=== PATIENT | male | born 1940 | race Caucasian/White ===

== ENCOUNTER 2020-05-19 13:01 | Emergency (ER) | payer MEDICARE, BC, SELFPAY ==
[2020-05-19 13:26] VITALS: BP 97/62; PULSE 65; RESP 18; TEMP 36.3; O2SAT 90
--- NOTE | 2020-05-19 13:45 | ED.GENADUL_ITS ---
Discharge Plan Disposition Patient Disposition: HOME Condition: Good Discharge Details Clinical Impression: Shingles Primary Care Provider: Ricki Traylor ED Provider: Crista Adler Home Meds and New Rx's Prescriptions: New valacyclovir 1 gram tablet 1,000 mg PO TID 7 Days Qty: 21 RF: 0 Continued furosemide 20 MG tablet 20 mg PO DAILY RF: 0 lisinopril [Zestril] 5 MG tablet 5 mg PO DAILY RF: 0 clopidogrel 75 MG tablet 75 mg PO DAILY RF: 0 atorvastatin [Lipitor] 40 MG tablet 40 mg PO HS RF: 0 metoprolol tartrate [Lopressor] 50 MG tablet 50 mg PO BID RF: 0 acetaminophen 325 MG tablet 650 mg PO Q6H PRNRF: 0 Discharge Instructions Instructions: Shingles (ED) Additional Instructions: Encourage water intake. Please take the valacyclovir as prescribed. Your rash is consistent with shingles. I will touch base again with your primary care to discuss your upcoming nuclear stress test and postponing this. Please return if you develop fever/chills, increased pain or other new/worsening symptoms. Otherwise, please follow-up with primary care next week for reevaluation. Referrals: Ricki Traylor [Primary Care Provider] - Discharge Data Discharge Date/Time-TO BE ENTERED AT DEPARTURE: 05/19/20 14:23 Medical Decision Making Patient is a very pleasant 79-year-old male presenting today with chief complaint of rash. He reports that rash began approximately 1 week ago. Initially he noted 1 lesion on the right side of his upper back. States that this then went to. States that he is held steady for a little while but recently the rash has really been increasing. He states that it is burning and occasionally he will get a snap of pain. He denies any fevers or chills. Has not received his zoster vaccine. Has lengthy list of comorbidities including history of cancer. He does report being immunocompromised, I believe he is basing this on his multiple comorbidities. He is not on any medications that owuld immunocompromise him, no hx of HIV. On exam, patient does have a well demarcated dermatomal rash. Is primarily clustered in the back of the mid thoracic spine. There are 3 darkened areas th at appear to be the original and healing areas of rash. However, inter- dispersed with this are small vesicular wound surrounded by erythema. He also have a similar vesicular pattern under the right breast. This does correlate with shingles. Will the patient is outside of the 72-hour kriss for treatment, he is continuing to develop new lesions and is potentially immunocompromised may be feel that antiviral therapy would be appropriate for this patient. He and I discussed expected course. We discussed return precautions. Discussed that he is contagious and to take care during this time. He will f/u with PCP in the next week for reevaluation. All of his quesitons and concerns were addressed, he si in agreement with this plan. HPI General Mode of arrival: ambulatory . Date/Time Provider Initiated Documentation: 05/19/20 13:45 . Limitations to Documentation: no limitations . Information obtained by: patient and RN notes reviewed . History of Present Illness 79 year old M presents to the emergency department with the chief complaint of rash to right side of torso, described as moderate, with intensity rated at 5. Quality is described as burning (zap occassionally ), and is localized to the back. Patient reports radiation to (radiates anteriorly along dermatome). Patient started experiencing this day(s) and it has been constant. No relieving factors improve symptom(s), No exacerbating factors reported . Patient notes rash; denies cough, fever/chills, malaise and shortness of breath. Patient did receive the following treatments prior to arrival, none Related Data Home Medications Medication Instructions Recorded Confirmed acetaminophen 650 mg PO Q6H PRN 10/03/17 05/19/20 atorvastatin [Lipitor] 40 mg PO HS 10/03/17 05/19/20 clopidogrel 75 mg PO DAILY 10/03/17 05/19/20 furosemide 20 mg PO DAILY 10/03/17 05/19/20 lisinopril [Zestril] 5 mg PO DAILY 10/03/17 05/19/20 metoprolol tartrate [Lopressor] 50 mg PO BID 10/03/17 05/19/20 valacyclovir 1,000 mg PO TID 7 Days #21 tab 05/19/20 Previous Rx's Medication Instructions Recorded valacyclovir 1,000 mg PO TID 7 Days #21 tab 05/19/20 Allergies Allergy/AdvReac Type Severity Reaction Status Date / Time No Known Allergies Allergy Unverified 10/17/17 13:58 General Stated Complaint: RashLesion ОЛЬГА: 3 Review of Systems Constitutional Constitutional: Reports as per HPI, Denies chills, Denies fever(s) and Denies headache(s) ENT Ears, Nose, Mouth, and Throat: Denies headache(s) Cardiovascular Cardiovascular: Reports as per HPI, Denies chest pain and Denies dyspnea Respiratory Respiratory: Reports as per HPI, Denies cough and Denies dyspnea Integumentary/Breasts Skin/Breast: Reports as per HPI and Reports rash Neurologic Neurologic: Denies headache(s) PFSH Surgical History Arthroplasty of knee Bilateral Coronary Artery Bypass Gaft (CABG) (~1994) x4 Lumbar Laminectomy (10/25/15) Neck (~2004) Prostatectomy (~1999) +Carcinoma Family History Mother Essential hypertension Congestive heart failure Father Diabetes Stroke Social History Smoking/Tobacco Use Status: Former Tobacco Use Alcohol Intake: current Alcohol Intake frequency: a few times a week Drug use: Never Substance use type: does not use Do you feel safe at home: Yes Do you feel safe in your relationship?: Yes Exam Const General: cooperative, healthy appearing, comfortable and no acute distress Nutritional Appearance: well nourished and overweight Orientation: alert and awake Chest Chest: rash Chest/axillae images: 1. area of erythematous based rash with raised vesicles. Tender to palpation Resp Effort & Inspection: normal respiratory effort, able to speak in complete sentences and no respiratory distress Cardio Rate: regular rate Rhythm: regular rhythm Back/Spine/Pelvis Back/spine/pelvis image: 1. area of rash. There are three larger areas that appear in a more advanced stage of healing. Scattered between this are erythematous based vesicular lesions consistent with zoster.No fluctuant. No opening of the skin. Tender to palpation. Skin Rashes: rashes noted Neuro General: patient alert and patient awake Cognition: normal cognition Speech: speech normal Gait: normal gait Psych Appearance: grossly normal and well kempt Mental Status: mental status grossly normal Speech and Movement: speech and movement normal Course Vital Signs Vital signs: Vital Signs Temperature 36.3 C L 05/19/20 13:26 Pulse 65 05/19/20 13:26 Respiratory Rate 18 05/19/20 13:26 Blood Pressure 97/62 L 05/19/20 13:26 Pulse Oximetry 90 L 05/19/20 13:26 Temperature 36.3 C L 05/19/20 13:26 Temperature Source Temporal Artery Scan 05/19/20 13:26 Pulse 65 05/19/20 13:26 Respiratory Rate 18 05/19/20 13:26 Respiratory Effort Non-Labored 05/19/20 13:33 Blood Pressure 97/62 L 05/19/20 13:26 Blood Pressure Position Sitting 05/19/20 13:26 Pulse Oximetry 90 L 05/19/20 13:26 Oxygen Delivery Method Room Air 05/19/20 13:26 Oxygen Flow Rate 0 05/19/20 13:26 Pain Level 5 05/19/20 13:26
== END 2020-05-19 14:23 | disposition home or self-care (01) ==
PROVIDERS: Emergency Provider Physician Assistant; PCP Internal Medicine
DX: B02.9 Zoster without complications (principal)
CPT/HCPCS: 99283

== ENCOUNTER 2020-10-23 15:58 | Emergency (ER) | payer MEDICARE, BC, SELFPAY ==
[2020-10-23 16:15] VITALS: BP 85/51; PULSE 81; RESP 16; TEMP 36.3; O2SAT 93
--- NOTE | 2020-10-23 16:21 | W.ED.GENAD ---
Discharge Plan Disposition Patient Disposition: HOME Condition: Good Discharge Details Clinical Impression: Acute UTI Primary Care Provider: Jaylan Quintero ED Provider: Joaquín Godoy Home Meds and New Rx's Prescriptions: New levofloxacin 750 mg tablet 750 mg PO DAILY 5 Days Qty: 5 RF: 0 Continued furosemide 20 MG tablet 20 mg PO DAILY RF: 0 lisinopril [Zestril] 5 MG tablet 5 mg PO DAILY RF: 0 clopidogrel 75 MG tablet 75 mg PO DAILY RF: 0 atorvastatin [Lipitor] 40 MG tablet 40 mg PO HS RF: 0 metoprolol tartrate [Lopressor] 50 MG tablet 50 mg PO BID RF: 0 acetaminophen 325 MG tablet 650 mg PO Q6H PRNRF: 0 Discharge Instructions Instructions: Urinary Tract Infection in Men (ED) Additional Instructions: At this time you show evidence of urinary tract infection. Please take the new medication Levaquin as directed. We have given you today's pill, you can take 1 pill daily after that for the next 5 days. The prescription has been sent to your [facility] pharmacy on file. If you notice any worsening of your symptoms, or any new symptoms such as vomiting, diarrhea, fever, chills, shortness of breath, chest pain, numbness, weakness, or fainting , please return immediately to the emergency department for reevaluation. Please follow up with your primary care provider as soon as possible for reassessment and reevaluation. As always, it was a pleasure participating in your medical care today. Referrals: Jaylan Quintero [Primary Care Provider] - Medical Decision Making This is an 79-year-old male with a past medical history prostatectomy, CABG, hypertension, cardiac valve replacement Plavix, who presents today for evaluation of urinary odor. Patient states he has had a history of urinary tract infections over the past 1 to 2 years. Most recent time was about 8 or 9 months ago. Patient states that for the last 1 to 2 months he has noticed an increase in order for Sb, change in the cloudiness, but denies any pain, fever, chills, flank pain, dysuria, lightheadedness, and shortness of breath, chest pain or syncope. He does have a history of prostate surgery in the distant past, and feels that this has not changed anything for him. He has no other complaints at this time. No recent antibiotic use. No other modifying factors. Physical exam is unremarkable, patient's blood pressure is on the low side, however he has no tachycardia, but he does state that his blood pressure always runs on the low side. Review of his previous blood pressures from the past few years do demonstrate evidence of this. Clinically the patient has no fever or chills and does not clinically demonstrate evidence of sepsis. He does have walked around she has no lightheadedness and is notably well. We will get a UA for evaluation of infection. Will monitor closely and reassess. 5 PM Urinalysis has returned and demonstrates evidence of urinary tract infection being nitrite positive, with small leuk esterase and elevated WBCs. Patient remained stable, and was notably well. He shows no signs of toxemia, clinical instability, or fulminant systemic infection. Patient feels well and would like to go home. Patient be started on Levaquin HPI General Date/Time Provider Initiated Documentation: 10/23/20 16:03. HPI Narrative: This is an 79-year-old male with a past medical history prostatectomy, CABG, hypertension, cardiac valve replacement Plavix, who presents today for evaluation of urinary odor. Patient states he has had a history of urinary tract infections over the past 1 to 2 years. Most recent time was about 8 or 9 months ago. Patient states that for the last 1 to 2 months he has noticed an increase in order for Sb, change in the cloudiness, but denies any pain, fever, chills, flank pain, dysuria, lightheadedness, and shortness of breath, chest pain or syncope. He does have a history of prostate surgery in the distant past, and feels that this has not changed anything for him. He has no other complaints at this time. No recent antibiotic use. No other modifying factors. Related Data Home Medications Medication Instructions Recorded Confirmed acetaminophen 650 mg PO Q6H PRN 10/03/17 05/19/20 atorvastatin [Lipitor] 40 mg PO HS 10/03/17 05/19/20 clopidogrel 75 mg PO DAILY 10/03/17 05/19/20 furosemide 20 mg PO DAILY 10/03/17 05/19/20 lisinopril [Zestril] 5 mg PO DAILY 10/03/17 05/19/20 metoprolol tartrate [Lopressor] 50 mg PO BID 02/23/18 10/09/20 levofloxacin 750 mg PO DAILY 5 Days #5 tab 10/23/20 Previous Rx's Medication Instructions Recorded levofloxacin 750 mg PO DAILY 5 Days #5 tab 10/23/20 Allergies Allergy/AdvReac Type Severity Reaction Status Date / Time No Known Allergies Allergy Unverified 10/17/17 13:58 General ОЛЬГА: 3 Review of Systems All systems reviewed & are unremarkable except as noted in HPI and below PFSH Surgical History Arthroplasty of knee Bilateral Coronary Artery Bypass Gaft (CABG) (~1994) x4 Lumbar Laminectomy (10/25/15) Neck (~2004) Prostatectomy (~1999) +Carcinoma Family History Mother Essential hypertension Congestive heart failure Father Diabetes Stroke Social History Smoking/Tobacco Use Status: Former Tobacco Use Smoking risk assessment performed?: Yes Alcohol Intake: current Alcohol Intake frequency: a few times a week Drug use: Never Substance use type: does not use Do you feel safe at home: Yes Do you feel safe in your relationship?: Yes Exam Narrative Exam Narrative: 1.Const: Well-nourished, Well-developed, appearing stated age 2.Eyes: PERRL, no conjunctival injection, and symmetrical lids. 3.ENT: Atraumatic external nose and ears. Moist MM. Neck: Symmetric, trachea midline, No thyromegaly. 4.CVS: +S1/S2, No murmurs or gallops. Peripheral pulses 2+ and equal in all extremities. Brisk capillary refill in all extremities. 5.RESP: Unlabored respiratory effort. Clear to auscultation bilaterally. No wheezes rales or rhonchi 6.GI: Soft, Nontender/Nondistended, No hepatosplenomegaly. No guarding or rebound. 7.MSK: Normocephalic/Atraumatic, Extremities w/o deformity or ttp No cyanosis or clubbing, Normal movement of all extremities 8.Skin: Warm, Dry. No rashes or lesions. 9.Neuro: rehabilitation assistant II-XII grossly intact. Sensation grossly intact, no focal neurologic deficits. 10.Psych: (AAO) x3. Appropriate mood and affect
[2020-10-23 16:31] LABS: Bilirubin Negative (Negative); Blood Small (Negative); Clarity Cloudy (Clear); Glucose Negative (Negative); Ketones Trace mg/dL (Negative); Leukocyte Esterase Small (Negative); Nitrite Positive (Negative); Urobilinogen 0.2 EU/dL (Up TO 0.2)
[2020-10-23 16:41] LABS: Bacteria Many HPF (Negative); C & S Indicated? Yes; Casts Negative LPF (Negative); Crystals Negative HPF (Negative); Epithelial Cells Rare HPF (Negative); Mucus Negative (Negative); WBC >50 HPF (0-5)
[2020-10-23] MEDS: levoFLOXacin 500 MG, levoFLOXacin 250 MG 750 MG PO (17:02)
== END 2020-10-23 17:10 | disposition home or self-care (01) ==
PROVIDERS: Emergency Provider Student in an Organized Health Care Education/Training Program; PCP Family Medicine
DX: N39.0 Urinary tract infection, site not specified (principal); B96.20 Unspecified Escherichia coli [E. coli] as the cause of diseases classified elsewhere; Z87.440 Personal history of urinary (tract) infections
CPT/HCPCS: 87077; 99283; 81003; 81015; 87086; 87186

== ENCOUNTER 2020-11-29 15:49 | Outpatient (RCR) | payer MEDICARE, BC, SELFPAY | END 2020-12-08 23:59 | disposition home or self-care (01) | LOC: CR 15:49 | PROVIDERS: PCP Family Medicine; Visit Provider Family Medicine | DX: Z51.89 Encounter for other specified aftercare (principal); I25.10 Atherosclerotic heart disease of native coronary artery without angina pectoris; Z95.5 Presence of coronary angioplasty implant and graft; Z95.1 Presence of aortocoronary bypass graft ==

== ENCOUNTER 2020-12-29 13:25 | Emergency (ER) | payer MEDICARE, BC, SELFPAY ==
[2020-12-29] VITALS (9 sets, daily range): BP systolic 92–133; BP diastolic 42–79; PULSE 66–82; RESP 18–35; TEMP 36.7–37; O2SAT 94–95
--- NOTE | 2020-12-29 13:15 | RT.EKG_ITS ---
APPROVED REPORT Exam: Resting ECG Reason for Exam: short of breath Patient Location: E HR:74 bpm ECG Measurements Heart Rate 74 AXIS WA 193 P -20 QRSd 101 QRS -2 QT 358 T 81 QTc 396 Conclusion Sinus rhythm...normal P axis, V-rate 60- 99 Low voltage, precordial leads...precordial leads <1.0mV Consider anteroseptal infarct...Q >30mS, dimin R, V1-V2
--- NOTE | 2020-12-29 13:31 | ED.GENADUL_ITS ---
Discharge Plan Disposition Patient Disposition: HOME Condition: Stable Discharge Details Clinical Impression: Acute UTI, Acute hypotension, Hyperkalemia Primary Care Provider: Jaylan Quintero ED Provider: Harshil Schwartz Home Meds and New Rx's Prescriptions: New levofloxacin 750 mg tablet 750 mg PO DAILY Qty: 6 RF: 0 Continued furosemide 20 MG tablet 20 mg PO DAILY RF: 0 lisinopril [Zestril] 5 MG tablet 5 mg PO DAILY RF: 0 clopidogrel 75 MG tablet 75 mg PO DAILY RF: 0 atorvastatin [Lipitor] 40 MG tablet 40 mg PO HS RF: 0 metoprolol tartrate [Lopressor] 50 MG tablet 50 mg PO BID RF: 0 acetaminophen 325 MG tablet 650 mg PO Q6H PRNRF: 0 Discharge Instructions Instructions: Urinary Tract Infection in Men (ED), Hyperkalemia (ED) Additional Instructions: Your labs showed evidence of a urinary tract infection and your potassium was mildly elevated Your blood pressure was normal after a small amount of IV fluids which usually indicates mild dehydration follow up with your primary care provider this week for a potassium recheck and also make them aware of the lesion in the left kidney seen on cat scan that will need follow up imaging if you feel more ill, have worsening difficulty breathing or chest pain/pressure return to the emergency department Medical Decision Making 80 yo male with hx of cad s/p cabg and stents last placed in November per patient, prior aortic valve replacement, htn, who comes in with cardiac rehab staff after he showed up for a session today and his BP was noted to be in the 80's systolic. HE states he has baseline fatigue and dyspnea but is not sure if these symptoms would have brought him in as he states he normally has these symptoms. He denies any chest pain or pressure, no fevers or cough. He is caox4 on arrival without deficits, no signs of distress on exam, clear lung exam, no murmurs, and on bedside u/s has no pericardial effusion and no significant b lines, is noted to have a BP of 95/50 on exam. Unclear etiology of his symptoms based on history and exam, will obtain labs including cbc to evaluate for anem ia, evaluate for electrolyte abnormalities and also evaluate for possible nstemi with troponin though has no chest pain so doubt this.. Will obtain cxr to evaluate for infiltrate vs pulmonary edema. Will give gently hydration with 500cc normal saline and reassess labs show mild anemia, creatinine of 1.4, and potassium of 5.8, no changes on ecg, UA concerning for possible uti. He has endorses some intermittent right flank pain, will obtain cta of the chest to evaluate for PE and pneumonia given his symptoms of dyspnea and ct abdomen/pelvis as well. pt's ct shows no acute findings, has mass on left kidney which will need follow up and per patient he is already aware of this. He is sleeping on reassessment and awakens easily to voice. HAs no complaints now and BP has been normal other than when he first arrived, is now 115/70 and no hypoxia. He feels well enough for d/c and feel he is stable at this time for this. He understands he needs to see his pcp this week and have potassium rechecked. Will start levofloxacin for possible ut as well. Return precautions given Differential Diagnosis Differential Diagnosis: anemia, pneumonia, chf, copd Medical Records Medical records reviewed: Yes I reviewed the patient's medical records. Imaging Data Radiologic Study: Attestation: I personally reviewed and interpreted this imaging study as follows: Imaging: CT Scan Radiologist's impression: Exam(s) a CT:CT chest PE abd & pelvis w Exam(s) CT CHEST PE ABD ? PELVIS W EXAM:? CT CHEST PE ABD ? PELVIS W TECHNIQUE:? CT angiography of the chest, abdomen and pelvis was performed with bolus infusion of 100 cc of Omnipaque 350. Axial CT angiography was performed with multi-slice acquisition and multi-planar and/or 3D reconstructions. COMPARISON:? No exams were available for comparison FINDINGS: ?The lungs are predominantly clear.? There are multiple calcified pleural plaques bilaterally consistent with remote asbestos exposure.? No pleural effusion. No evidence of pulmonary embolic disease. No thoracic aortic dissection or aneurysm. Major branches of the thoracic aorta appear normal.? No mediastinal or hilar adenopathy. Tracheobronchial tree appears intact. There is an aortic valve prosthesis and there are multiple apparent coronary artery stents.? No cardiomegaly.? No pericardial effusion. No focal hepatic abnormality seen.? Gallbladder is contracted.? No biliary dilatation.? Pancreas is atrophic but otherwise unremarkable.? Spleen contains a few calcifications but is otherwise unremarkable. There are numerous bilateral renal cysts, the largest measuring about 5.6 cm in diameter on the left.? There is a rim calcified intermediate attenuation left lower pole renal mass, this is about 2.2 cm in greatest diameter and shows mean attenuation around 50-60 Hounsfield units.? These findings are indeterminate for malignancy.? Follow-up renal protocol CT or renal protocol MRI recommended. Note is made of a large calcification of the upper pole of the right kidney. No hydronephrosis or ureterolithiasis.. There is an abdominal aortic aneurysm which is infrarenal and which measures up to about 3.6 cm in diameter.? Major visceral branches of the aorta appear intact except for mild wall calcification.? No abdominal or pelvic adenopathy. Normal appendix. No significant abdominal wall hernia. No focal bowel pathology. There are multiple vascular clips in the pelvis.? Urinary bladder is nearly empty but appears thick walled, this is a nonspecific finding which could r epresent chronic bladder outlet obstruction, cystitis, or prior radiation treatment. IMPRESSION: No evidence of acute process of the chest abdomen or pelvis.? Multiple incidental findings as described above. Indeterminate left renal lesion, recommend renal protocol CT or MRI. RADIATION DOSE DELIVERED:? 1,699.66mGy.cm Total DLP 1,699.66mGy.cm Total DLP DATA REPOSITORY:? All CT scans at this facility are submitted to the National Radiology Data Registry (NRDR) Dose Index Registry (DIR) with the [employer] ([employer]). RADIATION OPTIMIZATION:? All CT scans at this facility use at least one of these dose optimization techniques: automated exposure control; mA and/or kV adjustment per patient size (includes targeted exams where dose is matched to clinical indication); or iterative reconstruction. Lab Data Lab results reviewed: Yes I reviewed the patient's lab results. ECG Data Attestation: I personally reviewed and interpreted this ECG (s) as follows: Prior ECG tracings: not available for review Interpretation: sinus rhythm, rate of 74, pr 193, no acute st t wave ischemic findings HPI General Mode of arrival: ambulatory . Date/Time Provider Initiated Documentation: 12/29/20 13:25 . Limitations to Documentation: no limitations . Information obtained by: patient . History of Present Illness 80 year old M presents to the emergency department with the chief complaint of low bp at cardiac rehab, described as moderate, and it has been constant. No relieving factors improve symptom(s), No exacerbating factors reported . Patient notes shortness of breath and other (fatigue ). Related Data Home Medications Medication Instructions Recorded Confirmed acetaminophen 650 mg PO Q6H PRN 10/03/17 12/29/20 atorvastatin [Lipitor] 40 mg PO HS 10/03/17 12/29/20 clopidogrel 75 mg PO DAILY 10/03/17 12/29/20 furosemide 20 mg PO DAILY 10/03/17 12/29/20 lisinopril [Zestril] 5 mg PO DAILY 10/03/17 12/29/20 metoprolol tartrate [Lopressor] 50 mg PO BID 10/03/17 12/29/20 levofloxacin 750 mg PO DAILY #6 tab 12/29/20 Previous Rx's Medication Instructions Recorded levofloxacin 750 mg PO DAILY #6 tab 12/29/20 Allergies Allergy/AdvReac Type Severity Reaction Status Date / Time No Known Allergies Allergy Unverified 12/29/20 13:34 General ОЛЬГА: 3 Review of Systems All systems reviewed & are unremarkable except as noted in HPI and below Constitutional Constitutional: Denies chills and Denies fever(s) Cardiovascular Cardiovascular: Denies chest pain Respiratory Respiratory: Denies cough Gastrointestinal Gastrointestinal: Denies abdominal pain, Denies nausea and Denies vomiting Musculoskeletal Musculoskeletal: Denies joint swelling PFSH Surgical History Arthroplasty of knee Bilateral Coronary Artery Bypass Gaft (CABG) (~1994) x4 Lumbar Laminectomy (10/25/15) Neck (~2004) Prostatectomy (~1999) +Carcinoma Family History Mother Essential hypertension Congestive heart failure Father Diabetes Stroke Social History Smoking/Tobacco Use Status: Former Tobacco Use Smoking risk assessment performed?: Yes Alcohol Intake: current Alcohol Intake frequency: a few times a week Drug use: Never Substance use type: does not use Do you feel safe at home: Yes Do you feel safe in your relationship?: Yes Exam Const General: no acute distress Orientation: alert HENMT Head: normal to inspection Ears: external ears normal General nose exam: external nose normal Mouth: moist mucous membranes Eyes General: appearance normal, both eyes and all related structures Neck Neck: normal visual inspection Resp Effort & Inspection: normal respiratory effort and able to speak in complete sentences Cardio Rate: regular rate GI Palpation: soft and nontender Skin General skin exam: no rashes or lesions noted Neuro General: patient alert and patient oriented x3 Extrem General: normal to inspection Psych Mental Status: mental status grossly normal
[2020-12-29 13:39] LABS: Abs Immature Grans 0.01 10^3/uL (0.0-0.06); Absolute Basophil Count 0.03 10^3/uL (0.0-0.2); Absolute Eosinophil Count 0.06 10^3/uL (0.0-0.7); Absolute Monocyte Count 0.51 10^3/uL (0.1-0.8); Absolute Neutrophil Count 4.02 10^3/uL (1.2-6.7); Basophils % 0.5; Eosinophils % 1.1; HCT 36.5 % (40.0-50.0); HGB 12.1 g/dL (13.5-17.5); Immature Grans % 0.2; Lymphocytes % 17.8; MCH 32.1 pg (27.0-33.0); MCHC 33.2 % (32.0-36.0); MCV 96.8 fL (80-95); MPV 8.7 fL (8.0-11.0); Monocytes % 9.1; Neutrophils % 71.3; Nucleated RBC 0 %; Platelet Count 125 10^3/uL (130-400); RBC 3.77 10^6/uL (4.36-5.78); RDW 13.2 % (11.8-14.1); RDW-SD 47.1 fL; WBC 5.63 10^3/uL (4.4-10.8)
[2020-12-29 13:40] LABS: BE (Venous) 5 mmol/L (-2-3); HCO3 (Venous) 31 mmol/L (23-28); O2 Sat (Venous) 65 %; TCO2 (Venous) 28 mmol/L (24-29); pCO2 (Venous) 55 mmHg (41-51); pH (Venous) 7.35 (7.31-7.41); pO2 (Venous) 34 mmHg
[2020-12-29] MEDS: Normal Saline 250 ML 500 ML IV (13:51)
[2020-12-29 13:54] LABS: PTT Activated 23.9 sec (21.0-27.5); Prothrombin Time 10.2 sec (9.3-11.0)
[2020-12-29 13:59] LABS: Bilirubin Negative (Negative); Blood Negative (Negative); Clarity Clear (Clear); Glucose Negative (Negative); Ketones Trace mg/dL (Negative); Leukocyte Esterase Trace (Negative); Nitrite Negative (Negative); Specific Gravity 1.025 (1.005-1.025); pH 5.5 (5-8)
[2020-12-29 14:00] LABS: ALT 43 U/L (16-63); AST 25 U/L (15-37); Albumin 3.7 g/dL (3.4-5.0); Alkaline Phosphatase 84 U/L (46-116); Anion Gap 4.3 mmol/L (3-11); BUN 39 mg/dL (7-18); Bilirubin, Total 0.4 mg/dL (0.2-1.0); CO2 30.7 mmol/L (21.0-32.0); CREATININE 1.4 mg/dL (0.70-1.30); Calcium 8.6 mg/dL (8.5-10.1); Chloride 105 mmol/L (98-107); Estimated GFR 48.64 (mL/min/1.73m2); Glucose 137 mg/dL (74-106); Lipase 91 U/L (73-393); Magnesium 2.1 mg/dL (1.8-2.4); Potassium 5.8 mmol/L (3.5-5.1); Sodium 140 mmol/L (136-145)
--- NOTE | 2020-12-29 14:00 | DI.CT_ITS ---
Exam(s) CT CHEST PE ABD PELVIS W EXAM: CT CHEST PE ABD PELVIS W TECHNIQUE: CT angiography of the chest, abdomen and pelvis was performed with bolus infusion of 100 cc of Omnipaque 350. Axial CT angiography was performed with multi-slice acquisition and multi-planar and/or 3D reconstruc tions. COMPARISON: No exams were available for comparison FINDINGS: The lungs are predominantly clear. There are multiple calcified pleural plaques bilaterally consist ent with remote asbestos exposure. No pleural effusion. No evidence of pulmonary embolic disease. No thoracic aortic dissection or aneurysm. Major branches of the thoracic aorta appear normal. No medi astinal or hilar adenopathy. Tracheobronchial tree appears intact. There is an aortic valve prosthesis and there are multiple apparent coronary artery stents. No cardi omegaly. No pericardial effusion. No focal hepatic abnormality seen. Gallbladder is contracted. No biliary dilatation. Pancreas is a trophic but otherwise unremarkable. Spleen contains a few calcifications but is otherwise unremarkab le. There are numerous bilateral renal cysts, the largest measuring about 5.6 cm in diameter on the left. There is a rim calcified intermediate attenuation left lower pole renal mass, this is about 2.2 cm in greatest diameter and shows mean attenuation around 50-60 Hounsfield units. These findings are in determinate for malignancy. Follow-up renal protocol CT or renal protocol MRI recommended. Note is made of a large calcification of the upper pole of the right kidney. No hydronephrosis or ureterolithiasis.. There is an abdominal aortic aneurysm which is infrarenal and which measures up to about 3.6 cm in di ameter. Major visceral branches of the aorta appear intact except for mild wall calcification. No a bdominal or pelvic adenopathy. Normal appendix. No significant abdominal wall hernia. No focal bowel pathology. There are multiple vascular clips in the pelvis. Urinary bladder is nearly empty but appears thick w alled, this is a nonspecific finding which could represent chronic bladder outlet obstruction, cystit is, or prior radiation treatment. IMPRESSION: No evidence of acute process of the chest abdomen or pelvis. Multiple incidental findings as describ ed above. Indeterminate left renal lesion, recommend renal protocol CT or MRI. RADIATION DOSE DELIVERED: 1,699.66mGy.cm Total DLP 1,699.66mGy.cm Total DLP DATA REPOSITORY: All CT scans at this facility are submitted to the National Radiology Data Registry (NRDR) Dose Index Registry (DIR) with the [employer] ([employer]). RADIATION OPTIMIZATION: All CT scans at this facility use at least one of these dose optimization te chniques: automated exposure control; mA and/or kV adjustment per patient size (includes targeted exa ms where dose is matched to clinical indication); or iterative reconstruction.
[2020-12-29 14:01] LABS: Troponin I < 0.05 ng/mL (<0.06)
[2020-12-29 14:07] LABS: Bacteria Few HPF (Negative); C & S Indicated? Yes; Casts 3-5 Hyaline LPF (Negative); Crystals Negative HPF (Negative); Epithelial Cells Few HPF (Negative); Mucus Moderate (Negative)
--- NOTE | 2020-12-29 14:27 | NUR.NOTE ---
1345: spoke with pt's Nursing Note:
[2020-12-29] MEDS: Omnipaque 350 MG/ML 100 ML BTL IJ (14:31)
[2020-12-29] MEDS: Normal Saline - Diluent 50 ML VIAL IV (14:32)
[2020-12-29] MEDS: levoFLOXacin 500 MG, levoFLOXacin 250 MG 750 MG PO (15:27)
== END 2020-12-29 15:34 | disposition home or self-care (01) ==
PROVIDERS: Emergency Provider Emergency Medicine; PCP Family Medicine
DX: N39.0 Urinary tract infection, site not specified (principal); I95.9 Hypotension, unspecified; E87.5 Hyperkalemia
CPT/HCPCS: 36415; 71275; 74177; 80053; 82805; 83690; 93005; 96360; 99285; 81003; 81015; 83735; 84484; 85025; 85610; 85730; 87086; 93010; 99284; J3490

== ENCOUNTER 2021-01-01 16:21 | Outpatient (RCR) | payer MEDICARE, BC, SELFPAY | END 2021-01-08 23:59 | disposition home or self-care (01) | LOC: CR 16:21 | PROVIDERS: PCP Family Medicine; Visit Provider Family Medicine | DX: Z51.89 Encounter for other specified aftercare (principal); I25.10 Atherosclerotic heart disease of native coronary artery without angina pectoris; Z95.5 Presence of coronary angioplasty implant and graft | CPT/HCPCS: S9472 ==

== ENCOUNTER 2021-01-03 13:36 | Emergency (ER) | payer MEDICARE, BC, SELFPAY ==
[2021-01-03] VITALS (24 sets, daily range): BP systolic 83–116; BP diastolic 43–70; PULSE 64–84; RESP 19–32; TEMP 36.9; O2SAT 91–95
--- NOTE | 2021-01-03 13:45 | RT.EKG_ITS ---
APPROVED REPORT Exam: Resting ECG Reason for Exam: dizzy Patient Location: E HR:71 bpm ECG Measurements Heart Rate 71 AXIS UT 199 P -15 QRSd 90 QRS -9 QT 383 T 40 QTc 417 Conclusion Sinus rhythm...normal P axis, V-rate 60- 99 Inferior infarct, old...Q >35mS, II III aVF Anterior infarct, old...Q >40mS, abnormal ST-T, V2-V5
[2021-01-03] MEDS: Normal Saline 500 ML IV (14:00)
[2021-01-03 14:02] LABS: Abs Immature Grans 0.02 10^3/uL (0.0-0.06); Absolute Basophil Count 0.02 10^3/uL (0.0-0.2); Absolute Eosinophil Count 0.05 10^3/uL (0.0-0.7); Absolute Monocyte Count 0.46 10^3/uL (0.1-0.8); Absolute Neutrophil Count 4.27 10^3/uL (1.2-6.7); Basophils % 0.3; Eosinophils % 0.9; HCT 35.4 % (40.0-50.0); HGB 11.8 g/dL (13.5-17.5); Immature Grans % 0.3; Lymphocytes % 15.7; MCHC 33.3 % (32.0-36.0); MCV 95.9 fL (80-95); MPV 8.8 fL (8.0-11.0); Neutrophils % 74.8; Nucleated RBC 0 %; Platelet Count 140 10^3/uL (130-400); RBC 3.69 10^6/uL (4.36-5.78); RDW 13.2 % (11.8-14.1); RDW-SD 46.7 fL; WBC 5.72 10^3/uL (4.4-10.8)
[2021-01-03 14:22] LABS: ALT 47 U/L (16-63); AST 27 U/L (15-37); Albumin 3.6 g/dL (3.4-5.0); Alkaline Phosphatase 91 U/L (46-116); Anion Gap 6.1 mmol/L (3-11); BUN 36 mg/dL (7-18); Bilirubin, Total 0.4 mg/dL (0.2-1.0); CO2 28.9 mmol/L (21.0-32.0); CREATININE 1.7 mg/dL (0.70-1.30); Calcium 8.7 mg/dL (8.5-10.1); Chloride 105 mmol/L (98-107); Estimated GFR 38.88 (mL/min/1.73m2); Glucose 128 mg/dL (74-106); Magnesium 1.9 mg/dL (1.8-2.4); Potassium 5.3 mmol/L (3.5-5.1); Sodium 140 mmol/L (136-145); Total Protein 6.9 g/dL (6.4-8.2)
[2021-01-03 14:31] LABS: Troponin I < 0.05 ng/mL (<0.06)
--- NOTE | 2021-01-03 15:32 | ED.GENADUL_ITS ---
Discharge Plan Disposition Patient Disposition: HOME Condition: Stable Discharge Details Clinical Impression: Low blood pressure reading Primary Care Provider: Jaylan Quintero ED Provider: Leroy Ochoa Home Meds and New Rx's Prescriptions: Continued levofloxacin 750 mg tablet 750 mg PO DAILY Qty: 6 RF: 0 furosemide 20 MG tablet 20 mg PO DAILY RF: 0 clopidogrel 75 MG tablet 75 mg PO DAILY RF: 0 atorvastatin [Lipitor] 40 MG tablet 40 mg PO HS RF: 0 metoprolol tartrate [Lopressor] 50 MG tablet 50 mg PO BID RF: 0 acetaminophen 325 MG tablet 650 mg PO Q6H PRNRF: 0 Discontinued lisinopril [Zestril] 5 MG tablet 5 mg PO DAILY RF: 0 Discharge Instructions Instructions: Hypotension (ED) Additional Instructions: Please stop taking lisinopril and monitor your blood pressure at least twice a day. Call your primary care physician tomorrow to discuss ongoing medication management. No exertional activities and no operating heavy machinery or motor vehicle until cleared to do so. Return to the ER for any worsening or new concerning symptoms. Referrals: Jaylan Quintero [Primary Care Provider] - Medical Decision Making 80-year-old male with history of coronary artery disease status post CABG and stent in November, aortic valve replacement, here at cardiac rehab and noted to have asymptomatic hypotension. Patient had similar presentation 5 days ago and had an extensive work-up including CT of the chest and was unremarkable. He was found to have a urinary tract infection and was started on Levaquin which he has been taking. Patient has no complaints at this time. His systolic blood pressures in the 90s which he notes is his chronic baseline. EKG to assess for arrhythmia was reviewed and interpreted by me: Sinus rhythm 71 bpm, no STEMI, nondiagnostic. I reviewed and compared to prior EKG 12/29/2020 and there is no significant change in EKG. Labs reviewed to assess for electrolyte abnormality and unremarkable. Troponin negative. I suspect his hypotension is related to antihypertensive medication as he is on both lisinopril and metoprolol. Plan will be to discontinue lisinopril and have him monitor his blood pressure at least twice a day and have him follow-up with his primary care physician. Lab Data Lab results reviewed: Yes I reviewed the patient's lab results. Labs: Laboratory Tests Range/Units 01/03/21 01/03/21 13:46 13:46 WBC (4.4-10.8) 10^3/uL 5.72 RBC (4.36-5.78) 10^6/uL 3.69 L Hgb (13.5-17.5) g/dL 11.8 L Hct (40.0-50.0) % 35.4 L MCV (80-95) fL 95.9 H MCH (27.0-33.0) pg 32.0 MCHC (32.0-36.0) % 33.3 RDW (11.8-14.1) % 13.2 Plt Count (130-400) 10^3/uL 140 MPV (8.0-11.0) fL 8.8 Immature Gran % 0.3 Neutrophils % 74.8 Lymphocytes % 15.7 Monocytes % 8.0 Eosinophils % 0.9 Basophils % 0.3 Nucleated RBC % % 0 Absolute Neutrophils (1.2-6.7) 10^3/uL 4.27 Absolute Lymphocytes (1.2-3.4) 10^3/uL 0.90 L Absolute Monocytes (0.1-0.8) 10^3/uL 0.46 Absolute Eosinophils (0.0-0.7) 10^3/uL 0.05 Absolute Basophils (0.0-0.2) 10^3/uL 0.02 Sodium (136-145) mmol/L 140 Potassium (3.5-5.1) mmol/L 5.3 H Chloride (98-107) mmol/L 105 Carbon Dioxide (21.0-32.0) mmol/L 28.9 Anion Gap (3-11) mmol/L 6.1 BUN (7-18) mg/dL 36 H Creatinine (0.70-1.30) mg/dL 1.7 H Estimated GFR/1.73 m2 (mL/min/1.73m2) 38.88 Glucose (74-106) mg/dL 128 H Calcium (8.5-10.1) mg/dL 8.7 Magnesium (1.8-2.4) mg/dL 1.9 Total Bilirubin (0.2-1.0) mg/dL 0.4 AST (15-37) U/L 27 ALT (16-63) U/L 47 Alkaline Phosphatase (46-116) U/L 91 Troponin I (<0.06) ng/mL < 0.05 Total Protein (6.4-8.2) g/dL 6.9 Albumin (3.4-5.0) g/dL 3.6 HPI General Mode of arrival: ambulatory . Date/Time Provider Initiated Documentation: 01/03/21 13:51 . Limitations to Documentation: no limitations . Information obtained by: patient . HPI Narrative: 80-year-old male presents from cardiac rehab with episode of low blood pressure. Patient denies complaint. He feels well. He notes his blood pressures typically in the 90s. He does take his antihypertensives both metoprolol twice daily and lisinopril once a day as prescribed and he did take them this morning. Cardiac rehab nursing noted his blood pressure was in the 60s. He denies having any symptoms at that time. He specifically denies chest pain abdominal pain shortness of breath or fever. Related Data Home Medications Medication Instructions Recorded Confirmed acetaminophen 650 mg PO Q6H PRN 10/03/17 01/03/21 atorvastatin [Lipitor] 40 mg PO HS 10/03/17 01/03/21 clopidogrel 75 mg PO DAILY 10/03/17 01/03/21 furosemide 20 mg PO DAILY 10/03/17 01/03/21 metoprolol tartrate [Lopressor] 50 mg PO BID 10/03/17 01/03/21 levofloxacin 750 mg PO DAILY #6 tab 12/29/20 01/03/21 Previous Rx's Medication Instructions Recorded levofloxacin 750 mg PO DAILY #6 tab 12/29/20 Allergies Allergy/AdvReac Type Severity Reaction Status Date / Time No Known Allergies Allergy Unverified 12/29/20 13:34 General Stated Complaint: Dizzy/Sync ОЛЬГА: 3 Review of Systems All systems reviewed & are unremarkable except as noted in HPI and below Constitutional Constitutional: Denies fever(s) Cardiovascular Cardiovascular: Denies chest pain and Reports dyspnea on exertion (chronic unchanged) Respiratory Respiratory: Reports dyspnea on exertion (chronic unchanged) [facility] Surgical History Arthroplasty of knee Bilateral Coronary Artery Bypass Gaft (CABG) (~1994) x4 Lumbar Laminectomy (10/25/15) Neck (~2004) Prostatectomy (~1999) +Carcinoma Family History Mother Essential hypertension Congestive heart failure Father Diabetes Stroke Social History Smoking/Tobacco Use Status: Former Tobacco Use Smoking risk assessment performed?: Yes Alcohol Intake: current Alcohol Intake frequency: a few times a week Drug use: Never Substance use type: does not use Do you feel safe at home: Yes Do you feel safe in your relationship?: Yes Exam Const General: cooperative and no acute distress HENMT Head: normocephalic and atraumatic Mouth: moist mucous membranes Eyes Conjunctivae: normal conjunctivae Sclera: normal sclerae Neck Neck: trachea midline and supple Resp Auscultation: clear to auscultation bilaterally, no rales, no rhonchi and no wheezes Cardio Rate: regular rate and not tachycardic Rhythm: regular rhythm GI Palpation: soft, not firm, no guarding, no masses, not rigid and nontender Skin General skin exam: no rashes or lesions noted Neuro General: patient alert, patient awake, patient oriented x3 and tone normal Extrem General: no edema Psych Appearance: grossly normal Mental Status: mental status grossly normal Speech and Movement: speech and movement normal Course Vital Signs Vital signs: Vital Signs Temperature 36.9 C 01/03/21 13:38 Pulse 84 01/03/21 13:38 Blood Pressure 110/54 L 01/03/21 13:38 Pulse Oximetry 92 01/03/21 13:38 Temperature 36.9 C 01/03/21 13:38 Temperature Source Temporal Artery Scan 01/03/21 13:38 Pulse 67 01/03/21 14:36 Pulse 66 01/03/21 14:50 Respiratory Rate 21 01/03/21 14:40 Respiratory Effort Non-Labored 01/03/21 14:41 Respiratory Depth Normal 01/03/21 14:41 Respiratory Pattern Normal 01/03/21 14:41 Blood Pressure 92/47 L 01/03/21 14:36 Blood Pressure Mean 58 01/03/21 14:36 Blood Pressure Position Sitting 01/03/21 13:38 Pulse Oximetry 93 01/03/21 14:50 Oxygen Delivery Method Room Air 01/03/21 13:38 Oxygen Flow Rate 0 01/03/21 13:38 Pain Level 0 01/03/21 13:38 Lab/Test Results Lab/Test Results: Laboratory Tests Range/Units 01/03/21 01/03/21 13:46 13:46 WBC (4.4-10.8) 10^3/uL 5.72 RBC (4.36-5.78) 10^6/uL 3.69 L Hgb (13.5-17.5) g/dL 11.8 L Hct (40.0-50.0) % 35.4 L MCV (80-95) fL 95.9 H MCH (27.0-33.0) pg 32.0 MCHC (32.0-36.0) % 33.3 RDW (11.8-14.1) % 13.2 Plt Count (130-400) 10^3/uL 140 MPV (8.0-11.0) fL 8.8 Immature Gran % 0.3 Neutrophils % 74.8 Lymphocytes % 15.7 Monocytes % 8.0 Eosinophils % 0.9 Basophils % 0.3 Nucleated RBC % % 0 Absolute Neutrophils (1.2-6.7) 10^3/uL 4.27 Absolute Lymphocytes (1.2-3.4) 10^3/uL 0.90 L Absolute Monocytes (0.1-0.8) 10^3/uL 0.46 Absolute Eosinophils (0.0-0.7) 10^3/uL 0.05 Absolute Basophils (0.0-0.2) 10^3/uL 0.02 Sodium (136-145) mmol/L 140 Potassium (3.5-5.1) mmol/L 5.3 H Chloride (98-107) mmol/L 105 Carbon Dioxide (21.0-32.0) mmol/L 28.9 Anion Gap (3-11) mmol/L 6.1 BUN (7-18) mg/dL 36 H Creatinine (0.70-1.30) mg/dL 1.7 H Estimated GFR/1.73 m2 (mL/min/1.73m2) 38.88 Glucose (74-106) mg/dL 128 H Calcium (8.5-10.1) mg/dL 8.7 Magnesium (1.8-2.4) mg/dL 1.9 Total Bilirubin (0.2-1.0) mg/dL 0.4 AST (15-37) U/L 27 ALT (16-63) U/L 47 Alkaline Phosphatase (46-116) U/L 91 Troponin I (<0.06) ng/mL < 0.05 Total Protein (6.4-8.2) g/dL 6.9 Albumin (3.4-5.0) g/dL 3.6
== END 2021-01-03 16:12 | disposition home or self-care (01) ==
PROVIDERS: Emergency Provider Student in an Organized Health Care Education/Training Program; PCP Family Medicine
DX: R03.1 Nonspecific low blood-pressure reading (principal); T46.5X5A Adverse effect of other antihypertensive drugs, initial encounter
CPT/HCPCS: 36415; 80053; 93005; 96360; 99284; 83735; 84484; 85025; 93010

== ENCOUNTER 2021-01-24 09:33 | Emergency (ER) | payer MEDICARE, BC, SELFPAY ==
[2021-01-24] VITALS (24 sets, daily range): BP systolic 131–160; BP diastolic 70–86; PULSE 59–60; RESP 16–29; TEMP 36.3; O2SAT 81–100
--- NOTE | 2021-01-24 09:45 | RT.EKG_ITS ---
APPROVED REPORT Exam: Resting ECG Reason for Exam: Fall, Head Injury, hx CAD Patient Location: E HR:60 bpm ECG Measurements Heart Rate 60 AXIS PA 151 P [id number] QRSd 99 QRS -17 QT 430 T 88 QTc 430 Conclusion NSR, rate 60 Inferior infarct, old...Q >35mS, II III aVF Anterior infarct, old...Q >40mS, abnormal ST-T, V2-V5
--- NOTE | 2021-01-24 09:46 | ED.GENADUL_ITS ---
Discharge Plan Disposition Patient Disposition: HOME Condition: Stable Discharge Details Clinical Impression: Closed head injury Primary Care Provider: Jaylan Quintero ED Provider: Audrey Whitney Home Meds and New Rx's Prescriptions: Continued furosemide 20 MG tablet 10 mg PO DAILY RF: 0 clopidogrel 75 MG tablet 75 mg PO DAILY RF: 0 atorvastatin [Lipitor] 40 MG tablet 40 mg PO HS RF: 0 metoprolol tartrate [Lopressor] 50 MG tablet 50 mg PO BID RF: 0 acetaminophen 325 MG tablet 650 mg PO Q6H PRNRF: 0 aspirin 81 mg Tablet,Delayed Release (Dr/Ec) 81 mg PO DAILY RF: 0 triamcinolone acetonide 0.1 % Ointment 1 applic TOPICAL BID PRNRF: 0 nitroglycerin 0.4 mg tablet, sublingual 4 mg sublingual Q5-6M PRNRF: 0 diphenhydramine-acetaminophen [Tylenol PM Extra Strength] 25-500 mg Tablet 1 tab PO QHS PRNRF: 0 Discharge Instructions Instructions: Head Injury (ED) Additional Instructions: At this time the head and neck CT shows no acute fracture or bleeding. Please closely observe over the next 1 to 2 days for any worsening headache, blurry v ision, confusion, vomiting or any concerns please return to the emergency room. Do not drink alcohol or take any altering medications that may mask worsening head injury. Follow up with primary care provider in 3-5 days. Return to ED sooner if any worsening or concerns. Increase oral fluids. Please take Tylenol 1 to 2 tablets every 4-6 hours as needed for pain and swelling. Apply ice to the bump on head. Referrals: Jaylan Quintero [Primary Care Provider] - Discharge Data Discharge Date/Time-TO BE ENTERED AT DEPARTURE: 01/24/21 12:12 Medical Decision Making 80-year-old male presents to the ER chief complaint of mechanical fall just prior to arrival. Patient tripped on some steps and fell face forward onto some concrete. He does have a hematoma noted on the left frontal scalp, superficial abrasion noted to the bridge of his nose. Possible loss of consciousness for approximately 2 to 3 seconds per patient and family. This was an unwitnessed fall per his . Per the report he was down for approximately 30 minutes and awake physically unable to get up. He denies any chest pain no abdominal pain he does report some paraspinous lateral neck tenderness. He is currently on clopidogrel daily. He has a past medical history of coronary artery disease with stents placed, COPD, prostate cancer, hypertension and blindness in his right eye. FINDINGS: BRAIN: There are no skull fractures nor fluid in the visualized paranasal sinuses. There is no evidence of intracranial hemorrhage, mass effect, or shift of midline structures. There are no extra-axial fluid collections. The ventricles are not enlarged or shifted and there is no blood within the ventricular system nor within the basal cisterns. There is mild periventricular hypodensity consistent with chronic small vessel disease. No obvious acute territorial infarction. Some calcification is noted in the left vertebral artery at the skull base as well as within the intracavernous internal carotid arteries. CERVICAL SPINE: There is evidence of previous multilevel right-sided laminectomies at C3, C4, C5 and C6 levels with stabilization plates at these levels. No obvious hardware fracture. There is no evidence of acute fracture nor listhesis. No obvious epidural hemorrhage. There is no significant facet joint malalignment. No significant osseous lesions evident. Calcification is noted at multiple levels in the lower supraspinous ligament. These calcifications do not have acute appearance. IMPRESSION: No acute intracranial findings on this noninfused CT scan of the brain. No evidence of cervical spine fracture, malalignment, nor acute compromise of the cervical spinal canal. Multilevel hardware in the cervical spine appears intact, this related to multilevel right laminectomies. Report called to ER provider. 1157: Spoke with patient and family regarding CT result, verbalized understanding. Patient is remained alert and oriented hemodynamically stable throughout stay. At this time I do prefer to be discharged home. I did discuss strict return instructions including worsening headache, confusion, blurry vision, vomiting or any signs of worsening head injury. and patient verbalized understanding. Patient has remained hemodynamically stable alert and oriented throughout stay, no evidence for acute cardiac etiology second troponin canceled. This text was generated using zervedation system, please disregard any oddities of phrase or misspellings. HPI General Mode of arrival: wheelchair . Date/Time Provider Initiated Documentation: 01/24/21 09:34 . Limitations to Documentation: no limitations . Information obtained by: patient and family () . HPI Narrative: 80-year-old male presents to the ER chief complaint of mechanical fall just prior to arrival. Patient tripped on some steps and fell face forward onto some concrete. He does have a hematoma noted on the left frontal scalp, superficial abrasion noted to the bridge of his nose. Possible loss of consciousness for approximately 2 to 3 seconds per patient and family. This was an unwitnessed fall per his . Per the report he was down for approximately 30 minutes and awake physically unable to get up. He denies any chest pain no abdominal pain he does report some paraspinous lateral neck tenderness. He is currently on clopidogrel daily. He has a past medical history of coronary artery disease with stents placed, COPD, prostate cancer, hypertension and blindness in his right eye. Related Data Home Medications Medication Instructions Recorded Confirmed acetaminophen 650 mg PO Q6H PRN 10/03/17 01/24/21 atorvastatin [Lipitor] 40 mg PO HS 10/03/17 01/24/21 clopidogrel 75 mg PO DAILY 10/03/17 01/24/21 furosemide 10 mg PO DAILY 10/03/17 01/24/21 metoprolol tartrate [Lopressor] 50 mg PO BID 10/03/17 01/24/21 aspirin 81 mg PO DAILY 01/24/21 01/24/21 diphenhydramine-acetaminophen 1 tab PO QHS PRN 01/24/21 01/24/21 [Tylenol PM Extra Strength] nitroglycerin 4 mg SUBLINGUAL Q5-6M PRN 01/24/21 01/24/21 triamcinolone acetonide 1 applic TOPICAL BID PRN 01/24/21 01/24/21 Allergies Allergy/AdvReac Type Severity Reaction Status Date / Time No Known Allergies Allergy Unverified 01/24/21 09:38 General Stated Complaint: HeadInjury ОЛЬГА: 2 Review of Systems Narrative: Constitutional: Negative for weight loss, alert and oriented, well groomed, normal body habitus, appears comfortable. HEENT: Denies headaches, blurry vision, nasal discharge, sore throat, trouble swallowing. Closed head injury with possible LOC. Chest: Denies chest pain, palpitations, irregular rhythm, hypertension. Respiratory: Denies Shortness of breath, cough, hemoptysis. GI: Denies abdominal pain, nausea, vomiting, diarrhea, constipation. : Denies dysuria, hematuria, flank pain, rectal bleeding. Neuro: Denies dizziness, blurry vision, weakness, or facial numbness. Hematologic: Denies easy bruising, intolerance to heat or cold, hair loss. [facility] Surgical History Arthroplasty of knee Bilateral Coronary Artery Bypass Gaft (CABG) (~1994) x4 Lumbar Laminectomy (10/25/15) Neck (~2004) Prostatectomy (~1999) +Carcinoma Family History Mother Essential hypertension Congestive heart failure Father Diabetes Stroke Social History Smoking/Tobacco Use Status: Former Tobacco Use Smoking risk assessment performed?: Yes Alcohol Intake: current Alcohol Intake frequency: a few times a week Drug use: Never Substance use type: does not use Do you feel safe at home: Yes Do you feel safe in your relationship?: Yes Exam Narrative Exam Narrative: General: Well Developed, Awake and Alert, conversant. Skin: Warm and Dry HEENT: Head: Left frontal scalp hematoma, no palpable deformities, Normocephalic Eyes: Pupils PERRLA, EOM's intact. No periorbital eccymosis or step off Ears: Canal patent. Tympanic membranes are clear . No burgess's sign, no hemptympanum. Nose/Face: Superficial abrasion noted to the bridge of the nose, no epistaxis, facial bones nontender to palpation and stable with manipulation. Mouth/Throat: No intraoral trauma. Teeth and mandible are intact. Neck: No midline tenderness, no step off, no deformity to palpation of C-spine. Trachea midline. Chest: No surface trauma. Nontender without crepitus or deformity. Lungs clear to ausculatation bilaterally. Heart: RRR, no rubs, murmurs or gallop. Abdomen: No abrasions, ecchymosis, or surface trauma. Nondistended. Nontender to palpation no guarding, rebound, or rigidity. Pelvis: Nontender to palpation and stable to compression. Femoral pulses strong and equal Extremities no surface trauma. Sensation intact. Peripheral pulses intact and equal.h Neuro: ANO x4, GCS 15, cranial nerves II through XII intact. Motor and sensory exam nonfocal. Reflexes are symmetric. Course Vital Signs Vital signs: Vital Signs Temperature 36.3 C L 01/24/21 09:38 Pulse 60 01/24/21 09:38 Respiratory Rate 17 01/24/21 09:38 Blood Pressure 148/73 H 01/24/21 09:38 Pulse Oximetry 87 L 01/24/21 09:38 Temperature 36.3 C L 01/24/21 09:38 Temperature Source Temporal Artery Scan 01/24/21 09:38 Pulse 60 01/24/21 09:38 Respiratory Rate 17 01/24/21 09:38 Blood Pressure 148/73 H 01/24/21 09:38 Blood Pressure Position Supine 01/24/21 09:38 Pulse Oximetry 87 L 01/24/21 09:38 Oxygen Delivery Method Room Air 01/24/21 09:38 Oxygen Flow Rate 0 01/24/21 09:38 Pain Level 0 01/24/21 09:38
[2021-01-24 10:01] LABS: Abs Immature Grans 0.01 10^3/uL (0.0-0.06); Absolute Basophil Count 0.02 10^3/uL (0.0-0.2); Absolute Eosinophil Count 0.08 10^3/uL (0.0-0.7); Absolute Lymphocyte Count 0.94 10^3/uL (1.2-3.4); Absolute Monocyte Count 0.44 10^3/uL (0.1-0.8); Absolute Neutrophil Count 3.26 10^3/uL (1.2-6.7); Basophils % 0.4; Eosinophils % 1.7; HCT 36.8 % (40.0-50.0); Immature Grans % 0.2; Lymphocytes % 19.8; MCH 32.3 pg (27.0-33.0); MCHC 32.6 % (32.0-36.0); MCV 98.9 fL (80-95); MPV 8.6 fL (8.0-11.0); Monocytes % 9.3; Neutrophils % 68.6; Nucleated RBC 0 %; Platelet Count 159 10^3/uL (130-400); RBC 3.72 10^6/uL (4.36-5.78); RDW 13.2 % (11.8-14.1); RDW-SD 47.9 fL; WBC 4.75 10^3/uL (4.4-10.8)
[2021-01-24 10:12] LABS: Prothrombin Time 10.4 sec (9.3-11.0)
[2021-01-24 10:13] LABS: ALT 40 U/L (16-63); AST 26 U/L (15-37); Albumin 3.6 g/dL (3.4-5.0); Alkaline Phosphatase 104 U/L (46-116); Anion Gap 3.9 mmol/L (3-11); BUN 25 mg/dL (7-18); Bilirubin, Total 0.6 mg/dL (0.2-1.0); CO2 33.1 mmol/L (21.0-32.0); CREATININE 1.3 mg/dL (0.70-1.30); Calcium 8.7 mg/dL (8.5-10.1); Chloride 107 mmol/L (98-107); Estimated GFR 52.98 (mL/min/1.73m2); Glucose 90 mg/dL (74-106); Lipase 145 U/L (73-393); Potassium 4.6 mmol/L (3.5-5.1); Sodium 144 mmol/L (136-145); Total Protein 6.9 g/dL (6.4-8.2)
[2021-01-24 10:17] LABS: Bilirubin Negative (Negative); Blood Negative (Negative); Clarity Clear (Clear); Glucose Negative (Negative); Ketones Negative (Negative); Leukocyte Esterase Negative (Negative); Nitrite Negative (Negative); Specific Gravity 1.025 (1.005-1.025); Urobilinogen 0.2 EU/dL (Up TO 0.2)
[2021-01-24 10:30] LABS: Troponin I < 0.05 ng/mL (<0.06)
== END 2021-01-24 12:12 | disposition home or self-care (01) ==
PROVIDERS: Emergency Provider Registered Nurse Emergency; PCP Family Medicine
DX: S09.8XXA Other specified injuries of head, initial encounter (principal); W10.8XXA Fall (on) (from) other stairs and steps, initial encounter
CPT/HCPCS: 36415; 80053; 83690; 93005; 99284; 81003; 84484; 85025; 85610; 93010; 99283

== ENCOUNTER 2021-01-29 13:00 | Outpatient (RCR) | payer MEDICARE, BC, SELFPAY | END 2021-02-07 23:59 | disposition home or self-care (01) | LOC: CR 13:00 | PROVIDERS: PCP Family Medicine; Visit Provider Family Medicine | DX: Z51.89 Encounter for other specified aftercare (principal); I25.10 Atherosclerotic heart disease of native coronary artery without angina pectoris; Z95.5 Presence of coronary angioplasty implant and graft; Z95.2 Presence of prosthetic heart valve | CPT/HCPCS: S9472 ==

== ENCOUNTER 2021-05-28 14:23 | Outpatient (REF) | payer MEDICARE, BC, SELFPAY ==
[2021-05-28 15:34] LABS: HCT 36.8 % (40.0-50.0); MCH 32.2 pg (27.0-33.0); MCHC 32.6 % (32.0-36.0); MCV 98.7 fL (80-95); MPV 9.1 fL (8.0-11.0); Platelet Count 128 10^3/uL (130-400); RBC 3.73 10^6/uL (4.36-5.78); RDW 13.2 % (11.8-14.1); RDW-SD 47.5 fL; WBC 4.96 10^3/uL (4.4-10.8)
[2021-05-28 16:08] LABS: Anion Gap 5.5 mmol/L (3-11); BUN 21 mg/dL (7-18); CO2 32.5 mmol/L (21.0-32.0); CREATININE 1.2 mg/dL (0.70-1.30); Calcium 8.4 mg/dL (8.5-10.1); Chloride 105 mmol/L (98-107); Estimated GFR 58.11 (mL/min/1.73m2); Glucose 123 mg/dL (74-106); Magnesium 2.1 mg/dL (1.8-2.4); NT-proBNP 653 pg/mL (<300); Potassium 4.8 mmol/L (3.5-5.1); Sodium 143 mmol/L (136-145)
== END 2021-05-28 14:24 | disposition home or self-care (01) ==
LOC: NCHCN 14:23
PROVIDERS: PCP Family Medicine; Visit Provider Family Medicine
DX: N18.31 Chronic kidney disease, stage 3a (principal); I25.810 Atherosclerosis of coronary artery bypass graft(s) without angina pectoris; R06.02 Shortness of breath
CPT/HCPCS: 80048; 85027; 83735; 83880

== ENCOUNTER 2021-09-17 15:46 | Outpatient (REF) | payer MEDICARE, BC, SELFPAY ==
[2021-09-17 17:29] LABS: HCT 40.5 % (40.0-50.0); HGB 12.8 g/dL (13.5-17.5); MCH 31.6 pg (27.0-33.0); MCHC 31.6 % (32.0-36.0); MPV 9.2 fL (8.0-11.0); Platelet Count 142 10^3/uL (130-400); RBC 4.05 10^6/uL (4.36-5.78); RDW 13.2 % (11.8-14.1); RDW-SD 48.9 fL; WBC 5.81 10^3/uL (4.4-10.8)
[2021-09-17 17:50] LABS: Iron 92 ug/dL (65-175); Total Iron Binding Capacity 283 ug/dL (250-450); Transferrin Sat 33 % (20-55)
[2021-09-17 18:18] LABS: ALT 33 U/L (16-63); AST 21 U/L (15-37); Albumin 3.8 g/dL (3.4-5.0); Alkaline Phosphatase 102 U/L (46-116); Anion Gap 5.6 mmol/L (3-11); BUN 30 mg/dL (7-18); Bilirubin, Total 0.5 mg/dL (0.2-1.0); CO2 33.4 mmol/L (21.0-32.0); CREATININE 1.4 mg/dL (0.70-1.30); Calcium 8.8 mg/dL (8.5-10.1); Chloride 102 mmol/L (98-107); Estimated GFR 48.64 (mL/min/1.73m2); Glucose 95 mg/dL (74-106); Sodium 141 mmol/L (136-145); Total Protein 6.5 g/dL (6.4-8.2); Vitamin B12 579 pg/mL (193-986)
[2021-09-18 18:53] LABS: PSA, Diagnostic 1.3 ng/mL (0.0-6.5)
== END 2021-09-17 15:47 | disposition home or self-care (01) ==
LOC: NCHCN 15:46
PROVIDERS: PCP Family Medicine; Visit Provider Family Medicine
DX: D64.9 Anemia, unspecified (principal); R41.3 Other amnesia; D69.6 Thrombocytopenia, unspecified; C79.82 Secondary malignant neoplasm of genital organs; N18.31 Chronic kidney disease, stage 3a; I25.10 Atherosclerotic heart disease of native coronary artery without angina pectoris
CPT/HCPCS: 80053; 85027; 82607; 83540; 83550; 84153; 84443

== ENCOUNTER 2021-10-17 00:52 | Outpatient (CLI) | payer MEDICARE, BC, SELFPAY ==
--- NOTE | 2021-10-17 13:00 | DI.US_ITS ---
Exam(s) US RENAL EXAM: US RENAL CLINICAL HISTORY: RENAL MASS, N28.89, SEEN ON 12/2020 CT, FOLLOWED WITH US IN [place] TECHNIQUE: Ultrasound performed using standard protocol. COMPARISON: No exams were available for comparison FINDINGS: Renal ultrasound was performed to follow a left lower pole renal mass which was 1st identified on [address] of December 29, 2020. This was measured about 2.2 cm in diameter on that CT examination. On today's exam ination, the mass is again visible as a rim calcified posterior acoustic shadowing mass. Measurement s are 23 x 17 x 20 millimeters, no new mass identified. Large left upper pole renal cyst again noted as well as a couple of smaller simple cysts of the right kidney. No hydronephrosis. Urinary bladder grossly unremarkable with volume 61 cc, patient was unable to voi d. Ureteral jets were nonvisualized. IMPRESSION: Grossly stable left lower pole renal mass. I would suggest that a follow-up CT be obtained approxima tely 12 months following the initial [address] examination for the most accurate assessment of potential matt wth. DATA REPOSITORY:
--- NOTE | 2021-10-17 13:09 | DI.US_ITS ---
APPROVED REPORT EXAM: Comprehensive 2D, Doppler, and color-flow Echocardiogram Patient Location: Out-Patient Development Engineer: Shirlene Oscar RDCS (AE) Indications: MINOR, CAD, s/p CABG, h/o AVR, h/o Catheterization Other Information Study Quality: Adequate Conclusion Normal left ventricular chamber size. Borderline concentric left ventricular hypertrophy. Estimated ejection fraction is 60%. Wall motion is normal Normal right ventricular size and systolic function Device lead noted in the right heart Both atria are normal in size There is a bioprosthetic aortic valve with a mean gradient of 10 mmHg. There is no aortic regurgitat ion Moderate mitral annular calcification. Mild mitral regurgitation Normal tricuspid valve with mild regurgitation. Estimated right ventricular systolic pressure is 34 mmHg Wall motion Left Ventricle The left ventricle is normal size. The left ventricular systolic function is normal. The left ventric ular ejection fraction is within the normal range. Borderline concentric left ventricular hypertrophy . There is normal LV segmental wall motion. There is no ventricular septal defect visualized. LVEF is 60%. Right Ventricle The right ventricle is normal size. The right ventricular systolic function is normal. The RVSP is 33 .9 mmHg. Pacemaker lead is present in the right ventricle. Atria The left atrium size is normal. The right atrium size is normal. The interatrial septum is intact wit h no evidence for an atrial septal defect. Aortic Valve No hemodynamically significant valvular aortic stenosis. No aortic regurgitation is present. Bioprost hetic aortic valve is present. Mitral Valve Moderate mitral annular calcification. No evidence of mitral valve stenosis. Mild mitral regurgitatio n. Tricuspid Valve The tricuspid valve is normal in structure. There is no tricuspid valve stenosis. Mild tricuspid regu rgitation. Pulmonic Valve The pulmonary valve is normal in structure. There is no pulmonic valvular stenosis. Mild pulmonic reg urgitation. Great Vessels The aortic root is normal in size. The ascending aorta is normal in size. The IVC collapses <50% with inspiration. Pericardium There is no pericardial effusion. 2D Dimensions IVSD d PLAX 1.25 cm M: 0.6-1.2 LV Vol A2C d MOD 94.8 mL LVPW d PLAX 1.24 cm M: 0.6 - 1.2 LV Vol A4C d MOD 89.5 mL LVID d PLAX 4.82 cm M: 4.2 - 5.8 LA vol/ BSA A2C s A-L 20.2 mL/m2 LVDs 3.25 cm M: 2.5 - 4.0 LA vol/ BSA A4C s A-L 33.0 mL/m2 Ao Root d 2.41 cm M: 3.1 - 3.7 LA Vol/ BSA Biplane s A-L 27.3 mL/m2 RA Area A4C 13.20 cm2 LA Area A4C s MOD 21.63 cm2 RA Vol/ BSA A4C s A-L 16.7 mL/m2 LA Area A2C s MOD 16.03 cm2 Ao Asc Diam d 3.47 cm M: 2.6 - 3.4 LV EF A4C MOD 60.0 % LV EF Teichholz 59.6 % LV EF A2C MOD 60.9 % LVEF (Holder's) 60.73 % M: 52 - 72 LV EF Biplane MOD 60.7 % LV Volume 69.83 mL M: 62 - 150 SV 56.95 mL LV Volume Index 34.23 mL/m2 M: 34 - 74 SV Index 27.86 mL/m2 LV Vol Biplane MOD 93.8 mL FS 31.65 % M-Mode TAPSE 1.72 cm (M/F) >1.7 LV Diastology MV E' medial 0.036 (>0.07 m/s) E/A Ratio 0.9 LV E/e MED 25.90 (<14) MV E Vmax 0.93 (0.4-1.3 m/s) MV E' lateral 0.065 (>0.1 m/s) MV A Vmax 1.05 (0.4-1.3 m/s) LV E/e LAT 14.25 (<14) MV E/A Ratio 0.88 MV E/E' medial 25.91 MV E/E' lateral 14.25 Aortic Valve LVOT Area 2.98 cm2 AoV Area Vmax 1.53 cm2 LVOT Vmax 1.02 m/s AoV Area/ BSA (Vmax) 0.75 cm2/m2 LVOT Mean Nj. 0.70 m/s MO Mean Nj. 1.37 cm2 LVOT Peak Grad 4.2 mmHg MO Mean Nj. Index 0.67 cm2/m2 LVOT Mean Grad 2.3 mmHg LVOT VTI 0.210 m LVOT Diam s 1.90 cm AoV Vmax 1.99 m/s Velocity Ratio 0.51 AoV Mean Nj. 1.53 m/s AoV Peak Grad 15.9 mmHg LVOT SV 62.64 mL AoV Mean Grad 10.2 mmHg AoV VTI 0.459 m AoV Area VTI 1.37 cm2 AoV Area/ BSA (VTI) 0.67 cm/m2 Mitral Valve MV DT 157 (160-240 msec) MV PHT 45 msec MV Area PHT 4.84 cm2 MV VTI 0.321 m MV Area VTI 1.95 (4.0-6.0 cm2) Pulmonary Valve PV Vmax 0.90 (0.5-1.5 m/s) RVOT Peak Gr. 1.76 mmHg PV Peak Grad 3.2 mmHg RVOT Mean Gr. 0.85 mmHg PV Mean Grad 1.6 mmHg RVOT VTI 0.148 m PV VTI 0.220 m RVOT Vmax 0.66 m/s Tricuspid Valve TR Peak Grad 25.8 mmHg TR Vmax 2.54 m/s RA Pressure 8.00 mmHg RVSP (TR) 33.9 mmHg
== END 2021-10-17 01:12 ==
PROVIDERS: PCP Family Medicine; Visit Provider Family Medicine
DX: I25.810 Atherosclerosis of coronary artery bypass graft(s) without angina pectoris (principal); R06.09 Other forms of dyspnea
CPT/HCPCS: 76770; 93306

== ENCOUNTER 2022-05-21 03:06 | Outpatient (CLI) | payer MEDICARE, BC, SELFPAY ==
[2022-05-21] MEDS: Albuterol HFA 18 GM 200 PUFF INH IH (14:16)
[2022-05-21] MEDS: Inhaler, Assist Device 1 EACH MC (14:17)
--- NOTE | 2022-05-22 16:25 | W.PFT ---
Date of service: 05/21/22 Time of Service: 10:43 Pulmonary Function Test Result Requesting Provider Ga Indications: MINOR Interpretation Spirometry: There is severe airflow limitation. The FVC is low. There is no significant bronchodilator response. Lung Volumes: There is moderate restrictive lung disease Diffusion Capacity: There is a reduced diffusion Impression Severe airflow limitation and moderate restrictive lung disease. Note: When compared to 09/23/19, the FEV1 and FVC are stable. Clinical Correlation therefore is recommended.
--- NOTE | 2022-05-22 16:29 | W.PFT ---
Date of service: 05/21/22 Time of Service: 13:01 Pulmonary Function Test Result Requesting Provider Ga Indications: Respiratory failure Note: 6 Minute Walk Test Distance walked: 400 feet Desaturations: 95 to 86%, 2LPM required to maintained O2>88% Heart rate changes:86bpm to 110 during exercise Recommendation:2LPM supplemental oxygen with exertion Oumou Koroma MD Pulmonary & Critical Care Medicine Clinical Correlation therefore is recommended.
--- NOTE | 2022-06-03 08:31 | W.PFT ---
Date of service: 05/21/22 Time of Service: 19:39 Pulmonary Function Test Result Indications: Nocturnal hypoxia Note: Overnight Oximetry Amount of time analyzed: 9 hours, 16 minutes, performed on 2LPM Number of minutes under 88%: 0.7 min LORNA: 1.1 Appearance of oxygen saturation pattern: Normal appearing pattern with some mild sharp decreases that may be indicative of obstructions. Recommendation: Continue 2LPM while sleeping Oumou Koroma MD Pulmonary & Critical Care Medicine Clinical Correlation therefore is recommended.
== END 2022-05-21 03:07 | disposition home or self-care (01) ==
LOC: RT 03:06
PROVIDERS: PCP Family Medicine; Visit Provider Student in an Organized Health Care Education/Training Program
DX: R94.2 Abnormal results of pulmonary function studies (principal); R06.09 Other forms of dyspnea; J44.9 Chronic obstructive pulmonary disease, unspecified; R06.2 Wheezing
CPT/HCPCS: 94060; 94618; 94726; 94729; 94762

== ENCOUNTER → 2022-07-12 01:20 | Outpatient (CLI) | payer MEDICARE, BC, SELFPAY ==
--- NOTE | 2022-07-12 07:15 | DI.CT_ITS ---
Exam(s) CT CHEST HIGH RESOLUTION EXAM: CT CHEST HIGH RESOLUTION CLINICAL HISTORY: restriction, pleural thickening on prior CT,restrictive lung disease,j98.4. TECHNIQUE: Imaging protocol: Cysts routine axial computed tomography images were obtained and parrish l and sagittal reformatted images were created and reviewed. Additional 1 millimeter high-resolution axial images were obtained at 10 millimeter intervals in insp iration and expiration. COMPARISON: CT CT CHEST PE ABD PELVIS W from 12/29/2020 FINDINGS: Tracheobronchial tree: Patent where visualized. Mediastinum and Katya: No dominant adenopathy or fluid collection. Pulmonary parenchyma: No consolidation or dominant measurable mass. Stable appearance of scarring in the left lower lobe. Lung volumes appear low. Some air trapping is seen on expiratory images. No visible emphysematous changes. Pleura: No effusion or pneumothorax. Prominent calcified pleural plaques. Greatest bilateral lung b ases. Pleural thickening left lung base. Heart: The heart is not dilated. coronary artery calcifications and stents are seen. Aortic valve pr osthesis. Aorta: Thoracic aorta non-dilated. Upper abdomen: Unremarkable. Bones:Sternal wires. Degenerative changes with flowing osteophytes in the thoracic spine. Tubes, Catheters, and Lines: Pacemaker. IMPRESSION: Stable appearance of bilateral pleural plaques and pleural thickening at the left lung base. Stable appearance of bilateral scarring and low lung volumes. RADIATION DOSE DELIVERED: 782.75mGy.cm Total DLP DATA REPOSITORY: All CT scans at this facility are submitted to the National Radiology Data Registry (NRDR) Dose Index Registry (DIR) with the [employer] (ACR). RADIATION OPTIMIZATION: All CT scans at this facility use at least one of these dose optimization te chniques: automated exposure control; mA and/or kV adjustment per patient size (includes targeted exa ms where dose is matched to clinical indication); or iterative reconstruction.
== END ==
PROVIDERS: PCP Family Medicine; Visit Provider Student in an Organized Health Care Education/Training Program
DX: J98.4 Other disorders of lung (principal)
CPT/HCPCS: 71250

== ENCOUNTER 2022-08-26 11:57 | Outpatient (REF) | payer MEDICARE, BC, SELFPAY ==
[2022-08-26 19:05] LABS: Abs Immature Grans 0.02 10^3/uL (0.0-0.06); Absolute Basophil Count 0.03 10^3/uL (0.0-0.2); Absolute Monocyte Count 0.73 10^3/uL (0.1-0.8); Absolute Neutrophil Count 6.46 10^3/uL (1.2-6.7); Basophils % 0.3; Eosinophils % 1.2; HCT 43.6 % (40.0-50.0); HGB 13.9 g/dL (13.5-17.5); Immature Grans % 0.2; MCH 31.6 pg (27.0-33.0); MCHC 31.9 % (32.0-36.0); MCV 99 fL (80-95); MPV 9.6 fL (8.0-11.0); Monocytes % 8.4; Neutrophils % 74.9; Platelet Count 162 10^3/uL (130-400); RDW 13.2 % (11.8-14.1); RDW-SD 48.3 fL; WBC 8.64 10^3/uL (4.4-10.8)
[2022-08-26 19:07] LABS: ESR 17 mm/hr (0-20)
[2022-08-26 19:25] LABS: ALT 43 U/L (16-63); AST 32 U/L (15-37); Albumin 4.1 g/dL (3.4-5.0); Alkaline Phosphatase 128 U/L (46-116); Anion Gap 7.4 mmol/L (3-11); BUN 31 mg/dL (7-18); Bilirubin, Total 0.4 mg/dL (0.2-1.0); CO2 30.6 mmol/L (21.0-32.0); CREATININE 1.2 mg/dL (0.70-1.30); Chloride 103 mmol/L (98-107); Estimated GFR 60.38 (mL/min/1.73m2); Glucose 91 mg/dL (74-106); Potassium 5.1 mmol/L (3.5-5.1); Sodium 141 mmol/L (136-145); Total Protein 7.1 g/dL (6.4-8.2)
[2022-08-27 19:14] LABS: Estimated Average Glucose 114 mg/dL; Hemoglobin A1C 5.6 % (<5.7)
[2022-08-28 13:36] LABS: Albumin 57.3 % (55.8-66.1); Total Protein 6.9 g/dL (6.3-8.2)
== END 2022-08-26 11:58 | disposition home or self-care (01) ==
LOC: NCHCN 11:57
PROVIDERS: PCP Family Medicine; Visit Provider Family Medicine
DX: D64.9 Anemia, unspecified (principal); R73.03 Prediabetes; G62.9 Polyneuropathy, unspecified; N18.31 Chronic kidney disease, stage 3a
CPT/HCPCS: 80053; 85652; 83036; 84165; 85025

== ENCOUNTER → 2022-09-03 13:40 | Outpatient (BNVA) | payer MEDICARE, BC, SELFPAY | PROVIDERS: PCP Family Medicine; Referring Provider Family Medicine; Visit Provider Psychiatry & Neurology Neurology | DX: J44.9 Chronic obstructive pulmonary disease, unspecified (principal); Z99.81 Dependence on supplemental oxygen; G62.9 Polyneuropathy, unspecified; M48.061 Spinal stenosis, lumbar region without neurogenic claudication | CPT/HCPCS: 99214 ==

== ENCOUNTER → 2022-11-05 13:01 | Outpatient (BNVA) | payer MEDICARE, BC, SELFPAY | PROVIDERS: PCP Family Medicine; Referring Provider Family Medicine; Visit Provider Psychiatry & Neurology Neurology | DX: G62.9 Polyneuropathy, unspecified (principal); M48.061 Spinal stenosis, lumbar region without neurogenic claudication | CPT/HCPCS: 99214 ==

== ENCOUNTER 2023-05-20 18:44 | Outpatient (REF) | payer MEDICARE, BC, SELFPAY ==
[2023-05-20 18:55] LABS: HGB 13.5 g/dL (13.5-17.5); MCH 32.9 pg (27.0-33.0); MCHC 32.9 % (32.0-36.0); MCV 100 fL (80-95); MPV 9.3 fL (8.0-11.0); Platelet Count 140 10^3/uL (130-400); RDW 13.4 % (11.8-14.1); RDW-SD 50.2 fL; WBC 6.32 10^3/uL (4.4-10.8)
[2023-05-20 19:07] LABS: Anion Gap 8.4 mmol/L (3-11); BUN 29 mg/dL (7-18); CO2 29.6 mmol/L (21.0-32.0); CREATININE 1.2 mg/dL (0.70-1.30); Calculated LDL 74 mg/dL (<100); Chloride 103 mmol/L (98-107); Cholesterol 155 mg/dL (<200); Glucose 146 mg/dL (74-106); HDL Cholesterol 54 mg/dL (40-60); Potassium 4.6 mmol/L (3.5-5.1); Sodium 141 mmol/L (136-145); Triglyceride 136 mg/dL (<150)
[2023-05-20 19:24] LABS: Hemoglobin A1C 5.9 % (<5.7)
[2023-05-21 19:23] LABS: PSA, Screening 1.8 ng/mL (<=6.5)
== END 2023-05-20 18:45 | disposition home or self-care (01) ==
LOC: NCHCN 18:44
PROVIDERS: PCP Family Medicine; Visit Provider Family Medicine
DX: I25.810 Atherosclerosis of coronary artery bypass graft(s) without angina pectoris (principal); R73.03 Prediabetes; N28.89 Other specified disorders of kidney and ureter; N18.31 Chronic kidney disease, stage 3a; D64.9 Anemia, unspecified; C61 Malignant neoplasm of prostate
CPT/HCPCS: 80048; 80061; 84153; 85027; 83036

== ENCOUNTER → 2023-06-23 00:16 | Outpatient (CLI) | payer MEDICARE, BC, SELFPAY ==
--- NOTE | 2023-06-23 | DI.CT_ITS ---
Exam(s) CT ABDOMEN WO/W EXAM: CT ABDOMEN WO/W CLINICAL HISTORY: RENAL MASS, N28.89. TECHNIQUE: Imaging Protocol: Axial computed tomography images with coronal and sagittal reformatted images were created and reviewed CONTRAST MATERIAL: Intravenous: Omnipaque 350 Contrast volume:100 ml Oral: None COMPARISON: CT CT CHEST PE ABD PELVIS W from 12/29/2020 FINDINGS: ABDOMEN: VISUALIZED LUNG BASES: Sessile calcified pleural plaques again noted bilaterally over both lower lobe s. Tiny loculated left pleural effusion again noted. Some scarring in the posterior basal segment o f the left lower lobe is unchanged from 12/29/2020. Aortic valve TAVR again noted. Pacemaker wires. Mild cardiomegaly. No pericardial effusion. There is no ascites. Interposition of colon between the liver and right hemidiaphragm again noted. LIVER: There are no new focal hepatic lesions nor dilatation of intrahepatic ducts. GALLBLADDER/BILIARY: No obvious gallbladder pathology. CBD is not dilated. PANCREAS: No evidence of pancreatic mass nor dilatation of the pancreatic duct. There are few pancre atic calcifications again noted. SPLEEN: Spleen is not enlarged. There are no intrasplenic lesions. Splenic and portal veins are killian nt. ADRENALS: Adrenal gland unremarkable. There is a small nodule at the junction of the genu and medial limb of the right adrenal gland which measures 1.2 x 1.0 cm. Probable adenoma KIDNEYS: There is a 6 x 5.5 cm benign cyst in the superior pole of the left kidney. Another smaller 1 cm cyst is seen in the medial cortex just below this. With respect to the previously described per ipherally calcified nodule in the inferior pole the left kidney, this appears unchanged from CT scan of December 2020. There is again noted be peripherally calcified and presently measures 2.1 x 1.5 by 2.8 cm, exhibiting very little if any significant growth when compared to 12/29/2020. The opposite-right kidney exhibits benign cysts as well as a unchanged prominent upper pole region ca lcification. No new solid lesions in the right kidney. Both renal veins are patent with no evidence of intraluminal tumor thrombus ABDOMINAL AORTA: Infrarenal abdominal aortic aneurysm noted. Maximum diameter 4 cm., exhibiting mini mal increase in size from 12/29 20. LYMPH NODES: There is no retroperitoneal nor paraaortic adenopathy. ABDOMINAL WALL: No evidence of significant anterior abdominal wall nor inguinal hernia. GI: There is no evidence of bowel obstruction. OSSEOUS: Fusion hardware in the lumbar spine noted. No significant osseous lesions. No fractures ev ident. Please note that the pelvis was not scanned IMPRESSION: 1. The previously described peripherally calcified lesion in the inferior pole the left kidney exhibi ts minimal if any significant change when compared to the prior CT scan of December 2020. Measurements in all 3 planes are similar to previous. Most probably benign. It is again noted to be peripherally c alcified. 2. Other benign unchanged cysts and calcifications in the kidneys as described above. 3. There are no new solid renal masses. 4. Small right adrenal nodule again noted which is probably an incidental adenoma. 5. abdominal aortic aneurysm again noted. Measurements as above. RADIATION DOSE DELIVERED: Total DLP DATA REPOSITORY: All CT scans at this facility are submitted to the National Radiology Data Registry (NRDR) Dose Index Registry (DIR) with the [employer] (ACR). RADIATION OPTIMIZATION: All CT scans at this facility use at least one of these dose optimization te chniques: automated exposure control; mA and/or kV adjustment per patient size (includes targeted exa ms where dose is matched to clinical indication); or iterative reconstruction.
[2023-06-23] MEDS: Normal Saline - Diluent 50 ML VIAL IJ (13:36)
[2023-06-23] MEDS: Omnipaque 350 MG/ML 100 ML BTL IJ (13:37)
[2023-06-23] MEDS: Normal Saline Flush 10 ML SYR IVP (13:38)
== END ==
PROVIDERS: PCP Family Medicine; Visit Provider Family Medicine
DX: N28.89 Other specified disorders of kidney and ureter (principal)
CPT/HCPCS: 74170; J3490

== ENCOUNTER → 2023-08-20 11:10 | Outpatient (BNVA) | payer MEDICARE, BC, SELFPAY | PROVIDERS: PCP Family Medicine; Referring Provider Family Medicine; Visit Provider Physician Assistant Surgical | DX: J44.9 Chronic obstructive pulmonary disease, unspecified (principal); J98.4 Other disorders of lung; G47.34 Idiopathic sleep related nonobstructive alveolar hypoventilation; J92.0 Pleural plaque with presence of asbestos; Z87.891 Personal history of nicotine dependence | CPT/HCPCS: 99214 ==

== ENCOUNTER → 2023-12-11 13:56 | Outpatient (BNVA) | payer MEDICARE, BC, SELFPAY | PROVIDERS: PCP Family Medicine; Referring Provider Family Medicine; Visit Provider Student in an Organized Health Care Education/Training Program | DX: J44.9 Chronic obstructive pulmonary disease, unspecified (principal); G47.34 Idiopathic sleep related nonobstructive alveolar hypoventilation; J92.0 Pleural plaque with presence of asbestos; Z87.891 Personal history of nicotine dependence | CPT/HCPCS: 94618; 99214 ==

== ENCOUNTER 2024-06-16 15:28 | Outpatient (REF) | payer MEDICARE, BC, SELFPAY ==
--- OUTSIDE RECORDS SUMMARY | 2024-06-16 15:30 | XMS_ITS | Encounter Summary ---
[place] [address] Care Team Providers Care Environmental Aide Name Role Phone Jaylan Quintero MD Primary Care Provider [phone] Encounter Details Date Type Department Care Team (Latest Contact Info) Description 12/05/2023 10:00 AM EDT - 12/05/2023 11:59 PM EDT Hospital Encounter [place] [phone] Discharge Disposition: Home Social History Tobacco Use Types Packs/Day Years Used Date Smoking Tobacco: Former Cigarettes 1 1 955 - 8544 Smokeless Tobacco: Never Alcohol Use Standard Drinks/Week Comments Yes 1 (1 standard drink = 0.6 oz pur e alcohol) 1-2 drinks per week Sex and Gender Information Value Date Recorded Sex Assigned at Not on file Gender Identity Not on file Sexual Orientation Not on file documented as of this encounter Medications at Time of Discharge Medication Sig Dispensed Refills Start Date End Date gabapentin (Neurontin) 100 mg Capsule TAKE ONE CAPSULE BY MOUTH THREE TIMES A DAY NEEDED FOR NERVE PAIN 08/27/2022 amoxicillin (Amoxil) 500 mg Capsule TAKE FOUR CAPSULES BY MOUTH 1 HOUR PRIOR TO DENTAL PROCEDURE 05/30/2022 albuteroL 90 mcg/actuation HFA Aerosol Inhaler INHALE TWO PUFFS BY MOUTH EVERY 6 HOURS NEEDED FOR FOR SHORTNESS OF BREATH OR WHEEZING 08/31/2022 triamcinolone (KENALOG) 0.1 % Ointment Use 2 times daily to lower extremities for 1 week, take a week off, repeat cycle if needed. 454 g 01/10/2021 furosemide (Lasix) 20 mg Tablet Take 0.5 tablets by mouth daily. 80 tablet 3 01/10/2021 atorvastatin (Lipitor) 40 mg Tablet Take 1 tablet by mouth every evening. 90 tablet 3 11/17/2020 clopidogreL (Plavix) 75 mg Tablet Take 1 tablet by mouth daily. 90 tablet 3 11/17/2020 aspirin 81 mg Tablet, Chewable Take 81 mg by mouth daily. 90 tablet 3 11/17/2020 diphenhydrAMINE-acetam inophen (TYLENOL PM) 25-500 mg Tablet Take by mouth daily as needed (Bedtime). nitroGLYcerin (Nitrostat) 0.4 mg Tablet, Sublingual Place 1 tablet under the tongue every 5 minutes as needed for Chest pain. 25 tablet 12 05/12/2020 documented as of this encounter Plan of Treatment Upcoming Encounters Date Type Department Care Team (Late st Contact Info) Description 08/31/2024 10:00 AM EST Hospital Encounter [place] [address] Arrived documented as of this encounter Procedures Procedure Name Priority Date/Time Associated Diagnosis Comments PRO PM INTERROGATION REMOTE UP TO 90 DAYS Routine 10/09/2023 6:21 AM EST documented in this encounter Results * Cardiac Device Check - Remote (10/09/2023 6:21 AM EST) Anatomical Region Laterality Modality Other 10/09/2023 6:21 AM EST Gabriel Sinha MD IMPLANTABLE CARDIAC DEVICE documented in this encounter Visit Diagnoses Not on filedocumented in this encounter Care Teams Environmental Aide Relationship Specialty Start Date End Date Jaylan Quintero MD PCP - General Family Medicine 12/11/21 documented as of this encounter
--- OUTSIDE RECORDS SUMMARY | 2024-06-16 15:30 | XMS_ITS | Clinical Summary ---
Author Organization [facility] Address [address] [facility] [place] [address] Care Team Providers Care Director Adult Name Role Phone Jaylan Quintero MD Primary Care Provider Allergies No known active allergies Medications Medication Sig Dispensed Refills Start Date End Date Status nitroGLYcerin (Nitrostat) 0.4 mg Tablet, Sublingual Place 1 tablet under the tongue every 5 minutes as needed for Chest pain. 25 tablet 12 05/12/2020 Active diphenhydrAMINE-marine taminophen (TYLENOL PM) 25-500 mg Tablet Take by mouth daily as needed (Bedtime). Active atorvastatin (Lipitor) 40 mg Tablet Take 1 tablet by mouth every evening. 90 tablet 3 11/17/2020 Active clopidogreL (Plavix) 75 mg Tablet Take 1 tablet by mouth daily. 90 tablet 3 11/17/2020 Active aspirin 81 mg Tablet, Chewable Take 81 mg by mouth daily. 90 tablet 3 11/17/2020 Active triamcinolone (KENALOG) 0.1 % Ointment Use 2 times daily to lower extremities for 1 week, take a week off, repeat cycle if needed. 454 g 01/10/2021 Active furosemide (Lasix) 20 mg Tablet Take 0.5 tablets by mouth daily. 80 tablet 3 01/10/2021 Active gabapentin (Neurontin) 100 mg Capsule TAKE ONE CAPSULE BY MOUTH THREE TIMES A DAY NEEDED FOR NERVE PAIN 08/27/2022 Active amoxicillin (Amoxil) 500 mg Capsule TAKE FOUR CAPSULES BY MOUTH 1 HOUR PRIOR TO DENTAL PROCEDURE 05/30/2022 Active albuteroL 90 mcg/actuation HFA Aerosol Inhaler INHALE TWO PUFFS BY MOUTH EVERY 6 HOURS NEEDED FOR FOR SHORTNESS OF BREATH OR WHEEZING 08/31/2022 Active Active Problems Problem Noted Date Diagnosed Date CAD (coronary artery disease) of bypass graft Substernal chest pain 11/09/2020 Overview (11/09/2020): Added automatically from request for surgery [id number] 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 06/03/2017 Overview (09/06/2018): ?? 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. Received [employer] Accolade MRI pacemaker. ?? Aug 2018: RhythmIQ turned off and PAV and FELICITY extended to reduce ventricular pacing in context of dyspnea. Vitamin D deficiency 06/03/2017 Hyperlipidemia 05/19/2017 Assessment & Plan (01/15/2018 5:11 PM EDT): Continues on current statin dose, no changes. Should have lipids checked at next visit. Assessment & Plan (06/26/2017 4:45 PM EST): Continues on current statin dose, no changes Aortic valve disease--- TAVR December 2016 05/18/2017 Overview (06/26/2017): December 2016: Evolut 29 at [facility] 05/19/17 echo: no prosthetic aortic valve regurg Coronary arteriosclerosis 05/18/2017 Overview (06/26/2017): 1995: 4v CABG 2014: PCI of SVG 05/19/17: [facility] with PCI to mid SVG--RPDA Assessment & Plan (01/15/2018 5:09 PM EDT): He has had no chest pain or jaw pain. No use of nitro since his discharge. He continues on aspirin, plavix, metoprolol, lisinopril, and atorvstatin. He should remain on DAPT therapy for 12 months (till 05/2018). He continues to struggle with exertional shortness of breath, though this has improved and his activity tolerance is slightly better. He continues to follow pulmonary for his advanced lung disease. Will plan to have him return for follow up in 4 months. Assessment & Plan (06/26/2017 4:45 PM EST): He has had no chest pain or jaw pain. No use of nitro since his discharge. He continues on aspirin, plavix, metoprolol, lisinopril, and atorvstatin. He was not deemed a candidate for cardiac rehab, but has tried to do some activity such as short distance walking on his own. He continues to struggle with exertional shortness of breath, though this seems most consistent with his advancing COPD. Primary care and pulmonology to further manage. He was last seen by his scrubber operator in [place], [place] prior to TAVR. Should consider establishing him with someone in the [facility] system. F/u in 3 months. Chronic obstructive pulmonary disease 05/18/2017 Prostate cancer--- treated with radical prostate ctomy 05/18/2017 Resolved Problems Problem Noted Date Diagnosed Date Resolved Date Epidermoid cyst of skin 06/03/201708/12 Encounters Date Type Department Care Team Description 06/02/2024 10:00 AM EDT - 06/02/2024 11:59 PM EDT Hospital Encounter [place] [address] Discharge Disposition: Home from Last 3 Months Immunizations Name Administration Dates Next Due Influenza (Fluzone HD) Triva lent High Dose 07/01/2019,05/20/2017,06/10/2016,05/17 Influenza Adjuvanted (FluAd) Trivalent, PF 65yrs+ 07/01/2019 Influenza Quadrivalent (FluA d) Adjuvanted 06/19/2020 Influenza Unspecified Formulation 05/11/2014,08/2012 Pneumococcal 13-Valent Conju gate (Prevnar 13) 09/13/2015 Pneumococcal 23-Valent Polys accharide (Pneumovax 23) 12/19/2008 Tdap (Adacel, Boostrix) 06/26/2017 Family History Medical History Relation Comments Cataracts Father Cerebrovascular Accident Father Diabetes Father Heart Disease Father Hypertension Father Macular Degeneration Father Heart Failure Mother Hypertension Mother Cancer Neg Hx Glaucoma Neg Hx Retinal Detachment Neg Hx Skin Cancer Neg Hx Strabismus Neg Hx Thyroid Disease Neg Hx Relation Status Comments Father Mother Social History Tobacco Use Types Packs/Day Years Used Date Smoking Tobacco: Former Cigarettes 1 25 1 955 - 1979 Smokeless Tobacco: Never Alcohol Use Standard Drinks/Week Comments Yes 1 (1 standard drink = 0.6 oz pur e alcohol) 1-2 drinks per week Sex and Gender Information Value Date Recorded Sex Assigned at Not on file Gender Identity Not on file Sexual Orientation Not on file Last Filed Vital Signs Vital Sign Reading Time Taken Comments Blood Pressure 109/63 10/08/2022 1:58 PM EST Pulse 86 10/08/2022 1:58 PM EST Temperature 36.6 ??C (97.8 ??F) 01/10/2021 3 :07 PM EDT Respiratory Rate 20 01/10/2021 3:07 PM EDT Oxygen Saturation 97% 10/08/2022 1:5 8 PM EST Inhaled Oxygen Concentration - - Weight 87.4 kg (192 lb 11.2 oz) 10/08/2022 1:58 PM EST Height 170.2 cm (5' 7) 10/08/2022 1:58 PM EST patient reported Body Mass Index 30.18 10/08/2022 1:58 PM EST Plan of Treatment Upcoming Encounters Date Type Department Care Team (Late st Contact Info) Description 08/31/2024 10:00 AM EST Hospital Encounter [place] [phone] Arrived Health Maintenance Due Date Last Done Comments Zoster vaccine (1 of 2) 10/26/1989 Advance Directive 10/26/1994 Covid-19 Vaccine (2023-2 5 season) 2024 Influenza (Flu) vaccine (1 o f 1 - Influenza standard series) 04/11/2024 06/19/2020, 07/01/2019, 07/01/2019, Additional history exists Tetanus/Diphtheria/Pertussis Vaccines (2 - Td or Tdap) 06/26/2027 06/26/2017 Pneumoccocal Vaccine: 65+ Completed 09/13/2015, 06/2009 Medical Devices Implanted Type [place] Comptroller Device Identifier Shelf Expiration Date Model / Serial / Lot Bsx [id number] Lead SnapYeti [id number] / [id number] / Bsx [id number] Lead SnapYeti [id number] / [id number] / Bsx : [id number] : [id number] Implanted:12/11 (Quantity not on file) Pacemaker SnapYeti [id number] / [id number] / Advance Directives * Attempt Cardiopulmonary Resuscitation - Inpatient (Latest Code Status on File) Date Activated Date Inactivated Comments 11/16/2020 3:58 PM 11/17/2020 2:01 PM Question Answer Comments Code Status decision made by: Patient * Attempt Cardiopulmonary Resuscitation - Inpatient Date Activated Date Inactivated Comments 11/16/2020 12:35 PM 11/16/2020 3:57 PM Question Answer Comments Code Status decision made by: Patient * Full Code Date Activated Date Inactivated Comments 05/20/2017 5:09 PM 11/16/2020 9:45 AM Question Answer Comments Does patient have capacity to make decision: Yes * Full Code Date Activated Date Inactivated Comments 05/18/2017 1:32 PM 05/20/2017 5:09 PM Question Answer Comments Does patient have capacity to make decision: Yes Care Teams Director Adult Relationship Specialty Start Date End Date Jaylan Quintero MD PCP - General Family Medicine 12/11/21
--- OUTSIDE RECORDS SUMMARY | 2024-06-16 15:30 | XMS_ITS | Encounter Summary ---
[place] [address] Care Team Providers Care Industrial Engineer Name Role Phone Jaylan Quintero MD Primary Care Provider [phone] Encounter Details Date Type Department Care Team (Latest Contact Info) Description 06/02/2024 10:00 AM EDT - 06/02/2024 11:59 PM EDT Hospital Encounter Non-Invasive [place] [phone] Discharge Disposition: Home Social History Tobacco Use Types Packs/Day Years Used Date Smoking Tobacco: Former Cigarettes 1 1 955 - 8900 Smokeless Tobacco: Never Alcohol Use Standard Drinks/Week [...] st Contact Info) Description 08/31/2024 10:00 AM [facility] Hospital Encounter Non-Invasive [place] [address] Arrived documented as of this encounter Visit Diagnoses Not on filedocumented in this encounter Care Teams Industrial Engineer Relationship Specialty Start Date End Date Jaylan Quintero MD PCP - General Family Medicine 12/11/21 documented as of this encounter
--- OUTSIDE RECORDS SUMMARY | 2024-06-16 15:30 | XMS_ITS | Encounter Summary ---
Author Organization [facility] Address [address] [place] [address] Care Team Providers Care Sunglass Clip Attacher Name Role Phone Unavailable Primary Care Provider Unavailabl e Encounter Details Date Type Department Care Team (Late st Contact Info) Description 09/18/2021 Lab Requisition [facility] Pathology & Laboratory Medicine - [facility] [address] [place] [address] Outr Resulting Lab, Provider Social History Tobacco Use Types Packs/Day Years Used Date Smoking Tobacco: Never Assessed Sex and Gender Information Value Date Recorded Sex Assigned at Not on file Gender Identity Not on file Sexual Orientation Not on file documented as of this encounter Plan of Treatment Not on file documented as of this encounter Procedures Procedure Name Priority Date/Time Associated Diagnosis Comments PSA TOTAL, DIAGNOSTIC Routine 09/17/2021 11:30 EST documented in this encounter Results * PSA TOTAL, DIAGNOSTIC (09/17/2021 11:30 EST) PSA 1.3 0.0 - 6.5 ng/mL 09/18/2021 18:48 EST [facility] Blood VENOUS BLOOD / Unknown 09/17/2021 11:30 EST 09/18/2021 17:39 EST Narrative [facility] - 09/18/2021 18:48 EST NOTE: Serum PSA concentration should not be interpreted as absolute evidence for the presence or absence of malignant disease. Assayed on Siemens ADVIA Centaur XPT using chemiluminescent technology.??Values obtained by using different assay methods cannot be used interchangeably. Provider Outr Resulting Lab CHEMISTRY & BLOOD GAS ORDERABLES [facility] [address] [place] [address] documented in this encounter Visit Diagnoses Not on filedocumented in this encounter
--- OUTSIDE RECORDS SUMMARY | 2024-06-16 15:30 | XMS_ITS | Encounter Summary ---
Author Organization [facility] Address [address] [place] [address] Care Team Providers Care Test Director Name Role Phone Unavailable Primary Care Provider Unavailabl e Encounter Details Date Type Department Care Team (Late st Contact Info) Description 05/21/2023 Lab Requisition [facility] Pathology & Laboratory Medicine - [facility] [address] [place] [address] Outr Resulting Lab, Provider Social History Tobacco [...] Associated Diagnosis Comments PSA TOTAL, DIAGNOSTIC Routine 05/20/2023 15:05 EDT documented in this encounter Results * PSA TOTAL, DIAGNOSTIC (05/20/2023 15:05 EDT) PSA 1.8 <=6.5 ng/mL 05/21/2023 19:18 EDT [facility] Blood VENOUS BLOOD / Unknown 05/20/2023 15:05 EDT 05/21/2023 17:06 EDT Narrative [facility] - 05/21/2023 19:18 EDT NOTE: Serum PSA concentration should not be interpreted as absolute evidence for the presence or absence of malignant disease. Assayed on Siemens ADVIA Centaur XPT using chemiluminescent technology.??Values obtained by using different assay methods cannot be used interchangeably. Provider Outr Resulting Lab CHEMISTRY & BLOOD GAS ORDERABLES [facility] [address] [place] [address] documented in this encounter Visit Diagnoses Not on filedocumented in this encounter
--- OUTSIDE RECORDS SUMMARY | 2024-06-16 15:30 | XMS_ITS | Encounter Summary ---
Author Organization [facility] Address [address] [place] [address] Care Team Providers Care Sql Database Programmer Name Role Phone Unavailable Primary Care Provider Unavailabl e Encounter Details Date Type Department Care Team (Late st Contact Info) Description 08/26/2022 Lab Requisition [facility] Pathology & Laboratory Medicine - [facility] [address] [place] [address] Outr Resulting Lab, Provider Social History Tobacco [...] Procedure Name Priority Date/Time Associated Diagnosis Comments SPEP, INCLUDES QUANTITATION OF MONOCLONAL SPIKE PERFORMABLE Today 08/26/2022 10:50 EST SPEP, INCLUDES QUANTITATION OF MONOCLONAL SPIKE Routine 08/26/2022 10:50 EST PROTEIN, TOTAL Today 08/26/2022 10:50 EST HEMOGLOBIN A1C Routine 08/26/2022 10:50 EST documented in this encounter Results * (ABNORMAL) SPEP, INCLUDES QUANTITATION OF MONOCLONAL SPIKE PERFORMABLE (08/26/2022 10:50 EST) Albumin % 57.3 55.8 - 66.1 % 08/28/2022 13:32 EST [facility] Albumin g/dL 4.0 3.6 - 5.2 g/dL 08/28/2022 13:32 EST [facility] Alpha-1 % 5.1(H) 2.9 - 4.9 % 08/28/2022 13:32 EST [facility] Alpha-1 g/dL 0.40 0.15 - 0.40 g/dL 08/28/2022 13:32 [facility] Alpha-2 % 11.3 7.1 - 11.8 % 08/28/2022 13:32 [facility] Alpha-2 g/dL 0.80 0.50 - 1.00 g/dL 08/28/2022 13:32 [facility] Beta % 11.9 8.4 - 13.1 % 08/28/2022 13:32 [facility] Beta g/dL 0.80 0.60 - 1.20 g/dL 08/28/2022 13:32 [facility] Gamma % 14.4 11.1 - 18.8 % 08/28/2022 13:32 [facility] Gamma g/dL 1.00 0.60 - 1.60 g/dL 08/28/2022 13:32 [facility] SPEP Comment No apparent monoclonal protein seen on serum electrophoresis 08/28/2022 13:32 [facility] Comment:See scanned/suppleme ntary report. Total Protein 6.9 6.3 - 8.2 g/dL 08/28/2022 13:32 [facility] Blood VENOUS BLOOD / Unknown 08/26/2022 10:50 EST 08/27/2022 17:10 EST Provider Outr Resulting Lab CHEMISTRY & BLOOD GAS ORDERABLES Performing Organization Address City/[facility]/ZIP Co de Phone Number [facility] [address] [place] [address] * PROTEIN, TOTAL (08/26/2022 10:50 EST) Blood VENOUS BLOOD / Unknown 08/26/2022 10:50 EST 08/27/2022 17:10 EST Provider Outr Resulting Lab CHEMISTRY & BLOOD GAS ORDERABLES Performing Organization Address City/[facility]/ZIP Co de Phone Number [facility] [address] [place] [address] * HEMOGLOBIN A1C (08/26/2022 10:50 EST) Hemoglobin A1c 5.6 <5.7 % 08/27/2022 19:08 EST [facility] Comment: Glycemic Status References: Normal: ??<5.7% Pre-Diabetes: ??5.7% - 6.4% Diagnostic of Diabetes: ??> or = 6.5% (if confirmed) Est Avg Glucose 114 mg/dL 19:08 EST [facility] Comment:The eAG represents t he A1c result expressed as average glucose in mg/dL. Blood VENOUS BLOOD / Unknown 08/26/2022 10:50 EST 08/27/2022 17:10 EST Provider Outr Resulting Lab CHEMISTRY & BLOOD GAS ORDERABLES [facility] [address] [place] [address] documented in this encounter Visit Diagnoses Not on filedocumented in this encounter
--- OUTSIDE RECORDS SUMMARY | 2024-06-16 15:30 | XMS_ITS | Clinical Summary ---
Author Organization [facility] Address [address] [place] [address] Care Team Providers Care Phonograph Needle Tip Maker Name Role Phone Unavailable Primary Care Provider Unavailabl e Social History Tobacco Use Types Packs/Day Years Used Date Smoking Tobacco: Never Assessed Sex and Gender Information Value Date Recorded Sex Assigned at Not on file Gender Identity Not on file Sexual Orientation Not on file Plan of Treatment Health Maintenance Due Date Last Done Comments RSV Immunization ( o r 60+ Years) (1 - 1-dose 60+ series) 1999 Fall Risk Screening 10/26/2004 COVID-19 Vaccine (24 season) 2023
--- OUTSIDE RECORDS SUMMARY | 2024-06-16 15:30 | XMS_ITS | Referral Summary ---
Author Organization [facility] Address [address] [place] [address] Care Team Providers Care Supervisor Inspecting Name Role Phone Unavailable Primary Care Provider Unavailabl e Social History Tobacco Use Types Packs/Day Years Used Date Smoking Tobacco: Never Assessed Sex and Gender Information Value Date Recorded Sex Assigned at Not on file Gender Identity Not on file Sexual Orientation Not on file Plan of Treatment Not on file
--- OUTSIDE RECORDS SUMMARY | 2024-06-16 15:30 | XMS_ITS | Encounter Summary ---
[place] [address] Care Team Providers Care Claims Associate Name Role Phone Jaylan Quintero MD Primary Care Provider [phone] Encounter Details Date Type Department Care Team (Latest Contact Info) Description 03/04/2024 10:00 AM EDT - 03/04/2024 11:59 PM EDT Hospital Encounter [place] [phone] Discharge Disposition: Home Social History Tobacco Use Types Packs/Day Years Used Date Smoking Tobacco: Former Cigarettes 955 - 6481 Smokeless Tobacco: Never Alcohol Use Standard Drinks/Week [...] st Contact Info) Description 08/31/2024 10:00 AM [facility] Hospital Encounter [place] [address] Arrived documented as of this encounter Procedures Procedure Name Priority Date/Time Associated Diagnosis Comments PRO PM INTERROGATION REMOTE UP TO 90 DAYS Routine 01/05/2024 6:22 AM EDT documented in this encounter Results * Cardiac Device Check - Remote (01/05/2024 6:22 AM EDT) Anatomical Region Laterality Modality Other 01/05/2024 6:22 AM EDT Trenton Rutledge MD IMPLANTABLE CARDIAC DEVICE documented in this encounter Visit Diagnoses Not on filedocumented in this encounter Care Teams Claims Associate Relationship Specialty Start Date End Date Jaylan Quintero MD PCP - General Family Medicine 12/11/21 documented as of this encounter
--- OUTSIDE RECORDS SUMMARY | 2024-06-16 15:31 | XMS_ITS | Encounter Summary ---
Author Organization [facility] Address [facility] [place] [address] Care Team Providers Care Hazardous Materials Handler Name Role Phone Ricki Traylor MD Primary Care Provider [phone] Encounter Details Date Type Department Care Team (Late st Contact Info) Description 01/31/2021 [place] [phone] Ernestine Queen RN Social History Tobacco Use Types Packs/Day Years Used Date Smoking Tobacco: Former Cigarettes 1 04 09 955 - 6562 Smokeless Tobacco: Never Alcohol Use Standard Drinks/Week [...] AM EST Hospital Encounter Non-Invasive [place] [phone] Arrived documented as of this encounter Visit Diagnoses Not on filedocumented in this encounter Care Teams Hazardous Materials Handler Relationship Specialty Start Date End Date Ricki Traylor MD [facility] [place] [address] PCP - General General Internal Medicine 05/30/1710/09 documented as of this encounter
--- OUTSIDE RECORDS SUMMARY | 2024-06-16 15:31 | XMS_ITS | Encounter Summary ---
[place] [address] Care Team Providers Care Research Program Assistant Name Role Phone Jaylan Quintero MD Primary Care Provider [phone] Encounter Details Date Type Department Care Team (Latest Contact Info) Description 12/10/2022 10:00 AM EDT - 12/10/2022 11:59 PM EDT Hospital Encounter Non[place] [phone] Discharge Disposition: Home Social History Tobacco Use Types Packs/Day Years Used Date Smoking Tobacco: Former Cigarettes 1 1 955 - 1448 Smokeless Tobacco: Never Alcohol Use Standard Drinks/Week [...] st Contact Info) Description 08/31/2024 10:00 AM [facility] Hospital Encounter Non[place] [address] Arrived documented as of this encounter Procedures Procedure Name Priority Date/Time Associated Diagnosis Comments PRO PM INTERROGATION REMOTE UP TO 90 DAYS Routine 10/22/2022 6:21 AM EDT documented in this encounter Results * Cardiac Device Check - Remote (10/22/2022 6:21 AM EDT) Anatomical Region Laterality Modality Other 10/22/2022 6:21 AM EDT Gabriel Sinha MD IMPLANTABLE CARDIAC DEVICE documented in this encounter Visit Diagnoses Not on filedocumented in this encounter Care Teams Research Program Assistant Relationship Specialty Start Date End Date Jaylan Quintero MD PCP - General Family Medicine 12/11/21 documented as of this encounter
--- OUTSIDE RECORDS SUMMARY | 2024-06-16 15:31 | XMS_ITS | Encounter Summary ---
Author Organization [facility] [place] [address] Care Team Providers Care Battery Plate Remover Name Role Phone Ricki Traylor MD Primary Care Provider [phone] Reason for Visit * Reason Onset Date Comments Other 01/03/2021 Encounter Details Date Type Department Care Team (Late st Contact Info) Description 01/03/2021 Telephone [place] [address] Vanessa Segovia Other Social History Tobacco Use Types Packs/Day Years Used Date Smoking Tobacco: Former Cigarettes 1 25 1 775 - 2080 Smokeless Tobacco: Never Alcohol Use Standard Drinks/Week Comments Yes 1 (1 standard drink = 0.6 oz pur e alcohol) 1-2 drinks per week Sex and Gender Information Value Date Recorded Sex Assigned at Not on file Gender Identity Not on file Sexual Orientation Not on file documented as of this encounter Miscellaneous Notes * Telephone Encounter - Staci Wasserman RN - 01/04/2021 8:45 AM EDT Call from Jessie Roman is rehabbing the patient and she reports he having a few concerning episodes, and was sentto the ED (twice) to have a 500 cc bolus of IVF. The first time was 12/29 and patient has systolic BP in the 70's. Was found out the patient was dehydrated and had a UTI. 01/01/2021 was fine. 01/03/2021 the patient there, 109 systolic and dropped to 66 after 10 minutes oftherapy. Became lightheaded and quite pale.This time the patient did not recover, and they sent himagain to the ED. Again, received IVF and the Provider there discontinued the Lisinopril as patient had not recoveredthe second episode. Message sent to the PCP to inform. * Telephone Encounter - Staci Wasserman RN - 01/03/2021 7:42 PM EDT Called Jessie at [facility] Cardiac Rehab. Nurse left message regarding patient, and number to call back. * Telephone Encounter - Vanessa Mcgrath - 01/03/2021 3:47 PM EDT Message: Jessie is calling to update the team. [facility] patient had his stint placed in November, [facility] patient is currently in Phase 2 of Cardiac Rehab. Jessie olivas on 12/29/2020 patient had stistolic Blood pressue in the 70's and the rehab sent patient to the ER. [facility] patient was dehydrated and was diagnosed with a UTI. Jessie patient came back on 01/01/2021 and was fine, states he did his normal workup. Jessie olivas patient came in today, 01/03/2021 for a regular follow up, 109 was blood pressure and then states it went to 66 after about 10 minutes of exercise, [facility] patient was also pale and lightheaded. Jessie wanted to update the team of what patient has been going through. Ask caller their first and last name and relationship to the patient: Jessie cardiac rehab at [facility] Best time to call back: any Ok to leave a message: yes Ok to send my- message: no Offered Appointment: no MA/Nurse/Assembler Piano contacted via: Message: yes Call: no Pager: [phone] documented in this encounter Plan of Treatment Upcoming Encounters Date Type Department Care Team (Late st Contact Info) Description 08/31/2024 10:00 AM EST Hospital Encounter Non-Invasive [place] [address] Arrived documented as of this encounter Visit Diagnoses Not on filedocumented in this encounter Care Teams Battery Plate Remover Relationship Specialty Start Date End Date Ricki Traylor MD [facility] [place] [address] PCP - General General Internal Medicine 05/30/1710/09 documented as of this encounter
--- OUTSIDE RECORDS SUMMARY | 2024-06-16 15:31 | XMS_ITS | Encounter Summary ---
[place] [address] Care Team Providers Care Maintenance Plumber Name Role Phone aJylan Quintero MD Primary Care Provider [phone] Encounter Details Date Type Department Care Team (Latest Contact Info) Description 03/10/2023 10:00 AM EDT - 03/10/2023 11:59 PM EDT Hospital Encounter Non-Invasive [place] [phone] Discharge Disposition: Home Social History Tobacco Use Types Packs/Day Years Used Date Smoking Tobacco: Former Cigarettes 1 1 955 - 6070 Smokeless Tobacco: Never Alcohol Use Standard Drinks/Week [...] st Contact Info) Description 08/31/2024 10:00 AM [facility] Hospital Encounter Non-Invasive [place] [address] Arrived documented as of this encounter Procedures Procedure Name Priority Date/Time Associated Diagnosis Comments PRO PM INTERROGATION REMOTE UP TO 90 DAYS Routine 01/21/2023 6:21 AM EDT documented in this encounter Results * Cardiac Device Check - Remote (01/21/2023 6:21 AM EDT) Anatomical Region Laterality Modality Other 01/21/2023 6:21 AM EDT Gabriel Sinha MD IMPLANTABLE CARDIAC DEVICE documented in this encounter Visit Diagnoses Not on filedocumented in this encounter Care Teams Maintenance Plumber Relationship Specialty Start Date End Date Jaylan Quintero MD PCP - General Family Medicine 12/11/21 documented as of this encounter
--- OUTSIDE RECORDS SUMMARY | 2024-06-16 15:31 | XMS_ITS | Encounter Summary ---
[place] [address] Care Team Providers Care Environmental Program Manager Name Role Phone Unavailable Primary Care Provider Unavailabl e Encounter Details Date Type Department Care Team (Late st Contact Info) Description 12/03/2021 Telephone Cardiology at [address] [phone] Radha Mcnamara LNA Social History Tobacco Use Types Packs/Day Years Used Date Smoking Tobacco: Former Cigarettes 955 - 1979 Smokeless Tobacco: Never Alcohol Use Standard Drinks/Week Comments Yes 1 (1 standard drink = 0.6 oz pur e alcohol) 1-2 drinks per week Sex and Gender Information Value Date Recorded Sex Assigned at Not on file Gender Identity Not on file Sexual Orientation Not on file documented as of this encounter Miscellaneous Notes * Telephone Encounter - Radha Mcnamara LNA - 12/03/2021 10:37 AM EDT *Left message asking patient to bring an updated medication list for their upcoming Clinic Visit on12/10/[address] Mills. *Also, if any recent lab work has been completed to please give me a call. documented in this encounter Plan of Treatment Upcoming Encounters Date Type Department Care Team (Late st Contact Info) Description 08/31/2024 10:00 AM EST Hospital Encounter Non[place] [address] Arrived documented as of this encounter Visit Diagnoses Not on filedocumented in this encounter
--- OUTSIDE RECORDS SUMMARY | 2024-06-16 15:31 | XMS_ITS | Encounter Summary ---
Author Organization [facility] Address [facility] [place] [address] Care Team Providers Care Director Digital Catalogue Name Role Phone Ricki Traylor MD Primary Care Provider [phone] Reason for Visit * Reason Comments Skin Check Encounter Details Date Type Department Care Team (Late st Contact Info) Description 01/10/2021 10:40 AM EDT Office Visit Dermatology at [facility] [address] [place] [address] Cesar Quach MD [facility] [address] [place] [address] Stasis dermatitis of both legs; Martinez angiomas; Seborrheic keratoses; Sebaceous hyperplasias of face; Lentigines; Actinic keratoses; History of squamous cell carcinoma in situ (SCCIS); Xerosis of skin; Rash Social History Tobacco Use Types Packs/Day Years Used Date Smoking Tobacco: Former Cigarettes 1 25 1 997 - 8444 Smokeless Tobacco: Never Alcohol Use Standard Drinks/Week Comments Yes 1 (1 standard drink = 0.6 oz pur e alcohol) 1-2 drinks per week Sex and Gender Information Value Date Recorded Sex Assigned at Not on file Gender Identity Not on file Sexual Orientation Not on file documented as of this encounter Progress Notes * Cesar Quach MD - 01/10/2021 10:40 AM EDT Images from the original note were not included. DEPARTMENT OF DERMATOLOGY [facility] Provider: Cesar Quach MD Patient's preferred name Ramón Preferred contact method for results [] myDH [] Letter [x] Phone: Detailed phone message OK? yes Are there any other people with whom we may discuss your care? 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 Here today for a full skin exam with the following concerns: He reports a scaly spot on left base of neck. Relatively asymptomatic: non- pruritic, non-painful, never bled, no discharge. He reports much improvement in his stasis dermatitis. Only needs triamcinolone ~weekly. Medications: Reviewed in eD-H Allergies: Reviewed in eD-H Skin Examination: Full skin examination: Patient asked to undress to their comfort level. Verbalized that the provider's preference is that patient removal all clothing and that the provider will not examine areas patient elects to keep covered. Examination of the scalp, hair, head, face, ears, neck, chest, axillae,abdomen, back, arms, and lower legs. Genitalia and buttocks was not examined. Assessment/Plan #. Actinic Keratoses - 0.2-0.3cm scaly irregular pink papule(s) located on left base on neck, rightshoulder and face - Discussed treatment options with patient, including cryotherapy and efudex - Joint decision to pursue LN2 x 2 to lesion. Advised to return if lesion does not resolve. Discussed etiology and patient agreed for cryotherapy Procedure Note: Procedure: Destruction of lesions with cryotherapy. Number: 5 Location: as above Discussed procedure and expectations including risks (including risk of hypopigmentation) and benefits. Verbal consent obtained. Frozen with LN2, 15-30 second thaw time, TWICE. There were no complications; the patient tolerated the procedure well. Post-procedure expectations and wound care were reviewed. #. Xerosis. Scaling of distal legs, feet, scalp, forehead - AV was negative for fungal elements - Recommend Amlactin Rapid Relief lotion daily to feet and legs - CeraVe cream daily to face and scalp # Stasis dermatitis - clear on exam today - Continue wearing compression stockings whenever possible. - Recommended moisturizing with Amlactin throughout the day as needed. - refilled triamcinolone 0.1% ointment. Apply to the legs twice weekly for maintenance. For flares,apply twice daily for up to 14 days, then take 1 week off. Repeat as needed. ?? # Solar lentigines - 0.2-0.6cm light-brown evenly pigmented, well-demarcated macules on the scalp. - Patient reassured of benign nature, reinforced importance of sun protection. ?? # Martinez angiomas - Multiple 0.2-0.4cm bright red, well-demarcated papules on the abdomen and back. - Reassured of benign nature. ?? # Seborrheic keratoses - Scattered brown and flesh colored waxy nummular stuck on plaques located on the trunk and extremities. - Reassured of benign nature, return to clinic if these lesions become inflamed or irritating. ?? # Sebaceous hyperplasias - 0.2-0.3cm yellowish papule with central umbilication on the cheeks and forehead. - Patient reassured of benign nature. - No treatment necessary. #. History of SCCis - Well healed scar(s) on the central superior chest - NER; will continue to clinically monitor Other items to document in the assessment/plan if relevant ??? N/A RTC: June for field therapy discussion Scribe attestation: Santa Patel [facility] has performed the documentation for this encounter in the presence of and acting as a scribe for Cesar Quach MD I performed the above scribed service and agree with the accuracy of the documentation in this encounter. Reviewed and signed by: Cesar Quach MD Dermatology [facility] Patient seen and evaluated with staff hypo dipper: Zach Arechiga MD Department of Dermatology [facility] * Zach Arechiga MD - 01/10/2021 10:40 AM EDT I directly supervised Dr. Quach during this office visit. Dr. Quach presented the history and physical exam to me. I then saw and examined this patient with Dr. Quach. We reviewed the history and pertinent details and I confirmed the physical findings. I agree with the details of the history andphysical exam as documented in Dr. Quach's note. 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 [place] [address] PCP - General General Internal Medicine 05/30/1710/09 documented as of this encounter
--- OUTSIDE RECORDS SUMMARY | 2024-06-16 15:31 | XMS_ITS | Encounter Summary ---
[place] [address] Care Team Providers Care Child Care Attendant School Name Role Phone Jaylan Quintero MD Primary Care Provider [phone] Encounter Details Date Type Department Care Team (Late st Contact Info) Description 12/28/2021 Telephone [place] [address] Rochelle Parks Social History Tobacco Use Types Packs/Day Years Used Date Smoking Tobacco: Former Cigarettes 5 1979 Smokeless Tobacco: Never Alcohol Use Standard Drinks/Week Comments Yes 1 (1 standard drink = 0.6 oz pur e alcohol) 1-2 drinks per week Sex and Gender Information Value Date Recorded Sex Assigned at Not on file Gender Identity Not on file Sexual Orientation Not on file documented as of this encounter Miscellaneous Notes * Telephone Encounter - Rochelle Parks - 12/28/2021 8:25 AM EDT called to [address] RICH called 1 x documented in this encounter Plan of Treatment Upcoming Encounters Date Type Department Care Team (Late st Contact Info) Description 08/31/2024 10:00 AM EST Hospital Encounter [place] [address] Arrived documented as of this encounter Visit Diagnoses Not on filedocumented in this encounter Care Teams Child Care Attendant School Relationship Specialty Start Date End Date Jaylan Quintero MD PCP - General Family Medicine 12/11/21 documented as of this encounter
--- OUTSIDE RECORDS SUMMARY | 2024-06-16 15:31 | XMS_ITS | Encounter Summary ---
Author Organization [facility] Address [facility] [place] [address] Care Team Providers Care Product Mgr Name Role Phone Ricki Traylor MD Primary Care Provider [phone] Reason for Visit * Reason Comments Annual Wellness Visit Last two times he has gone to TP his BP has been low enough that he is sent to the ED, weakness, pt has a growth on kidney that has enlarged. Encounter Details Date Type Department Care Team (Late st Contact Info) Description 01/10/2021 2:40 PM EDT Office [place] [address] Ricki Traylor MD [facility] GENER[place] [address] Hypotension, unspecified hypotension type; COPD, moderate Social History Tobacco Use Types Packs/Day Years Used Date Smoking Tobacco: Former Cigarettes 1 04 09 955 - 1979 Smokeless Tobacco: Never Alcohol Use Standard Drinks/Week Comments Yes 1 (1 standard drink = 0.6 oz pur e alcohol) 1-2 drinks per week Sex and Gender Information Value Date Recorded Sex Assigned at Not on file Gender Identity Not on file Sexual Orientation Not on file documented as of this encounter Last Filed Vital Signs Vital Sign Reading Time Taken Comments Blood Pressure 102/49 01/10/2021 3:07 PM EDT Pulse 74 01/10/2021 3:07 PM EDT Temperature 36.6 ??C (97.8 ??F) 01/10/2021 3:07 PM ED T Respiratory Rate 20 01/10/2021 3:07 PM EDT Oxygen Saturation 94% 01/10/2021 3:07 PM EDT Inhaled Oxygen Concentration - - Weight 87.5 kg (192 lb 12.8 oz) 01/10/2021 3:07 PM EDT Height 169.8 cm (5' 6.85) 01/10/2021 3:07 PM ED T Body Mass Index 30.33 01/10/2021 3:07 PM EDT documented in this encounter Progress Notes * Nurys Peña CCMA - 01/10/2021 2:40 PM EDT Evaluation today was performed: [] By video conference [x] In-person PPE used during in-person evaluation: [] Gloves [] Gown [x] Goggles [] Face-shield [x] Level 2 mask [] N-95 [] PAPR * Nurys Peña CCMA - 01/10/2021 2:40 PM EDT Subjective: Patient ID: Vikash Álvarez is a 80 y.o. male presents today for an AWV. Self assessment of Health Status: (including patient concerns) Other providers: Dr. Quach- [facility] Dr. Gamboa- Cardiology Dr. Munoz- Pulmonology Suppliers: [employer] Memory issues (mini-cog score 5): no Advanced directives: At home Health Risk Assessment (HRA): (all responses reviewed including blank responses) Annual Wellness Visit Responses: myD-H Annual Wellness Visit Responses 09/23/2019 Health in general Good Quality of life Good Physical health Good Mental health Good Satisfaction with social activities Good Ability to carry out social activities Fair Ability to carry out physical activities Moderately Bothered by emotional problems Rarely Rate of fatigue Moderate Rate of pain 0 -No Pain PROMIS-10 Physical Health Score 44.9 PROMIS-10 Mental Health Score 45.8 Hearing Loss Yes Activity - low level (Bathing, Dressing, Eating, Mobility, Using toilet, Grooming) Walking ADLS - Help I get all the help I need Activity - high level (Laundry, Housekeeping, Banking, Shopping, Use phone, Food Prep, Transportation, Taking meds) No, I do not have difficulty with these activities Fallen in last year Yes Difficulties with balance or walking Yes Injured as a result of a fall Yes Walkways free of cords/clutter Yes Smoke detectors in house Yes Difficulty walking 1/4 mile A lot of difficulties or unable Difficulty climbing a flight of stairs A lot of difficulties or unable Involuntarily lost > 10 pounds No Feel everything is an effort/could not get going Rarely or sometimes (2 times or less/week) Physical activity level Regular physical activity (at least 2-4 hours per week) Disability Score (FiND) 1 (Disabled) Little interest or pleasure Not at all Down, depressed, hopeless Not at all Feel lonely or isolated Never Confident in managing health problems Somewhat confident Medication finances No Smoking Status Quit over one year ago Drinks per day 0 drinks Audit-C Score Incomplete 10 mins of vigorous physical activity 3 days Time spent on vigorous physical activity 20 minutes Time spent on moderate physical activity 20 minutes Eat Fruit 3 - 5 times per week Wear Seatbelt Always Urinary Incontinence Yes Live Alone No School Graduated from college Hours per week Does not apply # People Supported 2 Past/Family/Social History/Medications and Allergies reviewed and/or documented below. (If using opioids or at risk for OUD, the benefits of using other, non-opioid pain therapies was discussed.) Objective: There were no vitals taken for this visit. 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 His current concerns are: ? Hypotension - pt has had several episodes of hypotension requiring going to ED after exercise. His work ups have been negative for repeat cardiac injury. Local MD d/c lisinopril. Pt feels marginally better. ?? COPD -stable Physical Exam HENT: N EOM, OSCAR, N TM, N sinus, N Pharynx, N LN, N Thyroid?? Cardiovascular: N s1s2 w/o s3s4 2-3/sys murmur best at aortic root?? Pulmonary/Chest: Effort normal??and breath sounds normal. He has no wheezes. Abdominal: Soft. Bowel sounds are normal. There is no tenderness. Without HSM?? Musculoskeletal: N BPT, Full ROM?? Assessment and Plan: Assessment/Plan: Mr. Álvarez was seen today for exam. In conclusion, we discussed the followin. SCREENING SCHEDULE & IMMUNIZATIONS - Health Maintenance Topic Date Due ??? Zoster vaccine (1 of 2) Never done ??? Advance Directive Never done ??? Tetanus vaccine 06/26/2027 ??? Pneumo vaccine (65+) Completed ??? Influenza (Flu) vaccine Completed ??? Tdap adult Completed 2. RISK FACTORS (including any positives from HRA) and 3. PERSONALIZED HEALTH ADVICE - [x] A copy of the Risk Factors and Personalized Health Advice and Health Maintenance List was copied to the patient's After Visit Summary. 3. Hypotension, unspecified hypotension type Reduce furoseimide in half 4. COPD Stable on current regimen F/u prn F/u next scheduled documented in this encounter Plan of Treatment Upcoming Encounters Date Type Department Care Team (Late st Contact Info) Description 08/31/2024 10:00 AM [facility] Hospital Encounter [place] [address] Arrived documented as of this encounter Visit Diagnoses Diagnosis Hypotension, unspecified hypotension type COPD, moderate Chronic airway obstruction, not elsewhere classified documented in this encounter Care Teams Product Mgr Relationship Specialty Start Date End Date Ricki Traylor MD [facility] [place] [address] PCP - General General Internal Medicine 05/30/1710/09 documented as of this encounter
--- OUTSIDE RECORDS SUMMARY | 2024-06-16 15:31 | XMS_ITS | Encounter Summary ---
Author Organization [facility] Address [facility] [place] [address] Care Team Providers Care Smalltalk Developer Name Role Phone Ricki Traylor MD Primary Care Provider [phone] Encounter Details Date Type Department Care Team (Late st Contact Info) Description 12/07/2020 10:40 AM EDT Office Visit Cardiology at [address] [phone] Zamzam Gamboa APRN [facility] [place] [address] ASCVD (arteriosclerotic cardiovascular disease); Aortic valve disease--- TAVR December 2016; SOB (shortness of breath); Conduction system disease---- has [employer] pacer. Social History Tobacco Use Types Packs/Day Years Used Date Smoking Tobacco: Former Cigarettes 1 1 955 - 1979 Smokeless Tobacco: Never [...] Sign Reading Time Taken Comments Blood Pressure 96/52 12/07/2020 10:25 AM EDT Pulse 63 12/07/2020 10:25 AM EDT Temperature - - Respiratory Rate - - Oxygen Saturation 92% 12/07/2020 10:25 AM EDT Inhaled Oxygen Concentration - - Weight 89.4 kg (197 lb) 12/07/2020 10:25 AM EDT Height 172.7 cm (5' 8) 12/07/2020 10:25 AM EDT Body Mass Index 29.95 12/07/2020 10:25 AM EDT documented in this encounter Progress Notes * Zamzam Gamboa, [employer] - 12/07/2020 10:40 AM EDT Images from the original note were not included. CARDIOVASCULAR MEDICINE [place] [address] Subjective: Identification Vikash Álvarez is a 80 y.o. patient of Ricki Traylor MD with the following cardiovascular issues: 1. Coronary disease ?? 4v CABG in 1994 ?? PCI of SVG in 2013 ?? redo PCI due to ISR in May 2017 ?? Cath 11/16/2020 with stent insertion to SVG between origin and OM1 2. Aortic valve disease--- TAVR in December 2016 done at [facility] 3. 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 COPD on nocturnal O2 (FEV1 < 40%), ?? prostate cancer treated with prostectomy Social and family history reviewed. Lives with his in [facility]. 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 Enjoys [employer]. No flowsheet data found. Present Illness: Was seen in May 2020 and had complaints that were concerning for angina. Nuclear medicine stress test was done and was without ischemia or scar. A left heart cath was done which showed obstructive disease in SVG between origin and OM1 and a REBECCA was placed. Has had his interview for cardiac rehab and will start soon Has had back pain and has not been walking Denies chest pain A little lightheaded when getting up fast. Happens very seldom Denies pre-syncope or syncope Weight stable. Denies PND or orthopnea Denies LE edema or abdominal distention SOB with walking up a hill Parked at main entrance and used a walker to walk to the elevator and the clinic and was SOB Notes rapid rates at night. Takes deep breaths and they resolve Medications Current Outpatient Medications: ??? atorvastatin (Lipitor) 40 mg Tablet, Take 1 tablet by mouth every evening., Disp: 90 tablet, Rfl: 3 ??? clopidogreL (Plavix) 75 mg Tablet, Take 1 tablet by mouth daily., Disp: 90 tablet, Rfl: 3 ??? furosemide (Lasix) 20 mg Tablet, Take 1 tablet by mouth daily., Disp: 80 tablet, Rfl: 3 ??? lisinopriL (Prinivil;Zestril) 2.5 mg Tablet, Take 1 tablet by mouth daily., Disp: 90 tablet, Rfl: 3 ??? metoprolol tartrate (Lopressor) 50 mg Tablet, Take 1 tablet by mouth 2 times daily., Disp: 180 tablet, Rfl: 3 ??? aspirin 81 mg Tablet, Chewable, Take 81 mg by mouth daily., Disp: 90 tablet, Rfl: 3 ??? diphenhydrAMINE-acetaminophen (TYLENOL PM) 25-500 mg Tablet, Take by mouth daily as needed (Bedtime)., Disp: , Rfl: ??? nitroGLYcerin (Nitrostat) 0.4 mg Tablet, Sublingual, Place 1 tablet under the tongue every 5 minutes as needed for Chest pain., Disp: 25 tablet, Rfl: 12 ??? triamcinolone (KENALOG) 0.1 % Ointment, Use 2 times daily to lower extremities for 1 week, takea week off, repeat cycle if needed., Disp: 454 g, Rfl: 0 Objective: Physical Exam BP 96/52 Pulse 63 Ht 172.7 cm (5' 8) Wt 89.4 kg (197 lb) SpO2 92% BMI 29.95 kg/m?? , There is no height or weight on file to calculate BMI. General: NAD, wearing a face mask today Neck: JVP not visualized. No HJR Cardiac: Regular without significant murmurs rubs or gallops Lungs: Fine crackles at bilateral bases Abdomen: Soft NT/ND Extremities: WWP w/ no appreciable edema R groin: Small hematoma noted at cath site. Ecchymosis over pubic area Labs Lab Results Component Value Date NA 140 11/16/2020 K 4.8 11/16/2020 CL 102 11/16/2020 CO2 30 11/16/2020 BUN 26 (H) 11/16/2020 CREATININE 1.07 11/16/2020 CHLPL 139 06/26/2017 HDL 46 06/26/2017 CHOLHDL 3.0 06/26/2017 ProBNP Date Value Ref Range Status 05/12/2020 310 <=450 pg/mL Final 05/18/2017 384 <=450 pg/mL Final Assessment and Plan 1. 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 Device interrogation 11/02/2020: Diagnostics since 05/12/20 Pacing Mode: DDDR 60-130-130 Presenting EGMs: /VS Underlying Rhythm: sinus rhythm rate 74 bpm ?? Atrial Episodes: <1% AT/AF 1 episode of <1 min duration Ventricular Episodes: 0 ?? Atrial Pacin% Ventricular Pacin% HR Histogram: atrial and ventricular graphs well distributed with predominate rates 60s bpm 2. Coronary arteriosclerosis Denies chest pain On aspirin and clopidogrel. REBECCA placed 10/2020 Continue Lisinopril 2.5 mg once daily and BB 3. Aortic valve disease--- TAVR December 2016 Functioning well.?? 4. Cath site hematoma Seen by BERNADINE Jauregui who examined the site No need for US at this time Pt to monitor and call if any change in pain or size of hematoma 5. SOB/Severe airflow obstruction 09/30/2019 Spirometry reveals severe airflow obstruction with concomitant reduction in forced vital capacity. Reports has seen Pulm Medicine and has tried different treatments without effect cc: ?? Ricki Traylor MD [facility] ?? Juan Jose Mills MD [facility] Zamzam Gamboa APRN 12/07/2020 documented in this encounter Plan of Treatment Upcoming Encounters Date Type Department Care Team (Late st Contact Info) Description 08/31/2024 10:00 AM EST Hospital Encounter Non[place] [address] Arrived documented as of this encounter Visit Diagnoses Diagnosis ASCVD (arteriosclerotic cardiovascular disease) Unspecified cardiovascular disease Aortic valve disease--- TAVR December 2016 Aortic valve disorders SOB (shortness of breath) Shortness of breath Conduction system disease---- has [employer] pacer. Cardiac pacemaker in situ documented in this encounter Care Teams Smalltalk Developer Relationship Specialty Start Date End Date Ricki Traylor MD [facility] GENER[facility] [place] [address] PCP - General General Internal Medicine 05/30/1710/09 documented as of this encounter
--- OUTSIDE RECORDS SUMMARY | 2024-06-16 15:31 | XMS_ITS | Encounter Summary ---
Author Organization [facility] [place] [address] Care Team Providers Care Risk Control Director Name Role Phone Ricki Traylor MD Primary Care Provider [phone] Reason for Visit * Reason Onset Date Comments Other 01/31/2021 O2 Rx faxed to Encounter Details Date Type Department Care Team (Late Contact Info) Description 01/31/2021 [place] [phone] Desilets, Ernestine Mariano RN Other (O2 Rx faxed to [phone]) Social History Tobacco Use Types Packs/Day Years Used Date Smoking Tobacco: Former Cigarettes 1 1 955 - 1980 Smokeless Tobacco: Never Alcohol Use Standard Drinks/Week [...] AM EST Hospital Encounter Non-Invasive [place] [address] Arrived documented as of this encounter Visit Diagnoses Not on filedocumented in this encounter Care Teams Risk Control Director Relationship Specialty Start Date End Date Ricki Traylor MD [facility] [place] [address] PCP - General General Internal Medicine 05/30/1710/09 documented as of this encounter
--- OUTSIDE RECORDS SUMMARY | 2024-06-16 15:31 | XMS_ITS | Encounter Summary ---
[place] [address] Care Team Providers Care Linen Manager Name Role Phone Jaylan Quintero MD Primary Care Provider [phone] Encounter Details Date Type Department Care Team (Late st Contact Info) Description 12/25/2021 Telephone [place] [phone] Rochelle Parks Social History Tobacco Use Types [...] * Telephone Encounter - Rochelle Parks - 12/25/2021 4:[address] HILARIO ruffin 1st avail FU called 1x documented in this encounter Plan of Treatment Upcoming Encounters Date Type Department Care Team (Late st Contact Info) Description 08/31/2024 10:00 AM EST Hospital Encounter [place] [address] Arrived documented as of this encounter Visit Diagnoses Not on filedocumented in this encounter Care Teams Linen Manager Relationship Specialty Start Date End Date Jaylan Quintero MD PCP - General Family Medicine 12/11/21 documented as of this encounter
--- OUTSIDE RECORDS SUMMARY | 2024-06-16 15:31 | XMS_ITS | Encounter Summary ---
[place] [address] Care Team Providers Care Rigger Name Role Phone Unavailable Primary Care Provider Unavailabl e Encounter Details Date Type Department Care Team (Late st Contact Info) Description 11/21/2021 Orders Only Cardiology at [address] [phone] Social History Tobacco Use Types Packs/Day Years [...] AM EST Hospital Encounter Non-[place] [address] Arrived documented as of this encounter Procedures Procedure Name Priority Date/Time Associated Diagnosis Comments CARDIAC DEVICE CHECK - REMOTE SCHEDULED Routine 11/21/2021 3:21 AM EDT documented in this encounter Results * (ABNORMAL) Cardiac device check - Remote Scheduled (11/21/2021 3:21 AM EDT) Date Time Interrogation Session IDCO Type Interrogation Session Remote Scheduled IDCO Clinic Name [facility] IDCO Battery Date Time of Measurements IDCO Battery Status Beginning of Service IDCO Battery Remaining Longevity 42 mo IDCO Battery Remaining Percentage 70 % IDCO Episode Identifier APM-30 IDCO Episode Date Time IDCO Episode Type Category Periodic EGM IDCO Episode Vendor Type Category APMRT IDCO Episode Detection And Therapy Details Presenting EGM IDCO Episode Identifier RAAT IDCO Episode Date Time IDCO Episode Type Category Other IDCO Episode Vendor Type Category IDCO Episode Duration IDCO Episode Detection And Therapy Details RA Auto IDCO Episode Identifier RVAT IDCO Episode Date Time IDCO Episode Type Category Other IDCO Episode Vendor Type Category IDCO Episode Duration IDCO Episode Detection And Therapy Details RV Auto IDCO Episode Identifier ATR-14 IDCO Episode Date Time IDCO Episode Type Category AT/AF IDCO Episode Vendor Type Category ATR IDCO Episode Detection Interval Atrial 741 ms IDCO Episode Duration 3 s IDCO Episode Detection And Therapy Details ATR Avg V Rate in ATR: 79 bpm IDCO Episode Identifier PMT-1 IDCO Episode Date Time IDCO Episode Type Category Other IDCO Episode Vendor Type Category PMT IDCO Episode Detection Interval Ventricular 462 ms IDCO Episode Duration IDCO Episode Detection And Therapy Details PMT IDCO Episode Identifier ATR-13 IDCO Episode Date Time IDCO Episode Type Category AT/AF IDCO Episode Vendor Type Category ATR IDCO Episode Detection Interval Atrial 674 ms IDCO Episode Duration 1 s IDCO Episode Detection And Therapy Details ATR Avg V Rate in ATR: 90 bpm IDCO Episode Statistic Type Category VT IDCO Episode Statistic Vendor Type Category IDCO Episode Statistic Recent Count 0 IDCO Episode Statistic Recent Date Time Start 20201102 IDCO Episode Statistic Recent Date Time End 20211121 IDCO Episode Statistic Type Category SVT IDCO Episode Statistic Vendor Type Category SVT IDCO Episode Statistic Recent Count 0 IDCO Episode Statistic Recent Date Time Start 20201102 IDCO Episode Statistic Recent Date Time End 20211121 IDCO Episode Statistic Type Category VT IDCO Episode Statistic Vendor Type Category NSVT IDCO Episode Statistic Recent Count 1 IDCO Episode Statistic Recent Date Time Start 20201102 IDCO Episode Statistic Recent Date Time End 20211121 IDCO Episode Statistic Type Category AT/AF IDCO Episode Statistic Vendor Type Category ATR IDCO Episode Statistic Recent Count 4 IDCO Episode Statistic Recent Date Time Start 20201102 IDCO Episode Statistic Recent Date Time End 20211121 IDCO Episode Statistic Type Category Other IDCO Episode Statistic Vendor Type Category IDCO Episode Statistic Recent Count 0 IDCO Episode Statistic Recent Time Start 20201102 IDCO Episode Statistic Recent Time End 20211121 IDCO Zeferino Setting AT Mode Switch Mode DDI IDCO Zeferino Setting AT Mode Switch Rate 170 {beats}/ min IDCO Zeferino Setting Mode (NBG Code) DDDR IDCO Zeferino Setting Lower Rate Limit 60 {beats}/ min IDCO Zeferino Setting Maximum Tracking Rate 130 {beats}/ min IDCO Zeferino Setting Maximum Sensor Rate 130 {beats}/ min IDCO Zeferino Setting FELICITY Delay High 210 ms IDCO Zeferino Setting FELICITY Delay Low 240 ms IDCO Zeferino Setting PAV Delay High 260 ms IDCO Zeferino Setting PAV Delay Low 300 ms IDCO Zone Setting Type Category VT IDCO Zone Setting Vendor Type Category IDCO Zone Setting Status Monitor IDCO Zone Setting Detection Interval 375 ms IDCO Lead Channel Setting Sensing Sensitivity 0.25 mV IDCO Lead Channel Setting Sensing Adaptation Mode Adaptive IDCO Lead Channel Setting Sensing Polarity Bipolar IDCO Lead Channel Setting Sensing Sensitivity 0.6 mV IDCO Lead Channel Setting Sensing Adaptation Mode Adaptive IDCO Lead Channel Setting Sensing Polarity Bipolar IDCO Lead Channel Setting Pacing Amplitude 2.0 V IDCO Lead Channel Setting Pacing Pulse Width 0.4 ms IDCO Lead Channel Setting Pacing Capture Mode Adaptive IDCO Lead Channel Setting Pacing Polarity Bipolar IDCO Lead Channel Setting Pacing Amplitude 1.7 V IDCO Lead Channel Setting Pacing Pulse Width 0.4 ms IDCO Lead Channel Setting Pacing Capture Mode Adaptive IDCO Lead Channel Setting Pacing Polarity Bipolar IDCO Zeferino Setting Sensor Type Accelerometer + MV IDCO Implantable Pulse Generator Type Pacemaker IDCO Implantable Pulse Generator Model L311 IDCO Implantable Pulse Generator Serial Number [id number] IDCO Implantable Pulse Generator Casino Games Dealer [place] [employer] IDCO Implantable Pulse Generator Implant Date 20170108 IDCO Implantable Lead Model 7741 IDCO Implantable Lead Serial Number [id number] IDCO Implantable Lead [employer] Dealer [place] [employer] IDCO Implantable Lead Implant Date IDCO Implantable Lead Polarity Type Bipolar Lead IDCO Implantable Lead Location Right Atrium IDCO Implantable Lead Model 091274 IDCO Implantable Lead Serial Number [id number] IDCO Implantable Lead [employer] Dealer [place] [employer] IDCO Implantable Lead Implant Date IDCO Implantable Lead Polarity Type Bipolar Lead IDCO Implantable Lead Location Right Ventricle IDCO Lead Channel Measurements Date and Time Start 20211119 IDCO Lead Channel Sensing Intrinsic Amplitude Mean 2.4 mV IDCO Lead Channel Sensing Polarity Bipolar IDCO Lead Channel Pacing Threshold Amplitude 0.6 V IDCO Lead Channel Pacing Threshold Pulse Width 0.4 ms IDCO Lead Channel Pacing Threshold Measurement Method Device Automatic IDCO Lead Channel Pacing Threshold Polarity Bipolar IDCO Lead Channel Impedance Value 626 ohms IDCO Lead Channel Impedance Polarity Bipolar IDCO Lead Channel Measurements Date and Time Start 20211119 IDCO Lead Channel Sensing Intrinsic Amplitude Mean mV IDCO Lead Channel Sensing Polarity Bipolar IDCO Lead Channel Pacing Threshold Amplitude 1.1 V IDCO Lead Channel Pacing Threshold Pulse Width 0.4 ms IDCO Lead Channel Pacing Threshold Measurement Method Device Automatic IDCO Lead Channel Pacing Threshold Polarity Bipolar IDCO Lead Channel Impedance Value 751 ohms IDCO Lead Channel Impedance Polarity Bipolar IDCO Statistic Date Time Start 20201102 IDCO Statistic Date Time End 20211121 IDCO Zeferino Statistic Date Time Start 20201102 IDCO Zeferino Statistic Date Time End 20211121 IDCO Zeferino Statistic RA Percent Paced 21 % IDCO Zeferino Statistic RV Percent Paced 78 % IDCO Atrial Tachy Statistic Date Time Start 20201121 IDCO Atrial Tachy Statistic Date Time End 20211120 IDCO Atrial Tachy Statistic AT/AF [place] Percent 1(<) % IDCO Anatomical Region Laterality Modality Other 11/21/2021 3:21 AM EDT Physician Cardiology IMPLANTABLE CARD IAC DEVICE documented in this encounter Visit Diagnoses Not on filedocumented in this encounter
--- OUTSIDE RECORDS SUMMARY | 2024-06-16 15:31 | XMS_ITS | Encounter Summary ---
Author Organization [facility] Address [facility] [place] [address] Care Team Providers Care Insurance Examiner Name Role Phone Ricki Traylor MD Primary Care Provider [phone] Encounter Details Date Type Department Care Team (Latest Contact Info) Description 05/21/2021 4:00 PM EDT - 05/21/2021 11:59 PM EDT Hospital Encounter Non-Invasive [place] [phone] Prachi Franz MD [facility] [place] [address] Sick sinus syndrome Discharge Disposition: Home Social History Tobacco Use Types Packs/Day Years Used Date Smoking Tobacco: Former Cigarettes 1 25 1 955 - 1980 Smokeless Tobacco: Never [...] Sig Dispensed Refills Start Date End Date triamcinolone (KENALOG) 0.1 % Ointment Use 2 [...] by mouth daily. 90 tablet 3 11/17/2020 diphenhydrAMINE-aceta minophen (TYLENOL PM) 25-500 mg Tablet Take by mouth daily as needed (Bedtime). nitroGLYcerin (Nitrostat) 0.4 mg Tablet, Sublingual Place 1 tablet under the tongue every 5 minutes as needed for Chest pain. 25 tablet 12 05/12/2020 lisinopriL (Prinivil;Zestril) 2.5 mg Tablet Take 1 tablet by mouth daily. 90 tablet 3 11/17/2020 12/10/2021 metoprolol tartrate (Lopressor) 50 mg Tablet Take 1 tablet by mouth 2 times daily. 180 tablet 3 11/17/2020 12/10/2021 documented as of this encounter Plan of Treatment Upcoming Encounters Date Type Department Care Team (Late st Contact Info) Description 08/31/2024 10:00 AM EST Hospital Encounter Non-Invasive [place] [address] Arrived documented as of this encounter Procedures Procedure Name Priority Date/Time Associated Diagnosis Comments PCM INTERROGATION 3 MONTH Routine 05/21/2021 4:01 PM EDT Sick sinus syndrome documented in this encounter Results * PCM INTERROGATION 3 MONTH (05/21/2021 4:01 PM EDT) Anatomical Region Laterality Modality Other Narrative 05/22/2021 8:26 AM EDT Outpatient remote interrogation report: See full report as a linked pdf document Date of transmission: 05/21/2021 Device warehouse stock clerk: [facility] Device type: DC PM Presenting rhythm: ASVP AP 31% JUICE WEIGHER 56% - 100% since late January 2021 Battery: 4 years Episodes: no tachy no AF Atrial pace impedance steadily climbing; still in acceptable range; otherwise, stable lead trends. Activity < 1hr/day Prachi Franz MD 05/22/2021 8:24 AM Prachi Franz MD IMPLANTABLE CARDIAC DEVICE documented in this encounter Visit Diagnoses Diagnosis Sick sinus syndrome Sinoatrial node dysfunction documented in this encounter Care Teams Insurance Examiner Relationship Specialty Start Date End Date Ricki Traylor MD [facility] [place] [address] PCP - General General Internal Medicine 05/30/1710/09 documented as of this encounter
--- OUTSIDE RECORDS SUMMARY | 2024-06-16 15:31 | XMS_ITS | Encounter Summary ---
Author Organization [facility] [place] [address] Care Team Providers Care Mid Level Java Developer Name Role Phone Ricki Traylor MD Primary Care Provider [phone] Reason for Visit * Reason Onset Date Comments Other 01/11/2021 O2 orders faxed to [phone] Encounter Details Date Type Department Care Team (Late Contact Info) Description 01/11/2021 [place] [address] Desilets, Ernestine Mariano RN Other (O2 orders faxed to [phone]) Social History Tobacco Use Types Packs/Day Years [...] AM EST Hospital Encounter Non-Invasive [place] [address] Arrived documented as of this encounter Visit Diagnoses Not on filedocumented in this encounter Care Teams Mid Level Java Developer Relationship Specialty Start Date End Date Ricki Traylor MD [facility] GENERAL [place] [address] PCP - General General Internal Medicine 05/30/1710/09 documented as of this encounter
--- OUTSIDE RECORDS SUMMARY | 2024-06-16 15:31 | XMS_ITS | Encounter Summary ---
[place] [address] Care Team Providers Care Manager Lvn Name Role Phone Ricki Traylor MD Primary Care Provider [phone] Encounter Details Date Type Department Care Team (Late st Contact Info) Description 05/09/2021 Orders Only Cardiology at [address] [phone] Social History Tobacco Use Types Packs/Day Years Used Date Smoking Tobacco: Former Cigarettes 1 04 09 845 - 2880 Smokeless Tobacco: Never Alcohol Use Standard Drinks/Week [...] AM EST Hospital Encounter Non-[place] [phone] Arrived documented as of this encounter Procedures Procedure Name Priority Date/Time Associated Diagnosis Comments CARDIAC DEVICE CHECK - REMOTE SCHEDULED Routine 05/09/2021 3:21 AM EDT documented in this encounter Results * (ABNORMAL) Cardiac device check - Remote Scheduled (05/09/2021 3:21 AM EDT) Date Time Interrogation Session [id number] IDCO Type Interrogation Session Remote Scheduled IDCO Clinic Name [facility] IDCO Battery Date Time of Measurements [id number] IDCO Battery Status Beginning of Service IDCO Battery Remaining Longevity 54 mo IDCO Battery Remaining Percentage 82 % IDCO Episode Identifier APM-27 IDCO Episode Date Time IDCO Episode Type Category Periodic EGM IDCO Episode Vendor Type Category APMRT IDCO Episode Detection And Therapy Details Presenting EGM IDCO Episode Identifier RAAT-180 IDCO Episode Date Time IDCO Episode Type Category Other IDCO Episode Vendor Type Category IDCO Episode Duration IDCO Episode Detection And Therapy Details RA Auto IDCO Episode Identifier RVAT IDCO Episode Date Time IDCO Episode Type Category Other IDCO Episode Vendor Type Category IDCO Episode Duration IDCO Episode Detection And Therapy Details RV Auto IDCO Episode Identifier ATR-11 IDCO Episode Date Time IDCO Episode Type Category AT/AF IDCO Episode Vendor Type Category ATR IDCO Episode Detection Interval Atrial 857 ms IDCO Episode Duration 2 s IDCO Episode Detection And Therapy Details ATR Avg V Rate in ATR: 73 bpm IDCO Episode Statistic Type Category VT IDCO Episode Statistic Vendor Type Category IDCO Episode Statistic Recent Count 0 IDCO Episode Statistic Recent Date Time Start 20201102 IDCO Episode Statistic Recent Date Time End 20210509 IDCO Episode Statistic Type Category SVT IDCO Episode Statistic Vendor Type Category SVT IDCO Episode Statistic Recent Count 0 IDCO Episode Statistic Recent Date Time Start 20201102 IDCO Episode Statistic Recent Date Time End 20210509 IDCO Episode Statistic Type Category VT IDCO Episode Statistic Vendor Type Category NSVT IDCO Episode Statistic Recent Count 0 IDCO Episode Statistic Recent Date Time Start 20201102 IDCO Episode Statistic Recent Date Time End 20210509 IDCO Episode Statistic Type Category AT/AF IDCO Episode Statistic Vendor Type Category ATR IDCO Episode Statistic Recent Count 1 IDCO Episode Statistic Recent Date Time Start 20201102 IDCO Episode Statistic Recent Date Time End 20210509 IDCO Episode Statistic Type Category Other IDCO Episode Statistic Vendor Type Category IDCO Episode Statistic Recent Count 0 IDCO Episode Statistic Recent Date Time Start 20201102 IDCO Episode Statistic Recent Date Time End 20210509 IDCO Zeferino Setting AT Mode Switch Mode [...] Bipolar IDCO Lead Channel Setting Pacing Amplitude 1.8 V IDCO Lead Channel Setting Pacing Pulse Width 0.4 ms IDCO Lead Channel Setting Pacing Capture Mode Adaptive IDCO Lead Channel Setting Pacing Polarity Bipolar IDCO Zeferino Setting Sensor Type Accelerometer + MV IDCO Implantable Pulse Generator Type Pacemaker IDCO Implantable Pulse Generator Model L311 IDCO Implantable Pulse Generator Serial Number [id number] IDCO Implantable Pulse Generator Surgical Scrub Technician [place] [employer] IDCO Implantable Pulse Generator Implant Date 20170108 IDCO Implantable Lead Model 7741 IDCO Implantable Lead Serial Number [id number] IDCO Implantable Lead Surgical Scrub Technician [place] [employer] IDCO Implantable Lead Implant Date IDCO Implantable Lead Polarity Type Bipolar Lead IDCO Implantable Lead Location Right Atrium IDCO Implantable Lead Model 637121 IDCO Implantable Lead Serial Number [id number] IDCO Implantable Lead Surgical Scrub Technician [place] [employer] IDCO Implantable Lead Implant Date IDCO Implantable Lead Polarity Type Bipolar Lead IDCO Implantable Lead Location Right Ventricle IDCO Lead Channel Measurements Date and Time Start 20210507 IDCO Lead Channel Sensing Intrinsic Amplitude Mean 1.8 mV IDCO Lead Channel Sensing Polarity Bipolar IDCO Lead Channel Pacing Threshold Amplitude 0.7 V IDCO Lead Channel Pacing Threshold Pulse Width 0.4 ms IDCO Lead Channel Pacing Threshold Measurement Method Device Automatic IDCO Lead Channel Pacing Threshold Polarity Bipolar IDCO Lead Channel Impedance Value 637 ohms IDCO Lead Channel Impedance Polarity Bipolar IDCO Lead Channel Measurements Date and Time Start 20210507 IDCO Lead Channel Sensing Intrinsic Amplitude Mean mV IDCO Lead Channel Sensing Polarity Bipolar IDCO Lead Channel Pacing Threshold Amplitude 1.4 V IDCO Lead Channel Pacing Threshold Pulse Width 0.4 ms IDCO Lead Channel Pacing Threshold Measurement Method Device Automatic IDCO Lead Channel Pacing Threshold Polarity Bipolar IDCO Lead Channel Impedance Value 747 ohms IDCO Lead Channel Impedance Polarity Bipolar IDCO Statistic Date Time Start 20201102 IDCO Statistic Date Time End 20210509 IDCO Zeferino Statistic Date Time Start 20201102 IDCO Zeferino Statistic Date Time End 20210509 IDCO Zeferino Statistic RA Percent Paced 31 % IDCO Zeferino Statistic RV Percent Paced 53 % IDCO Atrial Tachy Statistic Date Time Start 20201104 IDCO Atrial Tachy Statistic Date Time End 20210508 IDCO Atrial Tachy Statistic AT/AF [place] Percent 1(<) % IDCO Anatomical Region Laterality Modality Other 05/09/2021 3:21 AM EDT Physician Cardiology IMPLANTABLE CARD IAC DEVICE documented in this encounter Visit Diagnoses Not on filedocumented in this encounter Care Teams Manager Lvn Relationship Specialty Start Date End Date Ricki Traylor MD [facility] [place] [address] PCP - General General Internal Medicine 05/30/1710/09 documented as of this encounter
--- OUTSIDE RECORDS SUMMARY | 2024-06-16 15:31 | XMS_ITS | Encounter Summary ---
Author Organization Formerly [facility] [place] [address] Care Team Providers Care Metalizer Field Operation Name Role Phone Jaylan Quintero MD Primary Care Provider [phone] Encounter Details Date Type Department Care Team (Late st Contact Info) Description 06/12/2022 Orders Only Cardiology at [address] [phone] Social History Tobacco Use Types Packs/Day Years Used Date Smoking Tobacco: Former Cigarettes [phone] Smokeless Tobacco: Never Alcohol Use Standard Drinks/Week [...] AM EST Hospital Encounter Non-[place] [phone] Arrived documented as of this encounter Procedures Procedure Name Priority Date/Time Associated Diagnosis Comments PRO PM INTERROGATION REMOTE UP TO 90 DAYS Routine 07/23/2022 3:49 PM EST CARDIAC DEVICE CHECK - REMOTE Routine 07/12/2022 6:21 AM EST CARDIAC DEVICE CHECK - REMOTE Routine 06/12/2022 6:25 AM EDT CARDIAC DEVICE CHECK - REMOTE SCHEDULED Routine 06/12/2022 3:25 AM EDT documented in this encounter Results * Cardiac Device Check - Remote (07/23/2022 3:49 PM EST) Anatomical Region Laterality Modality Other 07/23/2022 3:49 PM EST Trenton Rutledge MD IMPLANTABLE CARDIAC DEVICE * Cardiac Device Check - Remote (07/12/2022 6:21 AM EST) Anatomical Region Laterality Modality Other 07/12/2022 6:21 AM EST Gabriel Sinha MD IMPLANTABLE CARDIAC DEVICE * Cardiac Device Check - Remote (06/12/2022 6:25 AM EDT) Anatomical Region Laterality Modality Other 06/12/2022 6:25 AM EDT Gabriel Sinha MD IMPLANTABLE CARDIAC DEVICE * (ABNORMAL) Cardiac device check - Remote Scheduled (06/12/2022 3:25 AM EDT) Date Time Interrogation Session IDCO Type Interrogation Session Remote Scheduled IDCO Clinic Name [facility] IDCO Battery Date Time of Measurements IDCO Battery Status Beginning of Service IDCO Battery Remaining Longevity 36 mo IDCO Battery Remaining Percentage 55 % IDCO Episode Identifier APM-33 IDCO Episode Date Time IDCO Episode Type Category Periodic EGM IDCO Episode Vendor Type Category APMRT IDCO Episode Detection And Therapy Details Presenting EGM IDCO Episode Identifier [id number] IDCO Episode Date Time IDCO Episode Type Category Other IDCO Episode Vendor Type Category IDCO Episode Duration IDCO Episode Detection And Therapy Details RV Auto IDCO Episode Identifier [id number] IDCO Episode Date Time IDCO Episode Type Category Other IDCO Episode Vendor Type Category IDCO Episode Duration IDCO Episode Detection And Therapy Details RA Auto IDCO Episode Identifier ATR-20 IDCO Episode Date Time IDCO Episode Type Category AT/AF IDCO Episode Vendor Type Category ATR IDCO Episode Detection Interval Atrial 283 ms IDCO Episode Duration 5 s IDCO Episode Detection And Therapy Details ATR Avg V Rate in ATR: 69 bpm IDCO Episode Identifier ATR-19 IDCO Episode Date Time IDCO Episode Type Category AT/AF IDCO Episode Vendor Type Category ATR IDCO Episode Detection Interval Atrial 682 ms IDCO Episode Duration 1 s IDCO Episode Detection And Therapy Details ATR Avg V Rate in ATR: 89 bpm IDCO Episode Identifier ATR-18 IDCO Episode Date Time [id number] IDCO Episode Type Category AT/AF IDCO Episode Vendor Type Category ATR IDCO Episode Detection Interval Atrial 698 ms IDCO Episode Duration 2 s IDCO Episode Detection And Therapy Details ATR Avg V Rate in ATR: 83 bpm IDCO Episode Statistic Type Category VT IDCO Episode Statistic Vendor Type Category IDCO Episode Statistic Recent Count 0 IDCO Episode Statistic Recent Date Time Start 20211210 IDCO Episode Statistic Recent Date Time End 20220612 IDCO Episode Statistic Type Category SVT IDCO Episode Statistic Vendor Type Category SVT IDCO Episode Statistic Recent Count 0 IDCO Episode Statistic Recent Date Time Start 20211210 IDCO Episode Statistic Recent Date Time End 20220612 IDCO Episode Statistic Type Category VT IDCO Episode Statistic Vendor Type Category NSVT IDCO Episode Statistic Recent Count 0 IDCO Episode Statistic Recent Date Time Start 20211210 IDCO Episode Statistic Recent Date Time End 20220612 IDCO Episode Statistic Type Category AT/AF IDCO Episode Statistic Vendor Type Category ATR IDCO Episode Statistic Recent Count 6 IDCO Episode Statistic Recent Date Time Start 20211210 IDCO Episode Statistic Recent Date Time End 20220612 IDCO Episode Statistic Type Category Other IDCO Episode Statistic Vendor Type Category IDCO Episode Statistic Recent Count 0 IDCO Episode Statistic Recent Date Time Start 20211210 IDCO Episode Statistic Recent Date Time End 20220612 IDCO Zeferino Setting AT Mode Switch Mode DDI IDCO Zeferino Setting AT Mode Switch Rate 170 {beats}/ min IDCO Zeferino Setting Mode (NBG Code) DDDR IDCO Zeferino Setting Lower Rate Limit 60 {beats}/ min IDCO Zeferino Setting Maximum Tracking Rate 130 {beats}/ min IDCO Zeferino Setting Maximum Sensor Rate 130 {beats}/ min IDCO Zeferino Setting FELICITY Delay High 180 ms IDCO Zeferino Setting FELICITY Delay Low 240 ms IDCO Zeferino Setting PAV Delay High 180 ms IDCO Zeferino Setting PAV Delay Low 240 ms IDCO Zone Setting Type Category VT [...] L311 IDCO Implantable Pulse Generator Serial Number [id number] IDCO Implantable Pulse Generator Shop Lead [employer] IDCO Implantable Pulse Generator Implant Date 20170108 IDCO Implantable Lead Model 7741 IDCO Implantable Lead Serial Number [id number] IDCO Implantable Lead Shop Lead [employer] IDCO Implantable Lead Implant Date IDCO Implantable Lead Polarity Type Bipolar Lead IDCO Implantable Lead Location Right Atrium IDCO Implantable Lead Model 600036 IDCO Implantable Lead Serial Number [id number] IDCO Implantable Lead Shop Lead [employer] IDCO Implantable Lead Implant Date IDCO Implantable Lead Polarity Type Bipolar Lead IDCO Implantable Lead Location Right Ventricle IDCO Lead Channel Measurements Date and Time Start 20220610 IDCO Lead Channel Sensing Intrinsic Amplitude Mean 3.5 mV IDCO Lead Channel Sensing Polarity Bipolar IDCO Lead Channel Pacing Threshold Amplitude 0.6 V IDCO Lead Channel Pacing Threshold Pulse Width 0.4 ms IDCO Lead Channel Pacing Threshold Measurement Method Device Automatic IDCO Lead Channel Pacing Threshold Polarity Bipolar IDCO Lead Channel Impedance Value 570 ohms IDCO Lead Channel Impedance Polarity Bipolar IDCO Lead Channel Measurements Date and Time Start 20220610 IDCO Lead Channel Sensing Intrinsic Amplitude Mean mV IDCO Lead Channel Sensing Polarity Bipolar IDCO Lead Channel Pacing Threshold Amplitude 1.2 V IDCO Lead Channel Pacing Threshold Pulse Width 0.4 ms IDCO Lead Channel Pacing Threshold Measurement Method Device Automatic IDCO Lead Channel Pacing Threshold Polarity Bipolar IDCO Lead Channel Impedance Value 733 ohms IDCO Lead Channel Impedance Polarity Bipolar IDCO Statistic Date Time Start 20211210 IDCO Statistic Date Time End 20220612 IDCO Zeferino Statistic Date Time Start 20211210 IDCO Zeferino Statistic Date Time End 20220612 IDCO Zeferino Statistic RA Percent Paced 3 % IDCO Zeferino Statistic RV Percent Paced 97 % IDCO Atrial Tachy Statistic Date Time Start 20211212 IDCO Atrial Tachy Statistic Date Time End 20220611 IDCO Atrial Tachy Statistic AT/AF [place] Percent 1(<) % IDCO Anatomical Region Laterality Modality Other 06/12/2022 3:25 AM EDT Physician Cardiology IMPLANTABLE CARD IAC DEVICE documented in this encounter Visit Diagnoses Not on filedocumented in this encounter Care Teams Metalizer Field Operation Relationship Specialty Start Date End Date Jaylan Quintero MD PCP - General Family Medicine 12/11/21 documented as of this encounter
--- OUTSIDE RECORDS SUMMARY | 2024-06-16 15:31 | XMS_ITS | Encounter Summary ---
[place] [address] Care Team Providers Care Compounding Pharmacy Technician Name Role Phone Ricki Traylor MD Primary Care Provider [phone] Encounter Details Date Type Department Care Team (Late st Contact Info) Description 05/21/2021 Orders Only Cardiology at [address] [phone] Social History Tobacco Use Types Packs/Day Years Used Date Smoking Tobacco: Former Cigarettes 1 04 09 [phone] - [phone] Smokeless Tobacco: Never Alcohol Use Standard Drinks/Week [...] AM EST Hospital Encounter Non-[place] [phone] Arrived documented as of this encounter Procedures Procedure Name Priority Date/Time Associated Diagnosis Comments CARDIAC DEVICE CHECK - REMOTE SCHEDULED Routine 05/21/2021 2:04 PM EDT documented in this encounter Results * (ABNORMAL) Cardiac device check - Remote Scheduled (05/21/2021 2:04 PM EDT) Date Time Interrogation Session [id number] IDCO Type Interrogation Session Remote Scheduled IDCO Clinic Name [facility] IDCO Battery Date Time of Measurements IDCO Battery Status Beginning of Service IDCO Battery Remaining Longevity 48 mo IDCO Battery Remaining Percentage 81 % IDCO Episode Identifier APM-28 IDCO Episode Date Time IDCO Episode Type Category Periodic EGM IDCO Episode Vendor Type Category APMRT IDCO Episode Detection And Therapy Details Presenting EGM IDCO Episode Identifier [id number] IDCO Episode Date Time IDCO Episode Type Category Other IDCO Episode Vendor Type Category IDCO Episode Duration IDCO Episode Detection And Therapy Details RV Auto IDCO Episode Identifier RAAT-182 IDCO Episode Date Time IDCO Episode Type Category Other IDCO Episode Vendor Type Category IDCO Episode Duration IDCO Episode Detection And Therapy Details RA Auto IDCO Episode Statistic Type Category VT IDCO Episode Statistic Vendor Type Category IDCO Episode Statistic Recent Count 0 IDCO Episode Statistic Recent Date Time Start 20201102 IDCO Episode Statistic Recent Date Time End 20210521 IDCO Episode Statistic Type Category SVT IDCO Episode Statistic Vendor Type Category SVT IDCO Episode Statistic Recent Count 0 IDCO Episode Statistic Recent Date Time Start 20201102 IDCO Episode Statistic Recent Date Time End 20210521 IDCO Episode Statistic Type Category VT IDCO Episode Statistic Vendor Type Category NSVT IDCO Episode Statistic Recent Count 0 IDCO Episode Statistic Recent Date Time Start 20201102 IDCO Episode Statistic Recent Date Time End 20210521 IDCO Episode Statistic Type Category AT/AF IDCO Episode Statistic Vendor Type Category ATR IDCO Episode Statistic Recent Count 1 IDCO Episode Statistic Recent Date Time Start 20201102 IDCO Episode Statistic Recent Date Time End 20210521 IDCO Episode Statistic Type Category Other IDCO Episode Statistic Vendor Type Category IDCO Episode Statistic Recent Count 0 IDCO Episode Statistic Recent Date Time Start 20201102 IDCO Episode Statistic Recent Date Time End 20210521 IDCO Zeferino Setting AT Mode Switch Mode [...] L311 IDCO Implantable Pulse Generator Serial Number [id number] IDCO Implantable Pulse Generator Radiology Practitioner Assistant [employer] IDCO Implantable Pulse Generator Implant Date 20170108 IDCO Implantable Lead Model 7741 IDCO Implantable Lead Serial Number [id number] IDCO Implantable Lead Radiology Practitioner Assistant [employer] IDCO Implantable Lead Implant Date IDCO Implantable Lead Polarity Type Bipolar Lead IDCO Implantable Lead Location Right Atrium IDCO Implantable Lead Model 865325 IDCO Implantable Lead Serial Number [id number] IDCO Implantable Lead Radiology Practitioner Assistant [employer] IDCO Implantable Lead Implant Date IDCO Implantable Lead Polarity Type Bipolar Lead IDCO Implantable Lead Location Right Ventricle IDCO Lead Channel Measurements Date and Time Start 20210520 IDCO Lead Channel Sensing Intrinsic Amplitude Mean 2.7 mV IDCO Lead Channel Sensing Polarity Bipolar IDCO Lead Channel Pacing Threshold Amplitude 0.7 V IDCO Lead Channel Pacing Threshold Pulse Width 0.4 ms IDCO Lead Channel Pacing Threshold Measurement Method Device Automatic IDCO Lead Channel Pacing Threshold Polarity Bipolar IDCO Lead Channel Impedance Value 587 ohms IDCO Lead Channel Impedance Polarity Bipolar IDCO Lead Channel Measurements Date and Time Start 20210520 IDCO Lead Channel Sensing Intrinsic Amplitude Mean mV IDCO Lead Channel Sensing Polarity Bipolar IDCO Lead Channel Pacing Threshold Amplitude 1.3 V IDCO Lead Channel Pacing Threshold Pulse Width 0.4 ms IDCO Lead Channel Pacing Threshold Measurement Method Device Automatic IDCO Lead Channel Pacing Threshold Polarity Bipolar IDCO Lead Channel Impedance Value 767 ohms IDCO Lead Channel Impedance Polarity Bipolar IDCO Statistic Date Time Start 20201102 IDCO Statistic Date Time End 20210521 IDCO Zeferino Statistic Date Time Start 20201102 IDCO Zeferino Statistic Date Time End 20210521 IDCO Zeferino Statistic RA Percent Paced 31 % IDCO Zeferino Statistic RV Percent Paced 56 % IDCO Atrial Tachy Statistic Date Time Start 20201104 IDCO Atrial Tachy Statistic Date Time End 20210521 IDCO Atrial Tachy Statistic AT/AF [place] Percent 1(<) % IDCO Anatomical Region Laterality Modality Other 05/21/2021 2:04 PM EDT Physician Cardiology IMPLANTABLE CARD IAC DEVICE documented in this encounter Visit Diagnoses Not on filedocumented in this encounter Care Teams Compounding Pharmacy Technician Relationship Specialty Start Date End Date Ricki Traylor MD [facility] GENER[facility] [place] [address] PCP - General General Internal Medicine 05/30/1710/09 documented as of this encounter
--- OUTSIDE RECORDS SUMMARY | 2024-06-16 15:31 | XMS_ITS | Encounter Summary ---
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 Social History Tobacco Use Types Packs/Day [...] Sign Reading Time Taken Comments Blood Pressure 113/98 12/10/2021 9:46 AM EDT notified Pulse 117 12/10/2021 9:46 AM EDT no tified Temperature - - Respiratory Rate - - Oxygen Saturation 97% 12/10/2021 9:46 AM EDT Inhaled Oxygen Concentration - - Weight - - Height - - Body Mass Index - - documented in this encounter Progress Notes * Rae Graham, RN - 12/10/2021 10:30 AM EDT Images from the original note were not included. Clinical Electrophysiology Device Service Note Vikash Álvarez is a 81 y.o. male who presents today to evaluate shortness of breath, lightheaded feeling and palpitations. He had a pacemaker implanted January 08, 2017 for SSS. He is status post TAVR in January 2017, both performed at [facility].He takes Plavix. He also has history of COPD, CVA, HTN,STEMI, Coronary Stent and visual disturbance. Today he saw Dr Mills and he complains of increased shortness of breath. He is noted to be in highgrade AV block today with no V escape >30 bpm.He stopped his metoprolol ans will have him returnto see Jesi Obregon APRN to see if his symptoms improve. We decreased hs AV delays today with search AV on if he conducts. PCP: Ricki Traylor MD Verse Writer: Dr Mills Final Parameters at implant:( Please obtain lead info at next visit.) Ventricular electrode: Atrial electrode: Pulse generator: Accolade MRI L311 Serial # [id number] January 08, 2017 Settings: DDDR with Rythmiq OFF 60/130 Search AV is on Underlying rhythm: SR 80's with high grade AV block and no V escape >30 bpm Presenting: /MATERIAL PLANNING ANALYST Atrial Lead: P wave: 2.2 mV Impedance: 621 ohms Threshold: 0.9 V @ 0.4 ms Ventricular Lead: R wave:none Impedance: 736 ohms Threshold: 1.1 V @ 0.4 ms Since October Heart rate histograms: Good distribution with some left shifting heart rarely gets above 90 bpm Pacing percentages: AP 20%; MATERIAL PLANNING ANALYST 79 % (2%)He has been 100% V-pacing since Sep 2021 as indicated by Purple line graft- and via remote V-paced 100% since January 2021 Mode switch episodes: <1% for 0.1 minutes VHR: 1 NSVT Jul at 175 bpm over 6 sec duration PACs 10.7 K PVCs 6.3 K Battery voltage: Est 3.5 years remaining Wound assessment: Well healed with good coverage Reprogramming: Iterative changes to assess device function. Plan: Remote in 3 mos. 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 Cardiac pacemaker in situ documented in this encounter Care Teams Dive Master Relationship Specialty Start Date End Date Jaylan Quintero MD PCP - General Family Medicine 12/11/21 documented as of this encounter
--- OUTSIDE RECORDS SUMMARY | 2024-06-16 15:31 | XMS_ITS | Encounter Summary ---
Author Organization [facility] [address] Care Team Providers Care Bond Underwriter Name Role Phone Jaylan Quintero MD Primary Care Provider [phone] Reason for Visit * Reason Comments Medication Refill Encounter Details Date Type Department Care Team (Late st Contact Info) Description 11/30/2020 Refill Dermatology at [facility] [address] [place] [phone] CallJaylan MD [facility] [address] [place] [address] Social History Tobacco Use Types Packs/Day Years [...] AM EST Hospital Encounter Non-Invasive [place] [address] Arrived documented as of this encounter Visit Diagnoses Not on filedocumented in this encounter Care Teams Bond Underwriter Relationship Specialty Start Date End Date Jaylan Quintero MD PCP - General Family Medicine 12/11/21 documented as of this encounter
--- OUTSIDE RECORDS SUMMARY | 2024-06-16 15:31 | XMS_ITS | Encounter Summary ---
Author Organization [facility] Address [facility] [place] [address] Care Team Providers Care Line Mechanic Name Role Phone Ricki Traylor MD Primary Care Provider [phone] Encounter Details Date Type Department Care Team (Late st Contact Info) Description 12/22/2020 Telephone Dermatology at [facility] [address] [place] [address] Laurie Orr MD [facility] [address] [place] [address] Social History Tobacco Use Types Packs/Day Years Used Date Smoking Tobacco: Former Cigarettes 1 25 1 795 - [phone] Smokeless Tobacco: Never Alcohol Use Standard Drinks/Week Comments Yes 1 (1 standard drink = 0.6 oz pur e alcohol) 1-2 drinks per week Sex and Gender Information Value Date Recorded Sex Assigned at Not on file Gender Identity Not on file Sexual Orientation Not on file documented as of this encounter Miscellaneous Notes * Telephone Encounter - Jesi Jones - 12/22/2020 8:29 AM EDT Vikash Álvarez called to request a refill for the triamcinolone (KENALOG) 0.1 % Ointment. Please send to the [facility] in [place], [place]. Best number to reach the patient back is [phone]. * Telephone Encounter - aMrge Gatica - 12/22/2020 8:29 AM EDT Scheduled on 01/10/21 for follow up. documented in this encounter Plan of Treatment Upcoming Encounters Date Type Department Care Team (Late st Contact Info) Description 08/31/2024 10:00 AM [facility] Hospital Encounter Non-[place] [address] Arrived documented as of this encounter Visit Diagnoses Not on filedocumented in this encounter Care Teams Line Mechanic Relationship Specialty Start Date End Date Ricki Traylor MD [facility] GENERAL [place] [address] PCP - General General Internal Medicine 05/30/1710/09 documented as of this encounter
--- OUTSIDE RECORDS SUMMARY | 2024-06-16 15:31 | XMS_ITS | Encounter Summary ---
[place] [address] Care Team Providers Care Desizing Pad Operator Name Role Phone Ricki Traylor MD Primary Care Provider [phone] Encounter Details Date Type Department Care Team (Late st Contact Info) Description 08/22/2021 Orders Only Cardiology at [address] [phone] Social History Tobacco Use Types Packs/Day Years Used Date Smoking Tobacco: Former Cigarettes 1 04 [phone] Smokeless Tobacco: Never Alcohol Use Standard Drinks/Week [...] AM EST Hospital Encounter Non-[place]vasive [place] [phone] Arrived documented as of this encounter Procedures Procedure Name Priority Date/Time Associated Diagnosis Comments CARDIAC DEVICE CHECK - REMOTE SCHEDULED Routine 08/22/2021 3:22 AM EST documented in this encounter Results * (ABNORMAL) Cardiac device check - Remote Scheduled (08/22/2021 3:22 AM EST) Date Time Interrogation Session IDCO Type Interrogation Session Remote Scheduled IDCO Clinic Name [facility] IDCO Battery Date Time of Measurements [id number] IDCO Battery Status Beginning of Service IDCO Battery Remaining Longevity 48 mo IDCO Battery Remaining Percentage 76 % IDCO Episode Identifier APM-29 IDCO Episode Date Time IDCO Episode Type Category Periodic EGM IDCO Episode Vendor Type Category APMRT IDCO Episode Detection And Therapy Details Presenting EGM IDCO Episode Identifier RAAT-[id number] IDCO Episode Date Time IDCO Episode Type Category Other IDCO Episode Vendor Type Category IDCO Episode Duration IDCO Episode Detection And Therapy Details RA Auto IDCO Episode Identifier [id number] IDCO Episode Date Time IDCO Episode Type Category Other IDCO Episode Vendor Type Category IDCO Episode Duration IDCO Episode Detection And Therapy Details RV Auto IDCO Episode Identifier V-5 IDCO Episode Date Time IDCO Episode Type Category VT IDCO Episode Vendor Type Category NSVT IDCO Episode Type Induced Flag NO IDCO Episode Detection Interval Ventricular 343 ms IDCO Episode Duration 17 s IDCO Episode Detection And Therapy Details NonSustV IDCO Episode Identifier ATR-12 IDCO Episode Date Time IDCO Episode Type Category AT/AF IDCO Episode Vendor Type Category ATR IDCO Episode Detection Interval Atrial 984 ms IDCO Episode Duration 1 s IDCO Episode Detection And Therapy Details ATR Avg V Rate in ATR: 63 bpm IDCO Episode Statistic Type Category VT IDCO Episode Statistic Vendor Type Category IDCO Episode Statistic Recent Count 0 IDCO Episode Statistic Recent Date Time Start 20201102 IDCO Episode Statistic Recent Date Time End 20210822 IDCO Episode Statistic Type Category SVT IDCO Episode Statistic Vendor Type Category SVT IDCO Episode Statistic Recent Count 0 IDCO Episode Statistic Recent Date Time Start 20201102 IDCO Episode Statistic Recent Date Time End 20210822 IDCO Episode Statistic Type Category VT IDCO Episode Statistic Vendor Type Category NSVT IDCO Episode Statistic Recent Count 1 IDCO Episode Statistic Recent Date Time Start 20201102 IDCO Episode Statistic Recent Date Time End 20210822 IDCO Episode Statistic Type Category AT/AF IDCO Episode Statistic Vendor Type Category ATR IDCO Episode Statistic Recent Count 2 IDCO Episode Statistic Recent Date Time Start 20201102 IDCO Episode Statistic Recent Date Time End 20210822 IDCO Episode Statistic Type Category Other IDCO Episode Statistic Vendor Type Category IDCO Episode Statistic Recent Count 0 IDCO Episode Statistic Recent Date Time Start 20201102 IDCO Episode Statistic Recent Date Time End 20210822 IDCO Zeferino Setting AT Mode Switch Mode [...] L311 IDCO Implantable Pulse Generator Serial Number [id number] IDCO Implantable Pulse Generator 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 [employer] IDCO Implantable Pulse Generator Implant Date 20170108 IDCO Implantable Lead Model 7741 IDCO Implantable Lead Serial Number [id number] IDCO Implantable Lead 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 [employer] IDCO Implantable Lead Implant Date IDCO Implantable Lead Polarity Type Bipolar Lead IDCO Implantable Lead Location Right Atrium IDCO Implantable Lead Model [id number] IDCO Implantable Lead Serial Number [id number] IDCO Implantable Lead 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 [employer] IDCO Implantable Lead Implant Date IDCO Implantable Lead Polarity Type Bipolar Lead IDCO Implantable Lead Location Right Ventricle IDCO Lead Channel Measurements Date and Time Start 20210820 IDCO Lead Channel Sensing Intrinsic Amplitude Mean 2.8 mV IDCO Lead Channel Sensing Polarity Bipolar IDCO Lead Channel Pacing Threshold Amplitude 0.7 V IDCO Lead Channel Pacing Threshold Pulse Width 0.4 ms IDCO Lead Channel Pacing Threshold Measurement Method Device Automatic IDCO Lead Channel Pacing Threshold Polarity Bipolar IDCO Lead Channel Impedance Value 613 ohms IDCO Lead Channel Impedance Polarity Bipolar IDCO Lead Channel Measurements Date and Time Start 20210820 IDCO Lead Channel Sensing Intrinsic Amplitude Mean mV IDCO Lead Channel Sensing Polarity Bipolar IDCO Lead Channel Pacing Threshold Amplitude 1.3 V IDCO Lead Channel Pacing Threshold Pulse Width 0.4 ms IDCO Lead Channel Pacing Threshold Measurement Method Device Automatic IDCO Lead Channel Pacing Threshold Polarity Bipolar IDCO Lead Channel Impedance Value 725 ohms IDCO Lead Channel Impedance Polarity Bipolar IDCO Statistic Date Time Start 20201102 IDCO Statistic Date Time End 20210822 IDCO Zeferino Statistic Date Time Start 20201102 IDCO Zeferino Statistic Date Time End 20210822 IDCO Zeferino Statistic RA Percent Paced 24 % IDCO Zeferino Statistic RV Percent Paced 71 % IDCO Atrial Tachy Statistic Date Time Start 20201104 IDCO Atrial Tachy Statistic Date Time End 20210821 IDCO Atrial Tachy Statistic AT/AF [place] Percent 1(<) % IDCO Anatomical Region Laterality Modality Other 08/22/2021 3:22 AM EST Physician Cardiology IMPLANTABLE CARD IAC DEVICE documented in this encounter Visit Diagnoses Not on filedocumented in this encounter Care Teams Desizing Pad Operator Relationship Specialty Start Date End Date Ricki Traylor MD [facility] [place] [address] PCP - General General Internal Medicine 05/30/1710/09 documented as of this encounter
--- OUTSIDE RECORDS SUMMARY | 2024-06-16 15:31 | XMS_ITS | Encounter Summary ---
Author Organization [facility] [place] [address] Care Team Providers Care Feature Writer Name Role Phone Unavailable Primary Care Provider Unavailabl e Encounter Details Date Type Department Care Team (Late st Contact Info) Description 12/10/2021 9:20 AM EDT Office Visit Cardiology at [address] [phone] Juan Jose Mills MD [facility] [place] [address] SOB (shortness of breath) Social History Tobacco Use Types Packs/Day Years [...] Time Taken Comments Blood Pressure 113/98 12/10/2021 9:29 AM EDT notified Pulse 117 12/10/2021 9:29 AM EDT notified Temperature - - Respiratory Rate - - Oxygen Saturation 97% 12/10/2021 9:2 9 AM EDT Inhaled Oxygen Concentration - - Weight 87.4 kg (192 lb 9.6 oz) 12/10/2021 9:29 AM EDT Height 172.7 cm (5' 8) 12/10/2021 9:29 AM EDT patient reported Body Mass Index 29.28 12/10/2021 9:29 AM EDT documented in this encounter Progress Notes * Juan Jose Mills MD - 12/10/2021 9:20 AM EDT Images from the original note were not included. [facility] Cardiovascular [facility] [address] , #2 Subjective: Identification Vikash Álvarez is a 81 [address] of [address] Quintero in [facility] with the following cardiovascular issues: 1. Coronary disease----4v CABG in 1994; PCI of SVG in 2013; redo PCI due to ISR in May 2017; PCI ofSVG to OM1 in November [address] Devine 2. Aortic valve disease--- TAVR in December 2016 done at [facility] 3. 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 In January 2021, patient began ventricular pacing nearly all the time. Echocardiogram in October 2021 at [facility] showed normal LV function and a mean gradient of 10. 4. Severe sob--- attributed to lung disease. Normal PCWP and EDP and CI in November 2020. Nl echo in October 2021. Comorbidities ?? COPD on nocturnal O2 (FEV1 < 40%), Dr. Weaver. ?? prostate cancer treated with prostectomy Lives with his in [facility]. 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 Enjoys [place] hunting. Present Illness I last saw him in September 2019. At that point, he had limited exercise tolerance due to dyspnea but was doing some hunting. He did feel better than he had 2 years earlier. Device check showed 45% ventricular pacing. His next visit to cardiology was May 2020 with Zamzam Gamboa at which time he reported severeweakness and shortness of breath for the past 3 months along with teeth and jaw pain and feelings which were reminiscent of symptoms he had before his stent in 2016. This led to a recommendation to proceed with a nuclear stress test. The nuclear stress test was not done until October 2020. This showed normal ejection fraction and no clear ischemia or scar but because of persistent symptoms, plans were made to proceed with right andleft heart catheterization and coronary angiography which was done in November 2020. This showed no evidence of heart failure. Cardiac index was normal and pulmonary capillary wedge pressure was only 6.RA pressure was 5. PA systolic pressure was only 21. 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 This was stented by Dr. Devine. Follow-up visit in late November with Zamzam was notable for continued symptoms of shortness of breath with unfortunately no change after stenting. Pacer check showed only 2% ventricular pacing with good distribution of heart rates. Today, he reports severe dyspnea with almost any activity. He feels he has been doing poorly for 2 years and is going rapidly downhill for the last 2 months. He continues to use oxygen's at night butnot during the daytime. He does take naps and occasionally uses oxygen during the daytime. Recent lab work showed hemoglobin of 12.8 with iron saturation of 33% BUN 30 creatinine 1.4, blood sugar 95 and TSH 1.3. Regarding his advanced lung disease, he has not found inhalers helpful and is found that they have caused nausea. He has been through pulmonary rehab and did not find this helpful. He hasseen Dr. Munoz in the past but has been lost to follow-up. Pacemaker interrogation today shows nearly 100% pacing since January 2021. Medications Current Outpatient Medications: ??? triamcinolone (KENALOG) 0.1 % Ointment, Use 2 times daily to lower extremities for 1 week, takea week off, repeat cycle if needed., Disp: 454 g, Rfl: 0 ??? furosemide (Lasix) 20 mg Tablet, Take 0.5 tablets by mouth daily., Disp: 80 tablet, Rfl: 3 ??? atorvastatin (Lipitor) 40 mg Tablet, Take 1 tablet by mouth every evening., Disp: 90 tablet, Rfl: 3 ??? clopidogreL (Plavix) 75 mg Tablet, Take 1 tablet by mouth daily., Disp: 90 tablet, Rfl: 3 ??? lisinopriL (Prinivil;Zestril) 2.5 mg Tablet, Take 1 tablet by mouth daily. (Patient not taking:Reported on 01/10/2021), Disp: 90 tablet, Rfl: 3 ??? metoprolol [...] Chest pain., Disp: 25 tablet, Rfl: 12 Objective: Physical Exam BP (!) 113/98 (BP Location (NBP): Left arm, Patient Position: Sitting, BP Cuff Sizes: Adult (25-34 cm)) Comment: notified Pulse (!) 117 Comment: MD notified Ht 172.7 cm (5' 8) Comment: patient reported Wt 87.4 kg (192 lb 9.6 oz) SpO2 97% BMI 29.28 kg/m?? , Body mass index is 29.28 kg/m??. On exam is a pleasant but pretty debilitated man who is out of breath moving from chair to table. He also has urinary urgency which makes his breathing more difficult. His skin is warm and dry. Heartrate is regular by pulse. Lungs show diminished air movement but no wheezes or crackles. Venous pressure does not appear elevated. Heart sounds are regular with a split second heart sound. Abdomen soft nontender. No peripheral edema. Labs Date CV Study Major Findings 10/2020 MPS No ischemia or scar. Nl EF. 11/2020 cath RA 5, PA 34/11 (21), PCWP 6. CI 2.8, LVEDP 11. 70% stenosis of SVG to OM1 with no change in symptosm Lab Results Component Value Date NA 140 11/16/2020 K 4.8 11/16/2020 CL 102 11/16/2020 CO2 30 11/16/2020 BUN 26 (H) 11/16/2020 CREATININE 1.07 11/16/2020 CHLPL 139 06/26/2017 HDL 46 06/26/2017 CHOLHDL 3.0 06/26/2017 Assessment I think his dyspnea is related to lung disease. Although he is at risk for pacer induced cardiomyopathy with 100% ventricular pacing, an echocardiogram done in October after 9 months of ventricular pacing shows no evidence of cardiomyopathy. His right heart cath done last November for similar symptoms showed no evidence of heart failure. It is possible anemia is playing some role. It is possible metopr olol is interfering with AV conduction although it is a low-dose of only 20 mg. His valve is functioning well but is done the echo just done in October. I see no evidence of volume overload. Plan ??? Stop metoprolol to allow more intrinsic conduction though may not be enough ??? CBC and proBNP ??? Referral back to Dr. Munoz ??? Where share note with Dr. Quintero. Follow up in 2-3 weeks with Janine for follow up off metoprolol. Juan Jose Mills MD [facility] Cardiovascular Medicine Total time spent on review of records prior to appointment, face to face time with patient during visit, documentation, border guard, and coordination of care with other clinicians: 35 minutes. cc: documented in this encounter Plan of Treatment Upcoming Encounters Date Type Department Care Team (Late st Contact Info) Description 08/31/2024 10:00 AM EST Hospital Encounter Non-[place] [address] Arrived documented as of this encounter Procedures Procedure Name Priority Date/Time Associated Diagnosis Comments HEMOGRAM Routine 12/10/2021 11:32 AM EDT SOB (shortness of breath) DIFFERENTIAL, AUTOMATED Routine 12/10/2021 11:32 AM EDT SOB (shortness of breath) HC CBC,PLT & AUTO DIFF Routine 12/10/2021 11:32 AM EDT SOB (shortness of breath) HC PROBNP Routine 12/10/2021 11:32 AM EDT SOB (shortness of breath) EKG 12-LEAD Routine 12/10/2021 10:04 AM EDT SOB (shortness of breath) documented in this encounter Results * Differential, Automated (12/10/2021 11:32 AM EDT) Neutrophil % 73.6 % [facility] Neutrophil Absolute 5.31 1.70 - 6.10 x10(3)/[facility] Lymph % 14.0 % [facility] Lymphocytes Abs 1.0 0.9 - 3.2 x10(3)/[facility] Monocyte % 10.7 % [facility] Monocyte Abs 0.8 0.3 - 0.9 x10(3)/[facility] Eos % 1.1 % [facility] Eosinophils Abs 0.1 0.0 - 0.4 x10(3)/[facility] Basophil % 0.3 % [facility] Baso Absolute 0.0 0.0 - 0.1 x10(3)/[facility] Immature Gran % 0.30 % [facility] Comment: Immature granulocytes(IG's)percentage and absolute count will include metamyelocytes, myelocytes, and promyelocytes. Blood smears from CBCs yielding IG's will be scanned manually for concordance. If this scan disagrees with the automated IG or if promyelocytes are noted, a manual differential will be performed. Immature Gran Absolute 0.02 0.00 - 0.04 x10(3)/[facility] Blood 12/10/2021 11:3 2 AM EDT 12/10/2021 11:41 AM EDT Narrative Resulting Agency Comment Spec In Lab Juan Jose Mills MD HEMATOLOGY ORDERABLE S [facility] [place] [address] * (ABNORMAL) Hemogram (12/10/2021 11:32 AM EDT) White Blood Cell 7.2 4.0 - 9.5 x10(3)/ L [facility] Red Blood Cell 3.71(L) 4.58 - 5.54 x10(6)/ L [facility] Hemoglobin 11.8(L) 13.7 - 16.5 g/dL [facility] Hematocrit 36.5(L) 40.5 - 48.5 % [facility] Mean Cell Volume 98.4(H) 82.9 - 93.1 fL [facility] Mean Cell Hemoglobin 31.8 27.5 - 32.1 pg [facility] Mean Cell Hemoglobin Concentration 32.3 32.0 - 35.7 g/dL [facility] Platelet 190 145 - 357 x10(3)/mc L [facility] RDW Standard Deviation 47.9(H) 36.0 - 45.0 fL [facility] RDW coefficient of variation 13.2 11.4 - 13.8 % [facility] Mean Platelet Volume 8.7 7.6 - 12.9 [facility] NRBC% auto 0.0 % [facility] NRBC Absolute 0.000 0.000 - 0.000 x10(3)/mc L [facility] Blood 12/10/2021 11:3 2 AM EDT 12/10/2021 11:41 AM EDT Narrative Resulting Agency Comment Spec In Lab Juan Jose Mills MD HEMATOLOGY ORDERABLE S Performing Organization Address City/[facility]/ZIP Co de Phone Number [facility] [place] [address] * (ABNORMAL) pro-Brain Natriuretic Peptide (12/10/2021 11:32 AM EDT) NT-proBNP 615(H) <=449 pg/mL [facility] Blood 12/10/2021 11:3 2 AM EDT 12/10/2021 11:41 AM EDT Narrative Resulting Agency Comment Spec In Lab Juan Jose Mills MD CHEMISTRY ORDERABLES Performing Organization Address [facility]/ZIP Co de Phone Number [facility] [place] [address] * EKG 12 Lead (12/10/2021 10:04 AM EDT) Ventricular rate 70 BPM MUSE SYSTEM Atrial Rate 70 BPM MUSE SYSTEM P-R Interval 270 ms MUSE SYSTEM QRS Duration 150 ms MUSE SYSTEM Q-T Interval 428 ms MUSE SYSTEM QTC Calculated (Bezet) 462 ms MUSE SYSTEM Calculated P [place] -8 degrees MUSE SYSTEM Calculated R [place] -39 degrees MUSE SYSTEM Calculated T [place] 118 degrees MUSE SYSTEM INTERPRETATION Atrial-sensed ventricular-pa pema rhythm with prolonged AV conduction Abnormal ECG When compared with ECG of 16-NOV-2020 15:50, Electronic ventricular pacemaker has replaced Sinus rhythm Confirmed by MD Amadou, Miko Ybarra (1951) on 12/10/2021 12:04:32 PM MUSE SYSTEM 12/10/2021 10:0 4 AM EDT 12/10/2021 12:04 PM EDT Juan Jose Mills MD ECG ORDERABLES MUSE SYSTEM documented in this encounter Visit Diagnoses Diagnosis SOB (shortness of breath) Shortness of breath documented in this encounter
--- OUTSIDE RECORDS SUMMARY | 2024-06-16 15:31 | XMS_ITS | Encounter Summary ---
[place] [address] Care Team Providers Care Community Life Director Name Role Phone Jaylan Quintero MD Primary Care Provider [phone] Encounter Details Date Type Department Care Team (Late st Contact Info) Description 03/13/2022 Orders Only Cardiology at [address] [phone] Social History Tobacco Use Types Packs/Day Years Used Date Smoking Tobacco: Former Cigarettes 1 04 09 [phone] Smokeless Tobacco: Never Alcohol Use Standard Drinks/Week [...] AM EST Hospital Encounter [place] [phone] Arrived documented as of this encounter Procedures Procedure Name Priority Date/Time Associated Diagnosis Comments CARDIAC DEVICE CHECK - REMOTE SCHEDULED Routine 03/13/2022 3:22 AM EDT documented in this encounter Results * (ABNORMAL) Cardiac device check - Remote Scheduled (03/13/2022 3:22 AM EDT) Date Time Interrogation Session IDCO Type Interrogation Session Remote Scheduled IDCO Clinic Name [facility] IDCO Battery Date Time of Measurements IDCO Battery Status Beginning of Service IDCO Battery Remaining Longevity 36 mo IDCO Battery Remaining Percentage 62 % IDCO Episode Identifier APM-32 IDCO Episode Date Time IDCO Episode Type Category Periodic EGM IDCO Episode Vendor Type Category APMRT IDCO Episode Detection And Therapy Details Presenting EGM IDCO Episode Identifier [id number] IDCO Episode Date Time IDCO Episode Type Category Other IDCO Episode Vendor Type Category IDCO Episode Duration IDCO Episode Detection And Therapy Details RA Auto IDCO Episode Identifier [id number] IDCO Episode Date Time IDCO Episode Type Category Other IDCO Episode Vendor Type Category IDCO Episode Duration IDCO Episode Detection And Therapy Details RV Auto IDCO Episode Identifier ATR-17 IDCO Episode Date Time IDCO Episode Type Category AT/AF IDCO Episode Vendor Type Category ATR IDCO Episode Detection Interval Atrial 674 ms IDCO Episode Duration IDCO Episode Detection And Therapy Details ATR Avg V Rate in ATR: 90 bpm IDCO Episode Identifier ATR-16 IDCO Episode Date Time IDCO Episode Type Category AT/AF IDCO Episode Vendor Type Category ATR IDCO Episode Detection Interval Atrial 741 ms IDCO Episode Duration IDCO Episode Detection And Therapy Details ATR Avg V Rate in ATR: 82 bpm IDCO Episode Identifier ATR-15 IDCO Episode Date Time IDCO Episode Type Category AT/AF IDCO Episode Vendor Type Category ATR IDCO Episode Detection Interval Atrial 566 ms IDCO Episode Duration 2 s IDCO Episode Detection And Therapy Details ATR Avg V Rate in ATR: 100 bpm IDCO Episode Statistic Type Category VT IDCO Episode Statistic Vendor Type Category IDCO Episode Statistic Recent Count 0 IDCO Episode Statistic Recent Date Time Start 20211210 IDCO Episode Statistic Recent Date Time End 20220313 IDCO Episode Statistic Type Category SVT IDCO Episode Statistic Vendor Type Category SVT IDCO Episode Statistic Recent Count 0 IDCO Episode Statistic Recent Date Time Start 20211210 IDCO Episode Statistic Recent Date Time End 20220313 IDCO Episode Statistic Type Category VT IDCO Episode Statistic Vendor Type Category NSVT IDCO Episode Statistic Recent Count 0 IDCO Episode Statistic Recent Date Time Start 20211210 IDCO Episode Statistic Recent Date Time End 20220313 IDCO Episode Statistic Type Category AT/AF IDCO Episode Statistic Vendor Type Category ATR IDCO Episode Statistic Recent Count 3 IDCO Episode Statistic Recent Date Time Start 20211210 IDCO Episode Statistic Recent Date Time End 20220313 IDCO Episode Statistic Type Category Other IDCO Episode Statistic Vendor Type Category IDCO Episode Statistic Recent Count 0 IDCO Episode Statistic Recent Date Time Start 20211210 IDCO Episode Statistic Recent Date Time End 20220313 IDCO Zeferino Setting AT Mode Switch Mode [...] L311 IDCO Implantable Pulse Generator Serial Number [id number] IDCO Implantable Pulse Generator Lpn Private Duty [employer] IDCO Implantable Pulse Generator Implant Date 20170108 IDCO Implantable Lead Model 7741 IDCO Implantable Lead Serial Number [id number] IDCO Implantable Lead Lpn Private Duty [employer] IDCO Implantable Lead Implant Date IDCO Implantable Lead Polarity Type Bipolar Lead IDCO Implantable Lead Location Right Atrium IDCO Implantable Lead Model 124036 IDCO Implantable Lead Serial Number [id number] IDCO Implantable Lead Lpn Private Duty [employer] IDCO Implantable Lead Implant Date IDCO Implantable Lead Polarity Type Bipolar Lead IDCO Implantable Lead Location Right Ventricle IDCO Lead Channel Measurements Date and Time Start 20220311 IDCO Lead Channel Sensing Intrinsic Amplitude Mean 2.2 mV IDCO Lead Channel Sensing Polarity Bipolar IDCO Lead Channel Pacing Threshold Amplitude 0.5 V IDCO Lead Channel Pacing Threshold Pulse Width 0.4 ms IDCO Lead Channel Pacing Threshold Measurement Method Device Automatic IDCO Lead Channel Pacing Threshold Polarity Bipolar IDCO Lead Channel Impedance Value 599 ohms IDCO Lead Channel Impedance Polarity Bipolar IDCO Lead Channel Measurements Date and Time Start 20220311 IDCO Lead Channel Sensing Intrinsic Amplitude Mean mV IDCO Lead Channel Sensing Polarity Bipolar IDCO Lead Channel Pacing Threshold Amplitude 1.2 V IDCO Lead Channel Pacing Threshold Pulse Width 0.4 ms IDCO Lead Channel Pacing Threshold Measurement Method Device Automatic IDCO Lead Channel Pacing Threshold Polarity Bipolar IDCO Lead Channel Impedance Value 699 ohms IDCO Lead Channel Impedance Polarity Bipolar IDCO Statistic Date Time Start 20211210 IDCO Statistic Date Time End 20220313 IDCO Zeferino Statistic Date Time Start 20211210 IDCO Zeferino Statistic Date Time End 20220313 IDCO Zeferino Statistic RA Percent Paced 4 % IDCO Zeferino Statistic RV Percent Paced 100 % IDCO Atrial Tachy Statistic Date Time Start 20211212 IDCO Atrial Tachy Statistic Date Time End 20220312 IDCO Atrial Tachy Statistic AT/AF [place] Percent 1(<) % IDCO Anatomical Region Laterality Modality Other 03/13/2022 3:22 AM EDT Physician Cardiology IMPLANTABLE CARD IAC DEVICE documented in this encounter Visit Diagnoses Not on filedocumented in this encounter Care Teams Community Life Director Relationship Specialty Start Date End Date Jaylan Quintero MD PCP - General Family Medicine 12/11/21 documented as of this encounter
--- OUTSIDE RECORDS SUMMARY | 2024-06-16 15:31 | XMS_ITS | Encounter Summary ---
Author Organization [facility] [place] [address] Care Team Providers Care Nuclear Fuels Reclamation Engineer Name Role Phone Jaylan Quintero MD Primary Care Provider [phone] Encounter Details Date Type Department Care Team (Latest Contact Info) Description 09/10/2022 10:00 AM EST - 09/10/2022 11:59 PM EST Hospital Encounter [place] [phone] Discharge Disposition: Home Social History Tobacco Use [...] [facility] Hospital Encounter [place] [address] Arrived documented as of this encounter Visit Diagnoses Not on filedocumented in this encounter Care Teams Nuclear Fuels Reclamation Engineer Relationship Specialty Start Date End Date Jaylan Quintero MD PCP - General Family Medicine 12/11/21 documented as of this encounter
--- OUTSIDE RECORDS SUMMARY | 2024-06-16 15:31 | XMS_ITS | Encounter Summary ---
Author Organization [facility] [place] [address] Care Team Providers Care Passenger Vessel Chef Name Role Phone Jalyan Quintero MD Primary Care Provider [phone] Encounter Details Date Type Department Care Team (Latest Contact Info) Description 09/11/2022 10:00 AM EST - 09/11/2022 11:59 PM [facility] Encounter Non[place] [phone] Discharge Disposition: Home Social History Tobacco Use [...] st Contact Info) Description 08/31/2024 10:00 AM [facility] Hospital Encounter Non[place] [address] Arrived documented as of this encounter Visit Diagnoses Not on filedocumented in this encounter Care Teams Passenger Vessel Chef Relationship Specialty Start Date End Date Jaylan Quintero MD PCP - General Family Medicine 12/11/21 documented as of this encounter
--- OUTSIDE RECORDS SUMMARY | 2024-06-16 15:31 | XMS_ITS | Encounter Summary ---
Author Organization [facility] Address [facility] [place] [address] Care Team Providers Care Client Director Name Role Phone Jaylan Quintero MD Primary Care Provider [phone] Encounter Details Date Type Department Care Team (Late st Contact Info) Description 01/04/2022 1:30 PM EDT Office Visit Cardiology at [address] [phone] Jesi Obregon, [facility] [place] [address] Pacemaker; Bradycardia; MINOR (dyspnea on exertion) Social History Tobacco Use Types Packs/Day Years [...] Sign Reading Time Taken Comments Blood Pressure 104/65 01/04/2022 1:41 PM EDT Pulse 92 01/04/2022 1:41 PM EDT Temperature - - Respiratory Rate - - Oxygen Saturation 97% 01/04/2022 1:41 PM EDT Inhaled Oxygen Concentration - - Weight 82.8 kg (182 lb 9.6 oz) 01/04/2022 1:41 P M EDT Height 172.7 cm (5' 8) 01/04/2022 1:41 PM EDT R eported Body Mass Index 27.76 01/04/2022 1:41 PM EDT documented in this encounter Progress Notes * Jesi Obregon, DITCH DIGGER - 01/04/2022 1:30 PM EDT Images from the original note were not included. [facility] [address] [address] , #2 Subjective: Identification Vikash Álvarez is a [address] Quintero in [facility] with the following cardiovascular issues: 1. Coronary disease----4v CABG in 1994; PCI of SVG in 2013; redo PCI due to ISR in May 2017; PCI ofSVG to OM1 in November [address] Devine 2. Aortic valve disease--- TAVR in December 2016 done at [facility] 3. 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 In January 2021, patient began ventricular pacing nearly all the time. Echocardiogram in October 2021 at [facility] showed normal LV function and a mean gradient of 10. 4. Severe sob--- attributed to lung disease. Normal PCWP and EDP and CI in November 2020. Nl echo in October 2021. Comorbidities ?? COPD on nocturnal O2 (FEV1 < 40%), Dr. Weaver. ?? prostate cancer treated with prostectomy Lives with his in [facility]. 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 Enjoys [employer] hunting. Present Illness Here for prompt f/u after recent visit with Dr Mills. Prior records reviewed. Concerns for FC III MINOR. Metoprolol DCd in order to allow less PAPER COATER and more intrinsic conduction. Pt Does not think that this has made much difference, but he is not worse. No CP, syncope, presyncope. Using O2 at night and occ when he lays down during the day. Weight stable, no edema Medications Current Outpatient Medications: ??? triamcinolone (KENALOG) [...] daily., Disp: 90 tablet, Rfl: 3 ??? aspirin 81 mg [...] tablet, Rfl: 12 Objective: Physical Exam BP 104/65 (Patient Position: Sitting) Pulse 92 Ht 172.7 cm (5' 8) Comment: Reported Wt 82.8 kg (182 lb 9.6 oz) SpO2 97% BMI 27.76 kg/m?? , Body mass index is 27.76 kg/m??. pleasant and here with . Out of breath just moving from chair. O2 sat 96% RA at rest. Walked down clinic josé and back with significant MINOR and O2 sat down to 83%. Took 5 minutes to achieve > 90% with rest. JVP not elevated. Lungs Clear. Sl irreg rate and rhythm. No LE edema Labs Date CV Study Major Findings 10/2020 [...] 06/26/2017 ProBNP Date Value Ref Range Status 12/10/2021 615 (H) <=449 pg/mL Final 05/12/2020 310 <=450 pg/mL Final 05/18/2017 384 <=450 pg/mL Final Assessment I agree with Dr Mills. His CV issues (AoV function, rhythm, filling pressures, recent stress test,proBNP only mildly elevated)) are stable. His HR has increased by EKG with the absence of BB. Awaiting f/u with pulmonary Plan Continue current medical regimen F/U with pulmonary F/U with cardiology 6 months Use O2 with exertion to keep sats > 90% JESI OBREGON APRN cc: documented in this encounter Plan of Treatment Upcoming Encounters Date Type Department Care Team (Late st Contact Info) Description 08/31/2024 10:00 AM [facility] Hospital Encounter Non-[place]vasive [place] [address] Arrived documented as of this encounter Procedures Procedure Name Priority Date/Time Associated Diagnosis Comments EKG 12-LEAD Routine 01/04/2022 1:47 PM EDT Pacemaker Bradycardia documented in this encounter Results * EKG 12 Lead (01/04/2022 1:47 PM EDT) Ventricular rate 88 BPM MUSE SYSTEM Atrial Rate 88 BPM MUSE SYSTEM P-R Interval 384 ms MUSE SYSTEM QRS Duration 144 ms MUSE SYSTEM Q-T Interval 406 ms MUSE SYSTEM QTC Calculated (Bezet) 491 ms MUSE SYSTEM Calculated P [place] 6 degrees MUSE SYSTEM Calculated R [place] -31 degrees MUSE SYSTEM Calculated T [place] 76 degrees MUSE SYSTEM INTERPRETATION Atrial-sensed ventricular-p aced rhythm with prolonged AV conduction Abnormal ECG When compared with ECG of 10-DEC-2021 10:04, Vent. rate has increased BY ??18 BPM Confirmed by MD VANIA, BERENICE ([id number]) on 01/04/2022 2:34:46 PM MUSE SYSTEM 01/04/2022 1:47 PM EDT 01/04/2022 2:34 PM EDT Jesi Obregon APRN ECG ORDERABLES MUSE SYSTEM documented in this encounter Visit Diagnoses Diagnosis Pacemaker Cardiac pacemaker in situ Bradycardia Other specified cardiac dysrhythmias MINOR (dyspnea on exertion) Other dyspnea and respiratory abnormality documented in this encounter Care Teams Client Director Relationship Specialty Start Date End Date Jaylan Quintero MD PCP - General Family Medicine 12/11/21 documented as of this encounter
--- OUTSIDE RECORDS SUMMARY | 2024-06-16 15:31 | XMS_ITS | Encounter Summary ---
Author Organization [facility] Address [facility] [place] [address] Care Team Providers Care Tax Form Preparer Name Role Phone Ricki Traylor MD Primary Care Provider [phone] Encounter Details Date Type Department Care Team (Latest Contact Info) Description 02/07/2021 7:36 AM EDT - 02/07/2021 11:59 PM EDT Hospital Encounter Non-[place] [phone] Trenton Rutledge MD [facility] [place] [address] Sick sinus syndrome Discharge Disposition: Home Social [...] AM EST Hospital Encounter Non-[place] [address] Arrived documented as of this encounter Procedures Procedure Name Priority Date/Time Associated Diagnosis Comments PCM INTERROGATION 3 MONTH Routine 02/07/2021 7:38 AM EDT Sick sinus syndrome documented in this encounter Results * PCM INTERROGATION 3 MONTH (02/07/2021 7:38 AM EDT) Anatomical Region Laterality Modality Other Narrative 02/13/2021 12:43 PM EDT [facility] DDD PPM remote reviewed. Normal device function. Trenton Rutledge MD [facility] Cardiac Electrophysiology 02/13/2021 12:43 PM Trenton Rutledge MD IMPLANTABLE CARDIAC DEVICE documented in this encounter Visit Diagnoses Diagnosis Sick sinus syndrome Sinoatrial node dysfunction documented in this encounter Care Teams Tax Form Preparer Relationship Specialty Start Date End Date Ricki Traylor MD [facility] [place] [address] PCP - General General Internal Medicine 05/30/1710/09 documented as of this encounter
--- OUTSIDE RECORDS SUMMARY | 2024-06-16 15:31 | XMS_ITS | Encounter Summary ---
[place] [address] Care Team Providers Care Manager Apple Name Role Phone Jaylan Quintero MD Primary Care Provider [phone] Encounter Details Date Type Department Care Team (Latest Contact Info) Description 06/08/2023 10:00 AM EDT - 06/08/2023 11:59 PM EDT Hospital Encounter Non-[place] [phone] Discharge Disposition: Home Social History Tobacco Use [...] st Contact Info) Description 08/31/2024 10:00 AM [facility] Hospital Encounter Non-[place] [address] Arrived documented as of this encounter Procedures Procedure Name Priority Date/Time Associated Diagnosis Comments PRO PM INTERROGATION REMOTE UP TO 90 DAYS Routine 04/22/2023 6:21 AM EDT documented in this encounter Results * Cardiac Device Check - Remote (04/22/2023 6:21 AM EDT) Anatomical Region Laterality Modality Other 04/22/2023 6:21 AM EDT Trenton Rutledge MD IMPLANTABLE CARDIAC DEVICE documented in this encounter Visit Diagnoses Not on filedocumented in this encounter Care Teams Manager Apple Relationship Specialty Start Date End Date Jaylan Quintero MD PCP - General Family Medicine 12/11/21 documented as of this encounter
--- OUTSIDE RECORDS SUMMARY | 2024-06-16 15:31 | XMS_ITS | Encounter Summary ---
Author Organization [facility] [place] [address] Care Team Providers Care Principal Scientist Name Role Phone Jaylan Quintero MD Primary Care Provider [phone] Encounter Details Date Type Department Care Team (Latest Contact Info) Description 09/06/2023 10:00 AM EST - 09/06/2023 11:59 PM EST Hospital Encounter Non-[place] [phone] Discharge Disposition: Home Social History Tobacco Use Types Packs/Day Years Used Date Smoking Tobacco: Former Cigarettes 09 04 1 955 - 1979 Smokeless Tobacco: Never [...] AM EST Hospital Encounter Non-Invasive [place] [address] Arrived documented as of this encounter Procedures Procedure Name Priority Date/Time Associated Diagnosis Comments PRO PM INTERROGATION REMOTE UP TO 90 DAYS Routine 07/10/2023 6:25 AM EST documented in this encounter Results * Cardiac Device Check - Remote (07/10/2023 6:25 AM EST) Anatomical Region Laterality Modality Other 07/10/2023 6:25 AM EST Josh Flores MD IMPLANTABLE CARDIAC DEVICE documented in this encounter Visit Diagnoses Not on filedocumented in this encounter Care Teams Principal Scientist Relationship Specialty Start Date End Date Jaylan Quintero MD PCP - General Family Medicine 12/11/21 documented as of this encounter
--- OUTSIDE RECORDS SUMMARY | 2024-06-16 15:31 | XMS_ITS | Encounter Summary ---
Author Organization [place] [address] Care Team Providers Care Turf Keeper Name Role Phone Jaylan Quintero MD Primary Care Provider [phone] Reason for Visit * Reason Comments Medication Refill Encounter Details Date Type Department Care Team (Late st Contact Info) Description 12/25/2020 Refill Dermatology at [facility] [address] [place] [address] CallJaylan MD [facility] [address] [address] Social History Tobacco Use Types Packs/Day Years [...] AM EST Hospital Encounter Non-[place] [address] Arrived documented as of this encounter Visit Diagnoses Not on filedocumented in this encounter Care Teams Turf Keeper Relationship Specialty Start Date End Date Jaylan Quintero MD PCP - General Family Medicine 12/11/21 documented as of this encounter
--- OUTSIDE RECORDS SUMMARY | 2024-06-16 15:31 | XMS_ITS | Encounter Summary ---
[place] [address] Care Team Providers Care Director Market Intelligence Name Role Phone Ricki Traylor MD Primary Care Provider [phone] Encounter Details Date Type Department Care Team (Late st Contact Info) Description 02/07/2021 Orders Only Cardiology at [address] [phone] Social History Tobacco Use Types Packs/Day Years Used Date Smoking Tobacco: Former Cigarettes 1 04 09 145 - 5021 Smokeless Tobacco: Never Alcohol Use Standard Drinks/Week [...] AM EST Hospital Encounter [place] [phone] Arrived documented as of this encounter Procedures Procedure Name Priority Date/Time Associated Diagnosis Comments CARDIAC DEVICE CHECK - REMOTE SCHEDULED Routine 02/07/2021 3:21 AM EDT documented in this encounter Results * Cardiac device check - Remote Scheduled (02/07/2021 3:21 AM EDT) Date Time Interrogation Session IDCO Type Interrogation Session Remote Scheduled IDCO Clinic Name [facility] IDCO Battery Date Time of Measurements [id number] IDCO Battery Status Beginning of Service IDCO Battery Remaining Longevity 54 mo IDCO Battery Remaining Percentage 88 % IDCO Episode Identifier [id number] IDCO Episode Date Time IDCO Episode Type Category Periodic EGM IDCO Episode Vendor Type Category APMRT IDCO Episode Detection And Therapy Details Presenting EGM IDCO Episode Identifier [id number] IDCO Episode Date Time IDCO Episode Type Category Other IDCO Episode Vendor Type Category IDCO Episode Duration IDCO Episode Detection And Therapy Details RA Auto IDCO Episode Identifier [id number] IDCO Episode Date Time IDCO Episode Type Category Other IDCO Episode Vendor Type Category IDCO Episode Duration IDCO Episode Detection And Therapy Details RV Auto IDCO Episode Statistic Type Category VT IDCO Episode Statistic Vendor Type Category IDCO Episode Statistic Recent Count 0 IDCO Episode Statistic Recent Date Time Start 20201102 IDCO Episode Statistic Recent Date Time End 20210207 IDCO Episode Statistic Type Category SVT IDCO Episode Statistic Vendor Type Category SVT IDCO Episode Statistic Recent Count 0 IDCO Episode Statistic Recent Date Time Start 20201102 IDCO Episode Statistic Recent Date Time End 20210207 IDCO Episode Statistic Type Category VT IDCO Episode Statistic Vendor Type Category NSVT IDCO Episode Statistic Recent Count 0 IDCO Episode Statistic Recent Date Time Start 20201102 IDCO Episode Statistic Recent Date Time End 20210207 IDCO Episode Statistic Type Category AT/AF IDCO Episode Statistic Vendor Type Category ATR IDCO Episode Statistic Recent Count 0 IDCO Episode Statistic Recent Date Time Start 20201102 IDCO Episode Statistic Recent Date Time End 20210207 IDCO Episode Statistic Type Category Other IDCO Episode Statistic Vendor Type Category IDCO Episode Statistic Recent Count 0 IDCO Episode Statistic Recent Date Time Start 20201102 IDCO Episode Statistic Recent Date Time End 20210207 IDCO Zeferino Setting AT Mode Switch Mode [...] Bipolar IDCO Lead Channel Setting Pacing Amplitude 1.9 V IDCO Lead Channel Setting Pacing Pulse Width 0.4 ms IDCO Lead Channel Setting Pacing Capture Mode Adaptive IDCO Lead Channel Setting Pacing Polarity Bipolar IDCO Zeferino Setting Sensor Type Accelerometer + MV IDCO Implantable Pulse Generator Type Pacemaker IDCO Implantable Pulse Generator Model L311 IDCO Implantable Pulse Generator Serial Number [id number] IDCO Implantable Pulse Generator Software Support Specialist [employer] IDCO Implantable Pulse Generator Implant Date 20170108 IDCO Implantable Lead Model 7741 IDCO Implantable Lead Serial Number [id number] IDCO Implantable Lead Software Support Specialist [employer] IDCO Implantable Lead Implant Date IDCO Implantable Lead Polarity Type Bipolar Lead IDCO Implantable Lead Location Right Atrium IDCO Implantable Lead Model [id number] IDCO Implantable Lead Serial Number [id number] IDCO Implantable Lead Software Support Specialist [employer] IDCO Implantable Lead Implant Date IDCO Implantable Lead Polarity Type Bipolar Lead IDCO Implantable Lead Location Right Ventricle IDCO Lead Channel Measurements Date and Time Start 20210205 IDCO Lead Channel Sensing Intrinsic Amplitude Mean 2.1 mV IDCO Lead Channel Sensing Polarity Bipolar IDCO Lead Channel Pacing Threshold Amplitude 0.7 V IDCO Lead Channel Pacing Threshold Pulse Width 0.4 ms IDCO Lead Channel Pacing Threshold Measurement Method Device Automatic IDCO Lead Channel Pacing Threshold Polarity Bipolar IDCO Lead Channel Impedance Value 593 ohms IDCO Lead Channel Impedance Polarity Bipolar IDCO Lead Channel Measurements Date and Time Start 20210205 IDCO Lead Channel Sensing Intrinsic Amplitude Mean mV IDCO Lead Channel Sensing Polarity Bipolar IDCO Lead Channel Pacing Threshold Amplitude 1.5 V IDCO Lead Channel Pacing Threshold Pulse Width 0.4 ms IDCO Lead Channel Pacing Threshold Measurement Method Device Automatic IDCO Lead Channel Pacing Threshold Polarity Bipolar IDCO Lead Channel Impedance Value 742 ohms IDCO Lead Channel Impedance Polarity Bipolar IDCO Statistic Date Time Start 20201102 IDCO Statistic Date Time End 20210207 IDCO Zeferino Statistic Date Time Start 20201102 IDCO Zeferino Statistic Date Time End 20210207 IDCO Zeferino Statistic RA Percent Paced 29 % IDCO Zeferino Statistic RV Percent Paced 10 % IDCO Atrial Tachy Statistic Date Time Start 20201104 IDCO Atrial Tachy Statistic Date Time End 20210206 IDCO Atrial Tachy Statistic AT/AF [place] Percent 0 % IDCO Anatomical Region Laterality Modality Other 02/07/2021 3:21 AM EDT Physician Cardiology IMPLANTABLE CARD IAC DEVICE documented in this encounter Visit Diagnoses Not on filedocumented in this encounter Care Teams Director Market Intelligence Relationship Specialty Start Date End Date Ricki Traylor MD [facility] [place] [address] PCP - General General Internal Medicine 05/30/1710/09 documented as of this encounter
--- OUTSIDE RECORDS SUMMARY | 2024-06-16 15:31 | XMS_ITS | Encounter Summary ---
Author Organization [facility] Address [place] [address] Care Team Providers Care Completion Engineer Name Role Phone Jaylan Quintero MD Primary Care Provider [phone] Encounter Details Date Type Department Care Team (Latest Contact Info) Description 10/08/2022 2:00 PM EST Office Visit Cardiology at [address] [phone] Jesi Obregon APRN [facility] [place] [address] ASCVD (arteriosclerotic cardiovascular disease); Aortic valve disease; MINOR (dyspnea on exertion) Social History Tobacco [...] Pulse 86 10/08/2022 1:58 PM EST Temperature - - Respiratory Rate - - Oxygen Saturation 97% 10/08/2022 1:5 8 PM EST Inhaled Oxygen Concentration - - Weight 87.4 kg (192 lb 11.2 oz) 10/08/2022 1:58 PM EST Height 170.2 cm (5' 7) 10/08/2022 1:58 PM EST patient reported Body Mass Index 30.18 10/08/2022 1:58 PM EST documented in this encounter Progress Notes * Jesi Obregon, PLANT ANATOMIST - 10/08/2022 2:00 PM EST Images from the original note were not included. [facility] Cardiovascular Medicine [facility] [address] [facility] [address] [place] [id number] , #2 Subjective: Identification Vikash Álvarez is a [address] Quintero in [facility] with the following cardiovascular issues: 1. Coronary disease----4v CABG in 1994; PCI of SVG in 2013; redo PCI due to ISR in May 2017; PCI ofSVG to OM1 in November [address] Devine 2. Aortic valve disease--- TAVR in December 2016 done at [facility] 3. Conduction disease--- [place] [employer] pacemaker for CHB in December 2016. In January 2021, patient began ventricular pacing nearly all the time. Echocardiogram in October 2021 at [facility] showed normal LV function and a mean gradient of 10. 4. Severe sob--- attributed to lung disease. Normal PCWP and EDP and CI in November 2020. Nl echo in October 2021. Comorbidities ?? COPD on nocturnal O2 (FEV1 < 40%), Matthew Koroma MD ([facility] pulmmonology) ?? prostate cancer treated with prostectomy Lives with his in [facility]. 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 Enjoys [employer] hunting. Present Illness Last visit 12/2021. No interim illnesses or hospitalizations. Saw local pulmonology. Breathing a bit better with albuterol. Still out of breath with minimal activity. Using nocturnal O2 consistently. Not using O2 with activity. O2 sat 82% on arrival today after walking into the clinic. No CP, + MINOR. No orthopnea, PND. No syncope, presyncope. LH, or dizziness. Sleeping OK. Appetite is good. Weight stable. No edema. Medications Current Outpatient Medications: ??? gabapentin (Neurontin) 100 mg Capsule, TAKE ONE CAPSULE BY MOUTH THREE TIMES A DAY NEEDED FOR NERVE PAIN, Disp: , Rfl: ??? amoxicillin (Amoxil) 500 mg Capsule, TAKE FOUR CAPSULES BY MOUTH 1 HOUR PRIOR TO DENTAL PROCEDURE, Disp: , Rfl: ??? albuteroL 90 mcg/actuation HFA Aerosol Inhaler, INHALE TWO PUFFS BY MOUTH EVERY 6 HOURS NEEDED FOR FOR SHORTNESS OF BREATH OR WHEEZING, Disp: , Rfl: ??? triamcinolone (KENALOG) 0.1 % Ointment, Use [...] tablet, Rfl: 12 Objective: Physical Exam BP 109/63 (BP Location (NBP): Left arm, Patient Position: Sitting, BP Cuff Sizes: Adult (25-34 cm)) Pulse 86 Ht 170.2 cm (5' 7) Comment: patient reported Wt 87.4 kg (192 lb 11.2 oz) SpO2 97% BMI 30.18 kg/m?? , Body mass index is 30.18 kg/m??. Pleasant and here with . JVP not elevated. Lungs Clear. RRR No LE edema Alert and oriented Labs Drawn in [facility] and in media - rev'd Date CV Study Major Findings 10/2020 MPS No ischemia or scar. Nl EF. 11/2020 cath RA 5, PA 34/11 (21), PCWP 6. CI 2.8, LVEDP 11. 70% stenosis of SVG to OM1 with no change in symptosm Assessment ?? FC III MINOR, multifactorial, but primarily related to underlying lung disease ?? ASCVD, no CP. On ASA and statin ?? DDD PCM in place. ?? S/P TAVR ?? Well preserved LVEF - euvolemic on exam Plan Continue current medical regimen Use O2 with activity to keep sats > 88-90% F/U with pulmonary locally Cardiology F/U in 6 months with labs, TTE and ekg JESI OBREGON APRN cc: documented in this encounter Plan of Treatment Upcoming Encounters Date Type Department Care Team (Late st Contact Info) Description 08/31/2024 10:00 AM EST Hospital Encounter [place] [address] Arrived documented as of this encounter Visit Diagnoses Diagnosis ASCVD (arteriosclerotic cardiovascular disease) Unspecified cardiovascular disease Aortic valve disease Aortic valve disorders MINOR (dyspnea on exertion) Other dyspnea and respiratory abnormality documented in this encounter Care Teams Completion Engineer Relationship Specialty Start Date End Date Jaylan Quintero MD PCP - General Family Medicine 12/11/21 documented as of this encounter
--- OUTSIDE RECORDS SUMMARY | 2024-06-16 15:31 | XMS_ITS | Encounter Summary ---
Author Organization [facility] Address [facility] [place] [address] Care Team Providers Care Animal Cytologist Name Role Phone Ricki Traylor MD Primary Care Provider [phone] Encounter Details Date Type Department Care Team (Latest Contact Info) Description 08/22/2021 5:17 PM EST - 08/22/2021 11:59 PM EST Hospital Encounter Non-[place] [phone] Trenton Rutledge MD [facility] [place] [address] Sick sinus syndrome Discharge Disposition: Home Social History Tobacco Use Types Packs/Day Years Used Date Smoking Tobacco: Former Cigarettes 1 25 1 705 - 1979 Smokeless Tobacco: Never Alcohol Use [...] AM EST Hospital Encounter Non-[place]vasive [place] [address] Arrived documented as of this encounter Procedures Procedure Name Priority Date/Time Associated Diagnosis Comments PCM INTERROGATION 3 MONTH Routine 08/22/2021 5:17 PM EST Sick sinus syndrome documented in this encounter Results * PCM INTERROGATION 3 MONTH (08/22/2021 5:17 PM EST) Anatomical Region Laterality Modality Other Narrative 09/04/2021 3:55 PM EST BSC DDD PPM remote reviewed. Normal device function. NSVT. AF episodes less than one minute in duration. Trenton Rutledge MD S Cardiac Electrophysiology 09/04/2021 3:54 PM Trenotn Rutledge MD IMPLANTABLE CARDIAC DEVICE documented in this encounter Visit Diagnoses Diagnosis Sick sinus syndrome Sinoatrial node dysfunction documented in this encounter Care Teams Animal Cytologist Relationship Specialty Start Date End Date Ricki Traylor MD [facility] [place] [address] PCP - General General Internal Medicine 05/30/1710/09 documented as of this encounter
--- OUTSIDE RECORDS SUMMARY | 2024-06-16 15:31 | XMS_ITS | Encounter Summary ---
Author Organization [facility] [place] [address] Care Team Providers Care Board Turner Name Role Phone Jaylan Quintero MD Primary Care Provider [phone] Encounter Details Date Type Department Care Team (Latest Contact Info) Description 10/08/2022 Travel Social History Tobacco Use Types Packs/Day Years [...] st Contact Info) Description 08/31/2024 10:00 AM [facility] Hospital Encounter Non-Invasive [place] [address] Arrived documented as of this encounter Visit Diagnoses Not on filedocumented in this encounter Care Teams Board Turner Relationship Specialty Start Date End Date Jaylan Quintero MD PCP - General Family Medicine 12/11/21 documented as of this encounter
--- OUTSIDE RECORDS SUMMARY | 2024-06-16 15:31 | XMS_ITS | Encounter Summary ---
Author Organization [facility] Address [facility] [place] [address] Care Team Providers Care Assistant Men'S Soccer Coach Name Role Phone Jaylan Quintero MD Primary Care Provider [phone] Encounter Details Date Type Department Care Team (Latest Contact Info) Description 03/13/2022 - 03/13/2022 11:59 PM EDT Hospital Encounter Non-[place] [phone] Gabriel Mullins MD [facility] [place] [address] Sick sinus syndrome Discharge Disposition: Home Social [...] AM EST Hospital Encounter Non-[place] [address] Arrived documented as of this encounter Procedures Procedure Name Priority Date/Time Associated Diagnosis Comments PCM INTERROGATION 3 MONTH Routine 03/14/2022 2:48 PM EDT Sick sinus syndrome documented in this encounter Results * PCM INTERROGATION 3 MONTH (03/14/2022 2:48 PM EDT) Anatomical Region Laterality Modality Other Narrative 03/15/2022 8:52 AM EDT Cardiac Device Remote Monitoring Report Summary [employer] Latitude Device: Pacemaker Model: ACCOLADE Battery: 'beginning of service' 3 years Pacing percentage: 100% RV paced Events: Presenting rhythm: atrial sensed/ventricular paced Impression Normal device function Follow Up As per schedule - in-clinic and remote GABRIEL MULLINS MD 03/15/22 Gabriel Mullins MD IMPLANTABLE CARDIAC DEVICE documented in this encounter Visit Diagnoses Diagnosis Sick sinus syndrome Sinoatrial node dysfunction documented in this encounter Care Teams Assistant Men'S Soccer Coach Relationship Specialty Start Date End Date Jaylan Quintero MD PCP - General Family Medicine 12/11/21 documented as of this encounter
--- OUTSIDE RECORDS SUMMARY | 2024-06-16 15:32 | XMS_ITS | Encounter Summary ---
Author Organization [facility] Address [facility] [place] [address] Care Team Providers Care Band Ripsaw Operator Name Role Phone Ricki Traylor MD Primary Care Provider [phone] Encounter Details Date Type Department Care Team (Late st Contact Info) Description 05/15/2020 Orders Only Cardiology at [address] [phone] Zamzam Gamboa APRN [facility] [place] [address] Substernal chest pain Social History Tobacco Use Types Packs/Day Years Used Date Smoking Tobacco: Former Cigarettes 1 04 09 955 - 1979 Smokeless Tobacco: Never Alcohol Use Standard Drinks/Week Comments No 0 (1 standard drink = 0.6 oz pur e alcohol) Sex and Gender Information Value Date Recorded Sex Assigned at Not on file Gender Identity Not on file Sexual Orientation Not on file documented as of this encounter Plan of Treatment Upcoming Encounters Date Type Department Care Team (Late st Contact Info) Description 08/31/2024 10:00 AM EST Hospital Encounter Non-[place]vasive [place] [phone] Arrived documented as of this encounter Visit Diagnoses Diagnosis Substernal chest pain Precordial pain documented in this encounter Care Teams Band Ripsaw Operator Relationship Specialty Start Date End Date Ricki Traylor MD [facility] [address] [place] [address] PCP - General General Internal Medicine 05/30/1710/09 documented as of this encounter
--- OUTSIDE RECORDS SUMMARY | 2024-06-16 15:32 | XMS_ITS | Encounter Summary ---
Author Organization [facility] Address [place] [address] Care Team Providers Care Mental Health Counselor Name Role Phone Ricki Traylor MD Primary Care Provider [phone] Reason for Visit * Reason Onset Date Comments Triage 03/21/2020 Encounter Details Date Type Department Care Team (Late st Contact Info) Description 03/21/2020 Telephone [place] [phone] Chani Ventura Triage Social History Tobacco Use Types Packs/Day Years Used Date Smoking Tobacco: Former Cigarettes 1 25 1 405 - 7813 Smokeless Tobacco: Never Alcohol Use Standard Drinks/Week Comments No 0 (1 standard drink = 0.6 oz pur e alcohol) Sex and Gender Information Value Date Recorded Sex Assigned at Not on file Gender Identity Not on file Sexual Orientation Not on file documented as of this encounter Miscellaneous Notes * Telephone Encounter - Dread Ashby - 03/21/2020 11:47 AM EDT Patient is calling back in hopes to speak with a nurse about blood in his urine. Please call patient back rosendo. * Telephone Encounter - Chani Ventura - 03/21/2020 8:49 AM EDT Message: patient is calling the office to speak with a nurse about some slight red/blood in his urine. This agent told patient about the walk in clinic but patient would like to speak with a nurse regarding this before traveling to the hospital. Please call patient back to discuss further. Ask caller their first and last name and relationship to the patient: Patient Best time to call back: any Ok to leave a message: y Ok to send my- message: n Offered Appointment: offered walk in MA/Nurse/[place] contacted via: Message: y Call: y Pager: [phone] documented in this encounter Plan of Treatment Upcoming Encounters Date Type Department Care Team (Late st Contact Info) Description 08/31/2024 10:00 AM EST Hospital Encounter Non-[place] [phone] Arrived documented as of this encounter Visit Diagnoses Not on filedocumented in this encounter Care Teams Mental Health Counselor Relationship Specialty Start Date End Date Ricki Traylor MD [facility] GENER[facility] [place] [address] PCP - General General Internal Medicine 05/30/1710/09 documented as of this encounter
--- OUTSIDE RECORDS SUMMARY | 2024-06-16 15:32 | XMS_ITS | Encounter Summary ---
Author Organization [facility] Address [facility] [place] [address] Care Team Providers Care Deep Submergence Vehicle Crewmember Name Role Phone Ricki Traylor MD Primary Care Provider [phone] Reason for Visit * Reason Onset Date Comments Triage 05/19/2020 Encounter Details Date Type Department Care Team (Late st Contact Info) Description 05/19/2020 Telephone [place] [phone] Mehnaz Vincent Triage Social History Tobacco Use Types Packs/Day Years Used Date Smoking Tobacco: Former Cigarettes 1 25 1 805 - 6472 Smokeless Tobacco: Never Alcohol Use Standard Drinks/Week Comments No 0 (1 standard drink = 0.6 oz pur e alcohol) Sex and Gender Information Value Date Recorded Sex Assigned at Not on file Gender Identity Not on file Sexual Orientation Not on file documented as of this encounter Miscellaneous Notes * Telephone Encounter - Staci Wasserman RN - 05/19/2020 2:37 PM EDT Called the patient back. The patient was at the pharmacy to obtain a flu shot. He did not receive this as he was found to have a rash like area to the side. He was across from the clinic in [facility]. Went in, saw a provider, and was found to have the virus. He was given a prescription for an antiviral and is now on his way to the pharmacy to pick this up. He will be calling the Cardiology folks to cancel the testing for next week(stress test) as he has these presentations of the virus. Message sent to the PCP to inform. * Telephone Encounter - Mehnaz Vincent - 05/19/2020 12:41 PM EDT Message: The pt feels he has shingles. The pt has some up coming stress test in cardiology he is concerned he may have to reschedule. Please call pt. Ask caller their first and last name and relationship to the patient: self Best time to call back: any Ok to leave a message: y Ok to send my- message: n Offered Appointment: n - pt lives over an hour away and would prefer not to come in if he does not have to MA/Nurse/[place] contacted via: Message: y Call: n Pager: n documented in this encounter Plan of Treatment Upcoming Encounters Date Type Department Care Team (Late st Contact Info) Description 08/31/2024 10:00 AM [facility] Hospital Encounter Non-[place] [address] Arrived documented as of this encounter Visit Diagnoses Not on filedocumented in this encounter Care Teams Deep Submergence Vehicle Crewmember Relationship Specialty Start Date End Date Ricki Traylor MD [facility] [place] [address] PCP - General General Internal Medicine 05/30/1710/09 documented as of this encounter
--- OUTSIDE RECORDS SUMMARY | 2024-06-16 15:32 | XMS_ITS | Encounter Summary ---
Author Organization [facility] Address [facility] [place] [address] Care Team Providers Care Wrecking Crane Engine Operator Name Role Phone Ricki Traylor MD Primary Care Provider [phone] Encounter Details Date Type Department Care Team (Late st Contact Info) Description 11/02/2020 2:15 PM EDT Office Visit Cardiology at [address] [phone] Jesi De León, PHYSICAL PLANT MANAGER [facility] [place] [address] Pacemaker Social History Tobacco Use Types Packs/Day Years [...] Sign Reading Time Taken Comments Blood Pressure 91/52 11/02/2020 1:58 PM EDT Pulse 74 11/02/2020 1:58 PM EDT Temperature - - Respiratory Rate 20 11/02/2020 1:58 PM EDT Oxygen Saturation 94% 11/02/2020 1:58 PM EDT Inhaled Oxygen Concentration - - Weight 90 kg (198 lb 8 oz) 11/02/2020 1:58 PM ED T Height 172.7 cm (5' 8) 11/02/2020 1:58 PM EDT Body Mass Index 30.18 11/02/2020 1:58 PM EDT documented in this encounter Progress Notes * Jesi De León APRN - 11/02/2020 2:15 PM EDT Cardiac Device Interrogation Vikash Álvarez [id number] History: 80 yo male with history of CAD (CABG, PCI), TAVR, complete heart block s/p [employer] dual chamber pacemaker implant by Herbert Dave at [facility] in [place]. External records reviewed under scanned docs dated 05/18/2017. He presents in clinic today for routine device interrogation. He is also scheduled for a nuclear stress test today. LVEF 65% in 2017. QRS 94ms 05/2020. He is followed by Zamzam Gamboa APRN and Dr. Mills. He did not know this visit was to check his device and was expecting that we were going to review all his tests that he had done today. He is feeling well. Device Interrogation: Data Generator: [employer] MRI L311, Serial: # [id number] - Left-sided implant 01/08/17 RA Lead: Glow [id number], SN: [id number], implanted 01/08/2017 RV Lead: Glow [id number], implanted 01/08/2017 Alerts none Diagnostics since 05/12/20 Pacing Mode: DDDR 60-130-130 Presenting EGMs: /VS Underlying Rhythm: sinus rhythm rate 74 bpm Atrial Episodes: <1% AT/AF 1 episode of <1 min duration Ventricular Episodes: 0 Atrial Pacin% Ventricular Pacin% HR Histogram: atrial and ventricular graphs well distributed with predominate rates 60s bpm Battery and Leads Voltage: OK Status: ~5 years Magnet Rate: 100bpm Charge Time: ---sec Impedances (ohms) Sensing (mV) Thresholds HV RA RV LV RA RV LV RA RV LV --- 537 718 --- 3.0 >25 --- 0.8V @ 0.4ms 1.2V @ 0.4ms --- Comments: - Pocket incision is well healed without signs or symptoms of infection - Device is functioning appropriately - Programming changes ?? Iterative changes made for testing purposes only - Follow up: in device clinic in 1 year, remotely every 3 months. - Will discuss with Zamzam Gamboa APRN regarding follow up on nuclear stress test today. Jesi De León APRN Pager: [phone] documented in this encounter Plan of Treatment Upcoming Encounters Date Type Department Care Team (Late st Contact Info) Description 08/31/2024 10:00 AM EST Hospital Encounter [place] [address] Arrived documented as of this encounter Visit Diagnoses Diagnosis Pacemaker Cardiac pacemaker in situ documented in this encounter Care Teams Wrecking Crane Engine Operator Relationship Specialty Start Date End Date Ricki Traylor MD [facility] GENER[facility] [place] [address] PCP - General General Internal Medicine 05/30/1710/09 documented as of this encounter
--- OUTSIDE RECORDS SUMMARY | 2024-06-16 15:32 | XMS_ITS | Encounter Summary ---
Author Organization [facility] Address [facility] [place] [address] Care Team Providers Care Track Supervisor Name Role Phone Ricki Traylor MD Primary Care Provider [phone] Encounter Details Date Type Department Care Team (Late st Contact Info) Description 11/09/2020 Telephone Cardiology at [address] [address] Zamzam Gamboa APRN [facility] [place] [address] Social History Tobacco Use Types Packs/Day Years [...] encounter Miscellaneous Notes * Telephone Encounter - Zamzam Gamboa APRN - 11/09/2020 3:12 PM EDT Placed a call toMr. Álvarez to discuss the results of his recent nuclear stress test. While the stress test did not show any reversible ischemia, it is not the gold standard of testing.Given Mr Álvarez's ongoing issues with chest discomfort, we will proceed with a LHC. Mr. Álvarez is in agreement with the plan. documented in this encounter Plan of Treatment Upcoming Encounters Date Type Department Care Team (Late st Contact Info) Description 08/31/2024 10:00 AM EST Hospital Encounter Non-Invasive [place] [address] Arrived documented as of this encounter Visit Diagnoses Not on filedocumented in this encounter Care Teams Track Supervisor Relationship Specialty Start Date End Date Ricki Traylor MD [facility] DR GENER[place] [address] PCP - General General Internal Medicine 05/30/1710/09 documented as of this encounter
--- OUTSIDE RECORDS SUMMARY | 2024-06-16 15:32 | XMS_ITS | Encounter Summary ---
Author Organization [facility] Address [facility] [place] [address] Care Team Providers Care Pediatric Dentist Name Role Phone Ricki Traylor MD Primary Care Provider [phone] Encounter Details Date Type Department Care Team (Late st Contact Info) Description 09/13/2020 Telephone [place] [address] Harshil Marte MD [facility] [place] [address] Social History Tobacco Use Types Packs/Day Years Used Date Smoking Tobacco: Former Cigarettes 1 1 055 - 1979 Smokeless Tobacco: Never Alcohol Use Standard Drinks/Week Comments No 0 (1 standard drink = 0.6 oz pur e alcohol) Sex and Gender Information Value Date Recorded Sex Assigned at Not on file Gender Identity Not on file Sexual Orientation Not on file documented as of this encounter Miscellaneous Notes * Telephone Encounter - Lisa Miller - 10/13/2020 10:34 AM EST Patient scheduled * Telephone Encounter - Vanessa Curtis - 09/13/2020 10:14 AM EST Patient called in to cancel laser appt as he would like to wait until he is fully vaccinate. Patient requested October/November, but I let him know it may be out to January. After speaking with Lisa, [facility] [place] needs to review and approve so Lisa will call patient back to reschedule. Patient can be reached at [phone] documented in this encounter Plan of Treatment Upcoming Encounters Date Type Department Care Team (Late st Contact Info) Description 08/31/2024 10:00 AM EST Hospital Encounter [place] [address] Arrived documented as of this encounter Visit Diagnoses Not on filedocumented in this encounter Care Teams Pediatric Dentist Relationship Specialty Start Date End Date Ricki Traylor MD [facility] [place] [address] PCP - General General Internal Medicine 05/30/1710/09 documented as of this encounter
--- OUTSIDE RECORDS SUMMARY | 2024-06-16 15:32 | XMS_ITS | Encounter Summary ---
Author Organization [facility] [place] [address] Care Team Providers Care Motion Pictures Cartoonist Name Role Phone Rciki Traylor MD Primary Care Provider [phone] Reason for Visit * Reason Onset Date Comments Triage 04/04/2020 UTI Encounter Details Date Type Department Care Team (Late st Contact Info) Description 04/04/2020 Telephone [place] [phone] Melodie Morris Triage (UTI) Social History Tobacco Use Types Packs/Day Years Used Date Smoking Tobacco: Former Cigarettes 09 04 1 095 - 6107 Smokeless Tobacco: Never Alcohol Use Standard Drinks/Week Comments No 0 (1 standard drink = 0.6 oz pur e alcohol) Sex and Gender Information Value Date Recorded Sex Assigned at Not on file Gender Identity Not on file Sexual Orientation Not on file documented as of this encounter Miscellaneous Notes * Telephone Encounter - Cecilia Nassar RN - 04/04/2020 9:53 AM EDT Reason for call: UTI back Pt says he finished Macrobid 03/28 after taking it BID for 7 days, and said it worked great--clearing up UTI problem within 12 hours. Pt said s/sx of UTI began again a few days later. Pt said he has no pain or fever, but he is experiencing burning sensation and urgency. Pt said urgency is especiallybad when he's in bed: between 5-8 this morning, he said he had to urinate 4-5 times, with only a little bit resulted each void. Pt did not take the prescribed pyridium, as he said that he was not experiencing pain. I told patient that normally male patients with UTIs would need appointments, but since he'd just been here for same problem, I would ask providers to advise, and call him back. * Telephone Encounter - Melodie Morris - 04/04/2020 9:20 AM EDT Message: Vikash is experiencing a UTI again. There is no blood in the Urine but it is back with a vengence He is wondering if he can get another prescription for the Macrobid. Please call to discuss Ask caller their first and last name and relationship to the patient: Vikash Álvarez Best time to call back: today Ok to leave a message: y Ok to send my- message: n Offered Appointment: n MA/Nurse/[place] contacted via: Message: y Call: n Pager: n documented in this encounter Plan of Treatment Upcoming Encounters Date Type Department Care Team (Late st Contact Info) Description 08/31/2024 10:00 AM EST Hospital Encounter Non-[place]vasive [place] [address] Arrived documented as of this encounter Visit Diagnoses Not on filedocumented in this encounter Care Teams Motion Pictures Cartoonist Relationship Specialty Start Date End Date Ricki Traylor MD [facility] GENERAL [place] [address] PCP - General General Internal Medicine 05/30/1710/09 documented as of this encounter
--- OUTSIDE RECORDS SUMMARY | 2024-06-16 15:32 | XMS_ITS | Encounter Summary ---
Author Organization [facility] [place] [address] Care Team Providers Care Remote Broadcast Engineer Name Role Phone Ricki Traylor MD Primary Care Provider [phone] Reason for Visit * Reason Onset Date Comments Questions 05/19/2020 Encounter Details Date Type Department Care Team (Late st Contact Info) Description 05/19/2020 Telephone Cardiology at [address] [phone] Brittany Youngblood, RN Questions Social History Tobacco Use Types Packs/Day Years Used Date Smoking Tobacco: Former Cigarettes 1 25 1 677 - 7649 Smokeless Tobacco: Never Alcohol Use Standard Drinks/Week Comments No 0 (1 standard drink = 0.6 oz pur e alcohol) Sex and Gender Information Value Date Recorded Sex Assigned at Not on file Gender Identity Not on file Sexual Orientation Not on file documented as of this encounter Miscellaneous Notes * Telephone Encounter - Brittany Youngblood RN - 05/22/2020 4:27 PM EDT Follow up call to Mr Álvarez regarding the rash he reported to have, and confirm with him whether he does have shingles, as he was seen by a primary engineering team supervisor. Left a message for him to return our call, to the Cardiology Clinic Nurse line. * Telephone Encounter - Brittany Youngblood RN - 05/19/2020 12:34 PM EDT Mr Álvarez called and states he has a rash on his side, back, and chest, and thinks this might be shingles, should he cancel his stress test scheduled, for Friday. Asked Mr Henri to call his primaryphysician for a diagnosis and treatment of this rash, or shingles, and then we can follow up, and determine if we need to cancel or not. Patient verbalizes understanding, and agrees with this plan. documented in this encounter Plan of Treatment Upcoming Encounters Date Type Department Care Team (Late st Contact Info) Description 08/31/2024 10:00 AM [facility] Hospital Encounter [place] [address] Arrived documented as of this encounter Visit Diagnoses Not on filedocumented in this encounter Care Teams Remote Broadcast Engineer Relationship Specialty Start Date End Date Ricki Traylor MD [facility] GENERAL [place] [address] PCP - General General Internal Medicine 05/30/1710/09 documented as of this encounter
--- OUTSIDE RECORDS SUMMARY | 2024-06-16 15:32 | XMS_ITS | Encounter Summary ---
[place] [address] Care Team Providers Care Automobile Taillight Assembler Name Role Phone Ricki Traylor MD Primary Care Provider [phone] Reason for Referral * Diagnostic Test (Routine) - Closed Specialty Diagnoses / Procedures Referred By Contac t Referred To Contact Radiology Diagnoses Substernal chest pain Procedures NM Pharmacologic Stress CT Component Zamzam Gamboa APRN [facility] [address] [place] [address] Referral ID Status Reason Start Date Expiration Date V isits Requested Visits Authorized [id number] Closed Specialty Service Requested 05/15/2020 11/13/2021 1 1 Reason for Visit * Diagnostic Test (Routine) - Closed Specialty Diagnoses / Procedures Referred By Contac t Referred To Contact Radiology Diagnoses Substernal chest pain Procedures NM Pharmacologic Stress CT Component Zamzam Gamboa DOUBLE BACKER [facility] [place] [address] [place] [address] Referral ID Status Reason Start Date Expiration Date V isits Requested Visits Authorized [id number] Closed Specialty Service Requested 05/15/2020 11/13/2021 1 1 Encounter Details Date Type Department Care Team (Latest Contact Info) Description 11/02/2020 10:32 AM EDT - 11/02/2020 11:59 PM EDT Hospital Encounter [place] [address] Zamzam Gamboa [facility] [place] [address] Substernal chest pain Discharge Disposition: Home Social History Tobacco Use Types Packs/Day Years Used Date Smoking Tobacco: Former Cigarettes 592 7995 Smokeless Tobacco: Never Alcohol Use Standard Drinks/Week Comments No 0 (1 standard drink = 0.6 oz pur e alcohol) Sex and Gender Information Value Date Recorded Sex Assigned at Not on file Gender Identity Not on file Sexual Orientation Not on file documented as of this encounter Medications at Time of Discharge Medication Sig Dispensed Refills Start Date End Date nitroGLYcerin (Nitrostat) 0.4 mg Tablet, Sublingual Place 1 tablet under the tongue every 5 minutes as needed for Chest pain. 25 tablet 12 05/12/2020 clopidogreL (Plavix) 75 mg Tablet Take 1 tablet by mouth once daily 90 tablet 10/31/2020 11/17/2020 metoprolol tartrate (Lopressor) 50 mg Tablet Take 1 tablet by mouth twice daily 180 tablet 10/31/2020 11/17/2020 lisinopriL (Prinivil;Zestril) 2.5 mg TabletIndications:Garcia ry arteriosclerosis Take 1 tablet by mouth once daily 90 tablet 3 10/31/2020 11/17/2020 atorvastatin (Lipitor) 40 mg Tablet TAKE 1 TABLET BY MOUTH ONCE DAILY IN THE EVENING 90 tablet 10/31/2020 11/17/2020 furosemide (Lasix) 20 mg TabletIndications:Garcia ry artery disease without angina pectoris, unspecified vessel or lesion type, unspecified whether coquille or transplanted heart,Aortic valve disease Take 1 tablet by mouth once daily 90 tablet 09/20/2020 11/17/2020 triamcinolone (KENALOG) 0.1 % Ointment Use 2 times daily to lower extremities for 1 week, take a week off, repeat cycle if needed. 454 g 12/20/2019 01/10/2021 documented as of this encounter Plan of Treatment Upcoming Encounters Date Type Department Care Team (Late st Contact Info) Description 08/31/2024 10:00 AM EST Hospital Encounter Non-Invasive [place] [address] Arrived documented as of this encounter Procedures Procedure Name Priority Date/Time Associated Diagnosis Comments NM PHARMACOLOGIC STRESS CT COMPONENT Routine 11/02/2020 12:44 PM EDT Substernal chest pain documented in this encounter Results * NM Pharmacologic Stress CT Component (11/02/2020 12:44 PM EDT) Anatomical Region Laterality Modality Nuclear Medicine Impressions 11/02/2020 1:57 PM EDT 1. ??No definite ischemia or scar. Bowel activity adjacent to the inferior wall somewhat limits evaluation of this region. 2. ??Normal regional and global LV function. I have personally reviewed the image(s) and the resident's interpretation and agree with the findings, Justyn Castro MD at 11/02/2020 1:57 PM Thank you for letting us participate in the care of this patient. For questions regarding this report, please contact the number below. ? Narrative 11/02/2020 1:57 PM EDT EXAMINATION: NM PHARMACOLOGIC STRESS AND REST MYOCARDIAL PERFUSION, NM PHARMACOLOGIC STRESS CT COMPONENT CLINICAL HISTORY: chest pain, suspicious for angina 4v CABG in 1994, PCI of SVG in 2013, redo PCI in May 2017 TECHNIQUE: During rest, 7.8 mCi of technetium-99m sestamibi was administered intravenously. Approximately 20 minutes later, SPECT images of the heart were obtained with reconstruction in the short, vertical long and horizontal long axis. The patient then received regadenoson intravenously at a dose of 0.4 mg. 20 seconds later, 25.9 mCi of technetium-99m sestamibi was administered intravenously. Images of the heart were then again obtained with SPECT reconstruction. A low-dose CT scan was acquired for the purpose of attenuation correction COMPARISON: None FINDINGS: No definite fixed or reversible perfusion defects. Bowel activity adjacent to the inferior wall somewhat limits evaluation of this region. Functional analysis: Myocardial function: Normal wall motion in all regions. wLeft ventricular ejection fraction: 61 % (normal greater than than 50%). INCIDENTAL CT FINDINGS: Partially visualized calcified pleural plaque in both lungs, which may be related to prior asbestos exposure. Status post CABG and aortic valve stent placement. Partially visualized pacemaker wires. Median sternotomy wires are present. Procedure Note Justyn Castro MD - 11/02/2020 EXAMINATION: NM PHARMACOLOGIC STRESS AND REST MYOCARDIAL PERFUSION, NM PHARMACOLOGIC STRESS CT COMPONENT CLINICAL HISTORY: chest pain, suspicious for angina 4v CABG in 1994, PCI of SVG in 2013, redo PCI in May 2017 TECHNIQUE: During rest, 7.8 mCi of technetium-99m sestamibi wasadministered intravenously. Approximately 20 minutes later, SPECT images of the heartwere obtained with reconstruction in the short, vertical long and horizontallong axis. The patient then received regadenoson intravenously at a dose of 0.4 mg.20 seconds later, 25.9 mCi of technetium-99m sestamibi was administered intravenously. Images of the heart were then again obtained with SPECT reconstruction. A low-dose CT scan was acquired for the purpose of attenuationcorrection COMPARISON: None FINDINGS: No definite fixed or reversible perfusion defects. Bowel activity adjacentto the inferior wall somewhat limits evaluation of this region. Functional analysis: Myocardial function: Normal wall motion in all regions. wLeft ventricular ejection fraction: 61 % (normal greater than than50%). INCIDENTAL CT FINDINGS: Partially visualized calcified pleural plaque in both lungs, which maybe related to prior asbestos exposure. Status post CABG and aortic valvestent placement. Partially visualized pacemaker wires. Median sternotomy wiresare present. IMPRESSION 1. No definite ischemia or scar. Bowel activity adjacent to the inferiorwall somewhat limits evaluation of this region. 2. Normal regional and global LV function. I have personally reviewed the image(s) and the resident's interpretationand agree with the findings, Justyn Castro MD at 11/02/2020 1:57 PM Thank you for letting us participate in the care of this patient. Forquestions regarding this report, please contact the number below. Zamzam Gamboa DOUBLE BACKER IMG NM ORDERABLES documented in this encounter Visit Diagnoses Diagnosis Substernal chest pain Precordial pain documented in this encounter Care Teams Automobile Taillight Assembler Relationship Specialty Start Date End Date Ricki Traylor MD [facility] [place] [address] PCP - General General Internal Medicine 05/30/1710/09 documented as of this encounter
--- OUTSIDE RECORDS SUMMARY | 2024-06-16 15:32 | XMS_ITS | Encounter Summary ---
Author Organization [facility] Address [facility] [place] [address] Care Team Providers Care Associate Director Career Services Name Role Phone Ricki Traylor MD Primary Care Provider [phone] Encounter Details Date Type Department Care Team (Latest Contact Info) Description 08/16/2020 3:26 PM EST - 08/16/2020 11:59 PM EST Hospital Encounter Non-Invasive [place] [phone] Gabriel Sinha MD [facility] [place] [address] Sick sinus syndrome Discharge Disposition: Home Social History Tobacco Use Types Packs/Day Years Used Date Smoking Tobacco: Former Cigarettes 1 04 09 445 - 1979 Smokeless Tobacco: Never Alcohol Use [...] for Chest pain. 25 tablet 12 05/12/2020 triamcinolone (KENALOG) 0.1 % Ointment Use 2 times daily to lower extremities for 1 week, take a week off, repeat cycle if needed. 454 g 12/20/2019 01/10/2021 atorvastatin (Lipitor) 40 mg Tablet Take 1 tablet by mouth every evening. 90 tablet 3 09/23/2019 10/31/2020 clopidogreL (Plavix) 75 mg Tablet Take 1 tablet by mouth daily. 90 tablet 3 09/23/2019 10/31/2020 metoprolol tartrate (Lopressor) 50 mg Tablet Take 1 tablet by mouth 2 times daily. 180 tablet 3 09/23/2019 10/31/2020 furosemide (Lasix) 20 mg TabletIndications:Garcia ry artery disease without angina pectoris, unspecified vessel or lesion type, unspecified whether kake or transplanted heart,Aortic valve disease Take 1 tablet by mouth daily. 90 tablet 3 09/22/2019 09/20/2020 lisinopriL (Prinivil;Zestril) 2.5 mg TabletIndications:Garcia ry arteriosclerosis Take 1 tablet by mouth daily. 90 tablet 3 09/15/2019 10/31/2020 documented as of this encounter Plan of Treatment Upcoming Encounters Date Type Department Care Team (Late st Contact Info) Description 08/31/2024 10:00 AM EST Hospital Encounter Non-Invasive [place] [address] Arrived documented as of this encounter Procedures Procedure Name Priority Date/Time Associated Diagnosis Comments PCM INTERROGATION 3 MONTH Routine 08/16/2020 3:28 PM EST Sick sinus syndrome documented in this encounter Results * PCM INTERROGATION 3 MONTH (08/16/2020 3:28 PM EST) Anatomical Region Laterality Modality Other Narrative 08/17/2020 1:16 PM EST Cardiac Device Remote Monitoring Report Summary 08/17/20 Device: ??DC PPM Model: [employer] Accolade MRI Battery: estimated longevity 5.5 years Pacing percentage: 30% atrial pacing decreased from 100% at LRL on prior evaluation Leads: stable lead parameters Events: Improved heart rate variability (via both Ap and As events) Impression Normal device function Follow Up As per schedule - in-clinic and remote GABRIEL SINHA MD Gabriel Sinha MD IMPLANTABLE CARDIAC DEVICE documented in this encounter Visit Diagnoses Diagnosis Sick sinus syndrome Sinoatrial node dysfunction documented in this encounter Care Teams Associate Director Career Services Relationship Specialty Start Date End Date Ricki Traylor MD [facility] [place] [address] PCP - General General Internal Medicine 05/30/1710/09 documented as of this encounter
--- OUTSIDE RECORDS SUMMARY | 2024-06-16 15:32 | XMS_ITS | Encounter Summary ---
Author Organization [facility] Address [facility] [place] [address] Care Team Providers Care Quickbooks Bookkeeper Name Role Phone Ricki Traylor MD Primary Care Provider [phone] Reason for Visit * Reason Comments Medication Refill Encounter Details Date Type Department Care Team (Late st Contact Info) Description 09/19/2020 Refill Cardiology at [address] [phone] Juan Jose Mills MD [facility] [place] [address] Medication Refill Social History Tobacco Use Types Packs/Day Years Used Date Smoking Tobacco: Former Cigarettes 1 25 1 895 - 4983 Smokeless Tobacco: Never Alcohol Use Standard Drinks/Week Comments No 0 (1 standard drink = 0.6 oz pur e alcohol) Sex and Gender Information Value Date Recorded Sex Assigned at Not on file Gender Identity Not on file Sexual Orientation Not on file documented as of this encounter Miscellaneous Notes * Telephone Encounter - Louisa Herman RN - 09/20/2020 11:27 AM EST Requested Prescriptions Pending Prescriptions Disp Refills ??? furosemide (Lasix) 20 mg Tablet [Pharmacy Med Name: Furosemide 20 MG Oral Tablet] 90 tablet 0 Sig: Take 1 tablet by mouth once daily Last visit with Angie Gamboa 05-12-20 FUV to be determined post ischemic work up. NM stress test and cardiac cath ordered- not seen where done. Call to patient to discuss- message left with call back number. 2. Coronary arteriosclerosis Stopped aspirin and continue clopidogrel monotherapy---see reference below Continue Lisinopril 2.5 mg once daily and BB ?? 3. Aortic valve disease--- TAVR December 2016 Functioning well.? 4. SOB/? Angina Per patient the symptoms are similar to prior episodes when he needed a stent EKG unchanged from prior Last BMP 05-12-20 Louisa Herman RN 4A Cardiology documented in this encounter Plan of Treatment Upcoming Encounters Date Type Department Care Team (Late st Contact Info) Description 08/31/2024 10:00 AM EST Hospital Encounter Non-Invasive [place] [phone] Arrived documented as of this encounter Visit Diagnoses Diagnosis Coronary artery disease without angina pectoris, unspecified vessel or lesion type, unspecified whether [place] or transplanted heart Aortic valve disease--- TAVR December 2016 Aortic valve disorders documented in this encounter Care Teams Quickbooks Bookkeeper Relationship Specialty Start Date End Date Ricki Traylor MD [facility] [address] PCP - General General Internal Medicine 05/30/1710/09 documented as of this encounter
--- OUTSIDE RECORDS SUMMARY | 2024-06-16 15:32 | XMS_ITS | Encounter Summary ---
Author Organization [facility] Address [facility] [place] [address] Care Team Providers Care Primary Care Nurse Practitioner Name Role Phone Ricki Traylor MD Primary Care Provider [phone] Reason for Visit * Reason Onset Date Comments Triage 06/08/2020 Encounter Details Date Type Department Care Team (Late st Contact Info) Description 06/08/2020 Telephone [place] [phone] Sakina Waggoner Triage Social History Tobacco Use Types Packs/Day Years Used Date Smoking Tobacco: Former Cigarettes 1 25 1 955 - 8467 Smokeless Tobacco: Never Alcohol Use Standard Drinks/Week Comments No 0 (1 standard drink = 0.6 oz pur e alcohol) Sex and Gender Information Value Date Recorded Sex Assigned at Not on file Gender Identity Not on file Sexual Orientation Not on file documented as of this encounter Miscellaneous Notes * Telephone Encounter - Sophia Gillis - 06/09/2020 10:13 AM EDT Pt called and I relayed the message * Telephone Encounter - Bulmaro Grimm RN - 06/08/2020 11:40 AM EDT Spoke with pt- he states that he was diagnosed with shingles on 05/19 at a clinic in [facility]. He has finished his prescriptions and the shingles have now dried up. He states that he has no pain. He reports that the rash is still visible on his right side of back and under right arm. He would like to know if he can get the flu shot. He would also like to know if he can proceed with his nuclearstress test scheduled for 06/12. Informed him I would send Dr Traylor a message and call him back. * Telephone Encounter - Sakina Waggoner - 06/08/2020 10:55 AM EDT Message: Pt is calling to speak with a nurse regarding the shingles. Pt would also like to discuss getting a flu shot. Please call to discuss. Ask caller their first and last name and relationship to the patient: self Best time to call back: any Ok to leave a message: n Ok to send my- message: n Offered Appointment: n MA/Nurse/Pack Worker Supervisor contacted via: Message: y Call: y Pager: [phone] documented in this encounter Plan of Treatment Upcoming Encounters Date Type Department Care Team (Late st Contact Info) Description 08/31/2024 10:[address] [facility] Hospital Encounter [place] [phone] Arrived documented as of this encounter Visit Diagnoses Not on filedocumented in this encounter Care Teams Primary Care Nurse Practitioner Relationship Specialty Start Date End Date Ricki Traylor MD [facility] [place] [address] PCP - General General Internal Medicine 05/30/1710/09 documented as of this encounter
--- OUTSIDE RECORDS SUMMARY | 2024-06-16 15:32 | XMS_ITS | Encounter Summary ---
Author Organization [facility] [place] [address] Care Team Providers Care Automated Equipment Engineer Technician Name Role Phone Ricki Traylor MD Primary Care Provider [phone] Reason for Visit * Diagnostic Test (Routine) - Closed Specialty Diagnoses / Procedures Referred By Contac t Referred To Contact Radiology Diagnoses Substernal chest pain Procedures NM Pharmacologic Stress and Rest Myocardial Perfusion Zamzam Gamboa [employer] [facility] [place] [address] [place] [address] Referral ID Status Reason Start Date Expiration Date V isits Requested Visits Authorized [id number] Closed Specialty Service Requested 05/15/2020 11/13/2021 1 1 Encounter Details Date Type Department Care Team (Latest Contact Info) Description 11/02/2020 10:31 AM EDT Hospital Encounter [place] [phone] Zamzam Gamboa [facility] [place] [address] Discharge Disposition: Home Social History Tobacco Use [...] unspecified vessel or lesion type, unspecified whether [place] or transplanted heart,Aortic valve disease Take 1 [...] AM EST Hospital Encounter Non-[place] [phone] Arrived documented as of this encounter Procedures Procedure Name Priority Date/Time Associated Diagnosis Comments NM PHARMACOLOGIC STRESS AND REST MYOCARDIAL PERFUSION Routine 11/02/2020 11:51 AM EDT Substernal chest pain documented in this encounter Visit Diagnoses Not on filedocumented in this encounter Administered Medications Inactive Administered Medications - up to 3 most recent administrations Medication Order MAR Action Action Date Dose Rate Site regadenoson (Lexiscan) injection 0.4 mg 0.4 mg, Intravenous, ONCE, 1 dose, On Martha 11/02/20 at 1215, Radiology Contrast, Routine Given 11/02/2020 11:45 AM EDT 0.4 mg technetium (Tc-99m) sestamibi injection 25.9 mCi 25.9 mCi, Intravenous, ONCE PRN, 1 dose, Starting on Martha 11/02/20 at 1145, Until Martha 11/02/20 at 1145, Per Protocol, Routine Given 11/02/2020 11:45 AM EDT 25.9 mCi documented in this encounter Care Teams Automated Equipment Engineer Technician Relationship Specialty Start Date End Date Ricki Traylor MD [facility] [place] [address] PCP - General General Internal Medicine 05/30/1710/09 documented as of this encounter
--- OUTSIDE RECORDS SUMMARY | 2024-06-16 15:32 | XMS_ITS | Encounter Summary ---
Author Organization [facility] [place] [address] Care Team Providers Care Apns Name Role Phone Ricki Traylor MD Primary Care Provider [phone] Reason for Visit * Auth/Cert Specialty Diagnoses / Procedures Referred By Contac t Referred To Contact Diagnoses CAD (coronary artery disease) of bypass graft Post-Op monitoring Procedures PRG CATH PLMT LEFT HEART CATH & ARTS W/INJ & ANGIO IMG S&I CARDIAC CATHETERIZATION CORONARY ANGIOGRAPHY; W LHC,POSSIBLE PCI Referral ID Status Reason Start Date Expiration Date Visits Re quested Visits Authorized [id number] 1 1 Encounter Details Date Type Department Care Team (Latest Contact Info) Description 11/16/2020 9:43 AM EDT - 11/17/2020 11:56 AM EDT Hospital Encounter [place] [id number] Harshil Zuniga MD [facility] [place] [address] Substernal chest pain; Substernal chest pain; Coronary arteriosclerosis; Coronary artery disease involving coronary bypass graft of [place] heart, angina presence unspecified; S/P coronary artery stent placement Discharge Disposition: Home Social History Tobacco Use [...] Sign Reading Time Taken Comments Blood Pressure 97/58 11/17/2020 9:25 AM EDT Pulse 78 11/17/2020 9:25 AM EDT Temperature 36.5 ??C (97.7 ??F) 11/17/2020 9:25 AM ED T Respiratory Rate 21 11/17/2020 9:25 AM EDT Oxygen Saturation 98% 11/17/2020 9:25 AM EDT Inhaled Oxygen Concentration - - Weight 90.7 kg (200 lb) 11/16/2020 11:42 AM EDT Height 172.7 cm (5' 8) 11/16/2020 11:42 AM EDT Body Mass Index 30.41 11/16/2020 11:42 AM EDT documented in this encounter Discharge Summaries * Tom Malone PA - 11/17/2020 11:56 AM EDTSummary: Post PCI / Vein Graft Intervention Discharge Summary Discharge Summary Patient Name: Vikash Álvarez Patient Age: 80 y.o. Language: Italian Race: White Ethnicity: Not nor Admit date: 11/16/2020 Discharge date and time: 11/16/2020 1600 Attending Physician: No att. providers found Discharge Physician: Tom Malone PA-C, Aaron MD Follow-up Recommendations for Providers: - dual antiplatelet regimen as follows: - aspirin 81 mg daily lifelong - clopidogrel 75 mg daily - recommend follow up with cardiology in 3-4 weeks with Juan Jose Mills and Zamzam Gamboa at [facility] Inpatient Provider Contact Information: Fabien Malone PA-c [facility] pager [phone] Discharge Diagnoses (Hospital Problems) and Secondary Diagnoses (Chronic Problems): Active Hospital Problems Diagnosis ??? Substernal chest pain Added automatically from request for surgery [id number] ??? CAD (coronary artery disease) of bypass graft Resolved Hospital Problems No resolved problems to display. Active Non-Hospital Problems Diagnosis ??? Conduction system disease---- has [employer] pacer. ?? 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 Received [employer] Accolade MRI pacemaker. ?? Aug 2018: RhythmIQ turned off and PAV and FELICITY extended to reduce ventricular pacing in context of dyspnea. ??? Vitamin D deficiency ??? Hyperlipidemia ??? Aortic valve disease--- TAVR December: Evolut 29 at [facility] 05/19/17 echo: no prosthetic aortic valve regurg ??? Coronary arteriosclerosis 1994: 4v CABG 2014: PCI of SVG 05/19/17: [facility] with PCI to mid SVG--RPDA ??? Chronic obstructive pulmonary disease ??? Prostate cancer--- treated with radical prostatectomy Operations/Major Procedures: Operations: Procedure(s): CARDIAC CATHETERIZATION CORONARY ANGIOGRAPHY; W LHC,POSSIBLE PCI Vein graft lumenography Coronary angiography Left heart catheterization Vein graft revascularization History of Presentation: This 80 y.o. male is admitted with a chief complaint of CAD s/p PCI. ?? 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 ?? In the setting of progressive dyspnea with minimal exertion, he was referred for coronary angiography and cardiac catheterization. ?? He had a nuclear stress test in 10/2020 which was limited in its evaluation of the inferior wall butshowed preserved LVEF and no evidence of ischemia. ?? He has been on chronic single anti-platelet agent with Plavix 75mg once daily, including today. ?? I have reviewed the available records, interviewed and examined the patient. ?? This patient is admitted post PCI for IV hydration, pain management, access site management in the setting of anticoagulation, serial cardiac biomarker monitoring, telemetry monitoring, evaluation oftheir medical condition, and cardiac rehabilitation. ?? ROS/PMHx/Fam Hx/Soc Hx: Reviewed, see outpatient note. Hospital Course: The patient was admitted following cardiac catheterization for overnight monitoring and observation. The patient did well overnight without significant chest pain or arrhythmias on telemetry. The right femoral access site was evaluated and the femoral pulse was palpable with no evidence of vascular compromise to the right groin/hand. Cardiac biomarkers and a repeat ECG were reviewed with no evidence of active ischemia. VS and renal function remained stable. The patient ambulated with nursing without chest discomfort or exertional dyspnea. The patient met criteria for discharge, and was released home in stable condition. PROCEDURE: Right heart catheterization Left heart catheterization Coronary angiography Bypass graft lumenography PCI to vein graft ?? Access:?Right Femoral Vein: ??7 Fr, Right Femoral Artery: ??6 Fr Ultrasound guided access, manual pressure for hemostasis ?? Preliminary findings: Fluoroscopic exam of the chest shows sternal wires, RA & RV pacer leads and a CoreValve-TAVR valve ?? Right Heart Hemodynamics RA:? RV:?38/-/6 PA:?34 PCW:? Coronary Angiography: Anatomically normal right dominant circulation ?? LMCA:?Without angiographic apparent disease LAD:?Minimal luminal irregularities noted, Mid - Vessel occlusion LCx:?High grade proximal lesion with competitive flow in the largeOM (See SVG below) RCA:?Not injected ?? L Subclavian is anatomically normal without apparent disease ?? DUVAL ?Lzng-pt-bcsw anastomosis to the diag is widely patent End-to-side anastomosis to the LAD is widely patent SVG-OM1?High grade proximal lesion SVG-RCA ?Good prox and distal anastomosis. Previously placed stent is widely patent ?? SVG-OM PCI PCI to ostial OM graft was treated with a single REBECCA with distal protection with good angiographic result. ?? Contrast?137 ml Functional and Cognitive Status: Independent in ALDs and IADLs, A&O x 3, at baseline Important Studies and Lab Data: Labs: Lab Results Component Value Date WBC 5.9 05/12/2020 HGB 12.2 (L) 05/12/2020 HCT 37.4 (L) 05/12/2020 PLATELET 149 05/12/2020 No results for input(s): INR in the last 168 hours. Lab Results Component Value Date NA 140 11/16/2020 K 4.8 11/16/2020 CL 102 11/16/2020 CO2 30 11/16/2020 BUN 26 (H) 11/16/2020 CREATININE 1.07 11/16/2020 No results for input(s): CK, TROPONINT in the last 168 hours. Lab Results Component Value Date CHLPL 139 06/26/2017 HDL 46 06/26/2017 CHOLHDL 3.0 06/26/2017 Pending Studies and Lab Data: None Discharge Conditions/Prognosis: Good Discharge to: Home Updated Allergies/ADRs: No Known Allergies Immunizations Given this Hospitalization: Immunization History Administered Date(s) Administered ??? Influenza PF, Split (High Dose) 05/17/2015, 06/10/2016, 05/20/2017, 07/01/2019 ??? Influenza Vaccine, Quadrivalent, Adjuvanted 06/19/2020 ??? Influenza Vaccine, Unspecified Formulation 05/11/2013, 05/11/2014 ??? Influenza, Trivalent, Adjuvanted 07/01/2019 ??? Pneumococcal Conjugate (13 Valent) 09/13/2015 ??? Pneumococcal Polyvalent 23 12/19/2008 ??? Tdap Vaccine 06/26/2017 Discharge Medications: Your Medications New Medications Dose Details aspirin 81 mg Chew Take 81 mg by mouth daily. 81 mg Quantity: 90 tablet Refills: 3 Continued medications with new dosing Dose Details atorvastatin 40 mg Tab Commonly known as: Lipitor Take 1 tablet by mouth every evening. What changed: See the new instructions. 40 mg Quantity: 90 tablet Refills: 3 clopidogreL 75 mg Tab Commonly known as: Plavix Take 1 tablet by mouth daily. What changed: See the new instructions. 75 mg Quantity: 90 tablet Refills: 3 furosemide 20 mg Tab Commonly known as: Lasix Take 1 tablet by mouth daily. What changed: See the new instructions. 20 mg Quantity: 80 tablet Refills: 3 lisinopriL 2.5 mg Tab Commonly known as: Prinivil;Zestril Take 1 tablet by mouth daily. What changed: See the new instructions. 2.5 mg Quantity: 90 tablet Refills: 3 metoprolol tartrate 50 mg Tab Commonly known as: Lopressor Take 1 tablet by mouth 2 times daily. What changed: See the new instructions. 50 mg Quantity: 180 tablet Refills: 3 Continued medications, unchanged Dose Details diphenhydrAMINE-acetaminophen 25-500 mg Tab Commonly known as: TYLENOL PM Take by mouth daily as needed (Bedtime). Refills: 0 nitroGLYcerin 0.4 mg Subl Commonly known as: Nitrostat Place 1 tablet under the tongue every 5 minutes as needed for Chest pain. 0.4 mg Quantity: 25 tablet Refills: 12 triamcinolone 0.1 % Oint Commonly known as: KENALOG Use 2 times daily to lower extremities for 1 week, take a week off, repeat cycle if needed. Quantity: 454 g Refills: 0 Smoking Status at Discharge: Social History Tobacco Use Smoking Status Former Smoker ??? Packs/day: 1.00 ??? Years: 25.00 ??? Pack years: 25.00 ??? Types: Cigarettes ??? Quit date: 1979 ??? Years since quittin.3 Smokeless Tobacco Never Used Instructions Given to Patient at Discharge: Patient Instructions Cardiac Cath Provider Discharge Instructions Procedure: Left heart catheterization, right heart catheterization, coronary angiography, bypass graft lumenography, PCI / Revascularization of vein graft Call your doctor if: Chest pain, dyspnea, pain or swelling in legs occurs. If you have non-emergentquestions between now and the time of your follow up appointments: During 8am-5pm Friday through Friday call [phone] and ask to speak to the cardiology clinic triage nurse. All other times call [phone] and ask to speak to the aircraft maintenance director clinical program consultant. Return to work: One week Driving: No driving for 24 hours after catherization Diet: low fat / low cholesterol Follow up Appointments: results technician Dr Juan Jose Mills within the next 3 weeks to review management and care strategies. Home oxygen therapy: not applicable Arrangements for VNA / home care: not applicable New Medications: start aspirin 81mg once daily. Continue plavix (aka clopidogrel) as prescribed, as well as other previously prescribed medications. Please do not hesitate to contact us with any questions or concerns. Tom Malone PA-C Interventional Cardiology [facility] Pager [phone] General Instructions None Future Appointments and Orders Future Appointments and Orders Future Appointments Provider Department Dept Phone 12/07/2020 10:40 AM Zamzam Gamboa APRN Cardiology at [facility] Arrive at: [employer] [phone] 01/10/2021 2:40 PM Ricki Traylor MD Internal Medicine at [facility] Arrive at: [employer] [phone] 03/06/2021 10:00 AM Harshil Marte MD; DILATION AND TEST, BOY; TECH, MARY ANNGANS Ophthalmology at [facility] Arrive at: [employer] [phone] Check-in: [place] [employer] [facility] . 03/06/2021 1:00 PM Harshil Marte MD Ophthalmology at [facility] Arrive at: [employer] [phone] Discharge References/Attachments PCI (Percutaneous Coronary Intervention): Post-op (Italian) Discharge Instructions following percutaneous coronary intervention (coronary stent placement): Ideally, patients with coronary artery disease should be on the following medications: 1. Aspirin 81 mg once daily 2. Beta luz 3. Cholesterol lowering therapy: statin 4. Nitroglycerin sl 5. JESSIE inhibitors 6. Plavix Your medications are listed above. If you have any questions regarding your medications, please contact your health care provider. Smoking cessation: If you are currently a smoker, you are strongly urged to stop smoking! Smoking increases the severity and incidence of heart disease, and is a risk factor for cancer and emphysema.Your healthcare provider can provide specific measures to assist you, including nicotine supplements, anti-anxiety meds, and support groups in your community. Call your doctor if: Chest pain, dyspnea, pain or swelling in legs occurs. Activity level: No heavy lifting (more than ten pounds) for 48 hours; no more than 25 pounds for two weeks. If you are working, you may return to work in one week, or as directed. Diet: Healthy heart (Low fat, low cholesterol, low sodium). Driving: No restrictions Shower/Bath: May shower; no tub bath for five days after catheterization. Wound Care: Wash with soap and water daily. Contact MD if redness, swelling, increased pain or drainage. Follow up Appointments: F/U with your PCP in 1-2 weeks, and your Supervisor [employer] P[employer] in 4-6 weeks. Please contact each office to make or confirm your appointments! BERNADINE Shelley Interventional Cardiology 11/21/20 10:34 AM [facility] Pager: [phone] documented in this encounter Discharge Instructions * Patient Instructions* Tom Malone PA - 11/17/2020 7:26 AM EDT Cardiac Cath Provider Discharge Instructions Procedure: Left heart catheterization, right heart catheterization, coronary angiography, bypass graft lumenography, PCI / Revascularization of vein graft Call your doctor if: Chest pain, dyspnea, pain or swelling in legs occurs. If you have non-emergentquestions between now and the time of your follow up appointments: During 8am-5pm Friday through Friday call [phone] and ask to speak to the cardiology clinic triage nurse. All other times call [phone] and ask to speak to the aircraft maintenance director clinical program consultant. Return to work: One week Driving: No driving for 24 hours after catherization Diet: low fat / low cholesterol Follow up Appointments: results technician Dr Juan Jose Mills within the next 3 weeks to review management and care strategies. Home oxygen therapy: not applicable Arrangements for VNA / home care: not applicable New Medications: start aspirin 81mg once daily. Continue plavix (aka clopidogrel) as prescribed, as well as other previously prescribed medications. Please do not hesitate to contact us with any questions or concerns. Tom Malone PA-C Interventional Cardiology [facility] Pager [phone] * Attachments The following attachments cannot be sent through Care Everywhere. * PCI (Percutaneous Coronary Intervention): Post-op (Italian) documented in this encounter Medications at Time of Discharge Medication Sig Dispensed Refills Start Date End Date atorvastatin (Lipitor) 40 mg Tablet Take 1 [...] for Chest pain. 25 tablet 12 05/12/2020 furosemide (Lasix) 20 mg Tablet Take 1 tablet by mouth daily. 80 tablet 3 11/17/2020 01/10/2021 lisinopriL (Prinivil;Zestril) 2.5 mg Tablet Take 1 tablet by mouth daily. 90 tablet 3 11/17/2020 12/10/2021 metoprolol tartrate (Lopressor) 50 mg Tablet Take 1 tablet by mouth 2 times daily. 180 tablet 3 11/17/2020 12/10/2021 triamcinolone (KENALOG) 0.1 % Ointment Use 2 times daily to lower extremities for 1 week, take a week off, repeat cycle if needed. 454 g 12/20/2019 01/10/2021 documented as of this encounter H&P Notes * Tom Malone PA - 11/16/2020 5:03 PM EDTSummary: Post PCI Admit H&P Post-PCI Admission History and Physical PCP: Ricki Traylor MD Referring: Zamzamnick Gamboa APRN [facility] Date of Admission: 11/16/2020 Admission Diagnosis: Coronary Artery Disease: S/p PCI PCI to svg-OM1 graft with drug eluting stent Problem List: Patient Active Problem List Diagnosis ??? ','Substernal chest pain Overview Note: Added automatically from request for surgery [id number] ??? CAD (coronary artery disease) of bypass graft ??? Conduction system disease---- has [employer] pacer. Overview Note: ?? 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 Received [employer] Accolade MRI pacemaker. ?? Aug 2018: RhythmIQ turned off and PAV and FELICITY extended to reduce ventricular pacing in context of dyspnea. ??? Vitamin D deficiency ??? Hyperlipidemia ??? Aortic valve disease--- TAVR December 2016 Overview Note: December 2016: Evolut 29 at [facility] 05/19/17 echo: no prosthetic aortic valve regurg ??? Coronary arteriosclerosis Overview Note: 1994: 4v CABG 2013: PCI of SVG 05/19/17: [facility] with PCI to mid SVG--RPDA ??? Chronic obstructive pulmonary disease ??? Prostate cancer--- treated with radical prostatectomy HPI: This 80 y.o. male is admitted with a chief complaint of CAD s/p PCI. 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 In the setting of progressive dyspnea with minimal exertion, he was referred for coronary angiography and cardiac catheterization. He had a nuclear stress test in 10/2020 which was limited in its evaluation of the inferior wall butshowed preserved LVEF and no evidence of ischemia. He has been on chronic single anti-platelet agent with Plavix 75mg once daily, including today. I have reviewed the available records, interviewed and examined the patient. This patient is admitted post PCI for IV hydration, pain management, access site management in the setting of anticoagulation, serial cardiac biomarker monitoring, telemetry monitoring, evaluation oftheir medical condition, and cardiac rehabilitation. ROS/PMHx/Fam Hx/Soc Hx: Reviewed, see outpatient note. PROCEDURE: Right heart catheterization Left heart catheterization Coronary angiography Bypass graft lumenography PCI to vein graft Access: Right Femoral Vein: 7 Fr, Right Femoral Artery: 6 Fr Ultrasound guided access, manual pressure for hemostasis ?? Preliminary findings: Fluoroscopic exam of the chest shows sternal wires, RA & RV pacer leads and a CoreValve-TAVR valve ?? Right Heart Hemodynamics RA: RV: 38/-/6 PA: 34/11/21 PCW: ? Coronary Angiography: Anatomically normal right dominant circulation ?? LMCA: Without angiographic apparent disease LAD: Minimal luminal irregularities noted, Mid - Vessel occlusion LCx: High grade proximal lesion with competitive flow in the large OM (See SVG below) RCA: Not injected ?? L Subclavian is anatomically normal without apparent disease ?? DUVAL Wzcl-ua-mwhp anastomosis to the diag is widely patent End-to-side anastomosis to the LAD is widely patent SVG-OM1 High grade proximal lesion SVG-RCA Good prox and distal anastomosis. Previously placed stent is widely patent ?? SVG-OM PCI PCI to ostial OM graft was treated with a single REBECCA with distal protection with good angiographic result. ?? Contrast 137 ml Physical Exam: BP 144/81 Pulse 66 Temp 36.2 ??C (97.2 ??F) Resp 18 Ht 172.7 cm (5' 8) Wt 90.7 kg (200 lb) SpO2 92% BMI 30.41 kg/m?? Gen: Well-appearing, NAD HEENT: No pallor, no jaundice CV: RRR, no m/g/r, JVP not elevated. Lungs: CTAB, no increased WOB Abd: Soft, NTND, +NABS Ext: Wwp, no c/c/e Vasc: 2+ radial and femoral pulses, access site c/d/i Labs: Lab Results Component Value Date WBC 5.9 05/12/2020 HGB 12.2 (L) 05/12/2020 HCT 37.4 (L) 05/12/2020 MCV 97.9 (H) 05/12/2020 PLATELET 149 05/12/2020 Lab Results Component Value Date CREATININE 1.07 11/16/2020 BUN 26 (H) 11/16/2020 NA 140 11/16/2020 K 4.8 11/16/2020 CL 102 11/16/2020 CO2 30 11/16/2020 Lab Results Component Value Date CK 273 (H) 05/19/2017 TROPONINT 0.86 (H) 05/19/2017 Assessment/ Plan: #CAD, s/p PCI to svg-OM1 Load with 325mg aspirin once now. Continue chronic 75mg daily plavix Monitor BP, lipids, access site Repeat ECG Cardiac rehab consult - Admit for overnight monitoring - Telemetry, serial ECGs, cycle cardiac biomarkers - Dual antiplatelet therapy - IVF - Monitor access site - Cardiac rehab consult - Anticipate discharge in am BERNADINE Shelley Interventional Cardiology 11/16/20 5:03 PM [facility] Pager: [phone] * Fabien Devine MD - 11/16/2020 12:02 PM EDT Vascular Surgery History and Physical HPI: Vikash Álvarez is a 80 y.o. male with CAD s/p 4v CABG (95) s/p PCI of SVG- RPDA in 2013 and againin 2017 for ISR, s/p TAVR (2016), CHB s/p PPM (2016), COPD (on nightly O2), prostate cancer s/p prostatectomy, and chronic stable angina who presents with persistent, worsening dyspnea on exertion. He reports that he has not experienced chest pain, even when he initially had his STEMI in 1994. His symptoms seem similar to him as they were prior to his redo PCI. For these symptoms, Mr. Álvarez underwent nuclear stress testing 11/02/20 which was limited in evaluating inferior wall ischemia. Mr. Álvarez was subsequently referred for left heart catheterization. Today, he feels well and denies changes to his medical history or medications. He denies F/C, N/V, SOB, CP, PND. He does get mild orthopnea which he feels relief from by laying on his side. He last took Plavix today. He has a history of mild nosebleeds when he was previously on DAPT, but no other bleeding episodes. Pertinent Cardiac history: 1. Coronary disease ?? 4v CABG in 1994 ?? PCI of SVG in 2013 ?? redo PCI due to ISR in May 2017 2. Aortic valve disease--- TAVR in December 2016 done at [facility] 3. Conduction disease--- [employer] pacemaker for CHB in December 2016 ?? Pertinent Cardiovascular Medications: Antiplatelet Plavix 75mg qD (stopped Aspirin 05/2020) Beta Blockade Metoprolol 50mg qD Lipid agent Atorvastatin 40mg qHS Anticoagulation none Other Furosemide 20mg qD, lisinopril 2.5mg qD Review of Systems: A full review encompassing at least 10 organ systems including general, neuro, pulm, cardiac, GI, , MSK, Endo, and Psych was negative other than listed in the HPI. Past Medical History: Past Medical History: Diagnosis Date ??? Aortic stenosis ??? Asbestosis ??? Cataract ??? Chronic kidney disease Kidney stones ??? COPD (chronic obstructive pulmonary disease) ??? Epidermoid cyst of skin 06/03/2017 ??? Headache ??? Hyperlipidemia ??? Ocular toxoplasmosis ??? Pacemaker 12/2016 ??? Prostate cancer ??? Retinal detachment ??? S/P CABG x 4 1994 ??? S/P TAVR (transcatheter aortic valve replacement) 12/2016 Past Surgical History: Past Surgical History: Procedure Laterality Date ??? CATARACT REMOVAL ??? CERVICAL SPINE SURGERY 2004 ??? CORONARY ARTERY BYPASS GRAFT ??? LUMBAR SPINE SURGERY ??? PROSTATECTOMY ??? RETINAL DETACHMENT SURGERY 2014 OD Social Hx: Social History Socioeconomic History ??? Marital status: Spouse name: Not on file ??? Number of children: Not on file ??? Years of education: Not on file ??? Highest education level: Not on file Occupational History ??? Not on file Tobacco Use ??? Smoking status: Former Smoker Packs/day: 1.00 Years: 25.00 Pack years: 25.00 Types: Cigarettes Quit date: 1979 Years since quittin.2 ??? Smokeless tobacco: Never Used Substance and Sexual Activity ??? Alcohol use: Yes Alcohol/week: 1.0 - 2.0 standard drinks Types: 1 - 2 Glasses of wine per week Comment: 1-2 drinks per week ??? Drug use: Never ??? Sexual activity: Not Currently Other Topics Concern ??? Do You live alone? Not Asked ??? Tobacco in Home Not Asked Social History Chrissy Lives with Mikal, 53 years. Moved to [place] in April 2017 to be near their daughter (Lisa) at her request. She is very helpful to them. Lisa is with an 11 year old daughter (Isha). They have another daughter, Maddy, recently divorces and [facility]. He and Mikal grew up and have lived in the [place] area their whole lives. 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 He likes to posey, fish, spend time with Isha, go to the beach, make art with [employer]. Wekeep very busy. No reid practice. They have travelled the world extensively. Enjoys [place]. Social Determinants of Health Financial Resource Strain: ??? Difficulty of Paying Living Expenses: Food Insecurity: ??? Worried About Running Out of Food in the Last Year: ??? Ran Out of Food in the Last Year: Transportation Needs: ??? Lack of Transportation (Medical): ??? Lack of Transportation (Non-Medical): Physical Activity: ??? Days of Exercise per Week: ??? Minutes of Exercise per Session: Stress: ??? Feeling of Stress : Social Connections: ??? Frequency of Communication with Friends and Family: ??? Frequency of Social Gatherings with Friends and Family: ??? Attends Alevism Services: ??? Active Member of Clubs or Organizations: ??? Attends Club or Organization Meetings: ??? Marital Status: Intimate Partner Violence: ??? Fear of Current or Ex-Partner: ??? Emotionally Abused: ??? Physically Abused: ??? Sexually Abused: Family Hx: Negative for Thrombosis, Bleeding Disorders Family History Problem Relation Age of Onset ??? Hypertension Father ??? Heart Disease Father ??? Diabetes Father ??? Cerebrovascular Accident Father ??? Cataracts Father ??? Macular Degeneration Father ??? Heart Failure Mother ??? Hypertension Mother ??? Skin Cancer Neg Hx ??? Cancer Neg Hx ??? Glaucoma Neg Hx ??? Retinal Detachment Neg Hx ??? Strabismus Neg Hx ??? Thyroid Disease Neg Hx Medications: No current facility-administered medications on file prior to encounter. Current Outpatient Medications on File Prior to Encounter Medication Sig Dispense Refill ??? diphenhydrAMINE-acetaminophen (TYLENOL PM) 25-500 mg Tablet Take by mouth daily as needed (Bedtime). ??? clopidogreL (Plavix) 75 mg Tablet Take 1 tablet by mouth once daily 90 tablet 0 ??? metoprolol tartrate (Lopressor) 50 mg Tablet Take 1 tablet by mouth twice daily 180 tablet 0 ??? lisinopriL (Prinivil;Zestril) 2.5 mg Tablet Take 1 tablet by mouth once daily 90 tablet 3 ??? atorvastatin (Lipitor) 40 mg Tablet TAKE 1 TABLET BY MOUTH ONCE DAILY IN THE EVENING 90 tablet 0 ??? furosemide (Lasix) 20 mg Tablet Take 1 tablet by mouth once daily 90 tablet 0 ??? nitroGLYcerin (Nitrostat) 0.4 mg Tablet, Sublingual Place 1 tablet under the tongue every 5 minutes as needed for Chest pain. 25 tablet 12 ??? triamcinolone (KENALOG) 0.1 % Ointment Use 2 times daily to lower extremities for 1 week, take a week off, repeat cycle if needed. 454 g 0 Allergies: No Known Allergies Physical Exam: Vital Signs: Temp: [36.2 ??C (97.2 ??F)] Heart Rate: [59] Resp: [20] BP: (118)/(66) SpO2: [98 %] Heart Rate from SpO2: -- BMI: Weight: 90.7 kg (200 lb) BMI (Calculated): 30.41 BMI Classification: Obese General: alert, cooperative, NAD, resting comfortably HEENT: normocephalic, atraumatic, EOMI CVS: Regular rate and rhythm, no murmurs rubs or gallops Pulm: Clear bilaterally to auscultation Abd: soft, non tender, non distended Ext: Bilateral groin creases clean and dry, BLE wwp. Neuro: Grossly nonfocal, moving all extremities. Vascular Exam: R L Radial 2/2 2/2 Femoral 2/2 2/2 DP 0/2 2/2 PT 1/2 1/2 Labs: Recent Labs 11/16/20 1000 NA 140 K 4.8 CL 102 CO2 30 BUN 26* CREATININE 1.07 EKG: pending 08/16/20 Cardiac Device Check: Normal device function 11/02/20 Nuclear Pharmacologic Stress Test : FINDINGS: ?? No definite fixed or reversible perfusion defects. Bowel activity adjacent to the inferior wall somewhat limits evaluation of this region. ?? Functional analysis:?? Myocardial function: Normal wall motion in all regions. wLeft ventricular ejection fraction: 61 % (normal greater than than 50%). ?? INCIDENTAL CT FINDINGS: Partially visualized calcified pleural plaque in both lungs, which may be related to prior asbestos exposure. Status post CABG and aortic valve stent placement. Partially visualized pacemaker wires. Median sternotomy wires are present. ?? IMPRESSION 1. No definite ischemia or scar. Bowel activity adjacent to the inferior wall somewhat limits evaluation of this region. 2. Normal regional and global LV function. ?? Assessment and Plan: Vikash Álvarez is a 80 y.o. male s/p 4vCABG and s/p PCI x2 who presents for C and coronary angiography. Plan to proceed as scheduled. ASA 3 Mal 3 Took Plavix 75mg today. No contraindication for DAPT Consent signed FULL Code Mary Palomo MD 11/16/2020 12:33 PM Patient seen and examined by me and discussed with Dr. Palomo who's note reflects our findings andplan Fabien Devine MD retail store clerk Pager 2020 documented in this encounter Miscellaneous Notes * Consult Note - Nurys Guerrero RN - 11/17/2020 9:31 AM EDT [facility] Vikash Álvarez was seen today regarding participation in the outpatient Phase 2 Cardiac Rehabilitation at [facility] in [place], [place]. The patient agrees to a referral to this program. The referral will be sent at discharge and the patient should be contacted by the Program within 1- 2 weeks from discharge. * Brief Op Note - Fabien Devine MD - 11/16/2020 3:48 PM EDT Preliminary Cardiac Catheterization Procedure Note: Patient Name: Vikash Álvarez : [id number] MR#: [id number] Case Date: 11/16/2020 Jukebox Checker: * Fabien Devine MD - Primary * Tom Malone PA - Physician Hospitality Associate Preoperative diagnosis: Substernal chest pain with dyspnea Postoperative diagnosis: Substernal chest pain with dyspnea Preliminary Cardiac Catheterization Procedure Note: Procedure(s) performed: Coronary. SVG, subclavian and GORDON Angiography, Right & Left Heart Cath, PCI-Stent Baseline Frailty Assessment: Definitions from [place] [employer] of Health and Aging Clinical Frailty Scale: / 3: MANAGING WELL: well-controlled medical problems, no exercise more than routine walking A time-out was conducted prior to the start of the procedure to verify the correct patient and procedure, procedure location, and all relevant critical information. Access: Right Femoral Vein: 7 Fr, Right Femoral Artery: 6 Fr Preliminary findings: Fluoroscopic exam of the chest shows sternal wires, RA & RV pacer leads and a CoreValve-TAVR valve Right Heart Hemodynamics RA: RV: 38/-/6 PA: 34// PCW: Coronary Angiography: Anatomically normal right dominant circulation LMCA: Without angiographic apparent disease LAD: Minimal luminal irregularities noted, Mid - Vessel occlusion LCx: High grade proximal lesion with competitive flow in the large OM (See SVG below) RCA: Not injected L Subclavian is anatomically normal without apparent disease DUVAL Xszp-af-ahpy anastomosis to the diag is widely patent End-to-side anastomosis to the LAD is widely patent SVG-OM1 High grade proximal lesion SVG-RCA Good prox and distal anastomosis. Previously placed stent is widely patent SVG-OM PCI PCI to ostial OM graft was treated with a single REBECCA with distal protection with good angiographic result. Contrast 137 ml The patient tolerated the procedure well and was transferred from the cardiac catheterization lab to the CRU in stable condition without apparent complications with sheaths in placed. Full report to follow. FABIEN DEVINE MD retail store clerk Pager 2020 documented in this encounter Plan of Treatment Upcoming Encounters Date Type Department Care Team (Late st Contact Info) Description 08/31/2024 10:00 AM EST Hospital Encounter [place] [address] Arrived documented as of this encounter Procedures Procedure Name Priority Date/Time Associated Diagnosis Comments EKG 12-LEAD Routine 11/16/2020 3:50 PM EDT Substernal chest pain Coronary arteriosclerosis Coronary artery disease involving coronary bypass graft of [place] heart, angina presence unspecified CARDIAC CATHETERIZATION Routine 11/16/2020 3:42 PM EDT Substernal chest pain EKG 12-LEAD STAT 11/16/2020 12:45 PM EDT Coronary arteriosclerosis HC VENIPUNCTURE STAT 11/16/2020 10:00 AM EDT documented in this encounter Results * EKG 12 Lead (11/16/2020 3:50 PM EDT) Ventricular rate 63 BPM MUSE SYSTEM Atrial Rate 63 BPM MUSE SYSTEM P-R Interval 206 ms MUSE SYSTEM QRS Duration 96 ms MUSE SYSTEM Q-T Interval 448 ms MUSE SYSTEM QTC Calculated (Bezet) 458 ms MUSE SYSTEM Calculated P [place] 54 degrees MUSE SYSTEM Calculated R [place] -11 degrees MUSE SYSTEM Calculated T [place] 74 degrees MUSE SYSTEM INTERPRETATION Normal sinus rhythm Low voltage QRS Cannot rule out Anterior infarct (cited on or before 18-MAY-2017) Abnormal ECG When compared with ECG of 16-NOV-2020 12:45, Sinus rhythm has replaced Electronic atrial pacemaker Questionable change in initial forces of Anteroseptal leads Confirmed by MD Haas Daniel ([id number]) on 11/16/2020 5:07:14 PM MUSE SYSTEM 11/16/2020 3:50 PM EDT 11/16/2020 5:07 PM EDT Harshil Zuniga MD ECG ORDERABLES MUSE SYSTEM * CARDIAC CATHETERIZATION (11/16/2020 3:42 PM EDT) Anatomical Region Laterality Modality Other Narrative 11/16/2020 6:59 PM EDT ?[facility] ? Cardiac Catheterization/Intervention Report ? Patient Name: Henri, Vikash J. ? Procedure Date: 11/16/2020 ? A #: [id number] ? Primary Physician: Fabien Devine V ? Case #: [id number] ? File Name: [id number] ? Catheterization Order Number: [id number] ? [facility] ? Final Report [place], [place] ? Patient Name: ? Vikash Álvarez ?ID#: ?[id number] ? : ?1940 ? Procedure Date: ? November 16, 2020 ?Case #: ? [id number] ? Room: ? 6 ? Case Physician: ? Fabien Devine M.D. ? Start: ?14:11 ? Admission: ??11/16/2020 ? Referring ? Zamzam Gamboa APRN ?Discharge: ??11/17/2020 ? Physicians: ?Ricki Traylor M.D. ? Procedures: ?* Coronary Angiography ?* Left Heart Catheterization ?* Bypass Graft Study ?* Right Heart Catheterization ?* Oximetry ?* Bypass Graft Stent Insertion ?* Bypass Graft Embolic Protection/Thrombectomy ?* Access Site Angiography ? History ?Vikash Álvarez is an 80 year old man. He has hypertension and a family ?history of coronary artery disease. The patient's smoking status is ?Former. He has hypercholesterolemia managed by diet and lipid therapy. ?The patient has a prior history of coronary artery disease. He is status ?post a remote myocardial infarction. The patient had a remote coronary ?intervention procedure. He had remote coronary artery bypass surgery. The ?patient has a history of a prior aortic valve replacement with a ?biological prosthesis. He also has a history of cancer. Prior to the ?initiation of this procedure, the patient was designated as ASA Class ?III. The CSHA clinical frailty scale is 4: Vulnerable. ? Diagnostic Tests: ?Prior Coronary Angiography: ? LV ejection fraction within 6 months is 59%. ?Electrocardiography: ? EKG was assessed by ECG. EKG was Abnormal. EKG showed other ? abnormality. ?Stress or Imaging Studies: ? A stress test with SPECT imaging was performed on 10/25/2020 and was ? Negative. ?Medications Prior to Procedure: ? Angiotensin Converting Enzyme Inhibitor, Aspirin, Beta Luz and ? Statin. ? Indications for Diagnostic Cath: ?The priority of the diagnostic procedure was Elective. The indication for ?the clinical laboratory science professor visit is worsening angina and other indication. Chest pain ?symptom assessment was: Atypical Angina. ? Technique: ?A 6Fr sheath was inserted in the right femoral artery utilizing the ?Seldinger technique. A 7Fr sheath was inserted in the right femoral vein ?utilizing the Seldinger technique. The left coronary artery was injected ?utilizing a 5Fr JL 4 catheter. A 5Fr JR 4 catheter was used to inject the ?right coronary artery. The bypass graft was injected utilizing a 5Fr ?MULTIPURPOSE A-2 catheter. A 5Fr GORDON catheter was used to inject the ?mammary artery. Right heart catheterization was performed utilizing a 7Fr ?BALLOON WEDGE catheter. Left ventricular pressure was performed with a ?5Fr JL 4 catheter. The saphenous vein graft was injected utilizing a 5Fr ?JR 4 catheter. Bypass graft stent insertion and bypass graft embolic ?protection/thrombectomy were performed and the equipment utilized will be ?described in the intervention summary section. 4,500 units of heparin ?were administered. A total of 200cc of Omnipaque were opened, 137cc of ?Omnipaque were administered and 63cc of Omnipaque were wasted. Radiation: ?Fluoro time was 10.6 minutes, dose area product was 89,700 mGYcm2 and air ?kerma was 1,157 mGY. See the case log for additional details. ?The patient received the following medications prior to and during the ?procedure: ? Unfractionated Heparin. ? Hemodynamics: ?Right Heart Pressures ? Resting: ? Syst Diast ? EDP ?a ?v ? m ?RA ? 6 ?9 ? 5 ?RV 38 ?6 ?PA 34 ?11 ?21 ?PCW ?8 ?8 ? 6 ? Hemodynamic Profile: ?Profile 1 ?CO ? 5.65 ?CI ? 2.77 ?TSR ? 1,458 ?SVR ? 1,388 ?TPR ?297 ?PVR ?212 ?Technique ?Estimated [place] ?Left Heart Pressures ? Resting: ? Syst Diast ? EDP ?a ?v ? m ?Ao 148 ?? 69 ?103 ?LV 146 ? 11 ? Oximetry: ?Location ? %Sat ?Location ?%Sat ?Superior Vena Cava ? 64.0 ?Right Pulmonary ? 61.0 ? Artery ?Peripheral Arterial ?90.0 ?No evidence of a significant shunt was noted. ? Coronary Angiography: ?Dominance: Right ?Left Main ? There was mild diffuse (<=25% stenosis) disease of the entire vessel ? segment of the left main artery. ?Left Anterior Descending ? There was moderate diffuse (<=50% stenosis) disease of the proximal ? segment of the left anterior descending artery (LAD). ??The LAD was ? large. ??Distal flow was via a bypass graft. ??The mid segment of the ? LAD had a single discrete total occlusion. ??Distal flow was via a ? bypass graft. ?Left Circumflex ? There was an 80% long segmental stenosis of the proximal segment of ? the left circumflex artery (LCX) proximal to the insertion of a ? bypass graft. ??Distal flow was normal and was via a bypass graft. ? The distal vessel was large. ?Right Coronary Artery ? This vessel was not injected. ? There was a single discrete total occlusion of the mid segment of ? the right coronary artery (RCA). ??Distal flow was normal and was via ? a bypass graft. ??The distal vessel was large. ? Bypass Grafts: ?There was a total of three bypass grafts evaluated during this procedure. ?1. ?? Left internal mammary artery graft to the LAD ? There was a left internal mammary artery graft with a single ? anastomosis to the left anterior descending artery (LAD). ? There was no evidence of obstruction in this graft. Distal flow was ? normal. ?2. ?? Saphenous vein graft to the RPDA ? There was a saphenous vein graft with a single anastomosis to the ? right posterior descending branch (RPDA) of the RCA. ? There was no evidence of obstruction in this graft. Distal flow was ? normal. ? Patent stent from previous PCI in SVG-rpda. ?3. ?? Saphenous vein graft to the OM1 ? There was a saphenous vein graft with a single anastomosis to the ? first obtuse marginal branch (OM1) of the LCX. ? There was a 70% single discrete stenosis of the proximal portion of ? the segment of this graft between the origin of this graft and the ? OM1. Distal flow was normal. ? Indication for Intervention: ?Coronary intervention was indicated for treatment of stable angina. The ?priority for the procedure was Elective. The NCDR indication for the ?procedure was Stable angina. Syntax Score was High. Right Heart ?catheterization was initiated for Chronic systolic (congestive) heart ?failure (I50.22). ? Intervention Summary: ?Saphenous vein graft to the OM1 ? Between the origin of this graft and the OM1 - Proximal 70% ? Embolic protection and stent insertion were performed on the ? 70% stenosis in the proximal portion of the segment of this ? graft between the origin of this graft and the OM1. This was a ? de deshaun lesion. According to the ACC/AHA classification ? system, this lesion was a type B2 moderate risk lesion. ? Primary prevention of restenosis was the indication for stent ? insertion. A guidewire was placed across this lesion. Vessel ? flow pre intervention was JULIO 3. Lesion length was 14mm. ? Embolic protection was accomplished through a 6 Fr AL 0.75 ? guide utilizing a filter wire. ? Stent insertion was accomplished through a 6 Fr. AL 0.75 ? guide. ??The lesion was predilated with a 2.50mm EMERGE 15 MM ? balloon with a maximum inflation pressure of 14 atmospheres. ? A premounted 2.75 x 16 mm Synergy XD (REBECCA) was deployed with a ? maximum inflation pressure of 18 atmospheres. ??Following stent ? deployment, the lesion was dilated using a 3.25mm NC EMERGE 08 ? MM ??balloon with a maximum inflation pressure of 20 ? atmospheres. ? The final outcome was defined as successful. A coronary ? arteriolar vasodilator was administered as part of the ? intervention on this lesion. There was no residual stenosis ? following this intervention. The final JULIO flow was 3. ? Vascular Access: ?Vascular Access Management: ? Manual Compression of the right femoral artery access site was ? performed. ? Manual Compression of the right femoral vein access site was ? performed. ? Dual Antiplatelet (DAPT) Recommendations: ?Drug eluting stent (REBECCA) inserted for stable ischemic heart disease ?(SIHD). ?Patient was on chronic DAPT on arrival to the clinical laboratory science professor. ?Recommended anti-platelet/anti-thrombotic regimen: ?Start aspirin 81 mg daily now and continue for indefinitely. ?Continue clopidogrel 75 mg daily for indefinitely. ?These recommendations are made at the time of the intervention. Patient ?and provider preferences or a changing clinical situation may require ?modification of this regimen. Consult [facility] for ?questions. ?The 1 year bleeding risk as calculated by the PRECISE DAPT score is High ?risk. ?This patient may be at high bleeding risk. In patients treated with DAPT ?after coronary stent implantation who develop a high risk of bleeding, or ?are at high risk of severe bleeding complication, or develop significant ?overt bleeding, discontinuation of P2Y12 inhibitor therapy after 3 months ?for stable ischemic heart disease (SIHD) or after 6 months for acute ?coronary syndrome (ACS) may be reasonable. ? Conclusions: ?* Obstructive disease of the LAD, LCX and RCA ?* Nonobstructive disease of the LM ?* Patent left internal mammary artery graft to the LAD ?* Patent saphenous vein graft to the RPDA ?* Obstructive disease of the saphenous vein graft to the OM1 ?* No evidence of a significant shunt ?* Successful stent insertion of the proximal portion of the segment of ?the SVG between origin and OM1 utilizing embolic protection ?* See Dual Antiplatelet (DAPT) Recommendations above ? Complications/Events: ?The patient had no complications during these procedures. ? Comments: ?Access: ??Right Femoral Vein: ??7 Fr, Right Femoral Artery: ??6 Fr ?Preliminary findings: ?Fluoroscopic exam of the chest shows sternal wires, RA & RV pacer leads ?and a CoreValve-TAVR valve ?Right Heart Hemodynamics ?RA: ?6/9/6 ?RV: ?38/-/6 ?PA: ?34/11/21 ?PCW: ? 8/8/6 ?Coronary Angiography: ?Anatomically normal right dominant circulation ?LMCA: ? Without angiographic apparent disease ?LAD: ?Minimal luminal irregularities noted, Mid - Vessel ?occlusion ?LCx: ? High grade proximal lesion with competitive flow in ?the large OM (See SVG below) ?RCA: ?Not injected ?L Subclavian is anatomically normal without apparent disease ?DUVAL ?Uxsq-vr-fmtm anastomosis to the diag is widely patent ?End-to-side anastomosis to the LAD is widely patent ?SVG-OM1 ? High grade proximal lesion ?SVG-RCA ?Good prox and distal anastomosis. ?Previously placed stent is widely patent ?SVG-OM PCI ?PCI to ostial OM graft was treated with a single REBECCA with distal ?protection with good angiographic result. ?Contrast ?137 ml. ?The attending physician was present for the entire procedure. ?Dr. Fabien Devine M.D. was present during the moderate sedation ?intraservice time as documented by the sedation nurse. ??Case time = 01:28. ?Dr. Fabien Devine M.D. performed the coronary angiography, left heart ?catheterization, right heart catheterization, oximetry, bypass graft study, ?stent insertion-bypass graft, access site angiography and embolic ?protection/thrombectomy-bypass graft. ? Fabien V Devine, M.D. ? Electronically Signed by: Fabien V Devine, M.D. ? Report Finalized: 11/16/2020 ??18:55 ? Report Last Ammended: 12/14/2020 ??14:15 ? Procedure Note Fabien Devine MD - 12/14/2020 [facility] Cardiac Catheterization/Intervention Report Patient Name: Vikash Álvarez Procedure Date: 11/16/2020 A #: [id number] Primary Physician: Fabien Devine V Case #: [id number] File Name: [id number] Catheterization Order Number: [id number] [facility] FinalReport [place], [place] Patient Name: Vikash Agustin Henri ID#:[id number] :1940 Procedure Date: November 16, 2020 Case #: [id number] Room: 6 Case Physician: Fabien Devine M.D. Start: 14:11 Admission:11/16/2020 Referring Zamzam Gamboa APRN Discharge:11/17/2020 Physicians: Ricki Traylor M.D. Procedures: * Coronary Angiography * Left Heart Catheterization * Bypass Graft Study * Right Heart Catheterization * Oximetry * Bypass Graft Stent Insertion * Bypass Graft Embolic Protection/Thrombectomy * Access Site Angiography History Vikash Álvarez is an 80 year old man. He has hypertension and afamily history of coronary artery disease. The patient's smoking status is Former. He has hypercholesterolemia managed by diet and lipidtherapy. The patient has a prior history of coronary artery disease. He isstatus post a remote myocardial infarction. The patient had a remotecoronary intervention procedure. He had remote coronary artery bypasssurgery. The patient has a history of a prior aortic valve replacement with a biological prosthesis. He also has a history of cancer. Prior to the initiation of this procedure, the patient was designated as ASAClass III. The [facility] clinical frailty scale is 4: Vulnerable. Diagnostic Tests: Prior Coronary Angiography: LV ejection fraction within 6 months is 59%. Electrocardiography: EKG was assessed by ECG. EKG was Abnormal. EKG showed other abnormality. Stress or Imaging Studies: A stress test with SPECT imaging was performed on 10/25/2020nd was Negative. Medications Prior to Procedure: Angiotensin Converting Enzyme Inhibitor, Aspirin, Beta Blockerand Statin. Indications for Diagnostic Cath: The priority of the diagnostic procedure was Elective. Theindication for the clinical laboratory science professor visit is worsening angina and other indication. Chestpain symptom assessment was: Atypical Angina. Technique: A 6Fr sheath was inserted in the right femoral artery utilizing the Seldinger technique. A 7Fr sheath was inserted in the right femoralvein utilizing the Seldinger technique. The left coronary artery wasinjected utilizing a 5Fr JL 4 catheter. A 5Fr JR 4 catheter was used toinject the right coronary artery. The bypass graft was injected utilizing a 5Fr MULTIPURPOSE A-2 catheter. A 5Fr GORDON catheter was used to inject the mammary artery. Right heart catheterization was performed utilizinga 7Fr BALLOON WEDGE catheter. Left ventricular pressure was performed witha 5Fr JL 4 catheter. The saphenous vein graft was injected utilizing a5Fr JR 4 catheter. Bypass graft stent insertion and bypass graft embolic protection/thrombectomy were performed and the equipment utilizedwill be described in the intervention summary section. 4,500 units ofheparin were administered. A total of 200cc of Omnipaque were opened, 137ccof Omnipaque were administered and 63cc of Omnipaque were wasted.Radiation: Fluoro time was 10.6 minutes, dose area product was 89,700 [id number] air kerma was 1,157 mGY. See the case log for additional details. The patient received the following medications prior to and duringthe procedure: Unfractionated Heparin. Hemodynamics: Right Heart Pressures Resting: Syst Diast EDP a v m RA 6 9 5 RV 38 6 PA 34 11 21 PCW 8 8 6 Hemodynamic Profile: Profile 1 CO 5.65 CI 2.77 TSR 1,458 SVR 1,388 TPR 297 PVR 212 Technique Estimated [place] Left Heart Pressures Resting: Syst Diast EDP a v m Ao 148 69 103 LV 146 11 Oximetry: Location %Sat Location %Sat Superior Vena Cava 64.0 Right Pulmonary 61.0 Artery Peripheral Arterial 90.0 No evidence of a significant shunt was noted. Coronary Angiography: Dominance: Right Left Main There was mild diffuse (<=25% stenosis) disease of the entirevessel segment of the left main artery. Left Anterior Descending There was moderate diffuse (<=50% stenosis) disease of theproximal segment of the left anterior descending artery (LAD). The LADwas large. Distal flow was via a bypass graft. The mid segment ofthe LAD had a single discrete total occlusion. Distal flow was viaa bypass graft. Left Circumflex There was an 80% long segmental stenosis of the proximalsegment of the left circumflex artery (LCX) proximal to the insertion of a bypass graft. Distal flow was normal and was via a bypassgraft. The distal vessel was large. Right Coronary Artery This vessel was not injected. There was a single discrete total occlusion of the mid segmentof the right coronary artery (RCA). Distal flow was normal andwas via a bypass graft. The distal vessel was large. Bypass Grafts: There was a total of three bypass grafts evaluated during thisprocedure. 1. Left internal mammary artery graft to the LAD There was a left internal mammary artery graft with a single anastomosis to the left anterior descending artery (LAD). There was no evidence of obstruction in this graft. Distal flowwas normal. 2. Saphenous vein graft to the RPDA There was a saphenous vein graft with a single anastomosis tothe right posterior descending branch (RPDA) of the RCA. There was no evidence of obstruction in this graft. Distal flowwas normal. Patent stent from previous PCI in SVG-rpda. 3. Saphenous vein graft to the OM1 There was a saphenous vein graft with a single anastomosis tothe first obtuse marginal branch (OM1) of the LCX. There was a 70% single discrete stenosis of the proximalportion of the segment of this graft between the origin of this graft andthe OM1. Distal flow was normal. Indication for Intervention: Coronary intervention was indicated for treatment of stable angina.The priority for the procedure was Elective. The NCDR indication for the procedure was Stable angina. Syntax Score was High. Right Heart catheterization was initiated for Chronic systolic (congestive)heart failure (I50.22). Intervention Summary: Saphenous vein graft to the OM1 Between the origin of this graft and the OM1 - Proximal 70% Embolic protection and stent insertion were performed onthe 70% stenosis in the proximal portion of the segment ofthis graft between the origin of this graft and the OM1. Thiswas a de deshaun lesion. According to the ACC/AHA classification system, this lesion was a type B2 moderate risk lesion. Primary prevention of restenosis was the indication forstent insertion. A guidewire was placed across this lesion.Vessel flow pre intervention was JULIO 3. Lesion length was 14mm. Embolic protection was accomplished through a 6 Fr AL0.75 guide utilizing a filter wire. Stent insertion was accomplished through a 6 Fr. AL 0.75 guide. The lesion was predilated with a 2.50mm EMERGE 15MM balloon with a maximum inflation pressure of 14atmospheres. A premounted 2.75 x 16 mm Synergy XD (REBECCA) was deployedwith a maximum inflation pressure of 18 atmospheres. Followingstent deployment, the lesion was dilated using a 3.25mm NCEMERGE 08 MM balloon with a maximum inflation pressure of 20 atmospheres. The final outcome was defined as successful. A coronary arteriolar vasodilator was administered as part of the intervention on this lesion. There was no residualstenosis following this intervention. The final JULIO flow was 3. Vascular Access: Vascular Access Management: Manual Compression of the right femoral artery access site was performed. Manual Compression of the right femoral vein access site was performed. Dual Antiplatelet (DAPT) Recommendations: Drug eluting stent (REBECCA) inserted for stable ischemic heart disease (SIHD). 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 Recommended anti-platelet/anti-thrombotic regimen: Start aspirin 81 mg daily now and continue for indefinitely. Continue clopidogrel 75 mg daily for indefinitely. These recommendations are made at the time of the intervention.Patient and provider preferences or a changing clinical situation mayrequire modification of this regimen. Consult [facility]. The 1 year bleeding risk as calculated by the PRECISE DAPT score isHigh risk. This patient may be at high bleeding risk. In patients treated withDAPT after coronary stent implantation who develop a high risk ofbleeding, or are at high risk of severe bleeding complication, or developsignificant overt bleeding, discontinuation of P2Y12 inhibitor therapy after 3months for stable ischemic heart disease (SIHD) or after 6 months for acute coronary syndrome (ACS) may be reasonable. Conclusions: * Obstructive disease of the LAD, LCX and RCA * Nonobstructive disease of the LM * Patent left internal mammary artery graft to the LAD * Patent saphenous vein graft to the RPDA * Obstructive disease of the saphenous vein graft to the OM1 * No evidence of a significant shunt * Successful stent insertion of the proximal portion of the segmentof the SVG between origin and OM1 utilizing embolic protection * See Dual Antiplatelet (DAPT) Recommendations above Complications/Events: The patient had no complications during these procedures. Comments: Access: Right Femoral Vein: 7 Fr, Right Femoral Artery: 6 Fr Preliminary findings: Fluoroscopic exam of the chest shows sternal wires, RA & RV pacerleads and a CoreValve-TAVR valve Right Heart Hemodynamics RA: 6 RV: 38/-/6 PA: 34/11/21 PCW: 8/ Coronary Angiography: Anatomically normal right dominant circulation LMCA: Without angiographic apparent disease LAD: Minimal luminal irregularities noted, Mid -Vessel occlusion LCx: High grade proximal lesion with competitiveflow in the large OM (See SVG below) RCA: Not injected L Subclavian is anatomically normal without apparent disease DUVAL [id number] anastomosis to the diag is widelypatent End-to-side anastomosis to the LAD is widely patent SVG-OM1 High grade proximal lesion SVG-RCA Good prox and distal anastomosis. Previously placed stent is widely patent SVG-OM PCI PCI to ostial OM graft was treated with a single REBECCA with distal protection with good angiographic result. Contrast 137 ml. The attending physician was present for the entire procedure. Dr. Fabien Devine M.D. was present during the moderate sedation intraservice time as documented by the sedation nurse. Case time =01:28. Dr. Fabien Devine M.D. performed the coronary angiography, leftheart catheterization, right heart catheterization, oximetry, bypass graftstudy, stent insertion-bypass graft, access site angiography and embolic protection/thrombectomy-bypass graft. Fabien Devine M.D. Electronically Signed by: Fabien Devine M.D. Report Finalized: 11/16/2020 18:55 Report Last Ammended: 12/14/2020 14:15 Fabien Hogue MD CARDIAC CATH ORDERAB LES * EKG 12 Lead (11/16/2020 12:45 PM EDT) Ventricular rate 60 BPM MUSE SYSTEM Atrial Rate 60 BPM MUSE SYSTEM P-R Interval 236 ms MUSE SYSTEM QRS Duration 90 ms MUSE SYSTEM Q-T Interval 440 ms MUSE SYSTEM QTC Calculated (Bezet) 440 ms MUSE SYSTEM Calculated P [place] 46 degrees MUSE SYSTEM Calculated R [place] -7 degrees MUSE SYSTEM Calculated T [place] 97 degrees MUSE SYSTEM INTERPRETATION Atrial-paced rhythm with prolonged AV conduction Low voltage QRS Septal infarct (cited on or before 18-MAY-2017) Abnormal ECG When compared with ECG of 12-MAY-2020 10:05, No significant change was found Confirmed by MD Haas Daniel ([id number]) on 11/16/2020 4:53:57 PM MUSE SYSTEM 11/16/2020 12:4 5 PM EDT 11/16/2020 4:53 PM EDT Harshil Zuniga MD ECG ORDERABLES MUSE SYSTEM * (ABNORMAL) BMP w/fasting Glucose (11/16/2020 10:00 AM EDT) Glucose Fasting 92 65 - 99 mg/dL [facility] Comment: ?Fasting* Glucose Interpretive Criteria Normal ?65-99 mg/dL Impaired Fasting glucose ?100-125 mg/dL Consistent with Diabetes Mellitus ? >or= 126 mg/dL *Fasting is defined as no caloric intake for at least 8 hours In the absence of unequivocal hyperglycemia a plasma glucose value of >or= 126 mg/dL should be repeated on a subsequent day. Diagnosis and Classification of Diabetes Mellitus, Position Statement from the [place] [employer]. ??Diabetes Care, Volume 33, Supplement 1, Aug 2009 Blood Urea Nitrogen 26(H) 10 - 20 mg/dL [facility] Creatinine 1.07 0.80 - 1.50 mg/dL [facility] Sodium 140 135 - 145 mmol/L [facility] Potassium 4.8 3.5 - 5.0 mmol/L [facility] Comment: Please note: ??Patients with WBC >100,000 may have falsely elevated Potassium levels. ??For accurate Potassium quantification in these patients send serum separator tube (gold top) for subsequent determinations. ??Contact the Clinical Chemistry Laboratory if there are any questions. Chloride 102 98 - 107 mmol/L [facility] Carbon Dioxide 30 22 - 31 mmol/L [facility] Anion Gap 8 5 - 15 mmol/L [facility] Calcium 9.4 8.5 - 10.5 mg/dL [facility] Est Glomerular Filtration Rate 65 >=60 mL/min/1. 73 m?? [facility] Comment: This patient? s estimated glomerular filtration rate (eGFR) is between 65 mL/min/1.73 m2 (patients with less muscle mass per kg body weight) and 75 mL/min/1.73 m2 (patients with more muscle mass per kg body weight) as determined by the CKD-EPI equation. Assessment of eGFR is not appropriate when creatinine concentrations are rapidly changing. For clinical decisions where creatinine clearance will affect therapy, a 24-hour urine creatinine clearance may be advised. Assignment of CKD stage 1 - 5 for patients with an eGFR near the transition point between stages may be based on clinical assessment of muscle mass and symptoms in addition to eGFR. Blood specimen (specimen) 11/16/2020 10:00 AM EDT 11/16/2020 10:12 AM EDT Narrative Resulting Agency Comment Spec In Lab [facility] ORDERAB LES [facility] [place] [place] [address] documented in this encounter Visit Diagnoses Diagnosis Substernal chest pain- Primary Precordial pain Substernal chest pain Precordial pain Coronary arteriosclerosis Coronary atherosclerosis of unspecified type of vessel, [place] or graft Coronary artery disease involving coronary bypass graft of [place] heart, angina presence unspecified S/P coronary artery stent placement Postsurgical percutaneous transluminal coronary angioplasty status CAD (coronary artery disease) of bypass graft Coronary atherosclerosis of unspecified type of bypass graft Substernal chest pain Precordial pain documented in this encounter Admitting Diagnoses Diagnosis Substernal chest pain Precordial pain CAD (coronary artery disease) of bypass graft Coronary atherosclerosis of unspecified type of bypass graft documented in this encounter Administered Medications Inactive Administered Medications - up to 3 most recent administrations Medication Order MAR Action Action Date Dose Rate Site aspirin chewable tablet 324 mg 324 mg, Oral, ONCE, 1 dose, On Fri11/16/20 at 1830, Cath (Intra-Procedure), Routine Given 11/16/2020 6:02 PM EDT 324 mg aspirin chewable tablet 81 mg 81 mg, Oral, DAILY, First dose on Fri11/17/20 at 0900, Until Discontinued, Routine Given 11/17/2020 9:31 AM EDT 81 mg atorvastatin (Lipitor) tablet 40 mg 40 mg, Oral, EVERY EVENING, First dose on Fri11/16/20 at 2044, Until Discontinued, Routine Given 11/16/2020 9:47 PM EDT 40 mg clopidogreL (Plavix) tablet 75 mg 75 mg, Oral, DAILY, First dose on Fri11/16/20 at 2044, Until Discontinued, Routine Given 11/17/2020 9:31 AM EDT 75 mg Given 11/16/2020 9:46 PM EDT 75 mg furosemide (Lasix) tablet 20 mg 20 mg, Oral, DAILY, First dose on Fri11/17/20 at 0900, Until Discontinued, Routine Given 11/17/2020 9:31 AM EDT 20 mg lidocaine (Xylocaine) 1% (10 mg/mL) injection 3 mg 3 mg (0.3 mL), Subcutaneous, ONCE PRN, 1 dose, Starting on Martha 11/16/20 at 1948, Until Fri11/17/20 at 1356, with discomfort with PIV insertion, Cath (Day of Procedure), Routine lisinopriL (Prinivil;Zestril) tablet 2.5 mg 2.5 mg, Oral, DAILY, First dose on Martha 11/16/20 at 2045, Until Discontinued, Routine Given 11/17/2020 9:30 AM EDT 2.5 mg Given 11/16/2020 9:47 PM EDT 2.5 mg metoprolol tartrate (Lopressor) tablet 50 mg 50 mg, Oral, EVERY 12 HOURS SCHEDULED (2 times per day), First dose on Martha 11/16/20 at 2100, Until Discontinued, Routine Given 11/16/2020 9:46 PM EDT 50 mg sodium chloride 0.9 % (flush) flush 5 mL 5 mL, Intravenous, EVERY 12 HOURS, First dose on Martha 11/16/20 at 2045, Until Discontinued, Cath (Day of Procedure), Routine Given 11/17/2020 9:32 AM EDT 5 mLs Given 11/16/2020 9:48 PM EDT 5 mLs sodium chloride 0.9 % (flush) flush 5-20 mL 5-20 mL, Intravenous, EVERY 1 MIN PRN, Starting on Martha 11/16/20 at 1948, Until Fri11/17/20 at 1356, flush, Flush pertains to all indwelling lines. Flush per protocol found in the job aid using the link provided on this medication record., Cath (Day of Procedure), Routine documented in this encounter Active and Recently Administered Medications Times are shown in EDT. Scheduled Medication Order 11/15/2020 11/16/2020 11/17/2020 aspirin chewable tablet 324 mg (COMPLETED) 324 mg, Oral, ONCE, 1 dose, On Martha 11/16/20 at 1830, Cath (Intra-Procedure), Routine 1802 (Given - Provider: Harshil Fraser RN) aspirin chewable tablet 81 mg 81 mg, Oral, DAILY, First dose on Fri11/17/20 at 0900, Until Discontinued, Routine 09 (Given - Provid er: Ilene Shaver LPN) atorvastatin (Lipitor) tablet 40 mg 40 mg, Oral, EVERY EVENING, First dose on Fri11/16/20 at 2044, Until Discontinued, Routine 2146 (Given - Provider: Meli Veloz RN) clopidogreL (Plavix) tablet 75 mg 75 mg, Oral, DAILY, First dose on Fri11/16/20 at 2044, Until Discontinued, Routine 214 (Given - Provider: Meli Veloz RN) 09 (Given - Provider: Ilene Shaver LPN) furosemide (Lasix) tablet 20 mg 20 mg, Oral, DAILY, First dose on Fri11/17/20 at 0900, Until Discontinued, Routine 930 (Given - Provid er: Ilene Shaver LPN) lisinopriL (Prinivil;Zestril) tablet 2.5 mg 2.5 mg, Oral, DAILY, First dose on Fri11/16/20 at 2044, Until Discontinued, Routine 214 (Given - Provider: Meli Veloz RN) 0930 (Given - Provider: Ilene Shaver LPN) metoprolol tartrate (Lopressor) tablet 50 mg 50 mg, Oral, EVERY 12 HOURS SCHEDULED (2 times per day), First dose on Fri11/16/20 at 2100, Until Discontinued, Routine 214 (Given - Provider: Meli Veloz RN) 0900 (Hold - Provider: Jani Colindres RN - Reason: See comment - Comment: Bp soft.) sodium chloride 0.9 % (flush) flush 5 mL 5 mL, Intravenous, EVERY 12 HOURS, First dose on Fri11/16/20 at 2044, Until Discontinued, Cath (Day of Procedure), Routine 2147 (Given - Provider: Meli Veloz RN) 0932 (Given - Provider: Ilene Shaver LPN) PRN Medication Order 11/15/2020 11/16/2020 11/17/2020 acetaminophen (Tylenol) tablet 650 mg 650 mg, Oral, EVERY 6 HOURS PRN, Starting on Fri11/16/20 at 1602, Until Fri11/17/20 at 1356, Pain, Mild Pain, Maximum dose of acetaminophen is 4000 mg from all sources in 24 hours. When ordered for pain, acetaminophen should be given even when other ordered pain medications are indicated. , Routine fentaNYL (pf) (50 mcg/mL) multi-dose injection (CANCELED) ONCE PRN, Starting on Martha 11/16/20 at 1359, Until Martha 11/16/20 at 1907, Cath (Intra-Procedure), Routine 1359 (Given - Provider: Vanessa Murcia RN) fentaNYL (pf) (50 mcg/mL) multi-dose injection (CANCELED) ONCE PRN, Starting on Martha 11/16/20 at 1502, Until Martha 11/16/20 at 1907, Intra-Operative (Intra-Procedure), Routine 1502 (Given - Provider: Marika Jackson RN)1524 (Given - Provider: Vanessa Murcia RN) heparin (porcine) (1,000 units/mL) injection (CANCELED) ONCE PRN, Starting on Martha 11/16/20 at 1505, Until Martha 11/16/20 at 1907, Cath (Intra-Procedure), Routine 1505 (Given - Provider: Vanessa Murcia RN) lidocaine (Xylocaine) 1% (10 mg/mL) injection 3 mg 3 mg (0.3 mL), Subcutaneous, ONCE PRN, 1 dose, Starting on Martha 11/16/20 at 1948, Until Fri11/17/20 at 1356, with discomfort with PIV insertion, Cath (Day of Procedure), Routine midazolam (pf) (Versed) (1 mg/mL) multi-dose injection (CANCELED) ONCE PRN, Starting on Martha 11/16/20 at 1400, Until Martha 11/16/20 at 1907, Cath (Intra-Procedure), Routine 1400 (Given - Provider: Vanessa Murcia RN)1502 (Given - Provider: Yaneth Jackson RN)1524 (Given - Provider: Vanessa Murcia RN) nitroGLYcerin 100 mcg/mL intracoronary dilution (CANCELED) ONCE PRN, Starting on Martha 11/16/20 at 1510, Until Martha 11/16/20 at 1907, Cath (Intra-Procedure), Routine 1510 (Given - Provider: Ericka Hogue MD) sodium chloride 0.9 % (flush) flush 5-20 mL 5-20 mL, Intravenous, EVERY 1 MIN PRN, Starting on Martha 11/16/20 at 1948, Until Fri11/17/20 at 1356, flush, Flush pertains to all indwelling lines. Flush per protocol found in the job aid using the link provided on this medication record., Cath (Day of Procedure), Routine sodium chloride 0.9% infusion (COMPLETED) CONTINUOUS PRN, Starting on Martha 11/16/20 at 1543, Until Martha 11/16/20 at 1543, Cath (Intra-Procedure) 1543 (New Bag - Provider: Yaneth Jackson RN) No Frequency Medication Order 11/15/2020 11/16/2020 11/17/2020 aspirin 81 mg chewable tablet 1 dose, Starting on Martha 11/16/20 at 1805, Until Fri11/17/20 at 0614, Harshil Fraser: cabinet override 1815 (Due) documented in this encounter Care Teams Apns Relationship Specialty Start Date End Date Ricki Traylor MD [facility] [place] [address] PCP - General General Internal Medicine 05/30/1710/09 documented as of this encounter
--- OUTSIDE RECORDS SUMMARY | 2024-06-16 15:32 | XMS_ITS | Encounter Summary ---
Author Organization [facility] [place] [address] Care Team Providers Care Gamma Ray Operator Name Role Phone Ricki Traylor MD Primary Care Provider [phone] Reason for Visit * Reason Onset Date Comments Shortness of Breath 05/09/2020 with exercis e Encounter Details Date Type Department Care Team (Late st Contact Info) Description 05/09/2020 Telephone Cardiology at [address] [phone] Brittany Youngblood, RN Shortness of Breath (with exercise) Social History Tobacco Use Types Packs/Day Years Used Date Smoking Tobacco: Former Cigarettes 1 1 865 - 1979 Smokeless Tobacco: Never Alcohol Use Standard Drinks/Week Comments No 0 (1 standard drink = 0.6 oz pur e alcohol) Sex and Gender Information Value Date Recorded Sex Assigned at Not on file Gender Identity Not on file Sexual Orientation Not on file documented as of this encounter Miscellaneous Notes * Telephone Encounter - Brittany Youngblood RN - 05/09/2020 3:10 PM EDT Called Mr Adan, and conveyed Dr Mills' message regarding an appointment this week, with lab work, an ECG, and coordinated Download of his device. ECG, CBC, BMP, Pro BNP ordered per MD orders. He is agreeable with this plan. * Telephone Encounter - Brittany Youngblood RN - 05/09/2020 12:58 PM EDT Mr Álvarez called in and states for the past while, purvi the last 3-4 days he is having shortness of breath, and feels drained when he walks too far, that he sits down to catch his breath, and then he can walk further. He had an episode Friday, and felt weak, and he describes it as kind of crummy. Mr Álvarez states he can sit without any difficulty breathing. Reviewed his medications: Metoprolol tartrate 50mg, PO BID Lisinopril 2.5mg, PO, daily Lasix 20mg, PO, daily Plavix 75mg, daily, and Lipitor 40mg, daily documented in this encounter Plan of Treatment Upcoming Encounters Date Type Department Care Team (Late st Contact Info) Description 08/31/2024 10:00 AM EST Hospital Encounter Non-[place] [address] Arrived documented as of this encounter Results * EKG 12 Lead (05/12/2020 10:05 AM EDT) Ventricular rate 63 BPM MUSE SYSTEM Atrial Rate 63 BPM MUSE SYSTEM P-R Interval 186 ms MUSE SYSTEM QRS Duration 94 ms MUSE SYSTEM Q-T Interval 428 ms MUSE SYSTEM QTC Calculated (Bezet) 437 ms MUSE SYSTEM Calculated P Thompsons 7 degrees MUSE SYSTEM Calculated R Thompsons -5 degrees MUSE SYSTEM Calculated T Thompsons 81 degrees MUSE SYSTEM INTERPRETATION Electronic atrial pacemaker Low voltage QRS Septal infarct (cited on or before 18-MAY-2017) Abnormal ECG When compared with ECG of 26-JUN-2017 15:31, Electronic atrial pacemaker has replaced Sinus rhythm Confirmed by MD Ever, Gray ([id number]) on 05/12/2020 12:47:26 PM MUSE SYSTEM 05/12/2020 10:0 5 AM EDT 05/12/2020 12:47 PM EDT Juan Jose Mills MD ECG ORDERABLES MUSE SYSTEM * pro-Brain Natriuretic Peptide (05/12/2020 8:42 AM EDT) NT-proBNP 310 <=450 pg/mL [facility] Blood specimen (specimen) 05/12/2020 8:42 AM EDT 05/12/2020 8:48 AM EDT Narrative Resulting Agency Comment Spec In Lab Juan Jose Mills MD CHEMISTRY ORDERABLES [facility] [place] [address] * (ABNORMAL) Basic Metabolic Panel (non-fasting) (05/12/2020 8:42 AM EDT) Glucose 123 65 - 199 mg/dL [facility] Comment:Diabetes: >=200 mg/d L plus symptoms Blood Urea Nitrogen 27(H) 10 - 20 mg/dL [facility] Creatinine 1.26 0.80 - 1.50 mg/dL [facility] Sodium 142 135 - 145 mmol/L [facility] Potassium 5.0 3.5 - 5.0 mmol/L [facility] Comment: Please note: ??Patients with WBC >100,000 may have falsely elevated Potassium levels. ??For accurate Potassium quantification in these patients send serum separator tube (gold top) for subsequent determinations. ??Contact the Clinical Chemistry Laboratory if there are any questions. Chloride 102 98 - 107 mmol/L [facility] Carbon Dioxide 32(H) 22 - 31 mmol/L [facility] Anion Gap 8 5 - 15 mmol/L [facility] Calcium 9.3 8.5 - 10.5 mg/dL [facility] Est Glomerular Filtration Rate 54(L) >=60 mL/min/1. 73 m?? [facility] Comment: The eGFR was calculated using the CKD-EPI equation. As with all creatinine based estimates of kidney function, eGFR values calculated with the CKD-EPI equation are not accurate in patients with acute kidney failure, extremes of body mass or the acutely ill. [email or web address] eGFR 62 >=60 mL/min/1. 73 m?? [facility] Comment: The eGFR was calculated using the CKD-EPI equation. As with all creatinine based estimates of kidney function, eGFR values calculated with the CKD-EPI equation are not accurate in patients with acute kidney failure, extremes of body mass or the acutely ill. 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
--- OUTSIDE RECORDS SUMMARY | 2024-06-16 15:32 | XMS_ITS | Encounter Summary ---
Author Organization [facility] Address [facility] [place] [address] Care Team Providers Care Bore Mill Operator Name Role Phone Ricki Traylor MD Primary Care Provider [phone] Reason for Referral * Consultation (Routine) - Closed Specialty Diagnoses / Procedures Referred By Contact Referred To Contact Cardiac Rehabilitation Diagnoses Coronary arteriosclerosis Zamzam Gamboa APRN [facility] [place] [address] Cardiac Rehab, [address] [facility], [facility] [address] Referral ID Status Reason Start Date Expiration Date V isits Requested Visits Authorized [id number] Closed Consult, Test & Treat 11/20/2020 05/19/2021 36 36 Encounter Details Date Type Department Care Team (Late st Contact Info) Description 11/20/2020 Orders Only Cardiology at [address] [phone] Zamzam Gamboa APRN [facility] [place] [address] Coronary arteriosclerosis Social History Tobacco Use Types Packs/Day Years [...] AM EST Hospital Encounter Non-Invasive [place] [address] Arrived Scheduled Referrals Name Type Priority Associated Diagnoses Orde r Schedule Referral to Cardiac Rehab Outpatient Referral Routine Coronary arteriosclerosis Ordered: 11/20/2020 documented as of this encounter Visit Diagnoses Diagnosis Coronary arteriosclerosis Coronary atherosclerosis of unspecified type of vessel, [place] or graft documented in this encounter Care Teams Bore Mill Operator Relationship Specialty Start Date End Date Ricki Traylor MD [facility] [place] [address] PCP - General General Internal Medicine 05/30/1710/09 documented as of this encounter
--- OUTSIDE RECORDS SUMMARY | 2024-06-16 15:32 | XMS_ITS | Encounter Summary ---
Author Organization [facility] [place] [address] Care Team Providers Care Retail Wireless Sales Consultant Name Role Phone Ricki Traylor MD Primary Care Provider [phone] Reason for Visit * Reason Comments Medication Refill Encounter Details Date Type Department Care Team (Late st Contact Info) Description 10/29/2020 Refill Cardiology at [address] [phone] Juan Jose Mills MD [facility] [place] [address] Medication Refill Social History Tobacco Use Types Packs/Day Years Used Date Smoking Tobacco: Former Cigarettes 1 25 1 955 - 1103 Smokeless Tobacco: Never Alcohol Use Standard Drinks/Week Comments No 0 (1 standard drink = 0.6 oz pur e alcohol) Sex and Gender Information Value Date Recorded Sex Assigned at Not on file Gender Identity Not on file Sexual Orientation Not on file documented as of this encounter Miscellaneous Notes * Telephone Encounter - Tasia Kramer RN - 10/31/2020 11:14 AM EDT LEONID: 05/12/20 with Zamzam Gamboa Per assessment and Plan: ?? 2. Coronary arteriosclerosis Stopped aspirin and continue clopidogrel monotherapy---see reference below Continue Lisinopril 2.5 mg once daily and BB ?? RTC: to be determined by results of ischemic evaluation Next f/u visit scheduled for: 11/21/20 Tasia Kramer RN Cardiology [facility] at [facility] [phone] documented in this encounter Plan of Treatment Upcoming Encounters Date Type Department Care Team (Late st Contact Info) Description 08/31/2024 10:00 AM EST Hospital Encounter Non-[place] [address] Arrived documented as of this encounter Visit Diagnoses Diagnosis Coronary arteriosclerosis Coronary atherosclerosis of unspecified type of vessel, [place] or graft documented in this encounter Care Teams Retail Wireless Sales Consultant Relationship Specialty Start Date End Date Ricki Traylor MD [facility] [place] [address] PCP - General General Internal Medicine 05/30/1710/09 documented as of this encounter
--- OUTSIDE RECORDS SUMMARY | 2024-06-16 15:32 | XMS_ITS | Encounter Summary ---
Author Organization [facility] Address [facility] [place] [address] Care Team Providers Care Shampoo Assistant Name Role Phone Ricki Traylor MD Primary Care Provider [phone] Encounter Details Date Type Department Care Team (Late st Contact Info) Description 05/12/2020 9:20 AM EDT Office Visit Cardiology at [address] [phone] Zamzam Gamboa APRN [facility] [place] [address] Conduction system disease---- has [employer] pacer.; Coronary arteriosclerosis; Aortic valve disease--- TAVR December 2016; SOB (shortness of breath) Social History Tobacco [...] Sign Reading Time Taken Comments Blood Pressure 97/54 05/12/2020 9:06 AM EDT Pulse 58 05/12/2020 9:06 AM EDT Temperature - - Respiratory Rate 20 05/12/2020 9:06 AM EDT Oxygen Saturation 97% 05/12/2020 9:06 AM EDT Inhaled Oxygen Concentration - - Weight 88.5 kg (195 lb 3.2 oz) 05/12/2020 9:06 A M EDT Height 172.7 cm (5' 8) 05/12/2020 9:06 AM EDT Body Mass Index 29.68 05/12/2020 9:06 AM EDT documented in this encounter Progress Notes * Ysabel Gamboaarenick Payton, SUPERVISOR [employer] - 05/12/2020 9:20 AM EDT Images from the original note were not included. CARDIOVASCULAR MEDICINE [place] [address] Subjective: Identification Vikash Álvarez is a 79 y.o. patient of Ricki Traylor MD with the following cardiovascular issues: 1. Coronary disease ?? 4v CABG in 1994 ?? PCI of SVG in 2013 ?? redo PCI due to ISR in May 2017 2. Aortic valve disease--- TAVR in December 2016 done at [facility] 3. 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 COPD on nocturnal O2 (FEV1 < 40%), ?? prostate cancer treated with prostectomy Social and family history reviewed. Lives with his in [facility]. 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 Enjoys [employer]. No flowsheet data found. Present Illness Last seen September 15, 2019. Last 3 months he has been out of air and very weak Weak and SOB for 1 year, worse in last 3 months, Friday had a bad incident Before going to lunch his breathing was heavy. Walked to the bench ok. Had lunch with the kids, atehalf hamburger and needed to leave lunch (walked 100 yards) with draining weakness and SOB. Had jawand teeth pain These episodes are up and down Weight is down. Does not weigh himself Lies flat without PND or orthopnea Wears O2 at night Episodes of palpitations, fast heart beat when in bed No LE edema [place] this way before and it had to do with his stents Occasionally gets dizzy, moving his head fast, change of position. Has happened recently when turning over in bed 2 days ago ghost images in front of him left eye Medications Current Outpatient Medications: ??? triamcinolone (KENALOG) 0.1 % Ointment, Use 2 times daily to lower extremities for 1 week, takea week off, repeat cycle if needed., Disp: 454 g, Rfl: 0 ??? atorvastatin (Lipitor) 40 mg Tablet, Take 1 tablet by mouth every evening., Disp: 90 tablet, Rfl: 3 ??? clopidogreL (Plavix) 75 mg Tablet, Take 1 tablet by mouth daily., Disp: 90 tablet, Rfl: 3 ??? metoprolol tartrate (Lopressor) 50 mg Tablet, Take 1 tablet by mouth 2 times daily., Disp: 180 tablet, Rfl: 3 ??? furosemide (Lasix) 20 mg Tablet, Take 1 tablet by mouth daily., Disp: 90 tablet, Rfl: 3 ??? lisinopriL (Prinivil;Zestril) 2.5 mg Tablet, Take 1 tablet by mouth daily., Disp: 90 tablet, Rfl: 3 ??? nitroGLYcerin (Nitrostat) 0.4 mg Tablet, Sublingual, Place 1 tablet under the tongue every 5 minutes as needed for Chest pain., Disp: 25 tablet, Rfl: 12 Objective: Physical Exam BP 97/54 Pulse 58 Resp 20 Ht 172.7 cm (5' 8) Wt 88.5 kg (195 lb 3.2 oz) SpO2 97% BMI 29.68 kg/m?? , There is no height or weight on file to calculate BMI. General: Pleasant. No distress. Wearing a face mask Skin: Warm and dry. HEENT: No jaundice. Neck: JVP not elevated. No AJR. No carotid bruits. Chest: Diminished breath sounds Heart: No RV heave. Regularly regular rhythm. Normal S1 and S2. No murmurs or gallops. Abdomen:Nondistended. Soft. Nontender. Ext: No edema. TEAM AUTOMOBILE ASSEMBLER: Normal mentation. Psych: Appropriate affect. Labs Lab Results Component Value Date NA 142 05/12/2020 K 5.0 05/12/2020 CL 102 05/12/2020 CO2 32 (H) 05/12/2020 BUN 27 (H) 05/12/2020 CREATININE 1.26 05/12/2020 CHLPL 139 06/26/2017 HDL 46 06/26/2017 CHOLHDL 3.0 06/26/2017 ProBNP Date Value Ref Range Status 05/12/2020 310 <=450 pg/mL Final 05/18/2017 384 <=450 pg/mL Final Assessment and Plan 1. Conduction system disease---- has [employer] pacer. Doing well. Device interrogation today shows Atrial Pacin%, Ventricular Pacing: <1% HR Histogram: Normal HR distribution 2. Coronary arteriosclerosis Stopped aspirin and continue clopidogrel monotherapy---see reference below Continue Lisinopril 2.5 mg once daily and BB 3. Aortic valve disease--- TAVR December 2016 Functioning well.?? 4. SOB/? Angina Per patient the symptoms are similar to prior episodes when he needed a stent EKG unchanged from prior Provided a rx for NTG Will need ischemic evaluation. Will discuss nuc med stress vs LHC with Dr. Mills and call the patient Instructed to go the ED is symptoms worsen or if NTG is ineffective RTC: to be determined by results of ischemic evaluation Reference Juan Miguel EL,SMART-CHOICE Investigators??. Effect of P2Y12 Inhibitor Monotherapy vs Dual Antiplatelet Therapy on Cardiovascular Events in Patients Undergoing Percutaneous Coronary Intervention: The SMART-CHOICE Randomized Clinical Trial. JAY. 2019;321(81):2428. cc: ?? Ricki Traylor MD [facility] INTERNAL MEDICINE / [facility]* ?? Juan Jose Mills MD [facility] Zamzam Gamboa APRN 05/12/2020 documented in this encounter Plan of Treatment Upcoming Encounters Date Type Department Care Team (Late st Contact Info) Description 08/31/2024 10:00 AM EST Hospital Encounter Non-[place] [address] Arrived documented as of this encounter Visit Diagnoses Diagnosis Conduction system disease---- has [employer] pacer. Cardiac pacemaker in situ Coronary arteriosclerosis Coronary atherosclerosis of unspecified type of vessel, [place] or graft Aortic valve disease--- TAVR December 2016 Aortic valve disorders SOB (shortness of breath) Shortness of breath documented in this encounter Care Teams Shampoo Assistant Relationship Specialty Start Date End Date Ricki Traylor MD [facility] GENERAL [place] [address] PCP - General General Internal Medicine 05/30/1710/09 documented as of this encounter
--- OUTSIDE RECORDS SUMMARY | 2024-06-16 15:32 | XMS_ITS | Encounter Summary ---
Author [place] [address] Care Team Providers Care Frit Burner Name Role Phone Ricki Traylor MD Primary Care Provider [phone] Encounter Details Date Type Department Care Team (Latest Contact Info) Description 05/12/2020 8:20 AM EDT Laboratory Appointment Lab [address] [place] [phone] Aortic valve disease--- TAVR December 2016; Coronary artery disease without angina pectoris, unspecified vessel or lesion type, unspecified whether [place] or transplanted heart; Conduction system disease---- has [employer] pacer.; SOB (shortness of breath) Social History Tobacco [...] AM EST Hospital Encounter Non-[place] [phone] Arrived documented as of this encounter Procedures Procedure Name Priority Date/Time Associated Diagnosis Comments HEMOGRAM Routine 05/12/2020 8:42 AM EDT Aortic valve disease Coronary artery disease without angina pectoris, unspecified vessel or lesion type, unspecified whether [place] or transplanted heart Pacemaker DIFFERENTIAL, AUTOMATED Routine 05/12/2020 8:42 AM EDT Aortic valve disease Coronary artery disease without angina pectoris, unspecified vessel or lesion type, unspecified whether [place] or transplanted heart Pacemaker HC CBC,PLT & AUTO DIFF Routine 05/12/2020 8:42 AM EDT Aortic valve disease--- TAVR December 2016 Coronary artery disease without angina pectoris, unspecified vessel or lesion type, unspecified whether [place] or transplanted heart Conduction system disease---- has [employer] pacer. HC VENIPUNCTURE STAT 05/12/2020 8:42 AM EDT Aortic valve disease--- TAVR December 2016 Coronary artery disease without angina pectoris, unspecified vessel or lesion type, unspecified whether [place] or transplanted heart Conduction system disease---- has [employer] pacer. SOB (shortness of breath) BASIC METABOLIC PANEL Routine 05/12/2020 8:42 AM EDT Aortic valve disease--- TAVR December 2016 Coronary artery disease without angina pectoris, unspecified vessel or lesion type, unspecified whether [place] or transplanted heart Conduction system disease---- has [employer] pacer. documented in this encounter Results * Differential, Automated (05/12/2020 8:42 AM EDT) Neutrophil % 70.1 % [facility] Neutrophil Absolute 4.13 1.70 - 6.10 x10(3)/[facility] Lymph % 17.0 % [facility] Lymphocytes Abs 1.0 0.9 - 3.2 x10(3)/[facility] LABOR[facility]ORY Monocyte % 9.8 % [facility] Monocyte Abs 0.6 0.3 - 0.9 x10(3)/[facility] LABOR[facility]ORY Eos % 2.4 % [facility] Eosinophils Abs 0.1 0.0 - 0.4 x10(3)/[facility] Basophil % 0.5 % [facility] Baso Absolute 0.0 0.0 - 0.1 x10(3)/[facility] LABOR[facility] Immature Gran % 0.20 % [facility] Comment: Immature granulocytes(IG's)percentage and absolute count will include metamyelocytes, myelocytes, and promyelocytes. Blood smears from CBCs yielding IG's will be scanned manually for concordance. If this scan disagrees with the automated IG or if promyelocytes are noted, a manual differential will be performed. Immature Gran Absolute 0.01 0.00 - 0.04 x10(3)/mcL [facility] Blood specimen (specimen) 05/12/2020 8:42 AM EDT 05/12/2020 8:48 AM EDT Narrative Resulting Agency Comment Spec In Lab Juan Jose Mills MD HEMATOLOGY ORDERABLE S [facility] [place] [address] * (ABNORMAL) Hemogram (05/12/2020 8:42 AM EDT) White Blood Cell 5.9 4.0 - 9.5 x10(3)/mc L [facility] Red Blood Cell 3.82(L) 4.58 - 5.54 x10(6)/mc L [facility] Hemoglobin 12.2(L) 13.7 - 16.5 gm/dL [facility] Hematocrit 37.4(L) 40.5 - 48.5 % [facility] Mean Cell Volume 97.9(H) 82.9 - 93.1 fL [facility] Mean Cell Hemoglobin 31.9 27.5 - 32.1 pg [facility] Mean Cell Hemoglobin Concentration 32.6 32.0 - 35.7 gm/dL [facility] Platelet 149 145 - 357 x10(3)/mc L [facility] RDW Standard Deviation 47.1(H) 36.0 - 45.0 fL [facility] RDW coefficient of variation 13.3 11.4 - 13.8 % [facility] Mean Platelet Volume 8.7 7.6 - 12.9 fL [facility] NRBC% auto 0.0 % [facility] NRBC Absolute 0.000 0.000 - 0.000 x10(3)/mc L [facility] Blood specimen (specimen) 05/12/2020 8:42 AM EDT 05/12/2020 8:48 AM EDT Narrative Resulting Agency Comment Spec In Lab Juan Jose Mills MD HEMATOLOGY ORDERABLE S [facility] [place] [address] * (ABNORMAL) Basic Metabolic Panel (non-fasting) (05/12/2020 8:42 AM EDT) Glucose 123 65 - 199 mg/dL [facility] Comment:Diabetes: >=200 mg/d L plus symptoms Blood Urea Nitrogen 27(H) 10 - 20 mg/dL [facility] Creatinine 1.26 0.80 - 1.50 mg/dL [facility] Sodium 142 135 - 145 mmol/L [facility] Potassium 5.0 3.5 - 5.0 mmol/L [facility] Comment: Please note: ??Patients with WBC >100,000 may have falsely elevated Potassium levels. ??For accurate Potassium quantification in these patients send serum separator tube (gold top) for subsequent determinations. ??Contact the Clinical Chemistry Laboratory if there are any questions. Chloride 102 98 - 107 mmol/L [facility] Carbon Dioxide 32(H) 22 - 31 mmol/L [facility] Anion Gap 8 5 - 15 mmol/L [facility] Calcium 9.3 8.5 - 10.5 mg/dL [facility] Est Glomerular Filtration Rate 54(L) >=60 mL/min/1. 73 m?? [facility] Comment: The eGFR was calculated using the CKD-EPI equation. As with all creatinine based estimates of kidney function, eGFR values calculated with the CKD-EPI equation are not accurate in patients with acute kidney failure, extremes of body mass or the acutely ill. [email or web address] eGFR 62 >=60 mL/min/1. 73 m?? [facility] Comment: The eGFR was calculated using the CKD-EPI equation. As with all creatinine based estimates of kidney function, eGFR values calculated with the CKD-EPI equation are not accurate in patients with acute kidney failure, extremes of body mass or the acutely ill. [email or web address] Blood specimen (specimen) 05/12/2020 8:42 AM EDT 05/12/2020 8:48 AM EDT Narrative Resulting Agency Comment Spec In Lab Juan Jose Mills MD CHEMISTRY ORDERABLES Performing Organization Address [facility] Co de Phone Number [facility] [place] [address] * pro-Brain Natriuretic Peptide (05/12/2020 8:42 AM EDT) NT-proBNP 310 <=450 pg/mL [facility] Blood specimen (specimen) 05/12/2020 8:42 AM EDT 05/12/2020 8:48 AM EDT Narrative Resulting Agency Comment Spec In Lab Juan Jose Mills MD CHEMISTRY ORDERABLES Performing Organization Address [facility] Co de Phone Number [facility] [place] [address] documented in this encounter Visit Diagnoses Diagnosis Aortic valve disease--- TAVR December 2016 Aortic valve disorders Coronary artery disease without angina pectoris, unspecified vessel or lesion type, unspecified whether [place] or transplanted heart Conduction system disease---- has [employer] pacer. Cardiac pacemaker in situ SOB (shortness of breath) Shortness of breath documented in this encounter Care Teams Frit Burner Relationship Specialty Start Date End Date Ricki Traylor MD [facility] [place] [address] PCP - General General Internal Medicine 05/30/1710/09 documented as of this encounter
--- OUTSIDE RECORDS SUMMARY | 2024-06-16 15:32 | XMS_ITS | Encounter Summary ---
Author Organization [facility] Address [facility] [place] [address] Care Team Providers Care [employer] French Teacher Name Role Phone Ricki Traylor MD Primary Care Provider [phone] Encounter Details Date Type Department Care Team (Latest Contact Info) Description 11/02/2020 10:30 AM EDT Hospital Encounter [place] [phone] Zamzam Gamboa [employer] [place] [facility] [place] [address] Substernal chest pain Discharge Disposition: Home Social History Tobacco Use Types Packs/Day Years Used Date Smoking Tobacco: Former Cigarettes 1 04 09 955 1979 Smokeless Tobacco: Never Alcohol Use Standard [...] unspecified vessel or lesion type, unspecified whether [place] or transplanted heart,Aortic valve disease Take 1 [...] AM EST Hospital Encounter [place] [address] Arrived documented as of this encounter Procedures Procedure Name Priority Date/Time Associated Diagnosis Comments NUCLEAR PHARMACOLOGIC STRESS CARDIOLOGY Routine 11/02/2020 11:55 AM EDT Substernal chest pain documented in this encounter Results * Nuclear Pharmacologic Stress Cardiology (11/02/2020 11:55 AM EDT) Anatomical Region Laterality Modality Other Zamzam Gamboa APRN CARDIAC SERVICES ORDERABLES documented in this encounter Visit Diagnoses Diagnosis Substernal chest pain Precordial pain documented in this encounter Care Teams [employer] French Teacher Relationship Specialty Start Date End Date Ricki Traylor MD [facility] [address] PCP - General General Internal Medicine 05/30/1710/09 documented as of this encounter
--- OUTSIDE RECORDS SUMMARY | 2024-06-16 15:32 | XMS_ITS | Encounter Summary ---
[place] [address] Care Team Providers Care Dope Maintenance Worker Name Role Phone Ricki Traylor MD Primary Care Provider [phone] Reason for Referral * Diagnostic Test (Routine) - Closed Specialty Diagnoses / Procedures Referred By Contac t Referred To Contact Radiology Diagnoses Substernal chest pain Procedures NM Pharmacologic Stress and Rest Myocardial Perfusion Zamzam Gamboa ADVERTISING [facility] [place] [address] [place] [address] Referral ID Status Reason Start Date Expiration Date V isits Requested Visits Authorized [id number] Closed Specialty Service Requested 05/15/2020 11/13/2021 1 1 Reason for Visit * Diagnostic Test (Routine) - Closed Specialty Diagnoses / Procedures Referred By Contac t Referred To Contact Radiology Diagnoses Substernal chest pain Procedures NM Pharmacologic Stress and Rest Myocardial Perfusion Zamzam Gamboa ADVERTISING [facility] [place] [place] [address] [place] [address] Referral ID Status Reason Start Date Expiration Date V isits Requested Visits Authorized [id number] Closed Specialty Service Requested 05/15/2020 11/13/2021 1 1 Encounter Details Date Type Department Care Team (Latest Contact Info) Description 11/02/2020 10:26 AM EDT - 11/02/2020 10:28 AM EDT Hospital En[place] [address] Zamzam Gamboa [facility] [place] [address] Substernal chest pain Discharge Disposition: Home Social History Tobacco Use Types Packs/Day Years Used Date Smoking Tobacco: Former Cigarettes 819 - 4748 Smokeless Tobacco: Never Alcohol Use Standard Drinks/Week [...] unspecified vessel or lesion type, unspecified whether [place] or transplanted heart,Aortic valve disease Take 1 [...] AM EST Hospital Encounter Non-[place] [address] Arrived documented as of this encounter Procedures Procedure Name Priority Date/Time Associated Diagnosis Comments NM PHARMACOLOGIC STRESS AND REST MYOCARDIAL PERFUSION Routine 11/02/2020 11:51 AM EDT Substernal chest pain documented in this encounter Results * NM Pharmacologic Stress and Rest Myocardial Perfusion (11/02/2020 11:51 AM EDT) Anatomical Region Laterality Modality Nuclear Medicine [...] report, please contact the number below. Zamzam Payton Bee ADVERTISING [facility] [place] ORDERABLES documented in this encounter Visit Diagnoses Diagnosis Substernal chest pain Precordial pain documented in this encounter Administered Medications Inactive Administered Medications - up to 3 most recent administrations Medication Order MAR Action Action Date Dose Rate Site technetium (Tc-99m) sestamibi injection 0-30 mCi 0-30 mCi, Intravenous, ONCE PRN, 1 dose, Starting on Martha 11/02/20 at 1038, Until Martha 11/02/20 at 1035, Per Protocol, Radiology Contrast, Routine Given 11/02/2020 10:35 AM EDT 7.8 mCi Right Arm documented in this encounter Care Teams Dope Maintenance Worker Relationship Specialty Start Date End Date Ricki Traylor MD [facility] [place] [address] PCP - General General Internal Medicine 05/30/1710/09 documented as of this encounter
--- OUTSIDE RECORDS SUMMARY | 2024-06-16 15:32 | XMS_ITS | Encounter Summary ---
Author Organization [facility] Address [facility] [place] [address] Care Team Providers Care Principal Process Engineer Name Role Phone Ricki Traylor MD Primary Care Provider Reason for Visit * Reason Onset Date Comments Bumped Appointment 05/24/2020 Encounter Details Date Type Department Care Team (Late st Contact Info) Description 05/24/2020 Telephone [place] [address] Harshil Marte MD [facility] [place] [address] Bumped Appointment Social History Tobacco Use Types Packs/Day Years Used Date Smoking Tobacco: Former Cigarettes 1 25 1 955 - 8081 Smokeless Tobacco: Never Alcohol Use Standard Drinks/Week Comments No 0 (1 standard drink = 0.6 oz pur e alcohol) Sex and Gender Information Value Date Recorded Sex Assigned at Not on file Gender Identity Not on file Sexual Orientation Not on file documented as of this encounter Miscellaneous Notes * Telephone Encounter - Lisa Miller - 05/24/2020 9:12 AM EDT Called patient to move his laser appointment to 05/31. Patient declined as he has other commitmentsthat day. He would like to schedule to June. I let patient know I do not have anything in June that I can offer him right now and I will call him once I know what the schedule looks like. Patient was agreeable documented in this encounter Plan of Treatment Upcoming Encounters Date Type Department Care Team (Late st Contact Info) Description 08/31/2024 10:00 AM EST Hospital Encounter Non-Invasive [place] [phone] Arrived documented as of this encounter Visit Diagnoses Not on filedocumented in this encounter Care Teams Principal Process Engineer Relationship Specialty Start Date End Date Ricki Traylor MD [facility] GENER[facility] [place] [address] PCP - General General Internal Medicine 05/30/1710/09 documented as of this encounter
--- OUTSIDE RECORDS SUMMARY | 2024-06-16 15:32 | XMS_ITS | Encounter Summary ---
Author Organization [facility] [place] [address] Care Team Providers Care Potato Loader Name Role Phone Ricki Traylor MD Primary Care Provider [phone] Encounter Details Date Type Department Care Team (Late st Contact Info) Description 04/04/2020 Orders [place] [phone] Ricki Traylor MD [facility] GENER[facility] [place] [address] Urinary tract infection without hematuria, site unspecified Social History Tobacco Use Types Packs/Day Years [...] AM EST Hospital Encounter Non-[place] [phone] Arrived documented as of this encounter Visit Diagnoses Diagnosis Urinary tract infection without hematuria, site unspecified documented in this encounter Care Teams Potato Loader Relationship Specialty Start Date End Date Ricki Traylor MD [facility] [address] [facility] [place] [address] PCP - General General Internal Medicine 05/30/1710/09 documented as of this encounter
--- OUTSIDE RECORDS SUMMARY | 2024-06-16 15:32 | XMS_ITS | Encounter Summary ---
Author [place] [address] Care Team Providers Care Assembler Chassis Name Role Phone Ricki Traylor MD Primary Care Provider [phone] Reason for Referral * Diagnostic Test (Routine) - Closed Specialty Diagnoses / Procedures Referred By Contac t Referred To Contact Radiology Diagnoses Substernal chest pain Procedures NM Pharmacologic Stress and Rest Myocardial Perfusion Zamzam Gamboa APRN [facility] [place] [address] [place] [address] Referral ID Status Reason Start Date Expiration Date V isits Requested Visits Authorized [id number] Closed Specialty Service Requested 05/15/2020 11/13/2021 1 1 * Diagnostic Test (Routine) - Closed Specialty Diagnoses / Procedures Referred By Contac t Referred To Contact Radiology Diagnoses Substernal chest pain Procedures NM Pharmacologic Stress CT Component Zamzam Gamboa MANAGER MECHANICAL MAINTENANCE [facility] [place] [address] [place] [address] Referral ID Status Reason Start Date Expiration Date V isits Requested Visits Authorized [id number] Closed Specialty Service Requested 05/15/2020 11/13/2021 1 1 Encounter Details Date Type Department Care Team (Late st Contact Info) Description 05/15/2020 Orders Only Cardiology at [address] [phone] Zamzam Gamboa APRN [facility] [place] [address] Atherosclerosis of [place] coronary artery of [place] heart with unstable angina pectoris; Substernal chest pain Social History Tobacco Use Types Packs/Day Years Used Date Smoking Tobacco: Former Cigarettes 905 - 1979 Smokeless Tobacco: Never Alcohol Use [...] AM EST Hospital Encounter [place] [phone] Arrived documented as of this encounter Results * NM Pharmacologic Stress [...] report, please contact the number below. ? Electronically signed by: Justyn Castro MD, [facility] ([phone]), at 11/02/2020 1:57 PM Narrative 11/02/2020 1:57 PM EDT EXAMINATION: NM [...] this report, please contact the number below. Electronically signed by: Justyn Castro MD, [facility]([phone]), at 11/02/2020 1:57 PM Zamzam Gamboa APRN [facility] [place] ORDERABLES * Nuclear Pharmacologic Stress Cardiology (11/02/2020 11:55 AM EDT) Anatomical Region Laterality Modality Other Zamzam Gamboa APRN CARDIAC SERVICES ORDERABLES * NM Pharmacologic Stress and Rest Myocardial [...] report, please contact the number below. ? Electronically signed by: Justyn Castro MD, [facility] ([phone]), at 11/02/2020 1:57 PM Narrative 11/02/2020 1:57 PM EDT EXAMINATION: NM [...] this report, please contact the number below. Electronically signed by: Justyn Castro MD, [facility]([phone]), at 11/02/2020 1:57 PM Zamzam Gamboa APRN IMG [place] ORDERABLES documented in this encounter Visit Diagnoses Diagnosis Atherosclerosis of [place] coronary artery of [place] heart with unstable angina pectoris Substernal chest pain Precordial pain Substernal chest pain Precordial pain Substernal chest pain Precordial pain documented in this encounter Care Teams Assembler Chassis Relationship Specialty Start Date End Date Ricki Traylor MD [facility] [place] [address] PCP - General General Internal Medicine 05/30/1710/09 documented as of this encounter
--- OUTSIDE RECORDS SUMMARY | 2024-06-16 15:32 | XMS_ITS | Encounter Summary ---
Author Organization [facility] [place] [address] Care Team Providers Care Music Journalist Name Role Phone Ricki Traylor MD Primary Care Provider [phone] Reason for Visit * Diagnostic Test (Routine) - Closed Specialty Diagnoses / Procedures Referred By Contac t Referred To Contact Radiology Diagnoses Substernal chest pain Procedures NM Pharmacologic Stress and Rest Myocardial Perfusion Zamzam Gamboa CUSTOMER ACCOUNT MANAGER [facility] [place] [address] [place] [address] Referral ID Status Reason Start Date Expiration Date V isits Requested Visits Authorized [id number] Closed Specialty Service Requested 05/15/2020 11/13/2021 1 1 Encounter Details Date Type Department Care Team (Latest Contact Info) Description 11/02/2020 10:29 AM EDT Hospital Encounter [place] [phone] Zamzam Gamboa [facility] [place] [address] Discharge Disposition: Home Social History Tobacco Use [...] unspecified vessel or lesion type, unspecified whether [place] or transplanted heart,Aortic valve disease Take 1 [...] AM EST Hospital Encounter [place] [address] Arrived documented as of this encounter Procedures [...] ? Electronically signed by: Justyn Castro MD, [facility] ([phone]), at 11/02/2020 1:57 PM Narrative 11/02/2020 1:57 [...] below. Electronically signed by: Justyn Castro MD, [facility]([phone]), at 11/02/2020 1:57 PM Zamzam Gamboa APRN [facility] [place] ORDERABLES * NM Pharmacologic Stress and Rest [...] ? Electronically signed by: Justyn Castro MD, [facility] ([phone]), at 11/02/2020 1:57 PM Narrative 11/02/2020 1:57 [...] below. Electronically signed by: Justyn Castro MD, [facility]([phone]), at 11/02/2020 1:57 PM Zamzam Fito Bee CUSTOMER ACCOUNT MANAGER IMG NM ORDERABLES documented in this encounter Visit Diagnoses Not on filedocumented in this encounter Care Teams Music Journalist Relationship Specialty Start Date End Date Ricki Traylor MD [facility] [place] [address] PCP - General General Internal Medicine 05/30/1710/09 documented as of this encounter
--- OUTSIDE RECORDS SUMMARY | 2024-06-16 15:32 | XMS_ITS | Encounter Summary ---
Author Organization [facility] [place] [address] Care Team Providers Care Assistant Boiler Operator Name Role Phone Ricki Traylor MD Primary Care Provider [phone] Encounter Details Date Type Department Care Team (Late st Contact Info) Description 05/12/2020 10:30 AM EDT Office Visit Cardiology at [address] [phone] Mann Villanueva PA 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 Social History Tobacco Use Types Packs/Day Years Used Date Smoking Tobacco: Former Cigarettes 1 25 1 [phone] Smokeless Tobacco: Never Alcohol Use Standard Drinks/Week Comments No 0 (1 standard drink = 0.6 oz pur e alcohol) Sex and Gender Information Value Date Recorded Sex Assigned at Not on file Gender Identity Not on file Sexual Orientation Not on file documented as of this encounter Last Filed Vital Signs Vital Sign Reading Time Taken Comments Blood Pressure 97/54 05/12/2020 10:16 AM EDT Pulse 58 05/12/2020 10:16 AM EDT Temperature - - Respiratory Rate - - Oxygen Saturation 97% 05/12/2020 10:16 AM EDT Inhaled Oxygen Concentration - - Weight 88.5 kg (195 lb 3.2 oz) 05/12/2020 10:16 AM EDT Height 172.7 cm (5' 7.99) 05/12/2020 10:16 AM E DT Body Mass Index 29.69 05/12/2020 10:16 AM EDT documented in this encounter Progress Notes * Mann Villanueva PA - 05/12/2020 10:30 AM EDT Cardiac Device Interrogation Vikash Álvarez [id number] 05/12/2020 History: 77 y.o. 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 Device Interrogation: Data Generator: [employer] [id number], Implanted 01/08/2017 -Left-sided implant RA Lead: [employer] [id number], SN: [id number] RV Lead: [employer] ---, SN: [id number] Alerts None Diagnostics Pacing Mode: DDDR @ 60 bpm Presenting EGMs: AP VS Underlying Rhythm: Atrial paced with intrinsic conduction to the ventricle Atrial Episodes: ATR at 64 bpm 12/21/19 ATR at 75 bpm 12/14/19 Ventricular Episodes: NonSustV at 202 bpm 03/20/20 NonSustV at 162 bpm 10/28/19 Atrial Pacin% Ventricular Pacing: <1% HR Histogram: Normal HR distribution Battery and Leads Voltage: not given Status: 5.5 years Magnet Rate: 100 bpm Charge Time: N/A Impedances (ohms) Sensing (mV) Thresholds HV RA RV LV RA RV LV RA RV LV N/A [id number] N/A 2.1 >25 N/A 0.7V @ 0.4 ms 1.0V @ 0.4ms N/A Comments: - Pocket incision is well healed without signs or symptoms of infection - Device is functioning appropriately - Programming changes ?? None - Follow up: In-clinic device check as scheduled Mann Villanueva PA-C 05/12/2020 Pager: [phone] documented in this encounter Plan of Treatment Upcoming Encounters Date Type Department Care Team (Late st Contact Info) Description 08/31/2024 10:00 AM EST Hospital Encounter Non-Invasive Cardiology Lab [facility] [place] [address] Arrived documented as of this encounter Procedures Procedure Name Priority Date/Time Associated Diagnosis Comments EKG 12-LEAD Routine 05/12/2020 10:05 AM EDT Aortic valve disease--- TAVR December 2016 Coronary artery disease without angina pectoris, unspecified vessel or lesion type, unspecified whether anvik or transplanted heart 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 Cardiac pacemaker in situ documented in this encounter Care Teams Assistant Boiler Operator Relationship Specialty Start Date End Date Ricki Traylor MD [facility] [place] [address] PCP - General General Internal Medicine 05/30/1710/09 documented as of this encounter
--- OUTSIDE RECORDS SUMMARY | 2024-06-16 15:32 | XMS_ITS | Encounter Summary ---
Author Organization [facility] [place] [address] Care Team Providers Care Customer Accounts Advisor Name Role Phone Ricki Traylor MD Primary Care Provider [phone] Reason for Visit * Auth/Cert Specialty Diagnoses / Procedures Referred By Contac t Referred To Contact Diagnoses CAD (coronary artery disease) of bypass graft Post-Op monitoring Procedures PRG CATH PLMT LEFT HEART CATH & ARTS W/INJ & ANGIO IMG S&I CARDIAC CATHETERIZATION CORONARY ANGIOGRAPHY; W LHC,POSSIBLE PCI Referral ID Status Reason Start Date Expiration Date Visits Re quested Visits Authorized [id number] 1 1 Encounter Details Date Type Department Care Team (Late st Contact Info) Description 11/16/2020 11:00 AM EDT - 11/16/2020 12:00 PM EDT [place] [address] Fabien Devine MD [facility] [place] [address] CARDIAC CATHETERIZATION Social History Tobacco Use Types Packs/Day Years [...] Sign Reading Time Taken Comments Blood Pressure 118/66 11/16/2020 11:42 AM EDT Pulse 59 11/16/2020 11:42 AM EDT Temperature 36.2 ??C (97.2 ??F) 11/16/2020 11:42 AM E DT Respiratory Rate 20 11/16/2020 11:42 AM EDT Oxygen Saturation 98% 11/16/2020 11:42 AM EDT Inhaled Oxygen Concentration - - [...] Vikash Álvarez Patient Age: 80 y.o. Language: Mexican Race: White Ethnicity: Not nor Admit date: [...] Juan Jose Mills and Zamzam Gamboa at [facility] Inpatient Provider Contact Information: Fabien Malone PA-c [facility] pager [phone] Discharge Diagnoses (Hospital Problems) and Secondary Diagnoses (Chronic Problems): Active Hospital Problems Diagnosis ??? Substernal chest pain Added automatically from request for surgery [id number] ??? CAD (coronary artery disease) of bypass graft Resolved Hospital Problems No resolved problems to display. Active Non-Hospital Problems Diagnosis ??? 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 ?? 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. Received [employer] Accolade MRI pacemaker. ?? Aug 2018: RhythmIQ turned off and PAV and FELICITY extended to reduce ventricular pacing in context of dyspnea. ??? Vitamin D deficiency ??? Hyperlipidemia ??? Aortic valve disease--- TAVR December: Evolut 29 at [facility] 05/19/17 echo: no prosthetic aortic valve regurg ??? Coronary arteriosclerosis 1995: 4v CABG 2014: PCI of SVG 05/19/17: [facility] with PCI to mid SVG--RPDA ??? Chronic [...] artery disease with CABG in 1994 at [facility] with ZZPX-LCY-Lgqs, SVG-rPDA, SVG-OM1 and subsequent PCI to svg-rPDA [...] valve ?? Right Heart Hemodynamics RA:? RV:?38/-/6 PA:?34/11 PCW:? Coronary Angiography: Anatomically normal right dominant circulation ?? LMCA:?Without angiographic apparent disease LAD:?Minimal luminal irregularities noted, Mid - Vessel occlusion LCx:?High grade proximal lesion with competitive flow in the largeOM (See SVG below) RCA:?Not injected ?? L Subclavian is anatomically normal without apparent disease ?? DUVAL ?Dgda-wy-cwtx anastomosis to the diag is widely patent [...] appointments: During 8am-5pm Friday through Friday call [phone] and ask to speak to the cardiology clinic triage nurse. All other times call [phone] and ask to speak to the ore grader evaluation advisor. Return to work: One week Driving: No driving for 24 hours after catherization Diet: low fat / low cholesterol Follow up Appointments: patient financial specialist Dr Juan Jose Mills within the next [...] or concerns. Tom Malone PA-C Interventional Cardiology [facility] Pager [phone] General Instructions None Future Appointments and Orders Future Appointments and Orders Future Appointments Provider Department Dept Phone 12/07/2020 10:40 AM Zamzam Gamboa APRN Cardiology at [facility] Arrive at: [place] [facility] [phone] 01/10/2021 2:40 PM Ricki Traylor MD Internal Medicine at [facility] Arrive at: [place] [facility] [phone] 03/06/2021 10:00 AM Harshil Marte MD; DILATION AND TESTBOY; TECHBOY Ophthalmology at [facility] Arrive at: [place] [facility] [phone] Check-in: [place] [facility] . 03/06/2021 1:00 PM Harshil Marte MD Ophthalmology at [facility] Arrive at: [place] [facility] [phone] Discharge References/Attachments PCI (Percutaneous Coronary Intervention): Post-op (Mexican) Discharge Instructions following percutaneous coronary intervention (coronary [...] your PCP in 1-2 weeks, and your Manager Research And Development in 4-6 weeks. Please contact each office to make or confirm your appointments! BERNADINE Shelley Interventional Cardiology 11/21/20 10:34 AM [facility] Pager: [phone] documented in this encounter Discharge Instructions * [...] appointments: During 8am-5pm Friday through Friday call [phone] and ask to speak to the cardiology clinic triage nurse. All other times call [phone] and ask to speak to the ore grader evaluation advisor. Return to work: One week Driving: No driving for 24 hours after catherization Diet: low fat / low cholesterol Follow up Appointments: patient financial specialist Dr Juan Jose Mills within the next [...] or concerns. Tom Malone PA-C Interventional Cardiology [facility] Pager [phone] * Attachments The following attachments cannot be sent through Care Everywhere. * PCI (Percutaneous Coronary Intervention): Post-op (Mexican) documented in this encounter Medications at Time [...] and Physical PCP: Ricki Traylor MD Referring: Zamzam Beestephon HINES [facility] Date of Admission: 11/16/2020 Admission Diagnosis: Coronary Artery Disease: S/p PCI PCI to svg-OM1 graft with drug eluting stent Problem List: Patient Active Problem List Diagnosis ??? ','Substernal chest pain Overview Note: Added automatically from request for surgery [id number] ??? CAD (coronary artery disease) of bypass graft ??? 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 Overview Note: ?? 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. Received [employer] Accolade MRI pacemaker. ?? Aug 2018: RhythmIQ turned off and PAV and FELICITY extended to reduce ventricular pacing in context of dyspnea. ??? Vitamin D deficiency ??? Hyperlipidemia ??? Aortic valve disease--- TAVR December 2016 Overview Note: December 2016: Evolut 29 at [facility] 05/19/17 echo: no prosthetic aortic valve regurg ??? Coronary arteriosclerosis Overview Note: 1994: 4v CABG 2014: PCI of SVG 05/19/17: [facility] with PCI to mid SVG--RPDA ??? Chronic obstructive pulmonary disease ??? Prostate cancer--- treated with radical prostatectomy HPI: This 80 y.o. male is admitted with a chief complaint of CAD s/p PCI. His medical history is notable for coronary artery disease with CABG in 1994 at [facility] with JDCY-JHH-Jgfw, SVG-rPDA, SVG-OM1 and subsequent PCI to svg-rPDA [...] valve ?? Right Heart Hemodynamics RA: RV: 38/-/ PA: PCW: ? Coronary Angiography: Anatomically normal right dominant circulation ?? LMCA: Without angiographic apparent disease LAD: Minimal luminal irregularities noted, Mid - Vessel occlusion LCx: High grade proximal lesion with competitive flow in the large OM (See SVG below) RCA: Not injected ?? L Subclavian is anatomically normal without apparent disease ?? DUVAL Xmfe-ou-ktis anastomosis to the diag is widely patent [...] BERNADINE Shelley Interventional Cardiology 11/16/20 5:03 PM [facility] Pager: [phone] * Fabien Devine MD - 11/16/2020 12:02 PM EDT Vascular Surgery History and Physical HPI: Vikash Álvarez is a 80 y.o. male with CAD s/p 4v CABG ('95) s/p PCI of SVG- RPDA in 2013 [...] disease--- TAVR in December 2016 done at [facility] 3. Conduction disease--- [employer] pacemaker for CHB in December 2016 [...] Tobacco in Home Not Asked Social History Narrative Lives with Mikal, 53 years. Moved to [place] in April 2017 to be near their daughter (Lisa) at her request. She is very helpful to them. Lisa is with an 11 year old daughter (Isha). They have another daughter, Maddy, recently divorces and has moved [facility]. He and Mikal grew up and have lived in the [place] area their whole lives. 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 He likes to posey, fish, spend time with Isha, go to the beach, make art with [employer]. Wekeep very busy. No reid practice. They have travelled the world extensively. Enjoys Pufettoing. Social Determinants of Health Financial Resource Strain: [...] Gatherings with Friends and Family: ??? Attends [employer] Services: ??? Active Member of Clubs or [...] reflects our findings andplan Fabien Devine MD bartacker Pager [phone] documented in this encounter Miscellaneous Notes * Consult Note - Nurys Guerrero RN - 11/17/2020 9:31 AM EDT [facility] CARDIAC REHABILITATION Vikash Álvarez was seen today regarding participation in the outpatient Phase 2 Cardiac Rehabilitation at [facility] in [place], [place]. The patient agrees to a referral to this program. The referral will be sent at discharge and the patient should be contacted by the Program within 1- 2 weeks from discharge. * Brief Op Note - Fabien Devine MD - 11/16/2020 3:48 PM EDT Preliminary Cardiac Catheterization Procedure Note: Patient Name: Vikash Álvarez : [id number] MR#: [id number] Case Date: 11/16/2020 Database Report Writer: * Fabien Devine MD - Primary * Tom Malone PA - Physician Soa Engineer Preoperative diagnosis: Substernal chest pain with dyspnea Postoperative diagnosis: Substernal chest pain with dyspnea Preliminary Cardiac Catheterization Procedure Note: Procedure(s) performed: Coronary. SVG, subclavian and GORDON Angiography, Right & Left Heart Cath, PCI-Stent Baseline Frailty Assessment: Definitions from [place] Study of Health and Aging Clinical Frailty [...] Right Heart Hemodynamics RA: RV: 38/-/6 PA: PCW: Coronary Angiography: Anatomically normal right dominant circulation LMCA: Without angiographic apparent disease LAD: Minimal luminal irregularities noted, Mid - Vessel occlusion LCx: High grade proximal lesion with competitive flow in the large OM (See SVG below) RCA: Not injected L Subclavian is anatomically normal without apparent disease DUVAL Vxuq-ut-tyon anastomosis to the diag is widely patent [...] Full report to follow. FABIEN DEVINE MD bartacker Pager 2020 documented in this encounter Plan of Treatment Upcoming Encounters Date Type Department Care Team (Late st Contact Info) Description 08/31/2024 10:00 AM EST Hospital Encounter Non-Invasive Cardiology Lab [facility] [place] [address] Arrived documented as of this encounter Procedures Procedure Name Priority Date/Time Associated Diagnosis Comments EKG 12-LEAD Routine 11/16/2020 3:50 PM EDT Substernal chest pain Coronary arteriosclerosis Coronary artery disease involving coronary bypass graft of [place] heart, angina presence unspecified CARDIAC CATHETERIZATION Routine [...] (Bezet) 458 ms MUSE SYSTEM Calculated P [place] 54 degrees MUSE SYSTEM Calculated R [place] -11 degrees MUSE SYSTEM Calculated T [place] 74 degrees MUSE SYSTEM INTERPRETATION Normal sinus rhythm Low voltage QRS Cannot rule out Anterior infarct (cited on or before 18-MAY-2017) Abnormal ECG When compared with ECG of 16-NOV-2020 12:45, Sinus rhythm has replaced Electronic atrial pacemaker Questionable change in initial forces of Anteroseptal leads Confirmed by MD Haas Daniel ([id number]) on 11/16/2020 5:07:14 PM MUSE SYSTEM 11/16/2020 3:50 PM EDT 11/16/2020 5:07 PM EDT Harshil Zuniga MD ECG ORDERABLES MUSE SYSTEM * CARDIAC CATHETERIZATION (11/16/2020 3:42 PM EDT) Anatomical Region Laterality Modality Other Narrative 11/16/2020 6:59 PM EDT ?[facility] ? Cardiac Catheterization/Intervention Report ? Patient Name: Vikash Álvarez. ? Procedure Date: 11/16/2020 ? A #: [id number] ? Primary Physician: Devine, Fabien V ? Case #: [id number] ? File Name: [id number] ? Catheterization Order Number: [id number] ? [facility] ? Final Report [place], [place] ? Patient Name: ? Vikash J. [place] ?ID#: ?[id number] ? : ?1940 ? Procedure Date: ? November 16, 2020 ?Case #: ? [id number] ? Room: ? 6 ? Case Physician: ? Fabien Devine, M.D. ? Start: ?14:11 ? Admission: ??11/16/2020 ? Referring ? Zamzam A Bee, REFRACTIVE SURGEON ?Discharge: ??11/17/2020 ? Physicians: ?Ricki Kymberly, M.D. ? Procedures: ?* Coronary Angiography ?* [...] procedure was Elective. The indication for ?the photo lab specialist visit is worsening angina and other indication. [...] on chronic DAPT on arrival to the photo lab specialist. ?Recommended anti-platelet/anti-thrombotic regimen: ?Start aspirin 81 mg daily now and continue for indefinitely. ?Continue clopidogrel 75 mg daily for indefinitely. ?These recommendations are made at the time of the intervention. Patient ?and provider preferences or a changing clinical situation may require ?modification of this regimen. Consult [facility] Interventional Cardiology for ?questions. ?The 1 year [...] is anatomically normal without apparent disease ?DUVAL ?Rcoi-iq-dcvt anastomosis to the diag is widely patent [...] Procedure Note Fabien Devine MD - 12/14/2020 [facility] Cardiac Catheterization/Intervention Report Patient Name: Vikash Álvarez Procedure Date: 11/16/2020 A #: [id number] Primary Physician: Fabien Devine V Case #: [id number] File Name: [id number] Catheterization Order Number: [id number] [facility] FinalReport [place], [place] Patient Name: Vikash Álvarez ID#:[id number] :1940 Procedure Date: November 16, 2020 Case [...] patient was designated as ASAClass III. The [facility] clinical frailty scale is 4: Vulnerable. Diagnostic [...] diagnostic procedure was Elective. Theindication for the photo lab specialist visit is worsening angina and other indication. [...] 10.6 minutes, dose area product was 89,700 oEBcn9rug air kerma was 1,157 mGY. See the [...] priority for the procedure was Elective. The [facility] indication for the procedure was Stable angina. [...] on chronic DAPT on arrival to the photo lab specialist. Recommended anti-platelet/anti-thrombotic regimen: Start aspirin 81 mg daily now and continue for indefinitely. Continue clopidogrel 75 mg daily for indefinitely. These recommendations are made at the time of the intervention.Patient and provider preferences or a changing clinical situation mayrequire modification of this regimen. Consult [facility] Interventional Cardiologyfor questions. The 1 year bleeding [...] Hemodynamics RA: RV: 38/-/6 PA: 34/11/21 PCW: Coronary Angiography: Anatomically normal right dominant circulation LMCA: Without angiographic apparent disease LAD: Minimal luminal irregularities noted, Mid -Vessel occlusion LCx: High grade proximal lesion with competitiveflow in the large OM (See SVG below) RCA: Not injected L Subclavian is anatomically normal without apparent disease DUVAL Rouy-eu-vela anastomosis to the diag is widelypatent End-to-side [...] (Bezet) 440 ms MUSE SYSTEM Calculated P [place] 46 degrees MUSE SYSTEM Calculated R [place] -7 degrees MUSE SYSTEM Calculated T [place] 97 degrees MUSE SYSTEM INTERPRETATION Atrial-paced rhythm with prolonged AV conduction Low voltage QRS Septal infarct (cited on or before 18-MAY-2017) Abnormal ECG When compared with ECG of 12-MAY-2020 10:05, No significant change was found Confirmed by MD Waldo, John ([id number]) on 11/16/2020 4:53:57 PM MUSE SYSTEM 11/16/2020 12:4 5 PM EDT 11/16/2020 4:53 PM EDT Harshil Zuniga MD ECG ORDERABLES MUSE SYSTEM * (ABNORMAL) BMP w/fasting Glucose (11/16/2020 10:00 AM EDT) Glucose Fasting 92 65 - 99 mg/dL [facility] Comment: ?Fasting* Glucose Interpretive Criteria Normal [...] of Diabetes Mellitus, Position Statement from the [place] [employer]. ??Diabetes Care, Volume 33, Supplement 1, Aug 2009 Blood Urea Nitrogen 26(H) 10 - 20 mg/dL [facility] Creatinine 1.07 0.80 - 1.50 mg/dL [facility] Sodium 140 135 - 145 mmol/L [facility] Potassium 4.8 3.5 - 5.0 mmol/L [facility] Comment: Please note: ??Patients with WBC >100,000 may have falsely elevated Potassium levels. ??For accurate Potassium quantification in these patients send serum separator tube (gold top) for subsequent determinations. ??Contact the Clinical Chemistry Laboratory if there are any questions. Chloride 102 98 - 107 mmol/L [facility] Carbon Dioxide 30 22 - 31 mmol/L [facility] Anion Gap 8 5 - 15 mmol/L [facility] Calcium 9.4 8.5 - 10.5 mg/dL [facility] Est Glomerular Filtration Rate 65 >=60 mL/min/1. 73 m?? [facility] Comment: This patient? s estimated glomerular [...] Agency Comment Spec In Lab Zamzam Gamboa REFRACTIVE SURGEON CHEMISTRY ORDERAB LES [facility] [address] [place] [address] documented in this encounter Visit Diagnoses Diagnosis Substernal chest pain- Primary Precordial pain Substernal chest pain Precordial pain Coronary arteriosclerosis Coronary atherosclerosis of unspecified type of vessel, [place] or graft Coronary artery disease involving coronary bypass graft of [place] heart, angina presence unspecified S/P coronary artery stent placement Postsurgical percutaneous transluminal coronary angioplasty status Substernal chest pain Precordial pain documented in [...] EVERY EVENING, First dose on Fri11/16/20 at 2045, Until Discontinued, Routine Given 11/16/2020 9:47 PM EDT 40 mg clopidogreL (Plavix) tablet 75 mg 75 mg, Oral, DAILY, First dose on Fri11/16/20 at 2045, Until Discontinued, Routine Given 11/17/2020 9:31 AM EDT 75 mg Given 11/16/2020 9:46 PM EDT 75 mg fentaNYL (pf) (50 mcg/mL) multi-dose injection ONCE PRN, Starting on Fri11/16/20 at 1359, Until Fri11/16/20 at 1907, Cath (Intra-Procedure), Routine Given 11/16/2020 1:59 PM EDT 25 mcg fentaNYL (pf) (50 mcg/mL) multi-dose injection ONCE PRN, Starting on Fri11/16/20 at 1502, Until Fri11/16/20 at 1907, Intra-Operative (Intra-Procedure), Routine Given 11/16/2020 3:24 PM EDT 12.5 mcg Given 11/16/2020 3:02 PM EDT 12.5 mcg furosemide (Lasix) tablet 20 mg 20 mg, Oral, DAILY, First dose on Fri11/17/20 at 0900, Until Discontinued, Routine Given 11/17/2020 9:31 AM EDT 20 mg heparin (porcine) (1,000 units/mL) injection ONCE PRN, Starting on Fri11/16/20 at 1505, Until Fri11/16/20 at 1907, Cath (Intra-Procedure), Routine Given 11/16/2020 3:05 PM EDT 2,000 Units lidocaine (Xylocaine) 1% (10 mg/mL) injection 3 mg 3 mg (0.3 mL), Subcutaneous, ONCE PRN, 1 dose, Starting on Fri11/16/20 at 1948, Until Fri11/17/20 at 1356, with discomfort with PIV insertion, Cath (Day of Procedure), Routine lisinopriL (Prinivil;Zestril) tablet 2.5 mg 2.5 mg, Oral, DAILY, First dose on Fri11/16/20 at 2045, Until Discontinued, Routine Given 11/17/2020 9:30 AM EDT 2.5 mg Given 11/16/2020 9:47 PM EDT 2.5 mg metoprolol tartrate (Lopressor) tablet 50 mg 50 mg, Oral, EVERY 12 HOURS SCHEDULED (2 times per day), First dose on Fri11/16/20 at 2100, Until Discontinued, Routine Given 11/16/2020 9:46 PM EDT 50 mg midazolam (pf) (Versed) (1 mg/mL) multi-dose injection ONCE PRN, Starting on Fri11/16/20 at 1400, Until Fri11/16/20 at 1907, Cath (Intra-Procedure), Routine Given 11/16/2020 3:24 PM EDT 0.5 mg Given 11/16/2020 3:02 PM EDT 0.5 mg Given 11/16/2020 2:00 PM EDT 1 mg nitroGLYcerin 100 mcg/mL intracoronary dilution ONCE PRN, Starting on Martha 11/16/20 at 1510, Until Martha 11/16/20 at 1907, Cath (Intra-Procedure), Routine Given 11/16/2020 3:10 PM EDT 150 mcg sodium chloride 0.9 % (flush) flush 5 mL 5 mL, Intravenous, EVERY 12 HOURS, First dose on Martha 11/16/20 at 204, Until Discontinued, Cath (Day of Procedure), Routine Given 11/17/2020 9:32 AM EDT 5 mLs Given 11/16/2020 9:48 PM EDT 5 mLs sodium chloride 0.9 % (flush) flush 5-20 mL 5-20 mL, Intravenous, EVERY 1 MIN PRN, Starting on Fri11/16/20 at 1948, Until Fri11/17/20 at 1356, flush, Flush pertains to all indwelling lines. Flush per protocol found in the job aid using the link provided on this medication record., Cath (Day of Procedure), Routine sodium chloride 0.9% infusion CONTINUOUS PRN, Starting on Martha 11/16/20 at 1543, Until Martha 11/16/20 at 1543, Cath (Intra-Procedure) New Bag 11/16/2020 3:43 PM EDT 500 mLs documented in this encounter Active and Recently Administered Medications Times are shown in EDT. Scheduled Medication Order 11/15/2020 11/16/2020 11/17/2020 aspirin chewable tablet 324 mg (COMPLETED) 324 mg, Oral, ONCE, 1 dose, On Fri11/16/20 at 1830, Cath (Intra-Procedure), Routine 180 (Given - Provider: Harshil Fraser RN) aspirin [...] Oral, DAILY, First dose on Fri11/16/20 at 204, Until Discontinued, Routine 214 (Given - Provider: Meli Veloz RN) 0931 (Given - Provider: Ilene Shaver LPN) furosemide (Lasix) tablet 20 mg 20 mg, Oral, DAILY, First dose on Fri11/17/20 at 0900, Until Discontinued, Routine 0931 (Given - Provid er: Ilene Shaver LPN) [...] (Due) documented in this encounter Care Teams Customer Accounts Advisor Relationship Specialty Start Date End Date Ricki Traylor MD [facility] [place] [address] PCP - General General Internal Medicine 05/30/1710/09 documented as of this encounter
--- OUTSIDE RECORDS SUMMARY | 2024-06-16 15:32 | XMS_ITS | Encounter Summary ---
[place] [address] Care Team Providers Care Emt Paramedic Name Role Phone Ricki Traylor MD Primary Care Provider [phone] Encounter Details Date Type Department Care Team (Late st Contact Info) Description 08/16/2020 Orders Only Cardiology at [address] [phone] Social History Tobacco Use Types Packs/Day Years Used Date Smoking Tobacco: Former Cigarettes 1 04 09 335 - [phone] Smokeless Tobacco: Never Alcohol Use Standard Drinks/Week [...] AM EST Hospital Encounter Non-Invasive [place] [phone] Arrived documented as of this encounter Procedures Procedure Name Priority Date/Time Associated Diagnosis Comments CARDIAC DEVICE CHECK - REMOTE SCHEDULED Routine 08/16/2020 3:21 AM EST documented in this encounter Results * Cardiac device check - Remote Scheduled (08/16/2020 3:21 AM EST) Date Time Interrogation Session IDCO Type Interrogation Session Remote Scheduled IDCO Clinic Name [facility] IDCO Battery Date Time of Measurements IDCO Battery Status Beginning of Service IDCO Battery Remaining Longevity 66 mo IDCO Battery Remaining Percentage 100 % IDCO Episode Identifier APM-24 IDCO Episode Date Time IDCO Episode Type Category Periodic EGM IDCO Episode Vendor Type Category APMRT IDCO Episode Detection And Therapy Details Presenting EGM IDCO Episode Identifier [id number] IDCO Episode Date Time IDCO Episode Type Category Other IDCO Episode Vendor Type Category IDCO Episode Duration IDCO Episode Detection And Therapy Details RA Auto IDCO Episode Identifier [id number] IDCO Episode Date Time IDCO Episode Type Category Other IDCO Episode Vendor Type Category IDCO Episode Duration IDCO Episode Detection And Therapy Details RV Auto IDCO Episode Statistic Type Category VT IDCO Episode Statistic Vendor Type Category IDCO Episode Statistic Recent Count 0 IDCO Episode Statistic Recent Date Time Start 20200512 IDCO Episode Statistic Recent Date Time End 20200816 IDCO Episode Statistic Type Category SVT IDCO Episode Statistic Vendor Type Category SVT IDCO Episode Statistic Recent Count 0 IDCO Episode Statistic Recent Date Time Start 20200512 IDCO Episode Statistic Recent Date Time End 20200816 IDCO Episode Statistic Type Category VT IDCO Episode Statistic Vendor Type Category NSVT IDCO Episode Statistic Recent Count 0 IDCO Episode Statistic Recent Date Time Start 20200512 IDCO Episode Statistic Recent Date Time End 20200816 IDCO Episode Statistic Type Category AT/AF IDCO Episode Statistic Vendor Type Category ATR IDCO Episode Statistic Recent Count 0 IDCO Episode Statistic Recent Date Time Start 20200512 IDCO Episode Statistic Recent Date Time End 20200816 IDCO Episode Statistic Type Category Other IDCO Episode Statistic Vendor Type Category IDCO Episode Statistic Recent Count 0 IDCO Episode Statistic Recent Date Time Start 20200512 IDCO Episode Statistic Recent Date Time End 20200816 IDCO Zeferino Setting AT Mode Switch Mode [...] L311 IDCO Implantable Pulse Generator Serial Number [id number] IDCO Implantable Pulse Generator [employer] IDCO Implantable Pulse Generator Implant Date 20170108 IDCO Implantable Lead Model 7741 IDCO Implantable Lead Serial Number [id number] IDCO Implantable Lead [employer] IDCO Implantable Lead Implant Date IDCO Implantable Lead Polarity Type Bipolar Lead IDCO Implantable Lead Location Right Atrium IDCO Implantable Lead Model [id number] IDCO Implantable Lead Serial Number [id number] IDCO Implantable Lead [employer] IDCO Implantable Lead Implant Date IDCO Implantable Lead Polarity Type Bipolar Lead IDCO Implantable Lead Location Right Ventricle IDCO Lead Channel Measurements Date and Time Start 20200814 IDCO Lead Channel Sensing Intrinsic Amplitude Mean 4.4 mV IDCO Lead Channel Sensing Polarity Bipolar IDCO Lead Channel Pacing Threshold Amplitude 0.7 V IDCO Lead Channel Pacing Threshold Pulse Width 0.4 ms IDCO Lead Channel Pacing Threshold Measurement Method Device Automatic IDCO Lead Channel Pacing Threshold Polarity Bipolar IDCO Lead Channel Impedance Value 512 ohms IDCO Lead Channel Impedance Polarity Bipolar IDCO Lead Channel Measurements Date and Time Start 20200814 IDCO Lead Channel Sensing Intrinsic Amplitude Mean 23.9 mV IDCO Lead Channel Sensing Polarity Bipolar IDCO Lead Channel Pacing Threshold Amplitude 1.2 V IDCO Lead Channel Pacing Threshold Pulse Width 0.4 ms IDCO Lead Channel Pacing Threshold Measurement Method Device Automatic IDCO Lead Channel Pacing Threshold Polarity Bipolar IDCO Lead Channel Impedance Value 752 ohms IDCO Lead Channel Impedance Polarity Bipolar IDCO Statistic Date Time Start 20200512 IDCO Statistic Date Time End 20200816 IDCO Zeferino Statistic Date Time Start 20200512 IDCO Zeferino Statistic Date Time End 20200816 IDCO Zeferino Statistic RA Percent Paced 30 % IDCO Zeferino Statistic RV Percent Paced 0 % IDCO Atrial Tachy Statistic Date Time Start 20200514 IDCO Atrial Tachy Statistic Date Time End 20200815 IDCO Atrial Tachy Statistic AT/AF [place] Percent 0 % IDCO Anatomical Region Laterality Modality Other 08/16/2020 3:21 AM EST Physician Cardiology IMPLANTABLE CARD IAC DEVICE documented in this encounter Visit Diagnoses Not on filedocumented in this encounter Care Teams Emt Paramedic Relationship Specialty Start Date End Date Ricki Traylor MD [facility] [place] [address] PCP - General General Internal Medicine 05/30/1710/09 documented as of this encounter
--- OUTSIDE RECORDS SUMMARY | 2024-06-16 15:32 | XMS_ITS | Encounter Summary ---
Author Organization [facility] [place] [address] Care Team Providers Care Speed Reading Teacher Name Role Phone Ricki Traylor MD Primary Care Provider [phone] Encounter Details Date Type Department Care Team (Late st Contact Info) Description 11/20/2020 Telephone Cardiology at [address] [phone] Viktoria Banegas RN Social History Tobacco Use Types Packs/Day Years Used Date Smoking Tobacco: Former Cigarettes 1 04 09 373 - [phone] Smokeless Tobacco: Never Alcohol Use Standard Drinks/Week Comments Yes 1 (1 standard drink = 0.6 oz pur e alcohol) 1-2 drinks per week Sex and Gender Information Value Date Recorded Sex Assigned at Not on file Gender Identity Not on file Sexual Orientation Not on file documented as of this encounter Miscellaneous Notes * Telephone Encounter - Viktoria Banegas RN - 11/20/2020 10:13 AM EDT Per ANTOINETTE Gamboa pt contacted s/p HCK on 11/17/20. States hs is doing well. Is able to get around with mild discomf in cath insertion site, rt groin. Reinforced teaching to watch for infection in the insertion site and given the number to call with any questions/concerns to HF team (Dr Mills). Review of meds has him taking them as listed. Reports good understanding of the medications and the reason for taking then. He is wanting to do cardiac rehab but wants to get it done at [facility] in [place], [place]. ANTOINETTE Gamboa will order this. documented in this encounter Plan of Treatment Upcoming Encounters Date Type Department Care Team (Late st Contact Info) Description 08/31/2024 10:00 AM EST Hospital Encounter Non-[place] [address] Arrived documented as of this encounter Visit Diagnoses Not on filedocumented in this encounter Care Teams Speed Reading Teacher Relationship Specialty Start Date End Date Ricki Traylor MD [facility] GENER[facility] INTERNAL [place] [address] PCP - General General Internal Medicine 05/30/1710/09 documented as of this encounter
--- OUTSIDE RECORDS SUMMARY | 2024-06-16 15:32 | XMS_ITS | Encounter Summary ---
Author Organization [facility] [place] [address] Care Team Providers Care Client Sales And Service Officer Name Role Phone Ricki Traylor MD Primary Care Provider [phone] Reason for Visit * Reason Comments Medication Refill Encounter Details Date Type Department Care Team (Late st Contact Info) Description 10/29/2020 Refill [place] [phone] Ricki Traylor MD [facility] [address] [place] [address] Social History Tobacco Use Types Packs/Day Years [...] AM EST Hospital Encounter Non-[place] [phone] Arrived documented as of this encounter Visit Diagnoses Not on filedocumented in this encounter Care Teams Client Sales And Service Officer Relationship Specialty Start Date End Date Ricki Traylor MD [facility] [address] [place] [address] PCP - General General Internal Medicine 05/30/1710/09 documented as of this encounter
--- OUTSIDE RECORDS SUMMARY | 2024-06-16 15:32 | XMS_ITS | Encounter Summary ---
Author Organization [facility] Address [facility] [place] [address] Care Team Providers Care Crown Attacher Name Role Phone Ricki Traylor MD Primary Care Provider [phone] Reason for Visit * Reason Comments Abdominal Pain blood in urine and l ower abdominal pain Encounter Details Date Type Department Care Team (Late st Contact Info) Description 03/21/2020 2:20 PM EDT Office [place] [phone] Olena Cook MD [facility] [place] [address] Hematuria, unspecified type Social History Tobacco Use Types Packs/Day Years Used Date Smoking Tobacco: Former Cigarettes 1 25 1 718 - 3823 Smokeless Tobacco: Never Alcohol Use Standard Drinks/Week Comments No 0 (1 standard drink = 0.6 oz pur e alcohol) Sex and Gender Information Value Date Recorded Sex Assigned at Not on file Gender Identity Not on file Sexual Orientation Not on file documented as of this encounter Last Filed Vital Signs Vital Sign Reading Time Taken Comments Blood Pressure 103/52 03/21/2020 2:11 PM EDT Pulse 73 03/21/2020 2:11 PM EDT Temperature 36.9 ??C (98.4 ??F) 03/21/2020 2:11 PM ED T Respiratory Rate 18 03/21/2020 2:11 PM EDT Oxygen Saturation 97% 03/21/2020 2:11 PM EDT Inhaled Oxygen Concentration - - Weight 91.2 kg (201 lb) 03/21/2020 2:11 PM EDT Height 173.5 cm (5' 8.31) 03/21/2020 2:11 PM ED T Body Mass Index 30.29 03/21/2020 2:11 PM EDT documented in this encounter Patient Instructions * Patient Instructions* Olena Cook MD - 03/21/2020 2:20 PM EDT 1. Hematuria, unspecified type - POCT urine dipstick - Urinalysis with reflex Culture - Bladder scan - nitrofurantoin (Macrobid) 100 mg Capsule; Take 1 capsule by mouth 2 times daily for 7 days. Dispense: 14 capsule; Refill: 0 - phenazopyridine (Pyridium) 100 mg Tablet; Take 1 tablet by mouth 2 times daily as needed for Pain. Dispense: 10 tablet; Refill: 0 If you continue to have blood weeks later, please let us know Future Appointments Date Time Provider Department Center 05/30/2020 10:00 AM Harshil Marte MD [facility] [address] [place] [address] 05/30/2020 11:30 AM Harshil Marte MD [facility] [address] [place] [address] documented in this encounter Progress Notes * Olena Cook MD - 03/21/2020 2:20 PM EDT Subjective: Patient ID: Vikash Álvarez is a 79 y.o. male. Chief Complaint Patient presents with ??? Abdominal Pain blood in urine and lower abdominal pain HPI Here today with his H/o prostatectomy 1999 in [place] Notes that his urination has worsened over the past few years He has nocturia 5-6x, very little output For the past 3 days he has noted cramping across lower abdomen He notes hematuria with urination - some specks Spent all day yesterday feeling a little better Now every 10-15 minutes he has to urinate with blood and specks of blood. No actual clots. Not cloudy. Notes burning sensation and urgency. No history of UTI Has taken peptobismol for his stomach No kidney pain but does have mild ache Ow/ he feels crappy He is using a wheelchair b/c of his incontinence every time he has to urinate. Taking acam for pain Stable heart, on his meds Review of Systems No recent infections. No fevers or chills. No n/v/ Stable weight. No constipation or diarrhea, nausea or vomitting no chest pain or palpitations No shortness of breath or cough No new rashes or joint pains Social History Social History Narrative Lives with Mikal, 53 years. Moved to [place] in April 2017 to be near their daughter (Lisa) at her request. She is very helpful to them. Lisa is with an 11 year old daughter (Isha). They have another daughter, Maddy, recently divorces and has moved to the [facility]. He and Mikal grew up and have lived in the [place] area their whole lives. 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 He likes to posey, fish, spend time with Isha, go to the beach, make art with [employer]. Wekeep very busy. No reid practice. They have travelled the world extensively. Enjoys birding. Objective: BP 103/52 (BP Location (NBP): Right arm, Patient Position: Sitting, BP Cuff Sizes: Adult (25-34 cm)) Pulse 73 Temp 36.9 ??C (98.4 ??F) (Oral) Resp 18 Ht 173.5 cm (5' 8.31) Wt 91.2 kg (201 lb) SpO2 97% BMI 30.29 kg/m?? PHQ9 Questionnaires Data (Clinic and Pt Entered): Today's value PHQ-9 QUESTIONNAIRE (AMB) 09/23/2019 Little interest or pleasure (Clinic) - Little interest or pleasure (Patient) Not at all Down, depressed, hopeless (Clinic) - Down, depressed, hopeless (Patient) Not at all GAD7 NIKHIL-7 Patient Reported Responses 09/23/2019 Nervous, anxious (Patient) Not at all Unable to stop worrying (Patient) Not at all Wt Readings from Last 3 Encounters: 03/21/20 91.2 kg (201 lb) 09/23/19 91.2 kg (201 lb) 09/15/19 92.5 kg (204 lb) Physical Exam Constitutional: General: He is not in acute distress. Appearance: He is well-developed. HENT: Head: Normocephalic and atraumatic. Eyes: General: No scleral icterus. Abdominal: Palpations: Abdomen is soft. Tenderness: There is abdominal tenderness (suprapubic). There is no right CVA tenderness or left CVA tenderness. Comments: PVR 34 Psychiatric: Behavior: Behavior normal. Thought Content: Thought content normal. Urine dip sg 1.01, pH 5, ++ luek, pos nit, 250 blood Lab Results Component Value Date NA 141 06/26/2017 K 4.9 06/26/2017 CL 99 06/26/2017 CO2 32 (H) 06/26/2017 BUN 26 (H) 06/26/2017 CREATININE 1.10 06/26/2017 GLUCOSE 110 06/26/2017 GLUCFASTING 93 05/20/2017 CALCIUM 9.1 06/26/2017 Assessment and Plan: Vikash Álvarez is a 79 y.o. male 1. Hematuria, unspecified type - c/w UTI, no prostate so no need for FQ rx. First line would be macrobid x 7 d, pyridium for spasms. Normal bladder scan - no evidence for obstruction. - POCT urine dipstick - Urinalysis with reflex Culture - Bladder scan - nitrofurantoin (Macrobid) 100 mg Capsule; Take 1 capsule by mouth 2 times daily for 7 days. Dispense: 14 capsule; Refill: 0 - given his spasms - phenazopyridine (Pyridium) 100 mg Tablet; Take 1 tablet by mouth TID PRN x 2 donly - updated rx sent to pharmacy rtc if ongoing. If you continue to have blood weeks later, please let us know documented in this encounter Plan of Treatment Upcoming Encounters Date Type Department Care Team (Late st Contact Info) Description 08/31/2024 10:00 AM EST Hospital Encounter Non-[place] [address] Arrived documented as of this encounter Procedures Procedure Name Priority Date/Time Associated Diagnosis Comments URINALYSIS MICROSCOPIC EXAM Routine 03/21/2020 2:01 PM EDT URINALYSIS WITH REFLEX CULTURE Routine 03/21/2020 2:01 PM EDT Hematuria, unspecified type POCT URINE DIPSTICK Routine 03/21/2020 2 :01 PM EDT Hematuria, unspecified type URINE CULTURE Routine 03/21/2020 2:01 PM EDT BLADDER SCAN Routine 03/21/2020 Hematuria, unspecified type documented in this encounter Results * (ABNORMAL) Urine culture (03/21/2020 2:01 PM EDT) Urine Culture Greater than 100,000 cfu/ml Escherichia coli(A) [facility] Organism Escherichia coli(A) [facility] First stream urine specimen (specimen) 03/21/2020 2:01 PM EDT 03/21/2020 5:02 PM EDT Narrative Resulting Agency Comment Spec In Lab Organism Antibiotic Method Susceptibility Escherichia coli Amikacin VITEK 2 METHOD Sensitive Escherichia coli Ampicillin + Sulbactam VITEK 2 METHOD Sensitive Escherichia coli Aztreonam VITEK 2 METHOD Sensitive Escherichia coli Cefazolin VITEK 2 METHOD Sensitive Escherichia coli Ceftazidime VITEK 2 METHOD <=1: Sensitive Escherichia coli Ceftriaxone VITEK 2 METHOD Sensitive Escherichia coli Ertapenem VITEK 2 METHOD Sensitive Escherichia coli Gentamicin VITEK 2 METHOD Sensitive Escherichia coli Levofloxacin VITEK 2 METHOD Sensitive Comment: Levofloxacin and Ciprofloxacin may not adequately treat infections in critically ill patients even when isolates test susceptible in the laboratory. Contact Infectious Disease before using in critically ill patients. Escherichia coli Meropenem VITEK 2 METHOD <=0.25: Sensitive Escherichia coli Nitrofurantoin VITEK 2 METHOD Sensitive Escherichia coli Piperacillin/Tazobactam VITEK 2 METHO D <=4: Sensitive Escherichia coli Tetracycline VITEK 2 METHOD Sensitive Escherichia coli Tobramycin VITEK 2 METHOD Sensitive Escherichia coli Trimethoprim/Sulfa VITEK 2 METHOD Sensitive Olena Cook MD MICROBIOLOGY - [facility] AL ORDERABLES [facility] [place] [address] * (ABNORMAL) Urinalysis Microscopic Exam (03/21/2020 2:01 PM EDT) RBC, Urine >100(H) 0 - 3 /HPF [facility] WBC, Urine >100(H) 0 - 3 /HPF [facility] WBC Clumps, Urine Occasional (A) None /HPF [facility] Bacteria, Urine Many(A) None /HPF [facility] Hyaline Casts, Urine 6(H) 0 - 2 /LPF [facility] First stream urine specimen (specimen) 03/21/2020 2:01 PM EDT 03/21/2020 2:38 PM EDT Narrative Resulting Agency Comment Spec In Lab Olena Cook MD URINE ORDERABLES [facility] [place] [address] * (ABNORMAL) Urinalysis with reflex Culture (03/21/2020 2:01 PM EDT) Glucose, Urine Dipstick Negative Negative mg/dL [facility] Protein, Urine Dipstick >=300(A) Negative mg/dL [facility] Bilirubin, Urine Dipstick Small(A) Negative mg/dL [facility] Comment: Clinical correlation required for positive Urine Bilirubin results as false positive may occur with some drugs and drug related products. If a false positive is suspected a serum total bilirubin should be considered if clinically indicated. Urobilinogen, Urine Dipstick Normal Normal mg/dL [facility] pH, Urn (dipstick) 6.0 5.0 - 8.0 [facility] Blood, Urine Dipstick Large(A) Negative mg/dL [facility] Ketone, Urine Dipstick Negative Negative mg/dL [facility] Nitrite, Urine Dipstick Positive(A) Negative [facility] Leukocytes, Urine Dipstick Large(A) Negative [facility] Appearance, Urine Dipstick Turbid(A) Clear [facility] Specific [place] Urine Automated 1.016 1.006 - 1.030 [facility] Color, Urine Dipstick Rich(A) Yellow [facility] Reflex to Culture Yes [facility] First stream urine specimen (specimen) 03/21/2020 2:01 PM EDT 03/21/2020 2:38 PM EDT Narrative Resulting Agency Comment Spec In Lab lOena Cook MD URINE ORDERABLES [facility] [place] [address] * POCT urine dipstick (03/21/2020 2:01 PM EDT) POC Sp [place] 1.01 1.002 - 1.030 POC pH, UA 5 5.0 - 8.5 POC Leuk, UA ++ Negative - Negative POC Nitrite, UA Pos Negative - Negative POC Protein, UA trace Negative - Negative mg/dL POC Glucose, UA norm Normal - Normal mg/dL POC Ketone, UA neg Negative - Negative POC Urobil, UA norm 0.2 - 1.0 mg/dL POC Bili, UA neg Negative - Negative POC Blood, UA 250 Negative - Negative hubert/uL 03/21/2020 2:01 PM EDT Olena Cook MD POINT OF CARE TEST O RDERABLES * Bladder scan (03/21/2020) Olena Cook MD NURSING TREATMENT OR DERABLES - ONCE OR AT INTERVALS documented in this encounter Visit Diagnoses Diagnosis Hematuria, unspecified type documented in this encounter Care Teams Crown Attacher Relationship Specialty Start Date End Date Ricki Traylor MD [facility] [place] [address] PCP - General General Internal Medicine 05/30/1710/09 documented as of this encounter
--- OUTSIDE RECORDS SUMMARY | 2024-06-16 15:33 | XMS_ITS | Encounter Summary ---
Author Organization [facility] Address [facility] [place] [address] Care Team Providers Care Pastor Name Role Phone Ricki Traylor MD Primary Care Provider [phone] Encounter Details Date Type Department Care Team (Late st Contact Info) Description 08/09/2019 Telephone [place] [phone] Mariana Granados Social History Tobacco Use Types Packs/Day Years Used Date Smoking Tobacco: Former Cigarettes 1 04 09 005 - 4494 Smokeless Tobacco: Never Alcohol Use Standard Drinks/Week Comments No 0 (1 standard drink = 0.6 oz pur e alcohol) Sex and Gender Information Value Date Recorded Sex Assigned at Not on file Gender Identity Not on file Sexual Orientation Not on file documented as of this encounter Miscellaneous Notes * Telephone Encounter - Mariana Granados - 08/09/2019 2:28 PM EST Left to assist in scheduling phy per RX request. Unable to leave due to being full documented in this encounter Plan of Treatment Upcoming Encounters Date Type Department Care Team (Late st Contact Info) Description 08/31/2024 10:00 AM EST Hospital Encounter [place] [phone] Arrived documented as of this encounter Visit Diagnoses Not on filedocumented in this encounter Care Teams Pastor Relationship Specialty Start Date End Date Ricki Traylor MD [facility] [place] [address] PCP - General General Internal Medicine 05/30/1710/09 documented as of this encounter
--- OUTSIDE RECORDS SUMMARY | 2024-06-16 15:33 | XMS_ITS | Encounter Summary ---
Author Organization [facility] Address [facility] [place] [address] Care Team Providers Care First Line Supervisor Name Role Phone Ricki Traylor MD Primary Care Provider [phone] Reason for Visit * Reason Comments Procedure ED&C Encounter Details Date Type Department Care Team (Late st Contact Info) Description 06/18/2019 1:00 PM EST Office Visit Dermatology at [facility] [address] [place] [address] Call, Jaylan Sawyre MD [facility] [address] [place] [address] SCC (squamous cell carcinoma) Social History Tobacco Use Types Packs/Day Years Used Date Smoking Tobacco: Former Cigarettes 1 25 1 615 - 4724 Smokeless Tobacco: Never Alcohol Use Standard Drinks/Week Comments No 0 (1 standard drink = 0.6 oz pur e alcohol) Sex and Gender Information Value Date Recorded Sex Assigned at Not on file Gender Identity Not on file Sexual Orientation Not on file documented as of this encounter Patient Instructions * Patient Instructions* Olga Herron, [facility] - 06/18/2019 1:00 PM EST Treatment and Wound Care Instructions Your treatment today: You have had an Electrodessication and Curretage (ED&C) of your skin, which is a method to remove skin cancer. This wound will heal without stitches. Allow 3-6 weeks for the wound to heal. If bleeding occurs, hold firm pressure against the wound for 15 minutes. If bleeding continues, calls the office or go to your local emergency room. Wound Care Instructions: You will need to keep the dressing placed over the wound dry and intact for 24 hours. Afterwards, perform the following wound care daily: ?? Wash your hands before changing the dressing. ?? Remove the bandage and clean the area with mild soap and water, then gently pat the area dry. ?? Apply a small amount of Vaseline to the area, then cover the wound with a band-aid. Change your dressing daily until the wound is fully healed. ?? A small amount of yellow drainage is part of normal healing. The area might appear as a small depression with redness around the edge of the wound. This is normal. ?? Please contact the office you you notice any of the following signs of infection: increased tenderness, pain, drainage, or redness that becomes hot or hard around the wound. If you have further questions or concerns, please call the office at [phone]. If it is after 5PM, or a holiday or weekend, please call [phone] and ask for the Taxation Accountant on-call. documented in this encounter Progress Notes * CallJaylan - 06/18/2019 1:00 PM EST Images from the original note were not included. DERMATOLOGY - ESTABLISHED PATIENT FOLLOW-UP Date of service: 06/18/2019 Vikash Álvarez : 1940, 78 y.o. Chief Complaint: Chief Complaint Patient presents with ??? Procedure ED&C HPI: Vikash Álvarez is a 78 y.o. male last seen by myself on 05/05/2019. Mr. 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 Family History: Melanoma:??None ?? Relevant Social History: -?? - Lives in [place], [place] Medications: Current Outpatient Medications Medication Sig Dispense Refill ??? lisinopril (PRINIVIL;ZESTRIL) 5 mg Tablet TAKE 1 TABLET BY MOUTH ONCE DAILY 90 tablet 0 ??? metoprolol tartrate (LOPRESSOR) 50 mg Tablet TAKE 1 TABLET BY MOUTH TWICE A DAY 180 tablet 0 ??? atorvastatin (LIPITOR) 40 mg Tablet TAKE 1 TABLET BY MOUTH EVERY EVENING 90 tablet 0 ??? triamcinolone (KENALOG) 0.1 % Ointment Use 2 times daily to lower extremities for 1 week, take a week off, repeat cycle if needed. 454 g 0 ??? clopidogrel (PLAVIX) 75 mg Tablet Take 1 tablet by mouth daily. 90 tablet 3 ??? furosemide (LASIX) 20 mg Tablet Take 1 tablet by mouth daily. 90 tablet 3 ??? aspirin (ASPIRIN) 81 mg Tablet, Chewable Take 81 mg by mouth daily. 30 tablet 3 No current facility-administered medications for this visit. Allergies: No Known Allergies Review of Systems: - General: Feels well. - Skin: No other skin concerns. Examination: - Constitutional: Patient was alert, well-appearing and in no noticeable distress. - Skin: Skin examination of the chest was normal with the exception of the findings listed below. - A female nurse was present and on standby during my examination. Diagnosis/Skin findings/Assessment/Plan: # Biopsy Proven Invasive SCC - well healed scar on the central superior chest - discussed treatment options with patient including excision and ED&C, joint decision made to proceed with ED&C today Procedure: Electrodesiccation and curettage Site: central superior chest Post-curettage defect size: 1.4 cm Discussed indications and expectations including risks and benefits. Verbal consent obtained. Skin prep. Local anesthesia: 1% lidocaine with epinephrine. The entire lesion plus a small margin was treated by curettage and electrodesiccation x3. No complications. Wound dressed. Expectations (including discomfort management) and wound care reviewed. RTC: Apr 2020 for FSE or sooner as needed Note initiated by MARIO Gomez. I, MARIO Gomez, have performed the documentation for this encounter in the presence of and acting as a scribe for Jaylan Vazquez MD. I performed the services which were documented by the scribe, and I agree with the accuracy of the documentation in this encounter. Jaylan Vazquez MD Reviewed and signed by: Jaylan Vazquez MD Resident in Dermatology [facility] Patient seen and evaluated with staff indoor landscape architect: Shalom Miller MD Section of Dermatology [facility] * Shalom Miller MD - 06/18/2019 1:00 PM EST I directly supervised the Dermatology resident during this office visit. The resident presented thehistory and physical exam to me. I then saw and examined this patient with the resident. We reviewed the history and pertinent details and I confirmed the physical findings. I agree with the details of the history and physical exam as documented in the resident's note. SHALOM MILLER MD Staff Physician documented in this encounter Plan of Treatment Upcoming Encounters Date Type Department Care Team (Late st Contact Info) Description 08/31/2024 10:00 AM EST Hospital Encounter [place] [address] Arrived documented as of this encounter Visit Diagnoses Diagnosis SCC (squamous cell carcinoma) Squamous cell carcinoma of skin, site unspecified documented in this encounter Care Teams First Line Supervisor Relationship Specialty Start Date End Date Ricki Traylor MD [facility] [place] [address] PCP - General General Internal Medicine 05/30/1710/09 documented as of this encounter
--- OUTSIDE RECORDS SUMMARY | 2024-06-16 15:33 | XMS_ITS | Encounter Summary ---
[place] [address] Care Team Providers Care Belt Weaver Name Role Phone Ricki Traylor MD Primary Care Provider [phone] Encounter Details Date Type Department Care Team (Late st Contact Info) Description 02/24/2019 Orders Only Cardiology at [address] [phone] Social History Tobacco Use Types Packs/Day Years Used Date Smoking Tobacco: Former Cigarettes 1 04 09 095 - 9231 Smokeless Tobacco: Never Alcohol Use Standard Drinks/Week [...] AM EST Hospital Encounter Non-[place] [address] Arrived documented as of this encounter Procedures Procedure Name Priority Date/Time Associated Diagnosis Comments CARDIAC DEVICE CHECK - REMOTE SCHEDULED Routine 02/24/2019 3:21 AM EDT documented in this encounter Results * (ABNORMAL) Cardiac device check - Remote Scheduled (02/24/2019 3:21 AM EDT) Date Time Interrogation Session [id number] IDCO Type Interrogation Session Remote Scheduled IDCO Clinic Name [facility] IDCO Battery Date Time of Measurements [id number] IDCO Battery Status Beginning of Service IDCO Battery Remaining Longevity 78 mo IDCO Battery Remaining Percentage 100 % IDCO Episode Identifier [id number] IDCO Episode Date Time IDCO Episode Type Category Periodic EGM IDCO Episode Vendor Type Category APMRT IDCO Episode Detection And Therapy Details Presenting EGM IDCO Episode Identifier [id number] IDCO Episode Date Time IDCO Episode Type Category Other IDCO Episode Vendor Type Category IDCO Episode Duration IDCO Episode Detection And Therapy Details RA Auto IDCO Episode Identifier [id number] IDCO Episode Date Time IDCO Episode Type Category Other IDCO Episode Vendor Type Category IDCO Episode Duration IDCO Episode Detection And Therapy Details RV Auto IDCO Episode Statistic Type Category VT IDCO Episode Statistic Vendor Type Category IDCO Episode Statistic Recent Count 0 IDCO Episode Statistic Recent Date Time Start 20180824 IDCO Episode Statistic Recent Date Time End 20190224 IDCO Episode Statistic Type Category SVT IDCO Episode Statistic Vendor Type Category SVT IDCO Episode Statistic Recent Count 0 IDCO Episode Statistic Recent Date Time Start 20180824 IDCO Episode Statistic Recent Date Time End 20190224 IDCO Episode Statistic Type Category VT IDCO Episode Statistic Vendor Type Category NSVT IDCO Episode Statistic Recent Count 0 IDCO Episode Statistic Recent Date Time Start 20180824 IDCO Episode Statistic Recent Date Time End 20190224 IDCO Episode Statistic Type Category AT/AF IDCO Episode Statistic Vendor Type Category ATR IDCO Episode Statistic Recent Count 1 IDCO Episode Statistic Recent Date Time Start 20180824 IDCO Episode Statistic Recent Date Time End 20190224 IDCO Episode Statistic Type Category Other IDCO Episode Statistic Vendor Type Category IDCO Episode Statistic Recent Count 0 IDCO Episode Statistic Recent Date Time Start 20180824 IDCO Episode Statistic Recent Date Time End 20190224 IDCO Zeferino Setting AT Mode Switch Mode DDI IDCO Zeferino Setting AT Mode Switch Rate 170 {beats}/ min IDCO Zeferino Setting Mode (NBG Code) DDDR IDCO Zeferino Setting Lower Rate Limit 60 {beats}/ min IDCO Zeferino Setting Maximum Tracking Rate 130 {beats}/ min IDCO Zeferino Setting Maximum Sensor Rate 130 {beats}/ min IDCO Zeferino Setting FELICITY Delay High 240 ms IDCO Zeferino Setting FELICITY Delay Low 210 ms IDCO Zeferino Setting PAV Delay High 300 ms IDCO Zeferino Setting PAV Delay Low 260 ms IDCO Zone Setting Type Category [place] [...] L311 IDCO Implantable Pulse Generator Serial Number [id number] IDCO Implantable Pulse Generator Masonry Instructor [employer] IDCO Implantable Pulse Generator Implant Date 20170108 IDCO Implantable Lead Model 7741 IDCO Implantable Lead Serial Number [id number] IDCO Implantable Lead Masonry Instructor [employer] IDCO Implantable Lead Implant Date IDCO Implantable Lead Polarity Type Bipolar Lead IDCO Implantable Lead Location Right Atrium IDCO Implantable Lead Model [id number] IDCO Implantable Lead Serial Number [id number] IDCO Implantable Lead Masonry Instructor [employer] IDCO Implantable Lead Implant Date IDCO Implantable Lead Polarity Type Bipolar Lead IDCO Implantable Lead Location Right Ventricle IDCO Lead Channel Measurements Date and Time Start 20190222 IDCO Lead Channel Sensing Intrinsic Amplitude Mean 3.2 mV IDCO Lead Channel Sensing Polarity Bipolar IDCO Lead Channel Pacing Threshold Amplitude 0.7 V IDCO Lead Channel Pacing Threshold Pulse Width 0.4 ms IDCO Lead Channel Pacing Threshold Measurement Method Device Automatic IDCO Lead Channel Pacing Threshold Polarity Bipolar IDCO Lead Channel Impedance Value 673 ohms IDCO Lead Channel Impedance Polarity Bipolar IDCO Lead Channel Measurements Date and Time Start 20190222 IDCO Lead Channel Sensing Intrinsic Amplitude Mean 25.0(>) mV IDCO Lead Channel Sensing Polarity Bipolar IDCO Lead Channel Pacing Threshold Amplitude 1.4 V IDCO Lead Channel Pacing Threshold Pulse Width 0.4 ms IDCO Lead Channel Pacing Threshold Measurement Method Device Automatic IDCO Lead Channel Pacing Threshold Polarity Bipolar IDCO Lead Channel Impedance Value 775 ohms IDCO Lead Channel Impedance Polarity Bipolar IDCO Statistic Date Time Start 20180824 IDCO Statistic Date Time End 20190224 IDCO Zeferino Statistic Date Time Start 20180824 IDCO Zeferino Statistic Date Time End 20190224 IDCO Zeferino Statistic RA Percent Paced 36 % IDCO Zeferino Statistic RV Percent Paced 94 % IDCO Atrial Tachy Statistic Date Time Start 20180826 IDCO Atrial Tachy Statistic Date Time End 20190223 IDCO Atrial Tachy Statistic AT/AF Spring Percent 1(<) % IDCO Anatomical Region Laterality Modality Other 02/24/2019 3:21 AM EDT Physician Cardiology IMPLANTABLE CARD IAC DEVICE documented in this encounter Visit Diagnoses Not on filedocumented in this encounter Care Teams Belt Weaver Relationship Specialty Start Date End Date Ricki Traylor MD [facility] [place] [address] PCP - General General Internal Medicine 05/30/1710/09 documented as of this encounter
--- OUTSIDE RECORDS SUMMARY | 2024-06-16 15:33 | XMS_ITS | Encounter Summary ---
Author Organization [facility] [place] [address] Care Team Providers Care Program Evaluator Name Role Phone Jaylan Quintero MD Primary Care Provider [phone] Reason for Visit * Reason Onset Date Comments Medication Refill 11/05/2019 Encounter Details Date Type Department Care Team (Late st Contact Info) Description 11/05/2019 Ref[place] [address] Sakina Waggoner Social History Tobacco Use Types Packs/Day Years [...] AM EST Hospital Encounter Non-Invasive [place] [address] Arrived documented as of this encounter Visit Diagnoses Not on filedocumented in this encounter Care Teams Program Evaluator Relationship Specialty Start Date End Date Jaylan Quintero MD PCP - General Family Medicine 12/11/21 documented as of this encounter
--- OUTSIDE RECORDS SUMMARY | 2024-06-16 15:33 | XMS_ITS | Encounter Summary ---
Author Organization [facility] [place] [address] Care Team Providers Care Digital Advertising Analyst Name Role Phone Ricki Traylor MD Primary Care Provider [phone] Encounter Details Date Type Department Care Team (Latest Contact Info) Description 09/23/2019 10:30 AM EST - 09/23/2019 11:59 PM EST Hospital Encounter [place] [phone] COPD, very severe Discharge Disposition: Home Social History Tobacco Use Types Packs/Day Years Used Date Smoking Tobacco: Former Cigarettes 1 1 135 - 1979 Smokeless Tobacco: Never Alcohol Use [...] times daily. 180 tablet 3 09/23/2019 10/31/2020 tiotropium-olodateroL (Stiolto Respimat) 2.5-2.5 mcg/actuation MistIndications:Dyspnea, unspecified type Inhale 2 puffs into the lungs 2 times daily. 4 g 3 09/23/2019 05/12/2020 albuterol 90 mcg/actuation HFA Aerosol InhalerIndications:Dyspn ea, unspecified type Inhale 2 puffs into the lungs every 4 hours as needed for Wheezing. 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 90 tablet 3 09/22/2019 09/20/2020 lisinopriL (Prinivil;Zestril) 2.5 mg TabletIndications:Garcia ry arteriosclerosis Take 1 tablet by mouth daily. 90 tablet 3 09/15/2019 10/31/2020 triamcinolone (KENALOG) 0.1 % Ointment Use 2 times daily to lower extremities for 1 week, take a week off, repeat cycle if needed. 454 g 02/01/2019 12/17/2019 documented as of this encounter Procedure Notes * Ricki Merino Jr., MD - 09/23/2019 11:59 PM ESTAssociated Order(s): PULMONARY FUNCTION TEST Pulmonary Function Testing Spirometry reveals severe airflow obstruction with concomitant reduction in forced vital capacity. Ricki Merino MD Pulmonary Medicine documented in this encounter Plan of Treatment Upcoming Encounters Date Type Department Care Team (Late st Contact Info) Description 08/31/2024 10:00 AM EST Hospital Encounter Non[place] [address] Arrived documented as of this encounter Procedures Procedure Name Priority Date/Time Associated Diagnosis Comments COMMON PULMONARY FUNCTION TEST Routine 09/23/2019 11:59 PM EST COPD, very severe documented in this encounter Results * Pulmonary Function Testing (09/23/2019 11:59 PM EST) Narrative Ricki Merino Jr., MD - 09/23/2019 11:59 PM EST Ricki Merino Jr., MD ? 09/27/2019 12:05 PM Pulmonary Function Testing Spirometry reveals severe airflow obstruction with concomitant reduction in forced vital capacity. Ricki Merino MD Pulmonary Medicine Owen Munoz MD PFT ORDERABLES documented in this encounter Visit Diagnoses Diagnosis COPD, very severe Chronic airway obstruction, not elsewhere classified documented in this encounter Care Teams Digital Advertising Analyst Relationship Specialty Start Date End Date Ricki Traylor MD [facility] GENER[facility] INTERNAL [place]IC[place] [address] PCP - General General Internal Medicine 05/30/1710/09 documented as of this encounter
--- OUTSIDE RECORDS SUMMARY | 2024-06-16 15:33 | XMS_ITS | Encounter Summary ---
Author Organization [facility] [place] [address] Care Team Providers Care Children'S Librarian Name Role Phone Ricki Traylor MD Primary Care Provider [phone] Encounter Details Date Type Department Care Team (Late st Contact Info) Description 09/27/2019 E-Consult Family Medicine at [address] [address] Jacki Murillo, [facility] Medication management Social History Tobacco Use Types Packs/Day Years Used Date Smoking Tobacco: Former Cigarettes 1 25 1 875 - 0024 Smokeless Tobacco: Never Alcohol Use Standard Drinks/Week Comments No 0 (1 standard drink = 0.6 oz pur e alcohol) Sex and Gender Information Value Date Recorded Sex Assigned at Not on file Gender Identity Not on file Sexual Orientation Not on file documented as of this encounter Miscellaneous Notes * [facility]27/2019 3:50 PM EST Select F2 to choose the appropriate response: Proceed with eConsult 1. Restatement of the question: Pt is a 78 y.o. male with COPD. Initial eConsult question was unclear but I was able to find a notein the patient's chart from 09/24 stating the Stiolto respimat inhaler was going to cost $400 and provider wondering if there is a less expensive alternative. If this is not the intended question please resubmit econsult. 2. Recommendation(s): ?? I contacted pt's insurance and was told that he does have an annual deductible that must be met which is why his copay is $400. They were not able to disclose any further details to me but stated if the patient has any questions then he should call his medicare part D plan and they can review this information with him. ?? Prices for alternatives to Stiolto would be similar until deductible is met. 3. Rationale and/or evidence for recommendation: Alternatives to Stiolto are all brand name only. Until pt meets annual deductible billing and insurance coordinator informed me the prices would be about the same for the alternatives. This eConsult is focused on the specific clinical question(s) asked by the referring clinician, is based on the clinical data available to me, the consulting physician, at the time of the request, and is furnished without benefit of a comprehensive evaluation or physical examination of the patient by me. The guidance set forth in the eConsult note will need to be interpreted in light of any clinical issues not known to me or any changes in patient status that I may not be aware of at the time of filing this eConsult. If further consultation is necessary, an in-person visit with me or another member of our group is an option. documented in this encounter Plan of Treatment Upcoming Encounters Date Type Department Care Team (Late st Contact Info) Description 08/31/2024 10:00 AM EST Hospital Encounter Non-Invasive [place] [address] Arrived documented as of this encounter Visit Diagnoses Diagnosis Medication management Encounter for long-term (current) use of other medications documented in this encounter Care Teams Children'S Librarian Relationship Specialty Start Date End Date Ricki Traylor MD [facility] GENERAL [place] [address] PCP - General General Internal Medicine 05/30/1710/09 documented as of this encounter
--- OUTSIDE RECORDS SUMMARY | 2024-06-16 15:33 | XMS_ITS | Encounter Summary ---
Author Organization [facility] [place] [address] Care Team Providers Care Plumbing Designer Name Role Phone Ricki Traylor MD Primary Care Provider [phone] Encounter Details Date Type Department Care Team (Late st Contact Info) Description 10/21/2019 External Results Cardiology at [address] [phone] Social History Tobacco Use Types Packs/Day Years Used Date Smoking Tobacco: Former Cigarettes 971 - 2667 Smokeless Tobacco: Never Alcohol Use Standard Drinks/Week [...] AM EST Hospital Encounter Non-[place] [phone] Arrived documented as of this encounter Procedures Procedure Name Priority Date/Time Associated Diagnosis Comments EP DEVICE SCAN Routine 11/25/2018 documented in this encounter Results * Scan Doc: EP Device (11/25/2018) Anatomical Region Laterality Modality Other Historical Provider MD MCMAHON MGR SCAN EX T ORDR/RSLT documented in this encounter Visit Diagnoses Not on filedocumented in this encounter Care Teams Plumbing Designer Relationship Specialty Start Date End Date Ricki Traylor MD [facility] [place] [address] PCP - General General Internal Medicine 05/30/1710/09 documented as of this encounter
--- OUTSIDE RECORDS SUMMARY | 2024-06-16 15:33 | XMS_ITS | Encounter Summary ---
Author Organization [facility] [place] [address] Care Team Providers Care Water Treatment Operator Name Role Phone Ricki Traylor MD Primary Care Provider [phone] Reason for Visit * Reason Comments Medication Refill Encounter Details Date Type Department Care Team (Late st Contact Info) Description 05/23/2019 Ref[place] [phone] Ricki Traylor MD [facility] [address] [place] [address] Social History Tobacco Use Types Packs/Day Years [...] AM EST Hospital Encounter Non[place] [phone] Arrived documented as of this encounter Visit Diagnoses Not on filedocumented in this encounter Care Teams Water Treatment Operator Relationship Specialty Start Date End Date Ricki Traylor MD [facility] [address] [place] [address] PCP - General General Internal Medicine 05/30/1710/09 documented as of this encounter
--- OUTSIDE RECORDS SUMMARY | 2024-06-16 15:33 | XMS_ITS | Encounter Summary ---
Author Organization [facility] [place] [address] Care Team Providers Care Inspector Fabric Name Role Phone Ricki Traylor MD Primary Care Provider [phone] Reason for Visit * Reason Onset Date Comments Other 09/30/2019 medications and oxygen questions Encounter Details Date Type Department Care Team (Late st Contact Info) Description 09/30/2019 Telephone [place] [address] Sakina Waggoner Other (medications and oxygen questions) Social History Tobacco Use Types Packs/Day Years Used Date Smoking Tobacco: Former Cigarettes 1 25 1 045 - 3604 Smokeless Tobacco: Never Alcohol Use Standard Drinks/Week Comments No 0 (1 standard drink = 0.6 oz pur e alcohol) Sex and Gender Information Value Date Recorded Sex Assigned at Not on file Gender Identity Not on file Sexual Orientation Not on file documented as of this encounter Miscellaneous Notes * Telephone Encounter - Disha Wright RN - 10/04/2019 10:41 AM EST Returning pt's TC to answer his questions. Pt stated that when he saw his PCP on 09/23/2019, he was not told about the inhalers that were ordered. He would like to know why the doctor sent two different inhalers. Explained to pt that they are different formulations that open up the airways in different ways. Pt also would like to know the status of the oxygen order. Oxygen order printed and faxed to [facility] (fax #[phone]) with demographics and corresponding relevant documentation. * Telephone Encounter - Ernestine Wilder - 10/01/2019 11:36 AM EST Pt returning call and asked to get a call back . * Telephone Encounter - Khadra Banda, RN - 09/30/2019 10:50 AM EST Attempt to call patient. Left message for callback * Telephone Encounter - Sakina Waggoner - 09/30/2019 10:24 AM EST Message: Pt is calling to speak with a nurse. Pt saw Ricki Traylor MD 09/23/19 and medication was called in. Pt has questions regarding this medication, please call to discuss. Ask caller their first and last name and relationship to the patient: self Best time to call back: any Ok to leave a message: y Ok to send my- message: n Offered Appointment: n MA/Nurse/Supervisor [employer] contacted via: Message: y Call: y Pager: n documented in this encounter Plan of Treatment Upcoming Encounters Date Type Department Care Team (Late st Contact Info) Description 08/31/2024 10:00 AM EST Hospital Encounter Non-Invasive [place] [address] Arrived documented as of this encounter Visit Diagnoses Not on filedocumented in this encounter Care Teams Inspector Fabric Relationship Specialty Start Date End Date Ricki Traylor MD [facility] GENER[facility] [place] [address] PCP - General General Internal Medicine 05/30/1710/09 documented as of this encounter
--- OUTSIDE RECORDS SUMMARY | 2024-06-16 15:33 | XMS_ITS | Encounter Summary ---
Author Organization [facility] Address [facility] [place] [address] Care Team Providers Care Internal Controls Manager Name Role Phone Ricki Traylor MD Primary Care Provider [phone] Encounter Details Date Type Department Care Team (Late st Contact Info) Description 12/15/2019 Notes Only Cardiology at [address] [phone] Trenton Rutledge MD [facility] [place] [address] Social History Tobacco Use Types Packs/Day Years Used Date Smoking Tobacco: Former Cigarettes 1 1 955 - 6627 Smokeless Tobacco: Never Alcohol Use Standard Drinks/Week Comments No 0 (1 standard drink = 0.6 oz pur e alcohol) Sex and Gender Information Value Date Recorded Sex Assigned at Not on file Gender Identity Not on file Sexual Orientation Not on file documented as of this encounter Progress Notes * Trenton Rutledge MD - 12/15/2019 11:23 AM EDT [facility] DDD PPM remote reviewed. Normal device function. NSVT. documented in this encounter Plan of Treatment Upcoming Encounters Date Type Department Care Team (Late st Contact Info) Description 08/31/2024 10:00 AM EST Hospital Encounter [place] [phone] Arrived documented as of this encounter Visit Diagnoses Not on filedocumented in this encounter Care Teams Internal Controls Manager Relationship Specialty Start Date End Date Ricki Traylor MD [facility] [place] [address] PCP - General General Internal Medicine 05/30/1710/09 documented as of this encounter
--- OUTSIDE RECORDS SUMMARY | 2024-06-16 15:33 | XMS_ITS | Encounter Summary ---
[place] [address] Care Team Providers Care Canteen Manager Name Role Phone Ricki Traylor MD Primary Care Provider [phone] Reason for Visit * Reason Onset Date Comments Other 12/22/2019 Signed order emeka Munoz was sent to [facility] Encounter Details Date Type Department Care Team (Late st Contact Info) Description 12/22/2019 Telephone [place] [phone] Jessy Bobby RN Other (Signed order from Dr. Munoz was sent to [facility]) Social History Tobacco Use Types Packs/Day Years Used Date Smoking Tobacco: Former Cigarettes 1 25 1 955 - 1519 Smokeless Tobacco: Never Alcohol Use Standard Drinks/Week Comments No 0 (1 standard drink = 0.6 oz pur e alcohol) Sex and Gender Information Value Date Recorded Sex Assigned at Not on file Gender Identity Not on file Sexual Orientation Not on file documented as of this encounter Miscellaneous Notes * Telephone Encounter - Jessy Bobby RN - 12/22/2019 11:47 AM EDT Faxed order for oxygen renewal prescription/letter of medical necessity was signed by Dr. Munoz and was faxed back to [facility] on 12/21/19 at 5814 for the oxygen concentrator and stationary compressed gas ox sys; rental. Scan original to patient's chart. documented in this encounter Plan of Treatment Upcoming Encounters Date Type Department Care Team (Late st Contact Info) Description 08/31/2024 10:00 AM EST Hospital Encounter Non-Invasive [place] [address] Arrived documented as of this encounter Visit Diagnoses Not on filedocumented in this encounter Care Teams Canteen Manager Relationship Specialty Start Date End Date Ricki Traylor MD [facility] [place] [address] PCP - General General Internal Medicine 05/30/1710/09 documented as of this encounter
--- OUTSIDE RECORDS SUMMARY | 2024-06-16 15:33 | XMS_ITS | Encounter Summary ---
Author Organization [facility] [place] [address] Care Team Providers Care Private Household Worker Name Role Phone Ricki Traylor MD Primary Care Provider [phone] Encounter Details Date Type Department Care Team (Late st Contact Info) Description 09/23/2019 Orders [place] [phone] Owen Munoz MD [facility] [place] [address] COPD, very severe Social History Tobacco Use Types Packs/Day Years Used Date Smoking Tobacco: Former Cigarettes 1 25 1 955 - 3494 Smokeless Tobacco: Never Alcohol Use Standard Drinks/Week [...] AM EST Hospital Encounter Non-[place] [phone] Arrived documented as of this encounter Results * Pulmonary Function Testing [...] severe Chronic airway obstruction, not elsewhere classified COPD, very severe Chronic airway obstruction, not elsewhere classified documented in this encounter Care Teams Private Household Worker Relationship Specialty Start Date End Date Ricki Traylor MD [facility] GENERAL [place] [address] PCP - General General Internal Medicine 05/30/1710/09 documented as of this encounter
--- OUTSIDE RECORDS SUMMARY | 2024-06-16 15:33 | XMS_ITS | Encounter Summary ---
[place] [address] Care Team Providers Care Associate Software Developer Name Role Phone Ricki Traylor MD Primary Care Provider [phone] Encounter Details Date Type Department Care Team (Late st Contact Info) Description 03/15/2020 Orders Only Cardiology at [address] [phone] Social History Tobacco Use Types Packs/Day Years Used Date Smoking Tobacco: Former Cigarettes 015 8164 Smokeless Tobacco: Never Alcohol Use Standard Drinks/Week [...] AM EST Hospital Encounter Non-Invasive [place] [phone] Arrived documented as of this encounter Procedures Procedure Name Priority Date/Time Associated Diagnosis Comments CARDIAC DEVICE CHECK - REMOTE SCHEDULED Routine 03/15/2020 3:20 AM EDT documented in this encounter Results * (ABNORMAL) Cardiac device check - Remote Scheduled (03/15/2020 3:20 AM EDT) Date Time Interrogation Session IDCO Type Interrogation Session Remote Scheduled IDCO Clinic Name [facility] IDCO Battery Date Time of Measurements IDCO Battery Status Beginning of Service IDCO Battery Remaining Longevity 72 mo IDCO Battery Remaining Percentage 100 % IDCO Episode Identifier APM-22 IDCO Episode Date Time IDCO Episode Type Category Periodic EGM IDCO Episode Vendor Type Category APMRT IDCO Episode Detection And Therapy Details Presenting EGM IDCO Episode Identifier [id number] IDCO Episode Date Time IDCO Episode Type Category Other IDCO Episode Vendor Type Category IDCO Episode Duration IDCO Episode Detection And Therapy Details RA Auto IDCO Episode Identifier [id number] IDCO Episode Date Time IDCO Episode Type Category Other IDCO Episode Vendor Type Category IDCO Episode Duration IDCO Episode Detection And Therapy Details RV Auto IDCO Episode Identifier ATR-9 IDCO Episode Date Time IDCO Episode Type Category AT/AF IDCO Episode Vendor Type Category ATR IDCO Episode Detection Interval Atrial 938 ms IDCO Episode Duration 1 s IDCO Episode Detection And Therapy Details ATR Avg V Rate in ATR: 68 bpm IDCO Episode Statistic Type Category VT IDCO Episode Statistic Vendor Type Category IDCO Episode Statistic Recent Count 0 IDCO Episode Statistic Recent Date Time Start 20190915 IDCO Episode Statistic Recent Date Time End 20200315 IDCO Episode Statistic Type Category SVT IDCO Episode Statistic Vendor Type Category SVT IDCO Episode Statistic Recent Count 0 IDCO Episode Statistic Recent Date Time Start 20190915 IDCO Episode Statistic Recent Date Time End 20200315 IDCO Episode Statistic Type Category VT IDCO Episode Statistic Vendor Type Category NSVT IDCO Episode Statistic Recent Count 1 IDCO Episode Statistic Recent Date Time Start 20190915 IDCO Episode Statistic Recent Date Time End 20200315 IDCO Episode Statistic Type Category AT/AF IDCO Episode Statistic Vendor Type Category ATR IDCO Episode Statistic Recent Count 2 IDCO Episode Statistic Recent Date Time Start 20190915 IDCO Episode Statistic Recent Date Time End 20200315 IDCO Episode Statistic Type Category Other IDCO Episode Statistic Vendor Type Category IDCO Episode Statistic Recent Count 0 IDCO Episode Statistic Recent Date Time Start 20190915 IDCO Episode Statistic Recent Date Time End 20200315 IDCO Zeferino Setting AT Mode Switch Mode [...] L311 IDCO Implantable Pulse Generator Serial Number [id number] IDCO Implantable Pulse Generator Twine Reeling Machine Operator [employer] IDCO Implantable Pulse Generator Implant Date 20170108 IDCO Implantable Lead Model 7741 IDCO Implantable Lead Serial Number [id number] IDCO Implantable Lead Twine Reeling Machine Operator [employer] IDCO Implantable Lead Implant Date IDCO Implantable Lead Polarity Type Bipolar Lead IDCO Implantable Lead Location Right Atrium IDCO Implantable Lead Model [id number] IDCO Implantable Lead Serial Number [id number] IDCO Implantable Lead Twine Reeling Machine Operator [employer] IDCO Implantable Lead Implant Date IDCO Implantable Lead Polarity Type Bipolar Lead IDCO Implantable Lead Location Right Ventricle IDCO Lead Channel Measurements Date and Time Start 20200313 IDCO Lead Channel Sensing Intrinsic Amplitude Mean 2.4 mV IDCO Lead Channel Sensing Polarity Bipolar IDCO Lead Channel Pacing Threshold Amplitude 0.7 V IDCO Lead Channel Pacing Threshold Pulse Width 0.4 ms IDCO Lead Channel Pacing Threshold Measurement Method Device Automatic IDCO Lead Channel Pacing Threshold Polarity Bipolar IDCO Lead Channel Impedance Value 507 ohms IDCO Lead Channel Impedance Polarity Bipolar IDCO Lead Channel Measurements Date and Time Start 20200313 IDCO Lead Channel Sensing Intrinsic Amplitude Mean 25.0(>) mV IDCO Lead Channel Sensing Polarity Bipolar IDCO Lead Channel Pacing Threshold Amplitude 1.2 V IDCO Lead Channel Pacing Threshold Pulse Width 0.4 ms IDCO Lead Channel Pacing Threshold Measurement Method Device Automatic IDCO Lead Channel Pacing Threshold Polarity Bipolar IDCO Lead Channel Impedance Value 739 ohms IDCO Lead Channel Impedance Polarity Bipolar IDCO Statistic Date Time Start 20190915 IDCO Statistic Date Time End 20200315 IDCO Zeferino Statistic Date Time Start 20190915 IDCO Zeferino Statistic Date Time End 20200315 IDCO Zeferino Statistic RA Percent Paced 41 % IDCO Zeferino Statistic RV Percent Paced 0 % IDCO Atrial Tachy Statistic Date Time Start 20190917 IDCO Atrial Tachy Statistic Date Time End 20200314 IDCO Atrial Tachy Statistic AT/AF [place] Percent 1(<) % IDCO Anatomical Region Laterality Modality Other 03/15/2020 3:20 AM EDT Physician Cardiology IMPLANTABLE CARD IAC DEVICE documented in this encounter Visit Diagnoses Not on filedocumented in this encounter Care Teams Associate Software Developer Relationship Specialty Start Date End Date Ricki Traylor MD [facility] [place] [address] PCP - General General Internal Medicine 05/30/1710/09 documented as of this encounter
--- OUTSIDE RECORDS SUMMARY | 2024-06-16 15:33 | XMS_ITS | Encounter Summary ---
Author Organization Count Includes [facility] Address [facility] [place] [address] Care Team Providers Care Baggage Security Checker Name Role Phone Ricki Traylor MD Primary Care Provider [phone] Encounter Details Date Type Department Care Team (Late st Contact Info) Description 10/15/2019 Telephone [place] [phone] Ernestine Day Social History Tobacco Use Types Packs/Day Years Used Date Smoking Tobacco: Former Cigarettes 5 - 1979 Smokeless Tobacco: Never Alcohol Use [...] AM EST Hospital Encounter Non-[place]vasive [place] [phone] Arrived documented as of this encounter Visit Diagnoses Not on filedocumented in this encounter Care Teams Baggage Security Checker Relationship Specialty Start Date End Date Ricki Traylor MD [facility] [place] [address] PCP - General General Internal Medicine 05/30/1710/09 documented as of this encounter
--- OUTSIDE RECORDS SUMMARY | 2024-06-16 15:33 | XMS_ITS | Encounter Summary ---
[place] [address] Care Team Providers Care Ham Trimmer Name Role Phone Ricki Traylor MD Primary Care Provider [phone] Encounter Details Date Type Department Care Team (Late st Contact Info) Description 12/15/2019 Orders Only Cardiology at [address] [phone] Social History Tobacco Use Types Packs/Day Years Used Date Smoking Tobacco: Former Cigarettes 675 9160 Smokeless Tobacco: Never Alcohol Use Standard Drinks/Week [...] AM EST Hospital Encounter Non-[place] [phone] Arrived documented as of this encounter Procedures Procedure Name Priority Date/Time Associated Diagnosis Comments CARDIAC DEVICE CHECK - REMOTE SCHEDULED Routine 12/15/2019 3:21 AM EDT documented in this encounter Results * (ABNORMAL) Cardiac device check - Remote Scheduled (12/15/2019 3:21 AM EDT) Date Time Interrogation Session IDCO Type Interrogation Session Remote Scheduled IDCO Clinic Name [facility] IDCO Battery Date Time of Measurements IDCO Battery Status Beginning of Service IDCO Battery Remaining Longevity 72 mo IDCO Battery Remaining Percentage 100 % IDCO Episode Identifier APM-21 IDCO Episode Date Time IDCO Episode Type Category Periodic EGM IDCO Episode Vendor Type Category APMRT IDCO Episode Detection And Therapy Details Presenting EGM IDCO Episode Identifier ATR-8 IDCO Episode Date Time IDCO Episode Type Category AT/AF IDCO Episode Vendor Type Category ATR IDCO Episode Detection Interval Atrial 800 ms IDCO Episode Duration 1 s IDCO Episode Detection And Therapy Details ATR Avg V Rate in ATR: 75 bpm IDCO Episode Identifier [id number] IDCO Episode Date Time IDCO Episode Type Category Other IDCO Episode Vendor Type Category IDCO Episode Duration IDCO Episode Detection And Therapy Details RA Auto IDCO Episode Identifier [id number] IDCO Episode Date Time IDCO Episode Type Category Other IDCO Episode Vendor Type Category IDCO Episode Duration IDCO Episode Detection And Therapy Details RV Auto IDCO Episode Identifier V-3 IDCO Episode Date Time IDCO Episode Type Category VT IDCO Episode Vendor Type Category NSVT IDCO Episode Type Induced Flag NO IDCO Episode Detection Interval Ventricular 370 ms IDCO Episode Duration 20 s IDCO Episode Detection And Therapy Details NonSustV IDCO Episode Statistic Type Category VT IDCO Episode Statistic Vendor Type Category IDCO Episode Statistic Recent Count 0 IDCO Episode Statistic Recent Date Time Start 20190915 IDCO Episode Statistic Recent Date Time End 20191215 IDCO Episode Statistic Type Category SVT IDCO Episode Statistic Vendor Type Category SVT IDCO Episode Statistic Recent Count 0 IDCO Episode Statistic Recent Date Time Start 20190915 IDCO Episode Statistic Recent Date Time End 20191215 IDCO Episode Statistic Type Category VT IDCO Episode Statistic Vendor Type Category NSVT IDCO Episode Statistic Recent Count 1 IDCO Episode Statistic Recent Date Time Start 20190915 IDCO Episode Statistic Recent Date Time End 20191215 IDCO Episode Statistic Type Category AT/AF IDCO Episode Statistic Vendor Type Category ATR IDCO Episode Statistic Recent Count 1 IDCO Episode Statistic Recent Date Time Start 20190915 IDCO Episode Statistic Recent Date Time End 20191215 IDCO Episode Statistic Type Category Other IDCO Episode Statistic Vendor Type Category IDCO Episode Statistic Recent Count 0 IDCO Episode Statistic Recent Date Time Start 20190915 IDCO Episode Statistic Recent Date Time End 20191215 IDCO Zeferino Setting AT Mode Switch Mode [...] L311 IDCO Implantable Pulse Generator Serial Number [id number] IDCO Implantable Pulse Generator Drum Sprayer [employer] IDCO Implantable Pulse Generator Implant Date 20170108 IDCO Implantable Lead Model 7741 IDCO Implantable Lead Serial Number [id number] IDCO Implantable Lead Drum Sprayer [employer] IDCO Implantable Lead Implant Date IDCO Implantable Lead Polarity Type Bipolar Lead IDCO Implantable Lead Location Right Atrium IDCO Implantable Lead Model [id number] IDCO Implantable Lead Serial Number [id number] IDCO Implantable Lead Drum Sprayer [employer] IDCO Implantable Lead Implant Date IDCO Implantable Lead Polarity Type Bipolar Lead IDCO Implantable Lead Location Right Ventricle IDCO Lead Channel Measurements Date and Time Start 20191213 IDCO Lead Channel Sensing Intrinsic Amplitude Mean 4.3 mV IDCO Lead Channel Sensing Polarity Bipolar IDCO Lead Channel Pacing Threshold Amplitude 0.6 V IDCO Lead Channel Pacing Threshold Pulse Width 0.4 ms IDCO Lead Channel Pacing Threshold Measurement Method Device Automatic IDCO Lead Channel Pacing Threshold Polarity Bipolar IDCO Lead Channel Impedance Value 678 ohms IDCO Lead Channel Impedance Polarity Bipolar IDCO Lead Channel Measurements Date and Time Start 20191213 IDCO Lead Channel Sensing Intrinsic Amplitude Mean 25.0(>) mV IDCO Lead Channel Sensing Polarity Bipolar IDCO Lead Channel Pacing Threshold Amplitude 1.1 V IDCO Lead Channel Pacing Threshold Pulse Width 0.4 ms IDCO Lead Channel Pacing Threshold Measurement Method Device Automatic IDCO Lead Channel Pacing Threshold Polarity Bipolar IDCO Lead Channel Impedance Value 734 ohms IDCO Lead Channel Impedance Polarity Bipolar IDCO Statistic Date Time Start 20190915 IDCO Statistic Date Time End 20191215 IDCO Zeferino Statistic Date Time Start 20190915 IDCO Zeferino Statistic Date Time End 20191215 IDCO Zeferino Statistic RA Percent Paced 36 % IDCO Zeferino Statistic RV Percent Paced 0 % IDCO Atrial Tachy Statistic Date Time Start 20190917 IDCO Atrial Tachy Statistic Date Time End 20191214 IDCO Atrial Tachy Statistic AT/AF [place] Percent 0 % IDCO Anatomical Region Laterality Modality Other 12/15/2019 3:21 AM EDT Physician Cardiology IMPLANTABLE CARD IAC DEVICE documented in this encounter Visit Diagnoses Not on filedocumented in this encounter Care Teams Ham Trimmer Relationship Specialty Start Date End Date Ricki Traylor MD [facility] GENER[place] [address] PCP - General General Internal Medicine 05/30/1710/09 documented as of this encounter
--- OUTSIDE RECORDS SUMMARY | 2024-06-16 15:33 | XMS_ITS | Encounter Summary ---
Author Organization Formerly [facility] [place] [address] Care Team Providers Care Noodle Maker Name Role Phone Ricki Traylor MD Primary Care Provider [phone] Encounter Details Date Type Department Care Team (Latest Contact Info) Description 09/23/2019 Unscheduled [place] [phone] Owen Munoz MD [facility] [place] [address] COPD, very severe; COPD, severe; Ex-smoker; MINOR (dyspnea on exertion); Chronic restrictive lung disease Social History Tobacco Use Types Packs/Day Years Used Date Smoking Tobacco: Former Cigarettes 1 25 1 495 - 6651 Smokeless Tobacco: Never Alcohol Use Standard Drinks/Week Comments No 0 (1 standard drink = 0.6 oz pur e alcohol) Sex and Gender Information Value Date Recorded Sex Assigned at Not on file Gender Identity Not on file Sexual Orientation Not on file documented as of this encounter Progress Notes * Owen Munoz MD - 09/23/2019 4:42 PM EST Images from the original note were not included. [facility] Section of Pulmonary Medicine Outpatient Consultation Date of Encounter: 09/23/2019 PCP: Ricki Traylor MD [facility] [place] [address] Reason for Consult: I was asked to briefly evaluate this patient during his office visit with Dr. Traylor. HPI: Mr. Álvarez is a 78-year-old man with a significant cardiac history as detailed below. Despite optimization of his cardiac conditions he has significant dyspnea on exertion and a cough productive of sputum on a daily basis. He cannot really quantify exactly how much because he often swallows sputum but I get the sense is probably a couple of tablespoons each day and is largely clear although can bethick at times. He is short of breath walking 100 feet or so on the flat, even more so climbing stairs or walking up an incline. He uses oxygen at night but does not currently use oxygen on exertion. I reviewed his previous PFTs, his PFTs today and his most recent chest imaging. Review of Systems: Weight stable, minimal ankle edema, no exertional chest pain, no hemoptysis Past Medical History: Past Medical History: Diagnosis [...] PROSTATECTOMY ??? RETINAL DETACHMENT SURGERY 2014 OD Medications: Current Outpatient Medications Medication Sig Dispense Refill ??? atorvastatin (Lipitor) 40 mg Tablet Take 1 tablet by mouth every evening. 90 tablet 3 ??? clopidogreL (Plavix) 75 mg Tablet Take 1 tablet by mouth daily. 90 tablet 3 ??? metoprolol tartrate (Lopressor) 50 mg Tablet Take 1 tablet by mouth 2 times daily. 180 tablet 3 ??? tiotropium-olodateroL (Stiolto Respimat) 2.5-2.5 mcg/actuation Mist Inhale 2 puffs into the lungs 2 times daily. 4 g 3 ??? albuterol 90 mcg/actuation HFA Aerosol Inhaler Inhale 2 puffs into the lungs every 4 hours as needed for Wheezing. Use with spacer 1 Inhaler 1 ??? furosemide (Lasix) 20 mg Tablet Take 1 tablet by mouth daily. 90 tablet 3 ??? lisinopriL (Prinivil;Zestril) 2.5 mg Tablet Take 1 tablet by mouth daily. 90 tablet 3 ??? triamcinolone (KENALOG) 0.1 % Ointment Use 2 times daily to lower extremities for 1 week, take a week off, repeat cycle if needed. 454 g 0 No current facility-administered medications for this visit. Allergies: Patient has no known allergies. Social History: Social History Tobacco Use ??? Smoking status: Former Smoker Packs/day: 1.00 Years: 25.00 Pack years: 25.00 Types: Cigarettes Last attempt to quit: 1980 Years since quittin.1 ??? Smokeless tobacco: Never Used Substance Use Topics ??? Alcohol use: No ??? Drug use: No Family History: Family History Problem Relation Age of Onset ??? Hypertension Father ??? Heart Disease Father ??? Diabetes Father ??? Cerebrovascular Accident Father ??? Cataracts Father ??? Macular Degeneration Father ??? Heart Failure Mother ??? Hypertension Mother ??? Skin Cancer Neg Hx ??? Cancer Neg Hx ??? Glaucoma Neg Hx ??? Retinal Detachment Neg Hx ??? Strabismus Neg Hx ??? Thyroid Disease Neg Hx Immunizations: Immunization History Administered Date(s) Administered ??? Influenza PF, Split (High Dose) 05/20/2017, 07/01/2019 ??? Pneumococcal Conjugate (13 Valent) 09/13/2015 ??? Pneumococcal Polyvalent 23 12/19/2008 ??? Tdap Vaccine 06/26/2017 Examination: Vitals 09/23/2019 BP 99/56 Patient Position Sitting Pulse 59 Temp 97.4 Temp src Oral Resp 16 Height to cm. 173.5 cm Height in inches 5' 8.307 Weight (Finnish) 201 lbs Weight (Metric) 91.2 kg BMI (Calculated) 30.28 BSA (Calculated - sq m) 2.1 SpO2 98 General: Comfortable at rest HEENT: No cervical lymphadenopathy, no oral thrush Resp: Chest expansion equal Basal crackles Skin: No rash Extremities: No clubbing, no cyanosis, trace edema while wearing compression stockings, calves softand non tender Neurologic: No obvious cranial nerve palsy or limb weakness, normal gait Psych: Normal mood and affect Labs: Lab Results Component Value Date WBC 6.0 06/26/2017 HGB 14.4 06/26/2017 HCT 45.1 06/26/2017 PLATELET 119 (L) 06/26/2017 Imaging: Available CXR and CT Chest images were viewed personally and reports were reviewed. I agree with the radiology reads. Results for orders placed during the hospital encounter of 05/18/17 XR Chest PA & Lateral (Generic) Narrative EXAMINATION: XR CHEST PA AND LATERAL (GENERIC) CLINICAL HISTORY: jaw pain, chest pain TECHNIQUE: AP and lateral sitting semiupright chest radiograph; 2 views COMPARISON: None FINDINGS: Left anterior chest wall pulse generator leads terminate in the regions of the atrium and right ventricle. No focal kink or discontinuity. Surgical clips are seen throughout the mediastinum. Additional hardware is seen within the right lateral aspects of the C6 and C7 vertebra. Low lung volumes. Linear subsegmental atelectasis. Prominence of the pulmonary vasculature favored to be related to technique and degree of lung inflation. No focal consolidation, pneumothorax or pleural effusion. Cardiac silhouette normal limits. Tortuous thoracic aorta. Impression Low lung volumes with subsegmental atelectasis. Pulmonary Function Tests: 2016 2019 Oxygen saturation 93% on RA at rest and required 2 L/min of supplemental oxygen to keep sats > 88% during a 600 feet walk. Assessment: Romaine seems to have severe combined obstructive and restrictive disease. He is an ex-smoker Viri think there are some element of COPD here. His restrictive disease may in part be due to his previous heart surgery and changes in his rib cage and a little due to his body habitus with some central obesity. However, I am concerned about the possibility of concomitant interstitial lung disease and I think a CT scan will be helpful to try and define exactly which pathologies he has. I think he would benefit from portable oxygen for exertion which may help decrease his dyspnea and improve his ability to do ADLs and walk moderate distances. Long-acting bronchodilators may also improve his symptom of exertional dyspnea and help with cough and sputum production. Plan: ?? Stiolto 2 puffs daily -patient was instructed in the correct use of inhaler today ?? Noncontrast CT of the chest ?? Portable oxygen as detailed above ?? I will coordinate follow-up with Dr. Traylor following the CT scan of the chest Owen Munoz MD Pulmonary and Critical Care Medicine Pager #[phone] * Radha Yaneth A, RT - 09/23/2019 4:42 PM EST Home Oxygen Evaluation for Vikash Álvarez Resting SpO2 on room air: 93% HR: 60 Walked 350 feet on room air, SpO2: 87-88 HR: 75, stopped continued to desaturate to 85% Placed on O2 at 2 lpm: Resting SpO2 on 2 lpm O2: 98% HR: 60 Walked 400 feet on 2 lpm O2, SpO2: 92% HR: 67 Changed to pulse dose: Resting SpO2 on 2 pulse dose O2: 96% HR: 60* Walked 350 feet on 2 pulse dose O2, SpO2: 94% HR: 73, decreased to 89% < 30 seconds during recovery. Vikash Álvarez Currently has a home oxygen concentrator through [facility] , he is utilizing O2 at 2 lpm at night. In the past he has refillable tanks - he sent them back. Currently he doesn't have a portable oxygen system and he is interested in a portable oxygen concentrator to provide 2 pulse dose. HOme exercise: He noted that he has resumed going to the local indoor pool and is able to walk in place for up to 30 minutes with water up to his waist level ( any higher , he notes increased dyspnea). He shared when he walks out of the pool he has severe dyspnea. Discussed options for utilizing oxygen when exercising. MDI/DPI instruction for Vikash Álvarez: Inspiratory Flows Resistance via Incheck dial Peak Inspiratory Flow Rate in LPM Low resistance ( MDI/Respimat): 1) 85 2) 35 3) 55 -Respimat: Instructed in assembly, priming and technique: Vikash Álvarez Able to demonstrate ability to assemble, prime and proper technique of Respimat, Inspiratory flow after instruction: 55 lpm, medium fast deep breath in with 8-10 second breath hold. Reviewed order of inhalers: -Stiolto respimat 2 puffs once a day documented in this encounter Plan of Treatment Upcoming Encounters Date Type Department Care Team (Late st Contact Info) Description 08/31/2024 10:00 AM EST Hospital Encounter [place] [address] Arrived documented as of this encounter Visit Diagnoses Diagnosis COPD, very severe Chronic airway obstruction, not elsewhere classified COPD, severe Chronic airway obstruction, not elsewhere classified Ex-smoker Personal history of tobacco use, presenting hazards to health MINOR (dyspnea on exertion) Other dyspnea and respiratory abnormality Chronic restrictive lung disease Other diseases of lung, not elsewhere classified documented in this encounter Care Teams Noodle Maker Relationship Specialty Start Date End Date Ricki Traylor MD [facility] GENERAL [place] [address] PCP - General General Internal Medicine 05/30/1710/09 documented as of this encounter
--- OUTSIDE RECORDS SUMMARY | 2024-06-16 15:33 | XMS_ITS | Encounter Summary ---
Author Organization [facility] [place] [address] Care Team Providers Care Surface Grinding Machine Hand Name Role Phone Ricki Traylor MD Primary Care Provider [phone] Encounter Details Date Type Department Care Team (Late st Contact Info) Description 05/11/2019 External Results Cardiology at [address] [phone] Unknown None Social History Tobacco Use Types Packs/Day Years Used Date Smoking Tobacco: Former Cigarettes 1 04 09 245 - 8291 Smokeless Tobacco: Never Alcohol Use Standard Drinks/Week [...] AM EST Hospital Encounter Non-Invasive [place] [phone] Arrived documented as of this encounter Procedures Procedure Name Priority Date/Time Associated Diagnosis Comments EP DEVICE SCAN Routine 02/24/2019 documented in this encounter Results * Scan Doc: EP Device (02/24/2019) Anatomical Region Laterality Modality Other Unknown MEDIA MGR SCAN EXT O RDR/RSLT documented in this encounter Visit Diagnoses Not on filedocumented in this encounter Care Teams Surface Grinding Machine Hand Relationship Specialty Start Date End Date Ricki Traylor MD [facility] [place] [address] PCP - General General Internal Medicine 05/30/1710/09 documented as of this encounter
--- OUTSIDE RECORDS SUMMARY | 2024-06-16 15:33 | XMS_ITS | Encounter Summary ---
Author Organization Formerly [facility] Address [facility] [place] [address] Care Team Providers Care Medical Customer Service Representative Name Role Phone Ricki Traylor MD Primary Care Provider [phone] Encounter Details Date Type Department Care Team (Late st Contact Info) Description 09/15/2019 10:40 AM EST Office Visit Cardiology at [address] [phone] Juan Jose Mills MD [facility] [place] [address] Conduction system disease---- has [employer] pacer.; Coronary arteriosclerosis; Aortic valve disease--- TAVR December 2016 Social History Tobacco Use Types Packs/Day Years Used Date Smoking Tobacco: Former Cigarettes 1 25 1 664 - 3797 Smokeless Tobacco: Never Alcohol Use Standard Drinks/Week Comments No 0 (1 standard drink = 0.6 oz pur e alcohol) Sex and Gender Information Value Date Recorded Sex Assigned at Not on file Gender Identity Not on file Sexual Orientation Not on file documented as of this encounter Last Filed Vital Signs Vital Sign Reading Time Taken Comments Blood Pressure 104/55 09/15/2019 10:12 AM EST Pulse 58 09/15/2019 10:12 AM EST Temperature - - Respiratory Rate - - Oxygen Saturation 98% 09/15/2019 10:12 AM EST Inhaled Oxygen Concentration - - Weight 92.5 kg (204 lb) 09/15/2019 10:12 AM EST Height 172.7 cm (5' 8) 09/15/2019 10:12 AM EST Body Mass Index 31.02 09/15/2019 10:12 AM EST documented in this encounter Patient Instructions * Patient Instructions* uJan Jose Mills MD - 09/15/2019 10:40 AM EST ?? Stop aspirin but continue clopidogrel ?? Reduce lisinopril to 2.5 mg daily documented in this encounter Progress Notes * Juan Jose Mills MD - 09/15/2019 10:40 AM EST Images from the original note were not included. CARDIOVASCULAR MEDICINE [place] [address] Subjective: Identification Vikash Álvarez is a 78 y.o. patient of Ricki Traylor MD with the following cardiovascular issues: 1. Coronary disease ?? 4v CABG in 1994 ?? PCI of SVG in 2013 ?? redo PCI due to ISR in May 2017 2. Aortic valve disease--- TAVR in December 2016 done at [facility] 3. 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 COPD on nocturnal O2 (FEV1 < 40%), ?? prostate cancer treated with prostectomy Social and family history reviewed. Lives with his in [facility]. 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 Enjoys [employer]. No flowsheet data found. Present Illness Last seen May 2018. Last device check today showed 45% VPs. Trivial AHR episodes. Has done well. Feels 100% better than 2 years ago. No angina. Has limited exercise tolerance due to dyspnea. Has seenDr. Merino. Did not find pulmonary rehab that rewarding as he did more at home. Enjoying hunting. Bleeds very easily from his nose. Has remained on DAPT. Going to the pool 3 times per week. Medications Current Outpatient Medications: ??? lisinopriL (Prinivil;Zestril) 2.5 mg Tablet, Take 1 tablet by mouth daily., Disp: 90 tablet, Rfl: 3 ??? atorvastatin (LIPITOR) 40 mg Tablet, Take 1 tablet by mouth every evening., Disp: 90 tablet, Rfl: 0 ??? clopidogrel (PLAVIX) 75 mg Tablet, Take 1 tablet by mouth daily., Disp: 90 tablet, Rfl: 0 ??? metoprolol tartrate (LOPRESSOR) 50 mg Tablet, Take 1 tablet by mouth 2 times daily., Disp: 180 tablet, Rfl: 0 ??? furosemide (LASIX) 20 mg Tablet, TAKE 1 TABLET BY MOUTH DAILY, Disp: 90 tablet, Rfl: 0 ??? triamcinolone (KENALOG) 0.1 % Ointment, Use 2 times daily to lower extremities for 1 week, takea week off, repeat cycle if needed., Disp: 454 g, Rfl: 0 Objective: Physical Exam BP 104/55 Pulse 58 Ht 172.7 cm (5' 8) Wt 92.5 kg (204 lb) SpO2 98% BMI 31.02 kg/m?? , Body mass index is 31.02 kg/m??. General: Pleasant. No distress. Skin: Warm and dry. HEENT: No jaundice. Neck: JVP not elevated. No AJR. No carotid bruits. Chest: Diminished bs Heart: No RV heave. Regularly regular rhythm. Normal S1 and S2. No murmurs or gallops. Abdomen:Nondistended. Soft. Nontender. Ext: No edema. RESEARCH EPIDEMIOLOGIST: Normal mentation. Psych: Appropriate affect. Labs Lab Results Component Value Date NA 141 06/26/2017 K 4.9 06/26/2017 CL 99 06/26/2017 CO2 32 (H) 06/26/2017 BUN 26 (H) 06/26/2017 CREATININE 1.10 06/26/2017 CHLPL 139 06/26/2017 HDL 46 06/26/2017 CHOLHDL 3.0 06/26/2017 Assessment and Plan 1. Conduction system disease---- has [employer] pacer. Doing well. 2. Coronary arteriosclerosis Free of angina Will stop aspirin and continue clopidogrel monotherapy---see reference below Will also reduce dose of lisinopril to 2.5 mg once daily 3. Aortic valve disease--- TAVR December 2016 Functioning well.?? Return in about 1 year (around 09/15/2020) for Coronary disease follow up, Valve follow up. Juan Jose Mills MD [facility] Reference Juan Miguel EL,SMART-CHOICE Investigators??. Effect of P2Y12 Inhibitor Monotherapy vs Dual Antiplatelet Therapy on Cardiovascular Events in Patients Undergoing Percutaneous Coronary Intervention: The SMART-CHOICE Randomized Clinical Trial. JAY. 2019;321(57):2424. cc: ?? Ricki Traylor MD [facility] GENERAL INTERNAL MEDICINE / [place]* documented in this encounter Plan of Treatment Upcoming Encounters Date Type Department Care Team (Late st Contact Info) Description 08/31/2024 10:00 AM EST Hospital Encounter Non-[place] [address] Arrived documented as of this encounter Visit Diagnoses Diagnosis Conduction system disease---- has [employer] pacer. Cardiac pacemaker in situ Coronary arteriosclerosis Coronary atherosclerosis of unspecified type of vessel, [place] or graft Aortic valve disease--- TAVR December 2016 Aortic valve disorders documented in this encounter Care Teams Medical Customer Service Representative Relationship Specialty Start Date End Date Ricki Traylor MD [facility] [place] [address] PCP - General General Internal Medicine 05/30/1710/09 documented as of this encounter
--- OUTSIDE RECORDS SUMMARY | 2024-06-16 15:33 | XMS_ITS | Encounter Summary ---
Author Organization Formerly [facility] Address [facility] [place] [address] Care Team Providers Care Wastewater Treatment Plant Chemist Name Role Phone Ricki Traylor MD Primary Care Provider Encounter Details Date Type Department Care Team (Late st Contact Info) Description 01/12/2019 Telephone Dermatology at [facility] [address] [place] [address] Cary Pandey MD [facility] [address] [place] [address] Social History Tobacco Use Types Packs/Day Years Used Date Smoking Tobacco: Former Cigarettes 1 25 1 525 - 2088 Smokeless Tobacco: Never Alcohol Use Standard Drinks/Week Comments No 0 (1 standard drink = 0.6 oz pur e alcohol) Sex and Gender Information Value Date Recorded Sex Assigned at Not on file Gender Identity Not on file Sexual Orientation Not on file documented as of this encounter Miscellaneous Notes * Telephone Encounter - Ernestine Caldwell - 01/12/2019 3:58 PM EDT Spoke with patient, appointment rescheduled for February 01 at 4:[address] Pandey. Patient was agreeable to this and requested to be on the waiting list. I did this for him high priority and we will try to get him a sooner appointment. Ernestine Caldwell, Clinical [place] documented in this encounter Plan of Treatment Upcoming Encounters Date Type Department Care Team (Late st Contact Info) Description 08/31/2024 10:00 AM EST Hospital Encounter Non-[place] [address] Arrived documented as of this encounter Visit Diagnoses Not on filedocumented in this encounter Care Teams Wastewater Treatment Plant Chemist Relationship Specialty Start Date End Date Ricki Traylor MD [facility] [place] [address] PCP - General General Internal Medicine 05/30/1710/09 documented as of this encounter
--- OUTSIDE RECORDS SUMMARY | 2024-06-16 15:33 | XMS_ITS | Encounter Summary ---
Author Organization [facility] Address [facility] [place] [address] Care Team Providers Care Outreach Team Member Name Role Phone Ricki Traylor MD Primary Care Provider [phone] Encounter Details Date Type Department Care Team (Late st Contact Info) Description 05/20/2019 Telephone Dermatology at [facility] [address] [place] [address] Call, Jaylan Sawyer MD [facility] [address] [place] [address] Social History Tobacco Use Types Packs/Day Years Used Date Smoking Tobacco: Former Cigarettes 1 25 1 955 - 3767 Smokeless Tobacco: Never Alcohol Use Standard Drinks/Week Comments No 0 (1 standard drink = 0.6 oz pur e alcohol) Sex and Gender Information Value Date Recorded Sex Assigned at Not on file Gender Identity Not on file Sexual Orientation Not on file documented as of this encounter Miscellaneous Notes * Telephone Encounter - CallJaylan - 05/20/2019 5:20 PM EDT Called patient to discuss the following biopsy results: Surgical Pathology DIAGNOSIS Skin, central superior chest, shave biopsy: - Invasive squamous cell carcinoma, well differentiated, 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 ED&C. We discussed excision but the patient stated that he has a long history of cardiac problems including valve transplants, stents and would not like to undergo excision. After reviewing various treatment options, joint decision to treat with ED&C Instructed patient that he will be contacted by se terrell for further scheduling. Otherwise, patient states that the biopsy site is healing well. Instructed to continue with follow up in 2-4 weeks for ED&C and to call with any questions or concerns. documented in this encounter Plan of Treatment Upcoming Encounters Date Type Department Care Team (Late st Contact Info) Description 08/31/2024 10:00 AM EST Hospital Encounter Non-Invasive [place] [address] Arrived documented as of this encounter Visit Diagnoses Not on filedocumented in this encounter Care Teams Outreach Team Member Relationship Specialty Start Date End Date Ricki Traylor MD [facility] GENERAL [place] [address] PCP - General General Internal Medicine 05/30/1710/09 documented as of this encounter
--- OUTSIDE RECORDS SUMMARY | 2024-06-16 15:33 | XMS_ITS | Encounter Summary ---
Author Organization [facility] Address [facility] [place] [address] Care Team Providers Care Supervisor Drilling And Shooting Name Role Phone Ricki Traylor MD Primary Care Provider [phone] Encounter Details Date Type Department Care Team (Late st Contact Info) Description 01/07/2019 9:30 AM EDT Office [place] [phone] Ricki Merino Jr., MD [facility] [place] [address] COPD, severe Social History Tobacco Use Types Packs/Day Years Used Date Smoking Tobacco: Former Cigarettes 1 25 1 431 - 3701 Smokeless Tobacco: Never Alcohol Use Standard Drinks/Week Comments No 0 (1 standard drink = 0.6 oz pur e alcohol) Sex and Gender Information Value Date Recorded Sex Assigned at Not on file Gender Identity Not on file Sexual Orientation Not on file documented as of this encounter Last Filed Vital Signs Vital Sign Reading Time Taken Comments Blood Pressure 108/59 01/07/2019 9:32 AM EDT Pulse 62 01/07/2019 9:32 AM EDT Temperature - - Respiratory Rate 32 01/07/2019 9:32 AM EDT Oxygen Saturation 91% 01/07/2019 9:32 AM EDT Inhaled Oxygen Concentration - - Weight 93.4 kg (206 lb) 01/07/2019 9:32 AM EDT Height 172.7 cm (5' 8) 01/07/2019 9:32 AM EDT Body Mass Index 31.32 01/07/2019 9:32 AM EDT documented in this encounter Progress Notes * Ricki Merino Jr., MD - 01/07/2019 9:30 AM EDT Pulmonary Return HPI: Mr. Álvarez is a 78 y.o. male with COPD who returns for follow-up. I last saw him 11/18/2017. In the interval, he is gradually improving. Has been out turkey hunting this spring. Exercise tolerancehas improved, although he would still like to improve this further. Off of all respiratory medications (prior extensive trials did not provide him with symptomatic benefit, occasionally increases cough.) Winter was long this year, and he has not been as active as he would like. Still was able to perform indoor home-based exercises. Hoping to start water aerobics at [facility] this summer. Patient Active Problem List Diagnosis Code ??? Aortic valve disease--- TAVR December 2016 I35.9 ??? Coronary disease---hx of CABG I25.10 ??? Chronic obstructive pulmonary disease J44.9 ??? Prostate cancer--- treated with radical prostatectomy C61 ??? Hyperlipidemia E78.5 ??? 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 Vitamin D deficiency E55.9 Allergies Patient has no known allergies. Medications Current Outpatient Medications on File Prior to Visit Medication Sig Dispense Refill ??? clopidogrel (PLAVIX) 75 mg Tablet Take 1 tablet by mouth daily. 90 tablet 3 ??? furosemide (LASIX) 20 mg Tablet Take 1 tablet by mouth daily. 90 tablet 3 ??? lisinopril (PRINIVIL;ZESTRIL) 5 mg Tablet Take 1 tablet by mouth daily. 90 tablet 3 ??? metoprolol tartrate (LOPRESSOR) 50 mg Tablet Take 1 tablet by mouth 2 times daily. 180 tablet 3 ??? atorvastatin (LIPITOR) 40 mg Tablet Take 1 tablet by mouth every evening. 90 tablet 3 ??? aspirin (ASPIRIN) 81 mg Tablet, Chewable Take 81 mg by mouth daily. 30 tablet 3 No current facility-administered medications on file prior to visit. Social History Socioeconomic History ??? Marital status: Spouse name: Not on file ??? Number of children: Not on file ??? Years of education: Not on file ??? Highest education level: Not on file Occupational History ??? Not on file Social Needs ??? Financial resource strain: Not on file ??? Food insecurity: Worry: Not on file Inability: Not on file ??? Transportation needs: Medical: Not on file Non-medical: Not on file Tobacco Use ??? Smoking status: Former Smoker Packs/day: 1.00 Years: 25.00 Pack years: 25.00 Types: Cigarettes Last attempt to quit: 1980 Years since quittin.4 ??? Smokeless tobacco: Never Used Substance and Sexual Activity ??? Alcohol use: No ??? Drug use: No ??? Sexual activity: Not Currently Lifestyle ??? Physical activity: Days per week: Not on file Minutes per session: Not on file ??? Stress: Not on file Relationships ??? Social connections: Talks on phone: Not on file Gets together: Not on file Attends anabaptist service: Not on file Active member of club or organization: Not on file Attends meetings of clubs or organizations: Not on file Relationship status: Not on file ??? Intimate partner violence: Fear of current or ex partner: Not on file Emotionally abused: Not on file Physically abused: Not on file Forced sexual activity: Not on file Other Topics Concern ??? Do You live alone? Not Asked ??? Tobacco in Home Not Asked Social History Chrissy Lives with Mikal, 53 years. Moved to [place] in April 2017 to be near their daughter (Lisa) at her request. She is very helpful to them. Lisa is with an 11 year old daughter (Isha). They have another daughter, Maddy, recently divorces and has [facility]. He and Mikal grew up and have lived in the [place] area their whole lives. 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 He likes to posey, fish, spend time with Isha, go to the beach, make art with [employer]. Wekeep very busy. NO reid practice. They have travelled the world extensively. Family History Problem Relation Age of Onset ??? Hypertension Father ??? Heart Disease Father ??? Diabetes Father ??? Cerebrovascular Accident Father ??? Cataracts Father ??? Macular Degeneration Father ??? Heart Failure Mother ??? Hypertension Mother ??? Skin Cancer Neg Hx ??? Cancer Neg Hx ??? Glaucoma Neg Hx ??? Retinal Detachment Neg Hx ??? Strabismus Neg Hx ??? Thyroid Disease Neg Hx Review of Systems A complete review of systems was obtained. Positives are noted in the HPI. All remaining systems are negative. Physical Exam General Pleasant male in no acute respiratory distress. Vitals Pulse: 62 Weight 93.4 kg (206 lb). Body mass index is 31.32 kg/m??. O2 sat 91% on RA HEENT PER, EOMI. Neck Supple, no stridor. Trachea is midline. Lungs Clear to auscultation bilaterally. No crackles, wheezes, or pleural rubs. Chest excursion is symmetric. Cardiac Regular rhythm, no murmurs. Extremities No cyanosis, clubbing, or peripheral edema. Neuro Alert and oriented to name, time, and location. Ambulates without difficulty. Objective Data - no interval data to review. Laboratory 06/26/2017 Hgb 14.4; CO2 32 (H), Cr 1.1 Radiology 05/18/2017 CXR PA/LAT shows poor inspiratory effort, evidence of atelectasis. L Pacer. Sternotomy bands. Cannot visualize bioprosthetic aortic valve. Pulmonary Function Testing 08/26/2017 Resting O2 sat 97% (RA), decreases to 90% with ambulation. Adequate inspiratory flow ratefor MDI, DPI, but not for handihaler device. 12/18/2016 (BI) FEV1 0.93L (34%), FVC 1.38L (38%), FEV1/FVC 0.67; following bronchodilator, FEV1 1.00L (37%, +8%), and FVC 1.58L (44%, +14%), FEV1/FVC 0.63; TLC 54%, RV 82%, DLCO 50% Assessment / Plan COPD with severe to very severe airflow obstruction. No improvement with various inhaled medications. Will plan to increase activity as tolerated. (Xrt-vi-Ihpor exercises practiced today during clinic.) Encourage water aerobics participation. He would like to increase overall muscle mass which I support, and I believe the combination of exercise and increased dietary protein intake will help withthis. No follow-up is planned at this time, but I would be delighted to meet with Mr. Álvarez in the future should the need arise. --Vamsi Merino MD documented in this encounter Plan of Treatment Upcoming Encounters Date Type Department Care Team (Late st Contact Info) Description 08/31/2024 10:00 AM EST Hospital Encounter Non[place] [address] Arrived documented as of this encounter Visit Diagnoses Diagnosis COPD, severe Chronic airway obstruction, not elsewhere classified documented in this encounter Care Teams Supervisor Drilling And Shooting Relationship Specialty Start Date End Date Ricki Traylor MD [facility] [place] [address] PCP - General General Internal Medicine 05/30/1710/09 documented as of this encounter
--- OUTSIDE RECORDS SUMMARY | 2024-06-16 15:33 | XMS_ITS | Encounter Summary ---
Author Organization [facility] Address [facility] [place] [address] Care Team Providers Care Accounts Payable Associate Name Role Phone Ricki Traylor MD Primary Care Provider Reason for Visit * Reason Onset Date Comments Appointment 12/26/2018 Encounter Details Date Type Department Care Team (Late st Contact Info) Description 12/26/2018 [place] [phone] Preeti Dela Cruz OD [facility] [place] [address] Appointment Social History Tobacco Use Types Packs/Day Years Used Date Smoking Tobacco: Former Cigarettes 1 25 1 565 - 0240 Smokeless Tobacco: Never Alcohol Use Standard Drinks/Week Comments No 0 (1 standard drink = 0.6 oz pur e alcohol) Sex and Gender Information Value Date Recorded Sex Assigned at Not on file Gender Identity Not on file Sexual Orientation Not on file documented as of this encounter Miscellaneous Notes * Telephone Encounter - Carmen Stack - 01/01/2019 4:00 PM EDT 2nd call spoke with , will send letter of reminder to pt. Letter mailed. * Telephone Encounter - Lisa Miller - 12/26/2018 11:03 AM EDT Called patient and spoke to patient's spouse as the patient was driving. Patient's spouse stated that they would call on Friday to schedule appointment. 1 year CEE with Jose De Jesus. documented in this encounter Plan of Treatment Upcoming Encounters Date Type Department Care Team (Late st Contact Info) Description 08/31/2024 10:00 AM EST Hospital Encounter Non[place] [address] Arrived documented as of this encounter Visit Diagnoses Not on filedocumented in this encounter Care Teams Accounts Payable Associate Relationship Specialty Start Date End Date Ricki Traylor MD [facility] [address] PCP - General General Internal Medicine 05/30/1710/09 documented as of this encounter
--- OUTSIDE RECORDS SUMMARY | 2024-06-16 15:33 | XMS_ITS | Encounter Summary ---
Author Organization [facility] [place] [address] Care Team Providers Care Wardrobe Custodian Name Role Phone Ricki Traylor MD Primary Care Provider [phone] Encounter Details Date Type Department Care Team (Late st Contact Info) Description 08/23/2019 Telephone [place] [address] Baron Hannon Social History Tobacco Use Types Packs/Day Years Used Date Smoking Tobacco: Former Cigarettes 1 04 09 075 - 1979 Smokeless Tobacco: Never Alcohol Use Standard Drinks/Week Comments No 0 (1 standard drink = 0.6 oz pur e alcohol) Sex and Gender Information Value Date Recorded Sex Assigned at Not on file Gender Identity Not on file Sexual Orientation Not on file documented as of this encounter Miscellaneous Notes * Telephone Encounter - Baron Hannon - 08/23/2019 1:33 PM EST Pt will call back to schedule physical exam documented in this encounter Plan of Treatment Upcoming Encounters Date Type Department Care Team (Late st Contact Info) Description 08/31/2024 10:00 AM EST Hospital Encounter Non-Invasive [place] [address] Arrived documented as of this encounter Visit Diagnoses Not on filedocumented in this encounter Care Teams Wardrobe Custodian Relationship Specialty Start Date End Date Ricki Traylor MD [facility] [place] [address] PCP - General General Internal Medicine 05/30/1710/09 documented as of this encounter
--- OUTSIDE RECORDS SUMMARY | 2024-06-16 15:33 | XMS_ITS | Encounter Summary ---
Author Organization [facility] [place] [address] Care Team Providers Care Service Control Operator Name Role Phone Ricki Traylor MD Primary Care Provider [phone] Encounter Details Date Type Department Care Team (Late st Contact Info) Description 06/08/2019 External Results Cardiology at [address] [phone] Social History Tobacco Use Types Packs/Day Years Used Date Smoking Tobacco: Former Cigarettes 1 04 09 115 - 7057 Smokeless Tobacco: Never Alcohol Use Standard Drinks/Week [...] AM EST Hospital Encounter Non[place] [phone] Arrived documented as of this encounter Procedures Procedure Name Priority Date/Time Associated Diagnosis Comments EP DEVICE SCAN Routine 05/26/2019 documented in this encounter Results * Scan Doc: EP Device (05/26/2019) Anatomical Region Laterality Modality Other Historical Provider MD MCMAHON MGR SCAN EX T ORDR/RSLT documented in this encounter Visit Diagnoses Not on filedocumented in this encounter Care Teams Service Control Operator Relationship Specialty Start Date End Date Ricki Traylor MD [facility] [place] [address] PCP - General General Internal Medicine 05/30/1710/09 documented as of this encounter
--- OUTSIDE RECORDS SUMMARY | 2024-06-16 15:33 | XMS_ITS | Encounter Summary ---
Author Organization [facility] [place] [address] Care Team Providers Care Food Service Substitute Name Role Phone Ricki Traylor MD Primary Care Provider [phone] Reason for Visit * Reason Onset Date Comments Other 11/30/2019 Faxed certificat e of medical necessity to [facility] Encounter Details Date Type Department Care Team (Late st Contact Info) Description 11/30/2019 Telephone [place] [phone] Crista Benites, ТАТЬЯНА Other (Faxed certificate of medical necessity to [facility]) Social History Tobacco Use Types Packs/Day Years [...] AM EST Hospital Encounter Non-Invasive [place] [address] Arrived documented as of this encounter Visit Diagnoses Not on filedocumented in this encounter Care Teams Food Service Substitute Relationship Specialty Start Date End Date Ricki Traylor MD [facility] [place] [address] PCP - General General Internal Medicine 05/30/1710/09 documented as of this encounter
--- OUTSIDE RECORDS SUMMARY | 2024-06-16 15:33 | XMS_ITS | Encounter Summary ---
Author Organization [facility] Address [facility] [place] [address] Care Team Providers Care Agricultural Produce Washer Name Role Phone Ricki Traylor MD Primary Care Provider [phone] Reason for Referral * E-Consultation (Routine) - Specialty Diagnoses / Procedures Referred By Contac t Referred To Contact Pharmacy Diagnoses Chronic obstructive pulmonary disease, unspecified COPD type Procedures eConsult to Amb Pharmacy (Primary Care Use Only) Ricki Traylor MD [facility] [place] [address] Referral ID Status Reason Start Date Expiration Date V isits Requested Visits Authorized [id number] 09/27/2019 09/26/2020 1 1 Encounter Details Date Type Department Care Team (Late st Contact Info) Description 09/27/2019 Orders [place] [address] Ricki Traylor MD [facility] [place] [address] Chronic obstructive pulmonary disease, unspecified COPD type Social History Tobacco Use Types Packs/Day [...] AM EST Hospital Encounter Non-[place] [address] Arrived documented as of this encounter Visit Diagnoses Diagnosis Chronic obstructive pulmonary disease, unspecified COPD type documented in this encounter Care Teams Agricultural Produce Washer Relationship Specialty Start Date End Date Ricki Traylor MD [facility] [place] [address] PCP - General General Internal Medicine 05/30/1710/09 documented as of this encounter
--- OUTSIDE RECORDS SUMMARY | 2024-06-16 15:33 | XMS_ITS | Encounter Summary ---
[place] [address] Care Team Providers Care Animal Behaviourist Name Role Phone Ricki Traylor MD Primary Care Provider [phone] Reason for Visit * Reason Onset Date Comments Medication Refill 08/09/2019 Encounter Details Date Type Department Care Team (Late st Contact Info) Description 08/09/2019 [place] [phone] Ernestine Wilder Social History Tobacco Use Types Packs/Day Years [...] Miscellaneous Notes * Telephone Encounter - Ernestine Wilder - 08/09/2019 10:35 AM EST Pt stated he will be out in 2 days and asked to have rushed if possible. documented in this encounter Plan of Treatment Upcoming Encounters Date Type Department Care Team (Late st Contact Info) Description 08/31/2024 10:00 AM EST Hospital Encounter [place] [phone] Arrived documented as of this encounter Visit Diagnoses Not on filedocumented in this encounter Care Teams Animal Behaviourist Relationship Specialty Start Date End Date Ricki Traylor MD [facility] [place] [address] PCP - General General Internal Medicine 05/30/1710/09 documented as of this encounter
--- OUTSIDE RECORDS SUMMARY | 2024-06-16 15:33 | XMS_ITS | Encounter Summary ---
[place] [address] Care Team Providers Care Heel Seater Name Role Phone Ricki Traylor MD Primary Care Provider [phone] Reason for Visit * Reason Onset Date Comments Medication Refill 08/23/2019 Encounter Details Date Type Department Care Team (Late st Contact Info) Description 08/23/2019 Refill [place] [phone] Mehnaz Vincent Social History Tobacco Use Types Packs/Day Years [...] encounter Miscellaneous Notes * Telephone Encounter - Mehnaz Vincent - 08/23/2019 10:26 AM EST The pt is currently out of medication and is asking to pick it up today please. documented in this encounter Plan of Treatment Upcoming Encounters Date Type Department Care Team (Late st Contact Info) Description 08/31/2024 10:00 AM EST Hospital Encounter Non-[place]vasive [place] [phone] Arrived documented as of this encounter Visit Diagnoses Not on filedocumented in this encounter Care Teams Heel Seater Relationship Specialty Start Date End Date Ricki Traylor MD [facility] [place] [address] PCP - General General Internal Medicine 05/30/1710/09 documented as of this encounter
--- OUTSIDE RECORDS SUMMARY | 2024-06-16 15:33 | XMS_ITS | Encounter Summary ---
Author Organization [facility] Address [facility] [place] [place] [address] Care Team Providers Care Whiting Can Worker Name Role Phone Ricki Traylor MD Primary Care Provider [phone] Reason for Visit * Reason Onset Date Comments Other 10/15/2019 Encounter Details Date Type Department Care Team (Late st Contact Info) Description 10/15/2019 Telephone [place] [phone] Monica Wilder Other Social History Tobacco Use Types Packs/Day Years Used Date Smoking Tobacco: Former Cigarettes 1 25 1 475 - 3990 Smokeless Tobacco: Never Alcohol Use Standard Drinks/Week Comments No 0 (1 standard drink = 0.6 oz pur e alcohol) Sex and Gender Information Value Date Recorded Sex Assigned at Not on file Gender Identity Not on file Sexual Orientation Not on file documented as of this encounter Miscellaneous Notes * Telephone Encounter - Khadra Banda RN - 10/15/2019 3:18 PM EST I returned patient call. He states he has been trying to get answers since his appointment on 09/[address] Traylor. He has a lot of confusion regarding his prescriptions for his inhalers. He states that the medications that were at the pharmacy for him are not what he remembers from his appointment.He states Dr. Traylor told him he would have only one inhaler. He states the information the pharmacist gave him is different from what the nurse gave him at his appointment. Due to the confusion and not hearing back from anyone he canceled his appointment for CT scan stating he doesn't really know why he is having it and he also does not want to see pulmonology until he understands what is going on with his inhalers. He states he knows he has COPD but doesn't know why he is seeing pulmonology again when he has seem them in the past and nothing changed. He also expressed concerns that the Respimat is the inhaler that made him sick in the past. He states Dr. Traylor knows all of this. He will not move forward with any of it until Dr. Traylor can confirm that he ordered these inhalers and really wants him to have CT and follow up with Pulmonary. He states he was told that he would be hearing from someone regarding his oxygen order but that hasn't happened either. I told patient that I would send a message to Dr. Traylor and ask him to please call him. I also apologized that it has taken so long for him to get a callback. * Telephone Encounter - Monica Solis - 10/15/2019 1:52 PM EST Message: patient is calling stating he would like to speak with a nurse in regards to his pulmonaryscripts and ct scans stating he has a simple question and he hasn't done a single thing yet in regards to his tests and he's waiting to ask his question. Ask caller their first and last name and relationship to the patient: patient Best time to call back: any Ok to leave a message: yes Ok to send [facility] message: n Offered Appointment: n MA/Nurse/Pantograph Machine Set Up Operator contacted via: Message: y Call: n Pager: n documented in this encounter Plan of Treatment Upcoming Encounters Date Type Department Care Team (Late st Contact Info) Description 08/31/2024 10:00 AM EST Hospital Encounter Non-Invasive [place] [address] Arrived documented as of this encounter Visit Diagnoses Not on filedocumented in this encounter Care Teams Whiting Can Worker Relationship Specialty Start Date End Date Ricki Traylor MD [facility] [place] [address] PCP - General General Internal Medicine 05/30/1710/09 documented as of this encounter
--- OUTSIDE RECORDS SUMMARY | 2024-06-16 15:33 | XMS_ITS | Encounter Summary ---
[place] [address] Care Team Providers Care Risk Consulting Treasury Director Name Role Phone Ricki Traylor MD Primary Care Provider [phone] Encounter Details Date Type Department Care Team (Late st Contact Info) Description 11/25/2018 Orders Only Cardiology at [address] [phone] Social History Tobacco Use Types Packs/Day Years Used Date Smoking Tobacco: Former Cigarettes 1 04 09 175 - 1801 Smokeless Tobacco: Never Alcohol Use Standard Drinks/Week [...] AM EST Hospital Encounter [place] [phone] Arrived documented as of this encounter Procedures Procedure Name Priority Date/Time Associated Diagnosis Comments CARDIAC DEVICE CHECK - REMOTE SCHEDULED Routine 11/25/2018 3:21 AM EDT documented in this encounter Results * (ABNORMAL) Cardiac device check - Remote Scheduled (11/25/2018 3:21 AM EDT) Date Time Interrogation Session [id number] IDCO Type Interrogation Session Remote Scheduled IDCO Clinic Name [facility] IDCO Battery Date Time of Measurements [id number] IDCO Battery Status Beginning of Service IDCO Battery Remaining Longevity 72 mo IDCO Battery Remaining Percentage 100 % IDCO Episode Identifier APM-17 IDCO Episode Date Time IDCO Episode Type Category Periodic EGM IDCO Episode Vendor Type Category APMRT IDCO Episode Detection And Therapy Details Presenting EGM IDCO Episode Identifier [id number] IDCO Episode Date Time IDCO Episode Type Category Other IDCO Episode Vendor Type Category IDCO Episode Duration IDCO Episode Detection And Therapy Details RA Auto IDCO Episode Identifier [id number] IDCO Episode Date Time IDCO Episode Type Category Other IDCO Episode Vendor Type Category IDCO Episode Duration IDCO Episode Detection And Therapy Details RV Auto IDCO Episode Identifier ATR-5 IDCO Episode Date Time IDCO Episode Type Category AT/AF IDCO Episode Vendor Type Category ATR IDCO Episode Detection Interval Atrial 952 ms IDCO Episode Duration 2 s IDCO Episode Detection And Therapy Details ATR Avg V Rate in ATR: 66 bpm IDCO Episode Statistic Type Category VT IDCO Episode Statistic Vendor Type Category IDCO Episode Statistic Recent Count 0 IDCO Episode Statistic Recent Date Time Start 20180824 IDCO Episode Statistic Recent Date Time End 20181125 IDCO Episode Statistic Type Category SVT IDCO Episode Statistic Vendor Type Category SVT IDCO Episode Statistic Recent Count 0 IDCO Episode Statistic Recent Date Time Start 20180824 IDCO Episode Statistic Recent Date Time End 20181125 IDCO Episode Statistic Type Category VT IDCO Episode Statistic Vendor Type Category NSVT IDCO Episode Statistic Recent Count 0 IDCO Episode Statistic Recent Date Time Start 20180824 IDCO Episode Statistic Recent Date Time End 20181125 IDCO Episode Statistic Type Category AT/AF IDCO Episode Statistic Vendor Type Category ATR IDCO Episode Statistic Recent Count 1 IDCO Episode Statistic Recent Date Time Start 20180824 IDCO Episode Statistic Recent Date Time End 20181125 IDCO Episode Statistic Type Category Other IDCO Episode Statistic Vendor Type Category IDCO Episode Statistic Recent Count 0 IDCO Episode Statistic Recent Date Time Start 20180824 IDCO Episode Statistic Recent Date Time End 20181125 IDCO Zeferino Setting AT Mode Switch Mode [...] L311 IDCO Implantable Pulse Generator Serial Number [id number] IDCO Implantable Pulse Generator Loan Processor [employer] IDCO Implantable Pulse Generator Implant Date 20170108 IDCO Implantable Lead Model 7741 IDCO Implantable Lead Serial Number [id number] IDCO Implantable Lead Loan Processor [employer] IDCO Implantable Lead Implant Date IDCO Implantable Lead Polarity Type Bipolar Lead IDCO Implantable Lead Location Right Atrium IDCO Implantable Lead Model [id number] IDCO Implantable Lead Serial Number [id number] IDCO Implantable Lead Loan Processor [employer] IDCO Implantable Lead Implant Date IDCO Implantable Lead Polarity Type Bipolar Lead IDCO Implantable Lead Location Right Ventricle IDCO Lead Channel Measurements Date and Time Start 20181123 IDCO Lead Channel Sensing Intrinsic Amplitude Mean 3.9 mV IDCO Lead Channel Sensing Polarity Bipolar IDCO Lead Channel Pacing Threshold Amplitude 0.6 V IDCO Lead Channel Pacing Threshold Pulse Width 0.4 ms IDCO Lead Channel Pacing Threshold Measurement Method Device Automatic IDCO Lead Channel Pacing Threshold Polarity Bipolar IDCO Lead Channel Impedance Value 577 ohms IDCO Lead Channel Impedance Polarity Bipolar IDCO Lead Channel Measurements Date and Time Start 20181123 IDCO Lead Channel Sensing Intrinsic Amplitude Mean mV IDCO Lead Channel Sensing Polarity Bipolar IDCO Lead Channel Pacing Threshold Amplitude 1.2 V IDCO Lead Channel Pacing Threshold Pulse Width 0.4 ms IDCO Lead Channel Pacing Threshold Measurement Method Device Automatic IDCO Lead Channel Pacing Threshold Polarity Bipolar IDCO Lead Channel Impedance Value 778 ohms IDCO Lead Channel Impedance Polarity Bipolar IDCO Statistic Date Time Start 20180824 IDCO Statistic Date Time End 20181125 IDCO Zeferino Statistic Date Time Start 20180824 IDCO Zeferino Statistic Date Time End 20181125 IDCO Zeferino Statistic RA Percent Paced 35 % IDCO Zeferino Statistic RV Percent Paced 100 % IDCO Atrial Tachy Statistic Date Time Start 20180826 IDCO Atrial Tachy Statistic Date Time End 20181124 IDCO Atrial Tachy Statistic AT/AF [place] Percent 1(<) % IDCO Anatomical Region Laterality Modality Other 11/25/2018 3:21 AM EDT Physician Cardiology IMPLANTABLE CARD IAC DEVICE documented in this encounter Visit Diagnoses Not on filedocumented in this encounter Care Teams Risk Consulting Treasury Director Relationship Specialty Start Date End Date Ricki Traylor MD [facility] [place] [address] PCP - General General Internal Medicine 05/30/1710/09 documented as of this encounter
--- OUTSIDE RECORDS SUMMARY | 2024-06-16 15:33 | XMS_ITS | Encounter Summary ---
Author Organization [facility] Address [facility] [place] [address] Care Team Providers Care Gamemaster Name Role Phone Ricki Traylor MD Primary Care Provider [phone] Reason for Visit * Reason Onset Date Comments Medication Refill 12/17/2019 Encounter Details Date Type Department Care Team (Late st Contact Info) Description 12/17/2019 Refill Dermatology at [facility] [address] [place] [address] Call, Jaylan Sawyer MD [facility] [address] [address] Social History Tobacco Use Types Packs/Day Years Used Date Smoking Tobacco: Former Cigarettes 1 25 1 955 - 4145 Smokeless Tobacco: Never Alcohol Use Standard Drinks/Week Comments No 0 (1 standard drink = 0.6 oz pur e alcohol) Sex and Gender Information Value Date Recorded Sex Assigned at Not on file Gender Identity Not on file Sexual Orientation Not on file documented as of this encounter Miscellaneous Notes * Telephone Encounter - Marge Gatica - 12/17/2019 2:55 PM EDT Vikashrein Álvarez called and needs a refill of his triamcinolone 454g sent to the [facility] in [place], [place]. He does not feel comfortable coming into clinic and he said that his legs really need it joe is almost out. He was prescribed this by Dorothy Pandey back in January of 2019. If there is an issue, please let me know so I can give him a call. documented in this encounter Plan of Treatment Upcoming Encounters Date Type Department Care Team (Late st Contact Info) Description 08/31/2024 10:00 AM EST Hospital Encounter [place] [address] Arrived documented as of this encounter Visit Diagnoses Not on filedocumented in this encounter Care Teams Gamemaster Relationship Specialty Start Date End Date Ricki Traylor MD [facility] [place] [address] PCP - General General Internal Medicine 05/30/1710/09 documented as of this encounter
--- OUTSIDE RECORDS SUMMARY | 2024-06-16 15:33 | XMS_ITS | Encounter Summary ---
Author Organization [facility] Address [facility] [place] [address] Care Team Providers Care Derrick Builder Name Role Phone Ricki Traylor MD Primary Care Provider [phone] Encounter Details Date Type Department Care Team (Late st Contact Info) Description 01/12/2019 Telephone Dermatology at [facility] [address] [place] [address] Jojo Abdullahi MD [facility] [address] [place] [address] Social History Tobacco Use Types Packs/Day Years Used Date Smoking Tobacco: Former Cigarettes 1 25 1 625 - 4621 Smokeless Tobacco: Never Alcohol Use Standard Drinks/Week Comments No 0 (1 standard drink = 0.6 oz pur e alcohol) Sex and Gender Information Value Date Recorded Sex Assigned at Not on file Gender Identity Not on file Sexual Orientation Not on file documented as of this encounter Miscellaneous Notes * Telephone Encounter - Ernestine Caldwell - 01/12/2019 3:14 PM EDT I reached out to reschedule Mr. Álvarez's appointment that had originally been scheduled for this coming . I left a voicemail explaining that it had to be canceled and left our telephone numberto the main line requesting that he call us back to reschedule. Ernestine Caldwell, Clinical Pumping Plant Operator documented in this encounter Plan of Treatment Upcoming Encounters Date Type Department Care Team (Late st Contact Info) Description 08/31/2024 10:00 AM EST Hospital Encounter Non[place] [address] Arrived documented as of this encounter Visit Diagnoses Not on filedocumented in this encounter Care Teams Derrick Builder Relationship Specialty Start Date End Date Ricki Traylor MD [facility] [address] [place] [address] PCP - General General Internal Medicine 05/30/1710/09 documented as of this encounter
--- OUTSIDE RECORDS SUMMARY | 2024-06-16 15:33 | XMS_ITS | Encounter Summary ---
Author Organization [facility] Address [facility] [place] [address] Care Team Providers Care Brim Shaper Name Role Phone Ricki Traylor MD Primary Care Provider [phone] Encounter Details Date Type Department Care Team (Late st Contact Info) Description 02/03/2019 Telephone Dermatology at [facility] [address] [place] [address] Cary Pandey MD [facility] [address] [place] [address] Social History Tobacco Use Types Packs/Day Years Used Date Smoking Tobacco: Former Cigarettes 1 25 1 715 - 5929 Smokeless Tobacco: Never Alcohol Use Standard Drinks/Week Comments No 0 (1 standard drink = 0.6 oz pur e alcohol) Sex and Gender Information Value Date Recorded Sex Assigned at Not on file Gender Identity Not on file Sexual Orientation Not on file documented as of this encounter Miscellaneous Notes * Telephone Encounter - Cary Pandey MD - 02/04/2019 5:30 PM EDT Called patient back. Ok to use triamcinolone qhs and compression during day. Patient was able to hot die picker compression stockings from [employer] for reasonable laboy. * Telephone Encounter - Jesi Jones - 02/03/2019 10:15 AM EDT Second request - Patient reached out that his insurance will not cover his support stockings ordered by Dr. Pandey. He also has some questions regarding his triamcinolone (KENALOG) 0.1 % Ointment and ifhe can apply this to his legs and then put the stockings on (if he is able to order them). He requested a call at [phone] documented in this encounter Plan of Treatment Upcoming Encounters Date Type Department Care Team (Late st Contact Info) Description 08/31/2024 10:00 AM EST Hospital Encounter Non-Invasive [place] [address] Arrived documented as of this encounter Visit Diagnoses Not on filedocumented in this encounter Care Teams Brim Shaper Relationship Specialty Start Date End Date Ricki Traylor MD [facility] [place] [address] PCP - General General Internal Medicine 05/30/1710/09 documented as of this encounter
--- OUTSIDE RECORDS SUMMARY | 2024-06-16 15:33 | XMS_ITS | Encounter Summary ---
Author Organization [facility] Address [facility] [place] [address] Care Team Providers Care Boom Supervisor Name Role Phone Ricki Traylor MD Primary Care Provider [phone] Reason for Visit * Reason Comments Follow-up Encounter Details Date Type Department Care Team (Late st Contact Info) Description 05/05/2019 1:30 PM EDT Office Visit Dermatology at [facility] [address] [place] [address] Call, Jaylan Sawyer MD [facility] [address] [address] Neoplasm of uncertain behavior of skin; Stasis dermatitis of both legs; Martinez angiomas; Seborrheic keratoses; Sebaceous hyperplasias of face; Actinic keratoses; Lentigines Social History Tobacco Use Types Packs/Day Years Used Date Smoking Tobacco: Former Cigarettes 25 1 955 - 1980 Smokeless Tobacco: Never Alcohol Use Standard Drinks/Week Comments No 0 (1 standard drink = 0.6 oz pur e alcohol) Sex and Gender Information Value Date Recorded Sex Assigned at Not on file Gender Identity Not on file Sexual Orientation Not on file documented as of this encounter Patient Instructions * Patient Instructions* Guillermina Ha - 05/05/2019 1:30 PM EDT - Moisturizer recommendations: CeraVe cream, CeraVe lotion, CeraVe lite lotion, Vanicream cream ABOUT YOUR TREATMENTS Your Treatment today: You had a biopsy of your skin (removal of a small piece of tissue for examination under microscope). You had a shave biopsy and do not have sutures. Location of your biopsy: Keep in mind the location of your biopsy site in case further treatment is necessary. Wound care Instructions: 1. Keep wound dry and covered for 24 hours then clean area with soap and water. 2. Pat dry completely 3. Cover with Vaseline and a new bandage daily, do this everyday until the wound is healed Please call [phone] if you have questions or concerns. * Please allow one or two weeks for the biopsy results to return. *Based on your biopsy results we will either call you or send you a letter with the results. *If in two weeks, you have not heard from us, please feel free to call and request your biopsy results. Actinic Keratoses You have been diagnosed today with Actinic Keratosis (AK). These dry, scaly patches are considered the earliest stage in the development of skin cancer. In rare cases, an AK can progress to skin cancer. Because of this risk, AKs are usually treated. You were treated today with Liquid Nitrogen. This is the most common treatment for AKs. Liquid nitrogen is extremely cold, and freezes the surface of the skin, causing the lesion to flake off. Treatment with liquid nitrogen can be uncomfortable, but discomfort should subside after a couple of hours. The area treated will look red and irritated, and it may blister up or turn dark, then fall off. This is normal! You do not need any special treatment for the area, but you may find cold compresses and/or a lightapplication of Vaseline soothing. For best results, do not rub or pick at the healing lesion. Expected healing time is 3-4 weeks. Please contact the Dermatology clinic at [phone] if the lesion has not fully resolved after 6 weeks. documented in this encounter Progress Notes * Jaylan Vazquez - 05/05/2019 1:30 PM EDT Images from the original note were not included. DERMATOLOGY - ESTABLISHED PATIENT FOLLOW-UP Date of service: 05/05/2019 Vikash Álvarez : 1940, 78 y.o. Chief Complaint: Chief Complaint Patient presents with ??? Follow-up HPI: Vikash Álvarez is a 78 y.o. male last seen by Dr. Pandey on 02/01/2019. Mr. Álvarez returns today for follow up of stasis dermatitis. He has been wearing compression stockings most days of the week and treating topically with triamcinolone ointment once or twice weekly, which keeps the scale down. His legs no longer burn, but they still itch. He also has a spot on his chest that he would like to have examined, tender to palpation Relevant Skin History: - Okay to leave detailed message with results? Yes - Skin cancer (including type): None ?? Family History: Melanoma: None ?? Relevant Social History: - - Lives in [place], [place] Medications: Current Outpatient Medications Medication Sig Dispense Refill ??? triamcinolone (KENALOG) 0.1 % Ointment Use [...] and in no noticeable distress. - Skin: Examination of skin from the waist up and of the lower legs and feet was performed. This includes examination of the skin of the face, ears, scalp, neck, chest, axillae, left and right upper extremities, hands, back, abdomen, lower legs, and feet. - A female scribe was present and on standby during my examination. Diagnosis/Skin findings/Assessment/Plan: # Hypertrophic AK r/o SCC - Central superior chest: 8mm scaly papule. - Joint decision to pursue biopsy at this time to further evaluate etiology. Procedure: Skin biopsy by shave technique Location: Central superior chest Discussed indications for procedure and expectations including risks and benefits. Verbal consent obtained. Skin prep with alcohol. Local anesthesia with 1% xylocaine, 1/100,000 epinephrine. A sampleof the lesion was removed by shave technique to the level of the dermis and submitted to Pathology.Hemostasis obtained (AlCl and/or electrocautery). There were no complications; the pt. tolerated the procedure well. The wound was dressed. Post-procedure expectations, wound care and activity restrictions were reviewed. Follow-up based on pathology results. # Actinic keratoses - 0.2-0.3cm scaly irregular pink papule located on the nose x1, left cheek x1, and right cheek x1. - LN2 x 2 to lesions, advised to return if lesion does not resolve. - Discussed etiology and patient agreed for cryotherapy Procedure Note: Procedure: Destruction of lesions with cryotherapy. Number: 3 Location: as above Discussed procedure and expectations including risks (including risk of hypopigmentation) and benefits. Verbal consent obtained. Frozen with LN2, 15-30 second thaw time, TWICE. There were no complications; the patient tolerated the procedure well. Post-procedure expectations and wound care were reviewed. # Stasis dermatitis - Improved on exam today. Few scaly papules and brawny discoloration on the bilateral lower legs. - Continue wearing compression stockings whenever possible. - Recommended moisturizing with CeraVe, Vanicream, or Cetaphil throughout the day as needed. - Continue treating with triamcinolone 0.1% ointment. Apply to the legs twice weekly for maintenance. For flares, apply twice daily for up to 14 days, then take 1 week off. Repeat as needed. # Solar lentigines - 0.2-0.6cm light-brown evenly pigmented, well-demarcated macules on the scalp. - Patient reassured of benign nature, reinforced importance of sun protection. # Martinez angiomas - Multiple 0.2-0.4cm bright red, well-demarcated papules on the abdomen and back. - Reassured of benign nature. # Seborrheic keratoses - Scattered brown and flesh colored waxy nummular stuck on plaques located on the trunk and extremities. - Reassured of benign nature, return to clinic if these lesions become inflamed or irritating. # Sebaceous hyperplasias - 0.2-0.3cm yellowish papule with central umbilication on the cheeks and forehead. - Patient reassured of benign nature. - No treatment necessary. RTC: Pending pathology, otherwise 1 year for FSE, sooner if needed. Routed for scheduling. The following photos were obtained with patient consent: Note initiated by ESTEBAN SWEET LPN. I, Guillermina Ha, have performed the documentation for this encounter [...] Center Patient seen and evaluated with staff employee relations assistant: Reginaldo Luke MD Section of Dermatology [facility] * Reginaldo Luke MD - 05/05/2019 1:30 PM EDT I directly supervised Dr. Vazquez during this office visit. Dr. Vazquez presented the history and physical exam to me. I then saw and examined this patient with Dr. Vazquez. We reviewed the history and pertinent details and I confirmed the physical findings. I agree with the details of the history and physical exam as documented in Dr. Vazquez's note. Reginaldo Luke MD Staff Physician documented in this encounter Miscellaneous Notes * Addendum Note - Reginaldo Luke MD - 05/05/2019 1:30 PM EDTAddended by: REGINALDO LUKE on: 05/06/2019 07:07 PM Modules accepted: Level of Service documented in this encounter Plan of Treatment Upcoming Encounters Date Type Department Care Team (Late st Contact Info) Description 08/31/2024 10:00 AM EST Hospital Encounter Non-[place] [address] Arrived documented as of this encounter Procedures Procedure Name Priority Date/Time Associated Diagnosis Comments SPECIMEN TO PATHOLOGY Routine 05/05/2019 2:42 PM EDT Neoplasm of uncertain behavior of skin SURGICAL PATHOLOGY REPORT Routine 05/05/2019 1:55 PM EDT documented in this encounter Results * Specimen to Pathology (05/05/2019 2:42 PM EDT) AP Specimen 05/05/2019 2:42 PM EDT 05/05/2019 7:06 PM EDT Narrative [facility] - 05/05/2019 7:06 PM EDT Specimen requisition ordered. ??Separate Pathology report to follow Resulting Agency Comment Spec In Lab Reginaldo Luke MD PATHOLOGY/CYTOLOG Y ORDERABLES [facility] [place] [address] * Surgical Pathology Report (05/05/2019 1:55 PM EDT) Final Diagnosis [id number] ? Location: [facility] The signing pathologist has (i) examined the relevant preparation(s) for the specimen(s) and (ii) rendered or confirmed the diagnosis(es). . 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, [place], [place] CLINICAL INFORMATION Specimen Submitted: A - Skin, central superior chest, shave biopsy (1) Clinical History and Diagnosis: 8mm scaly papule; hypertrophic AK rule out SCC SPECIMEN PROCESSING A - Labeled/Fixative : Central superior chest, formalin. Quantity/Size: ??Single, 0.9 x 0.6 x 0.2 cm. Tissue Description: Shave of a firm, rankin-white to peripherally blue dyed and crusted papule. Sections/Process ing: Inked, quadrisected and entirely submitted in 1 cassette labeled A1. 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
--- OUTSIDE RECORDS SUMMARY | 2024-06-16 15:33 | XMS_ITS | Encounter Summary ---
Author Organization Counts Include [facility] [address] Care Team Providers Care Casing Cleaner Name Role Phone Ricki Traylor MD Primary Care Provider [phone] Reason for Referral * Consultation (Routine) - Closed Specialty Diagnoses / Procedures Referred By Contac t Referred To Contact Pulmonology Diagnoses Dyspnea, unspecified type Ricki Traylor MD [facility] GENERAL INTER[place] [address] [facility] Pulmonology [address] [place] [phone] Referral ID Status Reason Start Date Expiration Date V isits Requested Visits Authorized [id number] Closed Specialty Service Requested 09/23/2019 09/22/2020 1 1 Reason for Visit * Reason Comments Annual Wellness Visit Encounter Details Date Type Department Care Team (Late st Contact Info) Description 09/23/2019 10:00 AM EST Office [place] [address] Ricki Traylor MD [facility] GENER[facility] INTER[place] [address] Dyspnea, unspecified type Social History Tobacco Use Types Packs/Day Years Used Date Smoking Tobacco: Former Cigarettes 1 25 1 945 - 9648 Smokeless Tobacco: Never Alcohol Use Standard Drinks/Week Comments No 0 (1 standard drink = 0.6 oz pur e alcohol) Sex and Gender Information Value Date Recorded Sex Assigned at Not on file Gender Identity Not on file Sexual Orientation Not on file documented as of this encounter Last Filed Vital Signs Vital Sign Reading Time Taken Comments Blood Pressure 99/56 09/23/2019 10:01 AM EST Pulse 59 09/23/2019 10:01 AM EST Temperature 36.3 ??C (97.4 ??F) 09/23/2019 10:[address] Respiratory Rate 16 09/23/2019 10:01 AM EST Oxygen Saturation 98% 09/23/2019 10:01 AM EST Inhaled Oxygen Concentration - - Weight 91.2 kg (201 lb) 09/23/2019 10:01 AM EST Height 173.5 cm (5' 8.31) 09/23/2019 10:[address] Body Mass Index 30.29 09/23/2019 10:01 AM EST documented in this encounter Progress Notes * Cecelia Campos, INESA - 09/23/2019 10:00 AM EST Subjective: Patient ID: Vikash Álvarez is a 78 y.o. male presents today for an annual [facility] visit Self assessment of Health Status: (including patient concerns) Other providers: Cardiology Juan Jose Mills Ophthalmology Preeti Dela Cruz Dermatology Jaylan Call Suppliers: No Memory issues (mini-cog score 5): yes Advanced directives: Health Risk Assessment (HRA): (all responses reviewed [...] Mental Health Score 45.8 Hearing Loss Yes Little interest or pleasure Not at all Down, depressed, hopeless Not at all Past/Family/Social History/Medications and Allergies reviewed and/or documented below. (If using opioids or at risk for OUD, the benefits of using other, non-opioid pain therapies was discussed.) Objective: BP 99/56 (BP Location (NBP): Right arm, Patient Position: Sitting, BP Cuff Sizes: Adult (25-34 cm)) Pulse 59 Temp 36.3 ??C (97.4 ??F) (Oral) Resp 16 Ht 173.5 cm (5' 8.31) Wt 91.2 kg (201 lb) SpO2 98% BMI 30.29 kg/m?? Wt Readings from Last 3 Encounters: 09/23/19 91.2 kg (201 lb) 09/15/19 92.5 kg (204 lb) 09/15/19 92.5 kg (204 lb) Hearing assessment (whisper test, rubbing fingers) Physical Exam HENT: N EOM, OSCAR, N TM, N sinus, N Pharynx, N LN, N Thyroid?? Cardiovascular: N s1s2 w/o s3s4 2-3/sys murmur best at aortic root?? Pulmonary/Chest: Effort normal??bibasilar crackles Abdominal: Soft. Bowel sounds are normal. There is no tenderness. Without HSM?? Musculoskeletal: N BPT, Full ROM?? Assessment and Plan: Assessment/Plan: Mr. Álvarez was seen today for exam. In conclusion, we discussed the followin. SCREENING SCHEDULE & IMMUNIZATIONS - Health Maintenance Topic Date Due ??? Zoster vaccine (1 of 2) 10/26/1989 ??? Advance Directive 10/26/1994 ??? Tetanus vaccine 06/26/2027 ??? Pneumo vaccine (65+) Completed ??? Influenza (Flu) vaccine Completed ??? Tdap adult Completed 2. RISK FACTORS (including any positives from HRA) and 3. PERSONALIZED HEALTH ADVICE - [x] A copy of the Risk Factors and Personalized Health Advice and Health Maintenance List was copied to the patient's After Visit Summary. 1. Dyspnea, unspecified type - CT Chest wo Contrast (Generic); Future - Referral to Pulmonology - tiotropium-olodateroL (Stiolto Respimat) 2.5-2.5 mcg/actuation Mist; Inhale 2 puffs into the lungs 2 times daily. Dispense: 4 g; Refill: 3 - albuterol 90 mcg/actuation HFA Aerosol Inhaler; Inhale 2 puffs into the lungs every 4 hours as needed for Wheezing. Use with spacer Dispense: 1 Inhaler; Refill: 1 F/u prn F/u 3-6 mos documented in this encounter Plan of Treatment Upcoming Encounters Date Type Department Care Team (Late st Contact Info) Description 08/31/2024 10:00 AM EST Hospital Encounter [place] [address] Arrived Scheduled Referrals Name Type Priority Associated Diagnoses Orde r Schedule Referral to Pulmonology Outpatient Referral Routine Dyspnea, unspecified type Ordered: 09/23/2019 documented as of this encounter Visit Diagnoses Diagnosis Dyspnea, unspecified type documented in this encounter Care Teams Casing Cleaner Relationship Specialty Start Date End Date Ricki Traylor MD [facility] DR GENERAL INTERNAL [place] [address] PCP - General General Internal Medicine 05/30/1710/09 documented as of this encounter
--- OUTSIDE RECORDS SUMMARY | 2024-06-16 15:33 | XMS_ITS | Encounter Summary ---
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 Social History Tobacco Use Types Packs/Day [...] Time Taken Comments Blood Pressure 104/55 09/15/2019 10:08 AM EST Pulse 58 09/15/2019 10:08 AM EST Temperature - - Respiratory Rate - - Oxygen Saturation 98% 09/15/2019 10:08 AM EST Inhaled Oxygen Concentration - - Weight 92.5 kg (204 lb) 09/15/2019 10:08 AM EST Height 172.7 cm (5' 8) 09/15/2019 10:08 AM EST Body Mass Index 31.02 09/15/2019 10:08 AM EST documented in this encounter Progress Notes * Rae Graham, RN - 09/15/2019 10:00 AM EST Images from the original note were not included. Clinical Electrophysiology Device Service Note Vikash Álvarez is a 78 y.o. male who presents today to evaluate shortness of breath, lightheaded feeling and palpitations. He had a pacemaker implanted January 08, 2017 for SSS. 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 He also has history of COPD, CVA, HTN,STEMI, Coronary Stent and visual disturbance. PCP: Ricki Traylor MD Doll Wigs Hackler: Dr Mills Final Parameters at implant:( Please obtain lead info at next visit.) Ventricular electrode: Atrial electrode: Pulse generator: [employer] MRI L311 Serial # [id number] January 08, 2017 Settings: DDDR with Rythmiq OFF 60/130 PAV 260-300 ms FELICITY 210-240 ms Underlying rhythm: SB 40's bpm Presenting: AP/VS Atrial Lead: P wave: 3.0 mV Impedance: 692 ohms Threshold: 0.6 V @ 0.4 ms Ventricular Lead: R wave: >25 mV Impedance: 753 ohms Threshold: 1.1 V @ 0.4 ms Heart rate histograms: Good distribution with some left shifting heart rarely gets above 90 bpm Since Aug 24, 2018 Pacing percentages: AP 35%; [employer] 45 %(71) Mode switch episodes: <1% for 2 episode of brief AT/AFL over 4 sec 10-18 beats- not conducted VHR: none PACs 10.7 K PVCs 6.3 K Battery voltage: Est 6.5 years remaining Wound assessment: Well healed with good coverage Reprogramming: Iterative changes to assess device function Plan: Remote in 3 mos. 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 Cardiac pacemaker in situ documented in this encounter Care Teams Dining Room Server Relationship Specialty Start Date End Date Ricki Traylor MD [facility] [address] [place] [address] PCP - General General Internal Medicine 05/30/1710/09 documented as of this encounter
--- OUTSIDE RECORDS SUMMARY | 2024-06-16 15:33 | XMS_ITS | Encounter Summary ---
Author Organization [facility] Address [facility] [place] [address] Care Team Providers Care Clay Preparation Supervisor Name Role Phone Ricki Traylor MD Primary Care Provider [phone] Encounter Details Date Type Department Care Team (Late st Contact Info) Description 02/02/2019 Telephone Dermatology at [facility] [address] [place] [address] Cary Pandey MD [facility] DR AZALIA [place] [address] Social History Tobacco Use Types Packs/Day Years Used Date Smoking Tobacco: Former Cigarettes 955 - 5581 Smokeless Tobacco: Never Alcohol Use Standard Drinks/Week Comments No 0 (1 standard drink = 0.6 oz pur e alcohol) Sex and Gender Information Value Date Recorded Sex Assigned at Not on file Gender Identity Not on file Sexual Orientation Not on file documented as of this encounter Miscellaneous Notes * Telephone Encounter - Ernestine Caldwell - 02/02/2019 1:08 PM EDT Patient reached out with concern that his insurance will not cover his support stockings ordered byDr. Pandey. He also has some questions regarding his triamcinolone (KENALOG) 0.1 % Ointment and if he can apply this to his legs and then put the stockings on (if he is able to order them). He requesteda call at [phone]. Ernestine [facility], Clinical Compliance Investigator documented in this encounter Plan of Treatment Upcoming Encounters Date Type Department Care Team (Late st Contact Info) Description 08/31/2024 10:00 AM EST Hospital Encounter [place] [address] Arrived documented as of this encounter Visit Diagnoses Not on filedocumented in this encounter Care Teams Clay Preparation Supervisor Relationship Specialty Start Date End Date Ricki Traylor MD [facility] GENERAL [place] [address] PCP - General General Internal Medicine 05/30/1710/09 documented as of this encounter
--- OUTSIDE RECORDS SUMMARY | 2024-06-16 15:33 | XMS_ITS | Encounter Summary ---
Author Organization [facility] [place] [address] Care Team Providers Care Adult High School Instructor Name Role Phone Ricki Traylor MD Primary Care Provider [phone] Reason for Visit * Reason Comments Medication Refill Encounter Details Date Type Department Care Team (Late st Contact Info) Description 05/10/2019 [place] [phone] Ricki Traylor MD [facility] [address] [place] [address] Social History Tobacco Use Types Packs/Day Years [...] EST Hospital Encounter Non-Invasive [place] [phone] Arrived documented as of this encounter Visit Diagnoses Not on filedocumented in this encounter Care Teams Adult High School Instructor Relationship Specialty Start Date End Date Ricki Traylor MD [facility] [address] [place] [address] PCP - General General Internal Medicine 05/30/1710/09 documented as of this encounter
--- OUTSIDE RECORDS SUMMARY | 2024-06-16 15:33 | XMS_ITS | Encounter Summary ---
Author Organization [facility] [place] [address] Care Team Providers Care Envelope Press Operator Name Role Phone Ricki Traylor MD Primary Care Provider [phone] Reason for Visit * Reason Onset Date Comments Medication Problem 05/18/2019 Medication Refill 05/20/2019 Encounter Details Date Type Department Care Team (Late st Contact Info) Description 05/18/2019 [place] [phone] Vasiliy Polanco Chronic obstructive pulmonary disease, unspecified COPD type Social History Tobacco Use Types Packs/Day Years Used Date Smoking Tobacco: Former Cigarettes 1 25 1 955 - 8747 Smokeless Tobacco: Never Alcohol Use Standard Drinks/Week Comments No 0 (1 standard drink = 0.6 oz pur e alcohol) Sex and Gender Information Value Date Recorded Sex Assigned at Not on file Gender Identity Not on file Sexual Orientation Not on file documented as of this encounter Miscellaneous Notes * Telephone Encounter - Yaneth Zavala RN - 05/19/2019 8:52 AM EDT Forwarded information to PCP to address request to remove oxygen from home. * Telephone Encounter - Vasiliy Polanco - 05/18/2019 4:21 PM EDT Message: Rochelle from [facility] is calling stating that the patient wants all portable oxygen removed from his home against medical advise is willing to sign a from stating so. Please call to further discuss Ask caller their first and last name and relationship to the patient:Israel Cabrera [employer] Best time to call back: any Ok to leave a message: y Ok to send my- message: n Offered Appointment: n MA/Nurse/Filter Press Tender contacted via: Message: y Call: n Pager: n documented in this encounter Plan of Treatment Upcoming Encounters Date Type Department Care Team (Late st Contact Info) Description 08/31/2024 10:00 AM [facility] Hospital Encounter [place] [phone] Arrived documented as of this encounter Visit Diagnoses Diagnosis Chronic obstructive pulmonary disease, unspecified COPD type documented in this encounter Care Teams Envelope Press Operator Relationship Specialty Start Date End Date Ricki Traylor MD [facility] [place] [address] PCP - General General Internal Medicine 05/30/1710/09 documented as of this encounter
--- OUTSIDE RECORDS SUMMARY | 2024-06-16 15:33 | XMS_ITS | Encounter Summary ---
[place] [address] Care Team Providers Care Environmental Services Floor Tech Name Role Phone Ricki Traylor MD Primary Care Provider [phone] Encounter Details Date Type Department Care Team (Late st Contact Info) Description 05/26/2019 Orders Only Cardiology at [address] [phone] Social History Tobacco Use Types Packs/Day Years Used Date Smoking Tobacco: Former Cigarettes 1 04 09 545 - 8569 Smokeless Tobacco: Never Alcohol Use Standard Drinks/Week [...] AM EST Hospital Encounter Non-Invasive [place] [address] Arrived documented as of this encounter Procedures Procedure Name Priority Date/Time Associated Diagnosis Comments CARDIAC DEVICE CHECK - REMOTE SCHEDULED Routine 05/26/2019 3:21 AM EDT documented in this encounter Results * (ABNORMAL) Cardiac device check - Remote Scheduled (05/26/2019 3:21 AM EDT) Date Time Interrogation Session [id number] IDCO Type Interrogation Session Remote Scheduled IDCO Clinic Name [facility] IDCO Battery Date Time of Measurements [id number] IDCO Battery Status Beginning of Service IDCO Battery Remaining Longevity 78 mo IDCO Battery Remaining Percentage 100 % IDCO Episode Identifier APM-19 IDCO Episode Date Time IDCO Episode Type Category Periodic EGM IDCO Episode Vendor Type Category APMRT IDCO Episode Detection And Therapy Details Presenting EGM IDCO Episode Identifier [id number] IDCO Episode Date Time [id number] IDCO Episode Type Category Other IDCO Episode Vendor Type Category IDCO Episode Duration IDCO Episode Detection And Therapy Details RA Auto IDCO Episode Identifier [id number] IDCO Episode Date Time [id number] IDCO Episode Type Category Other IDCO Episode Vendor Type Category IDCO Episode Duration IDCO Episode Detection And Therapy Details RV Auto IDCO Episode Identifier ATR-7 IDCO Episode Date Time IDCO Episode Type Category AT/AF IDCO Episode Vendor Type Category ATR IDCO Episode Detection Interval Atrial 732 ms IDCO Episode Duration IDCO Episode Detection And Therapy Details ATR Avg V Rate in ATR: 82 bpm IDCO Episode Identifier ATR-6 IDCO Episode Date Time IDCO Episode Type Category AT/AF IDCO Episode Vendor Type Category ATR IDCO Episode Detection Interval Atrial 779 ms IDCO Episode Duration 4 s IDCO Episode Detection And Therapy Details ATR Avg V Rate in ATR: 69 bpm IDCO Episode Statistic Type Category VT IDCO Episode Statistic Vendor Type Category IDCO Episode Statistic Recent Count 0 IDCO Episode Statistic Recent Date Time Start 20180824 IDCO Episode Statistic Recent Date Time End 20190526 IDCO Episode Statistic Type Category SVT IDCO Episode Statistic Vendor Type Category SVT IDCO Episode Statistic Recent Count 0 IDCO Episode Statistic Recent Date Time Start 20180824 IDCO Episode Statistic Recent Date Time End 20190526 IDCO Episode Statistic Type Category VT IDCO Episode Statistic Vendor Type Category NSVT IDCO Episode Statistic Recent Count 0 IDCO Episode Statistic Recent Date Time Start 20180824 IDCO Episode Statistic Recent Date Time End 20190526 IDCO Episode Statistic Type Category AT/AF IDCO Episode Statistic Vendor Type Category ATR IDCO Episode Statistic Recent Count 3 IDCO Episode Statistic Recent Date Time Start 20180824 IDCO Episode Statistic Recent Date Time End 20190526 IDCO Episode Statistic Type Category Other IDCO Episode Statistic Vendor Type Category IDCO Episode Statistic Recent Count 0 IDCO Episode Statistic Recent Date Time Start 20180824 IDCO Episode Statistic Recent Date Time End 20190526 IDCO Zeferino Setting AT Mode Switch Mode [...] L311 IDCO Implantable Pulse Generator Serial Number [id number] IDCO Implantable Pulse Generator Cold Molding Press Operator [employer] IDCO Implantable Pulse Generator Implant Date 20170108 IDCO Implantable Lead Model 7741 IDCO Implantable Lead Serial Number [id number] IDCO Implantable Lead Cold Molding Press Operator [employer] IDCO Implantable Lead Implant Date IDCO Implantable Lead Polarity Type Bipolar Lead IDCO Implantable Lead Location Right Atrium IDCO Implantable Lead Model 108795 IDCO Implantable Lead Serial Number [id number] IDCO Implantable Lead Cold Molding Press Operator [employer] IDCO Implantable Lead Implant Date IDCO Implantable Lead Polarity Type Bipolar Lead IDCO Implantable Lead Location Right Ventricle IDCO Lead Channel Measurements Date and Time Start 20190524 IDCO Lead Channel Sensing Intrinsic Amplitude Mean 3.7 mV IDCO Lead Channel Sensing Polarity Bipolar IDCO Lead Channel Pacing Threshold Amplitude 0.6 V IDCO Lead Channel Pacing Threshold Pulse Width 0.4 ms IDCO Lead Channel Pacing Threshold Measurement Method Device Automatic IDCO Lead Channel Pacing Threshold Polarity Bipolar IDCO Lead Channel Impedance Value 684 ohms IDCO Lead Channel Impedance Polarity Bipolar IDCO Lead Channel Measurements Date and Time Start 20190524 IDCO Lead Channel Sensing Intrinsic Amplitude Mean 25.0(>) mV IDCO Lead Channel Sensing Polarity Bipolar IDCO Lead Channel Pacing Threshold Amplitude 1.4 V IDCO Lead Channel Pacing Threshold Pulse Width 0.4 ms IDCO Lead Channel Pacing Threshold Measurement Method Device Automatic IDCO Lead Channel Pacing Threshold Polarity Bipolar IDCO Lead Channel Impedance Value 732 ohms IDCO Lead Channel Impedance Polarity Bipolar IDCO Statistic Date Time Start 20180824 IDCO Statistic Date Time End 20190526 IDCO Zeferino Statistic Date Time Start 20180824 IDCO Zeferino Statistic Date Time End 20190526 IDCO Zeferino Statistic RA Percent Paced 35 % IDCO Zeferino Statistic RV Percent Paced 63 % IDCO Atrial Tachy Statistic Date Time Start 20180826 IDCO Atrial Tachy Statistic Date Time End 20190525 IDCO Atrial Tachy Statistic AT/AF [place] Percent 1(<) % IDCO Anatomical Region Laterality Modality Other 05/26/2019 3:21 AM EDT Physician Cardiology IMPLANTABLE CARD IAC DEVICE documented in this encounter Visit Diagnoses Not on filedocumented in this encounter Care Teams Environmental Services Floor Tech Relationship Specialty Start Date End Date Ricki Traylor MD [facility] [place] [address] PCP - General General Internal Medicine 05/30/1710/09 documented as of this encounter
--- OUTSIDE RECORDS SUMMARY | 2024-06-16 15:33 | XMS_ITS | Encounter Summary ---
Author Organization [facility] Address [facility] [place] [address] Care Team Providers Care Linen Sorter Name Role Phone Ricki Traylor MD Primary Care Provider [phone] Encounter Details Date Type Department Care Team (Late st Contact Info) Description 09/24/2019 Orders [place] [phone] Ricki Traylor MD [facility] [address] [facility] [place] [address] Social History Tobacco Use Types Packs/Day Years [...] AM EST Hospital Encounter Non-[place] [address] Arrived documented as of this encounter Visit Diagnoses Not on filedocumented in this encounter Care Teams Linen Sorter Relationship Specialty Start Date End Date Ricki Traylor MD [facility] [address] [facility] [address] PCP - General General Internal Medicine 05/30/1710/09 documented as of this encounter
--- OUTSIDE RECORDS SUMMARY | 2024-06-16 15:33 | XMS_ITS | Encounter Summary ---
Author Organization [facility] Address [place] [address] Care Team Providers Care Splunk Developer Name Role Phone Ricki Traylor MD Primary Care Provider [phone] Reason for Visit * Reason Comments Medication Refill Encounter Details Date Type Department Care Team (Late st Contact Info) Description 06/27/2019 Refill Cardiology at [address] [phone] Juan Jose Mills MD [facility] [address] Medication Refill Social History Tobacco Use Types [...] AM EST Hospital Encounter Non-[place] [phone] Arrived documented as of this encounter Visit Diagnoses Diagnosis Coronary artery disease without angina pectoris, unspecified vessel or lesion type, unspecified whether three affiliated or transplanted heart Aortic valve disease--- TAVR December 2016 Aortic valve disorders documented in this encounter Care Teams Splunk Developer Relationship Specialty Start Date End Date Ricki Traylor MD [facility] [place] [address] PCP - General General Internal Medicine 05/30/1710/09 documented as of this encounter
--- OUTSIDE RECORDS SUMMARY | 2024-06-16 15:33 | XMS_ITS | Encounter Summary ---
Author Organization [facility] [place] [address] Care Team Providers Care Competitive Intelligence Analyst Name Role Phone Ricki Traylor MD Primary Care Provider [phone] Reason for Visit * Reason Onset Date Comments Medication Problem 09/24/2019 Encounter Details Date Type Department Care Team (Late st Contact Info) Description 09/24/2019 [place]phone [place] [phone] La Navarro Medication Problem Social History Tobacco Use Types Packs/Day Years Used Date Smoking Tobacco: Former Cigarettes 1 25 1 955 - 5455 Smokeless Tobacco: Never Alcohol Use Standard Drinks/Week Comments No 0 (1 standard drink = 0.6 oz pur e alcohol) Sex and Gender Information Value Date Recorded Sex Assigned at Not on file Gender Identity Not on file Sexual Orientation Not on file documented as of this encounter Miscellaneous Notes * Telephone Encounter - La Navarro - 09/24/2019 10:30 AM EST Pharmacy or caller: Patient Phone Number: Medication: tiotropium-olodateroL (Stiolto Respimat) 2.5-2.5 mcg/actuation Mist Message: Patient states he was told different directions in the clinic for this medication, and is wondering if he can speak to someone about it. Patient also stated the pharmacy told him it was going to be $400, and he is very concerned with that laboy. Please call patient to discuss. Patient did not pick this medication up. documented in this encounter Plan of Treatment Upcoming Encounters Date Type Department Care Team (Late st Contact Info) Description 08/31/2024 10:00 AM EST Hospital Encounter [place] [address] Arrived documented as of this encounter Visit Diagnoses Not on filedocumented in this encounter Care Teams Competitive Intelligence Analyst Relationship Specialty Start Date End Date Ricki Traylor MD [facility] [place] [address] PCP - General General Internal Medicine 05/30/1710/09 documented as of this encounter
--- OUTSIDE RECORDS SUMMARY | 2024-06-16 15:33 | XMS_ITS | Encounter Summary ---
Author Organization [facility] Address [facility] [place] [address] Care Team Providers Care Control Panel Operator Name Role Phone Ricki Traylor MD Primary Care Provider [phone] Reason for Visit * Reason Comments Eye Exam Encounter Details Date Type Department Care Team (Late st Contact Info) Description 07/20/2019 8:45 AM EST Office [place] [address] Preeti Dela Cruz, OD [facility] [place] [address] Pseudophakia of both eyes; History of toxoplasmosis; Macular drusen, bilateral; 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 Do NOT use ???Visine or anything that says ???gets the red out?? . AM Drops (Use 4-6 times per day) - DAYTIME DROPS TheraTears Refresh GenTeal Systane PM Drops (Use once at night in both eyes before you go to bed) - NIGHT-TIME DROPS Refresh PM Systane Gel GenTeal Gel documented in this encounter Progress Notes * Preeti Dela Cruz, OD - 07/20/2019 8:45 AM EST Encounter Diagnoses Name Primary? Pseudophakia of both eyes ??? History of toxoplasmosis ??? Macular drusen, bilateral ??? 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 Fuchs' endothelial dystrophy ??? Astigmatism with presbyopia, bilateral Vikash Álvarez is a 78 y.o. with the following ophthalmic problems: Assessment and Plan: Fuchs Endothelial Dystrophy OD>>OS. Consulted with Dr Leyva (DOC) today. No evidence of corneal erosion. - Advised PF ATs QID-PRN OU and lubricating eddie QHS OU - RTC STAT with pain, vision loss, photophobia, redness - Establish care with Dr. Marte in 3 mos. Pseudophakia OU with visually significant PCO OD > OS - Refer for YAG capsulotomy consultation, in 3 mos or next available. - Patient understands that the initial visit is consultation only, not a procedural visit. H/O Toxoplasmosis OD, H/O RD - Pt ed re si/sx/risks of RD and to RTC STAT w/ increase in floaters, flashes, curtains/shades. Macular Drusen OU - Noted. Anterior & MGD-related Posterior Blepharitis OU contributing to Dry Eye OU - Advised lid hygiene with dilute baby shampoo or OcuSoft wipes & warm compress BID 5-10 min OUwith lid massage - Advised PF AT's Refresh, Systane or Thera Tears QID-PRN OU & Refesh PM eddie QHS OU. - Pt ed re chronicity of condition and need for continued lid maintenance. RTC w/ worsening sx. Presbyopia - OTC readers. - Findings and concerns discussed with Vikash and he expressed understanding. 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
--- OUTSIDE RECORDS SUMMARY | 2024-06-16 15:33 | XMS_ITS | Encounter Summary ---
Author Organization [facility] Address [facility] [place] [address] Care Team Providers Care Pelt Dropper Name Role Phone Ricki Traylor MD Primary Care Provider [phone] Reason for Visit * Reason Comments Skin Lesion * Consultation (Routine) - Specialty Diagnoses / Procedures Referred By Contac t Referred To Contact Dermatology Diagnoses Skin rash Daniel Torres PA [facility] [place] [address] [facility] [address] [place] [address] Referral ID Status Reason Start Date Expiration Date V isits Requested Visits Authorized [id number] Consult, Test & Treat 10/07/2018 10/07/2019 12 12 Encounter Details Date Type Department Care Team (Late st Contact Info) Description 02/01/2019 4:30 PM EDT Office Visit Dermatology at [facility] [address] [place] [phone] Cary Pandey MD [facility] [address] AZAL[facility] [place] [address] Stasis dermatitis of both legs Social History Tobacco Use Types Packs/Day Years [...] as of this encounter Progress Notes * Cary Pandey MD - 02/01/2019 4:30 PM EDT Images from the original note were not included. DERMATOLOGY - NEW PATIENT NOTE Date of service: 02/01/2019 Vikash Álvarez : 1940, 78 y.o. Chief Complaint: Chief Complaint Patient presents with ??? Skin Lesion HPI: Vikash Álvarez is a 78 y.o. male referred by Daniel Torres with the following concerns: Rash on bilateral lower legs. This is itchy and burning. Patient has tried treating with an insect repellant and sprayed his socks with this as well. This did not help. He was also prescribed a steroid cream which helped somewhat. Patient does not wear compression. He did have venous stripping on his left lower leg for a cardiac procedure. No other concerns. Relevant Skin History: - Okay to leave detailed message with results? yes - Skin cancer (including type): no Family History: Melanoma: no Relevant Social History: - - lives in [facility]. Meds: Current Outpatient Medications Medication Sig Dispense Refill ??? clopidogrel (PLAVIX) [...] distress. - Skin: Skin examination of the lower extremities was normal apart from findings listed below. Diagnosis/Skin findings/Assessment/Plan: # Stasis dermatitis: pink, scaly circumferential plaques on bilateral lower extremities with trace edema. Scar on left lower leg from prior vein stripping. - Discussed etiology and stressed need for moth exterminator compression and elevation - Rx: triamcinolone 0.1% oint BID for 5-7 days, then 2x weekly as maintenance - When not using steroid, regularly use emollient RTC: 3 months for follow up Note initiated by ESTEBAN SWEET LPN. I, ESTEBAN SWEET LPN, have performed the documentation for this encounter in the presence of and acting as a scribe for Cary Pandey MD. I performed the services which were documented by the scribe, and I agree with the accuracy of the documentation in this encounter. Cary Pandey MD Reviewed and signed by Cary Pandey MD Resident in Dermatology [facility] Patient seen in conjunction with staff motor vehicle emissions inspector: Angie Rubalcava MD Section of Dermatology [facility] * Harshil Rubalcava MD - 02/01/2019 4:30 PM EDT I directly supervised Dr. Cary Pandey during this office visit. Dr. Pandey presented the history andphysical exam to me. I then saw and examined this patient with Dr. Pandey. We reviewed the history andpertinent details and I confirmed the physical findings. I agree with the details of the history and physical exam as documented in Dr. Cooley note. HARSHIL RUBALCAVA MD Staff Physician documented in this encounter Plan of Treatment Upcoming Encounters Date Type Department Care Team (Late st Contact Info) Description 08/31/2024 10:00 AM EST Hospital Encounter Non[place] [address] Arrived documented as of this encounter Visit Diagnoses Diagnosis Stasis dermatitis of both legs Varicose veins of lower extremities with inflammation documented in this encounter Care Teams Pelt Dropper Relationship Specialty Start Date End Date Ricki Traylor MD [facility] [place] [address] PCP - General General Internal Medicine 05/30/1710/09 documented as of this encounter
--- OUTSIDE RECORDS SUMMARY | 2024-06-16 15:33 | XMS_ITS | Encounter Summary ---
Author Organization [facility] Address [facility] [place] [address] Care Team Providers Care Counter Server Name Role Phone Ricki Traylor MD Primary Care Provider [phone] Reason for Visit * Reason Onset Date Comments Medication Refill 09/22/2019 Lasix Encounter Details Date Type Department Care Team (Late st Contact Info) Description 09/22/2019 Refill Cardiology at [address] [phone] Juan Jose Mills MD [facility] [place] [address] Medication Refill (Lasix) Social History Tobacco Use Types Packs/Day Years [...] AM EST Hospital Encounter Non-[place] [phone] Arrived documented as of this encounter Visit Diagnoses Diagnosis Coronary artery disease without angina pectoris, unspecified vessel or lesion type, unspecified whether [place] or transplanted heart Aortic valve disease--- TAVR December 2016 Aortic valve disorders documented in this encounter Care Teams Counter Server Relationship Specialty Start Date End Date Ricki Traylor MD [facility] [place] [address] PCP - General General Internal Medicine 05/30/1710/09 documented as of this encounter
--- OUTSIDE RECORDS SUMMARY | 2024-06-16 15:34 | XMS_ITS | Encounter Summary ---
Author Organization [facility] Address [facility] [place] [address] Care Team Providers Care Bottom Presser Name Role Phone Rikci Traylor MD Primary Care Provider [phone] Encounter Details Date Type Department Care Team (Latest Contact Info) Description 01/15/2018 4:00 PM EDT Office Visit Cardiology at [address] [phone] Lola Freed, HYSTER MACHINE OPERATOR [facility] [place] [address] Coronary artery disease without angina pectoris, unspecified vessel or lesion type, unspecified whether [place] or transplanted heart; Essential hypertension; H/O diastolic dysfunction; Hyperlipidemia, unspecified hyperlipidemia type Social History Tobacco Use Types Packs/Day Years Used Date Smoking Tobacco: Former Cigarettes 1 25 Smokeless Tobacco: Never Alcohol Use Standard Drinks/Week Comments No 0 (1 standard drink = 0.6 oz pur e alcohol) Sex and Gender Information Value Date Recorded Sex Assigned at Not on file Gender Identity Not on file Sexual Orientation Not on file documented as of this encounter Last Filed Vital Signs Vital Sign Reading Time Taken Comments Blood Pressure 120/70 01/15/2018 3:47 PM EDT Pulse 62 01/15/2018 3:47 PM EDT Temperature - - Respiratory Rate - - Oxygen Saturation 90% 01/15/2018 3:47 PM EDT Inhaled Oxygen Concentration - - Weight 91.6 kg (202 lb) 01/15/2018 3:47 PM EDT Height 172.7 cm (5' 8) 01/15/2018 3:47 PM EDT Body Mass Index 30.71 01/15/2018 3:47 PM EDT documented in this encounter Patient Instructions * Patient Instructions* Lola Freed APRN - 01/15/2018 4:00 PM EDT 1. Continue current medication regimen. No changes made today. 2. Follow up in 4 months (May). documented in this encounter Progress Notes * Lola Freed APRN - 01/15/2018 4:00 PM EDT Images from the original note were not included. [facility] [place] [address] [address] General Cardiology Follow Up Subjective: Patient ID: Vikash Álvarez is a 77 y.o. male. CC: Follow up of recent hospitalization HPI: 77 y.o. male with past medical history of significant for 4V CABG (1994) with cardiac catheterization at [facility] in 2013 with PCI to SVG-RPDA, NSTEMI in 08/2016 found to have in-stent restenosis and had repeat PCI to mSVG-RPDA, TAVR 12/2016, pacemaker for complete heart block, COPD, HTN, andhyperlipidemia. INTERIM: No hospitalizations or ED visits. Seen by Dr. Merino with pulmonary who started him on LABA and LAMA inhalers that ended up making him cough more. These were subsequently discontinued. He was treated by Ricki Traylor MD for cough with a 10 day course of doxy. TODAY: Overall, feels a bit better. His walking tolerance has improved. He currently denies any active chest pain, shortness of breath at rest, palpitations, near-syncope, or syncopal events. He is wondering when he should have his pacemaker checked next, as he doesn't think this has been done since last summer. Patient Active Problem List Diagnosis ??? H/O diastolic dysfunction Assessment & Plan Note: Has +1 bilateral edema on exam, along with exertional shortness of breath which is likely mostly related to his advancing COPD.Continues on Lasix 20 mg once daily. Tolerated this dose well.. Advised him to check his weights daily and to call the clinic if he notices an increase of 3 lbs in a day or5 lbs in a week F/u in [address] ??? ST elevation (STEMI) myocardial infarction involving left anterior descending coronary artery ??? Pacemaker ??? SSS (sick sinus syndrome) ??? Vitamin D deficiency ??? Epidermoid cyst of skin ??? Essential hypertension Assessment & Plan Note: BP: (120)/(70) No changes in his medications. ??? Hyperlipidemia Assessment & Plan Note: Continues on current statin dose, no changes. Should have lipids checked at next visit. ??? Non-ST elevated myocardial infarction ??? Aortic valve disease--- TAVR December 2016 Overview Note: December 2016: Ev[facility]ut [facility] at [facility] 05/19/17 echo: no prosthetic aortic valve regurg ??? Coronary disease---hx of CABG Overview Note: 1994: 4v CABG 2014: PCI of SVG 05/19/17: [facility] with PCI to mid SVG--RPDA Assessment & Plan Note: He has had no chest pain or jaw pain. No use of nitro since his discharge. He continues on aspirin,plavix, metoprolol, lisinopril, and atorvstatin. He should remain on DAPT therapy for 12 months (till 05/2018). He continues to struggle with exertional shortness of breath, though this has improved and his activity tolerance is slightly better. He continues to follow pulmonary for his advanced lung disease. Will plan to have him return for follow up in 4 months. ??? Chronic obstructive pulmonary disease ??? Prostate cancer--- treated with radical prostatectomy ROS: See HPI Constitutional: - fatigue, - fever, - chills Respiratory: + exertional shortness of breath, - cough, - apnea, - wheezing Cardiovascular: - chest pain, - palpitations, - unusual rates Gastrointestinal: - nausea, - vomiting, - abdominal pain, - diarrhea Neurological: - lightheadedness, - dizziness, - syncope, - weakness Psychiatric: - anxious Medications: Current Outpatient Prescriptions Medication Sig Dispense Refill ??? furosemide (LASIX) 20 mg Tablet Take 1 tablet by mouth daily. 90 tablet 3 ??? acetaminophen (TYLENOL) 325 mg Tablet Take 650 mg by mouth every 6 hours as needed. ??? atorvastatin (LIPITOR) 40 mg Tablet Take 1 tablet by mouth every evening. 90 tablet 3 ??? lisinopril (PRINIVIL;ZESTRIL) 5 mg Tablet Take 1 tablet by mouth daily. 90 tablet 3 ??? clopidogrel (PLAVIX) 75 mg Tablet Take 1 tablet by mouth daily. 90 tablet 3 ??? aspirin (ASPIRIN) 81 mg Tablet, Chewable Take 81 mg by mouth daily. 30 tablet 3 ??? meTOPROLOL tartrate (LOPRESSOR) 50 mg Tablet Take 1 tablet by mouth 2 times daily. 180 tablet 3 Objective: Vitals: Vitals: 01/15/18 1547 BP: 120/70 BP Location (NBP): Left arm Patient Position: Sitting BP Cuff Sizes: Adult (25-34 cm) Pulse: 62 SpO2: 90% Weight: 91.6 kg (202 lb) Height: 172.7 cm (5' 8) Physical Exam: General- No acute distress, sitting comfortably in exam room chair HEENT- Head atraumatic, normocephalic Skin- Warm, dry, and intact Neck- No JVD noted Cardiovascular- S1/S2 regular rate and rhythm. No murmur, rub or gallop Lungs- Diminished lung sounds at the bases Extremities- Pulses equal bilaterally. +1 bilateral edema noted Neuro- A&Ox3 Diagnostics: Echo 05/19/17: SUMMARY: 1. The left ventricular chamber size is normal. Mild concentric left ventricular hypertrophy is observed. Basal septal hypertrophy is observed. There is no evidence of LVOT obstruction. The quantitative left ventricular ejection fraction by biplane Holder's method is 65%. There are no left ventricular segmental wall motion abnormalities. 2. The left atrium is mildly dilated. 3. Right ventricular chamber size, wall thickness, and systolic function are within normal limits. A pacemaker wire is visualized in the right ventricle. 4. A bio-prosthetic aortic valve is present (TAVR). The bio-prosthetic aortic valve appears well seated with normal function. There is no prosthetic aortic valve regurgitation present. Peak velocity across the aortic vavle is 2 m/sec. 5. There is trace mitral regurgitation present. 6. There is trace tricuspid regurgitation present. 7. The pericardium appears normal and there is no evidence of a pericardial effusion. 8. The aortic root is normal in size. 9. Please see full echo report. Left heart cath 05/19/17: Conclusions: * Three vessel coronary artery disease (LAD, LCX and RCA) * Obstructive disease of the saphenous vein graft to the RPDA * Patent left internal mammary artery graft to the LAD * Patent saphenous vein graft to the OM1 * Successful stent insertion of the mid portion of the segment of the SVG between origin and RPDA * Recommend continuing clopidogrel 75 mg PO daily for 12 months (see DAPT Recommendations above for more information.) Assessment and Plan: 77 y.o. with medical history significant for significant for 4V CABG (1994) with cardiac catheterization at [facility] in 2013 with PCI to SVG-RPDA, NSTEMI in 08/2016 found to have in-stent restenosis and had repeat PCI to mSVG-RPDA, TAVR 12/2016, pacemaker for complete heart block, COPD, HTN, and hyperlipidemia. Plan: Problem List Items Addressed This Visit Coronary disease---hx of CABG (Chronic) He has had no chest pain or jaw pain. No use of nitro since his discharge. He continues on aspirin,plavix, metoprolol, lisinopril, and atorvstatin. He should remain on DAPT therapy for 12 months (till 05/2018). He continues to struggle with exertional shortness of breath, though this has improved and his activity tolerance is slightly better. He continues to follow pulmonary for his advanced lung disease. Will plan to have him return for follow up in 4 months. Relevant Orders Lipid Panel Essential hypertension (Chronic) BP: (120)/(70) No changes in his medications. Hyperlipidemia (Chronic) Continues on current statin dose, no changes. Should have lipids checked at next visit. Relevant Orders Lipid Panel H/O diastolic dysfunction Has +1 bilateral edema on exam, along with exertional shortness of breath which is likely mostly related to his advancing COPD.Continues on Lasix 20 mg once daily. Tolerated this dose well.. Advised him to check his weights daily and to call the clinic if he notices an increase of 3 lbs in a day or5 lbs in a week F/u in 4 months. Lola Freed APRN General Cardiology 01/15/2018 Patient Instructions 1. Continue current medication regimen. No changes made today. 2. Follow up in 4 months (May). documented in this encounter Miscellaneous Notes * Assessment & Plan Note - Lola Freed APRN - 01/15/2018 5:11 PM EDT Associated Problem(s): Hyperlipidemia Continues on current statin dose, no changes. Should have lipids checked at next visit. * Assessment & Plan Note - Lola Freed APRN - 01/15/2018 5:09 PM EDT Associated Problem(s): H/O diastolic dysfunction (Deleted) Has +1 bilateral edema on exam, along with exertional shortness of breath which is likely mostly related to his advancing COPD.Continues on Lasix 20 mg once daily. Tolerated this dose well.. Advised him to check his weights daily and to call the clinic if he notices an increase of 3 lbs in a day or5 lbs in a week F/u in 4 months. * Assessment & Plan Note - Lola Freed APRN - 01/15/2018 5:09 PM EDT Associated Problem(s): Essential hypertension (Deleted) BP: (120)/(70) No changes in his medications. * Assessment & Plan Note - Lola Freed APRN - 01/15/2018 5:06 PM EDT Associated Problem(s): Coronary arteriosclerosis He has had no chest pain or jaw pain. No use of nitro since his discharge. He continues on aspirin,plavix, metoprolol, lisinopril, and atorvstatin. He should remain on DAPT therapy for 12 months (till 05/2018). He continues to struggle with exertional shortness of breath, though this has improved and his activity tolerance is slightly better. He continues to follow pulmonary for his advanced lung disease. Will plan to have him return for follow up in 4 months. documented in this encounter Plan of Treatment Upcoming Encounters Date Type Department Care Team (Late st Contact Info) Description 08/31/2024 10:00 AM EST Hospital Encounter Non-[place] [address] Arrived documented as of this encounter Visit Diagnoses Diagnosis Coronary artery disease without angina pectoris, unspecified vessel or lesion type, unspecified whether [place] or transplanted heart Essential hypertension Unspecified essential hypertension H/O diastolic dysfunction Personal history of other diseases of circulatory system Hyperlipidemia, unspecified hyperlipidemia type documented in this encounter Care Teams Bottom Presser Relationship Specialty Start Date End Date Ricki Traylor MD [facility] [place] [address] PCP - General General Internal Medicine 05/30/1710/09 documented as of this encounter
--- OUTSIDE RECORDS SUMMARY | 2024-06-16 15:34 | XMS_ITS | Encounter Summary ---
Author Organization [facility] Address [facility] [place] [address] Care Team Providers Care Real Estate Sales Supervisor Name Role Phone Ricki Traylor MD Primary Care Provider [phone] Reason for Visit * Reason Onset Date Comments Medication Refill 08/18/2018 Encounter Details Date Type Department Care Team (Late st Contact Info) Description 08/18/2018 Ref[place] [address] Brittany Patricia, [place] Social History Tobacco Use Types Packs/Day Years [...] AM EST Hospital Encounter Non[place] [phone] Arrived documented as of this encounter Visit Diagnoses Not on filedocumented in this encounter Care Teams Real Estate Sales Supervisor Relationship Specialty Start Date End Date Ricki Traylor MD [facility] GENER[facility] [place] [address] PCP - General General Internal Medicine 05/30/1710/09 documented as of this encounter
--- OUTSIDE RECORDS SUMMARY | 2024-06-16 15:34 | XMS_ITS | Encounter Summary ---
Author Organization [facility] [place] [address] Care Team Providers Care Music Therapy Specialist Name Role Phone Ricki Traylor MD Primary Care Provider [phone] Encounter Details Date Type Department Care Team (Late st Contact Info) Description 06/16/2018 External Results Cardiology at [address] [phone] Social History Tobacco Use Types Packs/Day Years Used Date Smoking Tobacco: Former Cigarettes 1 04 09 [phone] Smokeless Tobacco: Never Alcohol Use [...] AM EST Hospital Encounter [place] [phone] Arrived documented as of this encounter Procedures Procedure Name Priority Date/Time Associated Diagnosis Comments EP DEVICE SCAN Routine 05/20/2018 documented in this encounter Results * Scan Doc: EP Device (05/20/2018) Anatomical Region Laterality Modality Other Historical Provider MD MCMAHON MGR SCAN EX T ORDR/RSLT documented in this encounter Visit Diagnoses Not on filedocumented in this encounter Care Teams Music Therapy Specialist Relationship Specialty Start Date End Date Ricki Traylor MD [facility] [place] [address] PCP - General General Internal Medicine 05/30/1710/09 documented as of this encounter
--- OUTSIDE RECORDS SUMMARY | 2024-06-16 15:34 | XMS_ITS | Encounter Summary ---
[place] [address] Care Team Providers Care Elevator Dispatcher Name Role Phone Ricki Traylor MD Primary Care Provider [phone] Encounter Details Date Type Department Care Team (Late st Contact Info) Description 05/20/2018 Orders Only Cardiology at [address] [address] Social History Tobacco Use Types Packs/Day Years [...] AM EST Hospital Encounter Non-[place]vasive [place] [address] Arrived documented as of this encounter Procedures Procedure Name Priority Date/Time Associated Diagnosis Comments CARDIAC DEVICE CHECK - REMOTE SCHEDULED Routine 05/20/2018 2:55 PM EDT documented in this encounter Results * (ABNORMAL) Cardiac device check - Remote Scheduled (05/20/2018 2:55 PM EDT) Date Time Interrogation Session [id number] IDCO Type Interrogation Session Remote Scheduled IDCO Clinic Name [facility] IDCO Battery Date Time of Measurements [id number] IDCO Battery Status Beginning of Service IDCO Battery Remaining Longevity 102 mo IDCO Battery Remaining Percentage 100 % IDCO Episode Identifier APM-12 IDCO Episode Date Time [id number] IDCO Episode Type Category Periodic EGM IDCO Episode Vendor Type Category APMRT IDCO Episode Detection And Therapy Details Presenting EGM IDCO Episode Identifier [id number] IDCO Episode Date Time IDCO Episode Type Category Other IDCO Episode Vendor Type Category IDCO Episode Duration IDCO Episode Detection And Therapy Details RA Auto IDCO Episode Identifier RYQ- IDCO Episode Date Time IDCO Episode Type Category Other IDCO Episode Vendor Type Category TAMIKO IDCO Episode Detection Interval Ventricular 1,200 ms IDCO Episode Detection And Therapy Details Q IDCO Episode Identifier Q- IDCO Episode Date Time IDCO Episode Type Category Other IDCO Episode Vendor Type Category TAMIKO IDCO Episode Detection Interval Ventricular 1,200 ms IDCO Episode Duration 2,270 s IDCO Episode Detection And Therapy Details IDCO Episode Identifier Q-49 IDCO Episode Date Time IDCO Episode Type Category Other IDCO Episode Vendor Type Category TAMIKO IDCO Episode Detection Interval Ventricular 1,154 ms IDCO Episode Duration 751 s IDCO Episode Detection And Therapy Details Q IDCO Episode Identifier Q- IDCO Episode Date Time IDCO Episode Type Category Other IDCO Episode Vendor Type Category TAMIKO IDCO Episode Detection Interval Ventricular 1,176 ms IDCO Episode Duration 38 s IDCO Episode Detection And Therapy Details IDCO Episode Identifier Q- IDCO Episode Date Time IDCO Episode Type Category Other IDCO Episode Vendor Type Category TAMIKO IDCO Episode Detection Interval Ventricular 1,224 ms IDCO Episode Duration 52 s IDCO Episode Detection And Therapy Details IDCO Episode Identifier Q-46 IDCO Episode Date Time IDCO Episode Type Category Other IDCO Episode Vendor Type Category TAMIKO IDCO Episode Detection Interval Ventricular 1,034 ms IDCO Episode Duration 54 s IDCO Episode Detection And Therapy Details Q IDCO Episode Identifier RYMIQ-45 IDCO Episode Date Time IDCO Episode Type Category Other IDCO Episode Vendor Type Category TAMIKO IDCO Episode Detection Interval Ventricular 845 ms IDCO Episode Duration 40 s IDCO Episode Detection And Therapy Details RYMIQ IDCO Episode Identifier [id number] IDCO Episode Date Time IDCO Episode Type Category Other IDCO Episode Vendor Type Category TAMIKO IDCO Episode Detection Interval Ventricular 1,071 ms IDCO Episode Duration 55 s IDCO Episode Detection And Therapy Details RYMIQ IDCO Episode Identifier RYTHMIQ-43 IDCO Episode Date Time IDCO Episode Type Category Other IDCO Episode Vendor Type Category TAMIKO IDCO Episode Detection Interval Ventricular 1,176 ms IDCO Episode Duration 43 s IDCO Episode Detection And Therapy Details RYMIQ IDCO Episode Identifier [id number]-42 IDCO Episode Date Time IDCO Episode Type Category Other IDCO Episode Vendor Type Category TAMIKO IDCO Episode Detection Interval Ventricular 1,176 ms IDCO Episode Duration 127 s IDCO Episode Detection And Therapy Details RYMIQ IDCO Episode Identifier [id number] IDCO Episode Date Time IDCO Episode Type Category Other IDCO Episode Vendor Type Category TAMIKO IDCO Episode Detection Interval Ventricular 1,176 ms IDCO Episode Duration 769 s IDCO Episode Detection And Therapy Details RYMIQ IDCO Episode Identifier [id number]-448 IDCO Episode Date Time IDCO Episode Type Category Other IDCO Episode Vendor Type Category IDCO Episode Duration IDCO Episode Detection And Therapy Details RV Auto IDCO Episode Statistic Type Category VT IDCO Episode Statistic Vendor Type Category IDCO Episode Statistic Recent Count 0 IDCO Episode Statistic Recent Date Time Start 20180204 IDCO Episode Statistic Recent Date Time End 20180520 IDCO Episode Statistic Type Category SVT IDCO Episode Statistic Vendor Type Category SVT IDCO Episode Statistic Recent Count 0 IDCO Episode Statistic Recent Date Time Start 20180204 IDCO Episode Statistic Recent Date Time End 20180520 IDCO Episode Statistic Type Category VT IDCO Episode Statistic Vendor Type Category NSVT IDCO Episode Statistic Recent Count 0 IDCO Episode Statistic Recent Date Time Start 20180204 IDCO Episode Statistic Recent Date Time End 20180520 IDCO Episode Statistic Type Category AT/AF IDCO Episode Statistic Vendor Type Category ATR IDCO Episode Statistic Recent Count 0 IDCO Episode Statistic Recent Date Time Start 20180204 IDCO Episode Statistic Recent Date Time End 20180520 IDCO Episode Statistic Type Category Other IDCO Episode Statistic Vendor Type Category IDCO Episode Statistic Recent Count 0 IDCO Episode Statistic Recent Date Time Start 20180204 IDCO Episode Statistic Recent Date Time End 20180520 IDCO Zeferino Setting AT Mode Switch Mode DDI IDCO Zeferino Setting AT Mode Switch Rate 170 {beats}/ min IDCO Zeferino Setting Mode (NBG Code) DDDR IDCO Zeferino Setting Lower Rate Limit 60 {beats}/ min IDCO Zeferino Setting Maximum Tracking Rate 130 {beats}/ min IDCO Zeferino Setting Maximum Sensor Rate 130 {beats}/ min IDCO Zeferino Setting FELICITY Delay High 150 ms IDCO Zeferino Setting PAV Delay High 180 ms IDCO Zone Setting Type Category VT [...] Bipolar IDCO Lead Channel Setting Pacing Amplitude 2.2 V IDCO Lead Channel Setting Pacing Pulse Width 0.4 ms IDCO Lead Channel Setting Pacing Capture Mode Fixed Pacing IDCO Lead Channel Setting Pacing Polarity Bipolar IDCO Zeferino Setting Sensor Type Accelerometer IDCO Implantable Pulse Generator Type Pacemaker IDCO Implantable Pulse Generator Model L311 IDCO Implantable Pulse Generator Serial Number [id number] IDCO Implantable Pulse Generator Green Marketing Analyst [employer] IDCO Implantable Pulse Generator Implant Date 20170108 IDCO Implantable Lead Model 7741 IDCO Implantable Lead Serial Number [id number] IDCO Implantable Lead Green Marketing Analyst [employer] IDCO Implantable Lead Implant Date IDCO Implantable Lead Polarity Type Bipolar Lead IDCO Implantable Lead Location Right Atrium IDCO Implantable Lead Model [id number] IDCO Implantable Lead Serial Number [id number] IDCO Implantable Lead Green Marketing Analyst [employer] IDCO Implantable Lead Implant Date IDCO Implantable Lead Polarity Type Bipolar Lead IDCO Implantable Lead Location Right Ventricle IDCO Lead Channel Measurements Date and Time Start 20180519 IDCO Lead Channel Sensing Intrinsic Amplitude Mean 3.2 mV IDCO Lead Channel Sensing Polarity Bipolar IDCO Lead Channel Pacing Threshold Amplitude 0.6 V IDCO Lead Channel Pacing Threshold Pulse Width 0.4 ms IDCO Lead Channel Pacing Threshold Measurement Method Device Automatic IDCO Lead Channel Pacing Threshold Polarity Bipolar IDCO Lead Channel Impedance Value 552 ohms IDCO Lead Channel Impedance Polarity Bipolar IDCO Lead Channel Measurements Date and Time Start 20180519 IDCO Lead Channel Measurements Date and Time End 20180520 IDCO Lead Channel Sensing Intrinsic Amplitude Mean mV IDCO Lead Channel Sensing Polarity Bipolar IDCO Lead Channel Pacing Threshold Amplitude V IDCO Lead Channel Pacing Threshold Measurement Method Device Automatic IDCO Lead Channel Pacing Threshold Polarity Bipolar IDCO Lead Channel Impedance Value 746 ohms IDCO Lead Channel Impedance Polarity Bipolar IDCO Statistic Date Time Start 20180204 IDCO Statistic Date Time End 20180520 IDCO Zeferino Statistic Date Time Start 20180204 IDCO Zeferino Statistic Date Time End 20180520 IDCO Zeferino Statistic RA Percent Paced 35 % IDCO Zeferino Statistic RV Percent Paced 10 % IDCO Atrial Tachy Statistic Date Time Start 20180206 IDCO Atrial Tachy Statistic Date Time End 20180520 IDCO Atrial Tachy Statistic AT/AF Parker Percent 0 % IDCO Anatomical Region Laterality Modality Other 05/20/2018 2:55 PM EDT Physician Cardiology IMPLANTABLE CARD IAC DEVICE documented in this encounter Visit Diagnoses Not on filedocumented in this encounter Care Teams Elevator Dispatcher Relationship Specialty Start Date End Date Ricki Traylor MD [facility] GENERAL [place] [address] PCP - General Internal Medicine 05/30/1710/09 documented as of this encounter
--- OUTSIDE RECORDS SUMMARY | 2024-06-16 15:34 | XMS_ITS | Encounter Summary ---
Author Organization [facility] [place] [address] Care Team Providers Care Human Service Specialist Name Role Phone Ricki Traylor MD Primary Care Provider [phone] Reason for Referral * Physical Therapy (Routine) - Closed Specialty Diagnoses / Procedures Referred By Charito romero Referred To Contact Diagnoses COPD, moderate Ricki Traylor MD [facility] GENERAL [place] [address] Rehab, [address] [address] Referral ID Status Reason Start Date Expiration Date V isits Requested Visits Authorized [id number] Closed Evaluate and Treat 07/11/2017 01/07/2018 12 12 Reason for Visit * Reason Onset Date Comments Referral 07/10/2017 Encounter Details Date Type Department Care Team (Late st Contact Info) Description 07/10/2017 Telephone [place] [address] Chani Gaspar Referral Social History Tobacco Use Types Packs/Day Years [...] encounter Miscellaneous Notes * Telephone Encounter - Loren Najera RN - 07/10/2017 2:12 PM EST Returned patient's call Confirmed name and date of Patient states when he saw Dr. Traylor a few weeks ago they talked about he doing some Physical Therapy to get him some air. He states at the time he didn't want to go to PT But, states he isn't improving and would like to try some Physical Therapy. He requested a referralbe sent to [facility] Physical Therapy This nurse stated she would send his request along to Dr. Traylor and once the referral was faxed he would hear from [facility] PT to schedule an appointment. Patient will call this office if he doesn't hear from [facility] PT Called [facility] PT, spoke with Yuliana to obtain fax number Referral prepared for Dr. Traylor's review and approval * Telephone Encounter - Chani Gaspar - 07/10/2017 1:31 PM EST Message: Pt called stating Dr. Traylor has suggested he see someone for PT and the pt would like to know who he recommends, he lives up in the [facility] area. He was thinking possible [facility] Re[facility]? Caller and relationship (if other than patient-full name): self Best time to call back: any Ok to leave a message: [yes] Ok to send my- message: [] Offered Appointment: MA/Nurse contacted via: Message: Call: Pager: documented in this encounter Plan of Treatment Upcoming Encounters Date Type Department Care Team (Late st Contact Info) Description 08/31/2024 10:00 AM EST Hospital Encounter Non[place] [address] Arrived Scheduled Referrals Name Type Priority Associated Diagnoses Orde r Schedule Referral to Physical Therapy Outpatient Referral Routine COPD, moderate Ordered: 07/11/2017 documented as of this encounter Visit Diagnoses Diagnosis COPD, moderate Chronic airway obstruction, not elsewhere classified documented in this encounter Care Teams Human Service Specialist Relationship Specialty Start Date End Date Ricki Traylor MD [facility] GENERAL [place] [address] PCP - General General Internal Medicine 05/30/1710/09 documented as of this encounter
--- OUTSIDE RECORDS SUMMARY | 2024-06-16 15:34 | XMS_ITS | Encounter Summary ---
[place] [address] Care Team Providers Care Recruiter Specialist Name Role Phone Ricki Traylor MD Primary Care Provider [phone] Reason for Visit * Reason Onset Date Comments Medication Refill 05/19/2018 Encounter Details Date Type Department Care Team (Late st Contact Info) Description 05/19/2018 Ref[place] [phone] Ilene Reilly Social History Tobacco Use Types Packs/Day Years [...] encounter Miscellaneous Notes * Telephone Encounter - Ilene Reilly - 05/19/2018 1:52 PM EDT Patient is out please [place], under the impression pharmacy had requested these meds for him. documented in this encounter Plan of Treatment Upcoming Encounters Date Type Department Care Team (Late st Contact Info) Description 08/31/2024 10:00 AM EST Hospital Encounter Non-[place]vasive [place] [phone] Arrived documented as of this encounter Visit Diagnoses Not on filedocumented in this encounter Care Teams Recruiter Specialist Relationship Specialty Start Date End Date Ricki Traylor MD [facility] GENER[facility] [place] [address] PCP - General General Internal Medicine 05/30/1710/09 documented as of this encounter
--- OUTSIDE RECORDS SUMMARY | 2024-06-16 15:34 | XMS_ITS | Encounter Summary ---
Author Organization [facility] [place] [address] Care Team Providers Care Chief Analytics Officer Name Role Phone Ricki Traylor MD Primary Care Provider [phone] Encounter Details Date Type Department Care Team (Late st Contact Info) Description 05/25/2018 11:30 AM EDT Office Visit Cardiology at [address] [phone] Mercedes Land RN Bradycardia Social History Tobacco Use Types Packs/Day Years Used Date Smoking Tobacco: Former Cigarettes 1 25 1 238 - 6000 Smokeless Tobacco: Never Alcohol Use Standard Drinks/Week Comments No 0 (1 standard drink = 0.6 oz pur e alcohol) Sex and Gender Information Value Date Recorded Sex Assigned at Not on file Gender Identity Not on file Sexual Orientation Not on file documented as of this encounter Progress Notes * Mercedes Land RN - 05/25/2018 11:30 AM EDT Images from the original note were not included. Clinical Electrophysiology Device Service Note Vikash Álvarez is a 77 y.o. male who presents today to see Dr. Mills and stated that he felt palpitations. His device is being checked at the request of Dr. Mills. No episodes were noted in his history. He had a pacemaker implanted January 08, 2017 for SSS. 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 He also has history of COPD, CVA, HTN,STEMI, Coronary Stent and visual disturbance. PCP: Ricki Traylor MD Cash Register Servicer: Dr Mills Final Parameters at implant:( Please obtain lead info at next visit.) Ventricular electrode: Atrial electrode: Pulse generator: Accolade MRI L311 Serial # [id number] January 08, 2017 Settings: DDDR with Rythmiq ON 60/130 Underlying rhythm: SR 68 bpm Atrial Lead: P wave: 4.0 mV Impedance: 576 ohms Threshold: 0.8 V @ 0.4 ms Ventricular Lead: R wave: paced at 40 bpm Impedance: 775 ohms Threshold: 1.1 V @ 0.4 ms Heart rate histograms: Good distribution with some left shifting heart rarely gets above 90 bpm Pacing percentages: AP 36 %; SIGNAL REPAIRER 13 % Mode switch episodes: none VHR: none PACs have decreased from 11.9 to 3.3K PVCs have decreased 14.1K to 235 Battery voltage: Est 8.5 years remaining Wound assessment: Well healed with good coverage Reprogramming: Minute ventilation was turned ON. Plan: Remote in 3 mos. RTC in 1 year- Remote transferred Provider: Mercedes Land RN Attending: Dr Franz Staff addendum: Findings and assessment of Aracely Land reviewed after this visit was complete. It appears that Mr Álvarze has had sudden increase in RV pacing from 10% to 100% as of about 05/11/18. It is not clear why this has occurred since underlying rhythm was not assessed during this visit. It is highly possible that his exercise intolerance and palpitations are a result of this change. We will plan to bring this patient back in to see an EP or EP PA to evaluate underlying rhythm to assess if there may be programming that can address this change. Alternatively, we could discuss BiV upgrade if the RV pacing is unavoidable and symptomatic. Prachi Franz MD 05/27/2018 3:28 PM documented in this encounter Plan of Treatment Upcoming Encounters Date Type Department Care Team (Late st Contact Info) Description 08/31/2024 10:00 AM EST Hospital Encounter [place] [address] Arrived documented as of this encounter Visit Diagnoses Diagnosis Bradycardia Other specified cardiac dysrhythmias documented in this encounter Care Teams Chief Analytics Officer Relationship Specialty Start Date End Date Ricki Traylor MD [facility] [place] [address] PCP - General General Internal Medicine 05/30/1710/09 documented as of this encounter
--- OUTSIDE RECORDS SUMMARY | 2024-06-16 15:34 | XMS_ITS | Encounter Summary ---
Author Organization [facility] Address [facility] [place] [address] Care Team Providers Care Link Fabric Machine Operator Name Role Phone Ricki Traylor MD Primary Care Provider [phone] Reason for Visit * Reason Comments Establish Care Had a heart attack 2 weeks ago, here to establish care for overall health and medication review Encounter Details Date Type Department Care Team (Latest Contact Info) Description 06/04/2017 10:00 AM EDT Office [place] [address] Shayla Velasquez LABOURERS [facility] [place] [address] ST elevation (STEMI) myocardial infarction involving left anterior descending coronary artery; Rash; Coronary artery disease, angina presence unspecified, unspecified vessel or lesion type, unspecified whether [place] or transplanted heart; Aortic valve disease--- TAVR December 2016; Essential hypertension; Hyperlipidemia, unspecified hyperlipidemia type; Pacemaker Social History Tobacco Use Types Packs/Day Years Used Date Smoking Tobacco: Former Cigarettes 25 Smokeless Tobacco: Never Alcohol Use Standard Drinks/Week Comments No 0 (1 standard drink = 0.6 oz pur e alcohol) Sex and Gender Information Value Date Recorded Sex Assigned at Not on file Gender Identity Not on file Sexual Orientation Not on file documented as of this encounter Last Filed Vital Signs Vital Sign Reading Time Taken Comments Blood Pressure 113/59 06/04/2017 9:56 AM EDT Pulse 59 06/04/2017 9:56 AM EDT Temperature 36.4 ??C (97.6 ??F) 06/04/2017 9:56 AM ED T Respiratory Rate 16 06/04/2017 9:56 AM EDT Oxygen Saturation 92% 06/04/2017 9:56 AM EDT Inhaled Oxygen Concentration - - Weight 97.5 kg (215 lb) 06/04/2017 9:56 AM EDT Height 170.2 cm (5' 7) 06/04/2017 9:56 AM EDT Body Mass Index 33.67 06/04/2017 9:56 AM EDT documented in this encounter Progress Notes * Shayla Velasquez, LABOURERS - 06/04/2017 10:00 AM EDT Images from the original note were not included. Subjective: Patient ID: Vikash Álvarez is a 76 y.o. male. Chief Complaint Patient presents with ??? Establish Care Had a heart attack 2 weeks ago, here to establish care for overall health and medication review Feeling tired but is able to walk a bit farther before he gets SOB. He is not doing cardiac rehab but has f/u with Dr. Sam 06/24. He lives over an hour away in [place], [place] and would consider doing rehab closter to there. He has attended cardiac rehab twice before. ?? COPD: Diagnosed after he had his AV replaced. He doesn't take any medication for this. Last PFTsMay of this year. He is on 2L of oxygen at home. His pulmonary doctor was Dr. Aparicio. Different inhalers either made him nauseous or cough or didn't help his symptoms ?? TAVR: Done end of December of 2016. Needed a pacemake installed as a complication of the surgery as well. ?? CAD/HLD: Diagnosed in 1994 [address] NSTEM[address] Had [address] CABG done. Needed stent placement in 2014.Takes plavix 75 mg, metoprolol 50 mg BID, aspirin 81 mg and atorva 40 mg ?? Prostate Cancer: Had radical prostatectomy in 1999. Dr. Stephen was his urologist and he saw him last about a year ago. He gets up at night 4-10 times to urinate and this is his baseline. Suggestions for treating this were suggested by his urologist but Ramón didn't want to do them. He denies incon tinence but doesn't have much warning before he has to go. His PSA is elevated since surgery. Stream is weak since surgery. ?? HTN: Takes lisinopril 5 mg. Started this after TAVR. ?? Lumbar fusion: Done 2016. His back has been better since. ?? 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 Review of Systems Constitutional: Negative for chills and fever. HENT: Positive for rhinorrhea (chronically). Negative for sinus pressure and sore throat. Respiratory: Positive for cough (dry cough with lying down). Cardiovascular: Negative for chest pain, palpitations and leg swelling. No PND or orthopnea. Sleeps with oxygen on since stent placement Gastrointestinal: Negative for abdominal pain, blood in stool, nausea and vomiting. Genitourinary: Negative for hematuria. Musculoskeletal: Negative for arthralgias. Skin: Positive for rash (chronic itching and burning around genitals he thinks is from urinating a lot as his pants are constantly wet to some degree). Neurological: Positive for light-headedness (only if he overexerts; resolves with rest). Negative for dizziness. Hematological: Bruises/bleeds easily (bruises more easily in the last couple of years but no unusual bleeding). Psychiatric/Behavioral: Positive for sleep disturbance (from having to urinate a lot). Social History Social History Narrative Lives with Mikal, 53 years. Moved to [place] in April 2017 to be near their daughter (Lisa) at her request. She is very helpful to them. Lisa is with an 11 year old daughter (Isha). They have another daughter, Maddy, recently divorces and has moved to the [facility]. He and Mikal grew up and have lived in the [place] area their whole lives. 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 He likes to posey, fish, spend time with Isha, go to the beach, make art with [employer]. Wekeep very busy. NO reid practice. They have travelled the world extensively. Family History Problem Relation Age of Onset ??? Hypertension Father ??? Heart Disease Father ??? Diabetes Father ??? Cerebrovascular Accident Father ??? Heart Failure Mother ??? Hypertension Mother ??? Skin Cancer Neg Hx Patient Active Problem List Diagnosis Date Noted ??? ST elevation (STEMI) myocardial infarction involving left anterior descending coronary artery 06/04/2017 ??? Pacemaker 06/03/2017 ??? SSS (sick sinus syndrome) 06/03/2017 ??? Vitamin D deficiency 06/03/2017 ??? Epidermoid cyst of skin 06/03/2017 ??? Essential hypertension 05/19/2017 ??? Hyperlipidemia 05/19/2017 ??? Non-ST elevated myocardial infarction 05/18/2017 ??? Aortic valve disease--- TAVR December 2016 05/18/2017 ??? Coronary disease---hx of CABG 05/18/2017 ??? Chronic obstructive pulmonary disease 05/18/2017 ??? Prostate cancer--- treated with radical prostatectomy 05/18/2017 Medications 06/04/17 0956 Medication Sig Taking? atorvastatin (LIPITOR) 40 mg Tablet Take 1 tablet by mouth every evening. Yes lisinopril (PRINIVIL;ZESTRIL) 5 mg Tablet Take 1 tablet by mouth daily. Yes clopidogrel (PLAVIX) 75 mg Tablet Take 1 tablet by mouth daily. Yes aspirin (ASPIRIN) 81 mg Tablet, Chewable Take 81 mg by mouth daily. Yes meTOPROLOL tartrate (LOPRESSOR) 50 mg Tablet Take 1 tablet by mouth 2 times daily. Yes acetaminophen (TYLENOL) 325 mg Tablet Take 650 mg by mouth every 6 hours as needed. ranolazine (RANEXA) 500 mg Tablet Sustained Release 12 hr Take 500 mg by mouth 2 times daily. Objective: Visit Vitals ??? BP 113/59 (BP Location (NBP): Right arm, Patient Position: Sitting) ??? Pulse 59 ??? Temp 36.4 ??C (97.6 ??F) (Oral) ??? Resp 16 ??? Ht 170.2 cm (5' 7) ??? Wt 97.5 kg (215 lb) ??? SpO2 92% ??? BMI 33.67 kg/m2 Patient reported measures: Pain:0 Physical Health:[place]: No flowsheet data found. Wt Readings from Last 3 Encounters: 06/04/17 97.5 kg (215 lb) 05/20/17 97.6 kg (215 lb 2.7 oz) Physical Exam Constitutional: He is oriented to person, place, and time. He appears well- developed and well-nourished. No distress. HENT: Head: Normocephalic and atraumatic. Right Ear: External ear normal. Left Ear: External ear normal. Mouth/Throat: Oropharynx is clear and moist. No oropharyngeal exudate. TMs pearly with normal landmarks Eyes: Conjunctivae are normal. No scleral icterus. Left pupil reacts to light. Right is fixed Neck: No JVD present. No thyromegaly present. Cardiovascular: Normal rate, regular rhythm, normal heart sounds and intact distal pulses. Exam reveals no gallop and no friction rub. No murmur heard. Pulmonary/Chest: Effort normal and breath sounds normal. No respiratory distress. He has no wheezes. He has no rales. Abdominal: Soft. Bowel sounds are normal. He exhibits no distension and no mass. There is no tenderness. There is no rebound and no guarding. Genitourinary: Penis normal. Musculoskeletal: Normal range of motion. He exhibits no edema. Lymphadenopathy: He has no cervical adenopathy. Neurological: He is alert and oriented to person, place, and time. He has normal reflexes. He exhibits normal muscle tone. Coordination normal. Skin: Skin is warm and dry. He is not diaphoretic. Psychiatric: He has a normal mood and affect. His behavior is normal. Judgment and thought content normal. Vitals reviewed. Assessment and Plan: Vikash is a 76 year old male with an extensive cardiac history and recent STEMI. Here to establish care with Dr. Traylor as he is his daughter's PCP. 1. ST elevation (STEMI) myocardial infarction involving left anterior descending coronary artery Has f/u with cardio 2. Rash Contact dermatitis from urine exposure. Sample of barrier cream given to Ramón to apply to rash 1-2 times/day 3. Coronary artery disease, angina presence unspecified, unspecified vessel or lesion type, unspecified whether [place] or transplanted heart Followed by cards 4. Aortic valve disease--- TAVR December 2016 As above 5. Essential hypertension BP at goal today 6. Hyperlipidemia, unspecified hyperlipidemia type Continue with atorva 40 mg 7. Pacemaker Followed by [facility]. F/U [address] Traylor Needs tetanus/zoster vaccines (pending records review0 and to do advanced directive. - An After Visit Summary was given to the patient. documented in this encounter Plan of Treatment Upcoming Encounters Date Type Department Care Team (Late st Contact Info) Description 08/31/2024 10:00 AM EST Hospital Encounter Non-[place]vasive [place] [address] Arrived documented as of this encounter Visit Diagnoses Diagnosis ST elevation (STEMI) myocardial infarction involving left anterior descending coronary artery Acute myocardial infarction of other anterior wall, episode of care unspecified Rash Rash and other nonspecific skin eruption Coronary artery disease, angina presence unspecified, unspecified vessel or lesion type, unspecified whether [place] or transplanted heart Aortic valve disease--- TAVR December 2016 Aortic valve disorders Essential hypertension Unspecified essential hypertension Hyperlipidemia, unspecified hyperlipidemia type Pacemaker Cardiac pacemaker in situ documented in this encounter Care Teams Link Fabric Machine Operator Relationship Specialty Start Date End Date Ricki Traylor MD [facility] GENERAL [place] [address] PCP - General General Internal Medicine 05/30/1710/09 documented as of this encounter
--- OUTSIDE RECORDS SUMMARY | 2024-06-16 15:34 | XMS_ITS | Encounter Summary ---
Author Organization [facility] [place] [address] Care Team Providers Care Cad Intern Name Role Phone Ricki Traylor MD Primary Care Provider [phone] Encounter Details Date Type Department Care Team (Late st Contact Info) Description 08/24/2018 10:30 AM EST Office Visit Cardiology at [address] [phone] Rae Graham, RN Pacemaker Social History Tobacco Use Types Packs/Day Years Used Date Smoking Tobacco: Former Cigarettes 1 25 1 453 - 0210 Smokeless Tobacco: Never Alcohol Use Standard Drinks/Week Comments No 0 (1 standard drink = 0.6 oz pur e alcohol) Sex and Gender Information Value Date Recorded Sex Assigned at Not on file Gender Identity Not on file Sexual Orientation Not on file documented as of this encounter Last Filed Vital Signs Vital Sign Reading Time Taken Comments Blood Pressure 108/57 08/24/2018 10:26 AM EST Pulse 64 08/24/2018 10:26 AM EST Temperature - - Respiratory Rate - - Oxygen Saturation 96% 08/24/2018 10:26 AM EST Inhaled Oxygen Concentration - - Weight 91.2 kg (201 lb) 08/24/2018 10:26 AM EST Height 172.7 cm (5' 8) 08/24/2018 10:26 AM EST Body Mass Index 30.56 08/24/2018 10:26 AM EST documented in this encounter Progress Notes * Rae Graham, RN - 08/24/2018 10:30 AM EST Images from the original note were not included. Clinical Electrophysiology Device Service Note Vikash Álvarez is a 77 y.o. male who presents today to evaluate shortness of breath, lightheaded feeling and palpitations. He has increased ventricular pacing and now and this tends to change from time to time, this is unavoidable as he is in [facility]. He is seeing his primary care doctor to follow. He had a pacemaker implanted January 08, 2017 for SSS. He is status post TAVR in January 2017, both performed at [facility].He takes Plavix. He also has history of COPD, CVA, HTN,STEMI, Coronary Stent and visual disturbance. PCP: Ricki Traylor MD Rope Laying Machine Operator: Dr Mills Final Parameters at implant:( Please obtain lead info at next visit.) Ventricular electrode: Atrial electrode: Pulse generator: Cellabusde MRI L311 Serial # [id number] January 08, 2017 Settings: DDDR with Rythmiq OFF 60/130 Underlying rhythm: SR 68 bpm with CHB Ventricular escape at 33 bpm Atrial Lead: P wave: 2.7 mV Impedance: 633 ohms Threshold: 0.7 V @ 0.4 ms Ventricular Lead: R wave: >25 mV Impedance: 781 ohms Threshold: 1.1 V @ 0.4 ms Heart rate histograms: Good distribution with some left shifting heart rarely gets above 90 bpm Since May 25, 2018 Pacing percentages: AP 28 %; PHYSIOGNOMIST 71 %(13) Mode switch episodes: <1% for 1 episode of brief AT/AFL Jul 16, 2018 for 20 beats VHR: none PACs 2.6 K PVCs 1.1K Battery voltage: Est 7.5 years remaining Wound assessment: Well healed with good coverage Reprogramming: RYThMIQ turned OFF-and PAV extended to 240-300 ms and FELIICTY extended 210-260 ms to encourage intrinsic rhythm without dropping beats as with RYTHMIQ and V amplitude set to Auto Plan: Remote in 3 mos. RTC in 1 year- Provider: Rae Graham RN Attending: Dr Franz Staff addendum: I agree with the findings and assessment of Rae Graham as detailed and edited above. Interestingly, he has had periods of 100% RV pacing previously. For example, in July 2018 there was a period of 100% RV pacing. He is in another period of RV pacing now -- permanent? Reasonable to check yearly TTE if he continues to 100% RV pace since he might benefit from upgrade to LV vsHis lead if EF falls. I was immediately available during this visit. Prachi Franz MD 09/16/2018 8:47 AM documented in this encounter Plan of Treatment Upcoming Encounters Date Type Department Care Team (Late st Contact Info) Description 08/31/2024 10:00 AM EST Hospital Encounter Non-Invasive [place] [address] Arrived documented as of this encounter Visit Diagnoses Diagnosis Pacemaker Cardiac pacemaker in situ documented in this encounter Care Teams Cad Intern Relationship Specialty Start Date End Date Ricki Traylor MD [facility] GENER[place] [address] PCP - General General Internal Medicine 05/30/1710/09 documented as of this encounter
--- OUTSIDE RECORDS SUMMARY | 2024-06-16 15:34 | XMS_ITS | Encounter Summary ---
[place] [address] Care Team Providers Care Slat Basket Maker Name Role Phone Leoncio Rios MD Primary Care Provider [phone] Reason for Visit * Reason Onset Date Comments Prior Authorization 05/12/2018 clotrimazole -betamethasone 1-0.05% cream Encounter Details Date Type Department Care Team (Late st Contact Info) Description 05/12/2018 Telephone [place] [address] Michelle Knight CCMA Prior Authorization (clotrimazole-betamethas one 1-0.05% cream) Social History Tobacco Use Types Packs/Day Years [...] as of this encounter Miscellaneous Notes * Addendum Note - Leoncio Rios MD - 05/13/2018 12:06 PM EDTAddended by: LEONCIO RIOS on: 05/13/2018 12:06 PM Modules accepted: Orders * Telephone Encounter - Holly Giraldo CMA - 05/13/2018 11:24 AM EDT Medication Prior Authorization for Primary [place] [address] Denied: X Additional Information from Insurance carrier: Why did we deny your request? We denied this request under Medicare Part D because: The requested drug is not on your plan's formulary (list of covered drugs). Your Medicare Part D drug plan was asked to cover a drug that isnot on the formulary (this is called a formulary exception). Your prescriber did not provide the detailed information that is required in order to approve the request. To receive a formulary exception, your prescriber must provide information that documents at least one of the following has occurred: - You have tried the formulary drugs for the treatment of your condition and they did not work for you. OR - The formulary drugs could cause adverse effects. OR - The formulary drugs would be less effective for your condition than the requested drug. Talk to your prescriber to see if the following covered alternative(s) would be right for you: Clotrimazole cream, Clotrimazole topical solution Betamethasone Dipropionate cream, Betamethasone Dipropionate lotion, Betamethasone Dipropionate ointment * Telephone Encounter - Michelle Knight CCMA - 05/12/2018 1:32 PM EDT Medication Prior Authorization for Primary [place] [address] Patient: Vikash Álvarez Patient : 1940 Subscriber Insurance: [employer] Insurance Phone #: Sent via: [employer]/Fax#: [id number] Physician: Leoncio Rios MD Return Medication Requested: clotrimazole-betamethasone Strength: 1-0.05 % cream Frequency: Apply topically 2 times daily. Disp.: 30 g Refills: 0 Currently taking: no If yes, how long: N/A Diagnosis for this medication: Allergic Dermatitis ICD-10 code: L23.5 Prior medications trialed in this patient: documented in this encounter Plan of Treatment Upcoming Encounters Date Type Department Care Team (Late st Contact Info) Description 08/31/2024 10:00 AM EST Hospital Encounter Non-[place]vasive [place] [address] Arrived documented as of this encounter Visit Diagnoses Diagnosis Rash Rash and other nonspecific skin eruption documented in this encounter Care Teams Slat Basket Maker Relationship Specialty Start Date End Date Leoncio Rios MD [facility] [place] [address] PCP - General General Internal Medicine 05/30/1710/09 documented as of this encounter
--- OUTSIDE RECORDS SUMMARY | 2024-06-16 15:34 | XMS_ITS | Encounter Summary ---
Author Organization [facility] Address [facility] [place] [address] Care Team Providers Care Wharfmaster Name Role Phone Ricki Traylor MD Primary Care Provider [phone] Reason for Visit * Reason Onset Date Comments Medication Refill 05/20/2018 Encounter Details Date Type Department Care Team (Late st Contact Info) Description 05/20/2018 Telephone Cardiology at [address] [phone] Juan Jose Mills MD [facility] [place] [address] Medication Refill Social History Tobacco Use Types [...] encounter Miscellaneous Notes * Telephone Encounter - Lilly Grant - 05/20/2018 9:28 AM EDT Pt has been out of his Lipitor and Metoprolol for the last 5 days. He was told by the pharmacy thatthey've been sending requests and he has reached out to 's office to get them but he feels that he'd prefer be in charge of these scripts and was just his surgeon. Please call the pt to discuss [phone]. documented in this encounter Plan of Treatment Upcoming Encounters Date Type Department Care Team (Late st Contact Info) Description 08/31/2024 10:00 AM EST Hospital Encounter Non-Invasive [place] [address] Arrived documented as of this encounter Visit Diagnoses Not on filedocumented in this encounter Care Teams Wharfmaster Relationship Specialty Start Date End Date Ricki Traylor MD [facility] GENER[facility] [place] [address] PCP - General General Internal Medicine 05/30/1710/09 documented as of this encounter
--- OUTSIDE RECORDS SUMMARY | 2024-06-16 15:34 | XMS_ITS | Encounter Summary ---
Author Organization [facility] Address [facility] [address] Care Team Providers Care Hearing Health Technician Name Role Phone Ricki Traylor MD Primary Care Provider [phone] Encounter Details Date Type Department Care Team (Late st Contact Info) Description 10/13/2017 Telephone [place] [phone] Rebeca Rowley Social History Tobacco Use Types Packs/Day Years [...] AM EST Hospital Encounter Non[place] [phone] Arrived documented as of this encounter Visit Diagnoses Not on filedocumented in this encounter Care Teams Hearing Health Technician Relationship Specialty Start Date End Date Ricki Traylor MD [facility] [place] [address] PCP - General General Internal Medicine 05/30/1710/09 documented as of this encounter
--- OUTSIDE RECORDS SUMMARY | 2024-06-16 15:34 | XMS_ITS | Encounter Summary ---
[place] [address] Care Team Providers Care Tow Picker Name Role Phone Ricki Traylor MD Primary Care Provider Encounter Details Date Type Department Care Team (Late st Contact Info) Description 10/21/2017 Telephone [place]iac [place] [address] Yaneth Garcia RT Social History Tobacco Use Types Packs/Day Years [...] Miscellaneous Notes * Telephone Encounter - Yaneth Garcia RT - 10/21/2017 10:59 AM EDT Called Vikash Álvarez at home, left message to call [facility] pulmonary rehabilitation. Plan to review HEP, current OP PT status at [facility] and potential pulmonary rehab. ? [facility]. documented in this encounter Plan of Treatment Upcoming Encounters Date Type Department Care Team (Late st Contact Info) Description 08/31/2024 10:00 AM EST Hospital Encounter Non-Invasive [place] [phone] Arrived documented as of this encounter Visit Diagnoses Not on filedocumented in this encounter Care Teams Tow Picker Relationship Specialty Start Date End Date Ricki Traylor MD [facility] [place] [address] PCP - General General Internal Medicine 05/30/1710/09 documented as of this encounter
--- OUTSIDE RECORDS SUMMARY | 2024-06-16 15:34 | XMS_ITS | Encounter Summary ---
Author Organization [facility] Address [facility] [place] [address] Care Team Providers Care Parts Washer Name Role Phone Ricki Traylor MD Primary Care Provider Encounter Details Date Type Department Care Team (Late st Contact Info) Description 10/10/2017 Telephone [place] [address] Yaneth Garcia RT Social History [...] Telephone Encounter - Yaneth Garcia RT - 10/10/2017 4:22 PM EST Called Vikash Álvarez at home, left message to call pulmonary rehabilitation documented in this encounter Plan of Treatment Upcoming Encounters Date Type Department Care Team (Late st Contact Info) Description 08/31/2024 10:00 AM EST Hospital Encounter Non-[place]vasive [place] [address] Arrived documented as of this encounter Visit Diagnoses Not on filedocumented in this encounter Care Teams Parts Washer Relationship Specialty Start Date End Date Ricki Traylor MD [facility] GENERAL [place] [address] PCP - General General Internal Medicine 05/30/1710/09 documented as of this encounter
--- OUTSIDE RECORDS SUMMARY | 2024-06-16 15:34 | XMS_ITS | Encounter Summary ---
Author Organization [facility] Address [facility] [place] [address] Care Team Providers Care Sales Administrator Name Role Phone Ricki Traylor MD Primary Care Provider [phone] Reason for Visit * Reason Onset Date Comments Other 08/25/2018 Encounter Details Date Type Department Care Team (Late st Contact Info) Description 08/25/2018 Telephone [place] [phone] Lyla Edwards RN Other Social History Tobacco Use Types Packs/Day [...] encounter Miscellaneous Notes * Telephone Encounter - Lyla Edwards RN - 08/27/2018 9:35 AM EST Called Ramón to find out how he is doing. He says he is feeling better. He has not had any episodes of dizziness for the last three days. Told him we are glad to hear that. Reminded him to call if he has any questions or concerns. * Telephone Encounter - Lyla Edwards RN - 08/25/2018 2:33 PM EST Tried calling Ramón to see how he is doing. No answer and voicemail is full. Will try again later. * Telephone Encounter - Lyla Edwards RN - 08/25/2018 2:31 PM EST ----- Message from BERNADINE Milian sent at 08/25/2018 12:35 PM EST ----- Nurses, any chance you can call Ramón to see how he is feeling? Thank you. TOYIN Crawford. documented in this encounter Plan of Treatment Upcoming Encounters Date Type Department Care Team (Late st Contact Info) Description 08/31/2024 10:00 AM EST Hospital Encounter [place] [address] Arrived documented as of this encounter Visit Diagnoses Not on filedocumented in this encounter Care Teams Sales Administrator Relationship Specialty Start Date End Date Ricki Traylor MD [facility] [place] [address] PCP - General General Internal Medicine 05/30/1710/09 documented as of this encounter
--- OUTSIDE RECORDS SUMMARY | 2024-06-16 15:34 | XMS_ITS | Encounter Summary ---
Author Organization [facility] Address [facility] [place] [address] Care Team Providers Care Double Corner Cutter Name Role Phone Ricki Traylor MD Primary Care Provider [phone] Reason for Visit * Reason Onset Date Comments Triage 05/07/2018 Encounter Details Date Type Department Care Team (Late st Contact Info) Description 05/07/2018 Telephone [place] [phone] Ilene Reilly Triage Social History Tobacco Use Types Packs/Day [...] encounter Miscellaneous Notes * Telephone Encounter - Elizabeth Casarez - 05/07/2018 4:36 PM EDT Pt called back. Scheduled OV w/ [place] on 05/12 per pt request for date and time. * Telephone Encounter - Nakia Harris RN - 05/07/2018 4:01 PM EDT Rash on ankles- mostly right 8 inches about ankle. Started as slight irritation and overnight it was a very red rash, turned raw, drainage urmila red, on and off for about 2-3 months, scaly, states itslittle blisters about a thousand of them, states its burning Denies streaking, denies fever, dizziness yesterday Staying hydrated Tried bacitracin Offered patient a visit for tomorrow to be seen- patient declines as the time is not good for him Offered walk in clinic tonight- patient declined as he lives in [facility] [place] Stressed that we need to see him in order to give him a derm appointment or to diagnose * Telephone Encounter - Ilene Reilly - 05/07/2018 2:15 PM EDT Message: Patient calling with Rash on Ankles on Lower Calf on both LT & RT legs, very painful and irritable. States it looks like a burn with bubble like appearance. Please call back to triage rosendo Caller and relationship (if other than patient-full name): self Best time to call back: rosendo Ok to leave a message: [] Ok to send my-DH message: ] Offered Appointment: n MA/Nurse contacted via: Message: y Call: y Pager: n documented in this encounter Plan of Treatment Upcoming Encounters Date Type Department Care Team (Late Contact Info) Description 08/31/2024 10:00 AM [facility] Hospital Encounter Non-[place] [address] Arrived documented as of this encounter Visit Diagnoses Not on filedocumented in this encounter Care Teams Double Corner Cutter Relationship Specialty Start Date End Date Ricki Traylor MD [facility] [place] [address] PCP - General General Internal Medicine 05/30/1710/09 documented as of this encounter
--- OUTSIDE RECORDS SUMMARY | 2024-06-16 15:34 | XMS_ITS | Encounter Summary ---
Author Organization [facility] [place] [address] Care Team Providers Care Histotechnician Name Role Phone Ricik Traylor MD Primary Care Provider [phone] Reason for Referral * Consultation (Routine) - Specialty Diagnoses / Procedures Referred By Contniurka t Referred To Contact Pulmonology Diagnoses COPD, very severe Ricki Traylor MD [facility] [place] [address] [facility] [address] [place] [phone] Referral ID Status Reason Start Date Expiration Date Visits Requested Visits Authorized [id number] Specialty Service Requested 06/26/2017 06/26/2018 1 1 Reason for Visit * Reason Comments Follow-up Encounter Details Date Type Department Care Team (Late st Contact Info) Description 06/26/2017 1:40 PM EST Office [place] [phone] Ricki Traylor MD [facility] [address] [address] Preventative health care; Screening for cardiovascular condition; COPD, very severe; S/P TAVR (transcatheter aortic valve replacement); Coronary artery disease, angina presence unspecified, unspecified vessel or lesion type, unspecified whether [place] or transplanted heart; Essential hypertension; Prostate CA; Blind right eye; S/P lumbar fusion Social History Tobacco Use Types Packs/Day Years [...] Sign Reading Time Taken Comments Blood Pressure 110/52 06/26/2017 1:18 PM EST Pulse 71 06/26/2017 1:18 PM EST Temperature 37.2 ??C (98.9 ??F) 06/26/2017 1:18 PM ES T Respiratory Rate 20 06/26/2017 1:18 PM EST Oxygen Saturation 88% 06/26/2017 1:18 PM EST Inhaled Oxygen Concentration - - Weight 99.3 kg (219 lb) 06/26/2017 1:18 PM EST Height 172.3 cm (5' 7.84) 06/26/2017 1:18 PM ES T Body Mass Index 33.46 06/26/2017 1:18 PM EST documented in this encounter Progress Notes * Ricki Traylor MD - 06/26/2017 1:40 PM EST Subjective: Patient ID: Vikash Álvarez is a 76 y.o. male. HPI Patient is a pleasant 76 y.o. 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 His current concerns are: ?? COPD - He has had dyspena at rest since AVR in 12/2016 He is currently on 2L O2 though has not been taking it consistently during the day. ?? TAVR - 12/25 pacemaker planted at same time ?? CVD - HI x 3, CaBG x4 (1994 ), stent (2014), Stent (2016) ?? Prostate Ca - s/p resection, psa stable ?? HTN - stable ?? Lumbar fusion - 2016 with pain resolution ?? 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 Hypertension Father ??? Heart Disease Father ??? Diabetes Father ??? Cerebrovascular Accident Father ??? Heart Failure Mother ??? Hypertension Mother ??? Skin Cancer Neg Hx Social History Substance Use Topics ??? Smoking status: Former Smoker Packs/day: 1.00 Years: 25.00 Types: Cigarettes ??? Smokeless tobacco: Never Used ??? Alcohol use No Review of Systems HENT: See HPI Respiratory: See HPI Cardiovascular: See HPI Gastrointestinal: Negative. Endocrine: Negative. Genitourinary: See HPI Musculoskeletal: See HPI Objective: BP 110/52 (BP Location (NBP): Right arm, Patient Position: Sitting, BP Cuff Sizes: Adult (25-34 cm)) Pulse 71 Temp 37.2 ??C (98.9 ??F) (Oral) Resp 20 Ht 172.3 cm (5' 7.84) Wt 99.3 kg (219 lb) SpO2 (!) 88% BMI 33.46 kg/m2 Patient reported measures: Pain:0 Physical Health:Poor Fall: No flowsheet data found. Physical Exam Constitutional: He is oriented to person, place, and time. Cyanotic off O2 HENT: N EOM, OSCAR, N Fundi, N TM, N sinus, N Pharynx, N LN, N Thyroid Cardiovascular: N s1s2 w/o s3s4 2-3/sys murmur best at aortic root Pulmonary/Chest: Effort normal and breath sounds normal. He has no wheezes. Abdominal: Soft. Bowel sounds are normal. There is no tenderness. Without HSM Musculoskeletal: N BPT, Full ROM Neurological: He is alert and oriented to person, place, and time. Assessment and Plan: 1. Preventative health care - Comprehensive metabolic panel (non-fasting); Future - Tdap vaccine greater than or equal to 7yo IM; Future - Tdap vaccine greater than or equal to 7yo IM - Comprehensive metabolic panel (non-fasting) 2. Screening for cardiovascular condition - HDL/Cholesterol Profile; Future - HDL/Cholesterol Profile 3. COPD, very severe - CBC (with Diff) - Hemogram - Differential, Automated - Referral to Pulmonology 4. S/P TAVR (transcatheter aortic valve replacement) stable 5. Coronary artery disease, angina presence unspecified, unspecified vessel or lesion type, unspecified whether [place] or transplanted heart To be followed with cardiology 6. Essential hypertension stable 7. Prostate CA Followed with heme/onc 8. Blind right eye Stable 9. S/P lumbar fusion Stable F/u prn F/u 3 month documented in this encounter Plan of Treatment Upcoming Encounters Date Type Department Care Team (Late st Contact Info) Description 08/31/2024 10:00 AM EST Hospital Encounter [place] [address] Arrived Scheduled Referrals Name Type Priority Associated Diagnoses Order Schedule Referral to Pulmonology Outpatient Referral Routine COPD, very severe Ordered: 06/26/2017 documented as of this encounter Procedures Procedure Name Priority Date/Time Associated Diagnosis Comments HEMOGRAM STAT 06/26/2017 2:46 PM EST COPD, very severe DIFFERENTIAL, AUTOMATED STAT 06/26/2017 2:46 PM EST COPD, very severe CBC (WITH DIFF) STAT 06/26/2017 2:46 PM EST COPD, very severe HDL/CHOL PROFILE Routine 06/26/2017 2:46 PM EST Screening for cardiovascular condition COMPREHENSIVE METABOLIC PANEL Routine 06/26/2017 2:46 PM EST Preventative health care documented in this encounter Results * Differential, Automated (06/26/2017 2:46 PM EST) Neutrophil % 65.3 % [facility] Neutrophil Absolute 3.92 1.70 - 6.10 x10(3)/[facility] Lymph % 23.1 % [facility] Lymphocytes Abs 1.4 0.9 - 3.2 x10(3)/[facility] Monocyte % 10.1 % [facility] Monocyte Abs 0.6 0.3 - 0.9 x10(3)/[facility] Eos % 1.0 % [facility] Eosinophils Abs 0.1 0.0 - 0.4 x10(3)/[facility] Basophil % 0.3 % [facility] Baso Absolute 0.0 0.0 - 0.1 x10(3)/[facility] Immature Gran % 0.20 % [facility] Comment: Immature granulocytes(IG's)percentage and absolute count will include metamyelocytes, myelocytes, and promyelocytes. Blood smears from CBCs yielding IG's will be scanned manually for concordance. If this scan disagrees with the automated IG or if promyelocytes are noted, a manual differential will be performed. Immature Gran Absolute 0.01 0.00 - 0.04 x10(3)/[facility] Blood specimen (specimen) 06/26/2017 2:46 PM EST 06/26/2017 2:52 PM EST Narrative Resulting Agency Comment Spec In Lab Ricki Traylor MD HEMATOLOGY ORDERABLE S Performing Organization Address City/State/[facility] Co de Phone Number [facility] [place] [address] * (ABNORMAL) Hemogram (06/26/2017 2:46 PM EST) White Blood Cell 6.0 4.0 - 9.5 x10(3)/mc L [facility] Red Blood Cell 4.55(L) 4.58 - 5.54 x10(6)/mc L [facility] Hemoglobin 14.4 13.7 - 16.5 gm/dL [facility] Hematocrit 45.1 40.5 - 48.5 % [facility] Mean Cell Volume 99.1(H) 82.9 - 93.[address] [facility] Mean Cell Hemoglobin 31.6 27.5 - 32.[address] [facility] Mean Cell Hemoglobin Concentration 31.9(L) 32.0 - 35.7 gm/dL [facility] Platelet 119(L) 145 - 357 x10(3)/mc L [facility] RDW Standard Deviation 49.1(H) 36.0 - 45.[address] [facility] RDW coefficient of variation 13.3 11.4 - 13.8 % [facility] Mean Platelet Volume 9.0 7.6 - 12.[address] [facility] NRBC% auto 0.0 % [facility] NRBC Absolute 0.000 0.000 - 0.000 x10(3)/mc L [facility] Blood specimen (specimen) 06/26/2017 2:46 PM EST 06/26/2017 2:52 PM EST Narrative Resulting Agency Comment Spec In Lab Ricki Traylor MD HEMATOLOGY ORDERABLE S [facility] [place] [address] * (ABNORMAL) Comprehensive metabolic panel (non-fasting) (06/26/2017 2:46 PM EST) Glucose 110 65 - 199 mg/dL [facility] Comment:Diabetes: >=200 mg/d L plus symptoms Blood Urea Nitrogen 26(H) 10 - 20 mg/dL [facility] Creatinine 1.10 0.80 - 1.50 mg/dL [facility] Sodium 141 135 - 145 mmol/L [facility] Potassium 4.9 3.5 - 5.0 mmol/L [facility] Comment: Please note: ??Patients with WBC >100,000 may have falsely elevated Potassium levels. ??For accurate Potassium quantification in these patients send serum separator tube (gold top) for subsequent determinations. ??Contact the Clinical Chemistry Laboratory if there are any questions. Chloride 99 98 - 107 mmol/L [facility] Carbon Dioxide 32(H) 22 - 31 mmol/L [facility] Anion Gap 10 5 - 15 mmol/L [facility] Calcium 9.1 8.5 - 10.5 mg/dL [facility] Protein, Total 6.9 6.1 - 8.0 gm/dL [facility] Albumin 4.1 3.2 - 5.2 gm/dL [facility] Aspartate Aminotransferase 22 0 - 39 unit/L [facility] Alanine Aminotransferase 25 0 - 55 unit/L [facility] Alkaline Phosphatase 100 40 - 120 unit/L [facility] Bilirubin, Total 0.5 0.2 - 1.3 mg/dL [facility] Est Glomerular Filtration Rate >60 >=60 [facility] Comment: The reported eGFR should be multiplied by 1.2 for patients. The MDRD is not an appropriate measure of renal function for patients with body mass extremes or in patients with acute kidney failure. http://[address] [employer]/DHnkdep http://[address] [employer]/DHMCnkf Blood specimen (specimen) 06/26/2017 2:46 PM EST 06/26/2017 2:52 PM EST Narrative Resulting Agency Comment Spec In Lab Ricki Traylor MD CHEMISTRY ORDERABLES Performing Organization Address City/State/[facility] Co de Phone Number [facility] [place] [address] * HDL/Cholesterol Profile (06/26/2017 2:46 PM EST) Cholesterol, Total 139 <=239 mg/dL [facility] HDL Cholesterol 46 >=40 mg/dL [facility] Cholesterol/HDL Ratio 3.[address] [facility] Chol/HDL Interpretation See Note [facility] Comment: Lipid management should be guided by a patient? s ASCVD risk, goals and preferences. ACC/AHA Guidelines recommend high intensity statin if clinical ASCVD or LDL greater than or equal to 190 mg/dL. http://[employer]/QIK-VES-Saihihxoj Measure LDL if Total Cholesterol minus HDL Cholesterol is greater than 220 mg/dL. Adults aged 40-75 with LDL 70-189 mg/dL should have their 10 year ASCVD risk estimated with the ACC/AHA ASCVD risk senior cost estimator http://tools.acc.org/GJKHI-Nvvf-Kvjxcnvmr/ Statin should be discussed if risk greater than or equal to 7.5% in non-diabetics. With diabetes, moderate intensity statin is recommended if risk less than 7.5%, high intensity if risk greater than or equal to 7.5%. Annual lipid monitoring on statins is not necessary. Lifestyle modification is a critical component of ASCVD risk reduction. Blood specimen (specimen) 06/26/2017 2:46 PM EST 06/26/2017 2:52 PM EST Narrative Resulting Agency Comment Spec In Lab Ricki Traylor MD CHEMISTRY ORDERABLES Performing Organization Address City/State/[facility] Co de Phone Number [facility] [place] [address] documented in this encounter Visit Diagnoses Diagnosis Preventative health care Routine general medical examination at a health care facility Screening for cardiovascular condition Screening for other and unspecified cardiovascular conditions COPD, very severe Chronic airway obstruction, not elsewhere classified S/P TAVR (transcatheter aortic valve replacement) Coronary artery disease, angina presence unspecified, unspecified vessel or lesion type, unspecified whether [place] or transplanted heart Essential hypertension Unspecified essential hypertension Prostate CA Malignant neoplasm of prostate Blind right eye Profound impairment, one eye, Impairment level not further specified S/P lumbar fusion Arthrodesis status documented in this encounter Care Teams Histotechnician Relationship Specialty Start Date End Date Ricki Traylor MD [facility] [place] [address] PCP - General General Internal Medicine 05/30/1710/09 documented as of this encounter
--- OUTSIDE RECORDS SUMMARY | 2024-06-16 15:34 | XMS_ITS | Encounter Summary ---
Author Organization [facility] [address] Care Team Providers Care Senior Operations Manager Name Role Phone Ricki Traylor MD Primary Care Provider [phone] Reason for Referral * Consultation (Routine) - Specialty Diagnoses / Procedures Referred By Contniurka romero Referred To Contact Dermatology Diagnoses Skin rash Daniel Torres PA [facility] [place] [address] [facility] Dermat[facility] [address] [place] [address] Referral ID Status Reason Start Date Expiration Date V isits Requested Visits Authorized [id number] Consult, Test & Treat 10/07/2018 10/07/2019 12 12 Reason for Visit * Reason Onset Date Comments Referral 10/01/2018 Encounter Details Date Type Department Care Team (Late st Contact Info) Description 10/01/2018 Telephone Internal [place] [address] Sophia Gillis Referral Social History Tobacco Use Types Packs/Day [...] * Telephone Encounter - Sophia Gillis - 10/01/2018 9:33 AM EST Patient is requesting a referral for what kind of services/treatment: 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 loan 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 Reason for this referral request: left foot and ankles burning rash Specific office or provider: [facility] Address/Phone/Fax: Has the patient been seen for this symptom: yes Who: Mark Torres When: Caller and Relationship (if other than patient): Vikash Best time to call back: any Ok to leave a message: yes Ok to send - message: documented in this encounter Plan of Treatment Upcoming Encounters Date Type Department Care Team (Late st Contact Info) Description 08/31/2024 10:00 AM EST Hospital Encounter Non-[place] [address] Arrived Scheduled Referrals Name Type Priority Associated Diagnoses Order Schedule Referral to Dermatology Outpatient Referral Routine Skin rash Ordered: 10/07/2018 documented as of this encounter Visit Diagnoses Diagnosis Skin rash- Primary Rash and other nonspecific skin eruption documented in this encounter Care Teams Senior Operations Manager Relationship Specialty Start Date End Date Ricki Traylor MD [facility] [place] [address] PCP - General General Internal Medicine 05/30/1710/09 documented as of this encounter
--- OUTSIDE RECORDS SUMMARY | 2024-06-16 15:34 | XMS_ITS | Encounter Summary ---
Author Organization [facility] [place] [address] Care Team Providers Care Knowledge Management Advisor Name Role Phone Ricki Traylor MD Primary Care Provider [phone] Encounter Details Date Type Department Care Team (Latest Contact Info) Description 08/26/2017 10:30 AM EST - 08/26/2017 11:59 PM EST Hospital Encounter [place] [address] Chronic obstructive pulmonary disease, unspecified COPD type Discharge Disposition: Home Social History Tobacco Use [...] Sig Dispensed Refills Start Date End Date tiotropium-olodaterol 2.5-2.5 mcg/actuation MistIndications:COPD, very severe Inhale 2 Inhalation into the lungs daily. 4 g 11 08/26/2017 11/18/2017 furosemide (LASIX) 20 mg Tablet Take 1 tablet by mouth daily. 90 tablet 3 06/26/2017 07/01/2018 acetaminophen (TYLENOL) 325 mg Tablet Take 650 mg by mouth every 6 hours as needed. 05/25/2018 atorvastatin (LIPITOR) 40 mg Tablet Take 1 tablet by mouth every evening. 90 tablet 3 05/20/2017 05/19/2018 lisinopril (PRINIVIL;ZESTRIL) 5 mg Tablet Take 1 tablet by mouth daily. 90 tablet 3 05/21/2017 05/27/2018 clopidogrel (PLAVIX) 75 mg Tablet Take 1 tablet by mouth daily. 90 tablet 3 05/21/2017 08/18/2018 aspirin (ASPIRIN) 81 mg Tablet, Chewable Take 81 mg by mouth daily. 30 tablet 3 05/21/2017 09/15/2019 meTOPROLOL tartrate (LOPRESSOR) 50 mg Tablet Take 1 tablet by mouth 2 times daily. 180 tablet 3 05/20/2017 05/19/2018 documented as of this encounter Procedure Notes * Lisa Pugh MD - 08/26/2017 3:56 PM ESTAssociated Order(s): PULMONARY FUNCTION TEST A significant ambulatory oxygen desaturation (greater than 4% drop from the resting baseline) was seen after 600 ft ambulation, when SpO2 was 90 %. Lisa Pugh MD Section of Pulmonary [facility]. documented in this encounter Plan of Treatment Upcoming Encounters Date Type Department Care Team (Late st Contact Info) Description 08/31/2024 10:00 AM EST Hospital Encounter [place] [address] Arrived documented as of this encounter Procedures Procedure Name Priority Date/Time Associated Diagnosis Comments COMMON PULMONARY FUNCTION TEST Routine 08/26/2017 3:58 PM EST Chronic obstructive pulmonary disease, unspecified COPD type documented in this encounter Results * Pulmonary Function Testing (08/26/2017 3:58 PM EST) Narrative Lisa Pugh MD - 08/26/2017 3:58 PM EST Lisa Pugh MD ? 08/26/2017 ??3:58 PM A significant ambulatory oxygen desaturation (greater than 4% drop from the resting baseline) ??was seen after 600 ft ambulation, when SpO2 was 90 %. ?? Lisa Pugh MD Section of Pulmonary [facility]. Ricki Merino Jr., MD PFT ORDERABLES documented in this encounter Visit Diagnoses Diagnosis Chronic obstructive pulmonary disease, unspecified COPD type documented in this encounter Care Teams Knowledge Management Advisor Relationship Specialty Start Date End Date Ricki Traylor MD [facility] [place] [address] PCP - General General Internal Medicine 05/30/1710/09 documented as of this encounter
--- OUTSIDE RECORDS SUMMARY | 2024-06-16 15:34 | XMS_ITS | Encounter Summary ---
[place] [address] Care Team Providers Care Bar Pointer Name Role Phone Ricki Traylor MD Primary Care Provider [phone] Encounter Details Date Type Department Care Team (Late st Contact Info) Description 12/05/2017 [place] [phone] Yaneth Garcia RT Social History Tobacco Use [...] Telephone Encounter - Yaneth Garcia RT - 12/05/2017 9:35 AM EDT Called Vikash Álvarez at home, reviewed referral for pulmonary rehab. He noted that he completed OP PT approximately 1 month ago. He then had the flu and was laid up for 3 weeks. He is now feeling better, outside doing raking, walking. He would like to continue his exercise/activities outside and defer pulmonary rehab at this time. Plan; close referral for pulmonary rehab at this time. He will notify Dr. Merino in the future when he is ready to participate in pulmonary rehab. documented in this encounter Plan of Treatment Upcoming Encounters Date Type Department Care Team (Late st Contact Info) Description 08/31/2024 10:00 AM EST Hospital Encounter [place] [address] Arrived documented as of this encounter Visit Diagnoses Not on filedocumented in this encounter Care Teams Bar Pointer Relationship Specialty Start Date End Date Ricki Traylor MD [facility] [address] [place] [address] PCP - General General Internal Medicine 05/30/1710/09 documented as of this encounter
--- OUTSIDE RECORDS SUMMARY | 2024-06-16 15:34 | XMS_ITS | Encounter Summary ---
Author Organization [facility] Address [facility] [place] [address] Care Team Providers Care Enrollment Management Coordinator Name Role Phone Ricki Traylor MD Primary Care Provider [phone] Reason for Visit * Reason Onset Date Comments Triage 07/31/2017 Encounter Details Date Type Department Care Team (Late st Contact Info) Description 07/31/2017 Telephone [place] [phone] Silke Thompson Triage Social History Tobacco Use Types Packs/Day [...] Telephone Encounter - Loren Najera RN - 07/31/2017 11:28 AM EST Caller: Patient Name and Date of confirmed: yes Learning Needs Assessment Reviewed: no Reason for Call: Sore throat Assessment (History of Present Illness) Patient states last night he started having a sore throat. A little worse this morning. No other symptoms He states his sister in law has been having a cold and was given an antibiotic Symptom onset: Last night, worse this morning Medication/Allergy Review: yes Pertinent Positives: Sore throat Pertinent Negatives: None of the following: Fever, shortness of breath, difficulty breathing or swallowing, white in back of throat, difficulty eating or drinking, history of rheumatic fever, mitral valve prolapse Plan Intervention/Plan/ Follow Up: Patient will try the following: gargle with salt water, increase fluids, frozen cough drops, warm tea with honey, vaporizer or hot shower to keep air moist. Patient willcall if Symptoms worsen or will be seen closer to home Caller/Patient was able to repeat back instructions with accuracy: yes Dispostion: Patient will monitor at home and will call this office if symptoms worsen Reason for Disposition: Sore throat Reference: Telephone Triage Protocols for Nurses, 5th Edition, Deborah Peralta, 2016/sore throat * Telephone Encounter - Silke Barillas - 07/31/2017 9:49 AM EST Message: requesting to speak with a nurse regarding a sore throat he woke up with this morning. Caller and relationship (if other than patient-full name): self Best time to call back: any Ok to leave a message: [y] Ok to send my- message: [n] Offered Appointment: MA/Nurse contacted via: Message: x Call: n Pager: n documented in this encounter Plan of Treatment Upcoming Encounters Date Type Department Care Team (Late st Contact Info) Description 08/31/2024 10:00 AM EST Hospital Encounter Non[place] [address] Arrived documented as of this encounter Visit Diagnoses Not on filedocumented in this encounter Care Teams Enrollment Management Coordinator Relationship Specialty Start Date End Date Ricki Traylor MD [facility] GENER[facility] [place] [address] PCP - General General Internal Medicine 05/30/1710/09 documented as of this encounter
--- OUTSIDE RECORDS SUMMARY | 2024-06-16 15:34 | XMS_ITS | Encounter Summary ---
Author Organization [facility] Address [facility] [place] [address] Care Team Providers Care Hat Trimmer Name Role Phone Ricki Traylor MD Primary Care Provider [phone] Reason for Referral * Consultation (Routine) - Closed Specialty Diagnoses / Procedures Referred By Contac t Referred To Contact Ophthalmology Diagnoses Eye pain, bilateral Ricki Traylor MD [facility] GENERAL [place] [address] Preeti Dela Cruz OD [facility] [place] [address] Referral ID Status Reason Start Date Expiration Date V isits Requested Visits Authorized [id number] Closed Consult, Test & Treat 10/09/2017 10/09/2018 1 1 * Consultation (Routine) - Closed Specialty Diagnoses / Procedures Referred By Contac t Referred To Contact Cardiology Diagnoses Cough Ricki Traylor MD [facility] GENER[facility] [place] [address] [facility] [place] [address] Referral ID Status Reason Start Date Expiration Date V isits Requested Visits Authorized [id number] Closed Evaluate and Treat 10/09/2017 10/09/2018 36 36 Reason for Visit * Reason Comments Follow-up chest tightness, cou gh, lots of phlegm, no fever, been to clinic, just finished taking doxycycline for 5 days, Encounter Details Date Type Department Care Team (Late st Contact Info) Description 10/09/2017 11:40 AM EST Office Visit Internal Medicine at [facility] [place] [address] Ricki Traylor MD [facility] GENER[facility] [place] [address] Cough; Eye pain, bilateral Social History Tobacco Use Types Packs/Day [...] Sign Reading Time Taken Comments Blood Pressure 95/58 10/09/2017 11:47 AM EST Pulse 63 10/09/2017 11:47 AM EST Temperature 36.4 ??C (97.6 ??F) 10/09/2017 1 1:47 AM EST Respiratory Rate 16 10/09/2017 11:4 7 AM EST Oxygen Saturation 92% 10/09/2017 11: 47 AM EST Inhaled Oxygen Concentration - - Weight 94.3 kg (207 lb 12.8 oz) 018 11:47 AM EST Height 168.5 cm (5' 6.34) 10/09/2017 1 1:47 AM EST Body Mass Index 33.2 10/09/2017 11:47 AM EST documented in this encounter Progress Notes * Ricki Traylor MD - 10/09/2017 11:40 AM EST Subjective: Patient ID: Vikash Álvarez is a 76 y.o. male. HPI Patient is a pleasant 76 y.o. 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 His current concerns are: ? COPD - he notes the last medication he was tried on made him feel worse and he discontinued on his own. He is alittle unclear which medication this was but thinks it might be the tiotropium. ?? URI - he and his both had cough and dyspnea recently. She was treated with 10 d doxy . He went to same urgent care center in [facility] and given 5 day course of doxy . He denies current fever or chills. ?? Eye discomfort - he notes eye discomfort /pressure x 1-2 months. 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 Endocrine: Negative. Genitourinary: See HPI Musculoskeletal: See HPI Skin: Negative. Neurological: See HPI Objective: BP 95/58 (BP Location (NBP): Right arm, Patient Position: Sitting, BP Cuff Sizes: Adult (25-34 cm)) Pulse 63 Temp 36.4 ??C (97.6 ??F) (Oral) Resp 16 Ht 168.5 cm (5' 6.34) Wt 94.3 kg (207 lb 12.8 oz) SpO2 92% BMI 33.2 kg/m2 Patient reported measures: Pain:Decline to answer/Don't know Physical Health:Decline to answer/Don't know Fall: No flowsheet data found. Physical Exam HENT: N EOM, OSCAR, N TM, N sinus, N Pharynx, N LN, N Thyroid Cardiovascular: N s1s2 w/o s3s4 2-3/sys murmur best at aortic root Pulmonary/Chest: Effort normal and breath sounds normal. He has no wheezes. Abdominal: Soft. Bowel sounds are normal. There is no tenderness. Without HSM Musculoskeletal: N BPT, Full ROM Assessment and Plan: 1. Cough Ddx: atypical > viral - doxycycline monohydrate (MONODOX) 100 mg Capsule; Take 1 capsule by mouth 2 times daily for 5 days. Dispense: 10 capsule; Refill: 1 - Referral to Pulmonary Rehab 2. Eye pain, bilateral - Referral to Ophthalmology F/u prn F/u 3 mos documented in this encounter Plan of Treatment Upcoming Encounters Date Type Department Care Team (Late st Contact Info) Description 08/31/2024 10:00 AM EST Hospital Encounter Non-Invasive [place] [address] Arrived Scheduled Referrals Name Type Priority Associated Diagnoses Order Schedule Referral to Pulmonary Rehab Outpatient Referral Routine Cough Ordered: 10/09/2017 Referral to Ophthalmology Outpatient Referral Routine Eye pain, bilateral Ordered: 10/09/2017 documented as of this encounter Visit Diagnoses Diagnosis Cough Eye pain, bilateral documented in this encounter Care Teams Hat Trimmer Relationship Specialty Start Date End Date Ricki Traylor MD [facility] GENERAL [place] [address] PCP - General General Internal Medicine 05/30/1710/09 documented as of this encounter
--- OUTSIDE RECORDS SUMMARY | 2024-06-16 15:34 | XMS_ITS | Encounter Summary ---
Author Organization [facility] Address [facility] [place] [address] Care Team Providers Care Rug Washer Name Role Phone Ricki Traylor MD Primary Care Provider [phone] Encounter Details Date Type Department Care Team (Late st Contact Info) Description 06/03/2017 Abstract Internal Medicine at [address] [place] [address] Lashell Mckeon, [facility] Social History Tobacco Use Types Packs/Day Years [...] AM EST Hospital Encounter Non[place] [phone] Arrived documented as of this encounter Visit Diagnoses Not on filedocumented in this encounter Care Teams Rug Washer Relationship Specialty Start Date End Date Ricki Traylor MD [facility] [place] [address] PCP - General General Internal Medicine 05/30/1710/09 documented as of this encounter
--- OUTSIDE RECORDS SUMMARY | 2024-06-16 15:34 | XMS_ITS | Encounter Summary ---
[place] [address] Care Team Providers Care Cloth Mender Name Role Phone Ricki Traylor MD Primary Care Provider Reason for Visit * Reason Onset Date Comments Medication Refill 05/27/2018 Encounter Details Date Type Department Care Team (Late st Contact Info) Description 05/27/2018 Refill [place] [phone] Carol Almaraz Social History Tobacco Use Types Packs/Day Years [...] encounter Miscellaneous Notes * Telephone Encounter - Carol Almaraz - 05/27/2018 3:50 PM EDT Pt states he is completely out of this medication, please send to the pharmacy as soon as possible. documented in this encounter Plan of Treatment Upcoming Encounters Date Type Department Care Team (Late st Contact Info) Description 08/31/2024 10:00 AM EST Hospital Encounter Non-[place] [phone] Arrived documented as of this encounter Visit Diagnoses Not on filedocumented in this encounter Care Teams Cloth Mender Relationship Specialty Start Date End Date Ricki Traylor MD [facility] [place] [address] PCP - General General Internal Medicine 05/30/1710/09 documented as of this encounter
--- OUTSIDE RECORDS SUMMARY | 2024-06-16 15:34 | XMS_ITS | Encounter Summary ---
[facility] [place] [address] Care Team Providers Care Manager Intermediate Name Role Phone Ricki Traylor MD Primary Care Provider Reason for Visit * Reason Comments Follow-up Shortness of Breath Coronary Artery Disease Encounter Details Date Type Department Care Team (Latest Contact Info) Description 06/26/2017 3:00 PM EST Office Visit Cardiology at [address] [phone] Lola Freed, [employer] [facility] [place] [address] Coronary artery disease, angina presence unspecified, unspecified vessel or lesion type, unspecified whether [place] or transplanted heart; Edema of lower extremity; Aortic valve disease--- TAVR December 2016; Hyperlipidemia, unspecified hyperlipidemia type; Essential hypertension; H/O diastolic dysfunction Social History Tobacco Use Types Packs/Day Years [...] Sign Reading Time Taken Comments Blood Pressure 136/72 06/26/2017 2:59 PM EST Pulse 61 06/26/2017 2:59 PM EST Temperature - - Respiratory Rate - - Oxygen Saturation 95% 06/26/2017 2:59 PM EST 2L Inhaled Oxygen Concentration - - Weight 99.4 kg (219 lb 3.2 oz) 06/26/2017 2:59 P M EST Height 172.3 cm (5' 7.84) 06/26/2017 2:59 PM ES T Body Mass Index 33.49 06/26/2017 2:59 PM EST documented in this encounter Patient Instructions * Patient Instructions* Lola Machado APRN - 06/26/2017 3:00 PM EST Start lasix 20 mg once a day. Check lab work in 1 week Check weights daily and keep track of your weights. F/u in 3 months but please call clinic if you have increased shortness of breath, chest pain, or lightheadedness documented in this encounter Progress Notes * Lola Machado APRN - 06/26/2017 3:00 PM EST Images from the original note were not included. [facility] [place] [address] [address] General Cardiology Follow Up Subjective: Patient ID: Vikash Álvarez is a 76 y.o. male. CC: Follow up of recent hospitalization HPI: 76 y.o. male with past medical history of significant for 4V CABG (1994) with cardiac catheterization at [facility] in 2013 with PCI to SVG-RPDA, TAVR 12/2016, pacemaker for complete heart block, COPD, HTN, and hyperlipidemia, who is now s/p recent hospitalization for NSTEMI with subsequent PCI to his mid SVG to RPDA lesion. This lesion was a drug eluting in-stent restenosis lesion. He was discharged on DAPT therapy (aspirin and Plavix) along with optimization of his other guideline medical therapies. INTERIM: No hospitalizations or ED visits TODAY: I feel no better now than I did before the stent, or even than before the TAVR. He admits that his PCP believes he is COPD is worsening. He is not on any maintenance inhalers because they don't do anything for me. He does have a rescue inhaler that he uses every once in a while. He wearsO2 all night (has been using since his TAVR procedure). Now using intermittently throughout the day. Has been using it more during the day as with any activity his oxygen sat level will drop to the mid 70s. It will generally recover with oxygen and deep breathing to the mid 90s. Saw his PCP earliertoday. He currently denies any active chest pain, shortness of breath at rest, palpitations, near-syncope,or syncopal events. Patient Active Problem List Diagnosis ??? H/O diastolic dysfunction Assessment & Plan Note: Has +1 bilateral edema on exam, along with exertional shortness of breath which is likely mostly related to his advancing COPD. He was on Furosemide in the past, but was taken off he though due to side effects of bleeding, though he isn't sure. Will start Lasix 20 mg once daily and have him check labs in 1 week. Advised him to check his weights daily and to call the clinic if he notices an increase of 3 lbs in a day or 5 lbs in a week F/u in [address] ??? ST elevation (STEMI) myocardial infarction involving left anterior descending coronary artery ??? Pacemaker ??? SSS (sick sinus syndrome) ??? Vitamin D deficiency ??? Epidermoid cyst of skin ??? Essential hypertension Assessment & Plan Note: Stable today at 136/72, no changes in his medications. ??? Hyperlipidemia Assessment & Plan Note: Continues on current statin dose, no changes ??? Non-ST elevated myocardial infarction ??? Aortic valve disease--- TAVR December 2016 Overview Note: December 2016: Evolut [facility] at [facility] 05/19/17 echo: no prosthetic aortic valve regurg ??? Coronary disease---hx of CABG Overview Note: 1994: 4v CABG 2013: PCI of SVG 05/19/17: [facility] with PCI to mid SVG--RPDA Assessment & Plan Note: He has had no chest pain or jaw pain. No use of nitro since his discharge. He continues on aspirin,plavix, metoprolol, lisinopril, and atorvstatin. He was not deemed a candidate for cardiac rehab, but has tried to do some activity such as short distance walking on his own. He continues to strugglewith exertional shortness of breath, though this seems most consistent with his advancing COPD. Primary care and pulmonology to further manage. He was last seen by his metal grinder in [place], [place] prior to TAVR. Should consider establishing him with someone in the [facility] system. F/u in 3 months. ??? Chronic obstructive pulmonary disease ??? Prostate cancer--- treated with radical prostatectomy ROS: Constitutional: - fatigue, - fever, - chills Respiratory: + exertional shortness of breath, - cough, - apnea, - wheezing Cardiovascular: - chest pain, - palpitations, - unusual rates Gastrointestinal: - nausea, - vomiting, - abdominal pain, - diarrhea Neurological: - lightheadedness, - dizziness, - syncope, - weakness Psychiatric: - anxious Medications: Current Outpatient Prescriptions Medication Sig Dispense Refill ??? atorvastatin (LIPITOR) 40 mg Tablet Take 1 tablet by mouth every evening. 90 tablet 3 ??? clopidogrel (PLAVIX) 75 mg Tablet Take 1 tablet by mouth daily. 90 tablet 3 ??? aspirin (ASPIRIN) 81 mg Tablet, Chewable Take 81 mg by mouth daily. 30 tablet 3 ??? meTOPROLOL tartrate (LOPRESSOR) 50 mg Tablet Take 1 tablet by mouth 2 times daily. 180 tablet 3 ??? furosemide (LASIX) 20 mg Tablet Take 1 tablet by mouth daily. 90 tablet 3 ??? acetaminophen (TYLENOL) 325 mg Tablet Take 650 mg by mouth every 6 hours as needed. ??? lisinopril (PRINIVIL;ZESTRIL) 5 mg Tablet Take 1 tablet by mouth daily. 90 tablet 3 Objective: Vitals: Vitals: 06/26/17 1459 BP: 136/72 BP Location ([facility]): Left arm Patient Position: Sitting BP Cuff Sizes: Adult (25-34 cm) Pulse: 61 SpO2: 95% Weight: 99.4 kg (219 lb 3.2 oz) Height: 172.3 cm (5' 7.84) Physical Exam: General- No acute distress, sitting comfortably in exam room chair HEENT- Head atraumatic, normocephalic Skin- Warm, dry, and intact Neck- No JVD noted Cardiovascular- S1/S2 regular rate and rhythm. No murmur, rub or gallop Lungs- Fine crackle at the base, improves with cough, otherwise diminished, but clear to auscultation bilaterally Extremities- Pulses equal bilaterally. +1 bilateral edema noted Neuro- A&Ox3 Diagnostics: ECG in office today shows a normal sinus rhythm, septal q waves, TWI in leads 1 and aVL (consistentwith prior EKG). Echo 05/19/17: SUMMARY: 1. The left ventricular [...] above for more information.) Assessment and Plan: 76 y.o. with medical history significant for significant for 4V CABG (1994) with cardiac catheterization at [facility] in 2013 with PCI to SVG-RPDA, TAVR 12/2016, pacemaker for complete heart block, COPD, HTN, and hyperlipidemia, who is now s/p recent hospitalization for NSTEMI with subsequent PCI to his mid SVG to RPDA lesion. Plan: Problem List Items Addressed This Visit Aortic valve disease--- TAVR December 2016 (Chronic) Coronary disease---hx of CABG (Chronic) He has had no chest pain or jaw pain. No use of nitro since his discharge. He continues on aspirin,plavix, metoprolol, lisinopril, and atorvstatin. He was not deemed a candidate for cardiac rehab, but has tried to do some activity such as short distance walking on his own. He continues to strugglewith exertional shortness of breath, though this seems most consistent with his advancing COPD. Primary care and pulmonology to further manage. He was last seen by his metal grinder in [place] prior to TAVR. Should consider establishing him with someone in the [facility] system. F/u in 3 months. Relevant Orders EKG 12 Lead (Completed) Essential hypertension (Chronic) Stable today at 136/72, no changes in his medications. Hyperlipidemia (Chronic) Continues on current statin dose, no changes H/O diastolic dysfunction Has +1 bilateral edema on exam, along with exertional shortness of breath which is likely mostly related to his advancing COPD. He was on Furosemide in the past, but was taken off he though due to side effects of bleeding, though he isn't sure. Will start Lasix 20 mg once daily and have him check labs in 1 week. Advised him to check his weights daily and to call the clinic if he notices an increase of 3 lbs in a day or 5 lbs in a week F/u in 3 months. Other Visit Diagnoses Edema of lower extremity Relevant Orders Basic Metabolic Panel (non-fasting) Lola Freed APRN ([place]) General Cardiology 06/26/2017 Patient Instructions Start lasix 20 mg once a day. Check lab work in 1 week Check weights daily and keep track of your weights. F/u in 3 months but please call clinic if you have increased shortness of breath, chest pain, or lightheadedness documented in this encounter Miscellaneous Notes * Assessment & Plan Note - Lola Machado APRN - 06/26/2017 4:48 PM EST Associated Problem(s): H/O diastolic dysfunction (Deleted) Has +1 bilateral edema on exam, along with exertional shortness of breath which is likely mostly related to his advancing COPD. He was on Furosemide in the past, but was taken off he though due to side effects of bleeding, though he isn't sure. Will start Lasix 20 mg once daily and have him check labs in 1 week. Advised him to check his weights daily and to call the clinic if he notices an increase of 3 lbs in a day or 5 lbs in a week F/u in 3 months. * Assessment & Plan Note - Lola Machado APRN - 06/26/2017 4:45 PM EST Associated Problem(s): Essential hypertension (Deleted) Stable today at 136/72, no changes in his medications. * Assessment & Plan Note - Lola Machado APRN - 06/26/2017 4:45 PM EST Associated Problem(s): Hyperlipidemia Continues on current statin dose, no changes * Assessment & Plan Note - Lola Machado APRN - 06/26/2017 4:42 PM EST Associated Problem(s): Coronary arteriosclerosis He has had no chest pain or jaw pain. No use of nitro since his discharge. He continues on aspirin,plavix, metoprolol, lisinopril, and atorvstatin. He was not deemed a candidate for cardiac rehab, but has tried to do some activity such as short distance walking on his own. He continues to strugglewith exertional shortness of breath, though this seems most consistent with his advancing COPD. Primary care and pulmonology to further manage. He was last seen by his metal grinder in [place] prior to TAVR. Should consider establishing him with someone in the [facility] system. F/u in 3 months. documented in this encounter Plan of Treatment Upcoming Encounters Date Type Department Care Team (Late st Contact Info) Description 08/31/2024 10:00 AM EST Hospital Encounter Non-Invasive Cardiology Lab [place] [phone] Arrived documented as of this encounter Procedures Procedure Name Priority Date/Time Associated Diagnosis Comments EKG 12-LEAD Routine 06/26/2017 3:31 PM EST Coronary artery disease, angina presence unspecified, unspecified vessel or lesion type, unspecified whether [place] or transplanted heart documented in this encounter Results * EKG 12 Lead (06/26/2017 3:31 PM EST) Ventricular rate 63 BPM MUSE SYSTEM Atrial Rate 63 BPM MUSE SYSTEM P-R Interval 196 ms MUSE SYSTEM QRS Duration 92 ms MUSE SYSTEM Q-T Interval 426 ms MUSE SYSTEM QTC Calculated (Bezet) 435 ms MUSE SYSTEM Calculated P [place] 58 degrees MUSE SYSTEM Calculated R [place] -4 degrees MUSE SYSTEM Calculated T [place] 102 degrees MUSE SYSTEM INTERPRETATION Normal sinus rhythm Possible Septal infarct (cited on or before 18-MAY-2017) T wave abnormality, consider lateral ischemia Abnormal ECG When compared with ECG of 19-MAY-2017 16:34, No significant change was found Confirmed by MD ALVIN, JEWEL ([id number]) on 06/26/2017 4:57:20 PM MUSE SYSTEM 06/26/2017 3:31 PM EST 06/26/2017 4:57 PM EST Lola Freed APRN ECG ORDERABLES MUSE SYSTEM documented in this encounter Visit Diagnoses Diagnosis Coronary artery disease, angina presence unspecified, unspecified vessel or lesion type, unspecified whether [place] or transplanted heart Edema of lower extremity Edema Aortic valve disease--- TAVR December 2016 Aortic valve disorders Hyperlipidemia, unspecified hyperlipidemia type Essential hypertension Unspecified essential hypertension H/O diastolic dysfunction Personal history of other diseases of circulatory system documented in this encounter Care Teams Manager Intermediate Relationship Specialty Start Date End Date Ricki Traylor MD [facility] GENER[facility] INTER[facility] [place] [address] PCP - General General Internal Medicine 05/30/1710/09 documented as of this encounter
--- OUTSIDE RECORDS SUMMARY | 2024-06-16 15:34 | XMS_ITS | Encounter Summary ---
Author Organization [facility] Address [facility] [place] [address] Care Team Providers Care Electrical Accessories Ii Assembler Name Role Phone Ricki Traylor MD Primary Care Provider Encounter Details Date Type Department Care Team (Late st Contact Info) Description 08/24/2018 Telephone [place] [phone] Baron Hannon Social History Tobacco Use Types [...] AM EST Hospital Encounter Non-Invasive Cardiology [place] [phone] Arrived documented as of this encounter Visit Diagnoses Not on filedocumented in this encounter Care Teams Electrical Accessories Ii Assembler Relationship Specialty Start Date End Date Ricki Traylor MD [facility] [address] [place] [address] PCP - General General Internal Medicine 05/30/1710/09 documented as of this encounter
--- OUTSIDE RECORDS SUMMARY | 2024-06-16 15:34 | XMS_ITS | Encounter Summary ---
Author Organization [facility] Address [facility] [place] [address] Care Team Providers Care Custom Designer Name Role Phone Ricki Traylor MD Primary Care Provider [phone] Encounter Details Date Type Department Care Team (Latest Contact Info) Description 08/26/2017 Unscheduled [place] [phone] Yaneth Garcia RT COPD, very severe Social History Tobacco Use [...] as of this encounter Progress Notes * Yaneth Garcia RT - 08/26/2017 1:06 PM EST Home Oxygen Evaluation: Done with forehead sensor and finger pulse oximetry to compare readings. The finger pulse oximetry was erratic, unable to track heart rate and SpO2 correctly. On the forehead sensor: Resting SpO2 on room air: 92% HR: 62 Walked 200 feet on room air, SpO2: 83% HR: 75 Stopped rested and after 3 minutes of resting with pursed lip breathing improved to 90%. Resumed walk for 80 feet, desaturated to 88%. stopped Placed on O2 at 2 lpm: Resting SpO2 on 2 lpm O2: 97% HR: 63 Walked 100 feet on 2 lpm O2, SpO2: 93 HR: 67 Vikash Álvarez Noted severe dyspnea when desaturated to 83% during walk. Reviewed use of oxygen at 2 lpm with activity including showering, drying off, dressing and physical therapy. Pulmonary Rehabilitation/Home Exercise Program: Current Home Exercise: - arm exercises with 1 lb soup cans: able to do 6 repetitions Of overhead press. Currently working with OP physical therapy at [facility]: he understood that he desaturated to 74-75% on room air during the standing exercises. Placed on O2 at 1 lpm, rested, then does 10 minutes on the stationary bike without resistance and then 15 minutes on ? [employer]. -discussed having him start a walking program in the house with his oxygen at 2 lpm. He has a long hallway to walk back and forth in, with goal to get up to 10- 15 minutes per day. Reviewed pursed lip breathing, Vikash Álvarez able to demonstrate pursed lip breathing at rest and will practice at home, at rest and then with ambulation. MDI/DPI instruction for Vikash Álvarez: Inspiratory Flows Resistance via Incheck dial Peak Inspiratory Flow Rate in LPM Low resistance ( MDI/Respimat): ) 60 -Respimat: Instructed in assembly, priming and technique: Vikash Álvarez Able to demonstrate ability to assemble, prime and proper technique of Respimat, Inspiratory flow after instruction: 45-50 lpm Reviewed order on inhalers: Stiolto 1 puff once a day for 1 week Then increase to 2 puffs once a day Home Oxygen: Currently has [facility] [employer] office. Has home concentrator and portable tanks. Reviewed difference between portable oxygen concentrator and pulse dose on his tanks. He would prefer to keep his portable tank system. Plan to have Deborah evaluate for a conserving device for his portable tanks. documented in this encounter Plan of Treatment Upcoming Encounters Date Type Department Care Team (Late st Contact Info) Description 08/31/2024 10:00 AM EST Hospital Encounter Non-[place] [phone] Arrived documented as of this encounter Visit Diagnoses Diagnosis COPD, very severe Chronic airway obstruction, not elsewhere classified documented in this encounter Care Teams Custom Designer Relationship Specialty Start Date End Date Ricki Traylor MD [facility] [place] [address] PCP - General General Internal Medicine 05/30/1710/09 documented as of this encounter
--- OUTSIDE RECORDS SUMMARY | 2024-06-16 15:34 | XMS_ITS | Encounter Summary ---
[place] [address] Care Team Providers Care Community Education Specialist Name Role Phone Ricki Traylor MD Primary Care Provider [phone] Encounter Details Date Type Department Care Team (Late st Contact Info) Description 08/21/2018 Orders Only Cardiology at [address] [phone] Social History Tobacco Use Types Packs/Day Years Used Date Smoking Tobacco: Former Cigarettes 1 04 09 [phone] Smokeless Tobacco: Never Alcohol Use Standard Drinks/Week [...] AM EST Hospital Encounter [place] [phone] Arrived documented as of this encounter Procedures Procedure Name Priority Date/Time Associated Diagnosis Comments CARDIAC DEVICE CHECK - REMOTE PATIENT INITIATED Routine 08/21/2018 4:39 PM EST documented in this encounter Results * (ABNORMAL) Cardiac device check - Remote Patient Initiated (08/21/2018 4:39 PM EST) Date Time Interrogation Session [id number] IDCO Type Interrogation Session Remote Patient Initiated IDCO Clinic Name [facility] IDCO Battery Date Time of Measurements [id number] IDCO Battery Status Beginning of Service IDCO Battery Remaining Longevity 84 mo IDCO Battery Remaining Percentage 100 % IDCO Episode Identifier [id number] IDCO Episode Date Time [id number] IDCO Episode Type Category Periodic EGM IDCO Episode Vendor Type Category APMRT IDCO Episode Detection And Therapy Details Presenting EGM IDCO Episode Identifier [id number] IDCO Episode Date Time [id number] IDCO Episode Type Category Other IDCO Episode Vendor Type Category IDCO Episode Duration IDCO Episode Detection And Therapy Details RA Auto IDCO Episode Identifier RYMIQ IDCO Episode Date Time IDCO Episode Type Category Other IDCO Episode Vendor Type Category TAMIKO IDCO Episode Detection Interval Ventricular 1,250 ms IDCO Episode Detection And Therapy Details IDCO Episode Identifier Q IDCO Episode Date Time IDCO Episode Type Category Other IDCO Episode Vendor Type Category TAMIKO IDCO Episode Detection Interval Ventricular 1,224 ms IDCO Episode Duration 4,546 s IDCO Episode Detection And Therapy Details IDCO Episode Identifier Q IDCO Episode Date Time IDCO Episode Type Category Other IDCO Episode Vendor Type Category TAMIKO IDCO Episode Detection Interval Ventricular 1,200 ms IDCO Episode Duration 1,247 s IDCO Episode Detection And Therapy Details IDCO Episode Identifier Q IDCO Episode Date Time IDCO Episode Type Category Other IDCO Episode Vendor Type Category TAMIKO IDCO Episode Detection Interval Ventricular 1,224 ms IDCO Episode Duration 136 s IDCO Episode Detection And Therapy Details IDCO Episode Identifier RYQ IDCO Episode Date Time IDCO Episode Type Category Other IDCO Episode Vendor Type Category TAMIKO IDCO Episode Detection Interval Ventricular 1,200 ms IDCO Episode Duration 167 s IDCO Episode Detection And Therapy Details IDCO Episode Identifier [id number] IDCO Episode Date Time IDCO Episode Type Category Other IDCO Episode Vendor Type Category TAMIKO IDCO Episode Detection Interval Ventricular 1,277 ms IDCO Episode Duration 767 s IDCO Episode Detection And Therapy Details IDCO Episode Identifier [id number] IDCO Episode Date Time [id number] IDCO Episode Type Category Other IDCO Episode Vendor Type Category TAMIKO IDCO Episode Detection Interval Ventricular 1,091 ms IDCO Episode Duration 31,204 s IDCO Episode Detection And Therapy Details RYMIQ IDCO Episode Identifier [id number] IDCO Episode Date Time [id number] IDCO Episode Type Category Other IDCO Episode Vendor Type Category TAMIKO IDCO Episode Detection Interval Ventricular 1,017 ms IDCO Episode Duration 206 s IDCO Episode Detection And Therapy Details RYMIQ IDCO Episode Identifier [id number] IDCO Episode Date Time [id number] IDCO Episode Type Category Other IDCO Episode Vendor Type Category TAMIKO IDCO Episode Detection Interval Ventricular 1,111 ms IDCO Episode Duration 8,976 s IDCO Episode Detection And Therapy Details RYMIQ IDCO Episode Identifier [id number] IDCO Episode Date Time [id number] IDCO Episode Type Category Other IDCO Episode Vendor Type Category TAMIKO IDCO Episode Detection Interval Ventricular 1,154 ms IDCO Episode Duration 1,189 s IDCO Episode Detection And Therapy Details RYMIQ IDCO Episode Identifier [id number] IDCO Episode Date Time [id number] IDCO Episode Type Category Other IDCO Episode Vendor Type Category TAMIKO IDCO Episode Detection Interval Ventricular 1,132 ms IDCO Episode Duration 87 s IDCO Episode Detection And Therapy Details RYMIQ IDCO Episode Identifier ATR-4 IDCO Episode Date Time [id number] IDCO Episode Type Category AT/AF IDCO Episode Vendor Type Category ATR IDCO Episode Detection Interval Atrial 1,000 ms IDCO Episode Duration 1 s IDCO Episode Detection And Therapy Details ATR Avg V Rate in ATR: 60 bpm IDCO Episode Statistic Type Category VT IDCO Episode Statistic Vendor Type Category IDCO Episode Statistic Recent Count 0 IDCO Episode Statistic Recent Date Time Start 20180525 IDCO Episode Statistic Recent Date Time End 20180821 IDCO Episode Statistic Type Category SVT IDCO Episode Statistic Vendor Type Category SVT IDCO Episode Statistic Recent Count 0 IDCO Episode Statistic Recent Date Time Start 20180525 IDCO Episode Statistic Recent Date Time End 20180821 IDCO Episode Statistic Type Category VT IDCO Episode Statistic Vendor Type Category NSVT IDCO Episode Statistic Recent Count 0 IDCO Episode Statistic Recent Date Time Start 20180525 IDCO Episode Statistic Recent Date Time End 20180821 IDCO Episode Statistic Type Category AT/AF IDCO Episode Statistic Vendor Type Category ATR IDCO Episode Statistic Recent Count 1 IDCO Episode Statistic Recent Date Time Start 20180525 IDCO Episode Statistic Recent Date Time End 20180821 IDCO Episode Statistic Type Category Other IDCO Episode Statistic Vendor Type Category IDCO Episode Statistic Recent Count 0 IDCO Episode Statistic Recent Date Time Start 20180525 IDCO Episode Statistic Recent Date Time End 20180821 IDCO Zeferino Setting AT Mode Switch Mode [...] L311 IDCO Implantable Pulse Generator Serial Number [id number] IDCO Implantable Pulse Generator Science Writer [place] [employer] IDCO Implantable Pulse Generator Implant Date 20170108 IDCO Implantable Lead Model 7741 IDCO Implantable Lead Serial Number [id number] IDCO Implantable Lead Science Writer [place] [employer] IDCO Implantable Lead Implant Date IDCO Implantable Lead Polarity Type Bipolar Lead IDCO Implantable Lead Location Right Atrium IDCO Implantable Lead Model 312400 IDCO Implantable Lead Serial Number [id number] IDCO Implantable Lead Science Writer [place] [employer] IDCO Implantable Lead Implant Date IDCO Implantable Lead Polarity Type Bipolar Lead IDCO Implantable Lead Location Right Ventricle IDCO Lead Channel Measurements Date and Time Start 20180820 IDCO Lead Channel Measurements Date and Time End 20180821 IDCO Lead Channel Sensing Intrinsic Amplitude Mean 3.0 mV IDCO Lead Channel Sensing Polarity Bipolar IDCO Lead Channel Pacing Threshold Amplitude 0.7 V IDCO Lead Channel Pacing Threshold Pulse Width 0.4 ms IDCO Lead Channel Pacing Threshold Measurement Method Device Automatic IDCO Lead Channel Pacing Threshold Polarity Bipolar IDCO Lead Channel Impedance Value 592 ohms IDCO Lead Channel Impedance Polarity Bipolar IDCO Lead Channel Measurements Date and Time Start 20180821 IDCO Lead Channel Sensing Intrinsic Amplitude Mean mV IDCO Lead Channel Sensing Polarity Bipolar IDCO Lead Channel Pacing Threshold Amplitude V IDCO Lead Channel Pacing Threshold Measurement Method Device Automatic IDCO Lead Channel Pacing Threshold Polarity Bipolar IDCO Lead Channel Impedance Value 742 ohms IDCO Lead Channel Impedance Polarity Bipolar IDCO Statistic Date Time Start 20180525 IDCO Statistic Date Time End 20180821 IDCO Zeferino Statistic Date Time Start 20180525 IDCO Zeferino Statistic Date Time End 20180821 IDCO Zeferino Statistic RA Percent Paced 28 % IDCO Zeferino Statistic RV Percent Paced 70 % IDCO Atrial Tachy Statistic Date Time Start 20180527 IDCO Atrial Tachy Statistic Date Time End 20180821 IDCO Atrial Tachy Statistic AT/AF Arthur Percent 1(<) % IDCO Anatomical Region Laterality Modality Other 08/21/2018 4:39 PM EST Physician Cardiology IMPLANTABLE CARD IAC DEVICE documented in this encounter Visit Diagnoses Not on filedocumented in this encounter Care Teams Community Education Specialist Relationship Specialty Start Date End Date Ricki Traylor MD [facility] GENER[facility] [place] [address] PCP - General General Internal Medicine 05/30/1710/09 documented as of this encounter
--- OUTSIDE RECORDS SUMMARY | 2024-06-16 15:34 | XMS_ITS | Encounter Summary ---
Author Organization [facility] Address [facility] [place] [address] Care Team Providers Care Sale Professional Digital Marketing Name Role Phone Ricki Traylor MD Primary Care Provider [phone] Reason for Visit * Reason Onset Date Comments Medication Refill 07/01/2018 Encounter Details Date Type Department Care Team (Late st Contact Info) Description 07/01/2018 Refill Cardiology at [address] [phone] Juan Jose Mills MD [facility] [place] [address] Medication Refill Social History Tobacco Use Types [...] AM EST Hospital Encounter Non-[place] [phone] Arrived documented as of this encounter Visit Diagnoses Diagnosis Coronary artery disease without angina pectoris, unspecified vessel or lesion type, unspecified whether [place] or transplanted heart- Primary Aortic valve disease--- TAVR December 2016 Aortic valve disorders documented in this encounter Care Teams Sale Professional Digital Marketing Relationship Specialty Start Date End Date Ricki Traylor MD [facility] GENER[facility] [place] [address] PCP - General General Internal Medicine 05/30/1710/09 documented as of this encounter
--- OUTSIDE RECORDS SUMMARY | 2024-06-16 15:34 | XMS_ITS | Encounter Summary ---
Author Organization [facility] Address [facility] [place] [address] Care Team Providers Care Cafe Manager Name Role Phone Ricki Traylor MD Primary Care Provider [phone] Reason for Visit * Reason Comments Follow-up Encounter Details Date Type Department Care Team (Late st Contact Info) Description 11/18/2017 11:00 AM EDT Office [place] [address] Ricki Merino Jr., MD [facility] [place] [address] COPD, severe Social History Tobacco Use Types [...] Sign Reading Time Taken Comments Blood Pressure 120/60 11/18/2017 10:50 AM EDT Pulse 67 11/18/2017 10:50 AM EDT Temperature - - Respiratory Rate 20 11/18/2017 10:50 AM EDT Oxygen Saturation 90% 11/18/2017 10:50 AM EDT Inhaled Oxygen Concentration - - Weight 99.8 kg (220 lb) 11/18/2017 10:50 AM EDT Height 172.7 cm (5' 8) 11/18/2017 10:50 AM EDT Body Mass Index 33.45 11/18/2017 10:50 AM EDT documented in this encounter Progress Notes * Ricki Merino Jr., MD - 11/18/2017 11:00 AM EDT Pulmonary Return HPI: Mr. Álvarez is a 77 y.o. male with COPD who returns for follow-up. I last saw him in [facility]. His breathing is slowly improving. Had been dyspneic after walking 50 feet, now can [phone] yards. Pursuing muscle building exercises. Found inhaled medications didn't provide symptomatic benefit and if anything made his breathing worse. They increased the intensity of his cough. Currently not using inhaled medications. He is gradually recovering from his recent encounters with the medical system, and is working to increase activity so that he can get outside and be active when summer arrives. 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 Describes himself as a woodsman, enjoys hiking, hunting, fishing. Patient Active Problem List Diagnosis Code ??? Non-ST elevated myocardial infarction I21.4 ??? Aortic valve disease--- TAVR December 2016 I35.9 ??? Coronary disease---hx of CABG I25.10 ??? Chronic obstructive pulmonary disease J44.9 ??? Prostate cancer--- treated with radical prostatectomy C61 ??? Essential hypertension I10 ??? Hyperlipidemia E78.5 ??? Pacemaker Z95.0 ??? SSS (sick sinus syndrome) I49.5 ??? Vitamin D deficiency E55.9 ??? Epidermoid cyst of skin L72.0 ??? ST elevation (STEMI) myocardial infarction involving left anterior descending coronary artery I21.02 ??? H/O diastolic dysfunction Z86.79 Allergies Review of patient's allergies indicates no known allergies. Medications Current Outpatient Prescriptions on File Prior to Visit Medication Sig Dispense Refill ??? furosemide (LASIX) [...] mouth 2 times daily. 180 tablet 3 No current facility-administered medications on file prior to visit. Social History Social History ??? Marital status: Spouse name: N/A ??? Number of children: N/A ??? Years of education: N/A Occupational History ??? Not on file. Social History Main Topics ??? Smoking status: Former Smoker Packs/day: 1.00 Years: 25.00 Types: Cigarettes ??? Smokeless tobacco: Never Used ??? Alcohol use No ??? Drug use: No ??? Sexual activity: Not Currently Other Topics Concern ??? Not on file Social History Narrative Lives with Mikal, 52 [...] grew up and have lived in the [place] area their whole lives. 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 He likes to posey, fish, spend time with Isha, go to the beach, make art with [employer]. Wekeep very busy. NO reid practice. They have travelled the world extensively. Family History Problem Relation Age of Onset ??? Hypertension Father ??? Heart Disease Father ??? Diabetes Father ??? Cerebrovascular Accident Father ??? Heart Failure Mother ??? Hypertension Mother ??? Skin Cancer Neg Hx Review of Systems A complete review of systems was obtained. Positives are noted in the HPI. All remaining systems are negative. Physical Exam General Pleasant male in no acute respiratory distress. Vitals Pulse: 67 Weight 99.8 kg (220 lb). Body mass index is 33.45 kg/(m^2). O2 sat 90% on RA HEENT PER, EOMI. Neck Supple, no stridor. Trachea is midline. Lungs Clear to auscultation bilaterally. No crackles, wheezes, or pleural rubs. Chest excursion is symmetric. Cardiac Regular rhythm, no murmurs. Extremities No cyanosis, clubbing, or peripheral edema. Neuro Alert and oriented to name, time, and location. Ambulates without difficulty. Objective Data Laboratory 06/26/2017 Hgb 14.4; CO2 32 (H), [...] with severe to very severe airflow obstruction. Clinically improving, with improved exercise tolerance. I wonder how much of his prior reduction in vital capacity was related to chest wall restriction (e.g. From pain, weakness, etc.) I would like to repeat spirometry when he next sees me. For now he is making progress without inhaled medications, and has no wheezing on examination. I think it is reasonable to stay off of inhaled medications for now and continue to push the level of activity as tolerated. He may benefit from formal participation in pulmonary rehabilitation. --Vamsi Merino MD documented in this encounter Plan of Treatment Upcoming Encounters Date Type Department Care Team (Late st Contact Info) Description 08/31/2024 10:00 AM EST Hospital Encounter Non-[place] [phone] Arrived documented as of this encounter Visit Diagnoses Diagnosis COPD, severe Chronic airway obstruction, not elsewhere classified documented in this encounter Care Teams Cafe Manager Relationship Specialty Start Date End Date Ricki Traylor MD [facility] GENER[facility] [place] [address] PCP - General General Internal Medicine 05/30/1710/09 documented as of this encounter
--- OUTSIDE RECORDS SUMMARY | 2024-06-16 15:34 | XMS_ITS | Encounter Summary ---
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 and they tuned his pacemaker, everything looked good Encounter Details Date Type Department Care Team (Late st Contact Info) Description 08/24/2018 11:20 AM EST Office Visit [place] [address] Daniel Torres PA [facility] [place] [address] SOB (shortness of breath) Social History Tobacco Use Types Packs/Day Years Used Date Smoking Tobacco: Former Cigarettes 1 25 1 545 - 7286 Smokeless Tobacco: Never Alcohol Use Standard Drinks/Week Comments No 0 (1 standard drink = 0.6 oz pur e alcohol) Sex and Gender Information Value Date Recorded Sex Assigned at Not on file Gender Identity Not on file Sexual Orientation Not on file documented as of this encounter Last Filed Vital Signs Vital Sign Reading Time Taken Comments Blood Pressure 96/55 08/24/2018 11:27 AM EST Pulse 57 08/24/2018 11:27 AM EST Temperature 36.5 ??C (97.7 ??F) 08/24/2018 11:[address] Respiratory Rate 18 08/24/2018 11:27 AM EST Oxygen Saturation 97% 08/24/2018 11:27 AM EST Inhaled Oxygen Concentration - - Weight 91.4 kg (201 lb 6.4 oz) 08/24/2018 11:27 AM EST Height 173.4 cm (5' 8.27) 08/24/2018 11:[address] Body Mass Index 30.38 08/24/2018 11:27 AM EST documented in this encounter Progress Notes * Daniel Torres PA - 08/24/2018 11:20 AM EST Subjective: Vikash Álvarez, a 77 y.o. 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 His SOB had progressed to the point where walking out to [facility], which was a 20 foot walk, was enough to cause him a significant amount of difficulty. On Friday he decided to not go anywhere and rest, and today he feels much better. He saw cardiology earlier today who feel that his SOB may be related to changes in his pacing from his pacemaker, so an adjustment was made. He was able to walk to cardiology and walk down to us without any SOB outside of his normal. Denies any chest pain/pressure/palpitations, peripheral weakness, numbness, or tingling,vomiting, or any acid reflux. He feels that his symptoms are related to an URI that he is getting over. Symptoms include rhinorrhea, congestion, sore throat, cough, and overall malaise. This too is improving with conservative therapy. Review of Systems Constitutional: Negative for activity change, fatigue and unexpected weight change. Respiratory: Positive for shortness of breath. Cardiovascular: Negative for chest pain, palpitations and leg swelling. Neurological: Negative for light-headedness. Family History Problem Relation Age of Onset ??? Hypertension Father ??? Heart Disease Father ??? Diabetes Father ??? Cerebrovascular Accident Father ??? Cataracts Father ??? Macular Degeneration Father ??? Heart Failure Mother ??? Hypertension Mother ??? Skin Cancer Neg Hx ??? Cancer Neg Hx ??? Glaucoma Neg Hx ??? Retinal Detachment Neg Hx ??? Strabismus Neg Hx ??? Thyroid Disease Neg Hx Social History Tobacco Use ??? Smoking status: Former Smoker Packs/day: 1.00 Years: 25.00 Pack years: 25.00 Types: Cigarettes Last attempt to quit: 1980 Years since quittin.0 ??? Smokeless tobacco: Never Used Substance Use Topics ??? Alcohol use: No ??? Drug use: No Objective: BP 96/55 (BP Location (NBP): Right arm, Patient Position: Sitting, BP Cuff Sizes: Adult (25-34 cm)) Pulse 57 Temp 36.5 ??C (97.7 ??F) (Oral) Resp 18 Ht 173.4 cm (5' 8.27) Wt 91.4 kg (201 lb 6.4 oz) SpO2 97% BMI 30.38 kg/m?? BP Readings from Last 3 Encounters: 08/24/18 96/55 08/24/18 108/57 05/25/18 117/68 Wt Readings from Last 3 Encounters: 08/24/18 91.4 kg (201 lb 6.4 oz) 08/24/18 91.2 kg (201 lb) 05/25/18 92.1 kg (203 lb) Physical Exam Constitutional: He is oriented to person, place, and time. He appears well- developed and well-nourished. No distress. Cardiovascular: Normal rate, regular rhythm, normal heart sounds and intact distal pulses. Pulmonary/Chest: Effort normal and breath sounds normal. No respiratory distress. Neurological: He is alert and oriented to person, place, and time. Skin: Skin is warm and dry. He is not diaphoretic. Psychiatric: He has a normal mood and affect. Tests/Imaging/Procedures 1) None performed today. Assessment and Plan: 1. SOB (shortness of breath) Possibly related to a minor COPD exacerbation due to his current URI, however cardiac still possible given his abnormal pacing which was corrected today in cardiology. Given his history, I feel a DSEstress test should be ordered, however we agreed to give this another day or two to see if his symptoms continue to improve. If no improvement or if any new or worsening symptoms present, will have him FU for a stress test. Will have our nurses contact him to see how he is feeling tomorrow. - An After Visit Summary was printed and given to the patient. - Vikash was given the necessary information on his condition and instructed to return to clinic if symptoms continue or worsen. documented in this encounter Plan of Treatment Upcoming Encounters Date Type Department Care Team (Late st Contact Info) Description 08/31/2024 10:00 AM EST Hospital Encounter Non-Invasive [place] [address] Arrived documented as of this encounter Visit Diagnoses Diagnosis SOB (shortness of breath) Shortness of breath documented in this encounter Care Teams Land Sales Agent Relationship Specialty Start Date End Date Ricki Traylor MD [facility] GENER[facility] [place] [address] PCP - General General Internal Medicine 05/30/1710/09 documented as of this encounter
--- OUTSIDE RECORDS SUMMARY | 2024-06-16 15:34 | XMS_ITS | Encounter Summary ---
Author Organization [facility] [place] [address] Care Team Providers Care Mixed Livestock Farm Worker Name Role Phone Ricki Traylor MD Primary Care Provider [phone] Reason for Visit * Consultation (Routine) - Specialty Diagnoses / Procedures Referred By Contniurka t Referred To Contact Pulmonology Diagnoses COPD, very severe Ricki Traylor MD [facility] [place] [address] [facility] [address] [place] [address] Referral ID Status Reason Start Date Expiration Date Visits Requested Visits Authorized [id number] Specialty Service Requested 06/26/2017 06/26/2018 1 1 Encounter Details Date Type Department Care Team (Late st Contact Info) Description 08/26/2017 11:00 AM EST Office [place] [address] Ricki Merino Jr., MD [facility] [place] [address] COPD, very severe (Primary Dx) Social History Tobacco Use Types Packs/Day Years [...] Sign Reading Time Taken Comments Blood Pressure - - Pulse 64 08/26/2017 10:59 AM EST Temperature - - Respiratory Rate - - Oxygen Saturation 97% 08/26/2017 10:59 AM EST Inhaled Oxygen Concentration - - Weight 100.7 kg (222 lb) 08/26/2017 10:59 AM EST Height 170.2 cm (5' 7) 08/26/2017 10:59 AM EST Body Mass Index 34.77 08/26/2017 10:59 AM EST documented in this encounter Progress Notes * Ricki Merino Jr., MD - 08/26/2017 11:00 AM EST Pulmonary Consult Reason for Consult: I was asked by Dr. Ricki Traylor to evaluate this patient for COPD evaluation. I have personally interviewed and examined the patient, and reviewed his radiographic studies and laboratory data. HPI: Mr. Álvarez is a 76 y.o. male who presents for evaluation of COPD. He is currently off of all respiratory medications. He notes daily mucus production, generally very light oro in coloration. He has previously been tried on multiple inhalers without dramatic improvement in symptoms. In the past,breathing was quite good. He liked to swim and scuba dive in the , however, developed worsenedbreathing following an [place]. He lived with functional limitations until the past couple years, when he ultimately underwent cardiac stenting, bioprosthetic aortic valve replacement, and pacer placement. Additionally, he underwent back surgery in 2014. As a result of the above, he is left inactive and deconditioned. He is working with [facility], and has been starting physical therapy. He has concerns as home oxygen saturations have dropped as low as 74% improving to the 90% range with supplemental oxygen. He does not experience dyspnea during these apparent oxygen desaturations. He has home oxygen and uses it at jerilyn and as needed during the days for example when carrying in wood. He notes cold fingers, poor circulation. 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 Describes himself as a woodsman, enjoys hiking,hunting, fishing. Patient Active Problem List Diagnosis Code [...] Lives with Mikal, 53 years. Moved to [place] in April 2017 to be near their daughter (Lisa) at her request. She is very helpful to them. Lisa is with an 11 year old daughter (Isha). They have another daughter, Maddy, recently divorces and has moved to the [facility]. He and Mikal grew up and have lived in the [place] area their whole lives. 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 He likes to posey, fish, spend time with Isha, go to the beach, make art with [employer]. Wekeep very busy. NO reid practice. They [...] in no acute respiratory distress. Vitals Pulse: 64 Weight 100.7 kg (222 lb). Body mass index is 34.77 kg/(m^2). O2 sat 97% on RA HEENT PER, EOMI. Neck Supple, no stridor. Trachea is midline. Lungs Clear to auscultation bilaterally. No crackles, wheezes, or pleural rubs. Chest excursion is symmetric. Cardiac Regular rhythm, no murmurs. Abdomen Soft, non-tender, non-distended. Bowel sounds are normal. Extremities No cyanosis, clubbing, or peripheral edema. [...] RV 82%, DLCO 50% Assessment / Plan Mr. Álvarez is a pleasant and motivated man with severe to very severe airflow limitation which is not clearly obstructive or restrictive in nature. Based on FEV1/FVC ratio, I suspect airflow obstruction. This may be confounded by restriction related to chest wall abnormalities following sternotomy and/or back surgery. There is borderline evidence for CO2 retention based upon an isolated elevation in CO2. He has poor peripheral circulation leading to unreliable O2 pulse oximetry readings. Pulse oximetry done using forehead probe was normal at rest and with ambulation. Although I have no concerns with him using low level supplemental oxygen with activity, this therapy may not be necessary. He may consider alternative methods for measuring O2 saturation in the future. Based upon his poor airflow (severe to very severe airflow limitation) I have suggested a trial of stiolto respimat which is anticipated to provide greater penetration into the lower respiratory tree. Additionally, the combination of a LAMA and LABA may provide Mr. Álvarez with greater clinical benefit than with other single and combination medications tried in the past. Yaneth Garcia, RT, providedtraining in inhaler technique. Prescription sent to [facility] in [facility]. With improved oxygen delivery and improved bronchodilation, I hope that Mr. Álvarez will be able to increase his overall level of physical activity. I plan a follow-up appointment in 3 months. At that time I will not be checking specific tests, but would like a general reassessment of his clinical state. --Vamsi Merino MD documented in this encounter Plan of Treatment Upcoming Encounters Date Type Department Care Team (Late st Contact Info) Description 08/31/2024 10:00 AM EST Hospital Encounter Non-Invasive [place] [address] Arrived documented as of this encounter Visit Diagnoses Diagnosis COPD, very severe- Primary Chronic airway obstruction, not elsewhere classified documented in this encounter Care Teams Mixed Livestock Farm Worker Relationship Specialty Start Date End Date Ricki Traylor MD [facility] [place] [address] PCP - General General Internal Medicine 05/30/1710/09 documented as of this encounter
--- OUTSIDE RECORDS SUMMARY | 2024-06-16 15:34 | XMS_ITS | Encounter Summary ---
Author Organization [facility] Address [facility] [place] [address] Care Team Providers Care Etiquette Coach Name Role Phone Ricki Traylor MD Primary Care Provider [phone] Reason for Visit * Reason Comments Eye Pain * Consultation (Routine) - Closed Specialty Diagnoses / Procedures Referred By Contniurka romero Referred To Contact Ophthalmology Diagnoses Eye pain, bilateral Ricki Traylor MD [facility] [place] [address] Preeti Dela Cruz, XAVIER [facility] [place] [address] Referral ID Status Reason Start Date Expiration Date V isits Requested Visits Authorized [id number] Closed Consult, Test & Treat 10/09/2017 10/09/2018 1 1 Encounter Details Date Type Department Care Team (Late st Contact Info) Description 02/04/2018 2:40 PM EDT Office Visit Ophthalmology at [place] [phone] Preeti Dela Cruz OD [facility] [place] [address] Pseudophakia of both eyes; History of toxoplasmosis; Macular drusen, bilateral; 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 Warmcompresses with a clean washcloth followed by lid scrubs with either Lid Care or similar pre-medicate guaze pads or just dilute Angel's Baby Shampoo should help. As this is a chronic condition that took a long time to get, it won't go away overnight. Keep up with the treatment daily for at least a few weeks then try reducing to just a few times per week afterwards. Blepharitis is a common condition where the glands of the eyelids become blocked or inflamed. Theseglands secrete oils that are necessary for maintaining a healthy tear film over the eye. If the glands become clogged and inflamed, your eyes may feel dry, irritated, scratchy or burning. Other symptoms are redness, stickiness, grittiness, tearing and a ???film?? over the vision. If the condition is not treated, you may develop styes, chalazions (hard bumps on the lids) or lid scarring and loss of eyelashes. Blepharitis is often found in people that have rosacea which is a skin condition that consists of redness of the cheeks, forehead and nose. Fortunately, blepharitis is a very treatable condition. The mainstay of treatment is good daily cleansing of the eyelids and warm compresses. Here are the instructions: - Wash your hands and fingertips well. - Use a clean wash cloth soaked in hot (but not burning) water. Hold the cloth gently against your closed eyes and reheat the cloth every 2-3 minutes. Massage above the eyelids with your eyes closed. - After 10 minutes of application, with your eyes closed, take your fingers and gently rub across the lashes, freeing up any accumulated debris. Do this for 15- 30 seconds. Avoid touching the eyeball directly. - Rinse the lashes with water and pat dry. - You should do the above cleaning at least twice a day. The following are other things you can do for blepharitis. All products are sold over the counter. There are products called: ???SteriLid?? or ???Ocuscrub?? that can also be used on the fingertipsfor cleansing the lashes. These help to actually kill the bacteria that sometimes live on the lashes. Lid scrubs with either Lid Care or similar pre-medicate guaze pads or just dilute Angel's Baby Shampoo should help. Some people find a dietary capsule supplement of Caribou 3 Fatty Acids (EPA 450mg and DHA 300mg) and Flaxseed Oil (1000mg) help their eye comfort. Please take 2111-2576 mg of omega 3 fatty acids per day. These products can be bought in a health food store or there is a capsule called ???TheraTears Nutrition?? containing these ingredients. (If you have medical conditions, you should check [facility] to make sure it is safe for you to use this product). For dry eye, use AM and PM [...] DROPS Refresh PM Systane Gel GenTeal Gel Usually your eye comfort will improve after 4-6 weeks of treatment. If not, your eye doctor will discuss the situation with you. This is a chronic condition that took a long time to get, it won't go away overnight. Keep up with the treatment daily for at least a few weeks then try reducing to just a few times per week afterwards. documented in this encounter Progress Notes * Preeti Dela Cruz, OD - 02/04/2018 2:40 PM EDT Encounter Diagnoses Name Primary? Pseudophakia of both eyes ??? History of toxoplasmosis ??? Macular drusen, bilateral ??? 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 Astigmatism with presbyopia, bilateral Vikash J Dimmit is a 77 y.o. with the following ophthalmic problems: Assessment and Plan: Pseudophakia OU - Noted. H/O Toxoplasmosis OD, H/O RD - Pt [...] discussed with Vikash and he expressed understanding. -Upon Return CEE in 1 year, sooner with changes in sx/vision. documented in this encounter Plan of Treatment Upcoming Encounters Date Type Department Care Team (Late st Contact Info) Description 08/31/2024 10:00 AM EST Hospital Encounter Non-Invasive [place] [address] Arrived Scheduled Referrals Name Type Priority Associated Diagnoses Order Schedule Referral to Ophthalmology Outpatient Referral Routine Eye pain, bilateral Ordered: 10/09/2017 documented as of this encounter Visit Diagnoses Diagnosis Pseudophakia of both eyes Lens replaced by other means History of toxoplasmosis Personal history of other infectious and parasitic disease Macular drusen, 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
--- OUTSIDE RECORDS SUMMARY | 2024-06-16 15:34 | XMS_ITS | Encounter Summary ---
Author Organization [facility] Address [facility] [place] [address] Care Team Providers Care Wind Operations Manager Name Role Phone Ricki Traylor MD Primary Care Provider [phone] Reason for Visit * Reason Comments Rash On both ankles for l ast few months, very itchy, and spreading, Encounter Details Date Type Department Care Team (Late st Contact Info) Description 05/12/2018 10:00 AM EDT Office [place] [address] Daniel Torres PA [facility] [place] [address] Allergic dermatitis due to other chemical product Social History Tobacco Use Types Packs/Day Years [...] Sign Reading Time Taken Comments Blood Pressure 107/60 05/12/2018 9:44 AM EDT Pulse 63 05/12/2018 9:44 AM EDT Temperature 36.3 ??C (97.4 ??F) 05/12/2018 9:44 AM ED T Respiratory Rate 20 05/12/2018 9:44 AM EDT Oxygen Saturation 98% 05/12/2018 9:44 AM EDT Inhaled Oxygen Concentration - - Weight 93 kg (205 lb) 05/12/2018 9:44 AM EDT Height 172.2 cm (5' 7.8) 05/12/2018 9:44 AM EDT Body Mass Index 31.36 05/12/2018 9:44 AM EDT documented in this encounter Progress Notes * Daniel Torres PA - 05/12/2018 10:00 AM EDT Images from the original note were not included. Subjective: Vikash Álvarez, a 77 y.o. 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 He was wearing pants, however the chemicals sprayed on his pants, and after putting boots on over them, he thinks the sweat may have caused him to absorb some of the chemicals into his skin. Rash is very pruritic and spread up his legs bilaterally. He has tried multiple OTC therapies, however has not tried any steroid creams. Denies any drainage or pustule formations. Review of Systems Constitutional: Negative for activity change, fatigue and unexpected weight change. Respiratory: Negative for shortness of breath. Cardiovascular: Negative for chest pain, palpitations and leg swelling. Skin: Positive for rash. Neurological: Negative for light-headedness. Family History Problem [...] ??? Thyroid Disease Neg Hx Social History Substance Use Topics ??? Smoking status: Former Smoker Packs/day: 1.00 Years: 25.00 Types: Cigarettes ??? Smokeless tobacco: Never Used ??? Alcohol use No Objective: BP 107/60 (BP Location (NBP): Right arm, Patient Position: Sitting, BP Cuff Sizes: Adult (25-34 cm)) Pulse 63 Temp 36.3 ??C (97.4 ??F) (Oral) Resp 20 Ht 172.2 cm (5' 7.79) Wt 93 kg (205 lb) SpO2 98% BMI 31.36 kg/m2 BP Readings from Last 3 Encounters: 05/12/18 107/60 02/04/18 105/61 01/15/18 120/70 Wt Readings from Last 3 Encounters: 05/12/18 93 kg (205 lb) 02/04/18 92.5 kg (204 lb) 01/15/18 91.6 kg (202 lb) Physical Exam Constitutional: He is oriented to person, place, and time. He appears well- developed and well-nourished. No distress. Pulmonary/Chest: Effort normal. No respiratory distress. Neurological: He is alert and oriented to person, place, and time. Skin: Skin is warm and dry. Rash noted. He is not diaphoretic. Psychiatric: He has a normal mood and affect. His speech is normal and behavior is normal. Thought content normal. Tests/Imaging/Procedures 1) None performed today. Assessment and Plan: 1. Allergic dermatitis due to other chemical product Contact derm vs early venous insufficiency/hemosiderin deposits. Betamethasone- clotrimazole cream prescribed. FU 1-2 if no improvement. - An After Visit Summary was printed and given to the patient. - Vikash was given the necessary information on his condition and instructed to return to clinic if symptoms continue or worsen. documented in this encounter Plan of Treatment Upcoming Encounters Date Type Department Care Team (Late st Contact Info) Description 08/31/2024 10:00 AM EST Hospital Encounter Non-Invasive [place] [address] Arrived documented as of this encounter Visit Diagnoses Diagnosis Allergic dermatitis due to other chemical product documented in this encounter Care Teams Wind Operations Manager Relationship Specialty Start Date End Date Ricki Traylor MD [facility] GENERAL [place] [address] PCP - General General Internal Medicine 05/30/1710/09 documented as of this encounter
--- OUTSIDE RECORDS SUMMARY | 2024-06-16 15:34 | XMS_ITS | Encounter Summary ---
Author Organization [facility] Address [facility] [place] [address] Care Team Providers Care Oil Rig Roughneck Name Role Phone Ricki Traylor MD Primary Care Provider [phone] Encounter Details Date Type Department Care Team (Late st Contact Info) Description 07/25/2017 Orders [place] [phone] Ricki Merino Jr., MD [facility] [place] [address] Chronic obstructive pulmonary disease, unspecified COPD type [...] AM EST Hospital Encounter Non-[place]vasive [place] [phone] Arrived documented as of this encounter Results * Pulmonary Function Testing (08/26/2017 3:58 PM EST) Narrative Lisa Pugh MD - 08/26/2017 3:58 PM EST Lisa Pugh MD ? 08/26/2017 ??3:58 PM A significant ambulatory oxygen desaturation (greater than 4% drop from the resting baseline) ??was seen after 600 ft ambulation, when SpO2 was 90 %. ?? Lisa Pugh MD Section of Pulmonary [facility]. Ricki Merino Jr., MD PFT ORDERABLES documented in this encounter Visit Diagnoses Diagnosis Chronic obstructive pulmonary disease, unspecified COPD type Chronic obstructive pulmonary disease, unspecified COPD type documented in this encounter Care Teams Oil Rig Roughneck Relationship Specialty Start Date End Date Ricki Traylor MD [facility] [place] [address] PCP - General General Internal Medicine 05/30/1710/09 documented as of this encounter
--- OUTSIDE RECORDS SUMMARY | 2024-06-16 15:34 | XMS_ITS | Encounter Summary ---
Author Organization [facility] Address [facility] [place] [address] Care Team Providers Care Technical Analyst Name Role Phone Ricki Traylor MD Primary Care Provider [phone] Encounter Details Date Type Department Care Team (Late st Contact Info) Description 04/24/2018 [place] [phone] Vasiliy Rodriguez, RN Social History Tobacco Use Types Packs/Day [...] AM EST Hospital Encounter Non-[place] [address] Arrived documented as of this encounter Visit Diagnoses Not on filedocumented in this encounter Care Teams Technical Analyst Relationship Specialty Start Date End Date Ricki Traylor MD [facility] GENERAL [place] [address] PCP - General General Internal Medicine 05/30/1710/09 documented as of this encounter
--- OUTSIDE RECORDS SUMMARY | 2024-06-16 15:34 | XMS_ITS | Encounter Summary ---
Author Organization [facility] [place] [address] Care Team Providers Care Procedure Manager Name Role Phone Ricki Traylor MD Primary Care Provider [phone] Encounter Details Date Type Department Care Team (Late st Contact Info) Description 02/04/2018 3:00 PM EDT Office Visit Cardiology at [address] [phone] Rae Graham RN SSS (sick sinus syndrome) Social History Tobacco Use Types Packs/Day Years [...] Sign Reading Time Taken Comments Blood Pressure 105/61 02/04/2018 4:28 PM EDT Pulse 72 02/04/2018 4:28 PM EDT Temperature - - Respiratory Rate - - Oxygen Saturation 92% 02/04/2018 4:28 PM EDT Inhaled Oxygen Concentration - - Weight 92.5 kg (204 lb) 02/04/2018 4:28 PM EDT Height 172.7 cm (5' 8) 02/04/2018 4:28 PM EDT Body Mass Index 31.02 02/04/2018 4:28 PM EDT documented in this encounter Progress Notes * Rae Graham, RN - 02/04/2018 3:00 PM EDT Images from the original note were not included. Clinical Electrophysiology Device Service Note Vikash Álvarez is a 77 y.o. male who presents today to establish care with our clinic after moving to the area form [place]. He had a pacemaker implanted January 08, 2017 for SSS. He is status post TAVRin January 2017, both performed at [facility].He takes Plavix. He also has history of COPD, CVA, HTN,STEMI, Coronary Stent and visual disturbance. PCP: Ricki Traylor MD Store Group Manager: Dr Mills Final Parameters at implant:( Please obtain lead info at next visit.) Ventricular electrode: Atrial electrode: Pulse generator: Accolade MRI L311 Serial # [id number] January 08, 2017 Settings: DDDR with Rythmiq ON 60/130 Underlying rhythm: SR 68 bpm Atrial Lead: P wave: 1.2 mV Impedance: 576 ohms Threshold: 0.7 V @ 0.4 ms Ventricular Lead: R wave: >25 mV Impedance: 774 ohms Threshold: 1.1 V @ 0.4 ms Heart rate histograms: Good distribution with some left shifting heart rarely gets above 90 bpm Pacing percentages: AP 20 %; ALMOND SORTER <1 % Mode switch episodes: <1% burden for 3 episodes <1 minute duration, brief AT/AFL was noted VHR: Since February he has had 2 Episodes of VHR. 1 episode of NSVT 11/28/17 for 15 seconds at a rate of 180 bpm for 15 beats and then another 8 beats The other was SVT at 170 bpm for 13 seconds 11/07/17 Battery voltage: Est 8.5 years remaining Wound assessment: Well healed with good coverage Reprogramming: Rate response Accelerometer turned ON and RYTHMIQ turned ON MV turned OFF Plan: Remote in 3 mos. RTC in 1 year- Remote transferred Provider: Rae Graham RN Attending: Dr Sinha Addendum I have personally reviewed the device interrogation as performed by Rae Graham RN Dual chamber PPM Minimal V pacing Non sustained VT is seen Brief atrial high rate events Normal device function Summary 1) Normal device function - reprogrammed as above 2) Routine follow up as planned GABRIEL SINHA MD documented in this encounter Plan of Treatment Upcoming Encounters Date Type Department Care Team (Late st Contact Info) Description 08/31/2024 10:00 AM EST Hospital Encounter Non-Invasive [place] [address] Arrived documented as of this encounter Visit Diagnoses Diagnosis SSS (sick sinus syndrome) Sinoatrial node dysfunction documented in this encounter Care Teams Procedure Manager Relationship Specialty Start Date End Date Ricki Traylor MD [facility] GENERAL [place] [address] PCP - General General Internal Medicine 05/30/1710/09 documented as of this encounter
--- OUTSIDE RECORDS SUMMARY | 2024-06-16 15:34 | XMS_ITS | Encounter Summary ---
Author Organization [facility] Address [facility] [place] [address] Care Team Providers Care Technical Developer Name Role Phone Ricki Traylor MD Primary Care Provider [phone] Encounter Details Date Type Department Care Team (Late st Contact Info) Description 05/25/2018 11:00 AM EDT Office Visit Cardiology at [address] [phone] Juan Jose Mills MD [facility] [place] [address] Coronary artery disease without angina pectoris, unspecified vessel or lesion type, unspecified whether redding or transplanted heart; Aortic valve disease--- TAVR December 2016 Social [...] Sign Reading Time Taken Comments Blood Pressure 117/68 05/25/2018 11:14 AM EDT Pulse 61 05/25/2018 11:14 AM EDT Temperature - - Respiratory Rate - - Oxygen Saturation 91% 05/25/2018 11:14 AM EDT Inhaled Oxygen Concentration - - Weight 92.1 kg (203 lb) 05/25/2018 11:14 AM EDT Height - - Body Mass Index 31.05 05/12/2018 9:44 AM EDT documented in this encounter Progress Notes * Juan Jose Mills MD - 05/25/2018 11:00 AM EDT Images from the original note were not included. CARDIOVASCULAR MEDICINE [place] [address] Subjective: Rupesh Álvarez is a 77 y.o. patient of Ricki Traylor MD with the following cardiovascular issues: 1. Coronary disease--- 4v CABG in 1994 with PCI of SVG in 2013, redo PCI due to ISR in May 2017 2. Aortic valve disease--- TAVR in December 2016 done at [facility] 3. 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 Lives with his in [facility]. Present Illness Seen today to follow up on his cardiovascular problems. Last seen in January by Lola Freed APRN. He is here with his . I have not seen him since he was an inpatient last May. He complains of palpitations particularly at night. Remote download of his pacemaker last week showed no evidence of arrhythmias. He is using supplemental oxygen at night and during the day complains primarily of impaired exercise tolerance. He is not doing much in way of physical activity but he is doing some turkeyhunting. Medications Current Outpatient Medications: ??? metoprolol tartrate (LOPRESSOR) 50 mg Tablet, Take 1 tablet by mouth 2 times daily., Disp: 180 tablet, Rfl: 3 ??? atorvastatin (LIPITOR) 40 mg Tablet, Take 1 tablet by mouth every evening., Disp: 90 tablet, Rfl: 3 ??? furosemide (LASIX) 20 mg Tablet, Take 1 tablet by mouth daily., Disp: 90 tablet, Rfl: 3 ??? lisinopril (PRINIVIL;ZESTRIL) 5 mg Tablet, Take 1 tablet by mouth daily., Disp: 90 tablet, Rfl:3 ??? clopidogrel (PLAVIX) 75 mg Tablet, Take 1 tablet by mouth daily., Disp: 90 tablet, Rfl: 3 ??? aspirin (ASPIRIN) 81 mg Tablet, Chewable, Take 81 mg by mouth daily., Disp: 30 tablet, Rfl: 3 Objective: Physical Exam BP 117/68 Pulse 61 Wt 92.1 kg (203 lb) SpO2 91% BMI 31.05 kg/m?? , Body mass index is 31.05kg/m??. On examination, is a pleasant heavy man in good spirits. His skin is warm and dry. Lungs show diminished air movement in all lung robles but no wheezes or crackles. Jugular venous pressure not elevated. No carotid bruits. Heart sounds are regular without murmurs rubs or gallops. Abdomen is obese soft nontender. Device interrogation revealed no arrhythmias. His accelerated accelerometer was turned on but his minute ventilation activity sensor was not. Labs Lab Results Component Value Date NA 141 06/26/2017 K 4.9 06/26/2017 CL 99 06/26/2017 CO2 32 (H) 06/26/2017 BUN 26 (H) 06/26/2017 CREATININE 1.10 06/26/2017 CHLPL 139 06/26/2017 HDL 46 06/26/2017 CHOLHDL 3.0 06/26/2017 Assessment and Plan 1. Sense of palpitations: I am not sure how to explain this. There is no evidence of arrhythmias. 2. Impaired exercise tolerance. This may be related to some degree of chronotropic incompetence. Wewill see what up fact adjustment in his activity sensor has. 3. Valvular heart disease: Stable. No exam evidence of dysfuction. No need for pacer. Follow up in one year. Juan Jose Mills MD [facility] cc: ?? Ricki Traylor MD [facility] GENERAL INTERNAL MEDICINE / HEAVENER N* documented in this encounter Plan of Treatment Upcoming Encounters Date Type Department Care Team (Late st Contact Info) Description 08/31/2024 10:00 AM EST Hospital Encounter Non-[place] [address] Arrived documented as of this encounter Visit Diagnoses Diagnosis Coronary artery disease without angina pectoris, unspecified vessel or lesion type, unspecified whether redding or transplanted heart Aortic valve disease--- TAVR December 2016 Aortic valve disorders documented in this encounter Care Teams Technical Developer Relationship Specialty Start Date End Date Ricki Traylor MD [facility] GENER[facility] [place] [address] PCP - General General Internal Medicine 05/30/1710/09 documented as of this encounter
--- OUTSIDE RECORDS SUMMARY | 2024-06-16 15:34 | XMS_ITS | Encounter Summary ---
Author Organization [facility] [place] [address] Care Team Providers Care Hydrotel Operator Name Role Phone Ricki Traylor MD Primary Care Provider [phone] Encounter Details Date Type Department Care Team (Late st Contact Info) Description 06/03/2017 External Results Internal Medicine at [facility] [address] [place] [phone] Holly Giraldo MA Social History Tobacco Use Types Packs/Day Years [...] AM EST Hospital Encounter Non-[place] [phone] Arrived documented as of this encounter Procedures Procedure Name Priority Date/Time Associated Diagnosis Comments EXTERNAL LAB CBC CMP THYROID RESULTS PANEL Routine 01/22/2017 11:20 AM EDT documented in this encounter Results * (ABNORMAL) CBC / CMP / Thyroid External Results (01/22/2017 11:20 AM EDT) White Blood Cell 5.3(Exter nal Lab) EXTERNAL LAB Red Blood Cell 3.91(ExtL ) EXTERNAL LAB Hemoglobin 13.1(ExtL ) EXTERNAL LAB Hematocrit 39.8(ExtL ) EXTERNAL LAB Mean Cell Volume 101.8(Ext H) EXTERNAL LAB Platelet 169(Exter nal Lab) EXTERNAL LAB Sodium 139(Exter nal Lab) EXTERNAL LAB Potassium 4.4(Exter nal Lab) EXTERNAL LAB Chloride 103(Exter nal Lab) EXTERNAL LAB Carbon Dioxide 31([facility]urt[facility] Worker al Lab) EXTERNAL LAB Blood Urea Nitrogen 15([facility] Work[facility] Lab) EXTERNAL LAB Creatinine 1.04(Exte rnal Lab) EXTERNAL LAB Est Glomerular Filtration Rate >60(Exter nal Lab) EXTERNAL LAB Glucose 145(ExtH) EXTERNAL LAB Calcium 9.0(Exter nal Lab) EXTERNAL LAB Protein, Total 6.4(Exter nal Lab) EXTERNAL LAB Albumin 3.8(Exter nal Lab) EXTERNAL LAB Bilirubin, Total 0.9(Exter nal Lab) EXTERNAL LAB Alkaline Phosphatase 68([facility] Worker [facility]) EXTERNAL LAB Aspartate Aminotransferase 28([facility] Work[facility]) EXTERNAL LAB Alanine Aminotransferase 25([facility] Work[facility]) EXTERNAL LAB Mean Cell Hemoglobin Concentration 32.9(Exte rnal Lab) EXTERNAL LAB RDW coefficient of variation 13.9(Exte rnal Lab) EXTERNAL LAB Mean Cell Hemoglobin 33.5(ExtH ) EXTERNAL LAB 01/22/2017 11:2 0 AM EDT Historical Provider EXTERNAL LAB MAGDALENA GARZA EXTERNAL LAB documented in this encounter Visit Diagnoses Not on filedocumented in this encounter Care Teams Hydrotel Operator Relationship Specialty Start Date End Date Ricki Traylor MD [facility] [place] [address] PCP - General General Internal Medicine 05/30/1710/09 documented as of this encounter
--- OUTSIDE RECORDS SUMMARY | 2024-06-16 15:34 | XMS_ITS | Encounter Summary ---
Author Organization [facility] [place] [address] Care Team Providers Care Regional Economist Name Role Phone Ricki Traylor MD Primary Care Provider Encounter Details Date Type Department Care Team (Late st Contact Info) Description 08/21/2018 Telephone Cardiology at [address] [phone] Tino-Shena Vera, RN Social History Tobacco Use Types Packs/Day Years Used Date Smoking Tobacco: Former Cigarettes 1 25 1 [phone] - [phone] Smokeless Tobacco: Never Alcohol Use Standard Drinks/Week Comments No 0 (1 standard drink = 0.6 oz pur e alcohol) Sex and Gender Information Value Date Recorded Sex Assigned at Not on file Gender Identity Not on file Sexual Orientation Not on file documented as of this encounter Miscellaneous Notes * Telephone Encounter - Shena Jiménez, RN - 08/21/2018 4:24 PM EST RTC to pt who reports that he is not feeling well and wants a device check. Pt reports SOB with minimal activity for the past 2 weeks but has worsened over the last 5 days. Pt is known COPD pt and wears o2 at [facility] only at 2LPM. Pt denies any increased demand for O2 during the daytime hours. Pt denies fever, chills, cough or edema in LE's. Pt does report he has had a runny nose for the past 1 monthor so. Pt is asked to download a transmission from his [employer]. Pt sends download and is received here in clinic. Device clinic nurse Shabnam reviewed download. It is noted that pt is pacing more in his ventricles since he was last seen in device clinic. We will have pt see his PCP and coordinatethat appt with our Device Clinic nurse in 4A Cardiology. Pt in agreement with this plan. Spoke with [facility] and pt is scheduled with Mark COLINDRES on Friday08/24/18 at 11:40. Will have pt see device Clinic nurse at 10:30 am prior to this appt. Pt is asked to come in early for this apptto facilitate both provider schedules. Pt will arrive early (10:15) to cardiology. Will update Mark COLINDRES. documented in this encounter Plan of Treatment Upcoming Encounters Date Type Department Care Team (Late st Contact Info) Description 08/31/2024 10:00 AM EST Hospital Encounter Non-[place] [address] Arrived documented as of this encounter Visit Diagnoses Not on filedocumented in this encounter Care Teams Regional Economist Relationship Specialty Start Date End Date Ricki Traylor MD [facility] [place] [address] PCP - General General Internal Medicine 05/30/1710/09 documented as of this encounter
--- OUTSIDE RECORDS SUMMARY | 2024-06-16 15:34 | XMS_ITS | Encounter Summary ---
Author Organization [facility] [place] [address] Care Team Providers Care Trouble Tracer Name Role Phone Ricki Traylor MD Primary Care Provider [phone] Encounter Details Date Type Department Care Team (Late st Contact Info) Description 04/28/2018 Notes [place] [phone] Kiran Workman RN Social History Tobacco Use Types Packs/Day [...] as of this encounter Progress Notes * Kiran Workman RN - 04/28/2018 10:24 AM EDT CMN for 02 filled out, signed, and faxed to [facility] at [phone] documented in this encounter Plan of Treatment Upcoming Encounters Date Type Department Care Team (Late st Contact Info) Description 08/31/2024 10:00 AM EST Hospital Encounter Non-[place] [address] Arrived documented as of this encounter Visit Diagnoses Not on filedocumented in this encounter Care Teams Trouble Tracer Relationship Specialty Start Date End Date Ricki Traylor MD [facility] [address] PCP - General General Internal Medicine 05/30/1710/09 documented as of this encounter
--- OUTSIDE RECORDS SUMMARY | 2024-06-16 15:34 | XMS_ITS | Encounter Summary ---
[place] [address] Care Team Providers Care Bullard Machine Operator Name Role Phone Ricki Traylor MD Primary Care Provider [phone] Encounter Details Date Type Department Care Team (Late st Contact Info) Description 08/26/2018 Orders Only Cardiology at [address] [phone] Social History Tobacco Use Types Packs/Day Years Used Date Smoking Tobacco: Former Cigarettes 1 04 09 565 - 0429 Smokeless Tobacco: Never Alcohol Use Standard Drinks/Week [...] AM EST Hospital Encounter Non-[place]vasive [place] [phone] Arrived documented as of this encounter Procedures Procedure Name Priority Date/Time Associated Diagnosis Comments CARDIAC DEVICE CHECK - REMOTE SCHEDULED Routine 08/26/2018 3:20 AM EST documented in this encounter Results * Cardiac device check - Remote Scheduled (08/26/2018 3:20 AM EST) Date Time Interrogation Session [id number] IDCO Type Interrogation Session Remote Scheduled IDCO Clinic Name [facility] IDCO Battery Date Time of Measurements IDCO Battery Status Beginning of Service IDCO Battery Remaining Longevity 84 mo IDCO Battery Remaining Percentage 100 % IDCO Episode Identifier [id number] IDCO Episode Date Time IDCO Episode Type Category Periodic EGM IDCO Episode Vendor Type Category APMRT IDCO Episode Detection And Therapy Details Presenting EGM IDCO Episode Identifier [id number] IDCO Episode Date Time IDCO Episode Type Category Other IDCO Episode Vendor Type Category IDCO Episode Duration IDCO Episode Detection And Therapy Details RA Auto IDCO Episode Identifier [id number] IDCO Episode Date Time IDCO Episode Type Category Other IDCO Episode Vendor Type Category IDCO Episode Duration IDCO Episode Detection And Therapy Details RV Auto IDCO Episode Statistic Type Category VT IDCO Episode Statistic Vendor Type Category IDCO Episode Statistic Recent Count 0 IDCO Episode Statistic Recent Date Time Start 20180824 IDCO Episode Statistic Recent Date Time End 20180826 IDCO Episode Statistic Type Category SVT IDCO Episode Statistic Vendor Type Category SVT IDCO Episode Statistic Recent Count 0 IDCO Episode Statistic Recent Date Time Start 20180824 IDCO Episode Statistic Recent Date Time End 20180826 IDCO Episode Statistic Type Category VT IDCO Episode Statistic Vendor Type Category NSVT IDCO Episode Statistic Recent Count 0 IDCO Episode Statistic Recent Date Time Start 20180824 IDCO Episode Statistic Recent Date Time End 20180826 IDCO Episode Statistic Type Category AT/AF IDCO Episode Statistic Vendor Type Category ATR IDCO Episode Statistic Recent Count 0 IDCO Episode Statistic Recent Date Time Start 20180824 IDCO Episode Statistic Recent Date Time End 20180826 IDCO Episode Statistic Type Category Other IDCO Episode Statistic Vendor Type Category IDCO Episode Statistic Recent Count 0 IDCO Episode Statistic Recent Date Time Start 20180824 IDCO Episode Statistic Recent Date Time End 20180826 IDCO Zeferino Setting AT Mode Switch Mode [...] L311 IDCO Implantable Pulse Generator Serial Number [id number] IDCO Implantable Pulse Generator Experimental Aircraft Mechanic [employer] IDCO Implantable Pulse Generator Implant Date 20170108 IDCO Implantable Lead Model 7741 IDCO Implantable Lead Serial Number [id number] IDCO Implantable Lead Experimental Aircraft Mechanic [employer] IDCO Implantable Lead Implant Date IDCO Implantable Lead Polarity Type Bipolar Lead IDCO Implantable Lead Location Right Atrium IDCO Implantable Lead Model 941918 IDCO Implantable Lead Serial Number [id number] IDCO Implantable Lead Experimental Aircraft Mechanic [employer] IDCO Implantable Lead Implant Date IDCO Implantable Lead Polarity Type Bipolar Lead IDCO Implantable Lead Location Right Ventricle IDCO Lead Channel Measurements Date and Time Start 20180824 IDCO Lead Channel Sensing Intrinsic Amplitude Mean 3.3 mV IDCO Lead Channel Sensing Polarity Bipolar IDCO Lead Channel Pacing Threshold Amplitude 0.6 V IDCO Lead Channel Pacing Threshold Pulse Width 0.4 ms IDCO Lead Channel Pacing Threshold Measurement Method Device Automatic IDCO Lead Channel Pacing Threshold Polarity Bipolar IDCO Lead Channel Impedance Value 630 ohms IDCO Lead Channel Impedance Polarity Bipolar IDCO Lead Channel Measurements Date and Time Start 20180824 IDCO Lead Channel Sensing Intrinsic Amplitude Mean mV IDCO Lead Channel Sensing Polarity Bipolar IDCO Lead Channel Pacing Threshold Amplitude 1.1 V IDCO Lead Channel Pacing Threshold Pulse Width 0.4 ms IDCO Lead Channel Pacing Threshold Measurement Method Device Automatic IDCO Lead Channel Pacing Threshold Polarity Bipolar IDCO Lead Channel Impedance Value 779 ohms IDCO Lead Channel Impedance Polarity Bipolar IDCO Statistic Date Time Start 20180824 IDCO Statistic Date Time End 20180826 IDCO Zeferino Statistic Date Time Start 20180824 IDCO Zeferino Statistic Date Time End 20180826 IDCO Zeferino Statistic RA Percent Paced 23 % IDCO Zeferino Statistic RV Percent Paced 100 % IDCO Anatomical Region Laterality Modality Other 08/26/2018 3:20 AM EST Physician Cardiology IMPLANTABLE CARD IAC DEVICE documented in this encounter Visit Diagnoses Not on filedocumented in this encounter Care Teams Bullard Machine Operator Relationship Specialty Start Date End Date Ricki Traylor MD [facility] [place] [address] PCP - General General Internal Medicine 05/30/1710/09 documented as of this encounter
--- OUTSIDE RECORDS SUMMARY | 2024-06-16 15:35 | XMS_ITS | Encounter Summary ---
Author Organization On License Of [facility] Address [facility] [place] [address] Care Team Providers Care Bowling Alley Attendant Name Role Phone None Primary Care Provider Unavailabl e Reason for Visit * Reason Comments Jaw Pain Chest Pain * Auth/Cert Specialty Diagnoses / Procedures Referred By Charito t Referred To Contact Diagnoses Non-ST elevation myocardial infarction (NSTEMI) NSTEMI (non-ST elevated myocardial infarction) CAD Procedures CARDIAC CATHETERIZATION Referral ID Status Reason Start Date Expiration Date Visits Re quested Visits Authorized [id number] 1 1 Encounter Details Date Type Department Care Team (Late st Contact Info) Description 05/19/2017 1:00 PM EDT - 05/19/2017 2:00 PM EDT Surgery [place] [id number] Oly Stroud MD [facility] [place] [address] CARDIAC CATHETERIZATION Social History Tobacco Use Types [...] Sign Reading Time Taken Comments Blood Pressure 102/62 05/20/2017 5:27 PM EDT Pulse 66 05/20/2017 5:27 PM EDT Temperature 36.8 ??C (98.2 ??F) 05/20/2017 12:12 PM E DT Respiratory Rate 27 05/20/2017 12:12 PM EDT Oxygen Saturation 94% 05/20/2017 12:12 PM EDT Inhaled Oxygen Concentration - - Weight 97.6 kg (215 lb 2.7 oz) 05/20/2017 6:30 A M EDT Height 172.7 cm (5' 8) 05/18/2017 2:51 PM EDT Body Mass Index 32.72 05/18/2017 2:51 PM EDT documented in this encounter Discharge Summaries * Juan Jose Mills MD - 05/20/2017 5:36 PM EDT Cardiology - Discharge Summary Patient Name: Rafael Álvarez Patient Age: 76 y.o. Birthdate: 1940 Admit date: 05/18/2017 Discharge date and time: 05/20/2017 Attending Physician: Juan Jose Mills MD Follow-up Recommendations for Providers: ?? Cardiology follow up - To be scheduled with Dr. Mills ?? [place] [facility] Discharge Diagnoses (Hospital Problems) and Secondary Diagnoses (Chronic Problems): Active Hospital Problems Diagnosis ??? Non-ST elevated myocardial infarction ??? Essential hypertension ??? Hyperlipidemia ??? 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 Coronary disease---hx of CABG ??? Chronic obstructive pulmonary disease ??? Prostate cancer--- treated with radical prostatectomy Resolved Hospital Problems Diagnosis Date Resolved No resolved problems to display. Procedures/Cardiac Studies: cardiac catheterization, echocardiogram (see full report below) History of Presentation: This is a 76-year-old gentleman with past medical history of COPD, hyperlipidemia, hypertension andsignificant cardiac history who presents to the emergency room with jaw and substernal chest pain consistent with his prior VT. He awoke at 01:00 on 05/18 and experienced jaw pain similar to the pain e xperienced previously with VT in 1994. The pain was achy/dull in nature, was located in the lower jaw bilaterally, radiating to chin and down the neck to the sternum. At its worst the pain was 8/10 and was associated with diaphoresis. It was not associated with shortness of breath, nausea, vomiting. In the ED an EKG was performed that was significant for a first-degree AV block and a indication of past anteroseptal infarct. He had a positive troponin at 0.67, and was diagnosed with an an STEMI.The patient received 243 mg of aspirin for a total of 325, sublingual nitroglycerin, a loading doseof 8000 units of heparin, and was started on a heparin drip. The patient was admitted to the cardiology floor and a heparin drip was continued. ?? His cardiac history is significant for CABG 4v in 1994 after myocardial infarction with stent placement in 2014. In December 2016 he also underwent a TAVR (01/03) and pacemaker placement. Cardiology at [facility] in [facility]. Most recently he had a catheterization in 2017 at [facility], those records are attempting to be obtained. The patient endorses baseline orthopnea and PND for which he uses 2 L O2 nasal cannula at night. 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 Hospital Course: On 05/19 the patient underwent a transthoracic echocardiogram and cardiac catheterization (please see full report below). It was determined from the studies that the patient had severe chalkyitsik three-vessel disease including an SVG to RPDA lesion that was treated with repeat drug-eluting stent PCI with good result and return of normal flow through the vessel. The patient tolerated the procedure wellwithout complication and was transferred to the cardiology floor. On the cardiology floor his medical management was optimized with the transition to a high-dose statin. His home medications were already proper for the stent placement considering his past cardiac stent and bypass history. He was con tinued on his home medication of Plavix 75 mg, aspirin 81 mg, and metoprolol. The remainder of his hospital stay was unremarkable and he continued to be chest pain-free. He was able to ambulate with minimal assistance around the floor and his vitals and physical examination remained reassuring Repeat ECG was reassuring for no new acute changes after intervention. Laboratory investigation also remained grossly reassuring and the patient was discharged home late in the evening on hospital day 2 in the care of his daughter. He was provided prescription for outpatient medications including metoprolol, aspirin, atorvastatin, clopidogrel, and lisinopril. He was also providedwith follow-up through cardiology, and contact information to arrange for a new primary care [place] in [place] [facility] [place] the area and does not have primary care yet. Important Studies and Lab Data: Admission Labs: Discharge Labs: Recent Labs 05/20/1743805/19/17 0333 05/18/17 1251 05/18/17 1148 WBC 5.6 5.9 5.0 5.3 HGB 14.2 14.2 14.2 14.6 PLATELET 116* 106* 108* 121* Recent Labs 05/20/1743805/19/17 0333 05/18/17 1045 NA 140 139 141 K 4.5 4.3 4.9 CL 100 100 101 CO2 30 29 28 BUN 17 13 17 CREATININE 1.01 0.64* 0.84 GLUCOSE -- -- 139 Recent Labs 05/20/1743805/19/17 0333 05/18/17 1045 CALCIUM 8.7 8.7 9.3 MAGNESIUM 0.95 0.84 -- Recent Labs 05/19/17 1051 05/19/17 0333 05/18/17 2110 CK 273* 397* 629* TROPONINT 0.86* 1.02* 1.83* No results for input(s): AST, ALT, ALKPHOS, BILITOT, BILIDIR in the last 168 hours. Recent Labs 05/18/17 1045 INR Disregard No results for input(s): HA1C in the last 7068 hours. Studies: TTE 05/19/17 Catheterization 05/19/17: Hemodynamics: Left Heart Pressures Resting: Syst Diast EDP a v m Ao 109 73 91 ? Coronary Angiography: Dominance: Right ? Left Main There was mild diffuse disease of the entire vessel segment of the left main artery. ? Left Anterior Descending There was a single discrete total occlusion of the proximal segment of the left anterior descending artery (LAD). Distal flow was normal and was via a bypass graft. ? Left Circumflex There was a single discrete total occlusion of the proximal segment of the left circumflex artery (LCX). Distal flow was normal and was via a bypass graft. ? Right Coronary Artery There was a single discrete total occlusion of the distal segment of the right coronary artery (RCA). Distal flow was normal and was via a bypass graft. ? There was a single discrete total occlusion of the proximal segment of the right posterior descending branch (RPDA) of the RCA. Distal flow was normal and was via a bypass graft. ? Bypass Grafts: There was a total of three bypass grafts evaluated during this procedure. ? 1. Saphenous vein graft to the RPDA There was a saphenous vein graft with a single anastomosis to the right posterior descending branch (RPDA) of the RCA. ? There was a 95% single discrete stenosis of the mid portion of the segment of this graft between the origin of this graft and the RPDA. This lesion represented in-stent restenosis following a prior coronary bypass graft stent insertion. ? SVG to RPDA was treated with PCI in 2014. There is severe in-stent restenosis in the stented segment (95%). ? 2. Left internal mammary artery graft to the LAD There was a left internal mammary artery graft with a single anastomosis to the left anterior descending artery (LAD). ? There was no evidence of obstruction in this graft. Distal flow was normal. ? 3. Saphenous vein graft to the OM1 There was a saphenous vein graft with a single anastomosis to the first obtuse marginal branch (OM1) of the LCX. ? There was no evidence of obstruction in this graft. Distal flow was normal. ? Indication for Intervention: Coronary intervention was indicated for primary therapy for an acute myocardial infarction. Left Ventricular Ejection fraction was not assessed. The priority for the procedure was Urgent. The [facility] indication for the procedure was PCI for high risk Non-STEMI or unstable angina. ? Intervention Summary: Saphenous vein graft to the RPDA Between the origin of this graft and the RPDA - Mid 95% Stent insertion was performed on the 95% stenosis in the mid portion of the segment of this graft between the origin of this graft and the RPDA. This was a drug eluting in-stent restenosis lesion. According to the ACC/AHA classification system, this lesion was a type C moderate risk lesion. Management of recurrent restenosis was the indication for stent insertion. This was the culprit lesion. Vessel flow pre intervention was JULIO 3. This was a previously treated lesion within >2 years. ? Stent insertion was accomplished through a 6 Fr. MP 1 guide. The lesion was predilated with a 2.50mm EUPHORA 15 MM balloon with a maximum inflation pressure of 12 atmospheres. A premounted 3.00 x 18 mm Xience Alpine (REBECCA) was deployed with a maximum inflation pressure of 14 atmospheres. Following stent deployment, the lesion was dilated using a 3.50mm NC EUPHORA 15 MM balloon with a maximum inflation pressure of 12 atmospheres. ? The final outcome was defined as successful. There was no residual stenosis following this intervention. The final JULIO flow was 3. ? Vascular Access: Vascular Access Angiogram: A selective angiogram at the right femoral artery revealed no significant obstructive disease. ? Vascular Access Management: A 6 Fr Perclose was deployed at the right femoral artery access site. This device was successful. ? Dual Antiplatelet (DAPT) Recommendations: Drug eluting stent (REBECCA) inserted. ? Patient was on chronic DAPT on arrival to the cardiac cath lab manager. ? Recommend continuing clopidogrel 75 mg PO daily for 12 months. Recommend continuing aspirin 81 mg unless intolerant. ? The DAPT score is 2. The DAPT score calculates net clinical benefit of prolonged dual antiplatelet therapy following percutaneous coronary intervention. A DAPT Score of equal or greater than 2 suggests an increased risk of late stent thrombosis and MACCE. If the DAPT score is equal or greater than 2 and the patient tolerates the recommended duration of DAPT without bleeding or side effects, consider extending the DAPT to 30 months post procedure. ? Conclusions: * Three vessel coronary artery disease [...] (see DAPT Recommendations above for more information.) ? Complications/Events: The patient had no complications during these procedures. ? Comments: Pt referred for diagnostic coronary and graft angiography for chest pain and positive biomarkers. Coronary angiography showed severe chalkyitsik 3VD. DUVAL to LAD and SVG to OM1 are patent. SVG to RPDA has a severe in-stenotic lesion which was treated with repeat REBECCA PCI with good result and normal flow. Recommend optimal medical therapy for secondary prevention of CVD. ? The attending physician was present for the entire procedure. ? Dr. Oly Stroud M.D. was present during the moderate sedation intraservice time as documented by the sedation nurse. Case time = 01:00. ? Dr. Oly Stroud M.D. performed the coronary angiography, bypass graft study, stent insertion-bypass graft and access site angiography. Pending Studies and Lab Data: None Discharge Conditions/Prognosis: Good Discharge to: Home Discharge Medications: Your Medications New Medications Dose Details aspirin 81 mg Chew Commonly known as: aspirin Take 81 mg by mouth daily. Start taking on: 05/21/2017 Replaces: aspirin 81 mg Tbec 81 mg Quantity: 30 tablet Refills: 3 atorvastatin 40 mg Tab Commonly known as: LIPITOR Take 1 tablet by mouth every evening. 40 mg Quantity: 90 tablet Refills: 3 lisinopril 5 mg Tab Commonly known as: PRINIVIL;ZESTRIL Take 1 tablet by mouth daily. Start taking on: 05/21/2017 5 mg Quantity: 90 tablet Refills: 3 Continued medications, unchanged Dose Details BREO ELLIPTA 100-25 mcg/dose Dsdv Inhale into the lungs. Generic drug: fluticasone-vilanterol Refills: 0 clopidogrel 75 mg Tab Commonly known as: PLAVIX Take 1 tablet by mouth daily. Start taking on: 05/21/2017 75 mg Quantity: 90 tablet Refills: 3 meTOPROLOL tartrate 50 mg Tab Commonly known as: LOPRESSOR Take 1 tablet by mouth 2 times daily. 50 mg Quantity: 180 tablet Refills: 3 STOPPED Medications aspirin 81 mg Tbec Replaced by: aspirin 81 mg Chew simvastatin 40 mg Tab Commonly known as: ZOCOR Updated Allergies/ADRs: No Known Allergies Future Appointments and Orders Future Appointments Provider Department Dept Phone 06/24/2017 2:20 PM Alfonzo Sam MD Cardiology at [place] [phone] Future Orders Complete By Expires Full code [COD2 Custom] As directed Process Instructions: 1. Completing this order indicates that the recording provider had a discussion with the patient and/or their agent regarding their wishes for resuscitation. 2. If the patient does not have decision making capacity, the provider must document within the order and in the contemporaneous progress note which of the patient's agents the discussion was held with. 3. If this Full Code Order is a revocation or cancellation of a previous DNR order and the providerrecording this order in the system is not the Attending of Record, then the recording provider willhave discussed this order with the Attending of Record and is documenting the decision of the Attending of Record obtained through explicit verbal review. Scheduling Instructions: Questions: Does patient have capacity to make decision: Yes Content of discussion: General Instructions None Patient Instructions PATIENT INSTRUCTIONS FOR DISCHARGE Why you were hospitalized: You were admitted with signs and symptoms indicative of a heart attack or a myocardial infarction. Call your doctor or report to the nearest Emergency Department: if you have chest pain or pressure or symptoms similar or worse to that which initially brought you in to the hospital. If you begin sweating for no reason, have nausea/vomiting, headaches, blurred vision, lightheadedness/ fainting spells, or bleeding from the access site please call your doctor and/or call EMS. Activity: If you are very physically active, then take it easy for the next month, until you are seen in cardiology follow up or given permission by your primary care doctor. It will take time for your heart to recover, so while cardiovascular activity is highly encouraged, over working the heart too soon can be dangerous. Also do not do any heavy lifting greater than 10 lbs for the next 7-10 days, strenuous hiking, running, hunting, skiing, or other strenuous activities as we accessed your heart via the high pressure femoral artery. We do not want you to begin bleeding. If you do so, apply much pressure and report to the nearest emergency department. Driving: Please refrain from driving for 48 hours after your procedure, as the access site is an area of high pressure and abrupt automobile accident can result in excessive bleeding. Also, it would be difficult to place pressure at the catheterization site if it began to bleed as you were driving. Diet: heart healthy diet including low carbohydrates/refined sugars, and much vegetables, fruits, lean protein and whole grains. Bathing: Showers are ok. Do not submerge your wound into a bath or hot tub for about 7-10 days in order to prevent infection. Sexual activity: You should refrain from sexual activity for 1 month following a heart attack. Wound care: since your femoral artery is in an area of high pressure, if it begins to bleed at all,please place a lot of pressure on this and report to the nearest emergency department. Medications: Please avoid taking any NSAID medications (nonsteroidal anti- inflammatory medications)such as ibuprofen (Advil), naproxen (Aleve). Changes in Your Medications: New Medications: Atovastatin 40mg The importance of your medications: 1. Metoprolol, a beta hood, lowers your heart rate and blood pressure and is known to decrease mortality rates in the acute post-heart attack setting. 2. Lisinopril, an JESSIE inhibitor, lowers your blood pressure, is anti- inflammatory, and prevents remodeling and dilation of the mcclain of your heart. 3. Atorvastatin, a statin, is a lipid-lowering drug. It is also anti- inflammatory and studies show intensive lipid lowering therapy decreases the rate of myocardial events after a heart attack. 4. Aspirin, an anti-platelet drug, is protective against future thrombus formation, especially in the stent. 5. Plavix or clopidogrel, is also an anti-platelet drug, is protective against future thrombus formation, especially in the stent. Changes in Your Medications: New Medications: Atorvastatin 40mg Aspirin 81mg Plavix 75mg Metoprolol 50mg Lisinopril 5mg Stop these medications: Smvastatin 40. Return to Work: You were hospitalized for a heart attack. It is very important that you abide by the instructions above with regards to activity, and this applies to work. 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 Follow-up: Cardiology Follow Up - Currently scheduled on 06/24/17 at 2:20pm with Dr. Sam. You will be receiving a call concerning rescheduling this appointment sooner with Dr. Mills who saw you in the hospital. Primary care - Please call to schedule: . Your Inpatient Doctor: Juan Jose Mills MD Aaron Odermann MD, PGY-1 For questions regarding this document or issues relating to this hospitalization on the Medical Service, please contact your inpatient physician through the [facility] Sales Director . Issues afterhours and on weekends will be handled by the Hospitalist staff on-call. Signed: Bradly Espinoza MD PGY-1 Cardiology Team S2 05/20/2017 documented in this encounter Discharge Instructions * Patient Instructions* Bradly Espinoza D - 05/20/2017 3:42 PM EDT PATIENT INSTRUCTIONS FOR DISCHARGE Why you were hospitalized: You were admitted with signs and symptoms indicative of a heart attack or a myocardial infarction. Call your doctor or report to the nearest Emergency Department: if you have chest pain or pressure or symptoms similar or worse to that which initially brought you in to the hospital. If you begin sweating for no reason, have nausea/vomiting, headaches, blurred vision, lightheadedness/ fainting spells, or bleeding from the access site please call your doctor and/or call EMS. Activity: If you are very physically active, then take it easy for the next month, until you are seen in cardiology follow up or given permission by your primary care doctor. It will take time for your heart to recover, so while cardiovascular activity is highly encouraged, over working the heart too soon can be dangerous. Also do not do any heavy lifting greater than 10 lbs for the next 7-10 days, strenuous hiking, running, hunting, skiing, or other strenuous activities as we accessed your heart via the high pressure femoral artery. We do not want you to begin bleeding. If you do so, apply much pressure and report to the nearest emergency department. Driving: Please refrain from driving for 48 hours after your procedure, as the access site is an area of high pressure and abrupt automobile accident can result in excessive bleeding. Also, it would be difficult to place pressure at the catheterization site if it began to bleed as you were driving. Diet: heart healthy diet including low carbohydrates/refined sugars, and much vegetables, fruits, lean protein and whole grains. Bathing: Showers are ok. Do not submerge your wound into a bath or hot tub for about 7-10 days in order to prevent infection. Sexual activity: You should refrain from sexual activity for 1 month following a heart attack. Wound care: since your femoral artery is in an area of high pressure, if it begins to bleed at all,please place a lot of pressure on this and report to the nearest emergency department. Medications: Please avoid taking any NSAID medications (nonsteroidal anti- inflammatory medications)such as ibuprofen (Advil), naproxen (Aleve). Changes in Your Medications: New Medications: Atovastatin 40mg The importance of your medications: 1. Metoprolol, a beta hood, lowers your heart rate and blood pressure and is known to decrease mortality rates in the acute post-heart attack setting. 2. Lisinopril, an JESSIE inhibitor, lowers your blood pressure, is anti- inflammatory, and prevents remodeling and dilation of the mcclain of your heart. 3. Atorvastatin, a statin, is a lipid-lowering drug. It is also anti- inflammatory and studies show intensive lipid lowering therapy decreases the rate of myocardial events after a heart attack. 4. Aspirin, an anti-platelet drug, is protective against future thrombus formation, especially in the stent. 5. Plavix or clopidogrel, is also an anti-platelet drug, is protective against future thrombus formation, especially in the stent. Changes in Your Medications: New Medications: Atorvastatin 40mg Aspirin 81mg Plavix 75mg Metoprolol 50mg Lisinopril 5mg Stop these medications: Smvastatin 40. Return to Work: You were hospitalized for a heart attack. It is very important that you abide by the instructions above with regards to activity, and this applies to work. 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 Follow-up: Cardiology Follow Up - Currently scheduled on 06/24/17 at 2:20pm with Dr. Sam. You will be receiving a call concerning rescheduling this appointment sooner with Dr. Mills who saw you in the hospital. Primary care - Please call to schedule: . Your Inpatient Doctor: Juan Jose Mills MD Aaron Odermann MD, PGY-1 For questions regarding this document or issues relating to this hospitalization on the Medical Service, please contact your inpatient physician through the [facility] Sales Director . Issues afterhours and on weekends will be handled by the Hospitalist staff on-call. * Attachments The following attachments cannot be sent through Care Everywhere. * HEART ATTACK: MEDICINE TO REDUCE RISK (SOMALI) * HEART ATTACK: MYOCARDIAL INFARCTION OR ACUTE CORONARY SYNDROME (SOMALI) documented in this encounter Medications at Time of Discharge Medication Sig Dispensed Refills Start Date End Date atorvastatin (LIPITOR) 40 mg Tablet Take 1 [...] times daily. 180 tablet 3 05/20/2017 05/19/2018 fluticasone-vilanterol (BREO ELLIPTA) 100-25 mcg/dose Disk with Device Inhale into the lungs. 06/04/2017 documented as of this encounter Progress Notes * Nurys Guerrero RN - 05/20/2017 3:10 PM EDT Cardiac rehab team reviewed this patient w/diagnosis of: NSTEMI, PCI Patient has history of CABG and recent TAVR. He has COPD, O2 dependent, unsteady gait, limited ambulation per RN Patient does not appear to be a candidate for outpatient cardiac rehab services due to his inability to maneuver in a gym setting independently. He might benefit from PT. Pulmonary rehab at could be considered by his primary team in the outpatient setting. * Juna Jose Mills MD - 05/20/2017 6:23 AM EDT Inpatient Cardiology Progress Note Hospital Day 2 days Active Hospital Problems Diagnosis ??? Non-ST elevated myocardial infarction ??? Essential hypertension ??? Hyperlipidemia ??? 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 Coronary disease---hx of CABG ??? Chronic obstructive pulmonary disease ??? Prostate cancer--- treated with radical prostatectomy Resolved Hospital Problems Diagnosis Date Resolved No resolved problems to display. ID: This is a 76-year-old gentleman with past medical history of COPD, hyperlipidemia, hypertension, and significant cardiac history who presented to the emergency room with N STEMI. He is status post cardiac catheterization with stent placement for revascularization. 24 Hour Events/Subjective: -This morning the patient hypertensive has hypertensive blood pressures of high 80s over 50s checked in both arms. On examination he is completely asymptomatic and has no chest pain, shortness of breath, cough, fever/chills, nausea/vomiting, abdominal pain, paresthesias, dizziness/lightheadedness, vision changes, ringing the ears, lethargy. Has ambulated with assistance without problem. Assessment and physical exam is reassuring, cath site inspected with no swelling, bruit, peripheral pulses intact. The patient is asymptomatic. This is likely due to mild dehydration and oral rehydration will be attempted and the patient monitored closely. -Patient received cath yesterday and did experience a bleeding episode afterwards. This was controlled with direct pressure and post-cath check was reassuring. -Troponin continuing to trend upwards. -Patient denies CP, palpitations, dizziness/LH, LE swelling or pain, N/V/D/C/abd pain Inpatient Medications: Scheduled Meds: ??? aspirin 81 mg Oral Daily ??? sodium chloride 0.9 % 5 mL Intravenous BID ??? clopidogrel 75 mg Oral Daily ??? meTOPROLOL tartrate 25 mg Oral Q6H ALICIA ??? atorvastatin 40 mg Oral QPM ??? lisinopril 5 mg Oral Daily Continuous Infusions: PRN Meds:.nitroGLYcerin, sodium chloride 0.9 %, lidocaine, acetaminophen, flu vacc (65 yrs+) (PF), ipratropium-albuterol Vitals: Last value 24hr range T 36.9 ??C (98.4 ??F) Temp: [36.6 ??C (97.9 ??F)-36.9 ??C (98.4 ??F)] HR 66 Heart Rate: [60-74] BP 118/63 BP: (94-149)/(43-89) RR 26 Resp: [16-28] SpO2 96 % SpO2: [92 %-100 %] Last value Initial Value Wt 98.6 kg (217 lb 6 oz) 99.8 kg (220 lb) Height 172.7 cm (5' 8) 172.7 cm (5' 8) Ins/Outs: Intake/Output Summary (Last 24 hours) at 05/20/17 0623 Last data filed at 05/20/17 0400 Gross per 24 hour Intake 794 ml Output 1925 ml Net -1131 ml Physical Exam: Physical Exam Constitutional: He is oriented to person, place, and time. He appears well- developed and well-nourished. HENT: Head: Normocephalic and atraumatic. Eyes: Right eye exhibits no discharge. Left eye exhibits no discharge. No scleral icterus. Neck: Neck supple. Cardiovascular: Normal rate, regular rhythm and normal heart sounds. Exam reveals no gallop and no friction rub. No murmur heard. Heart sounds mildly distant. Pulmonary/Chest: Effort normal. No respiratory distress. Mildly decreased air movement in all lung robles. Diffuse wheezes normal robles. Mild bibasilar crackles noted. Abdominal: Soft. Bowel sounds are normal. There is no tenderness. Musculoskeletal: Normal range of motion. He exhibits no edema, tenderness or deformity. Radial and DP pulses strong and equal bilaterally. Cath site and right groin inspected, no swelling, minimal pain upon palpation, no bruit. Neurological: He is alert and oriented to person, place, and time. Coordination normal. Cranial nerves II through XII tested and intact, face symmetrical, tongue midline. Skin: Skin is warm and dry. Psychiatric: He has a normal mood and affect. Nursing note and vitals reviewed. Labs: Recent Labs 05/20/17 0439 05/19/17 0333 05/18/17 1251 WBC 5.6 5.9 5.0 HGB 14.2 14.2 14.2 HCT 42.9 42.5 41.8 PLATELET 116* 106* 108* Recent Labs 05/18/17 1045 INR Disregard Recent Labs 05/20/17 0439 05/19/17 0333 05/18/17 1045 NA 140 139 141 K 4.5 4.3 4.9 CL 100 100 101 CO2 30 29 28 BUN 17 13 17 CREATININE 1.01 0.64* 0.84 No results for input(s): AST, ALT, ALKPHOS, BILITOT, BILIDIR in the last 168 hours. Recent Labs 05/20/17 0439 05/19/17 0333 05/18/17 1045 CALCIUM 8.7 8.7 9.3 MAGNESIUM 0.95 0.84 -- Recent Labs 05/19/17 1051 05/19/17 0333 05/18/17 2110 CK 273* 397* 629* TROPONINT 0.86* 1.02* 1.83* No results for input(s): TSH in the last 7068 hours. No results for input(s): HA1C in the last 7068 hours. Imaging: Cardiac catheterization 05/19/2017: Conclusions: * Three vessel coronary artery disease [...] 75 mg PO daily for 12 months Transthoracic echocardiogram 05/19/2017: SUMMARY: ?? 1. The left ventricular chamber size is [...] size. 9. Please see full echo report. CXR 05/18: Decreased lung volume with subsegmental atelectasis. Pacemaker noted, post-CABG hardware noted. EK05/18/2017 12:51 PM: Normal sinus rhythm at 67, first-degree heart block NJ interval is 210, no significant ST elevations or depressions, evidence of prior anterior septal infarct. No pacer spikes noted. Assessment: This is a 76-year-old male with a significant past medical history and cardiac history who presents with NSTEMI. He is currently status post cardiac catheterization with stent placement between the origin and RPDA of the SVG. ?? Plan: Mr. Álvarez will be admitted to the cardiology floor and continued on heparin drip. His physical exam was concerning for bilateral wheezes and crackles which may indicate new onset heart failure,chest x-ray and BNP indicates long-standing COPD and mild elevation of BNP. Past results for cathete rization and CABG have been requested and will be reviewed prior to further workup. Metoprolol 25 mg every 6 hours as well as lisinopril 5 mg been ordered, lisinopril can be uptitrated if needed. He should be maintained on telemetry secondary to his significant cardiac history. He has tolerated hiscardiac catheterization well with stent placement and is recovering appropriately. ?? NSTEMI ?? Metoprolol 25 mg p.o. every 6 hours ?? Continue clopidogrel 75 mg p.o. ?? Continue simvastatin 40 ?? Continue aspirin 81 mg ?? Lisinopril 5mg ?? Continue heparin drip ?? Troponin trending downwards, discontinue monitoring. ?? COPD ?? DuoNeb treatment PRN ?? Prophy ?? GI: Not indicated ?? Bowel: RBOs ?? DVT: Heparin drip ?? Housekeeping ?? Diet: Cardiac diet ?? Fluids: Pending p.o. intake ?? Access: Maintain IV access ?? Lines: Peripheral IV ?? Dispo ?? Home pending recovery ?? Code Status: Full ?? Discussed patient with Dr. Lina Espinoza MD, PGY-1 Team Pager [phone] Cardiology Attending Note I interviewed and examined the patient during comprehensive bedside rounds. I personally reviewed the medications and laboratory results. Active Hospital Problems Diagnosis ??? Non-ST elevated myocardial infarction ??? Essential hypertension ??? Hyperlipidemia ??? 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 Coronary disease---hx of CABG ??? Chronic obstructive pulmonary disease ??? Prostate cancer--- treated with radical prostatectomy Resolved Hospital Problems Diagnosis Date Resolved No resolved problems to display. Comment I agree with the findings noted above and participated in the assessment and plan. Feeling well today. Had some bleeding from access site overnight but no evidence of hematoma or pseudoaneurysm. Willdischarge today. Juan Jose Mills MD This patient meets or has met medical criteria to require an inpatient level of care, i.e. a minimum of two midnights in the hospital with multiple complex problems. * Chris Bashir - 05/19/2017 10:15 PM EDT Post-Catheterization Check S: Patient resting comfortably, mild discomfort at cath site. Notes no bleeding. Denies chest pain,palpitations, or SOB. O: Most Recent Vitals: 05/19/17 2043 BP: 109/43 Pulse: 67 Resp: 23 Temp: 36.7 ??C (98.1 ??F) SpO2: 98% Gen: resting comfortably Ext: R groin catheterization site C/D/I, no active bleeding. No hematoma palpated, min TTP. No bruit appreciated. Distal pulses 2+, brisk capillary refill. A/P: Patient stable following cardiac cath. No apparent complications. Will continue to monitor. 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 He and his family are Christians, very open to fulfillment specialist visit and support. Assessment: He was in company of his waiting for his procedure when fulfillment specialist stopped by. A bit agitated yet with reid to have it done. Intervention and Outcome: Provided pastoral/supportivee/encouraging presence and prayers for God's wisdom and healing. Follow-up: Yes Time in Direct Care: 30 mins Jaylan Webster 05/19/2017 * Juan Jose Mills MD - 05/19/2017 7:13 AM EDT Inpatient Cardiology Progress Note Hospital Day 1 day Active Hospital Problems Diagnosis ??? Non-ST elevated myocardial infarction ??? 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 Coronary disease---hx of CABG ??? Chronic obstructive pulmonary disease ??? Prostate cancer--- treated with radical prostatectomy Resolved Hospital Problems Diagnosis Date Resolved No resolved problems to display. ID: This is a 76-year-old gentleman with past medical history of COPD, hyperlipidemia, hypertension, and significant cardiac history who presented to the emergency room with N STEMI. 24 Hour Events/Subjective: -No acute events overnight -Troponin continuing to trend upwards. -Patient denies CP, palpitations, dizziness/LH, LE swelling or pain, N/V/D/C/abd pain Inpatient Medications: Scheduled Meds: ??? aspirin 243 mg Oral Daily ??? sodium chloride 0.9 % 5 mL Intravenous BID ??? clopidogrel 75 mg Oral Daily ??? meTOPROLOL tartrate 25 mg Oral Q6H ALICIA ??? atorvastatin 40 mg Oral QPM ??? lisinopril 5 mg Oral Daily Continuous Infusions: ??? heparin (porcine) 1,200 Units/hr (05/19/17 0600) ??? nitroGLYcerin Stopped (05/18/17 1334) PRN Meds:.nitroGLYcerin, heparin (porcine) AND heparin (porcine), sodium chloride 0.9 %, lidocaine, nitroGLYcerin, acetaminophen, flu vacc (65 yrs+) (PF), ipratropium-albuterol Vitals: Last value 24hr range T 36.7 ??C (98.1 ??F) Temp: [36.4 ??C (97.5 ??F)-36.8 ??C (98.2 ??F)] HR 60 Heart Rate: [60-70] BP 110/59 BP: (110-167)/(59-95) RR 24 Resp: [14-32] SpO2 97 % SpO2: [90 %-97 %] Last value Initial Value Wt 98.6 kg (217 lb 6 oz) 99.8 kg (220 lb) Height 172.7 cm (5' 8) 172.7 cm (5' 8) Ins/Outs: Intake/Output Summary (Last 24 hours) at 05/19/17 0713 Last data filed at 05/19/17 0400 Gross per 24 hour Intake 921 ml Output 1375 ml Net -454 ml Physical Exam: Physical Exam Constitutional: He is oriented to person, place, and time. He appears well- developed and well-nourished. HENT: Head: Normocephalic and atraumatic. Eyes: Right eye exhibits no discharge. Left eye exhibits no discharge. No scleral icterus. Neck: Neck supple. Cardiovascular: Normal rate, regular rhythm and normal heart sounds. Exam reveals no gallop and no friction rub. No murmur heard. Heart sounds mildly distant. Pulmonary/Chest: Effort normal. No respiratory distress. Mildly decreased air movement in all lung robles. Diffuse wheezes normal robles. Mild bibasilar crackles noted. Abdominal: Soft. Bowel sounds are normal. There is no tenderness. Musculoskeletal: He exhibits no edema or deformity. Neurological: He is alert and oriented to person, place, and time. Cranial nerves II through XII grossly intact, face symmetrical, tongue midline. Skin: Skin is warm and dry. Psychiatric: He has a normal mood and affect. Nursing note and vitals reviewed. Labs: Recent Labs 05/19/17 0333 05/18/17 1251 05/18/17 1148 WBC 5.9 5.0 5.3 HGB 14.2 14.2 14.6 HCT 42.5 41.8 43.5 PLATELET 106* 108* 121* Recent Labs 05/18/17 1045 INR Disregard Recent Labs 05/19/17 0333 05/18/17 1045 NA 139 141 K 4.3 4.9 CL 100 101 CO2 29 28 BUN 13 17 CREATININE 0.64* 0.84 No results for input(s): AST, ALT, ALKPHOS, BILITOT, BILIDIR in the last 168 hours. Recent Labs 05/19/17 0333 05/18/17 1045 CALCIUM 8.7 9.3 MAGNESIUM 0.84 -- Recent Labs 05/19/17 0333 05/18/17 2110 05/18/17 1045 CK 397* 629* -- TROPONINT 1.02* 1.83* 0.67* No results for input(s): TSH in the last 7068 hours. No results for input(s): HA1C in the last 7068 hours. Imaging: CXR 05/18: Decreased lung volume with subsegmental atelectasis. Pacemaker noted, post-CABG hardware noted. EK05/18/2017 12:51 PM: Normal sinus rhythm at 67, first-degree heart block NJ interval is 210, no significant ST elevations or depressions, evidence of prior anterior septal infarct. No pacer spikes noted. Assessment: This is a 76-year-old male with a significant past medical history and cardiac history who presents with N STEMI. ?? Plan: Mr. Álvarez will be admitted to the cardiology floor and continued on heparin drip. His physical exam was concerning for bilateral wheezes and crackles which may indicate new onset heart failure,chest x-ray and BNP have been ordered and should be followed up. Past results for catheterization and CABG have been requested and will be reviewed prior to further workup. Transthoracic echo was ordered and needs to be followed up, and further evaluation for cardiac catheterization should be undertaken 05/19. He has a history of hypertension and continues to be hypertensive. Metoprolol 25 mg every 6 hours as well as lisinopril 5 mg been ordered, lisinopril can be uptitrated if needed. He shouldbe maintained on telemetry secondary to his significant cardiac history. ?? NSTEMI ?? Metoprolol 25 mg p.o. every 6 hours ?? Continue clopidogrel 75 mg p.o. ?? Continue simvastatin 40 ?? Continue aspirin 81 mg ?? Lisinopril 5mg ?? Heparin drip ?? TTE ?? Follow-up BNP ?? Follow-up chest x-ray ?? NPO at midnight for cath 05/19 ?? ECHO 05/19 ?? COPD ?? DuoNeb treatment PRN and Q8H ?? Prophy ?? GI: Not indicated ?? Bowel: RBOs ?? DVT: Heparin drip ?? Housekeeping ?? Diet: Cardiac diet ?? Fluids: ?? Access: Maintain IV access ?? Lines: Peripheral IV ?? Dispo ?? pending cath ?? Code Status: Full ?? Discussed patient with Dr. Lina Espinoza MD, PGY-1 Team Pager [phone] Cardiology Attending Note I interviewed and examined the patient during comprehensive bedside rounds. I personally reviewed the medications and laboratory results. Active Hospital Problems Diagnosis ??? Non-ST elevated myocardial infarction ??? Essential hypertension ??? Hyperlipidemia ??? 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 Coronary disease---hx of CABG ??? Chronic obstructive pulmonary disease ??? Prostate cancer--- treated with radical prostatectomy Resolved Hospital Problems Diagnosis Date Resolved No resolved problems to display. Comment I agree with the findings noted above and participated in the assessment and plan. He has had no jaw pain overnight. His breathing is sustained. He is O2 dependent at night. As I noted yesterday, he has seen a glove presser and tried a variety of inhalers which have seemed to do no good. COPD has been confirmed by spirometry by the patient's report. His chest x-ray x-ray yesterday showed only atelectasis. The plan to proceed with coronary and graft angiography with the expectation that he will have obstructive disease in 1 of his bike pass grafts. Unfortunately, his EKG does not localize the territoryaffected. Juan Jose Mills MD This patient meets or has met medical criteria to require an inpatient level of care, i.e. a minimum of two midnights in the hospital with multiple complex problems. ?? documented in this encounter H&P Notes * Juan Jose Mills MD - 05/18/2017 1:41 PM EDT Cardiology Admission Note Patient Name: Rafael Álvarez Service: Medicine Responsible Attending: Juan Jose Mills MD Admission Date: 05/18/2017 10:39 AM Problem List: Active Hospital Problems Diagnosis ??? Non-ST elevated myocardial infarction ??? 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 Coronary disease---hx of CABG ??? Chronic obstructive pulmonary disease ??? Prostate cancer--- treated with radical prostatectomy Resolved Hospital Problems Diagnosis Date Resolved No resolved problems to display. Patient Active Problem List Diagnosis Code ??? Non-ST elevated myocardial infarction I21.4 ??? Aortic valve disease--- TAVR December 2016 I35.9 ??? Coronary disease---hx of CABG I25.10 ??? Chronic obstructive pulmonary disease J44.9 ??? Prostate cancer--- treated with radical prostatectomy C61 CC: Jaw pain and chest pain consistent with prior VT. HPI: This is a 76-year-old gentleman with past medical history of COPD, hyperlipidemia, hypertension andsignificant cardiac history who presents to the emergency room with jaw and substernal chest pain consistent with his prior VT. He awoke at 01:00 on 05/18 and experienced jaw pain similar to the pain e xperienced previously with VT in 1994. The pain was achy/dull in nature, was located in the lower jaw bilaterally, radiating to chin and down the neck to the sternum. At its worst the pain was 8/10 and was associated with diaphoresis. It was not associated with shortness of breath, nausea, vomiting. In the ED an EKG was performed that was significant for a first-degree AV block and a indication of past anteroseptal infarct. He had a positive troponin at 0.67, and was diagnosed with an an STEMI.The patient received 243 mg of aspirin for a total of 325, sublingual nitroglycerin, a loading doseof 8000 units of heparin, and was started on a heparin drip. The patient was admitted to the cardiology floor and a heparin drip was continued. His cardiac history is significant for CABG 4v in 1994 after myocardial infarction with stent placement in 2014. In December 2016 he also underwent a TAVR (01/03) and pacemaker placement. Cardiology at [facility] in [facility]. Most recently he had a catheter[facility], those records are attempting to be obtained. The patient endorses baseline orthopnea and PND for which he uses 2 L O2 nasal cannula at night. 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 ROS (positives in bold): Gen: fevers, chills, rigors, fatigue HEENT: rhinorrhea, head pain, or neck pain CV: see HPI Resp: see HPI GI: n/v/d, dysphagia, hematemesis, constipation, hematochezia : dysuria, increasing urinary frequency, flank pain MSK: myalgias, arthralgias, arthritis Extr: peripheral edema Endo: hot/cold intolerance, anorexia, recent weight loss, jaundice Derm: rashes, wounds, skin lesions, or pruritis Psych: depression, difficulty sleeping Neuro: HOPKINS, changes to vision, numbness, weakness, parasthesias, seizures PMHx: Past Medical History: Diagnosis Date ??? Pacemaker 12/2016 ??? S/P CABG x 4 1994 ??? S/P TAVR (transcatheter aortic valve replacement) 12/2016 PSurgHx: History reviewed. No pertinent surgical history. FamHx: History reviewed. No pertinent family history. SocHx: Social History Social History ??? Marital status: [...] ??? Not on file Social History Narrative ??? No narrative on file Meds: Prescriptions Prior to Admission Medication Sig Dispense Refill Last Dose ??? simvastatin (ZOCOR) 40 mg Tablet Take 40 mg by mouth nightly. 05/17/2017 ??? aspirin 81 mg Tablet, Delayed Release (E.C.) Take 81 mg by mouth daily. 05/17/2017 ??? clopidogrel (PLAVIX) 75 mg Tablet Take 75 mg by mouth daily. 05/17/2017 ??? meTOPROLOL tartrate (LOPRESSOR) 50 mg Tablet Take 50 mg by mouth 2 times daily. 05/17/2017 ??? fluticasone-vilanterol (BREO ELLIPTA) 100-25 mcg/dose Disk with Device Inhale into the lungs. Unknown Allergies: No Known Allergies PE: Vitals: Temp: 36.4 ??C (97.5 ??F) BP: 165/74 Heart Rate: 64 Resp: 17 SpO2: 95 % Physical Exam Constitutional: He is oriented to person, place, and time. He appears well- developed and well-nourished. HENT: Head: Normocephalic and atraumatic. Mouth/Throat: Oropharynx is clear and moist. Eyes: Right eye exhibits no discharge. Left eye exhibits no discharge. No scleral icterus. Neck: No JVD present. No tracheal deviation present. Limited range of motion post surgery. Cardiovascular: Normal rate, regular rhythm and normal heart sounds. Exam reveals no gallop and no friction rub. No murmur heard. Pulmonary/Chest: Effort normal and breath sounds normal. No respiratory distress. Bilateral wheezes diffusely in all lung robles, bibasilar crackles noted. Abdominal: Soft. Bowel sounds are normal. There is no tenderness. Musculoskeletal: He exhibits no edema or deformity. Neurological: He is alert and oriented to person, place, and time. Cranial nerves II through XII grossly intact, face symmetrical, tongue midline. Skin: Skin is warm and dry. Psychiatric: He has a normal mood and affect. Nursing note and vitals reviewed. Labs: Recent Results (from the past 24 hour(s)) Troponin T Result Value Ref Range Troponin-T 0.67 (H) 0.00 - 0.00 ng/mL Basic Metabolic Panel (non-fasting) Result Value Ref Range Glucose Lvl 139 65 - 199 mg/dL BUN 17 10 - 20 mg/dL Creatinine 0.84 0.80 - 1.50 mg/dL Sodium 141 135 - 145 mmol/L Potassium 4.9 3.5 - 5.0 mmol/L Chloride 101 98 - 107 mmol/L CO2 28 22 - 31 mmol/L Anion Gap 12 5 - 15 mmol/L Calcium 9.3 8.5 - 10.5 mg/dL Estimated GFR >60 >=60 Prothrombin Time Result Value Ref Range PT Disregard 12.0 - 15.0 INR Disregard 0.9 - 1.1 Gold Tube HOLD Result Value Ref Range Gold Hold Sample in lab. APTT Result Value Ref Range PTT Disregard 25 - 35 Hemogram Result Value Ref Range WBC 5.3 4.0 - 9.5 x10(3)/mcL RBC 4.50 (L) 4.58 - 5.54 x10(6)/mcL Hemoglobin 14.6 13.7 - 16.5 gm/dL Hematocrit 43.5 40.5 - 48.5 % MCV 96.7 (H) 82.9 - 93.1 fL MCH 32.4 (H) 27.5 - 32.1 pg MCHC 33.6 32.0 - 35.7 gm/dL Platelets 121 (L) 145 - 357 x10(3)/mcL RDWSD 47.2 (H) 36.0 - 45.0 fL RDWCV 13.2 11.4 - 13.8 % MPV 9.1 7.6 - 12.9 fL nRBC % Auto 0.0 % nRBC Abs Auto 0.000 0.000 - 0.000 x10(3)/mcL Differential, Automated Result Value Ref Range Neutrophils % 65.2 % Neutr Abs (ANC) 3.47 1.70 - 6.10 x10(3)/mcL Lymphocytes % 21.8 % Lymphocytes Abs 1.2 0.9 - 3.2 x10(3)/mcL Monocytes % 11.3 % Monocyte Abs 0.6 0.3 - 0.9 x10(3)/mcL Eosinophils % 1.1 % Eosinophils Abs 0.1 0.0 - 0.4 x10(3)/mcL Basophils % 0.4 % Basophils Abs 0.0 0.0 - 0.1 x10(3)/mcL Immature Gran % 0.20 % Torie Gran Abs 0.01 0.00 - 0.04 x10(3)/mcL APTT Result Value Ref Range PTT 33 25 - 35 sec Hemogram Result Value Ref Range WBC 5.0 4.0 - 9.5 x10(3)/mcL RBC 4.29 (L) 4.58 - 5.54 x10(6)/mcL Hemoglobin 14.2 13.7 - 16.5 gm/dL Hematocrit 41.8 40.5 - 48.5 % MCV 97.4 (H) 82.9 - 93.1 fL MCH 33.1 (H) 27.5 - 32.1 pg MCHC 34.0 32.0 - 35.7 gm/dL Platelets 108 (L) 145 - 357 x10(3)/mcL RDWSD 47.5 (H) 36.0 - 45.0 fL RDWCV 13.2 11.4 - 13.8 % MPV 9.0 7.6 - 12.9 fL nRBC % Auto 0.0 % nRBC Abs Auto 0.000 0.000 - 0.000 x10(3)/mcL Differential, Automated Result Value Ref Range Neutrophils % 66.4 % Neutr Abs (ANC) 3.33 1.70 - 6.10 x10(3)/mcL Lymphocytes % 20.6 % Lymphocytes Abs 1.0 0.9 - 3.2 x10(3)/mcL Monocytes % 11.2 % Monocyte Abs 0.6 0.3 - 0.9 x10(3)/mcL Eosinophils % 1.0 % Eosinophils Abs 0.0 0.0 - 0.4 x10(3)/mcL Basophils % 0.6 % Basophils Abs 0.0 0.0 - 0.1 x10(3)/mcL Immature Gran % 0.20 % Torie Gran Abs 0.01 0.00 - 0.04 x10(3)/mcL Diagnostic Studies: EK05/18/2017 12:51 PM: Normal sinus rhythm at 67, first-degree heart block NJ interval is 210, no significant ST elevations or depressions, evidence of prior anterior septal infarct. No pacer spikes noted. Assessment: This is a 76-year-old male with a significant past medical history and cardiac history who presents with N STEMI. Plan: Mr. Álvarez will be admitted to the cardiology floor and continued on heparin drip. His physical exam was concerning for bilateral wheezes and crackles which may indicate new onset heart failure,chest x-ray and BNP have been ordered and should be followed up. Past results for catheterization and CABG have been requested and will be reviewed prior to further workup. Transthoracic echo was ordered and needs to be followed up, and further evaluation for cardiac catheterization should be undertaken 05/19. He has a history of hypertension and continues to be hypertensive. Metoprolol 25 mg every 6 hours as well as lisinopril 5 mg been ordered, lisinopril can be uptitrated if needed. He shouldbe maintained on telemetry secondary to his significant cardiac history. ?? N STEMI ?? Metoprolol 25 mg p.o. every 6 hours ?? Continue clopidogrel 75 mg p.o. ?? Continue simvastatin 40 ?? Continue aspirin 81 mg ?? Lisinopril 5mg ?? Heparin drip ?? TTE ?? Follow-up BNP ?? Follow-up chest x-ray ?? NPO at midnight for possible cath 05/19 ?? COPD ?? DuoNeb treatment PRN and Q8H Admit to Cardiology # Prophy GI: Not indicated Bowel: RBOs DVT: Heparin drip # Housekeeping Diet: Cardiac diet Fluids: Access: Maintain IV access Lines: Peripheral IV # Dispo pending cath Code Status: Full Discussed patient with Dr. Lina Espinoza MD, PGY-1 Team Pager [phone] Cardiology Attending Note I interviewed and examined the patient during comprehensive bedside rounds. I personally reviewed the medications and laboratory results. Active Hospital Problems Diagnosis ??? Non-ST elevated myocardial infarction ??? 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 Coronary disease---hx of CABG ??? Chronic obstructive pulmonary disease ??? Prostate cancer--- treated with radical prostatectomy Resolved Hospital Problems Diagnosis Date Resolved No resolved problems to display. Comment I agree with the findings noted above and participated in the assessment and plan. His jaw symptomsare typical for angina and identical to his symptoms from 1994 at the time of his CABG. He recalls being told at [facility] in [place], [place] that 1 of his bypass grafts appeared to have some diseasebut not enough to warrant stenting. It may be that this lesion has progressed with that he has a denovo lesion in another vein graft. They are 27 years old. On examination, he is pleasant gentleman in no distress. Chest exam reveals prolonged expiratory phase and decreased air movement but no wheezes or crackles. Jugular venous pressure does not appear elevated. Heart sounds are distant but regular. His ECG does not localize the problem. Blood tests confirm myonecrosis. This is likely due to atherosclerotic disease affecting his vein grafts. He has significant dyspnea. I do not have right heart cath data from prior to his TAVR in December but he must have had a right heart cath done at that time. We will continue to try to get records of his diagnostic cath done in [place]. I think it is worthwhile crossing the valve and identifying it LVEDP because of his dyspnea. 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 We will proceed with coronary and graft angiography today and possible PCI. Suspect graft failure. Juan Jose Mills MD This patient meets or has met medical criteria to require an inpatient level of care, i.e. a minimum of two midnights in the hospital with multiple complex problems. toya documented in this encounter ED Notes * Yusra Grant RN - 05/18/2017 2:21 PM EDT Report to Jani WILLARD. * Yusra Grant RN - 05/18/2017 1:37 PM EDT Attempted to call report. Nurse not available at this time. * Yusra Grant RN - 05/18/2017 11:50 AM EDT Pt resting comfortably at this time. Denies any needs currently. Pending plan of care. * Chris Quijano MD - 05/18/2017 11:04 AM EDT Brief Attending Note: I saw Rafael Álvarez in conjunction with Dr. Silverman. Please see their note for further details. Briefly, 76 y.o. male presents with jaw pain and digestion. The patient has a history of a myocardial infarction with a CABGx4 performed in [place] at [facility] in 1994. Reports the jaw pain and indigestion were the exact same symptoms that led to him having a CABG. In December 2016 he also underwent a TAVR (01/03) and pacemaker placement. He recently moved to the area 2 weeks ago and presents with jaw pain and indigestion since last night. The review of systems is negative other than items noted in the HPI. I reviewed the past medical history, medications, and allergies in [facility]. On exam the patient resting comfortably in no acute distress. Heart rate is regular, lungs clear, no loud murmur, obese but soft abdomen, extremities are warm and dry. He is alert, fluent speech and no focal neurologic deficits. We obtained an EKG that showed a normal sinus rhythm at 64 with normal axis and Q-wave in lead III. I reviewed the records from : ?? Pacer placed for high degree AVB s/p TAVR. ?? BSC/ [employer] MRI [id number] ?? DDD 60-130 ?? TTE 01/01/17: Mildly dilated left atrium with a grossly normal LV function with EF greater than 55% there is severe aortic valve stenosis with no AI, mitral leaflets are thickened no prolapse. I reviewed the labs which are significant for a troponin of 0.67 There is not much improvement with the nitroglycerin but the patient was not in pain. He was started on heparin infusion and cardiology was consulted. Assessment: 76 y.o. male with history of coronary artery disease status post CABG in 1994 with a recent history of a TAVR and pacemaker insertion who presents with a NSTEMI. Plan: Heparin infusion, admit to cardiology ICCU MD Macie Russell Matthew A, MD 05/18/17 1243 * Luca Silverman M - 05/18/2017 10:50 AM EDT ED NOTE Rafael Álvarez is an 76 y.o. male who presents to the ED with: Chief Complaint Patient presents with ??? Jaw Pain ??? Chest Pain I saw this patient 05/18/2017 at ~ 10:50 AM HPI Rafael Álvarez is a 76 y.o. male with PMH significant for CABG x 4 in the mid in [place], stent placed to graft in 2014, recent TAVR and pacemaker placement for complete heart block in December of this year, and COPD on home option at night who presents to the Emergency Department with complains ofjaw pain. The patient states he woke up to go the bathroom around 1 AM this morning and developed bilateral jaw pressure that is similar to the pressure he had in the 90s when he required his CABG and also similar to the event doesn't 15 when he required a stent in one of his grafts. The pressure was in attendance severity and he also had some mild chest pain. It prevented him from sleeping but did improve throughout the night. He took a baby aspirin this morning as well as his metoprolol and Plavix and then came to the emergency department. He moved up here roughly 2 weeks ago and has not established care with a PCP or manager copy in the area. He has been seen recently at [facility] and had a pacemaker placed for high degree AV block after his TAVR are in December of this year. He also had a TTE in December that showed mildly dilated left atrium with a grossly normal LV function with EF greater than 55%. He did have severe aortic stenosis with no AI and the mitral labs were thick and without prolapse. The patient does have COPD and does use 2 L of oxygen at night and when he is tired. He states thatwhen he exerts himself, his oxygen saturations sometimes drop into the high 70s. Patient states he has shortness of breath at baseline but no recent changes. No recent weight gain, PND, orthopnea. Patient hasn't smoked roughly 25 years. Denies cough, fevers, chills, sweats. Pacemaker:BSC/ [employer] MRI [id number]; DDD 60-130 Review of Symptoms: General: No recent fever, chills, or malaise HEENT: No eye pain or sore throat Neck: Positive jaw pain Pulm: No cough or new SOB Card: + chest pain, No palpitations Abd: No abd pain, nausea/vomiting : No dysuria or urgency, no urinary incontinence Skin: No rashes or petechiae Neuro: No headache or numbness MSK: No back pain Psych: No confusion or agitation Physical Exam: Nursing notes and vitals were reviewed Most Recent Vitals: 05/18/17 1040 BP: 161/89 Pulse: 69 Resp: 14 SpO2: 93% General:Obese male lying in bed and no acute distress HEENT: Oropharynx clear, mmm, normal sclera Neck: Supple, no midline ttp Pulm: Clear to auscultation bilaterally with no w/r/r Cardiac: normal S1S2 with no m/g/r, normal pulses throughout Abd: soft, ND, NT without rebound/gaurding Skin: No rashes, no petechiae Neuro: Normal gait, speech and balance MSK: No lower extremity swelling or tenderness Psych: Normal mood, thought and affect ED Course: Patient was evaluated and discussed with Dr. Quijano Medications, allergies and past medical history reviewed Medications/fluids Administered: ASA 243mg, NTG 0.4 SL, heparin gtt and bolus Labwork was reviewed by me: CBC:No leukocytosis, hemoglobin 14.6, platelets 121 BMP:Unremarkable Troponin 0.67 EKG was reviewed by me: Normal sinus rhythm with a rate of 64 with T-wave inversions in leads 1 andaVL with no other acute ST or T-wave changes Films were reviewed by me: chest x-ray with subsegmental atelectasis Cardiology consulted and agreed to admission MDM: Rafael Álvarez is a 76 y.o. male who presents to the Emergency Department with complains of Jaw pressure. Patient has profound cardiac history with recent TAVR and pacemaker placement, as well as past CABG ??4 and stent placing graft roughly 2 years ago with jaw pain as his anginal equivalent. Patient's pain is improving but is still mild. He was treated with nitroglycerin and his pain went down to 1 out of 10 in severity. He overall feels his normal self. EKG was performed shortly after arrival and shows some artifact so was repeated and he does have T-wave inversions in leads 1 and aVL but no other acute ST changes. Labs were sent and his records were obtained from [facility]. He had arecent TTE which showed preserved EF. EKG was relatively unchanged from prior. Labs came back with slight thrombocytopenia, unremarkable lites lites and renal function, and troponin of 0.67. Chest x-ray with normal mediastinum and no opacities concerning for pneumonia. The symptoms are consistent with ACS and the patient was treated as an and STEMI. He was given aspirin 243 since he took a baby aspirin earlier today and this was given within 10 minutes of the patient's arrival. He was started on heparin bolus and GTT after discussion with cardiology. He had he took his Plavix 75 mg today so no additional Plavix will be given at this time. Diagnosis: NSTEMI Plan: - admitted to cardiology - Heparin GTT Luca Silverman MD Resident 05/18/17 1508 Associated attestation - Chris Quijano MD - 05/18/2017 3:47 PM EDT ED ATTENDING ATTESTATION NOTE The patient was seen in conjunction with the resident physician. I have independently performed thekey portions of the history and physical exam. I have personally reviewed nursing notes, vital signs, and diagnostic studies including labs, imaging studies and EKGs. I have discussed the details of the case with the resident and agree with the assessment and plan as described in the resident's note. documented in this encounter Miscellaneous Notes * Plan of Care - Jani Colindres RN - 05/20/2017 3:52 PM EDT Problem: Patient Care Overview Goal: Plan of Care Review Outcome: Ongoing (Interventions Implemented as Appropriate) 05/20/17 1550 Plan of Care Review Progress improving Coping/Psychosocial Plan Of Care Reviewed With patient;spouse OUTCOME EVALUATION NOTE: OUTCOME SUMMARY: VSS. A+O x4. Pt Desats when ambulating or sleeping, but these are anticipated with COPD. Denies chest pain, denies chest pressure. R groin site looks benign, with no drainage evidence on dressing, and no s/sx of ooze or bleed. Given education about BP and metoprolol. Also about weighing each am to monitor for fluid retention. PLAN MOVING FORWARD: D/C home INDIVIDUALIZED FALL PREVENTION INTERVENTIONS: Patient-specific fall risk factors per assessment: [current deficits]: Weak, Desats when ambulating, ECG wires, IV sites Assistance [level of assistance required for transfers and ambulation]: SBA w/ walker Supervision [direct monitoring required during toileting and ADLs]: independent Surveillance [continuous indirect monitoring]: Call best in reach, telemetry, family @ bedside Patient-specific fall prevention interventions for sensory deficits provided, if applicable: [X] Yes CPG GOAL OUTCOME EVALUATION: * Med Student Progress Note - Wilfrid Alex - 05/20/2017 7:12 AM EDT Cardiology S2 (9290) Progress Note Patient info: Name: Rafael Álvarez : 1940 PCP: None PCP phone number: None Date of Admission: 05/18/2017 ( Hospital Day 2 days ) Responsible Attending:Juan Jose Mills MD ID: Rafael Álvarez is a 76 y.o. male w/ PMH significant for hyperlipidemia, hypertension, CABG x 4??in the mid in [place], stent placed to graft in 2014, recent TAVR??and pacemaker placement forcomplete heart block in December of this year, prostate cancer (s/p radical prostatectomy) and COPD on home oxygen at night on HD# 1 admitted with NSTEMI. ?? Mr Álvarez came in yesterday afternoon after feeling jaw pressure and mild chest pain at 1am in the morning which felt like his previous chest pains before CABG and before stenting. He took a baby aspirin, metoprolol, and plavix and went to the emergency department, where troponins were positive (0.67) and ECG was negative for ischemia. In the ED he received 243mg of aspirin, sublingual nitroglycerin, a loading dose of 8000 units of heparin, and started heparin drip, which improved his jaw pain (was at 8/10, and now down to no pain). He was admitted to the cardiac unit for management of NSTEMI. 24 Hour Events/Subjective: He did well overnight. He has no n/v/d/c, no bowel movements this morning. No chest pain/pressure, no lightheadedness or dizziness. He also has no jaw pain. His blood pressure was 89/53 this morning when he was sitting and standing up so his metoprolol was held. At home it runs at 110/80. He also had some bleeding at his catheter site last night at 9pm. His BP went up after aggressive oral rehydration. Objective: Vitals Last value Range last 24 hrs Temperature Temp: 36.4 ??C (97.5 ??F) Temp: [36.4 ??C (97.5 ??F)-36.9 ??C (98.4 ??F)] Heart Rate Heart Rate: 77 Heart Rate: [62-77] Blood Pressure BP: 108/58 BP: (83-149)/(43-89) Art Line BP BP (Arterial Line): -- MAP (NBP): [56 mmHg-99 mmHg] Respiratory Rate Resp: 20 Resp: [16-28] SpO2 SpO2: 95 % SpO2: [92 %-100 %] Oxygen Delivery Oxygen Therapy O2 Device: None (Room air) O2 Flow Rate (L/min): 2 L/min Intake/Output Summary (Last 24 hours) at 05/20/17 0945 Last data filed at 05/20/17 09 Gross per 24 hour Intake 1840 ml Output 1800 ml Net 40 ml Patient Vitals for the past 168 hrs: Weight 05/20/17 0630 97.6 kg (215 lb 2.7 oz) 05/19/17 0400 98.6 kg (217 lb 6 oz) 05/18/17 1451 98 kg (216 lb) 05/18/17 1223 99.8 kg (220 lb) Admit wt: 99.79 kg Physical Exam: Gen: Well appearing. NAD. No increased work of breathing. His catheter site looks non-erythematous,and there are no masses on palpation, and no bruits on auscultation. HEENT: oropharynx nonerythematous. No exudates. Uvula midline and palate rises symmetrically. CV: RRR. Normal S1 and S2. No M/R/G. Pulm: Diffuse, diminished breath sounds throughout. Crackles and wheezes throughout. Abd: hypoactive bowel sounds. Soft, nondistended, nontender. Ext: Trace edema, No clubbing. Hands are cold with decreased turgur and 2s capilary refill. (He says this is normal and they have even turned white) Neuro: alert and appropriate. Non-focal. Grossly intact. Psych: cooperative. Lines/Tubes/Drains Peripheral IV Line - Single Lumen 05/18/17 1952 cephalic vein (lateral side of arm), left 20 gauge;1 in length (Active) Indication/Daily Review of Necessity fluid therapy continuous 05/19/2017 8:00 PM Site Preparation/Maintenance dressing: dry and intact 05/19/2017 8:00 PM Securement catheter stabilization device, secured with 05/19/2017 8:00 PM Patency/Maintenance infusing 05/19/2017 9:00 PM Phlebitis 0-->no symptoms 05/19/2017 9:00 PM Infiltration 0-->no symptoms 05/19/2017 9:00 PM Site Signs/Symptoms no redness;no swelling;no warmth;no pain;no palpable cord;no drainage;no streakformation 05/19/2017 9:00 PM Number of days:1 Peripheral IV Line - Single Lumen 05/19/17 0712 basilic vein (medial side of arm), left 20 gauge (Active) Indication/Daily Review of Necessity medication therapy intermittent 05/19/2017 9:32 PM Site Preparation/Maintenance dressing: dry and intact 05/19/2017 9:32 PM Securement catheter stabilization device, secured with 05/19/2017 9:32 PM Patency/Maintenance flushed without difficulty 05/19/2017 9:32 PM Phlebitis 0-->no symptoms 05/19/2017 9:32 PM Infiltration 0-->no symptoms 05/19/2017 9:32 PM Number of days:1 Medications: ??? magnesium sulfate 2 g Intravenous Once ### ??? aspirin 81 mg Oral Daily ### ??? sodium chloride 0.9 % 5 mL Intravenous BID ### ??? clopidogrel 75 mg Oral Daily ### ??? meTOPROLOL tartrate 25 mg Oral Q6H ALICIA ### ??? atorvastatin 40 mg Oral QPM ### ??? lisinopril 5 mg Oral Daily ### nitroGLYcerin, sodium chloride 0.9 %, lidocaine, acetaminophen, flu vacc (65 yrs+) (PF), ipratropium-albuterol Labs: CBC: Recent Labs 05/20/1743805/19/1733205/18/17 1251 WBC 5.6 5.9 5.0 HGB 14.2 14.2 14.2 HCT 42.9 42.5 41.8 PLATELET 116* 106* 108* NEUTROABS 4.03 4.15 3.33 Chemistry: Recent Labs 05/20/17 04305/19/1733205/18/17 1045 NA 140 139 141 K 4.5 4.3 4.9 CL 100 100 101 CO2 30 29 28 BUN 17 13 17 CREATININE 1.01 0.64* 0.84 GLUCOSE -- -- 139 ANIONGAP 10 10 12 Recent Labs 05/20/17 04305/19/1733205/18/17 1045 CALCIUM 8.7 8.7 9.3 MAGNESIUM 0.95 0.84 -- LFT's: No results for input(s): BILITOT, BILIDIR, ALBUMIN, ALKPHOS, ALT, AST in the last 7068 hours. Coags: Recent Labs 05/19/17 1051 05/19/17 0333 05/18/17 1945 05/18/17 1251 05/18/17 1045 PT -- -- -- -- Disregard INR -- -- -- -- Disregard PTT 92* >160.0* 115* 33 Disregard Cardiac enzymes: Recent Labs 05/19/17 1051 05/19/17 0333 05/18/17 2110 05/18/17 1045 TROPONINT 0.86* 1.02* 1.83* 0.67* CK 273* 397* 629* -- PROBNP -- -- -- 384 Endocrine: No results for input(s): TSH, CORTISOL in the last 7068 hours. Invalid input(s): UIBVFMPWBXC2H Heme: No results for input(s): LDH, HAPTOGLOBIN, URICACID in the last 168 hours. ABG: ABG (Arterial Blood Gas) No results found for: PHART, PO2ART, [id number], VSP9KSI Pertinent radiology/diagnostic studies: XR Chest 05/18/2017 IMPRESSION Low lung volumes with subsegmental atelectasis. ?? ECG 05/18/2017 11:02am Normal sinus rhythm Low voltage QRS Cannot rule out Anteroseptal infarct , age undetermined Abnormal ECG ?? ECG 05/18/2017 12:52pm Sinus rhythm with 1st degree A-V block Anteroseptal infarct (cited on or before 18-MAY-2017) Abnormal ECG ?? ECHO 05/19/2017 SUMMARY: 1. The left ventricular chamber size [...] size. 9. Please see full echo report. ?? Of note, his TAVR in December did not indicate angiography report of coronary arteries. Cardiac catheterization 05/19/2017 Conclusions: * Three vessel coronary artery disease [...] (see DAPT Recommendations above for more information.) ECG 05/19/2017 Normal sinus rhythm Septal infarct (cited on or before 18-MAY-2017) Abnormal ECG SUMMARY Rafael Álvarez is a 76 y.o. male w/ PMH of hyperlipidemia, hypertension, significant for CABG x 4??in the mid in [place], stent placed to graft in 2014, recent TAVR??and pacemaker placement for complete heart block in December of this year, and COPD on home oxygen at night on HD# 1 admitted for NSTEMI. This patient had chest/jaw pain, positive troponins, and an ECG without ST segment changes, consistent with NSTEMI. JULIO score 6 (age, [place] history, >3 risk factors, aspirin use, +troponins), meaning there is 26% risk at 14 days of all cause mortality, new or recurrent VT, or severe ischemia requiring urgent revascularization. Echo showed no wall motion abnormalities with normal EF. This is an uncomplicated NSTEMI. ?? ASSESSMENT/PLAN: #NSTEMI TAVR was conducted yesterday and a stent was placed in the saphenous vein graft. Considered increasing dose of lisinopril, however his blood pressures were soft this morning so we decided to keep thedose for now. - Restart metoprolol 25mg PO q6h - Continue clopidogrel 75mg PO daily - Continue atorvastatin 40mg PO daily - Continue aspirin 81mg PO daily - Continue lisinopril 5mg PO daily - Continue heparin drip - F/U previous cath report #Low blood pressure His blood pressures are low this morning but has risen after oral rehydration. He had low skin turgur and cold extremities. We considered giving 500mL normal saline bolus, but his pressures are doingwell with oral rehydration. - Continue to monitor ?? #Bleeing from catheter site Possible complications of catheter site include pseudoaneueysm, hematoma, and infection. However, the wound site looked like it was healing well with no bruits or masses. - Continue to monitor #COPD - Duoneb treatment PRN and q8h - On oxygen now. ?? #Electrolytes - Replenish Mg 2mg ?? # Routine Diet: NPO DVT PPX: Heparin drip GI PPX: Not indicated Activity: As tolerated CODE STATUS: Full Code Wilfrid Alex, MS3 05/20/2017 Cardiology S2 #[id number] * Plan of Care - Kary Love RN - 05/20/2017 6:46 AM EDT Problem: Cardiac Cath/Percutaneous Coronary Intervention (Adult) Goal: Signs and Symptoms of Listed Potential Problems Will be Absent, Minimized or Managed (CardiacCath/Percutaneous Coronary Intervention) Signs and symptoms of listed potential problems will be absent, minimized or managed by discharge/transition of care (reference Cardiac Cath/Percutaneous Coronary Intervention (Adult) CPG). Outcome: Ongoing (Interventions Implemented as Appropriate) 05/20/17 0641 Cardiac Cath/Percutaneous Coronary Intervention Problems Assessed (Cardiac Catheterization) all Problems Present (Cardiac Catheterization) access site complications OUTCOME EVALUATION NOTE: OUTCOME SUMMARY: Ramón found at 2000 with significant ooze at right groin site. MD called to bedside. No hematoma. Pressure held for approximately 20 minutes, new syvek placed. No further bleeding issues overnight. Midnight lopressor held per MD for soft BP in 90's. Up this am with no further issues. PLAN MOVING FORWARD: Ambulate, possible d/c home. INDIVIDUALIZED FALL PREVENTION INTERVENTIONS: Patient-specific fall risk factors per assessment: [current deficits]: Age, unsteady gait, impairedvision, equipment, intermittent soft BP. Assistance [level of assistance required for transfers and ambulation]: Stand by x 1 with walker asneeded. Supervision [direct monitoring required during toileting and ADLs]: Intermittent. Surveillance [continuous indirect monitoring]: Telemetry, pulse oximetry, purposeful hourly rounding. Patient-specific fall prevention interventions for sensory deficits provided, if applicable: Call best in reach, glasses at bedside. CPG GOAL OUTCOME EVALUATION: * Initial Assessments - Carmen Hughes RN - 05/19/2017 4:44 PM EDT Office of Care Management Initial Assessment Carmen Hughes??, RN reviewed record and discussed patient with Care Team. Source of Information: patient's daughter (patient was at a procedure) Introduced self/reviewed role; services accepted. Reason for Hospitalization: Reason for Admission as Stated by Patient: sore jaw Past Medical History: Diagnosis Date ??? Pacemaker 12/2016 ??? S/P CABG x 4 1994 ??? S/P TAVR (transcatheter aortic valve replacement) 12/2016 Hospitalizations Within the Past 30 Days: none Anticipated Length Of Stay (If known): Expected Length of Hospitalization: 3 Current Decision-Making Capacity: unable to asses Advance Care Planning: patient is a full code. Daughter states that patient has ADs that are on file at [facility] Current Coping/Education/Information Needs: No needs at this time Current Functional Ability: assist Functional Status Prior to Admission: independent Home Environment: Patient recently moved to [place], [place] and lives in a single story home Social & Family Supports/Community Resources: Patient lives with and has a daughter who lives nearby Behavioral Health History: none on file Substance Use/Abuse: Patient's daughter states that her dad does not smoke (former smoker), drinks 1-2 drinks a week and does not use illicit drugs Other Pertinent/Service Specific Information: NA Health/Prescription Coverage: Primary Insurance: MEDICARE Secondary Insurance: [employer] [place] Prescription Coverage: BC/BS Preferred Pharmacy[facility] Other: NA Primary Care Provider: None None Patient/Caregiver Goals of Treatment: to go home Potential Needs for Transition of Care: Rehab/SNF: NA Home Health: [facility]: NA Dialysis: NA Community Resources: NA Transportation: family Other: NA Anticipated Barriers to Discharge/Special Considerations: none Plan: patient will likely benefit from VNA services, follow up after procedure is needed to confirmthis. A member of the Care Management team will continue to monitor progress, follow for continuity of care and assist with transition of care planning. Carmen Burgos, RN Pager: [phone] * Plan of Care - Luann Black RN - 05/19/2017 3:34 PM EDT Problem: Patient Care Overview Goal: Plan of Care Review Outcome: Ongoing (Interventions Implemented as Appropriate) 05/19/17 0459 05/19/17 0817 Plan of Care Review Progress progress toward functional goals as expected -- Coping/Psychosocial Plan Of Care Reviewed With -- patient OUTCOME EVALUATION NOTE: OUTCOME SUMMARY: Ramón went to cardiac cath lab manager this afternoon, 1 REBECCA placed to SVG to RPDA.. Minimal jaw pain upon return. MINOR with ambulation. Given 2grams Mag. NSR/A-paced on tele with rare PVC's. and daughter in to visit. VSS. PLAN MOVING FORWARD: Hopeful d/c in the AM INDIVIDUALIZED FALL PREVENTION INTERVENTIONS: Patient-specific fall risk factors per assessment: [current deficits]: unfam env, tele wires, weakness Assistance [level of assistance required for transfers and ambulation]: SBA Supervision [direct monitoring required during toileting and ADLs]: intermittent Surveillance [continuous indirect monitoring]: Safety rounding Patient-specific fall prevention interventions for sensory deficits provided, if applicable: N/A CPG GOAL OUTCOME EVALUATION: * Med Student Progress Note - AlexSydWilfrid Y - 05/19/2017 7:10 AM EDT Cardiology S2 (4038) Progress Note Patient info: Name: Rafael Álvarez : 1940 PCP: None PCP phone number: None Date of Admission: 05/18/2017 ( Hospital Day 1 day ) Responsible Attending:Juan Jose Mills MD ID: Rafael Álvarez is a 76 y.o. male w/ PMH significant for hyperlipidemia, hypertension, CABG x 4 in the mid in [place], stent placed to graft in 2014, recent TAVR and pacemaker placement for complete heart block in December of this year, prostate cancer (s/p radical prostatectomy) and COPD on home oxygen at night on HD# 1 admitted with NSTEMI. Mr Álvarez came in yesterday afternoon after feeling jaw pressure and mild chest pain at 1am in the morning which felt like his previous chest pains before CABG and before stenting. He took a baby aspirin, metoprolol, and plavix and went to the emergency department, where troponins were positive (0.67) and ECG was negative for ischemia. In the ED he received 243mg of aspirin, sublingual nitroglycerin, a loading dose of 8000 units of heparin, and started heparin drip, which improved his jaw pain (was at 8/10, and now down to no pain). He was admitted to the cardiac unit for management of NSTEMI. 24 Hour Events/Subjective: We started Metoprolol 25 mg p.o. every 6 hours, started Lisinopril 5mg, started Heparin drip, continued clopidogrel 75 mg p.o., continued simvastatin 40mg daily, Continued aspirin 81 mg daily. TTE conducted this morning, and he is NPO and will have cath this afternoon. He does endorse shortness of breath today but this is unchanged from his baseline due to his COPD. He has no pain now. Objective: Vitals Last value Range last 24 hrs Temperature Temp: 36.6 ??C (97.9 ??F) Temp: [36.4 ??C (97.5 ??F)-36.8 ??C (98.2 ??F)] Heart Rate Heart Rate: 60 Heart Rate: [60-70] Blood Pressure BP: 108/67 BP: (108-167)/(59-95) Art Line BP BP (Arterial Line): -- MAP (NBP): [72 mmHg-107 mmHg] Respiratory Rate Resp: 23 Resp: [14-32] SpO2 SpO2: 97 % SpO2: [90 %-97 %] Oxygen Delivery Oxygen Therapy O2 Device: Nasal cannula O2 Flow Rate (L/min): 2 L/min Intake/Output Summary (Last 24 hours) at 05/19/17 0958 Last data filed at 05/19/17 0929 Gross per 24 hour Intake 975 ml Output 1725 ml Net -750 ml Patient Vitals for the past 168 hrs: Weight 05/19/17 0400 98.6 kg (217 lb 6 oz) 05/18/17 1451 98 kg (216 lb) 05/18/17 1223 99.8 kg (220 lb) Admit wt: 99.79 kg Physical Exam: Gen: NAD. HEENT: oropharynx nonerythematous. No exudates. Uvula midline and palate rises symmetrically. CV: RRR. Normal S1 and S2. No M/R/G. Pulm: Diminished breath sounds diffusely. Rales present. No wheezes or rhonchi. Abd: hypoactive bowel sounds. Soft, nondistended, nontender. Ext: Trace edema, no clubbing or cyanosis. Neuro: alert and appropriate. Non-focal. Grossly intact. Psych: cooperative. Lines/Tubes/Drains Peripheral IV Line - Single Lumen 05/18/171951 cephalic vein (lateral side of arm), left 20 gauge;1 in length (Active) Indication/Daily Review of Necessity medication therapy continuous 05/19/2017 3:30 AM Site Preparation/Maintenance dressing: dry and intact 05/19/2017 3:30 AM Securement catheter stabilization device, secured with 05/19/2017 3:30 AM Patency/Maintenance infusing 05/19/2017 3:30 AM Phlebitis 0-->no symptoms 05/19/2017 3:30 AM Infiltration 0-->no symptoms 05/19/2017 3:30 AM Site Signs/Symptoms no redness;no warmth;no swelling;no pain;no palpable cord;no streak formation;no drainage 05/19/2017 3:30 AM Number of days:0 Medications: ??? aspirin 243 mg Oral Daily ### ??? sodium chloride 0.9 % 5 mL Intravenous BID ### ??? clopidogrel 75 mg Oral Daily ### ??? meTOPROLOL tartrate 25 mg Oral Q6H ALICIA ### ??? atorvastatin 40 mg Oral QPM ### ??? lisinopril 5 mg Oral Daily ### nitroGLYcerin, heparin (porcine) AND heparin (porcine), sodium chloride 0.9 %, lidocaine, nitroGLYcerin, acetaminophen, flu vacc (65 yrs+) (PF), ipratropium-albuterol ??? heparin (porcine) 1,200 Units/hr (05/19/17 0850) ??? nitroGLYcerin Stopped (05/18/17 1334) Labs: CBC: Recent Labs 05/19/17 0333 05/18/17 1251 05/18/17 1148 WBC 5.9 5.0 5.3 HGB 14.2 14.2 14.6 HCT 42.5 41.8 43.5 PLATELET 106* 108* 121* NEUTROABS 4.15 3.33 3.47 Chemistry: Recent Labs 05/19/17 0333 05/18/17 1045 NA 139 141 K 4.3 4.9 CL 100 101 CO2 29 28 BUN 13 17 CREATININE 0.64* 0.84 GLUCOSE -- 139 ANIONGAP 10 12 Recent Labs 05/19/17 0333 05/18/17 1045 CALCIUM 8.7 9.3 MAGNESIUM 0.84 -- LFT's: No results for input(s): BILITOT, BILIDIR, ALBUMIN, ALKPHOS, ALT, AST in the last 7068 hours. Coags: Recent Labs 05/19/17 0333 05/18/17 1945 05/18/17 1251 05/18/17 1045 PT -- -- -- Disregard INR -- -- -- Disregard PTT >160.0* 115* 33 Disregard Cardiac enzymes: Recent Labs 05/19/17 0333 05/18/17 2110 05/18/17 1045 TROPONINT 1.02* 1.83* 0.67* CK 397* 629* -- PROBNP -- -- 384 Endocrine: No results for input(s): TSH, CORTISOL in the last 7068 hours. Invalid input(s): [id number] Heme: No results for input(s): LDH, HAPTOGLOBIN, URICACID in the last 168 hours. ABG: ABG (Arterial Blood Gas) No results found for: PHART, PO2ART, ELQ7WBW, KDF1IZC Pertinent radiology/diagnostic studies: XR Chest 05/18/2017 IMPRESSION Low lung volumes with subsegmental atelectasis. ECG 05/18/2017 11:02am Normal sinus rhythm Low voltage QRS Cannot rule out Anteroseptal infarct , age undetermined Abnormal ECG ECG 05/18/2017 12:52pm Sinus rhythm with 1st degree A-V block Anteroseptal infarct (cited on or before 18-MAY-2017) Abnormal ECG ECHO 05/19/2017 SUMMARY: 1. The left ventricular chamber size [...] size. 9. Please see full echo report. Of note, his TAVR in december did not indicate angiography report of coronary arteries. ASSESSMENT/PLAN: Rafael Álvarez is a 76 y.o. male w/ PMH of hyperlipidemia, hypertension, significant for CABG x 4in the mid in [place], stent placed to graft in 2014, recent TAVR and pacemaker placement for complete heart block in December of this year, and COPD on home oxygen at night on HD# 1 admitted for NSTEMI. #NSTEMI This patient has chest/jaw pain, positive troponins (1.02 this morning), and an ECG without ST segment changes, consistent with NSTEMI. JULIO score 6 (age, VT history, >3 risk factors, aspirin use,+troponins), meaning there is 26% risk at 14 days of all cause mortality, new or recurrent VT, or severe ischemia requiring urgent revascularization. Echo showed no wall motion abnormalities with normal EF. This is an uncomplicated NSTEMI. No mention of coronary stenosis during TAVR - we want to see this coronary artery report as this patient may be a candidate for medical therapy. Since we do not have this, we will conduct angiography with possible stent this afternoon. - Continue metoprolol 25mg PO q6h - Continue clopidogrel 75mg PO daily - Continue atorvastatin 40mg PO daily - Continue aspirin 81mg PO daily - Continue lisinopril 5mg PO daily - Continue heparin drip - NPO for cath this afternoon - F/U previous cath report #COPD - Duoneb treatment PRN and q8h - On oxygen now. #Electrolytes - Replenish Mg 2mg # Routine Diet: NPO DVT PPX: Heparin drip GI PPX: Not indicated Activity: As tolerated CODE STATUS: Full Code Wilfrid Alvarez Isai, MS3 05/19/2017 Cardiology S2 #3417 * Plan of Care - Kary Love RN - 05/19/2017 4:59 AM EDT Problem: Patient Care Overview Goal: Plan of Care Review Outcome: Ongoing (Interventions Implemented as Appropriate) 05/19/17 5861 Plan of Care Review Progress progress toward functional goals as expected Coping/Psychosocial Plan Of Care Reviewed With patient OUTCOME EVALUATION NOTE: OUTCOME SUMMARY: Ramón had an uneventful night. He denied chest pain throughout shift. Heparin gtt continued. [address]. Trops + overnight. VSS. PLAN MOVING FORWARD: NPO cardiac cath today. TTE. INDIVIDUALIZED FALL PREVENTION INTERVENTIONS: Patient-specific fall risk factors per assessment: [current deficits]: Age, equipment, medications,impaired vision. Assistance [level of assistance required for transfers and ambulation]: Stand by x 1 Supervision [direct monitoring required during toileting and ADLs]: Intermittent. Surveillance [continuous indirect monitoring]: Telemetry, pulse oximetry, purposeful hourly rounding. Patient-specific fall prevention interventions for sensory deficits provided, if applicable: Call best in reach, glasses at bedside. CPG GOAL OUTCOME EVALUATION: * Plan of Care - Luann Black RN - 05/18/2017 4:02 PM EDT Problem: Patient Care Overview Goal: Plan of Care Review Outcome: Ongoing (Interventions Implemented as Appropriate) 05/18/17 1517 05/18/17 1559 Plan of Care Review Progress -- improving Coping/Psychosocial Plan Of Care Reviewed With patient;spouse -- OUTCOME EVALUATION NOTE: OUTCOME SUMMARY: Ramón arrived from ED at approx 1430. NSR/A-pacing on tele. BP slightly elevated. Metoprolol PO initiated. Denies any cp/jaw pain. Nitro gtt held for now. Positive trops. Heparin gtt infusing. Placed on 2L intermittently for desats, wears home oxygen at home when he feels he needs it with MINOR and atnight while asleep. Family in visiting and patient singing along with leandratim. PLAN MOVING FORWARD: NPO at midnight for possible cath? INDIVIDUALIZED FALL PREVENTION INTERVENTIONS: Patient-specific fall risk factors per assessment: [current deficits]: unfam env, tele wires, weakness Assistance [level of assistance required for transfers and ambulation]: SBA Supervision [direct monitoring required during toileting and ADLs]: Intermittent Surveillance [continuous indirect monitoring]: Safety rounding Patient-specific fall prevention interventions for sensory deficits provided, if applicable:N/A CPG GOAL OUTCOME EVALUATION: * ED Triage - Yusra Grant RN - 05/18/2017 10:42 AM EDT Pt presents to the ED AAOX4 c/o jaw pain and chest pressure starting last night. PT states, The chest pressure is pretty much gone but I do still have an ache in my jaw. It feels like it did when Ihad my last CABG don. Denies SOB, cough, weakness, numbness tingling. PT has Pacemaker. Respirations even and unlabored. Skin pink warm and dry documented in this encounter Plan of Treatment Upcoming Encounters Date Type Department Care Team (Late st Contact Info) Description 08/31/2024 10:00 AM EST Hospital Encounter [place] [address] Arrived documented as of this encounter Procedures Procedure Name Priority Date/Time Associated Diagnosis Comments BMP W/FASTING GLUCOSE Routine 05/20/2017 4:39 AM EDT HEMOGRAM Routine 05/20/2017 4:39 AM EDT DIFFERENTIAL, AUTOMATED Routine 05/20/20 17 4:39 AM EDT CBC (WITH DIFF) Routine 05/20/2017 4:39 AM EDT MAGNESIUM Routine 05/20/2017 4:39 AM EDT EKG 12-LEAD STAT 05/19/2017 4:34 PM EDT Non-ST elevation myocardial infarction (NSTEMI) CARDIAC CATHETERIZATION Routine 05/19/20 17 3:15 PM EDT CARDIAC ENZYMES ([facility]) Routine 05/19/2017 10:51 AM EDT APTT STAT 05/19/2017 10:51 AM EDT ECHO COMPLETE W CONTRAST Routine 05/19/2017 8:34 AM EDT NSTEMI (non-ST elevated myocardial infarction) BMP W/FASTING GLUCOSE Routine 05/19/2017 3:33 AM EDT HEMOGRAM STAT 05/19/2017 3:33 AM EDT DIFFERENTIAL, AUTOMATED STAT 05/19/20 3:33 AM EDT CARDIAC EN[place] Routine 05/19/2017 3:33 AM EDT APTT STAT 05/19/2017 3:33 AM EDT CBC (WITH DIFF) STAT 05/19/2017 3:33 AM EDT MAGNESIUM Routine 05/19/2017 3:33 AM EDT CARDIAC ENZYMES ([facility] Routine 05/18/2017 9:10 PM EDT APTT STAT 05/18/2017 7:45 PM EDT XR CHEST PA AND LATERAL STAT 05/18/20 1:04 PM EDT EKG 12-LEAD STAT 05/18/2017 12:52 PM EDT HEMOGRAM STAT 05/18/2017 12:51 PM EDT DIFFERENTIAL, AUTOMATED STAT 05/18/20 12:51 PM EDT APTT STAT 05/18/2017 12:51 PM EDT CBC (WITH DIFF) STAT 05/18/2017 12:51 PM EDT HEMOGRAM STAT 05/18/2017 11:48 AM EDT DIFFERENTIAL, AUTOMATED STAT 05/18/20 17 11:48 AM EDT CBC (WITH DIFF) STAT 05/18/2017 11:48 AM EDT EKG 12-LEAD STAT 05/18/2017 11:02 AM EDT GOLD TUBE HOLD STAT 05/18/2017 10:45 AM EDT APTT STAT 05/18/2017 10:45 AM EDT PROTHROMBIN TIME STAT 05/18/2017 10:4 5 AM EDT TROPONIN STAT 05/18/2017 10:45 AM EDT PRO-BRAIN NATRIURETIC PEPTIDE STAT 05/18/2017 10:45 AM EDT BASIC METABOLIC PANEL STAT 05/18/2017 10:45 AM EDT AUTOMOBILE PARKER SCAN 05/18/2017 12:00 AM EDT documented in this encounter Results * (ABNORMAL) Differential, Automated (05/20/2017 4:39 AM EDT) Neutrophil % 71.8 % [facility] Neutrophil Absolute 4.03 1.70 - 6.10 x10(3)/mc L [facility] Lymph % 14.6 % [facility] Lymphocytes Abs 0.8(L) 0.9 - 3.2 x10(3)/mc L [facility] Monocyte % 11.8 % [facility] Monocyte Abs 0.7 0.3 - 0.9 x10(3)/mc L [facility] Eos % 1.4 % [facility] Eosinophils Abs 0.1 0.0 - 0.4 x10(3)/mc L [facility] Basophil % 0.2 % [facility] Baso Absolute 0.0 0.0 - 0.1 x10(3)/mc L [facility] Immature Gran % 0.20 % [facility] Comment: Immature granulocytes(IG's)percentage and absolute count will include metamyelocytes, myelocytes, and promyelocytes. Blood smears from CBCs yielding IG's will be scanned manually for concordance. If this scan disagrees with the automated IG or if promyelocytes are noted, a manual differential will be performed. Immature Gran Absolute 0.01 0.00 - 0.04 x10(3)/mc L [facility] Blood specimen (specimen) 05/20/2017 4:39 AM EDT 05/20/2017 5:13 AM EDT Narrative Resulting Agency Comment Spec In Lab Juan Jose Mills MD HEMATOLOGY ORDERABLE S [facility] [place] [address] * (ABNORMAL) Hemogram (05/20/2017 4:39 AM EDT) White Blood Cell 5.6 4.0 - 9.5 x10(3)/mc L [facility] Red Blood Cell 4.40(L) 4.58 - 5.54 x10(6)/mc L [facility] Hemoglobin 14.2 13.7 - 16.5 gm/dL [facility] Hematocrit 42.9 40.5 - 48.5 % [facility] Mean Cell Volume 97.5(H) 82.9 - 93.1 fL [facility] Mean Cell Hemoglobin 32.3(H) 27.5 - 32.1 pg [facility] Mean Cell Hemoglobin Concentration 33.1 32.0 - 35.7 gm/dL [facility] Platelet 116(L) 145 - 357 x10(3)/mc L [facility] RDW Standard Deviation 47.1(H) 36.0 - 45.0 fL [facility] RDW coefficient of variation 13.2 11.4 - 13.8 % [facility] Mean Platelet Volume 9.3 7.6 - 12.9 fL [facility] NRBC% auto 0.0 % [facility] NRBC Absolute 0.000 0.000 - 0.000 x10(3)/mc L [facility] Blood specimen (specimen) 05/20/2017 4:39 AM EDT 05/20/2017 5:13 AM EDT Narrative Resulting Agency Comment Spec In Lab Juan Jose Mills MD HEMATOLOGY ORDERABLE S Performing Organization Address City/[facility]/ZIP Co de Phone Number [facility] [place] [address] * Magnesium (05/20/2017 4:39 AM EDT) Magnesium 0.95 0.69 - 1.07 mmol/L [facility] Blood specimen (specimen) 05/20/2017 4:39 AM EDT 05/20/2017 5:13 AM EDT Narrative Resulting Agency Comment Spec In Lab Juan Jose Milsl MD CHEMISTRY ORDERABLES Performing Organization Address [facility] Co de Phone Number [facility] [place] [address] * BMP w/fasting Glucose (05/20/2017 4:39 AM EDT) Glucose Fasting 93 65 - 99 mg/dL [facility] Comment: ?Fasting* Glucose Interpretive [...] of Diabetes Mellitus, Position Statement from the [place] [employer]. ??Diabetes Care, Volume 33, Supplement 1, Aug 2009 Blood Urea Nitrogen 17 10 - 20 mg/dL [facility] Creatinine 1.01 0.80 - 1.50 mg/dL [facility] Comment: Please note that the pediatric reference intervals supplied above were not validated at [facility]. Results from pediatric patients should be interpreted in conjunction to the patient's age, height and muscle mass. Sodium 140 135 - 145 mmol/L [facility] Potassium 4.5 3.5 - 5.0 mmol/L [facility] Comment: Please note: ??Patients with WBC >100,000 may have falsely elevated Potassium levels. ??For accurate Potassium quantification in these patients send serum separator tube (gold top) for subsequent determinations. ??Contact the Clinical Chemistry Laboratory if there are any questions. Chloride 100 98 - 107 mmol/L [facility] Carbon Dioxide 30 22 - 31 mmol/L [facility] Anion Gap 10 5 - 15 mmol/L [facility] Calcium 8.7 8.5 - 10.5 mg/dL [facility] Est Glomerular Filtration Rate >60 >=60 [facility] Comment: This estimated GFR (eGFR) value was calculated using the MDRD equation which has been validated on patients between the ages of 18 and 70. The MDRD should not be used to assess kidney function in patients < 18 years of age or in patients with extremes of body mass, or in patients with acute kidney failure. This value should be multiplied by 1.2 for patients. For further information please copy and paste the following links into your internet browser. [email or web address] Blood specimen (specimen) 05/20/2017 4:39 AM EDT 05/20/2017 5:13 AM EDT Narrative Resulting Agency Comment Spec In Lab Juan Jose Mills MD CHEMISTRY ORDERABLES [facility] [place] [address] * EKG 12 Lead (05/19/2017 4:34 PM EDT) Ventricular rate 65 BPM MUSE SYSTEM Atrial Rate 65 BPM MUSE SYSTEM P-R Interval 206 ms MUSE SYSTEM QRS Duration 86 ms MUSE SYSTEM Q-T Interval 436 ms MUSE SYSTEM QTC Calculated (Bezet) 453 ms MUSE SYSTEM Calculated P [place] 57 degrees MUSE SYSTEM Calculated R [place] -5 degrees MUSE SYSTEM Calculated T [place] 100 degrees MUSE SYSTEM INTERPRETATION Normal sinus rhythm Septal infarct (cited on or before 18-MAY-2017 ) Abnormal ECG When compared with ECG of 18-MAY-2017 12:52, [place] interval is slightly shorter Confirmed by MD Kg, Shakir Adams ([id number]) on 05/19/2017 5:36:21 PM MUSE SYSTEM 05/19/2017 4:34 PM EDT 05/19/2017 5:36 PM EDT Juan Jose Mills MD ECG ORDERABLES MUSE SYSTEM * CARDIAC CATHETERIZATION (05/19/2017 3:15 PM EDT) Anatomical Region Laterality Modality Other Narrative 05/19/2017 4:23 PM EDT ?[facility] ? Cardiac Catheterization/Intervention Report ? Patient Name: Lance Álvarezdrick García. ? Procedure Date: 05/19/2017 ? A #: [id number] ? Primary Physician: Oly Stroud ? Case #: [id number] ? File Name: [id number] ? Catheterization Order Number: [id number] ? [facility] ? Final Report [place], [place] ? Patient Name: ? Rafael J. [place] ?ID#: ?[id number] ? : ?1940 ? Procedure Date: ? May 19, 2017 ?Case #: ? [id number] ? Room: ? 5 ? Case Physician: ? Oly Stroud M.D. ? Start: ?15:03 ?Fellow: ? Daniele Patel M.D. ? Admission: ??05/18/2017 ? Discharge: ??05/20/2017 ? Procedures: ?* Coronary Angiography ?* Bypass Graft Study ?* Bypass Graft Stent Insertion ?* Access Site Angiography ? History ?Rafael Álvarez is a 76 year old man. He has hypertension. The patient ?has hypercholesterolemia. He has unstable angina, positive troponin, a ?history of chest pain and a prior history of coronary artery disease. The ?patient is status post an acute non-ST elevation myocardial infarction as ?well as a remote myocardial infarction. He had a recent coronary ?intervention procedure. The patient had recent coronary artery bypass ?surgery and remote coronary artery bypass surgery. He has a history of ?dyspnea with NYHA functional class III. The patient has a history of a ?prior aortic valve replacement with a biological prosthesis. He also has ?a history of an abnormal echocardiogram. Prior to the initiation of this ?procedure, the patient was designated as ASA Class III. ? Patient Status at Catheterization: ?The patient presented with: non-STEMI (w/i 7 days). [place] ?Cardiovascular Society angina class was IV. This patient was on beta ?blockers prior to the procedure. No stress or imaging studies were ?performed prior to this procedure. The status of the diagnostic procedure ?was Urgent. ? Technique: ?A 5Fr sheath was inserted in the right femoral artery utilizing the ?Seldinger technique. The mammary artery was injected utilizing a 5Fr GORDON ?catheter. A 5Fr JL 4 catheter was used to inject the left coronary ?artery. The right coronary artery was injected utilizing a 5Fr JR 4 ?catheter. A 5Fr GORDON catheter was used to inject the bypass graft. The ?saphenous vein graft was injected utilizing a 5Fr JR 4 catheter. A 5Fr ?multipurpose A-2 catheter was used to inject the saphenous vein graft. ?Bypass graft stent insertion was performed and the equipment utilized ?will be described in the intervention summary section. 4,000 units of ?heparin were administered. A total of 150cc of Omnipaque were opened, ?142cc of Omnipaque were administered and 8cc of Omnipaque were wasted. ?Radiation: Fluoro time was 18.0 minutes, dose area product was 121,175 ?mGYcm2 and air kerma was 1,835 mGY. ?The patient received the following medications prior to and during the ?procedure: Aspirin (any), Clopidogrel and Unfractionated Heparin (any). ? Hemodynamics: ?Left Heart Pressures ? Resting: ? Syst Diast ? EDP ?a ?v ? m ?Ao 109 ?? 73 ?91 ? Coronary Angiography: ?Dominance: Right ?Left Main ? There was mild diffuse (<=25% stenosis) disease of the entire vessel ? segment of the left main artery. ?Left Anterior Descending ? There was a single discrete total occlusion of the proximal segment ? of the left anterior descending artery (LAD). ??Distal flow was ? normal and was via a bypass graft. ?Left Circumflex ? There was a single discrete total occlusion of the proximal segment ? of the left circumflex artery (LCX). ??Distal flow was normal and was ? via a bypass graft. ?Right Coronary Artery ? There was a single discrete total occlusion of the distal segment of ? the right coronary artery (RCA). ??Distal flow was normal and was via ? a bypass graft. ? There was a single discrete total occlusion of the proximal segment ? of the right posterior descending branch (RPDA) of the RCA. ??Distal ? flow was normal and was via a bypass graft. ? Bypass Grafts: ?There was a total of three bypass grafts evaluated during this procedure. ?1. ?? Saphenous vein graft to the RPDA ? There was a saphenous vein graft with a single anastomosis to the ? right posterior descending branch (RPDA) of the RCA. ? There was a 95% single discrete stenosis of the mid portion of the ? segment of this graft between the origin of this graft and the RPDA. ? This lesion represented in-stent restenosis following a prior ? coronary bypass graft stent insertion. ? SVG to RPDA was treated with PCI in 2014. ??There is severe in- stent ? restenosis in the stented segment (95%). ?2. ?? Left internal mammary artery graft to the LAD ? There was a left internal mammary artery graft with a single ? anastomosis to the left anterior descending artery (LAD). ? There was no evidence of obstruction in this graft. Distal flow was ? normal. ?3. ?? Saphenous vein graft to the OM1 ? There was a saphenous vein graft with a single anastomosis to the ? first obtuse marginal branch (OM1) of the LCX. ? There was no evidence of obstruction in this graft. Distal flow was ? normal. ? Indication for Intervention: ?Coronary intervention was indicated for primary therapy for an acute ?myocardial infarction. Left Ventricular Ejection fraction was not ?assessed. The priority for the procedure was Urgent. The NCDR indication ?for the procedure was PCI for high risk Non-STEMI or unstable angina. ? Intervention Summary: ?Saphenous vein graft to the RPDA ? Between the origin of this graft and the RPDA - Mid 95% ? Stent insertion was performed on the 95% stenosis in the mid ? portion of the segment of this graft between the origin of ? this graft and the RPDA. This was a drug eluting in- stent ? restenosis lesion. According to the ACC/AHA classification ? system, this lesion was a type C moderate risk lesion. ? Management of recurrent restenosis was the indication for ? stent insertion. This was the culprit lesion. Vessel flow pre ? intervention was JULIO 3. This was a previously treated lesion ? within >2 years. ? Stent insertion was accomplished through a 6 Fr. MP 1 guide. ? The lesion was predilated with a 2.50mm EUPHORA 15 MM balloon ? with a maximum inflation pressure of 12 atmospheres. ??A ? premounted 3.00 x 18 mm Xience Alpine (REBECCA) was deployed with ? a maximum inflation pressure of 14 atmospheres. ??Following ? stent deployment, the lesion was dilated using a 3.50mm NC ? EUPHORA 15 MM balloon with a maximum inflation pressure of 12 ? atmospheres. ? The final outcome was defined as successful. There was no ? residual stenosis following this intervention. The final JULIO ? flow was 3. ? Vascular Access: ?Vascular Access Angiogram: ? A selective angiogram at the right femoral artery revealed no ? significant obstructive disease. ?Vascular Access Management: ? A 6 Fr Perclose was deployed at the right femoral artery access ? site. This device was successful. ? Dual Antiplatelet (DAPT) Recommendations: ?Drug eluting stent (REBECCA) inserted. ?Patient was on chronic DAPT on arrival to the cardiac cath lab manager. ?Recommend continuing clopidogrel 75 mg PO daily for 12 months. ??Recommend ?continuing aspirin 81 mg unless intolerant. ?The DAPT score is 2. ??The DAPT score calculates net clinical benefit of ?prolonged dual antiplatelet therapy following percutaneous coronary ?intervention. A DAPT Score of equal or greater than 2 suggests an ?increased risk of late stent thrombosis and MACCE. If the DAPT score is ?equal or greater than 2 and the patient tolerates the recommended ?duration of DAPT without bleeding or side effects, consider extending the ?DAPT to 30 months post procedure. ? 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 Complications/Events: ?The patient had no complications during these procedures. ? Comments: ?Pt referred for diagnostic coronary and graft angiography for chest pain ?and positive biomarkers. ??Coronary angiography showed severe chalkyitsik 3VD. ?DUVAL to LAD and SVG to OM1 are patent. ??SVG to RPDA has a severe ?in-stenotic lesion which was treated with repeat REBECCA PCI with good result ?and normal flow. ??Recommend optimal medical therapy for secondary ?prevention of CVD. ?The attending physician was present for the entire procedure. ?Dr. Oly Stroud M.D. was present during the moderate sedation intraservice ?time as documented by the sedation nurse. ??Case time = 01:00. ?Dr. Oly Stroud M.D. performed the coronary angiography, bypass graft ?study, stent insertion-bypass graft and access site angiography. ? Oly Stroud M.D. ? Electronically Signed by: Oly Stroud M.D. ? Report Finalized: 05/19/2017 ??16:16 ? Report Last Ammended: 11/01/2017 ??10:53 ? Procedure Note Oly Stroud MD - 11/01/2017 [facility] Cardiac Catheterization/Intervention Report Patient Name: Rafael Álvarez Procedure Date: 05/19/2017 A #: [id number] Primary Physician: Oly Stroud Case #: [id number] File Name: [id number] Catheterization Order Number: [id number] [facility] FinalReport [place], [place] Patient Name: Rafael Álvarez ID#:[id number] :1940 Procedure Date: May 19, 2017 Case #: [id number] Room: 5 Case Physician: Oly Stroud M.D. Start: 15:03 Fellow: Daniele Patel M.D. Admission:05/18/2017 Discharge:05/20/2017 Procedures: * Coronary Angiography * Bypass Graft Study * Bypass Graft Stent Insertion * Access Site Angiography History Rafael Álvarez is a 76 year old man. He has hypertension. Thepatient has hypercholesterolemia. He has unstable angina, positive troponin,a history of chest pain and a prior history of coronary arterydisease. The patient is status post an acute non-ST elevation myocardialinfarction as well as a remote myocardial infarction. He had a recent coronary intervention procedure. The patient had recent coronary arterybypass surgery and remote coronary artery bypass surgery. He has a historyof dyspnea with NYHA functional class III. The patient has a history ofa prior aortic valve replacement with a biological prosthesis. He alsohas a history of an abnormal echocardiogram. Prior to the initiation ofthis procedure, the patient was designated as ASA Class III. Patient Status at Catheterization: The patient presented with: non-STEMI (w/i 7 days). [place] [employer] angina class was IV. This patient was on beta blockers prior to the procedure. No stress or imaging studies were performed prior to this procedure. The status of the diagnosticprocedure was Urgent. Technique: A 5Fr sheath was inserted in the right femoral artery utilizing the Seldinger technique. The mammary artery was injected utilizing a 5FrIMA catheter. A 5Fr JL 4 catheter was used to inject the left coronary artery. The right coronary artery was injected utilizing a 5Fr JR 4 catheter. A 5Fr GORDON catheter was used to inject the bypass graft.The saphenous vein graft was injected utilizing a 5Fr JR 4 catheter. A5Fr multipurpose A-2 catheter was used to inject the saphenous veingraft. Bypass graft stent insertion was performed and the equipmentutilized will be described in the intervention summary section. 4,000 unitsof heparin were administered. A total of 150cc of Omnipaque wereopened, 142cc of Omnipaque were administered and 8cc of Omnipaque werewasted. Radiation: Fluoro time was 18.0 minutes, dose area product [id number] mGYcm2 and air kerma was 1,835 mGY. The patient received the following medications prior to and duringthe procedure: Aspirin (any), Clopidogrel and Unfractionated Heparin(any). Hemodynamics: Left Heart Pressures Resting: Syst Diast EDP a v m Ao 109 73 91 Coronary Angiography: Dominance: Right Left Main There was mild diffuse (<=25% stenosis) disease of the entirevessel segment of the left main artery. Left Anterior Descending There was a single discrete total occlusion of the proximalsegment of the left anterior descending artery (LAD). Distal flow was normal and was via a bypass graft. Left Circumflex There was a single discrete total occlusion of the proximalsegment of the left circumflex artery (LCX). Distal flow was normaland was via a bypass graft. Right Coronary Artery There was a single discrete total occlusion of the distalsegment of the right coronary artery (RCA). Distal flow was normal andwas via a bypass graft. There was a single discrete total occlusion of the proximalsegment of the right posterior descending branch (RPDA) of the RCA.Distal flow was normal and was via a bypass graft. Bypass Grafts: There was a total of three bypass grafts evaluated during thisprocedure. 1. Saphenous vein graft to the RPDA There was a saphenous vein graft with a single anastomosis tothe right posterior descending branch (RPDA) of the RCA. There was a 95% single discrete stenosis of the mid portion ofthe segment of this graft between the origin of this graft and theRPDA. This lesion represented in-stent restenosis following a prior coronary bypass graft stent insertion. SVG to RPDA was treated with PCI in 2015. There is severein-stent restenosis in the stented segment (95%). 2. Left internal mammary artery graft to the LAD There was a left internal mammary artery graft with a single anastomosis to the left anterior descending artery (LAD). There was no evidence of obstruction in this graft. Distal flowwas normal. 3. Saphenous vein graft to the OM1 There was a saphenous vein graft with a single anastomosis tothe first obtuse marginal branch (OM1) of the LCX. There was no evidence of obstruction in this graft. Distal flowwas normal. Indication for Intervention: Coronary intervention was indicated for primary therapy for an acute myocardial infarction. Left Ventricular Ejection fraction was not assessed. The priority for the procedure was Urgent. The NCDRindication for the procedure was PCI for high risk Non-STEMI or unstableangina. Intervention Summary: Saphenous vein graft to the RPDA Between the origin of this graft and the RPDA - Mid 95% Stent insertion was performed on the 95% stenosis in themid portion of the segment of this graft between the originof this graft and the RPDA. This was a drug eluting in-stent restenosis lesion. According to the ACC/AHAclassification system, this lesion was a type C moderate risk lesion. Management of recurrent restenosis was the indication for stent insertion. This was the culprit lesion. Vessel flowpre intervention was JULIO 3. This was a previously treatedlesion within >2 years. Stent insertion was accomplished through a 6 Fr. MP 1guide. The lesion was predilated with a 2.50mm EUPHORA 15 MMballoon with a maximum inflation pressure of 12 atmospheres. A premounted 3.00 x 18 mm Xience Alpine (REBECCA) was deployedwith a maximum inflation pressure of 14 atmospheres.Following stent deployment, the lesion was dilated using a 3.50mmNC EUPHORA 15 MM balloon with a maximum inflation pressureof 12 atmospheres. The final outcome was defined as successful. There was no residual stenosis following this intervention. The finalTIMI flow was 3. Vascular Access: Vascular Access Angiogram: A selective angiogram at the right femoral artery revealed no significant obstructive disease. Vascular Access Management: A 6 Fr Perclose was deployed at the right femoral artery access site. This device was successful. Dual Antiplatelet (DAPT) Recommendations: Drug eluting stent (REBECCA) inserted. Patient was on chronic DAPT on arrival to the cardiac cath lab manager. Recommend continuing clopidogrel 75 mg PO daily for 12 months.Recommend continuing aspirin 81 mg unless intolerant. The DAPT score is 2. The DAPT score calculates net clinical benefitof prolonged dual antiplatelet therapy following percutaneous coronary intervention. A DAPT Score of equal or greater than 2 suggests an increased risk of late stent thrombosis and MACCE. If the DAPT scoreis equal or greater than 2 and the patient tolerates the recommended duration of DAPT without bleeding or side effects, considerextending the DAPT to 30 months post procedure. 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 Comments: Pt referred for diagnostic coronary and graft angiography for chestpain and positive biomarkers. Coronary angiography showed severe [id number]. DUVAL to LAD and SVG to OM1 are patent. SVG to RPDA has a severe in-stenotic lesion which was treated with repeat REBECCA PCI with goodresult and normal flow. Recommend optimal medical therapy for secondary prevention of CVD. The attending physician was present for the entire procedure. Dr. Oly Stroud M.D. was present during the moderate sedationintraservice time as documented by the sedation nurse. Case time = 01:00. Dr. Oly Stroud M.D. performed the coronary angiography, bypass graft study, stent insertion-bypass graft and access site angiography. Oly Stroud M.D. Electronically Signed by: Oly Stroud M.D. Report Finalized: 05/19/2017 16:16 Report Last Ammended: 11/01/2017 10:53 Oly Stroud MD CARDIAC CATH ORDERAB LES * (ABNORMAL) APTT (05/19/2017 10:51 AM EDT) Partial Thromboplastin Time 92(H) 25 - 35 sec [facility] Comment: The recommended therapeutic range for full dose, unfractionated heparin [place] [facility] is 80 ? 114 seconds. The use of the anti-Xa (heparin) level rather than the PTT is recommended for monitoring anticoagulation intensity in critically ill patients receiving unfractionated heparin by continuous IV infusion. Blood specimen (specimen) 05/19/2017 10:51 AM EDT 05/19/2017 11:08 AM EDT Narrative Resulting Agency Comment Spec In Lab Chris Quijano MD HEMATOLOGY ORDERAB LES Performing Organization Address City/State/[facility] Co de Phone Number [facility] [place] [address] * (ABNORMAL) Cardiac Enzymes (05/19/2017 10:51 AM EDT) Troponin-T 0.86(H) 0.00 - 0.00 ng/mL [facility] Comment: The 99th percentile for Troponin T is less than 0.01 ng/mL, any detectable cTnT concentration using this assay should be considered elevated. According to the third universal definition of myocardial infarction the following criteria with a clinical presentation consistent with acute myocardial ischemia meets the diagnosis for a myocardial infarction (VT). Detection of a rise and/or fall of cTnT, with at least one value greater than the 99th percentile (> or = 0.01) and with at least one of the following ?? Symptoms of ischemia ?? New or presumed new significant GK-nnejpsq-S wave (ST-T) changes or new left bundle branch block (LBBB) ?? Development of pathologic Q waves in the ECG ?? Imaging evidence of new loss of viable myocardium or new regional wall motion abnormality ?? Identification of an intracoronary thrombus by angiography or autopsy Samples for cTnT testing should be obtained serially upon first assessment and again 3 to 6 hours later. If the clinical suspicion is high and previous samples have been negative an additional sample may be indicated. Reference: Third [place] Definition of Myocardial Infarction. Journal of the [place] [employer] 2012;60:1581-98 Creatine Kinase 273(H) 0 - 200 unit/L [facility] Blood specimen (specimen) 05/19/2017 10:51 AM EDT 05/19/2017 11:09 AM EDT Narrative Resulting Agency Comment Spec In Lab Juan Jose Mills MD CHEMISTRY ORDERABLES [facility] [place] [address] * ECHO COMPLETE W CONTRAST (05/19/2017 8:34 AM EDT) EF 65 HEARTLAB SYSTEM Anatomical Region Laterality Modality Other 05/19/2017 Narrative 05/19/2017 10:26 AM EDT Procedure: ?Transthoracic Echocardiogram Patient: ?JOSRELIANE MARYRAFAEL J ?(Age): 1940(76y) Med Rec#: ? [id number] ?Sex: ?M ? [place] ? [facility] [place]Ht / Wt: ??173(cm)/99(kg) Pt. Loc: ?Adult Floor ? BSA: ?2.12 Study Date: ?? 05/19/2017 ?Pt. Type: Inpatient Tape: ? Referring: SELF Referring: Chris Quijano Reading: Jonathan Garnett ([id number]) Automotive Service Technician: [employer] [facility] Diagnosis: *ICD-10-PCS Chest pain, unspecified (R07.9) Indication: ?? Chest pain BP: ? 123/71 HR: ? 60 SUMMARY: 1. The left ventricular chamber size [...] size. 9. Please see full echo report. Findings ? : Left Ventricle: ? The left ventricular chamber size is normal. ?Mild concentric left ventricular hypertrophy is observed. ?Basal septal hypertrophy is observed. ?There is no evidence of LVOT obstruction. ?No ventricular septal defect is visualized. ?There is normal global left ventricular systolic function. ?The quantitative left ventricular ejection fraction by biplane Holder's method is 65%. ?There are no left ventricular segmental wall motion abnormalities. Left Atrium: ? The left atrium is mildly dilated. ?No atrial septal defect is visualized. Right Ventricle: ? Right ventricular chamber size, wall thickness, and systolic function are within normal limits. ?A pacemaker wire is visualized in the right ventricle. ?Pulmonary artery hypertension could not be assessed due to inadequate tricuspid regurgitation jet. Right Atrium: ? The right atrium appears normal. Aortic Valve: ? The prosthetic aortic valve was implanted on 01/03/2017. ?A bio-prosthetic aortic valve is present. ?The bio-prosthetic aortic valve appears well seated with normal function. ?There is no prosthetic aortic valve regurgitation present. Mitral Valve: ? The mitral valve appears normal in structure and function. ?There is trace mitral regurgitation present. Tricuspid Valve: ? The tricuspid valve appears normal in structure and function. ?There is trace tricuspid regurgitation present. Pulmonic Valve: ? The pulmonic valve appears normal in structure and function. Pericardium: ? The pericardium appears normal and there is no evidence of a pericardial effusion. Aorta: ? The aortic root is normal in size. ?The ascending aorta is normal in size. ?There is no evidence of coarctation of the aorta. Pulmonary Artery: ? The main pulmonary artery appears normal. Venous: ? The inferior vena cava appears dilated. ?There is less than 50% respiratory change in the inferior vena cava dimension consistent with elevated right atrial pressure. Misc: ? See remainder of report for additional findings. ?Two-dimensional echo, spectral Doppler and color Doppler performed. ?Optison contrast (one 3 ml vial) was used to enhance endocardial definition. Excess contrast was discarded. Chambers 2D ?Value ?Units (Range) ? IVSd (2D) ? 1.6 ?cm ? LVPWd (2D) ?1.5 ?cm ? IVS:LVPW ratio (2D) 1.1 ?ratio ? RWT (2D) ?0.6 ?ratio ? RWT PW (2D) ? 0.6 ?ratio ? LVIDd (2D) ?5.1 ?cm ? LVIDs (2D) ?3.4 ?cm ? LVIDd (2D) index ?2.4 ?cm/m2 ? LVIDs (2D) index ?1.6 ?cm/m2 ? LV FS (2D) ?32 ? % ? EF Teichholz (2D) ?? 60 ? % ? Ao root diameter (2D3.3 ?cm (2.1 - 3.6) ? Ascending Ao ?3.1 ?cm (2 - 3.5) ? Volumes/Mass ?Value ?Units (Range) ? LA Area 4 CH ?19 ? cm2 (<21) ? LA ESV BP (A/L) inde27.2 ? ml/m2 ? RA AREA 4CH ? 14 ? cm2 ? LA ESV BP (MOD) inde27 ? ml/m2 ? LV ESV SP 4CH (MOD) 18.7 ? ml ? LV ESV SP 2CH (MOD) 47 ? ml ? LV EDV BP ? 90.2 ? ml ? LV ESV BP ? 31.4 ? ml ? LV EDV BP index ? 42.6 ? ml/m2 ? LV ESV BP index ? 14.8 ? ml/m2 ? BP EF (MOD) ? 65 ? % ? LV mass (2D) ?354.1 ?g ? LV mass (2D) index ??167 ?g/m2 ? Diastolic/Systolic Function ?Value ?Units (Range) ? MV E-wave Vmax ?1.1 ?m/sec ? MV deceleration afqs885.1 ?msec ? MV A-wave Vmax ?1.1 ?m/sec ? MV E:A ratio ?1 ?ratio ? LV septal e' Vmax ?? 0.1 ?m/sec ? LV lateral e' Vmax ??0.1 ?m/sec ? LV average e' Vmax ??0.1 ?m/sec ? LV E:e' septal ratio17.8 ? ratio ? LV E:e' lateral rati15.2 ? ratio ? LV average E:e' rati17.8 ? ratio ? Aortic Valve ?Value ?Units (Range) ? AV Vmax ? 2.2 ?m/sec ? AV VTI ?50.2 ? cm ? AV peak gradient ?19 ? mmHg ? AV mean gradient ?10 ? mmHg ? LVOT Vmax ? 0.9 ?m/sec ? LVOT VTI ?23.5 ? cm ? LVOT peak gradient ??3.6 ?mmHg ? LVOT mean gradient ??1.8 ?mmHg ? DOI (VTI) ? 0.5 ?ratio ? DOI (Vmax) ?0.4 ?ratio ? Tricuspid Valve ?Value ?Units (Range) ? TAPSE ? 2 ?cm ? RV lateral s' Vmax ??0.1 ?m/sec ? Wall Motion: Segment Name ?Rest ? Base-Anteroseptal ?? Normal ? Base-Anterior ? Normal ? Base-Anterolateral ??Normal ? Base-Posterolateral Normal ? Base-Inferior ? Normal ? Base-Inferoseptal ?? Normal ? Mid-Anteroseptal ?Normal ? Mid-Anterior ?Normal ? Mid-Anterolateral ?? Normal ? Mid-Posterolateral ??Normal ? Mid-Inferior ?Normal ? Mid-Inferoseptal ?Normal ? [place]-Septal ? Normal ? [place]-Anterior ? Normal ? [place]-Lateral ?Normal ? [place]-Inferior ? Normal ? [place]-Tip ?Normal ? This report has been electronically signed by: Jonathan Garnett MD ? 05/19/2017 08:54:06 Images reviewed and interpretation verified [facility] Cardiac Ultrasound Laboratory Procedure Note Jonathan Garnett MD - 05/19/2017 Procedure: Transthoracic Echocardiogram Patient: JOSR GALVIN(Age): 1940(76y) Med Rec#: [id number] Sex: M [place] [facility] Ht / Wt: 173(cm)/99(kg) Pt. Loc: Adult Floor BSA: 2.12 Study Date: 05/19/2017 Pt. Type: Inpatient Tape: Referring: SELF Referring: Chris Quijano Reading: Jonathan Garnett ([id number]) Automotive Service Technician: Smith Sales RDCS Diagnosis: *ICD-10-PCS Chest pain, unspecified (R07.9) Indication: Chest pain BP: 123/71 HR: 60 SUMMARY: 1. The left ventricular chamber size [...] size. 9. Please see full echo report. Findings : Left Ventricle: The left ventricular chamber size is normal. Mild concentric left ventricular hypertrophy is observed. Basal septal hypertrophy is observed. There is no evidence of LVOT obstruction. No ventricular septal defect is visualized. There is normal global left ventricular systolic function. The quantitative left ventricular ejection fraction by biplane Holder's method is 65%. There are no left ventricular segmental wall motion abnormalities. Left Atrium: The left atrium is mildly dilated. No atrial septal defect is visualized. Right Ventricle: Right ventricular chamber size, wall thickness, and systolic function are within normal limits. A pacemaker wire is visualized in the right ventricle. Pulmonary artery hypertension could not be assessed due to inadequate tricuspid regurgitation jet. Right Atrium: The right atrium appears normal. Aortic Valve: The prosthetic aortic valve was implanted on 01/03/2017. A bio-prosthetic aortic valve is present. The bio-prosthetic aortic valve appears well seated with normal function. There is no prosthetic aortic valve regurgitation present. Mitral Valve: The mitral valve appears normal in structure and function. There is trace mitral regurgitation present. Tricuspid Valve: The tricuspid valve appears normal in structure and function. There is trace tricuspid regurgitation present. Pulmonic Valve: The pulmonic valve appears normal in structure and function. Pericardium: The pericardium appears normal and there is no evidence of a pericardial effusion. Aorta: The aortic root is normal in size. The ascending aorta is normal in size. There is no evidence of coarctation of the aorta. Pulmonary Artery: The main pulmonary artery appears normal. Venous: The inferior vena cava appears dilated. There is less than 50% respiratory change in the inferior vena cava dimension consistent with elevated right atrial pressure. Misc: See remainder of report for additional findings. Two-dimensional echo, spectral Doppler and color Doppler performed. Optison contrast (one 3 ml vial) was used to enhance endocardial definition. Excess contrast was discarded. Chambers 2D Value Units (Range) IVSd (2D) 1.6 cm LVPWd (2D) 1.5 cm IVS:LVPW ratio (2D) 1.1 ratio RWT (2D) 0.6 ratio RWT PW (2D) 0.6 ratio LVIDd (2D) 5.1 cm LVIDs (2D) 3.4 cm LVIDd (2D) index 2.4 cm/m2 LVIDs (2D) index 1.6 cm/m2 LV FS (2D) 32 % EF Teichholz (2D) 60 % Ao root diameter (2D3.3 cm (2.1 - 3.6) Ascending Ao 3.1 cm (2 - 3.5) Volumes/Mass Value Units (Range) LA Area 4 CH 19 cm2 (<21) LA ESV BP (A/L) inde27.2 ml/m2 RA AREA 4CH 14 cm2 LA ESV BP (MOD) inde27 ml/m2 LV ESV SP 4CH (MOD) 18.7 ml LV ESV SP 2CH (MOD) 47 ml LV EDV BP 90.2 ml LV ESV BP 31.4 ml LV EDV BP index 42.6 ml/m2 LV ESV BP index 14.8 ml/m2 BP EF (MOD) 65 % LV mass (2D) 354.1 g LV mass (2D) index 167 g/m2 Diastolic/Systolic Function Value Units (Range) MV E-wave Vmax 1.1 m/sec MV deceleration sryk960.1 msec MV A-wave Vmax 1.1 m/sec MV E:A ratio 1 ratio LV septal e' Vmax 0.1 m/sec LV lateral e' Vmax 0.1 m/sec LV average e' Vmax 0.1 m/sec LV E:e' septal ratio17.8 ratio LV E:e' lateral rati15.2 ratio LV average E:e' rati17.8 ratio Aortic Valve Value Units (Range) AV Vmax 2.2 m/sec AV VTI 50.2 cm AV peak gradient 19 mmHg AV mean gradient 10 mmHg LVOT Vmax 0.9 m/sec LVOT VTI 23.5 cm LVOT peak gradient 3.6 mmHg LVOT mean gradient 1.8 mmHg DOI (VTI) 0.5 ratio DOI (Vmax) 0.4 ratio Tricuspid Valve Value Units (Range) TAPSE 2 cm RV lateral s' Vmax 0.1 m/sec Wall Motion: Segment Name Rest Base-Anteroseptal Normal Base-Anterior Normal Base-Anterolateral Normal Base-Posterolateral Normal Base-Inferior Normal Base-Inferoseptal Normal Mid-Anteroseptal Normal Mid-Anterior Normal Mid-Anterolateral Normal Mid-Posterolateral Normal Mid-Inferior Normal Mid-Inferoseptal Normal [place]-Septal Normal [place]-Anterior Normal [place]-Lateral Normal [place]-Inferior Normal [place]-Tip Normal This report has been electronically signed by: Jonathan Garnett MD 05/19/2017 08:54:06 Images reviewed and interpretation verified [facility] Cardiac Ultrasound Laboratory Chris Quijano MD ECHO ORDERABLES * (ABNORMAL) APTT (05/19/2017 3:33 AM EDT) [facility] Partial Thromboplastin Time >160.0(Cr itical) 25 - 35 [facility] Comment: Called by: dianna, Read back by: sarah mena, Date/Time:05/19/17 04:46. The recommended therapeutic range for full dose, unfractionated heparin [place] [facility] [place] 80 ? 114 seconds. The use of the anti-Xa (heparin) level rather than the PTT is recommended for monitoring anticoagulation intensity in critically ill patients receiving unfractionated heparin by continuous IV infusion. Blood specimen (specimen) 05/19/2017 3:33 AM EDT 05/19/2017 3:58 AM EDT Narrative Resulting Agency Comment Spec In Lab Chris Quijano MD HEMATOLOGY ORDERAB LES [facility] [place] [address] * Differential, Automated (05/19/2017 3:33 AM EDT) [facility] Neutrophil % 69.9 % [facility] Neutrophil Absolute 4.15 1.70 - 6.10 x10(3)/[facility] LABORATORY Lymph % 18.5 % [facility] Lymphocytes Abs 1.1 0.9 - 3.2 x10(3)/[facility] LABORATORY Monocyte % 10.1 % [facility] Monocyte Abs 0.6 0.3 - 0.9 x10(3)/[facility] LABORATORY Eos % 1.0 % [facility] Eosinophils Abs 0.1 0.0 - 0.4 x10(3)/[facility]ORATORY Basophil % 0.3 % [facility] Baso Absolute 0.0 0.0 - 0.1 x10(3)/[facility]ATORY Immature Gran % 0.20 % [facility] Comment: Immature granulocytes(IG's)percentage and absolute count will include metamyelocytes, myelocytes, and promyelocytes. Blood smears from CBCs yielding IG's will be scanned manually for concordance. If this scan disagrees with the automated IG or if promyelocytes are noted, a manual differential will be performed. Immature Gran Absolute 0.01 0.00 - 0.04 x10(3)/mcL [facility] Blood specimen (specimen) 05/19/2017 3:33 AM EDT 05/19/2017 3:58 AM EDT Narrative Resulting Agency Comment Spec In Lab Chris Quijano MD HEMATOLOGY ORDERAB LES [facility] [place] [address] * (ABNORMAL) Hemogram (05/19/2017 3:33 AM EDT) White Blood Cell 5.9 4.0 - 9.5 x10(3)/mc L [facility] Red Blood Cell 4.41(L) 4.58 - 5.54 x10(6)/mc L [facility] Hemoglobin 14.2 13.7 - 16.5 gm/dL [facility] Hematocrit 42.5 40.5 - 48.5 % [facility] Mean Cell Volume 96.4(H) 82.9 - 93.1 [facility] Mean Cell Hemoglobin 32.2(H) 27.5 - 32.1 pg [facility] Mean Cell Hemoglobin Concentration 33.4 32.0 - 35.7 gm/dL [facility] Platelet 106(L) 145 - 357 x10(3)/mc L [facility] RDW Standard Deviation 46.6(H) 36.0 - 45.0 [facility] RDW coefficient of variation 13.0 11.4 - 13.8 % [facility] Mean Platelet Volume 9.2 7.6 - 12.9 [facility] NRBC% auto 0.0 % [facility] NRBC Absolute 0.000 0.000 - 0.000 x10(3)/mc L [facility] Blood specimen (specimen) 05/19/2017 3:33 AM EDT 05/19/2017 3:58 AM EDT Narrative Resulting Agency Comment Spec In Lab Chris Quijano MD HEMATOLOGY ORDERAB LES Performing Organization Address [facility] Co de Phone Number [facility] [place] [address] * Magnesium (05/19/2017 3:33 AM EDT) Magnesium 0.84 0.69 - 1.07 mmol/L [facility] Blood specimen (specimen) 05/19/2017 3:33 AM EDT 05/19/2017 3:58 AM EDT Narrative Resulting Agency Comment Spec In Lab Juan Jose Mills MD CHEMISTRY ORDERABLES Performing Organization Address [facility] de Phone Number [facility] [place] [address] * (ABNORMAL) BMP w/fasting Glucose (05/19/2017 3:33 AM EDT) Glucose Fasting 109(H) 65 - 99 mg/dL [facility] Comment: ?Fasting* Glucose Interpretive [...] of Diabetes Mellitus, Position Statement from the [place] [employer]. ??Diabetes Care, Volume 33, Supplement 1, Aug 2009 Blood Urea Nitrogen 13 10 - 20 mg/dL [facility] Creatinine 0.64(L) 0.80 - 1.50 mg/dL [facility] Comment: Please note that the pediatric reference intervals supplied above were not validated at [facility]. Results from pediatric patients should be interpreted in conjunction to the patient's age, height and muscle mass. Sodium 139 135 - 145 mmol/L [facility] Potassium 4.3 3.5 - 5.0 mmol/L [facility] Comment: Please note: ??Patients with WBC >100,000 may have falsely elevated Potassium levels. ??For accurate Potassium quantification in these patients send serum separator tube (gold top) for subsequent determinations. ??Contact the Clinical Chemistry Laboratory if there are any questions. Chloride 100 98 - 107 mmol/L [facility] Carbon Dioxide 29 22 - 31 mmol/L [facility] Anion Gap 10 5 - 15 mmol/L [facility] Calcium 8.7 8.5 - 10.5 mg/dL [facility] Est Glomerular Filtration Rate >60 >=60 [facility] Comment: This estimated GFR (eGFR) value was calculated using the MDRD equation which has been validated on patients between the ages of 18 and 70. The MDRD should not be used to assess kidney function in patients < 18 years of age or in patients with extremes of body mass, or in patients with acute kidney failure. This value should be multiplied by 1.2 for patients. For further information please copy and paste the following links into your internet browser. [email or web address] Blood specimen (specimen) 05/19/2017 3:33 AM EDT 05/19/2017 3:58 AM EDT Narrative Resulting Agency Comment Spec In Lab Juan Jose Mills MD CHEMISTRY ORDERABLES [facility] [place] [address] * (ABNORMAL) Cardiac Enzymes (05/19/2017 3:33 AM EDT) Troponin-T 1.02(H) 0.00 - 0.00 ng/mL [facility] Comment: result rechecked-afp The 99th percentile for Troponin T is less than 0.01 ng/mL, any detectable cTnT concentration using this assay should be considered elevated. According to the third universal definition of myocardial infarction the following criteria with a clinical presentation consistent with acute myocardial ischemia meets the diagnosis for a myocardial infarction (VT). Detection of a rise and/or fall of cTnT, with at least one value greater than the 99th percentile (> or = 0.01) and with at least one of the following ?? Symptoms of ischemia ?? New or presumed new significant JH-dqfyalu-C wave (ST-T) changes or new left bundle branch block (LBBB) ?? Development of pathologic Q waves in the ECG ?? Imaging evidence of new loss of viable myocardium or new regional wall motion abnormality ?? Identification of an intracoronary thrombus by angiography or autopsy Samples for cTnT testing should be obtained serially upon first assessment and again 3 to 6 hours later. If the clinical suspicion is high and previous samples have been negative an additional sample may be indicated. Reference: Third [place] Definition of Myocardial Infarction. Journal of the [place] [employer] 2012;60:1581-98 Creatine Kinase 397(H) 0 - 200 unit/L [facility] Blood specimen (specimen) 05/19/2017 3:33 AM EDT 05/19/2017 3:58 AM EDT Narrative Resulting Agency Comment Spec In Lab Juan Jose Mills MD CHEMISTRY ORDERABLES [facility] [place] [address] * (ABNORMAL) Cardiac Enzymes (05/18/2017 9:10 PM EDT) Troponin-T 1.83(H) 0.00 - 0.00 ng/mL [facility] Comment: result rechecked-afp The 99th percentile for Troponin T is less than 0.01 ng/mL, any detectable cTnT concentration using this assay should be considered elevated. According to the third universal definition of myocardial infarction the following criteria with a clinical presentation consistent with acute myocardial ischemia meets the diagnosis for a myocardial infarction (VT). Detection of a rise and/or fall of cTnT, with at least one value greater than the 99th percentile (> or = 0.01) and with at least one of the following ?? Symptoms of ischemia ?? New or presumed new significant JU-hurnwuo-F wave (ST-T) changes or new left bundle branch block (LBBB) ?? Development of pathologic Q waves in the ECG ?? Imaging evidence of new loss of viable myocardium or new regional wall motion abnormality ?? Identification of an intracoronary thrombus by angiography or autopsy Samples for cTnT testing should be obtained serially upon first assessment and again 3 to 6 hours later. If the clinical suspicion is high and previous samples have been negative an additional sample may be indicated. Reference: Third [place] Definition of Myocardial Infarction. Journal of the [place] [employer] 2012;60:1581-98 Creatine Kinase 629(H) 0 - 200 unit/L [facility] Blood specimen (specimen) 05/18/2017 9:10 PM EDT 05/18/2017 9:19 PM EDT Narrative Resulting Agency Comment Spec In Lab Juan Jose Mills MD CHEMISTRY ORDERABLES Performing Organization Address [facility] Co de Phone Number [facility] [place] [address] * (ABNORMAL) APTT (05/18/2017 7:45 PM EDT) [facility] Signature Partial Thromboplastin Time 115(H) 25 - 35 sec [facility] Comment: The recommended therapeutic range for full dose, unfractionated heparin at [facility] is 80 ? 114 seconds. The use of the anti-Xa (heparin) level rather than the PTT is recommended for monitoring anticoagulation intensity in critically ill patients receiving unfractionated heparin by continuous IV infusion. Blood specimen (specimen) 05/18/2017 7:45 PM EDT 05/18/2017 7:52 PM EDT Narrative Resulting Agency Comment Spec In Lab Juan Jose Mills MD HEMATOLOGY ORDERABLE S Performing Organization Address City/[facility]/ZIP Co de Phone Number [facility] [place] [address] * XR Chest PA & Lateral (Generic) (05/18/2017 1:04 PM EDT) Anatomical Region Laterality Modality Chest N/A Digital Radiogra phy Impressions 05/18/2017 1:07 PM EDT Low lung volumes with subsegmental atelectasis. Narrative 05/18/2017 1:07 PM EDT EXAMINATION: XR CHEST PA AND LATERAL (GENERIC) [...] Cardiac silhouette normal limits. Tortuous thoracic aorta. Procedure Note Kian Washington MD - 05/18/2017 EXAMINATION: XR CHEST PA AND LATERAL (GENERIC) CLINICAL HISTORY: jaw pain, chest pain TECHNIQUE: AP and lateral sitting semiupright chest radiograph; 2 views COMPARISON: None FINDINGS: Left anterior chest wall pulse generator leads terminate in the regions ofthe atrium and right ventricle. No focal kink or discontinuity. Surgical clipsare seen throughout the mediastinum. Additional hardware is seen within theright lateral aspects of the C6 and C7 vertebra. Low lung volumes. Linear subsegmental atelectasis. Prominence of thepulmonary vasculature favored to be related to technique and degree of lunginflation. No focal consolidation, pneumothorax or pleural effusion. Cardiac silhouettenormal limits. Tortuous thoracic aorta. IMPRESSION Low lung volumes with subsegmental atelectasis. Chris Quijano MD IMG DX ORDERABLES * EKG 12 Lead (05/18/2017 12:52 PM EDT) Ventricular rate 67 BPM MUSE SYSTEM Atrial Rate 67 BPM MUSE SYSTEM P-R Interval 210 ms MUSE SYSTEM QRS Duration 88 ms MUSE SYSTEM Q-T Interval 416 ms MUSE SYSTEM QTC Calculated (Bezet) 439 ms MUSE SYSTEM Calculated P [place] 46 degrees MUSE SYSTEM Calculated R [place] -7 degrees MUSE SYSTEM Calculated T [place] 81 degrees MUSE SYSTEM INTERPRETATION Sinus rhythm with 1st degree A-V block Anteroseptal infarct (cited on or before 18-MAY-2017) Abnormal ECG When compared with ECG of 18-MAY-2017 11:02, (unconfirmed) No significant change was found Confirmed by MD Kg, Shakir Adams ([id number]) on 05/19/2017 8:03:10 AM MUSE SYSTEM 05/18/2017 12:5 2 PM EDT 05/19/2017 8:03 AM EDT Chris Quijano MD ECG ORDERABLES MUSE SYSTEM * Differential, Automated (05/18/2017 12:51 PM EDT) Neutrophil % 66.4 % [facility] Neutrophil Absolute 3.33 1.70 - 6.10 x10(3)/[facility] LAB[facility]AT[facility] Lymph % 20.6 % [facility] Lymphocytes Abs 1.0 0.9 - 3.2 x10(3)/[facility] Monocyte % 11.2 % [facility] Monocyte Abs 0.6 0.3 - 0.9 x10(3)/[facility] Eos % 1.0 % [facility] Eosinophils Abs 0.0 0.0 - 0.4 x10(3)/[facility] Basophil % 0.6 % [facility] Baso Absolute 0.0 0.0 - 0.1 x10(3)/[facility] Immature Gran % 0.20 % [facility] Comment: Immature granulocytes(IG's)percentage and absolute count will include metamyelocytes, myelocytes, and promyelocytes. Blood smears from CBCs yielding IG's will be scanned manually for concordance. If this scan disagrees with the automated IG or if promyelocytes are noted, a manual differential will be performed. Immature Gran Absolute 0.01 0.00 - 0.04 x10(3)/[facility] Blood specimen (specimen) 05/18/2017 12:51 PM EDT 05/18/2017 12:54 PM EDT Narrative Resulting Agency Comment Spec In Lab Chris Quijano MD HEMATOLOGY ORDERAB LES [facility] [place] [address] * (ABNORMAL) Hemogram (05/18/2017 12:51 PM EDT) White Blood Cell 5.0 4.0 - 9.5 x10(3)/[facility] LABORATORY Red Blood Cell 4.29(L) 4.58 - 5.54 x10(6)/[facility]ORY Hemoglobin 14.2 13.7 - 16.5 gm/dL [facility] Hematocrit 41.8 40.5 - 48.5 % [facility] Mean Cell Volume 97.4(H) 82.9 - 93.1 [facility] Mean Cell Hemoglobin 33.1(H) 27.5 - 32.1 pg [facility] Mean Cell Hemoglobin Concentration 34.0 32.0 - 35.7 gm/dL [facility] Platelet 108(L) 145 - 357 x10(3)/[facility]ATORY RDW Standard Deviation 47.5(H) 36.0 - 45.0 [facility] RDW coefficient of variation 13.2 11.4 - 13.8 % [facility] Mean Platelet Volume 9.0 7.6 - 12.9 [facility] NRBC% auto 0.0 % [facility] NRBC Absolute 0.000 0.000 - 0.000 x10(3)/[facility] Blood specimen (specimen) 05/18/2017 12:51 PM EDT 05/18/2017 12:54 PM EDT Narrative Resulting Agency Comment Spec In Lab Chris Quijano MD HEMATOLOGY ORDERAB LES Performing Organization Address [facility]/ZIP Co de Phone Number [facility] [place] [address] * APTT (05/18/2017 12:51 PM EDT) Partial Thromboplastin Time 33 25 - 35 sec [facility] Comment: The recommended therapeutic range for full dose, unfractionated heparin at [facility] is 80 ? 114 seconds. The use of the anti-Xa (heparin) level rather than the PTT is recommended for monitoring anticoagulation intensity in critically ill patients receiving unfractionated heparin by continuous IV infusion. Blood specimen (specimen) 05/18/2017 12:51 PM EDT 05/18/2017 12:54 PM EDT Narrative Resulting Agency Comment Spec In Lab Chris Quijano MD HEMATOLOGY ORDERAB LES Performing Organization Address [facility] Co de Phone Number [facility] [place] [address] * Differential, Automated (05/18/2017 11:48 AM EDT) [facility] Neutrophil % 65.2 % [facility] Neutrophil Absolute 3.47 1.70 - 6.10 x10(3)/[facility] Lymph % 21.8 % [facility] Lymphocytes Abs 1.2 0.9 - 3.2 x10(3)/[facility] Monocyte % 11.3 % [facility] Monocyte Abs 0.6 0.3 - 0.9 x10(3)/[facility] Eos % 1.1 % [facility] Eosinophils Abs 0.1 0.0 - 0.4 x10(3)/[facility] Basophil % 0.4 % [facility] Baso Absolute 0.0 0.0 - 0.1 x10(3)/[facility] Immature Gran % 0.20 % [facility] Comment: Immature granulocytes(IG's)percentage and absolute count will include metamyelocytes, myelocytes, and promyelocytes. Blood smears from CBCs yielding IG's will be scanned manually for concordance. If this scan disagrees with the automated IG or if promyelocytes are noted, a manual differential will be performed. Immature Gran Absolute 0.01 0.00 - 0.04 x10(3)/mcL [facility] Blood specimen (specimen) 05/18/2017 11:48 AM EDT 05/18/2017 11:53 AM EDT Narrative Resulting Agency Comment Spec In Lab Chris Quijano MD HEMATOLOGY ORDERAB LES [facility] [place] [address] * (ABNORMAL) Hemogram (05/18/2017 11:48 AM EDT) White Blood Cell 5.3 4.0 - 9.5 x10(3)/mc L [facility] Red Blood Cell 4.50(L) 4.58 - 5.54 x10(6)/mc L [facility] Hemoglobin 14.6 13.7 - 16.5 gm/dL [facility] Hematocrit 43.5 40.5 - 48.5 % [facility] Mean Cell Volume 96.7(H) 82.9 - 93.1 fL [facility] Mean Cell Hemoglobin 32.4(H) 27.5 - 32.1 pg [facility] Mean Cell Hemoglobin Concentration 33.6 32.0 - 35.7 gm/dL [facility] Platelet 121(L) 145 - 357 x10(3)/mc L [facility] RDW Standard Deviation 47.2(H) 36.0 - 45.0 [facility] RDW coefficient of variation 13.2 11.4 - 13.8 % [facility] Mean Platelet Volume 9.1 7.6 - 12.9 [facility] NRBC% auto 0.0 % [facility] NRBC Absolute 0.000 0.000 - 0.000 x10(3)/mc L [facility] Blood specimen (specimen) 05/18/2017 11:48 AM EDT 05/18/2017 11:53 AM EDT Narrative Resulting Agency Comment Spec In Lab Chris Quijano MD HEMATOLOGY ORDERAB LES Performing Organization Address [facility] Co de Phone Number [facility] [place] [address] * EKG 12 Lead (05/18/2017 11:02 AM EDT) Ventricular rate 64 BPM MUSE SYSTEM Atrial Rate 64 BPM MUSE SYSTEM P-R Interval 198 ms MUSE SYSTEM QRS Duration 96 ms MUSE SYSTEM Q-T Interval 412 ms MUSE SYSTEM QTC Calculated (Bezet) 425 ms MUSE SYSTEM Calculated P [place] 50 degrees MUSE SYSTEM Calculated R [place] -10 degrees MUSE SYSTEM Calculated T [place] 97 degrees MUSE SYSTEM INTERPRETATION Normal sinus rhythm Low voltage QRS Cannot rule out Anteroseptal infarct , age undetermined Abnormal ECG No previous ECGs available Confirmed by MD Bharath, Gabriel Stallworth ([id number]) on 05/18/2017 8:36:47 PM MUSE SYSTEM 05/18/2017 11:0 2 AM EDT 05/18/2017 8:36 PM EDT Chris Quijano MD ECG ORDERABLES Performing Organization Address [facility] de Phone Number MUSE SYSTEM * pro-Brain Natriuretic Peptide (05/18/2017 10:45 AM EDT) NT-proBNP 384 <=450 pg/mL [facility] Blood specimen (specimen) Venous Draw / Unknown 05/18/2017 10:45 AM EDT 05/18/2017 11:12 AM EDT Narrative Resulting Agency Comment Spec In Lab Chris Quijano MD CHEMISTRY ORDERABL ES Performing Organization Address [facility] Co de Phone Number [facility] [place] [address] * APTT (05/18/2017 10:45 AM EDT) Partial Thromboplastin Time Disregard 25 - 35 [facility] Comment: The recommended therapeutic range for full dose, unfractionated heparin at [facility] is 80 ? 114 seconds. The use of the anti-Xa (heparin) level rather than the PTT is recommended for monitoring anticoagulation intensity in critically ill patients receiving unfractionated heparin by continuous IV infusion. Corrected from 23 sec [LOW] on 05/18/17 12:06 by Meche Shaw Blood specimen (specimen) Venous Draw / Unknown 05/18/2017 10:45 AM EDT 05/18/2017 11:00 AM EDT Narrative Resulting Agency Comment Spec In Lab Chris Quijano MD HEMATOLOGY ORDERAB LES Performing Organization Address [facility]/ZIP Co de Phone Number [facility] [place] [address] * Gold Tube HOLD (05/18/2017 10:45 AM EDT) Gold Hold Sample in lab. [facility] Blood specimen (specimen) Venous Draw / Unknown 05/18/2017 10:45 AM EDT 05/18/2017 11:02 AM EDT Chris Quijano MD CHEMISTRY ORDERABL ES Performing Organization Address [facility]/ZIP Co de Phone Number [facility] [place] [address] * Prothrombin Time (05/18/2017 10:45 AM EDT) Prothrombin Time Disregard 12.0 - 15.0 [facility] Comment: An INR <2.0 indicates adequate procoagulant activity for hemostasis in most patients without underlying bleeding disorders, though the INR may not adequately reflect hemostatic capacity in patients with liver disease and synthetic impairment. The recommended target INR range for therapeutic anticoagulation is 2.0 ? 3.0 for most applications, though lower and higher ranges may be appropriate depending on clinical circumstances. Specimen clotted. ??Called to ED 10/08/17 12:05 LTS. An INR <2.0 indicates adequate procoagulant activity for hemostasis in most patients without underlying bleeding disorders, though the INR may not adequately reflect hemostatic capacity in patients with liver disease and synthetic impairment. The recommended target INR range for therapeutic anticoagulation is 2.0 ? 3.0 for most applications, though lower and higher ranges may be appropriate depending on clinical circumstances. Corrected from 13.5 sec on 05/18/17 12:06 by Meche Shaw International Normalization Ratio Disregard 0.9 - 1.1 [facility] Comment:Corrected from 1.0 o n 05/18/17 12:06 by Meche Shaw Blood specimen (specimen) 05/18/2017 10:45 AM EDT 05/18/2017 11:00 AM EDT Narrative Resulting Agency Comment Spec In Lab Chris Quijano MD HEMATOLOGY ORDERAB LES [facility] [place] [address] * Basic Metabolic Panel (non-fasting) (05/18/2017 10:45 AM EDT) Glucose 139 65 - 199 mg/dL [facility] Comment:Diabetes: >=200 mg/d L plus symptoms Blood Urea Nitrogen 17 10 - 20 mg/dL [facility] Creatinine 0.84 0.80 - 1.50 mg/dL [facility] Comment: Please note that the pediatric reference intervals supplied above were [place] [facility] [place] Results from pediatric patients should be interpreted in conjunction to the patient's age, height and muscle mass. Sodium 141 135 - 145 mmol/L [facility] Potassium 4.9 3.5 - 5.0 mmol/L [facility] Comment: Please note: ??Patients with WBC >100,000 may have falsely elevated Potassium levels. ??For accurate Potassium quantification in these patients send serum separator tube (gold top) for subsequent determinations. ??Contact the Clinical Chemistry Laboratory if there are any questions. Chloride 101 98 - 107 mmol/L [facility] Carbon Dioxide 28 22 - 31 mmol/L [facility] Anion Gap 12 5 - 15 mmol/L [facility] Calcium 9.3 8.5 - 10.5 mg/dL [facility] Est Glomerular Filtration Rate >60 >=60 [facility] Comment: This estimated GFR (eGFR) value was calculated using the MDRD equation which has been validated on patients between the ages of 18 and 70. The MDRD should not be used to assess kidney function in patients < 18 years of age or in patients with extremes of body mass, or in patients with acute kidney failure. This value should be multiplied by 1.2 for patients. For further information please copy and paste the following links into your internet browser. [email or web address] Blood specimen (specimen) 05/18/2017 10:45 AM EDT 05/18/2017 11:00 AM EDT Narrative Resulting Agency Comment Spec In Lab Chris Quijano MD CHEMISTRY ORDERABL ES [facility] [place] [address] * (ABNORMAL) Troponin T (05/18/2017 10:45 AM EDT) Troponin-T 0.67(H) 0.00 - 0.00 ng/mL [facility] Comment: Called by: VERONIKA, Read back by: Yusra Grant, Date/Time:05/18/17 11:41. The 99th percentile for Troponin T is less than 0.01 ng/mL, any detectable cTnT concentration using this assay should be considered elevated. According to the third universal definition of myocardial infarction the following criteria with a clinical presentation consistent with acute myocardial ischemia meets the diagnosis for a myocardial infarction (VT). Detection of a rise and/or fall of cTnT, with at least one value greater than the 99th percentile (> or = 0.01) and with at least one of the following ?? Symptoms of ischemia ?? New or presumed new significant WQ-vlampbe-E wave (ST-T) changes or new left bundle branch block (LBBB) ?? Development of pathologic Q waves in the ECG ?? Imaging evidence of new loss of viable myocardium or new regional wall motion abnormality ?? Identification of an intracoronary thrombus by angiography or autopsy Samples for cTnT testing should be obtained serially upon first assessment and again 3 to 6 hours later. If the clinical suspicion is high and previous samples have been negative an additional sample may be indicated. Reference: Third [place] Definition of Myocardial Infarction. Journal of the [employer] [employer] 2012;60:1581-98 Blood specimen (specimen) 05/18/2017 10:45 AM EDT 05/18/2017 11:00 AM EDT Narrative Resulting Agency Comment Spec In Lab Chris Quijano MD CHEMISTRY ORDERABL ES [facility] [place] [address] * SCAN DOC: [employer] (05/18/2017 12:00 AM EDT) Anatomical Region Laterality Modality Other Narrative 05/18/2017 12:00 AM EDT Ordered by an unspecified provider. Scanning Provider MEDIA MGR SCAN EXT O RDR/RSLT documented in this encounter Visit Diagnoses Not on filedocumented in this encounter Admitting Diagnoses Diagnosis NSTEMI (non-ST elevated myocardial infarction) Acute myocardial infarction, subendocardial infarction, episode of care unspecified documented in this encounter Administered Medications Inactive Administered Medications - up to 3 most recent administrations Medication Order MAR Action Action Date Dose Rate Site acetaminophen (TYLENOL) tablet 650 mg 650 mg, Oral, EVERY 4 HOURS PRN, Starting on 05/18/17 at 1331, Until Fri05/20/17 at 2006, Pain, Headaches, Maximum dose of acetaminophen is 4000 mg from all sources in 24 hours., Routine aspirin chewable tablet 81 mg 81 mg, Oral, DAILY, First dose (after last modification) on Fri05/20/17 at 0900, Until Discontinued, Unless allergic or given ASSISTANT PRODUCTION MANAGER. If partial dose administered ASSISTANT PRODUCTION MANAGER administer remaining MG for a total dose of 325 mg/day., Routine Given 05/20/2017 9:17 AM EDT 81 mg atorvastatin (LIPITOR) tablet 40 mg 40 mg, Oral, EVERY EVENING, First dose on Fri05/18/17 at 1700, Until Discontinued, Routine Given 05/20/2017 5:27 PM EDT 40 mg Given 05/19/2017 5:53 PM EDT 40 mg Given 05/18/2017 4:12 PM EDT 40 mg clopidogrel (PLAVIX) tablet 75 mg 75 mg, Oral, DAILY, First dose on Fri05/18/17 at 1503, Until Discontinued, Routine Given 05/20/2017 9:14 AM EDT 75 mg Given 05/19/2017 8:48 AM EDT 75 mg fentaNYL 50 mcg/mL multi-dose injection ONCE PRN, Starting on Fri05/19/17 at 1459, Until Fri05/19/17 at 1608, Cath (Intra-Procedure), Routine Given 05/19/2017 3:51 PM EDT 25 mcg Given 05/19/2017 2:59 PM EDT 25 mcg heparin (porcine) injection ONCE PRN, Starting on Fri05/19/17 at 1508, Until Fri05/19/17 at 1608, Cath (Intra-Procedure), Routine Given 05/19/2017 3:33 PM EDT 2,000 Units Given 05/19/2017 3:08 PM EDT 2,000 Units iohexol (OMNIPAQUE) 350 mg/mL solution ONCE PRN, Starting on Fri05/19/17 at 1606, Until Fri05/19/17 at 1608, Cath (Intra-Procedure), Routine Given 05/19/2017 4:06 PM EDT 142 mLs ipratropium-albuterol (DUONEB) 0.5 mg-3 mg(2.5 mg base)/3 mL nebulizer solution 3 mL 3 mL, Nebulization, EVERY 4 HOURS PRN, Starting on Fri05/18/17 at 1458, Until Fri05/20/17 at 2006, Wheezing, Routine lidocaine (XYLOCAINE) 10 mg/mL (1 %) injection 3 mg 3 mg (0.3 mL), Subcutaneous, ONCE PRN, 1 dose, Starting on Fri05/18/17 at 1330, Until Fri05/20/17 at 2006, for discomfort with PIV insertion, Routine lidocaine (XYLOCAINE) 10 mg/mL (1 %) injection ONCE PRN, Starting on Fri05/19/17 at 1503, Until Fri05/19/17 at 1608, Cath (Intra-Procedure), Routine Given 05/19/2017 3:03 PM EDT 100 mg Right Lower Quadrant lisinopril (PRINIVIL;ZESTRIL) tablet 5 mg 5 mg, Oral, DAILY, First dose on 05/18/17 at 1630, Until Discontinued, Routine Given 05/20/2017 9:15 AM EDT 5 mg Given 05/19/2017 8:48 AM EDT 5 mg Given 05/18/2017 5:17 PM EDT 5 mg meTOPROLOL tartrate (LOPRESSOR) tablet 25 mg 25 mg, Oral, EVERY 6 HOURS SCHEDULED, First dose (after last modification) on 05/18/17 at 1530, Until Discontinued, Please hold for SBP < 90 mmHg and HR < 60 BPM, Routine Given 05/20/2017 5:27 PM EDT 25 mg Given 05/20/2017 12:29 PM EDT 25 mg Given 05/19/2017 5:53 PM EDT 25 mg midazolam (PF) (VERSED) 1 mg/mL multi-dose injection ONCE PRN, Starting on Fri05/19/17 at 1458, Until Fri05/19/17 at 1608, Cath (Intra-Procedure), Routine Given 05/19/2017 2:58 PM EDT 1 mg niCARdipine (CARDENE) in sodium chloride 0.9% injection ONCE PRN, Starting on Fri05/19/17 at 1548, Until Fri05/19/17 at 1608, Intra-Operative (Intra-Procedure), Routine Given 05/19/2017 4:01 PM EDT 200 mcg Given 05/19/2017 3:59 PM EDT 200 mcg Given 05/19/2017 3:57 PM EDT 200 mcg nitroGLYcerin (NITROSTAT) SL tablet 0.4 mg 0.4 mg, Sublingual, EVERY 5 MIN PRN, Starting on Fri05/19/17 at 1623, Until Fri05/20/17 at 2006, Chest pain, May repeat every 5 minutes for a total of three doses. Notify provider if chest pain not relieved with nitroglycerin. Do not administer nitroglycerin if the patinet has received or taken phosphodiesterase (PDE-5) inhibitors such as sildenafil, tadalafil or vardenafil within the last 24 to 72 hours., Recovery (Recovery-Hospital Unit), Routine sodium chloride 0.9 % flush 5 mL 5 mL, Intravenous, 2 TIMES DAILY, First dose on Fri05/18/17 at 1334, Until Discontinued, Routine Given 05/19/2017 9:32 PM EDT 5 mLs Given 05/19/2017 8:49 AM EDT 5 mLs sodium chloride 0.9 % flush 5-20 mL 5-20 mL, Intravenous, EVERY 1 MIN PRN, Starting on Fri05/18/17 at 1330, Until Fri05/20/17 at 2006, flush, Flush pertains to all indwelling lines. Flush per protocol found in the job aid using the link provided on this medication record., Routine documented in this encounter Active and Recently Administered Medications Times are shown in EDT. Scheduled Medication Order 05/18/2017 05/19/2017 05/20/2017 aspirin chewable tablet 243 mg (CANCELED) 243 mg, Oral, DAILY, First dose on Fri05/18/17 at 1044, Until Discontinued, Unless allergic or given ASSISTANT PRODUCTION MANAGER. If partial dose administered ASSISTANT PRODUCTION MANAGER administer remaining MG for a total dose of 325 mg/day., STAT 1043 (Given - Provider: Yusra Grant RN) 0848 (Given - Provider: Luann Black RN) aspirin chewable tablet 81 mg 81 mg, Oral, DAILY, First dose (after last modification) on Fri05/20/17 at 0900, Until Discontinued, Unless allergic or given ASSISTANT PRODUCTION MANAGER. If partial dose administered ASSISTANT PRODUCTION MANAGER administer remaining MG for a total dose of 325 mg/day., Routine 1439 ([facility] Hold - Provider: Admin Adt - Reason: Transfer to a Procedural area)1531 ([facility] Unhold - Provider: Admin Adt)1543 ([facility] Hold - Provider: Admin Adt - Reason: Transfer to a Procedural area)1731 ([facility] [place] Unhold - Provider: Admin Adt) 0917 (Given - Provider: Jani Colindres RN) atorvastatin (LIPITOR) tablet 40 mg 40 mg, Oral, EVERY EVENING, First dose on Fri05/18/17 at 1700, Until Discontinued, Routine 1612 (Given - Provider: Luann Black RN) 1439 ([facility] Hold - Provider: Admin Adt - Reason: Transfer to a Procedural area)1531 ([facility] [place] Unhold - Provider: Admin Adt)1543 ([facility] Hold - Provider: Admin Adt - Reason: Transfer to a Procedural area)1700 (Automatically Held - Provider: Admin Adt)1731 ([facility] [place] Unhold - Provider: Admin Adt)1753 (Given - Provider: Luann Black RN) 1727 (Given - Provider: Jani Colindres, MONTSE) clopidogrel (PLAVIX) tablet 75 mg 75 mg, Oral, DAILY, First dose on 05/18/17 at 1503, Until Discontinued, Routine 1503 (Not Given - Provider: Luann Black RN - Reason: See comment - Comment: pt took this AM already) 0848 (Given - Provider: Luann Black RN)1439 ([facility] Hold - Provider: Admin Adt - Reason: Transfer to a Procedural area)1531 ([facility] Unhold - Provider: Admin Adt)1543 ([facility] Hold - Provider: Admin Adt - Reason: Transfer to a Procedural area)1731 ([facility] [place] Unhold - Provider: Admin Adt) 0914 (Given - Provider: Jani Colindres, MONTSE) lisinopril (PRINIVIL;ZESTRIL) tablet 5 mg 5 mg, Oral, DAILY, First dose on 05/18/17 at 1630, Until Discontinued, Routine 1717 (Given - Provider: Luann Black RN) 0848 (Given - Provider: Luann Black RN)1439 ([facility] Hold - Provider: Admin Adt - Reason: Transfer to a Procedural area)1531 ([facility] [place] Unhold - Provider: Admin Adt)1543 ([facility] Hold - Provider: Admin Adt - Reason: Transfer to a Procedural area)1731 ([facility] [place] Unhold - Provider: Admin Adt) 0915 (Given - Provider: Jani Colindres, MONTSE) magnesium sulfate 2 g in sterile water 50 mL (COMPLETED) 2 g, Intravenous, ONCE, 1 dose, On Fri05/19/17 at 1115, Administer over 120 Minutes 1155 (New Bag - Provider: Luann Black RN)1355 (Stopped - Provider: Jani Harden RN) magnesium sulfate 2 g in sterile water 50 mL (COMPLETED) 2 g, Intravenous, ONCE, 1 dose, On Fri05/20/17 at 0800, Administer over 120 Minutes 0803 (New Bag - Provider: Jani Colindres, MONTSE)0830 (Paused - Provider: Jani Colindres, MONTSE - Comment: c/o burning in arm, IV stopped)0906 (Restarted - Provider: Jani Colindres RN - Comment: IV team assessed site and moved IV to new site)1050 (Stopped - Provider: Jani Colindres RN) meTOPROLOL tartrate (LOPRESSOR) tablet 25 mg 25 mg, Oral, EVERY 6 HOURS SCHEDULED, First dose (after last modification) on 05/18/17 at 1530, Until Discontinued, Please hold for SBP < 90 mmHg and HR < 60 BPM, Routine 1611 (Given - Provider: Luann Black RN)2357 (Given - Provider: Kary Love RN) 0652 (Given - Provider: Kary Love RN)1157 (Given - Provider: Luann Black RN)1439 ([facility] Hold - Provider: Admin Adt - Reason: Transfer to a Procedural area)1531 ([facility] Unhold - Provider: Admin Adt)1543 ([facility] Hold - Provider: Admin Adt - Reason: Transfer to a Procedural area)1731 ([facility] Unhold - Provider: Admin Adt)1753 (Given - Provider: Luann Black RN) 0000 (Not Given - Provider: Kary Love RN - Reason: Order parameters not met)0600 (Not Given - Provider: Kary Love RN - Reason: Order parameters not met)1229 (Given - Provider: Jani Colindres RN)1727 (Given - Provider: Jani Colindres RN) perflutren protein-A microspheres (OPTISON) 0.22 mg/mL injection 3 mL (COMPLETED) 3 mL, Intravenous, ONCE, 1 dose, On 05/19/17 at 0900, Routine 0830 (Given - Provider: Smith Sales) sodium chloride 0.9 % flush 5 mL 5 mL, Intravenous, 2 TIMES DAILY, First dose on 05/18/17 at 1334, Until Discontinued, Routine 1334 (Not Given - Provider: Luann Black RN - Reason: See comment - Comment: infusing)2115 (Not Given - Provider: Kary Love RN - Reason: See comment - Comment: heparin infusing) 0849 (Given - Provider: Luann Black RN)1439 ([facility] Hold - Provider: Admin Adt - Reason: Transfer to a Procedural area)1531 ([facility] Unhold - Provider: Admin Adt)1543 ([facility] Hold - Provider: Admin Adt - Reason: Transfer to a Procedural area)1731 ([facility] Unhold - Provider: Admin Adt)2132 (Given - Provider: Kary Loev RN) 0900 (Not Given - Provider: Jani Colindres RN - Reason: See comment - Comment: administered by IV team) Continuous Medication Order 05/18/2017 05/19/2017 05/20/2017 heparin 25,000 units in dextrose 5% 500 mL infusion (CANCELED)(Linked Group 1) 0-5,000 Units/hr (0-100 mL/hr), Intravenous, CONTINUOUS, Starting on 05/18/17 at 1225, Until 05/19/17 at 1942, Begin infusion at 1,500 units per hr (15 units/kg/hr). MAX INITIAL infusion rate is 1,750 units/hr Target aPTT = 80 - 114 seconds Start adjustment schedule 6 hours after starting infusion. If aPTT is: - Less than 60 seconds, administer PRN bolus and increase rate by 400 units per hr (4 units/kg/hr) - 60-79 seconds, administer PRN bolus AND increase rate by 200 units per hr (2 units/kg/hr) - 80-114 seconds, no change - 115-129 seconds, decrease rate by 100 units per hr (1 unit/kg/hr) - 130-145 seconds, stop infusion for 30 minutes then decrease rate by 200 units per hr (2 units/kg/hr) - Greater than 145 seconds, stop infusion for 60 minutes then decrease rate by 300 units per hour (3 units/kg/hr) Repeat aPTT 6 hours after initiating heparin. Then 6 hours after each dose adjustment. When 2 consecutive aPTT within target range of 80 - 114 seconds, change aPTT to once every 24 hours with A.M. labs while on heparin. RN to order required aPTT - Per Protocol, Routine, Indication: ACS (STEMI vs NSTEMI vs UA) 1243 (New Bag - Provider: Yusra Grant RN)2018 (Paused - Provider: Kary Love RN - Comment: loss of access)2120 (Restarted - Provider: Kary Love RN)2200 (Rate/Dose Verify - Provider: Kary Love RN) 0000 (Rate/Dose Verify - Provider: Kary Love RN)0200 (Rate/Dose Verify - Provider: Kary Love RN)0400 (Rate/Dose Verify - Provider: Kary Love RN)0500 (Paused - Provider: Kary Love RN)0600 (Rate/Dose Change - Provider: Kary Love RN)0700 (Rate/Dose Verify - Provider: Kary Love RN)0850 (New Bag - Provider: Luann Black RN)1406 (Paused - Provider: Jani Harden RN)1439 ([facility] Hold - Provider: Admin Adt - Reason: Transfer to a Procedural area)1531 ([facility] Unhold - Provider: Admin Adt)1543 ([facility] Hold - Provider: Admin Adt - Reason: Transfer to a Procedural area)1731 ([facility] Unhold - Provider: Admin Adt) sodium chloride 0.9% infusion () 100 mL/hr, Intravenous, CONTINUOUS, Starting on 05/19/17 at 1645, Until Fri05/19/17 at 2144, Recovery (Recovery-Hospital Unit) 1635 (New Bag - Provider: Tamar Rutledge, MONTSE)2135 (Stopped - Provider: Kary Love RN) PRN Medication Order 05/18/2017 05/19/2017 05/20/2017 acetaminophen (TYLENOL) tablet 650 mg 650 mg, Oral, EVERY 4 HOURS PRN, Starting on 05/18/17 at 1331, Until 05/20/17 at 2006, Pain, Headaches, Maximum dose of acetaminophen is 4000 mg from all sources in 24 hours., Routine 1439 ([facility] Hold - Provider: Admin Adt - Reason: Transfer to a Procedural area)1531 ([facility] Unhold - Provider: Admin Adt)1543 ([facility] Hold - Provider: Admin Adt - Reason: Transfer to a Procedural area)1731 ([facility] [place] Unhold - Provider: Admin Adt) fentaNYL (PF) 50 mcg/mL 2mL syringe (CANCELED) 25 mcg, Intravenous, EVERY 30 MIN PRN, Pain, sheath removal, Starting on Fri05/19/17 at 1623, 4 doses, Until Fri05/19/17 at 1731, May repeat once while in Cath Recovery Unit, Cath (Recovery-Hospital Unit) 1631 (Given - Provider: Olena Ortiz RN - Comment: given per ) fentaNYL 50 mcg/mL multi-dose injection (CANCELED) ONCE PRN, Starting on Fri05/19/17 at 1459, Until Fri05/19/17 at 1608, Cath (Intra-Procedure), Routine 1459 (Given - Provider: Jani Otto, MONTSE)1551 (Given - Provider: Tashia Brown, MONTSE) heparin (porcine) injection (CANCELED) ONCE PRN, Starting on Fri05/19/17 at 1508, Until Fri05/19/17 at 1608, Cath (Intra-Procedure), Routine 1508 (Given - Provider: Tashia Brown RN)1533 (Given - Provider: Jani Otto RN) iohexol (OMNIPAQUE) 350 mg/mL solution (CANCELED) ONCE PRN, Starting on Fri05/19/17 at 1606, Until Fri05/19/17 at 1608, Cath (Intra-Procedure), Routine 1606 (Given - Provider: Oly Stroud MD) ipratropium-albuterol (DUONEB) 0.5 mg-3 mg(2.5 mg base)/3 mL nebulizer solution 3 mL 3 mL, Nebulization, EVERY 4 HOURS PRN, Starting on Fri05/18/17 at 1458, Until Fri05/20/17 at 2006, Wheezing, Routine 1439 ([facility] Hold - Provider: Admin Adt - Reason: Transfer to a Procedural area)1531 ([facility] Unhold - Provider: Admin Adt)1543 ([facility] [place] Hold - Provider: Admin Adt - Reason: Transfer to a Procedural area)1731 ([facility] [place] Unhold - Provider: Admin Adt) lidocaine (XYLOCAINE) 10 mg/mL (1 %) injection 3 mg 3 mg (0.3 mL), Subcutaneous, ONCE PRN, 1 dose, Starting on Fri05/18/17 at 1330, Until Fri05/20/17 at 2005, for discomfort with PIV insertion, Routine 1439 ([facility] Hold - Provider: Admin Adt - Reason: Transfer to a Procedural area)1531 ([facility] [place] Unhold - Provider: Admin Adt)1543 ([facility] [place] Hold - Provider: Admin Adt - Reason: Transfer to a Procedural area)1731 ([facility] [place] Unhold - Provider: Admin Adt) lidocaine (XYLOCAINE) 10 mg/mL (1 %) injection (CANCELED) ONCE PRN, Starting on Fri05/19/17 at 1503, Until Fri05/19/17 at 1608, Cath (Intra-Procedure), Routine 1503 (Given - Provider: Daniele Patel MD) midazolam (PF) (VERSED) 1 mg/mL multi-dose injection (CANCELED) ONCE PRN, Starting on Fri05/19/17 at 1458, Until Fri05/19/17 at 1608, Cath (Intra-Procedure), Routine 1458 (Given - Provider: Jani Otto RN) niCARdipine (CARDENE) in sodium chloride 0.9% injection (CANCELED) ONCE PRN, Starting on Fri05/19/17 at 1548, Until Fri05/19/17 at 1608, Intra-Operative (Intra-Procedure), Routine 1548 (Given - Provider: Oly Stroud MD)1550 (Given - Provider: Oly Stroud MD)1552 (Given - Provider: Oly Stroud MD)1556 (Given - Provider: Oly Stroud MD)1557 (Given - Provider: Oly Stroud MD)1559 (Given - Provider: Oly Stroud MD)1601 (Given - Provider: Oly Stroud MD) nitroGLYcerin (NITROSTAT) SL tablet 0.4 mg (CANCELED) 0.4 mg, Sublingual, EVERY 5 MIN PRN, 3 doses, Starting on Fri05/18/17 at 1057, Until Fri05/19/17 at 1618, Chest pain, SL nitroglycerin may be repeated every 5 minutes as needed up to 3 doses, STAT 1103 (Given - Provider: Yusra Grant, MONTSE) 1439 ([facility] Hold - Provider: Admin Adt - Reason: Transfer to a Procedural area)1531 ([facility] [place] Unhold - Provider: Admin Adt)1543 ([facility] Hold - Provider: Admin Adt - Reason: Transfer to a Procedural area)1618 ([facility] Unhold - Provider: Admin Adt) nitroGLYcerin (NITROSTAT) SL tablet 0.4 mg 0.4 mg, Sublingual, EVERY 5 MIN PRN, Starting on Fri05/19/17 at 1623, Until Fri05/20/17 at 2006, Chest pain, May repeat every 5 minutes for a total of three doses. Notify provider if chest pain not relieved with nitroglycerin. Do not administer nitroglycerin if the patinet has received or taken phosphodiesterase (PDE-5) inhibitors such as sildenafil, tadalafil or vardenafil within the last 24 to 72 hours., Recovery (Recovery-Hospital Unit), Routine sodium chloride 0.9 % flush 5-20 mL 5-20 mL, Intravenous, EVERY 1 MIN PRN, Starting on Fri05/18/17 at 1330, Until Fri05/20/17 at 2006, flush, Flush pertains to all indwelling lines. Flush per protocol found in the job aid using the link provided on this medication record., Routine 1439 ([facility] Hold - Provider: Admin Adt - Reason: Transfer to a Procedural area)1531 ([facility] [place] Unhold - Provider: Admin Adt)1543 ([facility] Hold - Provider: Admin Adt - Reason: Transfer to a Procedural area)1731 ([facility] [place] Unhold - Provider: Admin Adt) Linked Groups Order Group 1: heparin (porcine) injection 0-8,000 Units (CANCELED) 0-8,000 Units, Intravenous, BOLUS PER HEPARIN PROTOCOL, Starting on Fri05/18/17 at 1223, Until Fri05/19/17 at 1942, Per Protocol, START ADJUSTMENT SCHEDULE 6 HOURS AFTER STARTING INFUSION aPTT Between 60 - 79 seconds: Bolus 3,500 units aPTT Less than 60 seconds: Bolus 7,000 units Increase infusion and recheck aPTT in 6 hours. , Routine And heparin 25,000 units in dextrose 5% 500 mL infusion (CANCELED)Jump to med 0-5,000 Units/hr (0-100 mL/hr), Intravenous, CONTINUOUS, Starting on Fri05/18/17 at 1225, Until Fri05/19/17 at 1942, Begin infusion at 1,500 units per hr (15 units/kg/hr). MAX INITIAL infusion rate is 1,750 units/hr Target aPTT = 80 - 114 seconds Start adjustment schedule 6 hours after starting infusion. If aPTT is: - Less than 60 seconds, administer PRN bolus and increase rate by 400 units per hr (4 units/kg/hr) - 60-79 seconds, administer PRN bolus AND increase rate by 200 units per hr (2 units/kg/hr) - 80-114 seconds, no change - 115-129 seconds, decrease rate by 100 units per hr (1 unit/kg/hr) - 130-145 seconds, stop infusion for 30 minutes then decrease rate by 200 units per hr (2 units/kg/hr) - Greater than 145 seconds, stop infusion for 60 minutes then decrease rate by 300 units per hour (3 units/kg/hr) Repeat aPTT 6 hours after initiating heparin. Then 6 hours after each dose adjustment. When 2 consecutive aPTT within target range of 80 - 114 seconds, change aPTT to once every 24 hours with A.M. labs while on heparin. RN to order required aPTT - Per Protocol, Routine, Indication: ACS (STEMI vs NSTEMI vs UA) documented in this encounter Care Teams Bowling Alley Attendant Relationship Specialty Start Date End Date None None PCP - General 05/18/17 05/29/17 documented as of this encounter
--- OUTSIDE RECORDS SUMMARY | 2024-06-16 15:35 | XMS_ITS | Encounter Summary ---
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 Name Role Phone None Primary Care Provider Unavailabl e Reason for Visit * Reason Comments Jaw Pain Chest Pain * Auth/Cert Specialty Diagnoses / Procedures Referred By Charito t Referred To Contact Diagnoses Non-ST elevation myocardial infarction (NSTEMI) NSTEMI (non-ST elevated myocardial infarction) CAD Procedures CARDIAC CATHETERIZATION Referral ID Status Reason Start Date Expiration Date Visits Re quested Visits Authorized [id number] 1 1 Encounter Details Date Type Department Care Team (Latest Contact Info) Description 05/18/2017 10:39 AM EDT - 05/20/2017 6:06 PM EDT Hospital Encounter [place] [phone] Chris Quijano MD [facility] [place] [address] Juan Jose Mills MD [facility] [place] [address] Non-ST elevation myocardial infarction (NSTEMI); NSTEMI (non-ST elevated myocardial infarction) Discharge Disposition: Home Social History Tobacco Use [...] EDT Cardiology - Discharge Summary Patient Name: Vikash Álvarez Patient Age: 76 y.o. Birthdate: 1940 Admit date: 05/18/2017 Discharge date and time: 05/20/2017 Attending Physician: Juan Jose Mills MD Follow-up Recommendations for Providers: ?? Cardiology follow up - To be scheduled with Dr. Mills ?? PCP to be arranged by patient through [facility]. Discharge Diagnoses (Hospital Problems) and Secondary Diagnoses [...] substernal chest pain consistent with his prior GA. He awoke at 01:00 on 05/18 and experienced jaw pain similar to the pain e xperienced previously with GA in 1994. The pain was achy/dull in [...] TAVR (01/03) and pacemaker placement. Cardiology at [facility] in [facility]. Most recently he had a catheterization in 2017 at [facility] in [facility], those records are attempting to be obtained. 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 Important Studies and Lab Data: Admission Labs: Discharge Labs: Recent Labs 05/20/17 04305/19/17 0333 05/18/17 1251 05/18/17 1148 WBC 5.6 5.9 5.0 5.3 HGB 14.2 14.2 14.2 14.6 PLATELET 116* 106* 108* 121* Recent Labs 05/20/17 0439 05/19/17 0333 05/18/17 1045 NA 140 139 141 K 4.5 4.3 4.9 CL 100 100 101 CO2 30 29 28 BUN 17 13 17 CREATININE 1.01 0.64* 0.84 GLUCOSE -- -- 139 Recent Labs 05/20/17 0439 05/19/17 0333 05/18/17 [...] the procedure was Urgent. The NCDR indication for the procedure was PCI for [...] on chronic DAPT [facility]. ? Recommend continuing clopidogrel 75 mg PO [...] and positive biomarkers. Coronary angiography showed severe chickaloon 3VD. DUVAL to LAD and SVG to [...] 2:20 PM Alfonzo Sam MD Cardiology at [place] [phone] Future Orders Complete By Expires Full code [...] please contact your inpatient physician through the [facility] . Issues afterhours and on weekends will be handled by the Hospitalist staff on-call. Signed: Bradly Espinoza MD PGY-1 Cardiology Team S2 05/20/2017 documented in this encounter Discharge Instructions * Patient Instructions* Bradly Espinoza - 05/20/2017 3:42 PM EDT PATIENT INSTRUCTIONS [...] please contact your inpatient physician through the [facility] . Issues afterhours and on weekends will be handled by the Hospitalist staff on-call. * Attachments The following attachments cannot be sent through Care Everywhere. * HEART ATTACK: MEDICINE TO REDUCE RISK (SAUDI ARABIAN) * HEART ATTACK: MYOCARDIAL INFARCTION OR ACUTE CORONARY SYNDROME (SAUDI ARABIAN) documented in this encounter Medications at Time [...] of this encounter Progress Notes * Nurys Guerrero, MONTSE - 05/20/2017 3:10 PM EDT Cardiac rehab [...] primary team in the outpatient setting. * Juan Jose Mills MD - 05/20/2017 6:23 AM [...] ??? meTOPROLOL tartrate 25 mg Oral Q6H AILCIA ??? atorvastatin 40 mg Oral QPM ??? [...] sinus rhythm at 67, first-degree heart block CO interval is 210, no significant ST elevations [...] Dr. Lina Espinoza MD, PGY-1 Team Pager [phone] Cardiology Attending Note I interviewed and examined [...] with multiple complex problems. * Chris Bashir Emma - 05/19/2017 10:15 PM EDT Post-Catheterization Check S: Patient resting comfortably, mild discomfort at cath site. Notes no bleeding. Denies chest pain,palpitations, or SOB. O: Most Recent Vitals: 05/19/172042 BP: 109/43 Pulse: 67 Resp: 23 Temp: 36.7 ??C (98.1 ??F) SpO2: 98% Gen: resting comfortably Ext: R groin catheterization site C/D/I, no active bleeding. No hematoma palpated, min TTP. No bruit appreciated. Distal pulses 2+, brisk capillary refill. A/P: Patient stable following cardiac cath. No apparent complications. Will continue to monitor. 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 He and his family are Christians, very open to rn community health visit and support. Assessment: He was in company of his waiting for his procedure when rn community health stopped by. A bit agitated yet with [...] sinus rhythm at 67, first-degree heart block CO interval is 210, no significant ST elevations [...] Dr. Lina Espinoza MD, PGY-1 Team Pager [phone] Cardiology Attending Note I interviewed and examined [...] I noted yesterday, he has seen a matrix plater and tried a variety of inhalers which [...] PM EDT Cardiology Admission Note Patient Name: Vikash Álvarez Service: Medicine Responsible Attending: Juan Jose [...] pain and chest pain consistent with prior GA. HPI: This is a 76-year-old gentleman with past medical history of COPD, hyperlipidemia, hypertension andsignificant cardiac history who presents to the emergency room with jaw and substernal chest pain consistent with his prior GA. He awoke at 01:00 on 05/18 and experienced jaw pain similar to the pain e xperienced previously with GA in 1994. The pain was achy/dull in [...] TAVR (01/03) and pacemaker placement. Cardiology at [facility] in [facility]. Most recently he had a catheterization in 2017 at [facility], those records are attempting to be obtained. [...] sinus rhythm at 67, first-degree heart block CO interval is 210, no significant ST elevations [...] Dr. Lina Espinoza MD, PGY-1 Team Pager [phone] Cardiology Attending Note I interviewed and examined [...] his CABG. He recalls being told at [facility] in [place], [place] that 1 of his bypass grafts [...] records of his diagnostic cath done in [place]. I think it is worthwhile crossing the valve and identifying it LVEDP because of his dyspnea. However he sees a matrix plater and tells me he has had pulmonary [...] documented in this encounter ED Notes * Grant, Yusra M, RN - 05/18/2017 2:21 PM EDT Report [...] AM EDT Brief Attending Note: I saw Vikash Álvarez in conjunction with Dr. Silverman. Please see their note for further details. Briefly, 76 y.o. male presents with jaw pain and digestion. The patient has a history of a myocardial infarction with a CABGx4 performed in [place] at [facility] in 1994. Reports the jaw [...] past medical history, medications, and allergies in Epic. On exam the patient resting comfortably in no acute distress. Heart rate is regular, lungs clear, no loud murmur, obese but soft abdomen, extremities are warm and dry. He is alert, fluent speech and no focal neurologic deficits. We obtained an EKG that showed a normal sinus rhythm at 64 with normal axis and Q-wave in lead III. I reviewed the records from [facility]: ?? Pacer placed for high degree AVB s/p TAVR. ?? BSC/ Accolade MRI [id number] ?? DDD 60-130 ?? TTE 01/01/17: Mildly [...] A, MD 05/18/17 1243 * Luca Silverman - 05/18/2017 10:50 AM EDT ED NOTE Vikash Álvarez is an 76 y.o. male who presents to the ED with: Chief Complaint Patient presents with ??? Jaw Pain ??? Chest Pain I saw this patient 05/18/2017 at ~ 10:50 AM HPI Vikash Álvarez is a 76 y.o. male with PMH significant for CABG x 4 in the mid in [place], stent placed to graft in 2014, recent [...] established care with a PCP or manager business banking in the area. He has been seen recently at [facility] and had a pacemaker placed for [...] cough, fevers, chills, sweats. Pacemaker:BSC/ Accolade MRI [id number]; DDD 60-130 Review of Symptoms: General: No [...] Cardiology consulted and agreed to admission MDM: Vikash Álvarez is a 76 y.o. male who [...] sent and his records were obtained from [facility]. He had arecent TTE which showed [...] - 05/20/2017 7:12 AM EDT Cardiology S2 (3251) Progress Note Patient info: Name: Vikash Álvarez : 1940 PCP: None PCP phone number: None Date of Admission: 05/18/2017 ( Hospital Day 2 days ) Responsible Attending:Juan Jose Mills MD ID: Vikash Álvarez is a 76 y.o. male w/ PMH significant for hyperlipidemia, hypertension, CABG x 4??in the mid s in [place], stent placed to graft in 2014, recent [...] Intake/Output Summary (Last 24 hours) at 05/20/17 0984 Last data filed at 05/20/17 0920 Gross per 24 hour Intake 1840 ml [...] NEUTROABS 4.03 4.15 3.33 Chemistry: Recent Labs 05/20/1743805/19/17 03305/18/17 1045 NA 140 139 141 K 4.5 4.3 4.9 CL 100 100 101 CO2 30 29 28 BUN 17 13 17 CREATININE 1.01 0.64* 0.84 GLUCOSE -- -- 139 ANIONGAP 10 10 12 Recent Labs 05/20/1743805/19/17 03305/18/17 1045 CALCIUM 8.7 8.7 9.3 MAGNESIUM 0.95 [...] in the last 7068 hours. Invalid input(s): [id number] Heme: No results for input(s): LDH, HAPTOGLOBIN, URICACID in the last 168 hours. ABG: ABG (Arterial Blood Gas) No results found for: PHART, PO2ART, MBH7RWF, NOG2TAW Pertinent radiology/diagnostic studies: XR Chest 05/18/2017 IMPRESSION [...] on or before 18-MAY-2017) Abnormal ECG SUMMARY Vikash Álvarez is a 76 y.o. male w/ PMH of hyperlipidemia, hypertension, significant for CABG x 4??in the mid in [place], stent placed to graft in 2014, recent TAVR??and pacemaker placement for complete heart block in December of this year, and COPD on home oxygen at night on HD# 1 admitted for NSTEMI. This patient had chest/jaw pain, positive troponins, and an ECG without ST segment changes, consistent with NSTEMI. JULIO score 6 (age, GA history, >3 risk factors, aspirin use, +troponins), meaning there is 26% risk at 14 days of all cause mortality, new or recurrent GA, or severe ischemia requiring urgent revascularization. Echo [...] Code Wilfrid Alex, MS3 05/20/2017 Cardiology S2 #5389 * Plan of Care - Kary Love [...] Office of Care Management Initial Assessment Carmen Hughes??MONTSE reviewed record and discussed patient with Care [...] has ADs that are on file at [facility] Current Coping/Education/Information Needs: No needs at this time Current Functional Ability: assist Functional Status Prior to Admission: independent Home Environment: Patient recently moved to [place], [place] and lives in a single story [...] Health/Prescription Coverage: Primary Insurance: MEDICARE Secondary Insurance: [facility] Prescription Coverage: BC/BS Preferred Pharmacy: [facility] Other: NA Primary Care Provider: None None Patient/Caregiver Goals of Treatment: to go home Potential Needs for Transition of Care: Rehab/SNF: NA Home Health: [facility] DME: NA Dialysis: NA Community Resources: NA Transportation: family Other: NA Anticipated Barriers to Discharge/Special Considerations: none Plan: patient will likely benefit from VNA services, follow up after procedure is needed to confirmthis. A member of the Care Management team will continue to monitor progress, follow for continuity of care and assist with transition of care planning. Carmen Burgos RN Pager: [phone] * Plan of Care - Luann Black RN - 05/19/2017 3:34 PM EDT Problem: Patient Care Overview Goal: Plan of Care Review Outcome: Ongoing (Interventions Implemented as Appropriate) 05/19/17 0459 05/19/17 0817 Plan of Care Review Progress progress toward functional goals as expected -- Coping/Psychosocial Plan Of Care Reviewed With -- patient OUTCOME EVALUATION NOTE: OUTCOME SUMMARY: Ram[facility] this [facility], 1 REBECCA placed to SVG [...] Student Progress Note - Wilfrid Alex - 05/19/2017 7:10 AM EDT Cardiology S2 (7299) Progress Note Patient info: Name: Vikash Álvarez : 1940 PCP: None PCP phone number: None Date of Admission: 05/18/2017 ( Hospital Day 1 day ) Responsible Attending:Juan Jose Mills MD ID: Vikash Álvarez is a 76 y.o. male w/ PMH significant for hyperlipidemia, hypertension, CABG x 4 in the mid in [place], stent placed to graft in 2014, recent [...] L/min Intake/Output Summary (Last 24 hours) at 05/19/17957 Last data filed at 05/19/17 09 Gross per 24 hour Intake 975 ml [...] in the last 7068 hours. Invalid input(s): [id number] Heme: No results for input(s): LDH, HAPTOGLOBIN, URICACID in the last 168 hours. ABG: ABG (Arterial Blood Gas) No results found for: PHART, PO2ART, RLE5GKV, OEZ5YBN Pertinent radiology/diagnostic studies: XR Chest 05/18/2017 IMPRESSION [...] indicate angiography report of coronary arteries. ASSESSMENT/PLAN: Vikash Álvarez is a 76 y.o. male w/ PMH of hyperlipidemia, hypertension, significant for CABG x 4in the mid in [place], stent placed to graft in 2014, recent TAVR and pacemaker placement for complete heart block in December of this year, and COPD on home oxygen at night on HD# 1 admitted for NSTEMI. #NSTEMI This patient has chest/jaw pain, positive troponins (1.02 this morning), and an ECG without ST segment changes, consistent with NSTEMI. JULIO score 6 (age, GA history, >3 risk factors, aspirin use,+troponins), meaning there is 26% risk at 14 days of all cause mortality, new or recurrent GA, or severe ischemia requiring urgent revascularization. Echo [...] As tolerated CODE STATUS: Full Code Wilfrid Alex MS3 05/19/2017 Cardiology S2 #3349 * Plan of Care - Kary Love RN - 05/19/2017 4:59 AM EDT Problem: Patient Care Overview Goal: Plan of Care Review Outcome: Ongoing (Interventions Implemented as Appropriate) 05/19/17 1513 Plan of Care Review Progress progress toward [...] in visiting and patient singing along with ziyad. PLAN MOVING FORWARD: NPO at midnight for [...] AM EST Hospital Encounter [place] [phone] Arrived documented as of this [...] myocardial infarction (NSTEMI) CARDIAC CATHETERIZATION Routine 05/19/20 3:15 PM EDT CARDIAC ENZYMES ([facility]) Routine 05/19/2017 10:51 AM EDT APTT STAT 05/19/2017 10:51 AM EDT ECHO COMPLETE W CONTRAST Routine 05/19/2017 8:34 AM EDT NSTEMI (non-ST elevated myocardial infarction) BMP W/FASTING GLUCOSE Routine 05/19/2017 3:33 AM EDT HEMOGRAM STAT 05/19/2017 3:33 AM EDT DIFFERENTIAL, AUTOMATED STAT 05/19/20 3:33 AM EDT CARDIAC ENZYMES ([facility]) Routine 05/19/2017 3:33 AM EDT APTT STAT 05/19/2017 3:33 AM EDT CBC (WITH DIFF) STAT 05/19/2017 3:33 AM EDT MAGNESIUM Routine 05/19/2017 3:33 AM EDT CARDIAC ENZYMES ([facility]) Routine 05/18/2017 9:10 PM EDT APTT STAT [...] 11:48 AM EDT DIFFERENTIAL, AUTOMATED STAT 05/18/20 11:48 AM EDT CBC (WITH DIFF) STAT 05/18/2017 11:48 AM EDT EKG 12-LEAD STAT 05/18/2017 11:02 AM EDT GOLD TUBE HOLD STAT 05/18/2017 10:45 AM EDT APTT STAT 05/18/2017 10:45 AM EDT PROTHROMBIN TIME STAT 05/18/2017 10:4 5 AM EDT TROPONIN STAT 05/18/2017 10:45 AM EDT PRO-BRAIN NATRIURETIC PEPTIDE STAT 05/18/2017 10:45 AM EDT BASIC METABOLIC PANEL STAT 05/18/2017 10:45 AM EDT AUTOMATIC DOOR MECHANIC SCAN 05/18/2017 12:00 AM EDT documented in this encounter Results * (ABNORMAL) Differential, Automated (05/20/2017 4:39 AM EDT) Neutrophil % 71.8 % [facility] Neutrophil Absolute 4.03 1.70 - 6.10 x10(3)/mc L [facility] Lymph % 14.6 % [facility] Lymphocytes Abs 0.8(L) 0.9 - 3.2 x10(3)/mc L [facility] Monocyte % 11.8 % [facility] Monocyte Abs 0.7 0.3 - 0.9 x10(3)/mc L [facility] Eos % 1.4 % [facility] Eosinophils Abs 0.1 0.0 - 0.4 x10(3)/[facility] Basophil % 0.2 % [facility] Baso Absolute 0.0 0.0 - 0.1 x10(3)/[facility] Immature Gran % 0.20 % [facility] Comment: Immature granulocytes(IG's)percentage and absolute count will include metamyelocytes, myelocytes, and promyelocytes. Blood smears from CBCs yielding IG's will be scanned manually for concordance. If this scan disagrees with the automated IG or if promyelocytes are noted, a manual differential will be performed. Immature Gran Absolute 0.01 0.00 - 0.04 x10(3)/[facility] Blood specimen (specimen) 05/20/2017 4:39 AM EDT 05/20/2017 5:13 AM EDT Narrative Resulting Agency Comment Spec In Lab Juan Jose Mills MD HEMATOLOGY ORDERABLE S [facility] [place] [address] * (ABNORMAL) Hemogram (05/20/2017 4:39 AM EDT) White Blood Cell 5.6 4.0 - 9.5 x10(3)/ L [facility] Red Blood Cell 4.40(L) 4.58 - 5.54 x10(6)/ L [facility] Hemoglobin 14.2 [...] of variation 13.2 11.4 - 13.8 % [facility] Mean Platelet Volume 9.3 7.6 - 12.9 [facility] NRBC% auto 0.0 % [facility] NRBC Absolute 0.000 0.000 - 0.000 x10(3)/mc L [facility] Blood specimen (specimen) 05/20/2017 4:39 AM EDT 05/20/2017 5:13 AM EDT Narrative Resulting Agency Comment Spec In Lab Juan Jose Mills MD HEMATOLOGY ORDERABLE S Performing Organization Address [facility] Co de Phone Number [facility] [place] [address] * Magnesium (05/20/2017 4:39 AM EDT) Magnesium 0.95 0.69 - 1.07 mmol/L [facility] Blood specimen (specimen) 05/20/2017 4:39 AM EDT 05/20/2017 5:13 AM EDT Narrative Resulting Agency Comment Spec In Lab Juan Jose Mills MD CHEMISTRY ORDERABLES Performing Organization Address [facility] de Phone Number [facility] [place] [address] * BMP w/fasting Glucose (05/20/2017 4:39 AM [...] of Diabetes Mellitus, Position Statement from the [employer]. ??Diabetes Care, Volume 33, Supplement 1, Aug 2009 Blood Urea Nitrogen 17 10 - 20 mg/dL [facility] Creatinine 1.01 0.80 - 1.50 mg/dL [facility] Comment: Please note that the pediatric reference intervals supplied above were not validated at [facility]. Results from pediatric patients should be interpreted [...] LABORATORY Est Glomerular Filtration Rate >60 >=60 [facility] Comment: This estimated GFR (eGFR) [...] the following links into your internet browser. [email or web address] Blood specimen (specimen) 05/20/2017 4:39 AM EDT 05/20/2017 5:13 AM EDT Narrative Resulting Agency Comment Spec In Lab Juan Jose Mills MD CHEMISTRY ORDERABLES Performing Organization Address [facility] Co de Phone Number [facility] [place] [address] * EKG 12 Lead (05/19/2017 4:34 PM EDT) Ventricular rate 65 BPM MUSE SYSTEM Atrial Rate 65 BPM MUSE SYSTEM P-R Interval 206 ms MUSE SYSTEM QRS Duration 86 ms MUSE SYSTEM Q-T Interval 436 ms MUSE SYSTEM QTC Calculated (Bezet) 453 ms MUSE SYSTEM Calculated P [place] 57 degrees MUSE SYSTEM Calculated R [place] -5 degrees MUSE SYSTEM Calculated T [place] 100 degrees MUSE SYSTEM INTERPRETATION Normal sinus rhythm Septal infarct (cited on or before 18-MAY-2017 ) Abnormal ECG When compared with ECG of 18-MAY-2017 12:52, CO interval is slightly shorter Confirmed by MD Kg, Shakir Adams ([id number]) on 05/19/2017 5:36:21 PM MUSE SYSTEM 05/19/2017 4:34 PM EDT 05/19/2017 5:36 PM EDT Juan Jose Mills MD ECG ORDERABLES Performing Organization Address [facility] Co de Phone Number MUSE SYSTEM * CARDIAC CATHETERIZATION (05/19/2017 3:15 PM EDT) Anatomical Region Laterality Modality Other Narrative 05/19/2017 4:23 PM EDT ?[facility] ? Cardiac Catheterization/Intervention Report ? Patient Name: Lance Álvarezdrerin Mariano. ? Procedure Date: 05/19/2017 ? A #: [id number] ? Primary Physician: Ahmed, Oly ? Case #: [id number] ? File Name: [id number] ? Catheterization Order Number: [id number] ? [facility] ? Final Report [place], [place] ? Patient Name: ? Vikash J. Max ?ID#: ?[id number] ? : ?1940 ? Procedure Date: ? May 19, 2017 ?Case #: ? [id number] ? Room: ? 5 ? Case Physician: ? Oly Stroud M.D. ? Start: ?15:03 ?Fellow: ? Daniele Patel M.D. ? Admission: ??05/18/2017 ? Discharge: ??05/20/2017 ? Procedures: ?* Coronary Angiography ?* Bypass Graft Study ?* Bypass Graft Stent Insertion ?* Access Site Angiography ? History ?Vikash Álvarez is a 76 year old man. [...] patient presented with: non-STEMI (w/i 7 days). [place] ?Cardiovascular Society angina class was IV. This [...] on chronic DAPT [facility]. ?Recommend continuing clopidogrel 75 mg PO daily [...] ?and positive biomarkers. ??Coronary angiography showed severe chickaloon 3VD. ?DUVAL to LAD and SVG to [...] graft and access site angiography. ? Oly Stroud, M.D. ? Electronically Signed by: Oly Stroud, M.D. ? Report Finalized: 05/19/2017 ??16:16 ? Report Last Ammended: 11/01/2017 ??10:53 ? Procedure Note Oly Stroud MD - 11/01/2017 [facility] Cardiac Catheterization/Intervention Report Patient Name: Vikash Álvarez Procedure Date: 05/19/2017 A #: [id number] Primary Physician: Oly Stroud Case #: [id number] File Name: [id number] Catheterization Order Number: [id number] [facility] FinalReport [place], [place] Patient Name: Vikash Álvarez ID#:[id number] :1940 Procedure Date: May 19, 2017 Case #: [id number] Room: 5 Case Physician: Oly Stroud M.D. Start: 15:03 Fellow: Daniele Patel M.D. Admission:05/18/2017 Discharge:05/20/2017 Procedures: * Coronary Angiography * Bypass Graft Study * Bypass Graft Stent Insertion * Access Site Angiography History Vikash Álvarez is a 76 year old man. [...] patient presented with: non-STEMI (w/i 7 days). [place] Cardiovascular Society angina class was IV. This [...] time was 18.0 minutes, dose area product [id number] mGYcm2 and air kerma was 1,835 mGY. [...] treated with PCI in 2014. There is severein-stent restenosis in the stented [...] on chronic DAPT [facility]. Recommend continuing clopidogrel 75 mg PO daily [...] and positive biomarkers. Coronary angiography showed severe [id number]. DUVAL to LAD and SVG to OM1 [...] * (ABNORMAL) APTT (05/19/2017 10:51 AM EDT) [facility] Signature Partial Thromboplastin Time 92(H) 25 - 35 sec [facility] Comment: The recommended therapeutic range for full dose, unfractionated heparin at [facility] is 80 ? 114 seconds. The use of the anti-Xa (heparin) level rather than the PTT is recommended for monitoring anticoagulation intensity in critically ill patients receiving unfractionated heparin by continuous IV infusion. Blood specimen (specimen) 05/19/2017 10:51 AM EDT 05/19/2017 11:08 AM EDT Narrative Resulting Agency Comment Spec In Lab Chris Quijano MD HEMATOLOGY ORDERAB LES [facility] [place] [id number] * (ABNORMAL) Cardiac Enzymes (05/19/2017 10:51 AM EDT) [facility] Troponin-T 0.86(H) 0.00 - 0.00 ng/mL [facility] Comment: The 99th percentile for Troponin T is less than 0.01 ng/mL, any detectable cTnT concentration using this assay should be considered elevated. According to the third universal definition of myocardial infarction the following criteria with a clinical presentation consistent with acute myocardial ischemia meets the diagnosis for a myocardial infarction (GA). Detection of a rise and/or fall of cTnT, with at least one value greater than the 99th percentile (> or = 0.01) and with at least one of the following ?? Symptoms of ischemia ?? New or presumed new significant NS-sjmbslj-U wave (ST-T) changes or new left bundle [...] additional sample may be indicated. Reference: Third [place] Definition of Myocardial Infarction. Journal of the [place] College [employer] 2012;60:1581-98 Creatine Kinase 273(H) 0 - 200 unit/L [facility] Blood specimen (specimen) 05/19/2017 10:51 AM EDT 05/19/2017 11:09 AM EDT Narrative Resulting Agency Comment Spec In Lab Juan Jose Mills MD CHEMISTRY ORDERABLES Performing Organization Address City/State/[facility] Co de Phone Number [facility] [place] [place] [address] * ECHO COMPLETE W CONTRAST (05/19/2017 8:34 AM EDT) EF 65 HEARTLAB SYSTEM Anatomical Region Laterality Modality Other 05/19/2017 Narrative 05/19/2017 10:26 AM EDT Procedure: ?Transthoracic Echocardiogram Patient: ?JOSR Mariano ?(Age): 1940(76y) Med Rec#: ? [id number] ?Sex: ?M ? Site Loc: ? [facility] ?Ht / Wt: ??173(cm)/99(kg) Pt. Loc: ?Adult Floor ? BSA: ?2.12 Study Date: ?? 05/19/2017 ?Pt. Type: Inpatient Tape: ? Referring: SELF Referring: Chris Quijano Reading: Jonathan Garnett ([id number]) Network Cabler: Smith Sales [facility] Diagnosis: *ICD-10-PCS Chest pain, unspecified (R07.9) Indication: [...] E-wave Vmax ?1.1 ?m/sec ? MV deceleration [id number] ?msec ? MV A-wave Vmax ?1.1 ?m/sec [...] ? Mid-Inferior ?Normal ? Mid-Inferoseptal ?Normal ? [place]-Septal ? Normal ? [place]-Anterior ? Normal ? [place]-Lateral ?Normal ? [place]-Inferior ? Normal ? [place]-Tip ?Normal ? This report has been electronically signed by: Jonathan Garnett MD ? 05/19/2017 08:54:06 Images reviewed and interpretation verified [facility] Cardiac Ultrasound [facility] Procedure Note Jonathan Garnett MD - 05/19/2017 Procedure: Transthoracic Echocardiogram Patient: JOSR Mariano DOB(Age): 1940(76y) Med Rec#: [id number] Sex: M Site Loc: [facility] Ht / Wt: 173(cm)/99(kg) Pt. Loc: Adult Floor BSA: 2.12 Study Date: 05/19/2017 Pt. Type: Inpatient Tape: Referring: SELF Referring: Chris Quijano Reading: Jonathan Garnett ([id number]) Network Cabler: Smith Sales [facility] Diagnosis: *ICD-10-PCS Chest pain, unspecified (R07.9) Indication: [...] MV E-wave Vmax 1.1 m/sec MV deceleration cozr031.1 msec MV A-wave Vmax 1.1 m/sec MV [...] Normal Mid-Posterolateral Normal Mid-Inferior Normal Mid-Inferoseptal Normal [place]-Septal Normal [place]-Anterior Normal [place]-Lateral Normal [place]-Inferior Normal [place]-Tip Normal This report has been electronically signed by: Jonathan Garnett MD 05/19/2017 08:54:06 Images reviewed and interpretation verified [facility] Chris Quijano MD ECHO ORDERABLES * (ABNORMAL) APTT (05/19/2017 3:33 AM EDT) [facility] Partial Thromboplastin Time >160.0(Cr itical) 25 - 35 [facility] Comment: Called by: [facility], Read back by: sarah mena, Date/Time:05/19/17 04:46. The recommended therapeutic range for full dose, unfractionated heparin at [facility] is 80 ? 114 seconds. The use of the anti-Xa (heparin) level rather than the PTT is recommended for monitoring anticoagulation intensity in critically ill patients receiving unfractionated heparin by continuous IV infusion. Blood specimen (specimen) 05/19/2017 3:33 AM EDT 05/19/2017 3:58 AM EDT Narrative Resulting Agency Comment Spec In Lab Chris Quijano MD HEMATOLOGY ORDERAB LES [facility] [place] [address] * Differential, Automated (05/19/2017 3:33 AM EDT) [facility] Neutrophil % 69.9 % [facility] Neutrophil Absolute 4.15 1.70 - 6.10 x10(3)/[facility] Lymph % 18.5 % [facility] Lymphocytes Abs 1.1 0.9 - 3.2 x10(3)/[facility] Monocyte % 10.1 % [facility] Monocyte Abs 0.6 0.3 - 0.9 x10(3)/[facility] Eos % 1.0 % [facility] Eosinophils Abs 0.1 0.0 - 0.4 x10(3)/[facility] Basophil % 0.3 % [facility] Baso Absolute 0.0 0.0 - 0.1 x10(3)/[facility] Immature Gran % 0.20 % [facility] Comment: Immature granulocytes(IG's)percentage and absolute count will include metamyelocytes, myelocytes, and promyelocytes. Blood smears from CBCs yielding IG's will be scanned manually for concordance. If this scan disagrees with the automated IG or if promyelocytes are noted, a manual differential will be performed. Immature Gran Absolute 0.01 0.00 - 0.04 x10(3)/[facility] Blood specimen (specimen) 05/19/2017 3:33 AM EDT 05/19/2017 3:58 AM EDT Narrative Resulting Agency Comment Spec In Lab Chris Quijano MD HEMATOLOGY ORDERAB LES [facility] [place] [place] [address] * (ABNORMAL) Hemogram (05/19/2017 3:33 AM EDT) White Blood Cell 5.9 4.0 - 9.5 x10(3)/[facility] Red Blood Cell 4.41(L) 4.58 - 5.54 x10(6)/mc L [facility] Hemoglobin 14.2 13.7 - 16.5 gm/dL [facility] Hematocrit 42.5 40.5 - 48.5 % [facility] Mean Cell Volume 96.4(H) 82.9 - 93.1 fL [facility] Mean Cell Hemoglobin 32.2(H) 27.5 - 32.1 pg [facility] Mean Cell Hemoglobin Concentration 33.4 32.0 - 35.7 gm/dL [facility] Platelet 106(L) 145 - 357 x10(3)/ L [facility] RDW Standard Deviation 46.6(H) 36.0 - 45.0 fL [facility] RDW coefficient of variation 13.0 11.4 - 13.8 % [facility] Mean Platelet Volume 9.2 7.6 - 12.9 fL [facility] NRBC% auto 0.0 % [facility] NRBC Absolute 0.000 0.000 - 0.000 x10(3)/mc L [facility] Blood specimen (specimen) 05/19/2017 3:33 AM EDT 05/19/2017 3:58 AM EDT Narrative Resulting Agency Comment Spec In Lab Chris Quijano MD HEMATOLOGY ORDERAB LES Performing Organization Address [facility]/ZIP Co de Phone Number [facility] [place] [address] * Magnesium (05/19/2017 3:33 AM EDT) Magnesium 0.84 0.69 - 1.07 mmol/L [facility] Blood specimen (specimen) 05/19/2017 3:33 AM EDT 05/19/2017 3:58 AM EDT Narrative Resulting Agency Comment Spec In Lab Juan Jose Mills MD CHEMISTRY ORDERABLES Performing Organization Address [facility] Co de Phone Number [facility] [place] [address] * (ABNORMAL) BMP w/fasting Glucose (05/19/2017 3:33 [...] of Diabetes Mellitus, Position Statement from the [place] [employer]. ??Diabetes Care, Volume 33, Supplement 1, Aug 2009 Blood Urea Nitrogen 13 10 - 20 mg/dL [facility] Creatinine 0.64(L) 0.80 - 1.50 mg/dL [facility] Comment: Please note that the pediatric reference intervals supplied above were not validated at [facility]. Results from pediatric patients should be interpreted [...] LABORATORY Est Glomerular Filtration Rate >60 >=60 [facility] Comment: This estimated GFR (eGFR) [...] the following links into your internet browser. [email or web address] Blood specimen (specimen) 05/19/2017 3:33 AM EDT 05/19/2017 3:58 AM EDT Narrative Resulting Agency Comment Spec In Lab Juan Jose Mills MD CHEMISTRY ORDERABLES [facility] [place] [place] [address] * (ABNORMAL) Cardiac Enzymes (05/19/2017 3:33 AM [...] meets the diagnosis for a myocardial infarction ([place]). Detection of a rise and/or fall of cTnT, with at least one value greater than the 99th percentile (> or = 0.01) and with at least one of the following ?? Symptoms of ischemia ?? New or presumed new significant XO-heksslr-W wave (ST-T) changes or new left bundle [...] additional sample may be indicated. Reference: Third [place] Definition of Myocardial Infarction. Journal of the [place] College [employer]iology 2012;60:1581-98 Creatine Kinase 397(H) 0 - 200 unit/L [facility] Blood specimen (specimen) 05/19/2017 3:33 AM EDT 05/19/2017 3:58 AM EDT Narrative Resulting Agency Comment Spec In Lab Juan Jose Mills MD CHEMISTRY ORDERABLES [facility] [place] [address] * (ABNORMAL) Cardiac Enzymes (05/18/2017 9:10 PM [...] meets the diagnosis for a myocardial infarction (GA). Detection of a rise and/or fall of cTnT, with at least one value greater than the 99th percentile (> or = 0.01) and with at least one of the following ?? Symptoms of ischemia ?? New or presumed new significant FU-rkivdcz-B wave (ST-T) changes or new left bundle [...] additional sample may be indicated. Reference: Third [place] Definition of Myocardial Infarction. Journal of the [place] College [employer] 2012;60:1581-98 Creatine Kinase 629(H) 0 - 200 unit/L [facility] Blood specimen (specimen) 05/18/2017 9:10 PM EDT 05/18/2017 9:19 PM EDT Narrative Resulting Agency Comment Spec In Lab Juan Jose Mills MD CHEMISTRY ORDERABLES [facility] [place] [address] * (ABNORMAL) APTT (05/18/2017 7:45 PM EDT) [facility] Partial Thromboplastin Time 115(H) 25 - 35 sec [facility] Comment: The recommended therapeutic range for full dose, unfractionated heparin at [facility] is 80 ? 114 seconds. The use of the anti-Xa (heparin) level rather than the PTT is recommended for monitoring anticoagulation intensity in critically ill patients receiving unfractionated heparin by continuous IV infusion. Blood specimen (specimen) 05/18/2017 7:45 PM EDT 05/18/2017 7:52 PM EDT Narrative Resulting Agency Comment Spec In Lab Juan Jose Mills MD HEMATOLOGY ORDERABLE S [facility] [place] [place] [address] * XR Chest PA & Lateral (Generic) [...] (Bezet) 439 ms MUSE SYSTEM Calculated P [place] 46 degrees MUSE SYSTEM Calculated R [place] -7 degrees MUSE SYSTEM Calculated T [place] 81 degrees MUSE SYSTEM INTERPRETATION Sinus rhythm with 1st degree A-V block Anteroseptal infarct (cited on or before 18-MAY-2017) Abnormal ECG When compared with ECG of 18-MAY-2017 11:02, (unconfirmed) No significant change was found Confirmed by MD Kg, Shakir Adams ([id number]) on 05/19/2017 8:03:10 AM MUSE SYSTEM 05/18/2017 12:5 2 PM EDT 05/19/2017 8:03 AM EDT Chris Quijano MD ECG ORDERABLES MUSE SYSTEM * Differential, Automated (05/18/2017 12:51 PM EDT) Neutrophil % 66.4 % [facility] Neutrophil Absolute 3.33 1.70 - 6.10 x10(3)/[facility] Lymph % 20.6 % [facility] Lymphocytes Abs 1.0 0.9 - 3.2 x10(3)/[facility] Monocyte % 11.2 % [facility] Monocyte Abs 0.6 0.3 - 0.9 x10(3)/[facility] Eos % 1.0 % [facility] Eosinophils Abs 0.0 0.0 - 0.4 x10(3)/[facility] Basophil % 0.6 % [facility] Baso Absolute 0.0 0.0 - 0.1 x10(3)/[facility] Immature Gran % 0.20 % [facility] Blood specimen (specimen) 05/18/2017 12:51 PM EDT 05/18/2017 12:54 PM EDT Narrative Resulting Agency Comment Spec In Lab Chris Quijano MD HEMATOLOGY ORDERAB LES [facility] [place] [place] [address] * (ABNORMAL) Hemogram (05/18/2017 12:51 PM EDT) White Blood Cell 5.0 4.0 - 9.5 x10(3)/mc L [facility] Red Blood Cell 4.29(L) 4.58 - 5.54 x10(6)/mc L [facility] Hemoglobin 14.2 13.7 - 16.5 gm/dL [facility] Hematocrit 41.8 40.5 - 48.5 % [facility] Mean Cell Volume 97.4(H) 82.9 - 93.1 fL [facility] Mean Cell Hemoglobin 33.1(H) 27.5 - 32.1 pg [facility] Mean Cell Hemoglobin Concentration 34.0 32.0 - 35.7 gm/dL [facility] Platelet 108(L) 145 - 357 x10(3)/mc L [facility] RDW Standard Deviation 47.5(H) 36.0 - 45.0 fL [facility] RDW coefficient of variation 13.2 11.4 - 13.8 % [facility] Mean Platelet Volume 9.0 7.6 - 12.9 fL [facility] NRBC% auto 0.0 % [facility] NRBC Absolute 0.000 0.000 - 0.000 x10(3)/mc L [facility] Blood specimen (specimen) 05/18/2017 12:51 PM EDT 05/18/2017 12:54 PM EDT Narrative Resulting Agency Comment Spec In Lab Chris Quijano MD HEMATOLOGY ORDERAB LES Performing Organization Address [facility] Co de Phone Number [facility] [place] [address] * APTT (05/18/2017 12:51 PM EDT) [facility] Partial Thromboplastin Time 33 25 - 35 sec [facility] Comment: The recommended therapeutic range for full dose, unfractionated heparin at [facility] is 80 ? 114 seconds. The use of the anti-Xa (heparin) level rather than the PTT is recommended for monitoring anticoagulation intensity in critically ill patients receiving unfractionated heparin by continuous IV infusion. Blood specimen (specimen) 05/18/2017 12:51 PM EDT 05/18/2017 12:54 PM EDT Narrative Resulting Agency Comment Spec In Lab Chris Quijano MD HEMATOLOGY ORDERAB LES Performing Organization Address [facility] Co de Phone Number [facility] [place] [address] * Differential, Automated (05/18/2017 11:48 AM EDT) Neutrophil % 65.2 % [facility] Neutrophil Absolute 3.47 1.70 - 6.10 x10(3)/[facility] Lymph % 21.8 % [facility] Lymphocytes Abs 1.2 0.9 - 3.2 x10(3)/[facility] Monocyte % 11.3 % [facility] Monocyte Abs 0.6 0.3 - 0.9 x10(3)/[facility] Eos % 1.1 % [facility] Eosinophils Abs 0.1 0.0 - 0.4 x10(3)/[facility] Basophil % 0.4 % [facility] Baso Absolute 0.0 0.0 - 0.1 x10(3)/[facility] Immature Gran % 0.20 % [facility] Comment: Immature granulocytes(IG's)percentage and absolute count will include metamyelocytes, myelocytes, and promyelocytes. Blood smears from CBCs yielding IG's will be scanned manually for concordance. If this scan disagrees with the automated IG or if promyelocytes are noted, a manual differential will be performed. Immature Gran Absolute 0.01 0.00 - 0.04 x10(3)/[facility] Blood specimen (specimen) 05/18/2017 11:48 AM EDT 05/18/2017 11:53 AM EDT Narrative Resulting Agency Comment Spec In Lab Chris Quijano MD HEMATOLOGY ORDERAB LES Performing Organization Address City/State/[facility] Co de Phone Number [facility] [place] [address] * (ABNORMAL) Hemogram (05/18/2017 11:48 AM EDT) White Blood Cell 5.3 4.0 - 9.5 x10(3)/ L [facility] Red Blood Cell 4.50(L) 4.58 - 5.54 x10(6)/ L [facility] Hemoglobin 14.6 [...] CENTER LABORATORY Platelet 121(L) 145 - 357 x10(3)/ L [facility] RDW Standard Deviation 47.2(H) 36.0 - 45.0 [facility] RDW coefficient of variation 13.2 11.4 - 13.8 % [facility] Mean Platelet Volume 9.1 7.6 - 12.9 [facility] NRBC% auto 0.0 % [facility] NRBC Absolute 0.000 0.000 - 0.000 x10(3)/mc L [facility] Blood specimen (specimen) 05/18/2017 11:48 AM EDT 05/18/2017 11:53 AM EDT Narrative Resulting Agency Comment Spec In Lab Chris Quijano MD HEMATOLOGY ORDERAB LES Performing Organization Address City/[facility]/ZIP Co de Phone Number [facility] [place] [address] * EKG 12 Lead (05/18/2017 11:02 AM EDT) Ventricular rate 64 BPM MUSE SYSTEM Atrial Rate 64 BPM MUSE SYSTEM P-R Interval 198 ms MUSE SYSTEM QRS Duration 96 ms MUSE SYSTEM Q-T Interval 412 ms MUSE SYSTEM QTC Calculated (Bezet) 425 ms MUSE SYSTEM Calculated P [place] 50 degrees MUSE SYSTEM Calculated R [place] -10 degrees MUSE SYSTEM Calculated T [place] 97 degrees MUSE SYSTEM INTERPRETATION Normal sinus rhythm Low voltage QRS Cannot rule out Anteroseptal infarct , age undetermined Abnormal ECG No previous ECGs available Confirmed by MD Bharath, Gabriel Stallworth ([id number]) on 05/18/2017 8:36:47 PM MUSE SYSTEM 05/18/2017 11:0 2 AM EDT 05/18/2017 8:36 PM EDT Chris Quijano MD ECG ORDERABLES Performing Organization Address [facility]/ZIP Co de Phone Number MUSE SYSTEM * pro-Brain Natriuretic Peptide (05/18/2017 10:45 AM EDT) NT-proBNP 384 <=450 pg/mL [facility] Blood specimen (specimen) Venous Draw / Unknown 05/18/2017 10:45 AM EDT 05/18/2017 11:12 AM EDT Narrative Resulting Agency Comment Spec In Lab Chris Quijano MD CHEMISTRY ORDERABL ES Performing Organization Address [facility] Co de Phone Number [facility] [place] [address] * APTT (05/18/2017 10:45 AM EDT) Partial Thromboplastin Time Disregard 25 - 35 [facility] Comment: The recommended therapeutic range for full dose, unfractionated heparin at [facility] is 80 ? 114 seconds. The use [...] MD HEMATOLOGY ORDERAB LES Performing Organization Address [facility] Co de Phone Number [facility] [place] [place] [address] * Gold Tube HOLD (05/18/2017 10:45 AM EDT) Pathologist [facility] Gold Hold Sample in lab. [facility] Blood specimen (specimen) Venous Draw / Unknown 05/18/2017 10:45 AM EDT 05/18/2017 11:02 AM EDT Chris Quijano MD CHEMISTRY ORDERABL ES Performing Organization Address [facility] Co de Phone Number [facility] [place] [address] * Prothrombin Time (05/18/2017 10:45 AM EDT) [...] clinical circumstances. Specimen clotted. ??Called to ED 05/18/17 12:05 LTS. An INR <2.0 indicates adequate [...] HEMATOLOGY ORDERAB LES [facility] [place] [place] [address] * Basic Metabolic Panel (non-fasting) (05/18/2017 10:45 AM EDT) Glucose 139 65 - 199 mg/dL [facility] Comment:Diabetes: >=200 mg/d L plus symptoms Blood Urea Nitrogen 17 10 - 20 mg/dL [facility] Creatinine 0.84 0.80 - 1.50 mg/dL [facility] Comment: Please note that the pediatric reference intervals supplied above were not validated at [facility]. Results from pediatric patients should be interpreted [...] LABORATORY Est Glomerular Filtration Rate >60 >=60 [facility] Comment: This estimated GFR (eGFR) [...] the following links into your internet browser. [email or web address] Blood specimen (specimen) 05/18/2017 10:45 AM EDT 05/18/2017 11:00 AM EDT Narrative Resulting Agency Comment Spec In Lab Chris Quijano MD CHEMISTRY ORDERABL ES [facility] [place] [address] * (ABNORMAL) Troponin T (05/18/2017 10:45 AM [...] meets the diagnosis for a myocardial infarction ([place]). Detection of a rise and/or fall of cTnT, with at least one value greater than the 99th percentile (> or = 0.01) and with at least one of the following ?? Symptoms of ischemia ?? New or presumed new significant LQ-vfycvfb-Z wave (ST-T) changes or new left bundle [...] additional sample may be indicated. Reference: Third [place] Definition of Myocardial Infarction. Journal of the [employer] 2012;60:1581-98 Blood specimen (specimen) 05/18/2017 10:45 AM EDT 05/18/2017 11:00 AM EDT Narrative Resulting Agency Comment Spec In Lab Chris Quijano MD CHEMISTRY ORDERABL ES [facility] [place] [place] [address] * SCAN DOC: AUTOMATIC DOOR MECHANIC (05/18/2017 12:00 AM EDT) Anatomical Region Laterality Modality Other Narrative 05/18/2017 12:00 AM EDT Ordered by an unspecified provider. Scanning Provider MEDIA MGR SCAN EXT O RDR/RSLT documented in this encounter Visit Diagnoses Diagnosis Non-ST elevated myocardial infarction- Primary Acute myocardial infarction, subendocardial infarction, episode of care unspecified Non-ST elevation myocardial infarction (NSTEMI) Acute myocardial infarction, subendocardial infarction, episode of care unspecified NSTEMI (non-ST elevated myocardial infarction) Acute myocardial infarction, subendocardial infarction, episode of care unspecified Aortic valve disease--- TAVR December 2016 Aortic valve disorders Coronary disease---hx of CABG Coronary atherosclerosis of unspecified type of vessel, [place] or graft Chronic obstructive pulmonary disease Chronic airway obstruction, not elsewhere classified Prostate cancer--- treated with radical prostatectomy Malignant neoplasm of prostate Essential hypertension Unspecified essential hypertension Hyperlipidemia Other and unspecified hyperlipidemia documented in this encounter Admitting Diagnoses Diagnosis NSTEMI (non-ST elevated myocardial infarction) Acute myocardial infarction, subendocardial infarction, episode of care unspecified documented in this encounter Administered Medications Inactive Administered Medications - up to 3 most recent administrations Medication Order MAR Action Action Date Dose Rate Site acetaminophen (TYLENOL) tablet 650 mg 650 mg, Oral, EVERY 4 HOURS PRN, Starting on Fri05/18/17 at 1331, Until Fri05/20/17 at 2006, Pain, Headaches, Maximum dose of acetaminophen is 4000 mg from all sources in 24 hours., Routine aspirin chewable tablet 243 mg 243 mg, Oral, DAILY, First dose on Fri05/18/17 at 1044, Until Discontinued, Unless allergic or given ADULT PROTECTIVE CASEWORKER. If partial dose administered ADULT PROTECTIVE CASEWORKER administer remaining MG for a total dose of 325 mg/day., STAT Given 05/19/2017 8:48 AM EDT 243 mg Given 05/18/2017 10:43 AM EDT 243 mg aspirin chewable tablet 81 mg 81 mg, Oral, DAILY, First dose (after last modification) on Fri05/20/17 at 0900, Until Discontinued, Unless allergic or given ADULT PROTECTIVE CASEWORKER. If partial dose administered ADULT PROTECTIVE CASEWORKER administer remaining MG for a total dose [...] 05/19/2017 8:48 AM EDT 75 mg fentaNYL (PF) 50 mcg/mL 2mL syringe 25 mcg, Intravenous, EVERY 30 MIN PRN, Pain, sheath removal, Starting on Fri05/19/17 at 1623, 4 doses, Until Fri05/19/17 at 1731, May repeat once while in Cath Recovery Unit, Cath (Recovery-Hospital Unit) Given 05/19/2017 4:31 PM EDT 25 mcg heparin 25,000 units in dextrose 5% 500 mL infusion 0-5,000 Units/hr (0-100 mL/hr), Intravenous, CONTINUOUS, Starting [...] Indication: ACS (STEMI vs NSTEMI vs UA) New Bag 05/19/2017 8:50 AM EDT 1,200 Units/hr 24 mL/hr Rate/Dose Verify 05/19/2017 7:00 AM EDT 1,200 Units/hr 24 mL/hr Rate/Dose Change 05/19/2017 6:00 AM EDT 1,200 Units/hr 24 mL/hr ipratropium-albuterol (DUONEB) 0.5 mg-3 mg(2.5 mg base)/3 mL nebulizer solution 3 mL 3 mL, Nebulization, EVERY 4 HOURS PRN, Starting on Fri05/18/17 at 1458, Until Fri05/20/17 at 2006, Wheezing, Routine lidocaine (XYLOCAINE) 10 mg/mL (1 %) injection 3 mg 3 mg (0.3 mL), Subcutaneous, ONCE PRN, 1 dose, Starting on Fri05/18/17 at 1330, Until Fri05/20/17 at 2006, for discomfort with PIV insertion, Routine lisinopril (PRINIVIL;ZESTRIL) tablet 5 mg 5 mg, Oral, DAILY, First dose on Fri05/18/17 at 1630, Until Discontinued, Routine Given 05/20/2017 9:15 AM EDT 5 mg Given 05/19/2017 8:48 AM EDT 5 mg Given 05/18/2017 5:17 PM EDT 5 mg magnesium sulfate 2 g in sterile water 50 mL 2 g, Intravenous, ONCE, 1 dose, On Fri05/19/17 at 1115, Administer over 120 Minutes New Bag 05/19/2017 11:55 AM EDT 2 g 25 mL/hr magnesium sulfate 2 g in sterile water 50 mL 2 g, Intravenous, ONCE, 1 dose, On Fri05/20/17 at 0800, Administer over 120 Minutes Restarted 05/20/2017 9:06 AM EDT 2 g 25 mL/hr New Bag 05/20/2017 8:03 AM EDT 2 g 25 mL/hr meTOPROLOL tartrate (LOPRESSOR) tablet 25 mg 25 mg, Oral, EVERY 6 HOURS SCHEDULED, First dose (after last modification) on Fri05/18/17 at 1530, Until Discontinued, Please hold for SBP < 90 mmHg and HR < 60 BPM, Routine Given 05/20/2017 5:27 PM EDT 25 mg Given 05/20/2017 12:29 PM EDT 25 mg Given 05/19/2017 5:53 PM EDT 25 mg nitroGLYcerin (NITROSTAT) SL tablet 0.4 mg 0.4 mg, Sublingual, EVERY 5 MIN PRN, 3 doses, Starting on Fri05/18/17 at 1057, Until Fri05/19/17 at 1618, Chest pain, SL nitroglycerin may be repeated every 5 minutes as needed up to 3 doses, STAT Given 05/18/2017 11:03 AM EDT 0.4 m g nitroGLYcerin (NITROSTAT) SL tablet 0.4 mg 0.4 [...] to 72 hours., Recovery (Recovery-Hospital Unit), Routine perflutren protein-A microspheres (OPTISON) 0.22 mg/mL injection 3 mL 3 mL, Intravenous, ONCE, 1 dose, On Fri05/19/17 at 0900, Routine Given 05/19/2017 8:30 AM EDT 3 mLs sodium chloride 0.9 % flush 5 mL [...] link provided on this medication record., Routine sodium chloride 0.9% infusion 100 mL/hr, Intravenous, CONTINUOUS, Starting on Fri05/19/17 at 1645, Until Fri05/19/17 at 2144, Recovery (Recovery-Hospital Unit) [facility] 05/19/2017 4:35 PM EDT 100 mL/hr 100 mL /hr documented in this encounter Active and Recently Administered Medications Times are shown in EDT. Scheduled Medication Order 05/18/2017 05/19/2017 05/20/2017 aspirin chewable tablet 243 mg (CANCELED) 243 mg, Oral, DAILY, First dose on Fri05/18/17 at 1044, Until Discontinued, Unless allergic or given ADULT PROTECTIVE CASEWORKER. If partial dose administered ADULT PROTECTIVE CASEWORKER administer remaining MG for a total dose of 325 mg/day., STAT 1043 (Given - Provider: Yusra Grant, MONTSE) 0848 (Given - Provider: Luann Black RN) aspirin chewable tablet 81 mg 81 mg, Oral, DAILY, First dose (after last modification) on Fri05/20/17 at 0900, Until Discontinued, Unless allergic or given ADULT PROTECTIVE CASEWORKER. If partial dose administered ADULT PROTECTIVE CASEWORKER administer remaining MG for a total dose of 325 mg/day., Routine 1439 ([facility] Hold - Provider: Admin Adt - Reason: Transfer to a Procedural area)1531 ([facility] Unhold - Provider: Admin Adt)1543 ([facility] Hold - Provider: Admin Adt - Reason: Transfer to a Procedural area)1731 ([facility] Unhold - Provider: Admin Adt) 0917 (Given - Provider: Jani Colindres, RN) atorvastatin (LIPITOR) tablet 40 mg 40 mg, Oral, EVERY EVENING, First dose on 05/18/17 at 1700, Until Discontinued, Routine 1612 (Given - Provider: Luann Black RN) 1439 ([facility] Hold - Provider: Admin Adt - Reason: Transfer to a Procedural area)1531 ([facility] Unhold - Provider: Admin Adt)1543 ([facility] Hold - Provider: Admin Adt - Reason: Transfer to a Procedural area)1700 (Automatically Held - Provider: Admin Adt)1731 ([facility] Unhold - Provider: Admin Adt)1753 (Given - Provider: Luann Black RN) 1727 (Given - Provider: Jani Colindres, MONTSE) clopidogrel (PLAVIX) tablet 75 mg 75 mg, Oral, DAILY, First dose on 05/18/17 at 1503, Until Discontinued, Routine 1503 (Not Given - Provider: Luann Black RN - Reason: See comment - Comment: pt took this AM already) 0848 (Given - Provider: Luann Black RN)1439 ([facility] Hold - Provider: Admin Adt - Reason: Transfer to a Procedural area)1531 ([facility] Unhold - Provider: Admin Adt)1543 ([facility] Hold - Provider: Admin Adt - Reason: Transfer to a Procedural area)1731 ([facility] Unhold - Provider: Admin Adt) 0914 (Given - Provider: Jani Colindres, MONTSE) lisinopril (PRINIVIL;ZESTRIL) tablet 5 mg 5 mg, Oral, DAILY, First dose on 05/18/17 at 1630, Until Discontinued, Routine 1717 (Given - Provider: Luann Black RN) 0848 (Given - Provider: Luann Black RN)1439 ([facility] Hold - Provider: Admin Adt - Reason: Transfer to a Procedural area)1531 ([facility] Unhold - Provider: Admin Adt)1543 ([facility] Hold - Provider: Admin Adt - Reason: Transfer to a Procedural area)1731 ([facility] Unhold - Provider: Admin Adt) 0915 (Given - Provider: Jani Colindres RN) magnesium sulfate 2 g in sterile [...] Minutes 0803 (New Bag - Provider: Jani Colindres RN)0830 (Paused - Provider: Jani Colindres RN - Comment: c/o burning in arm, IV stopped)0906 (Restarted - Provider: Jani Colindres RN - Comment: IV team assessed site and moved IV to new site)1050 (Stopped - Provider: Jani Colindres RN) meTOPROLOL tartrate (LOPRESSOR) tablet 25 mg 25 mg, Oral, EVERY 6 HOURS SCHEDULED, First dose (after last modification) on Fri05/18/17 at 1530, Until Discontinued, Please hold for SBP < 90 mmHg and HR < 60 BPM, Routine 1611 (Given - Provider: Luann Black RN)2357 (Given - Provider: Kary Love RN) 0652 (Given - Provider: Kary Love RN)1157 (Given - Provider: Luann Black RN)1439 ([facility] Hold - Provider: Admin Adt - Reason: Transfer to a Procedural area)1531 ([facility] Unhold - Provider: Admin Adt)1543 ([facility] Hold - Provider: Admin Adt - Reason: Transfer to a Procedural area)1731 ([facility] Unhold - Provider: Admin Adt)1753 (Given - Provider: Luann Black RN) 0000 (Not Given - Provider: Kary Love RN - Reason: Order parameters not met)0600 (Not Given - Provider: Kary A Love, RN - Reason: Order parameters not met)1229 (Given - Provider: Jani Colindres, MONTSE)1727 (Given - Provider: Jani Colindres RN) perflutren protein-A microspheres (OPTISON) 0.22 mg/mL injection 3 mL (COMPLETED) 3 mL, Intravenous, ONCE, 1 dose, On Fri05/19/17 at 0900, Routine 0830 (Given - Provider: [...] 0849 (Given - Provider: Luann Black RN)1439 ([facility] Hold - Provider: Admin Adt - Reason: Transfer to a Procedural area)1531 ([facility] Unhold - Provider: Admin Adt)1543 ([facility] Hold - Provider: Admin Adt - Reason: Transfer to a Procedural area)1731 ([facility] Unhold - Provider: Admin Adt)2132 (Given - Provider: Kary Love, MONTSE) 0900 (Not Given - Provider: Jani Colindres RN - Reason: See comment - Comment: administered by IV team) Continuous Medication Order 05/18/2017 05/19/2017 05/20/2017 heparin 25,000 units in dextrose 5% 500 mL infusion (CANCELED)(Linked Group 1) 0-5,000 Units/hr (0-100 mL/hr), Intravenous, CONTINUOUS, Starting on 05/18/17 at 1225, Until Fri05/19/17 at 1942, Begin [...] 1243 (New Bag - Provider: Yusra Grant RN)2017 (Paused - Provider: Kary Love RN - [...] RN)1406 (Paused - Provider: Jani Harden RN)1439 ([facility] Hold - Provider: Admin Adt - Reason: Transfer to a Procedural area)1531 ([facility] Unhold - Provider: Admin Adt)1543 ([facility] Hold - Provider: Admin Adt - Reason: Transfer to a Procedural area)1731 ([facility] Unhold - Provider: Admin Adt) sodium chloride 0.9% infusion () 100 mL/hr, Intravenous, CONTINUOUS, Starting on Fri05/19/17 at 1645, Until Fri05/19/17 at 2144, Recovery (Recovery-Hospital Unit) 1635 (New Bag - Provider: Tamar Rutledge RN)2135 (Stopped - Provider: Kary Love RN) PRN Medication Order 05/18/2017 05/19/2017 05/20/2017 acetaminophen (TYLENOL) tablet 650 mg 650 mg, Oral, EVERY 4 HOURS PRN, Starting on 05/18/17 at 1331, Until Tu05/20/17 at 2006, Pain, Headaches, Maximum dose of acetaminophen is 4000 mg from all sources in 24 hours., Routine 1439 ([facility] Hold - Provider: Admin Adt - Reason: Transfer to a Procedural area)1531 ([facility] Unhold - Provider: Admin Adt)1543 ([facility] Hold - Provider: Admin Adt - Reason: Transfer to a Procedural area)1731 ([facility] Unhold - Provider: Admin Adt) fentaNYL (PF) [...] (Intra-Procedure), Routine 1459 (Given - Provider: Jani Otto RN)1551 (Given - Provider: Tashia Brown RN) heparin (porcine) injection (CANCELED) ONCE PRN, Starting [...] Until Fri05/20/17 at 2006, Wheezing, Routine 1439 ([facility] Hold - Provider: Admin Adt - Reason: Transfer to a Procedural area)1531 ([facility] Unhold - Provider: Admin Adt)1543 ([facility] Hold - Provider: Admin Adt - Reason: Transfer to a Procedural area)1731 ([facility] Unhold - Provider: Admin Adt) lidocaine (XYLOCAINE) 10 mg/mL (1 %) injection 3 mg 3 mg (0.3 mL), Subcutaneous, ONCE PRN, 1 dose, Starting on Fri05/18/17 at 1330, Until Fri05/20/17 at 2006, for discomfort with PIV insertion, Routine 1439 ([facility] Hold - Provider: Admin Adt - Reason: Transfer to a Procedural area)1531 ([facility] Unhold - Provider: Admin Adt)1543 ([facility] Hold - Provider: Admin Adt - Reason: Transfer to a Procedural area)1731 ([facility] Unhold - Provider: Admin Adt) lidocaine (XYLOCAINE) [...] 5 MIN PRN, 3 doses, Starting on 05/18/17 at 1057, Until Fri05/19/17 at 1618, Chest pain, SL nitroglycerin may be repeated every 5 minutes as needed up to 3 doses, STAT 1103 (Given - Provider: Yusra Grant RN) 1439 ([facility] Hold - Provider: Admin Adt - Reason: Transfer to a Procedural area)1531 ([facility] Unhold - Provider: Admin Adt)1543 ([facility] Hold - Provider: Admin Adt - Reason: Transfer to a Procedural area)1618 ([facility] Unhold - Provider: Admin Adt) nitroGLYcerin (NITROSTAT) [...] provided on this medication record., Routine 1439 ([facility] Hold - Provider: Admin Adt - Reason: Transfer to a Procedural area)1531 ([facility] Unhold - Provider: Admin Adt)1543 ([facility] Hold - Provider: Admin Adt - Reason: Transfer to a Procedural area)1731 ([facility] Unhold - Provider: Admin Adt) Linked Groups Order Group 1: heparin (porcine) injection 0-8,000 Units (CANCELED) 0-8,000 Units, Intravenous, BOLUS PER HEPARIN PROTOCOL, Starting on Fri05/18/17 at 1223, Until 05/19/17 at 1942, Per Protocol, START ADJUSTMENT SCHEDULE [...] UA) documented in this encounter 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
[2024-06-16 20:04] LABS: Abs Immature Grans 0.02 10^3/uL (0.0-0.06); Absolute Basophil Count 0.03 10^3/uL (0.0-0.2); Absolute Eosinophil Count 0.04 10^3/uL (0.0-0.7); Absolute Lymphocyte Count 0.92 10^3/uL (1.2-3.4); Absolute Monocyte Count 0.55 10^3/uL (0.1-0.8); Absolute Neutrophil Count 4.34 10^3/uL (1.2-6.7); Basophils % 0.5 %; Eosinophils % 0.7 %; HCT 40.1 % (40.0-50.0); HGB 13.1 g/dL (13.5-17.5); Immature Grans % 0.3 %; Lymphocytes % 15.6 %; MCH 32.5 pg (27.0-33.0); MCHC 32.7 % (32.0-36.0); MCV 100 fL (80-95); MPV 9.2 fL (8.0-11.0); Monocytes % 9.3 %; Neutrophils % 73.6 %; Platelet Count 130 10^3/uL (130-400); RBC 4.03 10^6/uL (4.36-5.78); RDW 13.5 % (11.8-14.1); RDW-SD 49.9 fL
[2024-06-16 20:34] LABS: ALT 51 U/L (16-63); AST 31 U/L (15-37); Albumin 3.5 g/dL (3.4-5.0); Alkaline Phosphatase 140 U/L (46-116); Anion Gap 7.5 mmol/L (3-11); BUN 30 mg/dL (7-18); Bilirubin, Total 0.51 mg/dL (0.2-1.0); CO2 31.5 mmol/L (21.0-32.0); CREATININE 1.1 mg/dL (0.70-1.30); Calcium 8.7 mg/dL (8.5-10.1); Chloride 105 mmol/L (98-107); Estimated GFR 66.19 (mL/min/1.73m2); Glucose 127 mg/dL (74-106); Potassium 4.9 mmol/L (3.5-5.1); Sodium 144 mmol/L (136-145); Total Protein 6.6 g/dL (6.4-8.2)
[2024-06-17 19:49] LABS: PSA, Screening 1.7 ng/mL (<=6.5)
== END 2024-06-16 15:29 | disposition home or self-care (01) ==
LOC: NCHCN 15:28
PROVIDERS: PCP Student in an Organized Health Care Education/Training Program; Visit Provider Student in an Organized Health Care Education/Training Program
DX: R06.00 Dyspnea, unspecified (principal); Z85.46 Personal history of malignant neoplasm of prostate
CPT/HCPCS: 80053; 84153; 85025

== ENCOUNTER → 2024-07-01 09:05 | Outpatient (BNVA) | payer MEDICARE, BC, SELFPAY | PROVIDERS: PCP Student in an Organized Health Care Education/Training Program; Referring Provider Family Medicine; Visit Provider Physician Assistant Surgical | DX: J44.9 Chronic obstructive pulmonary disease, unspecified (principal); G47.34 Idiopathic sleep related nonobstructive alveolar hypoventilation; J92.0 Pleural plaque with presence of asbestos; J98.4 Other disorders of lung; Z87.891 Personal history of nicotine dependence; Z23 Encounter for immunization | CPT/HCPCS: 90677; 99214; G0009 ==

== ENCOUNTER 2024-10-04 12:14 | Inpatient (IN) | payer MEDICARE, BC, SELFPAY ==
[2024-10-04] VITALS (97 sets, daily range): BP systolic 123–187; BP diastolic 47–96; PULSE 77–97; RESP 4–37; TEMP 36.2; O2SAT 63–100
--- NOTE | 2024-10-04 12:15 | RT.EKG_ITS ---
APPROVED REPORT Exam: Resting ECG Reason for Exam: palpitations Patient Location: E HR:85 bpm ECG Measurements Heart Rate 85 AXIS SC 135 P 60 QRSd 140 QRS -49 QT 404 T 119 QTc 482 Conclusion [place] paced no stemi
--- NOTE | 2024-10-04 12:45 | DI.RAD_ITS ---
Exam(s) XR CHEST 2V PA LATERAL EXAM: XR CHEST 2V PA LATERAL CLINICAL HISTORY: SOB, cough TECHNIQUE: 2D digital imaging was performed of the chest. Two images were obtained. PA and lateral views were obtained. COMPARISON: CT CT CHEST HIGH RESOLUTION from 07/12/2022 FINDINGS: There are low lung volumes. MEDIASTINUM: Normal. HEART: Upper limits of normal in size. Cardiac pacing device is in place. There is a TAVR. PULMONARY VASCULATURE: There is mild prominence of the pulmonary vasculature which may represent pulm onary venous congestion. LUNGS: No focal consolidating infiltrates are seen. PLEURAL SPACE: No pleural effusion or pneumothorax. There is calcified pleural plaque disease particu larly over the right hemithorax. BONE:Within normal limits for the patient's age. Sternal wires are in place. OTHER FINDINGS:Normal. IMPRESSION: 1. Mild pulmonary venous congestion. 2. No focal consolidating infiltrates. 3. Calcified pleural plaque disease. DATA REPOSITORY: RADIATION DOSE DELIVERED:
--- NOTE | 2024-10-04 12:51 | ED.GENADUL_ITS ---
Discharge Plan Discharge Details Chief Complaint: Dizzy/Sync Primary Care Provider: Wilber Luna ED Provider: Crista Adler Home Meds and New Rx's Prescriptions: No Action gabapentin 100 mg capsule 100 mg PO BID nitroglycerin 0.4 mg tablet, sublingual 0.4 mg sublingual Q5M PRN Rx Instructions: do not exceed 3 doses per episode clopidogrel 75 mg tablet 75 mg PO DAILY triamcinolone acetonide 0.1 % cream 1 applic topical BID PRN pregabalin 25 mg capsule 25 mg PO .COMPLEX Qty: 60 3RF Rx Instructions: 25 mg orally HS x 1week, then BID; furosemide 20 MG tablet 10 mg PO DAILY atorvastatin [Lipitor] 40 MG tablet 40 mg PO HS acetaminophen 325 MG tablet 650 mg PO Q6H PRN aspirin 81 mg Tablet,Delayed Release (Dr/Ec) 81 mg PO DAILY diphenhydramine-acetaminophen [Tylenol PM Extra Strength] 25-500 mg Tablet 1 tab PO QHS PRN HPI General Date/Time Provider Initiated Documentation: 10/04/24 12:43 . Limitations to Documentation: no limitations . Information obtained by: patient, family (daughter), RN notes reviewed and old records reviewed . History of Present Illness 83 year old M presents to the emergency department with the chief complaint of shortness of breath, described as severe, and is localized to the chest. Patient started experiencing this day(s) and it has been constant. Immobilization improves symptom(s), Movement worsens symptoms . Patient notes cough, malaise and shortness of breath; denies chest pain, diaphoresis, fever/chills, headaches, loss of appetite, nausea/vomiting, rash and syncope. Patient did receive the following treatments prior to arrival, none Related Data Home Medications ?Medication ?Instructions ?Recorded ?Confirmed acetaminophen 325 mg tablet 650 mg PO Q6H PRN 10/03/17 10/04/24 atorvastatin 40 mg tablet (Lipitor) 40 mg PO HS 10/03/17 10/04/24 furosemide 20 mg tablet 10 mg PO DAILY 10/03/17 10/04/24 aspirin 81 mg tablet,delayed 81 mg PO DAILY 01/24/21 10/04/24 release diphenhydramine 25 1 tab PO QHS PRN 01/24/21 10/04/24 mg-acetaminophen 500 mg tablet (Tylenol PM Extra Strength) clopidogrel 75 mg tablet 75 mg PO DAILY 08/28/22 10/04/24 nitroglycerin 0.4 mg sublingual 0.4 mg sublingual Q5M PRN 08/28/22 10/04/24 tablet triamcinolone acetonide 0.1 % 1 applic topical BID PRN 09/03/22 10/04/24 topical cream pregabalin 25 mg capsule 25 mg PO .COMPLEX #60 caps 11/13/22 10/04/24 gabapentin 100 mg capsule 100 mg PO BID 04/17/23 10/04/24 Previous Rx's ?Medication ?Instructions ?Recorded pregabalin 25 mg capsule 25 mg PO .COMPLEX #60 caps 11/13/22 Allergies Allergy/AdvReac Type Severity Reaction Status Date / Time olodaterol (From Stiolto AdvReac Mild Nausea Verified 10/04/24 13:18 Respimat) tiotropium (From Stiolto AdvReac Mild Nausea Verified 10/04/24 13:18 Respimat) General Stated Complaint: Dizzy/Sync [id number]: 3 Review of Systems Constitutional Constitutional: Reports as per HPI, Denies chills, Denies fever(s), Denies headache(s), Denies lethargy and Denies poor appetite ENT Ears, Nose, Mouth, and Throat: Denies dizziness and Denies headache(s) Cardiovascular Cardiovascular: Reports as per HPI Respiratory Respiratory: Reports as per HPI, Denies chest congestion, Denies pain on inspiration, Denies pain with cough and Denies wheezing Gastrointestinal Gastrointestinal: Reports as per HPI, Denies abdominal pain, Denies diarrhea, Denies nausea and Denies vomiting Genitourinary Genitourinary: Denies system reviewed and no additional complaints, except as documented (denies change in urinary habits) Musculoskeletal Musculoskeletal: Reports as per HPI and Denies back pain Integumentary/Breasts Skin/Breast: Reports as per HPI and Denies rash Neurologic Neurologic: Reports as per HPI, Denies dizziness and Denies headache(s) Allergic/Immunologic Allergic/Immunologic: Denies wheezing Exam Const General: cooperative, well developed, acute distress moderate and respiratory and ill appearing acutely and chronically Nutritional Appearance: average body habitus and well nourished Orientation: alert, awake and oriented x3 HENMT Head: normal to inspection Ears: hearing grossly normal bilaterally Mouth: moist mucous membranes Chest Chest: normal inspection of the chest, normal palpation of entire chest wall and no crepitus Resp Effort & Inspection: normal respiratory effort, able to speak in complete sentences, no respiratory distress and tachypneic Auscultation: clear to auscultation bilaterally, no rales, no rhonchi and no wheezes Cardio Rate: regular rate Rhythm: regular rhythm Heart Sounds: murmur systolic GI Inspection: normal to inspection, no edema and non-distended Palpation: soft, no guarding, not rigid and nontender Auscultation: normal bowel sounds Skin General skin exam: no rashes or lesions noted Trauma: no lacerations or abrasions Neuro General: patient alert, patient awake and patient oriented x3 Cognition: normal cognition Speech: speech normal Extrem General: normal to inspection, capillary refill normal, no pedal edema and no calf tenderness Course Vital Signs Vital signs: Vital Signs Temperature 36.2 C L 10/04/24 12:22 Pulse 83 10/04/24 12:22 Respiratory Rate 24 10/04/24 12:22 Blood Pressure 127/85 10/04/24 12:22 Pulse Oximetry 63 L 10/04/24 12:22 Temperature 36.2 C L 10/04/24 12:22 Temperature Source Oral 10/04/24 12:22 Pulse 83 10/04/24 12:22 Respiratory Rate 24 10/04/24 12:22 Blood Pressure 127/85 10/04/24 12:22 Blood Pressure Position Sitting 10/04/24 12:22 Pulse Oximetry 63 L 10/04/24 12:22 Oxygen Delivery Method Room Air 10/04/24 12:22 Oxygen Flow Rate 0 10/04/24 12:22 Comment initiated 2L 10/04/24 12:22 Medical Decision Making Patient is a pleasant 83-year-old male with past medical history significant for COPD, nocturnal hypoxia, former smoker, asbestos induced pleural plaques, restrictive lung disease, presented with chief complaint of shortness of breath. While the patient does have chronic issues with his breathing, he reports about 5 days ago he became significantly short of breath. Denies any chest pain. Denies any nausea or vomiting. No change in bowel or bladder he reports. He does endorse some left-sided abdominal discomfort that he states also began about 2 weeks ago. States this waxes and wanes and is primarily associated with p.o. intake. Patient reports that 3 weeks ago he underwent a replacement of his pacemaker. States that he had been feeling well status post replacement until more recently. No recent change in his medications. He is up-to-date on his Pneumovax. Patient is on furosemide. He denies any personal history of DVT. He does not have any notable leg swelling or calf pain, denies any calf pain at home. Patient is on 75 mg of clopidogrel. He has as needed nitro and states that he has not had any chest pains has not been using this. On exam, patient appears acute on chronically ill. He was initially hypoxic with an O2 of 63%. Patient is post to be on 2 L nasal cannula at home but has not been using this. Unclear why he has not been using this but it sounds like he is unsure how/when to utilize his oxygen, will ensure clarity prior to discharge. Patient is tachypneic at this point, I do not appreciate any wheezing or adventitious lung sounds. He does have some diminished lung sounds. Review of his chart reveals him to have more of a restrictive pathology then obstructive. Does have a systolic murmur which sounds to be chronic, patient does have a history of aortic valvular repair which does correlate with exam findings. Abdomen is benign. No lower extremity edema or calf pain. At this point, I do not see evidence to suggest ACS. More concerned about acute respiratory failure. Unclear if this is associated with him being noncompliant. Alternatively, I also considered viral illness such as COVID, flu, RSV. Will assess for these. Will also assess for pneumonia. As the patient did have a procedure recently, I also considered the potential pulmonary emboli. He is not formally anticoagulated although he does have clopidogrel use. Will obtain a D- dimer and screening. If elevated, we will move forward with a CTA. Patient did have immediate response with oxygen, we able to titrate him down to his typical 2 L nasal cannula to maintain his room air O2. Also considered potential CHF exacerbation given his history of being on Lasix, will most obtain a BNP. Chest x-ray evaluated by radiologist, they note findings suggestive of venous congestion. Again, patient is receiving Lasix. Labs reviewed. No leukocytosis. Stable H&H. His BNP is slightly elevated above age-adjusted normal, we will move forward with a CT for PE study. His VBG is concerning for a slight acidosis of 7.3. His pCO2, will chronically elevated is significantly elevated at 75. Having RT come to evaluate the patient, start BiPAP for retaining CO2. CMP significant for the elevated CO2. GFR normal. BNP is slightly elevated 717. Alk phos is elevated at 153 which appears to be chronic for the patient. Negative for respiratory panel. CT reviewed by radiologist. No evidence of PE, pneumonia or acute pathology. More concerning for restrictive lung disease that shows scarring. 1 hour after starting the BiPAP, repeat VBG shows improved acidosis but minimal change in the patient's CO2 level. Will initially, I was not think the patient needed steroids as it seems to be more restrictive than obstructive, will move forward with methylprednisolone. I did reevaluate him and did not note any wheezing but I believe that at this point, the risks associated with a dose of steroids is minimal and may provide some insight into the underlying disease pathology. Patient I discussed admission. He wished to be a full code. His daughter is at bedside. Will consult with hospitalist regarding admission for CO2 retention, hypoxia. Currently, when patient does stand at bedside, his O2 sat does drop into the 70s despite being on elevated dose of oxygen. At the end of my shift, care transitioned to oncoming clinician. Hospitalist has been paged. 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 COPD (chronic obstructive pulmonary disease) (Chronic) Pseudophakia (Acute) Chronic kidney disease (CKD) (Chronic) BMI 30.0-30.9,adult (Acute) Prediabetes (Acute) Mild memory disturbance (Acute) Dyspnea on exertion (Acute) Acute hypotension (Acute) Closed head injury (Acute) Medical History Abdominal aortic aneurysm Anemia Asbestosis (05/22/17) Calculus of kidney (05/22/17) Peripheral neuropathy Prostate cancer, primary, with metastasis from prostate to other site Renal mass Sick sinus syndrome Thrombocytopenia Vitamin D deficiency (05/22/17) Surgical History Hx of aortic valve replacement S/P arthroscopic knee surgery S/P CABG x 4 S/P cervical discectomy S/P coronary artery stent placement S/P lumbar spine operation S/P prostatectomy Family History Mother Essential hypertension Congestive heart failure Father Diabetes Stroke Social History Smoking/Tobacco Use Status: Former Tobacco Use Smoking risk assessment performed?: Yes Alcohol Intake: current Alcohol Intake frequency: a few times a month Drug use: Never Substance use type: does not use Household members: spouse 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
[2024-10-04 12:59] LABS: Abs Immature Grans 0.02 10^3/uL (0.0-0.06); Absolute Basophil Count 0.02 10^3/uL (0.0-0.2); Absolute Eosinophil Count 0.05 10^3/uL (0.0-0.7); Absolute Lymphocyte Count 0.76 10^3/uL (1.2-3.4); Absolute Monocyte Count 0.63 10^3/uL (0.1-0.8); Basophils % 0.3 %; Eosinophils % 0.7 %; HGB 13.7 g/dL (13.5-17.5); Immature Grans % 0.3 %; Lymphocytes % 11.2 %; MCH 31.9 pg (27.0-33.0); MCHC 31.1 % (32.0-36.0); MCV 102 fL (80-95); MPV 8.7 fL (8.0-11.0); Monocytes % 9.3 %; Neutrophils % 78.2 %; Platelet Count 163 10^3/uL (130-400); RDW 13.4 % (11.8-14.1); RDW-SD 50.5 fL; WBC 6.78 10^3/uL (4.4-10.8)
[2024-10-04 13:15] LABS: ALT 34 U/L (16-63); AST 23 U/L (15-37); Albumin 3.1 g/dL (3.4-5.0); Alkaline Phosphatase 153 U/L (46-116); Anion Gap 2.4 mmol/L (3-11); BUN 22 mg/dL (7-18); Bilirubin, Total 0.53 mg/dL (0.2-1.0); CO2 36.6 mmol/L (21.0-32.0); Calcium 8.8 mg/dL (8.5-10.1); Chloride 104 mmol/L (98-107); Estimated GFR 74.21 (mL/min/1.73m2); Glucose 94 mg/dL (74-106); Magnesium 2.2 mg/dL (1.8-2.4); Potassium 4.9 mmol/L (3.5-5.1); Sodium 143 mmol/L (136-145); Total Protein 7.2 g/dL (6.4-8.2)
[2024-10-04 13:26] LABS: NT-proBNP 717 pg/mL (<300); Troponin I 38 ng/L (<or=76)
[2024-10-04 13:31] LABS: D-Dimer 849 ng/mlFEU (<500)
--- NOTE | 2024-10-04 14:00 | DI.CT_ITS ---
Exam(s) CT CHEST PE CTA EXAM: CT CHEST PE CTA CLINICAL HISTORY: shortness of breath, recent procedure. TECHNIQUE: Imaging Protocol: Axial CT angiography was performed with multi-slice acquisition and mu lti-planar and/or 3D reconstructions. Lung Computer Aided Detection (CAD) was utilized. CONTRAST MATERIAL: Intravenous: Omnipaque 350 contrast volume:100 mL COMPARISON: CT CT CHEST PE ABD PELVIS W from 12/29/[address] CHEST HIGH RESOLUTION from 07/12/2022 CR XR CHEST 2V PA LATERAL from 10/04/2024 FINDINGS: Tracheobronchial tree: Patent where visualized. No bronchiectasis. Pulmonary parenchyma: There is again seen scarring in the lung bases which appears stable. No focal consolidating infiltrates are seen. Atelectatic changes are seen in the dependent portions of the mian ngs. No suspicious pulmonary nodules are present. Pulmonary Arteries: No evidence of filling defect to suggest pulmonary emboli. Mediastinum and Katya: No dominant adenopathy or fluid collection. The esophagus is unremarkable. Visualized thyroid gland: Unremarkable. Pleura: There is again seen extensive pleural calcific plaque disease. There is a stable small left pleural effusion. Heart: Cardiomegaly. There is a TAVR . Three vessel coronary artery calcification is present. No p ericardial effusion. Aorta: Thoracic aorta non-dilated. No evidence of dissection. Atherosclerotic calcification is presen t. Upper abdomen: Unremarkable. Tubes, Catheters, and Lines: There is a cardiac monitoring device in place. Soft tissues: Unremarkable. Bones: Within normal limits for the patient's age.There are sternal wires in place. IMPRESSION: 1. No evidence of pulmonary embolism, thoracic aortic dissection or aneurysm. 2. No acute pulmonary process. 3. Incidental finding seen in the chest as described above. RADIATION DOSE DELIVERED: 232.74mGy.cm Total DLP DATA REPOSITORY: All CT scans at this facility are submitted to the National Radiology Data Registry (NRDR) Dose Index Registry (DIR) with the [employer] (A[employer]). RADIATION OPTIMIZATION: All CT scans at this facility use at least one of these dose optimization te chniques: automated exposure control; mA and/or kV adjustment per patient size (includes targeted exa ms where dose is matched to clinical indication); or iterative reconstruction.
[2024-10-04 14:38] LABS: COVID-19 PCR Negative (Negative); Influenza A PCR Negative (Negative); Influenza B PCR Negative (Negative); RSV PCR Negative (Negative); Source Nasopharynx
[2024-10-04 14:40] LABS: Troponin I 36 ng/L (<or=76)
[2024-10-04 14:46] LABS: BE (Venous) 11 mmol/L (-2-3); HCO3 (Venous) 37 mmol/L (23-28); O2 Sat (Venous) 67 %; TCO2 (Venous) 35 mmol/L (24-29); pO2 (Venous) 38 mmHg
[2024-10-04 14:48] LABS: pCO2 (Venous) 75 mmHg (41-51)
[2024-10-04] MEDS: Furosemide 40 MG/4 ML VIAL IVP (15:22)
[2024-10-04] MEDS: Normal Saline - Diluent 50 ML VIAL IJ (16:05)
[2024-10-04] MEDS: Omnipaque 350 MG/ML 100 ML BTL IJ (16:06)
[2024-10-04 16:22] LABS: Troponin I 36 ng/L (<or=76)
[2024-10-04 16:45] LABS: BE (Venous) 13 mmol/L (-2-3); HCO3 (Venous) 39 mmol/L (23-28); O2 Sat (Venous) 53 %; TCO2 (Venous) 36 mmol/L (24-29); pH (Venous) 7.33 (7.31-7.41); pO2 (Venous) 30 mmHg
[2024-10-04 16:50] LABS: pCO2 (Venous) 74 mmHg (41-51)
[2024-10-04] MEDS: methylPREDNISolone SUCC 125 MG VIAL IVP (17:44)
--- NOTE | 2024-10-04 20:22 | HPE_ITS ---
Date of service: 10/04/24 Time of Service: 20:22 Assessment and Plan Assessment and plan (1) Acute on chronic respiratory failure with hypoxia and hypercapnia: Start date: 10/04/24 Status: Acute Assessment and plan: This is an 83-year-old gentleman who has presentation with exacerbation of his chronic COPD/asbestosis with restrictive lung disease with previous smoking history and no chronic use of inhalers at home with nighttime oxygen supplementation continuously and daytime oxygen supplementation as needed now with increased daytime oxygen needs and exertional dyspnea. He does not have any overt infiltrates but does have worsening of his chronic hypercapnic and hypoxic respiratory failure. He responded to BiPAP with improvement of his VBG and now is on increased oxygen continuously. He will be admitted for treatment of exacerbation of COPD and oxygen supplementation with BiPAP as needed. He also will be continued on IV Solu-Medrol. Prednisone quickly the patient never requiring prednisone in the past. Aggressive nebulizer treatments if improvement. No indication for antibiotics at this time. He is a full code. (2) Restrictive lung disease: Status: Chronic Assessment and plan: Continue respiratory support with treatment as above. (3) Asbestosis: Assessment and plan: Continue chronic oxygen the patient hopefully to return to his previous oxygen needs of continuous nighttime oxygen supplementation and oxygen supplementation through the day with exertion and as needed. (4) Sick sinus syndrome: Assessment and plan: Patient has pacemaker which appear to be functioning. (5) Presence of cardiac pacemaker: Status: Chronic Assessment and plan: Cardiac monitoring while hospitalized. She is a full code. (6) CAD (coronary artery disease): Status: Chronic Assessment and plan: No evidence of exacerbation with continuation of outpatient medical therapy. (7) Peripheral neuropathy: Assessment and plan: Continue outpatient medical therapy with the patient appeared to be on Lyrica and recently and Neurontin will be held with confirmation of outpatient medications before discharge. Patient appears to be unclear as to whether he is on both of these medications. History of Present Illness History of Present Illness Chief Complaint: Shortness of breath over days not wearing oxygen as ordered. 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 He does have COPD but mostly restrictive lung disease with asbestosis. He chronically is on oxygen at night and does wear during the day as needed. Recently he has had increased needs for oxygen during the day and this has been worsening over the last 2 weeks. He has had no fever or upper respiratory symptoms to indicate viral infection and that is influenza/COVID/RSV screening was negative. Chest x-ray also did not reveal any acute process. He did require BiPAP with CO2 retention though he was not necessarily confused and does not have CPAP or BiPAP at home. At the time I saw the patient he was off BiPAP on oxygen and speaking in short sentences but comfortable. He was not pursed-lip breathing. Patient lives with his and daughter who brought him to the ED for evaluation. He denies any chest pain with his shortness of breath and mostly had exertional dyspnea. He is disabled by his respiratory symptoms. He was given Solu-Medrol in the ED and did respond to nebulizers and BiPAP. His VBG did show improvement of possible overtreatment of his chronic hypercapnic respiratory failure. His oxygen will be adjusted and BP follow-up as needed. Will be admitted for treatment of his acute exacerbation of COPD and chronic restrictive lung disease with hypoxemia worsening requiring increased oxygen and support. He is a full code. Review of Systems Narrative: 13 point review of systems otherwise unrevealing or stable. [facility] All Active Problems (Updated 10/04/24 @ 22:24 by Miko Birmingham) Acute on chronic respiratory failure with hypoxia and hypercapnia (Acute) Acute on chronic respiratory failure with hypoxia and hypercapnia (Acute) Chronic hypoxic respiratory failure (Chronic) Asbestos-induced pleural plaque (Acute) Lumbar stenosis (Acute) 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 COPD (chronic obstructive pulmonary disease) (Chronic) Pseudophakia (Acute) Chronic kidney disease (CKD) (Chronic) BMI 30.0-30.9,adult (Acute) Prediabetes (Acute) Mild memory disturbance (Acute) Dyspnea on exertion (Acute) Acute hypotension (Acute) Closed head injury (Acute) Medical History Vitamin D deficiency (05/22/17) Calculus of kidney (05/22/17) Asbestosis (05/22/17) Prostate cancer, primary, with metastasis from prostate to other site Anemia Peripheral neuropathy Sick sinus syndrome Renal mass Thrombocytopenia Abdominal aortic aneurysm Surgical History S/P coronary artery stent placement S/P arthroscopic knee surgery S/P prostatectomy S/P CABG x 4 S/P cervical discectomy S/P lumbar spine operation Hx of aortic valve replacement Family History Mother Essential hypertension Congestive heart failure Father Diabetes Stroke Social History Smoking/Tobacco Use Status: Former Tobacco Use Smoking risk assessment performed?: Yes Alcohol Intake: current Alcohol Intake frequency: a few times a month Drug use: Never Substance use type: does not use Household members: spouse current occupation: [employer] - now retired Do you feel safe at home: Yes Do you feel safe in your relationship?: Yes Meds Allergies and Home Medications Allergies Allergy/AdvReac Type Severity Reaction Status Date / Time olodaterol (From Stiolto AdvReac Mild Nausea Verified 10/04/24 13:18 Respimat) tiotropium (From Stiolto AdvReac Mild Nausea Verified 10/04/24 13:18 Respimat) Home Medications ?Medication ?Instructions ?Recorded ?Confirmed ?Type acetaminophen 325 mg tablet 650 mg PO Q6H PRN 10/03/17 10/04/24 History atorvastatin 40 mg tablet (Lipitor) 40 mg PO HS 10/03/17 10/04/24 History furosemide 20 mg tablet 10 mg PO DAILY 10/03/17 10/04/24 History aspirin 81 mg tablet,delayed 81 mg PO DAILY 01/24/21 10/04/24 History release diphenhydramine 25 1 tab PO QHS PRN 01/24/21 10/04/24 History mg-acetaminophen 500 mg tablet (Tylenol PM Extra Strength) clopidogrel 75 mg tablet 75 mg PO DAILY 08/28/22 10/04/24 History nitroglycerin 0.4 mg sublingual 0.4 mg sublingual Q5M PRN 08/28/22 10/04/24 History tablet triamcinolone acetonide 0.1 % 1 applic topical BID PRN 09/03/22 10/04/24 History topical cream pregabalin 25 mg capsule 25 mg PO .COMPLEX #60 caps 11/13/22 10/04/24 Rx gabapentin 100 mg capsule 100 mg PO BID 04/17/23 10/04/24 History Exam Narrative Exam Narrative: General: Patient appears appropriate for age, alert and oriented x 3 and in moderate respiratory distress especially with exertion. HEENT: Normocephalic, eyes with pupils equal and react to light symmetrically, extraocular movement intact and sclera anicteric. Oropharynx with dry mucosa and fair dentition. Neck: Supple without JVD. Back: Kyphotic without CVA tenderness. Lungs: Decreased aeration diffusely with fair air movement, physical breath sound diffusely, no focalizing rales or rhonchi. Scant expiratory wheeze. No increased expiratory phase. Heart: Distant heart sounds with regular rate rhythm and no murmurs or gallops appreciated. Sternal scar. Abdomen: Normal contour, soft and nontender to palpation with no palpable hepatosplenomegaly. Bowel sounds positive in all quadrants. Genitalia/rectal: Exam deferred. Extremities: Without clubbing, cyanosis or grossly pitting edema. Fair capillary refill. Skin: Normal color, warm and dry actinic changes over sun exposed areas with no suspicious lesions. Neuro: Cranial nerves II through XII gross intact, no focal deficits and no tremor. Psych: Normal affect and mood. No abnormal thought processes. Remote and recent memory grossly intact. Results Imaging Imaging Studies: EXAM: CT CHEST PE CTA CLINICAL HISTORY: shortness of breath, recent procedure. TECHNIQUE: Imaging Protocol: Axial CT angiography was performed with multi- slice acquisition and multi-planar and/or 3D reconstructions. Lung Computer Aided Detection (CAD) was utilized. CONTRAST MATERIAL: Intravenous: Omnipaque 350 contrast volume:100 mL COMPARISON: CT CT CHEST PE ABD PELVIS W from 12/29/[address] CHEST HIGH RESOLUTION from 07/12/2022 CR XR CHEST 2V PA LATERAL from 10/04/2024 FINDINGS: Tracheobronchial tree: Patent where visualized. No bronchiectasis. Pulmonary parenchyma: There is again seen scarring in the lung bases which appears stable. No focal consolidating infiltrates are seen. Atelectatic changes are seen in the dependent portions of the lungs. No suspicious pulmonary nodules are present. Pulmonary Arteries: No evidence of filling defect to suggest pulmonary emboli. Mediastinum and Katya: No dominant adenopathy or fluid collection. The esophagus is unremarkable. Visualized thyroid gland: Unremarkable. Pleura: There is again seen extensive pleural calcific plaque disease. There is a stable small left pleural effusion. Heart: Cardiomegaly. There is a TAVR . Three vessel coronary artery calcification is present. No pericardial effusion. Aorta: Thoracic aorta non-dilated. No evidence of dissection. Atherosclerotic calcification is present. Upper abdomen: Unremarkable. Tubes, Catheters, and Lines: There is a cardiac monitoring device in place. Soft tissues: Unremarkable. Bones: Within normal limits for the patient's age.There are sternal wires in place. IMPRESSION: 1. No evidence of pulmonary embolism, thoracic aortic dissection or aneurysm. 2. No acute pulmonary process. 3. Incidental finding seen in the chest as described above. Date of Exam: 10/17/21 EXAM: Comprehensive 2D, Doppler, and color-flow Echocardiogram Patient Location: Out-Patient Grant Administrator: Shirlene Oscar RDCS (AE) Indications: MINOR, CAD, s/p CABG, h/o AVR, h/o Catheterization Other Information Study Quality: Adequate Conclusion Normal left ventricular chamber size. Borderline concentric left ventricular hypertrophy. Estimated ejection fraction is 60%. Wall motion is normal Normal right ventricular size and systolic function Device lead noted in the right heart Both atria are normal in size There is a bioprosthetic aortic valve with a mean gradient of 10 mmHg. There is no aortic regurgitation Moderate mitral annular calcification. Mild mitral regurgitation Normal tricuspid valve with mild regurgitation. Estimated right ventricular systolic pressure is 34 mmHg Labs 10/05/24 05:30 10/05/24 05:30 Labs: Laboratory Results - last 24 hr 10/04/24 10/04/24 10/04/24 12:54 13:40 14:42 WBC 6.78 RBC 4.30 L Hgb 13.7 Hct 44.0 MCV 102 H MCH 31.9 MCHC 31.1 L RDW 13.4 Plt Count 163 MPV 8.7 Immature Gran % 0.3 Neutrophils % 78.2 Lymphocytes % 11.2 Monocytes % 9.3 Eosinophils % 0.7 Basophils % 0.3 Nucleated RBC % 0.0 Absolute Neutrophils 5.30 Absolute Lymphocytes 0.76 L Absolute Monocytes 0.63 Absolute Eosinophils 0.05 Absolute Basophils 0.02 D-Dimer 849 H VBG pH 7.30 L VBG pCO2 75 H* VBG pO2 38 VBG HCO3 37 H VBG Total CO2 35 H VBG O2 Saturation 67 VBG Base Excess 11 H Sodium 143 Potassium 4.9 Chloride 104 Carbon Dioxide 36.6 H Anion Gap 2.4 L BUN 22 H Creatinine 1.0 Est GFR (CKD-EPI 2020) 74.21 Glucose 94 Calcium 8.8 Magnesium 2.2 Total Bilirubin 0.53 AST 23 ALT 34 Alkaline Phosphatase 153 H Troponin I 38 36 NT-Pro-B Natriuret Pep 717 H Total Protein 7.2 Albumin 3.1 L COVID-19 Source Nasopharynx SARS-CoV-2 (PCR) Negative Influenza Type A (PCR) Negative Influenza Type B (PCR) Negative RSV (PCR) Negative 10/04/24 10/04/24 15:30 16:41 WBC RBC Hgb Hct MCV MCH MCHC RDW Plt Count MPV Immature Gran % Neutrophils % Lymphocytes % Monocytes % Eosinophils % Basophils % Nucleated RBC % Absolute Neutrophils Absolute Lymphocytes Absolute Monocytes Absolute Eosinophils Absolute Basophils D-Dimer VBG pH 7.33 VBG pCO2 74 H* VBG pO2 30 VBG HCO3 39 H VBG Total CO2 36 H VBG O2 Saturation 53 VBG Base Excess 13 H Sodium Potassium Chloride Carbon Dioxide Anion Gap BUN Creatinine Est GFR (CKD-EPI 2020) Glucose Calcium Magnesium Total Bilirubin AST ALT Alkaline Phosphatase Troponin I 36 NT-Pro-B Natriuret Pep Total Protein Albumin COVID-19 Source SARS-CoV-2 (PCR) Influenza Type A (PCR) Influenza Type B (PCR) RSV (PCR) Last Vital Signs Temp 36.2 C L 10/04/24 12:22 Pulse 83 10/04/24 19:20 Resp 24 10/04/24 19:20 BP 139/63 10/04/24 19:15 Pulse Ox 93 10/04/24 19:20 Time Spent Time spent with Patient: >75 minutes Time was spent: preparing to see the patient(eg.review tests), obtaining and/or reviewing separately otained hiistory, ordering medications,tests, procedures, indepentently interpreting results, counseling the patient and care coordination
[2024-10-04 20:27] LABS: BE (Venous) 14 mmol/L (-2-3); HCO3 (Venous) 39 mmol/L (23-28); O2 Sat (Venous) 84 %; TCO2 (Venous) 34 mmol/L (24-29); pCO2 (Venous) 59 mmHg (41-51); pH (Venous) 7.43 (7.31-7.41); pO2 (Venous) 48 mmHg
--- NOTE | 2024-10-04 21:11 | RESPIRATORY ---
Pt arrived to ED with SOB. Pulmonary history showed asbestos-induced pleural plaque, restrictive lung disease, and COPD. Per provider notes from Jose Apodaca at Pulmonary clinic, pt currently is to use 2L O2 for nocturnal hypoxia, and 4L with exertion. Pt states he has his [employer] portable concentrator with him - in his car. Pt states that he wears the 2L at night routinely, and only uses the portable O2 when he feels he needs it. VBG on RT arrival to ED @ 1530 revealed PH 7.30 / CO2 75 / HCO3 37 Pt placed on BiPAP 10/5, 28%. Repeat VBG showed 7.33 / 74/ 39. BiPAP settings adjusted to 12/5, 28%. Repeat VBG @ 2100 showed PH 7.43 / 59 / 39. Pt taken off BiPAP and placed on 2L NC with SpO2 89-90%. Pt states his DME for his home oxygen is [employer].
[2024-10-04 21:31] LABS: TSH (W/Ref FT4) 0.76 uIU/mL (0.36-3.74)
[2024-10-04 21:50] LABS: Bilirubin Negative (Negative); Blood Trace-intact (Negative); Clarity Clear (Clear); Glucose Negative (Negative); Ketones Negative (Negative); Leukocyte Esterase Negative (Negative); Nitrite Negative (Negative); pH 5.5 (5-8)
[2024-10-04] MEDS: Enoxaparin 40 MG/0.4 ML SYR SC (21:54)
[2024-10-04] MEDS: Albuterol/Ipratropium 3 ML UPD VIAL UPD (21:56)
[2024-10-04 21:59] LABS: Bacteria Rare HPF (Negative); C & S Indicated? No; Casts Negative LPF (Negative); Crystals Negative HPF (Negative); Epithelial Cells Negative HPF (Negative); Mucus Negative (Negative); RBC Negative HPF (0-2); WBC 0-2 HPF (0-5)
[2024-10-05] VITALS (76 sets, daily range): BP systolic 106–153; BP diastolic 47–97; PULSE 78–104; RESP 3–29; TEMP 36.3–37; O2SAT 84–97
[2024-10-05] MEDS: methylPREDNISolone SUCC 40 MG VIAL 60 MG IVP ×2 (03:08→11:24)
[2024-10-05] MEDS: Albuterol/Ipratropium 3 ML UPD VIAL UPD ×3 (03:48→21:58)
[2024-10-05 05:34] LABS: BE (Venous) 11 mmol/L (-2-3); HCO3 (Venous) 36 mmol/L (23-28); O2 Sat (Venous) 90 %; TCO2 (Venous) 33 mmol/L (24-29); pCO2 (Venous) 59 mmHg (41-51); pH (Venous) 7.39 (7.31-7.41); pO2 (Venous) 61 mmHg
[2024-10-05 05:37] LABS: HCT 41.3 % (40.0-50.0); HGB 13.1 g/dL (13.5-17.5); MCH 31.6 pg (27.0-33.0); MCHC 31.7 % (32.0-36.0); MCV 100 fL (80-95); Platelet Count 171 10^3/uL (130-400); RBC 4.14 10^6/uL (4.36-5.78); RDW-SD 47.8 fL
[2024-10-05 06:00] LABS: ALT 27 U/L (16-63); AST 20 U/L (15-37); Albumin 2.9 g/dL (3.4-5.0); Alkaline Phosphatase 145 U/L (46-116); Anion Gap 3.5 mmol/L (3-11); BUN 28 mg/dL (7-18); Bilirubin, Total 0.48 mg/dL (0.2-1.0); CO2 35.5 mmol/L (21.0-32.0); CREATININE 1.4 mg/dL (0.70-1.30); Calcium 8.7 mg/dL (8.5-10.1); Chloride 102 mmol/L (98-107); Estimated GFR 49.56 (mL/min/1.73m2); Glucose 209 mg/dL (74-106); Magnesium 2.1 mg/dL (1.8-2.4); Potassium 4.6 mmol/L (3.5-5.1); Sodium 141 mmol/L (136-145); Total Protein 6.8 g/dL (6.4-8.2)
[2024-10-05] MEDS: Clopidogrel 75 MG TAB PO (08:16)
[2024-10-05] MEDS: Furosemide 20 MG TAB 10 MG PO (08:17)
[2024-10-05] MEDS: Aspirin E.C. 81 MG TABEC PO (08:18)
[2024-10-05] MEDS: Pregabalin 25 MG CAP PO (08:18)
[2024-10-05] MEDS: Normal Saline Flush 10 ML SYR IVP ×2 (11:24→21:59)
--- NOTE | 2024-10-05 12:56 | W.PC.ACHO ---
Registration Status: Primary Language: Preferred Language: ED Information & Data Chief Complaint Dizzy/Sync 10/04/24 13:23 Chief Complaint Dizzy/Sync 10/04/24 12:53 Triage Note Difficulty breathing, weak, 10/04/24 12:22 stumbling, mumbling for the past 3 days. State he has cardiac history, state he had a new pacer got changed 3 weeks ago, but since this past weekend he has been going down hill Medical / Surgical History (Last Reviewed 10/04/24 @ 20:23 by Miko Birmingham) Vitamin D deficiency (05/22/17) Calculus of kidney (05/22/17) Asbestosis (05/22/17) Prostate cancer, primary, with metastasis from prostate to other site Anemia Peripheral neuropathy Sick sinus syndrome Renal mass Thrombocytopenia Abdominal aortic aneurysm (Last Reviewed 10/04/24 @ 20:23 by Miko Birmingham) S/P coronary artery stent placement S/P arthroscopic knee surgery S/P prostatectomy S/P CABG x 4 S/P cervical discectomy S/P lumbar spine operation Hx of aortic valve replacement Most Recent Vital Signs Temperature 36.2 C L 10/04/24 12:22 Temperature Source Oral 10/04/24 12:22 Pulse 90 10/05/24 10:57 Pulse 95 H 10/05/24 08:10 Respiratory Rate 25 H 10/05/24 08:10 Respiratory Effort Short of Breath 10/04/24 13:25 Respiratory Depth Normal 10/04/24 13:25 Respiratory Pattern Normal 10/04/24 13:25 Blood Pressure 137/67 10/05/24 08:00 Blood Pressure Mean 92 10/05/24 08:00 Blood Pressure Position Sitting 10/04/24 12:22 Pulse Oximetry 93 10/05/24 10:57 Oxygen Delivery Method Nasal Cannula 10/05/24 10:57 Oxygen Flow Rate 2 10/05/24 10:57 Fraction of Inspired Oxygen (FIO2) 28 10/04/24 21:03 Comment desaturation down to 83% with minimal walking on room air 10/05/24 10:57 Comment 2LPM NC 10/05/24 06:20 Allergies olodaterol (From Stiolto Respimat) Adverse Reaction (Mild, Verified 10/04/24 13:18) Nausea tiotropium (From Stiolto Respimat) Adverse Reaction (Mild, Verified 10/04/24 13:18) Nausea Precautions Isolation Droplet precaution 10/04/24 13:23 Active Medications Generic Name Dose Route Start Last Admin Trade Name Taj PRN Reason Stop Dose Admin Albuterol/Ipratropium 3 ml 10/04/24 22:00 10/05/24 03:48 Albuterol/Ipratropium 3 Ml Upd Vial UPD 3 ml Q6H ALICIA Administration Aspirin 81 mg 10/05/24 08:30 10/05/24 08:18 Aspirin E.C. 81 Mg Tabec PO 81 mg DAILY ALICIA Administration Clopidogrel Bisulfate 75 mg 10/05/24 08:30 10/05/24 08:16 Clopidogrel 75 Mg Tab PO 75 mg DAILY ALICIA Administration Enoxaparin Sodium 40 mg 10/04/24 22:00 10/04/24 21:54 Enoxaparin 40 Mg/0.4 Ml Syr SC 40 mg HS ALICIA Administration Furosemide 10 mg 10/05/24 08:30 10/05/24 08:17 Furosemide 20 Mg Tab PO 10 mg DAILY ALICIA Administration Methylprednisolone Sodium Succinate 60 mg 10/05/24 02:00 10/05/24 11:24 Methylprednisolone Succ 40 Mg Vial IVP 60 mg Q8H ALICIA Administration Pregabalin 25 mg 10/05/24 08:30 10/05/24 08:30 Pregabalin 25 Mg Cap PO Not Given BID ALICIA Sodium Chloride 0 ml 10/04/24 20:00 10/05/24 11:24 Normal Saline Flush 10 Ml Syr IVP 10 ml BID ALICIA Administration IV IV Catheter Type [Right Peripheral IV Antecubital] IV Catheter Type [Left Wrist] Saline Lock IV Catheter Gauge [Right 18 Antecubital] IV Catheter Gauge [Left Wrist] 18 Diet Orders Category Date Time Status Diet [Regular/Normal] [DIET] Nutrition 10/05/24 Lunch Active Diagnostics 10/05/24 10/04/24 10/04/24 Range/Units 05:30 21:39 20:23 WBC 3.60 L (4.4-10.8) 10^3/uL RBC 4.14 L (4.36-5.78) 10^6/uL Hgb 13.1 L (13.5-17.5) g/dL Hct 41.3 (40.0-50.0) % MCV 100 H (80-95) fL MCH 31.6 (27.0-33.0) pg MCHC 31.7 L (32.0-36.0) % RDW 13.0 (11.8-14.1) % Plt Count 171 (130-400) 10^3/uL MPV 9.0 (8.0-11.0) fL Immature Gran % % Neutrophils % % Lymphocytes % % Monocytes % % Eosinophils % % Basophils % % Nucleated RBC % (0.0-0.3) % Absolute Neutrophils (1.2-6.7) 10^3/uL Absolute Lymphocytes (1.2-3.4) 10^3/uL Absolute Monocytes (0.1-0.8) 10^3/uL Absolute Eosinophils (0.0-0.7) 10^3/uL Absolute Basophils (0.0-0.2) 10^3/uL D-Dimer (<500) ng/mlFEU VBG pH 7.39 7.43 H (7.31-7.41) VBG pCO2 59 H 59 H (41-51) mmHg VBG pO2 61 48 mmHg VBG HCO3 36 H 39 H (23-28) mmol/L VBG Total CO2 33 H 34 H (24-29) mmol/L VBG O2 Saturation 90 84 % VBG Base Excess 11 H 14 H (-2-3) mmol/L Sodium 141 (136-145) mmol/L Potassium 4.6 (3.5-5.1) mmol/L Chloride 102 (98-107) mmol/L Carbon Dioxide 35.5 H (21.0-32.0) mmol/L Anion Gap 3.5 (3-11) mmol/L BUN 28 H (7-18) mg/dL Creatinine 1.4 H (0.70-1.30) mg/dL Est GFR (CKD-EPI 2020) 49.56 (mL/min/1.73m2) Glucose 209 H (74-106) mg/dL Calcium 8.7 (8.5-10.1) mg/dL Magnesium 2.1 (1.8-2.4) mg/dL Total Bilirubin 0.48 (0.2-1.0) mg/dL AST 20 (15-37) U/L ALT 27 (16-63) U/L Alkaline Phosphatase 145 H (46-116) U/L Troponin I (<or=76) ng/L NT-Pro-B Natriuret Pep (<300) pg/mL Total Protein 6.8 (6.4-8.2) g/dL Albumin 2.9 L (3.4-5.0) g/dL TSH 0.76 (0.36-3.74) uIU/mL Urine Color Yellow (Yellow) Urine Clarity Clear (Clear) Urine pH 5.5 (5-8) Ur Specific [place] 1.010 (1.005-1.025) Urine Protein Negative (Neg-Trace) mg/dL Urine Ketones Negative (Negative) mg/dL Urine Blood Trace-intact H (Negative) Urine Nitrite Negative (Negative) Urine Bilirubin Negative (Negative) Urine Urobilinogen 1.0 H (Up to 0.2) mg/dL Ur Leukocyte Esterase Negative (Negative) Urine RBC Negative (0-2) HPF Urine WBC 0-2 (0-5) HPF Ur Epithelial Cells Negative (Negative) HPF Urine Crystals Negative (Negative) HPF Urine Bacteria Rare (Negative) HPF Urine Casts Negative (Negative) LPF Urine Mucus Negative (Negative) Ur Culture Indicated? No Urine Glucose Negative (Negative) mg/dL COVID-19 Source SARS-CoV-2 (PCR) (Negative) Influenza Type A (PCR) (Negative) Influenza Type B (PCR) (Negative) RSV (PCR) (Negative) 10/04/24 10/04/24 10/04/24 Range/Units 16:41 15:30 14:42 WBC (4.4-10.8) 10^3/uL RBC (4.36-5.78) 10^6/uL Hgb (13.5-17.5) g/dL Hct (40.0-50.0) % MCV (80-95) fL MCH (27.0-33.0) pg MCHC (32.0-36.0) % RDW (11.8-14.1) % Plt Count (130-400) 10^3/uL MPV (8.0-11.0) fL Immature Gran % % Neutrophils % % Lymphocytes % % Monocytes % % Eosinophils % % Basophils % % Nucleated RBC % (0.0-0.3) % Absolute Neutrophils (1.2-6.7) 10^3/uL Absolute Lymphocytes (1.2-3.4) 10^3/uL Absolute Monocytes (0.1-0.8) 10^3/uL Absolute Eosinophils (0.0-0.7) 10^3/uL Absolute Basophils (0.0-0.2) 10^3/uL D-Dimer (<500) ng/mlFEU VBG pH 7.33 7.30 L (7.31-7.41) VBG pCO2 74 H* 75 H* (41-51) mmHg VBG pO2 30 38 mmHg VBG HCO3 39 H 37 H (23-28) mmol/L VBG Total CO2 36 H 35 H (24-29) mmol/L VBG O2 Saturation 53 67 % VBG Base Excess 13 H 11 H (-2-3) mmol/L Sodium (136-145) mmol/L Potassium (3.5-5.1) mmol/L Chloride (98-107) mmol/L Carbon Dioxide (21.0-32.0) mmol/L Anion Gap (3-11) mmol/L BUN (7-18) mg/dL Creatinine (0.70-1.30) mg/dL Est GFR (CKD-EPI 2020) (mL/min/1.73m2) Glucose (74-106) mg/dL Calcium (8.5-10.1) mg/dL Magnesium (1.8-2.4) mg/dL Total Bilirubin (0.2-1.0) mg/dL AST (15-37) U/L ALT (16-63) U/L Alkaline Phosphatase (46-116) U/L Troponin I 36 (<or=76) ng/L NT-Pro-B Natriuret Pep (<300) pg/mL Total Protein (6.4-8.2) g/dL Albumin (3.4-5.0) g/dL TSH (0.36-3.74) uIU/mL Urine Color (Yellow) Urine Clarity (Clear) Urine pH (5-8) Ur Specific [place] (1.005-1.025) Urine Protein (Neg-Trace) mg/dL Urine Ketones (Negative) mg/dL Urine Blood (Negative) Urine Nitrite (Negative) Urine Bilirubin (Negative) Urine Urobilinogen (Up to 0.2) mg/dL Ur Leukocyte Esterase (Negative) Urine RBC (0-2) HPF Urine WBC (0-5) HPF Ur Epithelial Cells (Negative) HPF Urine Crystals (Negative) HPF Urine Bacteria (Negative) HPF Urine Casts (Negative) LPF Urine Mucus (Negative) Ur Culture Indicated? Urine Glucose (Negative) mg/dL COVID-19 Source SARS-CoV-2 (PCR) (Negative) Influenza Type A (PCR) (Negative) Influenza Type B (PCR) (Negative) RSV (PCR) (Negative) 10/04/24 10/04/24 Range/Units 13:40 12:54 WBC 6.78 (4.4-10.8) 10^3/uL RBC 4.30 L (4.36-5.78) 10^6/uL Hgb 13.7 (13.5-17.5) g/dL Hct 44.0 (40.0-50.0) % MCV 102 H (80-95) fL MCH 31.9 (27.0-33.0) pg MCHC 31.1 L (32.0-36.0) % RDW 13.4 (11.8-14.1) % Plt Count 163 (130-400) 10^3/uL MPV 8.7 (8.0-11.0) fL Immature Gran % 0.3 % Neutrophils % 78.2 % Lymphocytes % 11.2 % Monocytes % 9.3 % Eosinophils % 0.7 % Basophils % 0.3 % Nucleated RBC % 0.0 (0.0-0.3) % Absolute Neutrophils 5.30 (1.2-6.7) 10^3/uL Absolute Lymphocytes 0.76 L (1.2-3.4) 10^3/uL Absolute Monocytes 0.63 (0.1-0.8) 10^3/uL Absolute Eosinophils 0.05 (0.0-0.7) 10^3/uL Absolute Basophils 0.02 (0.0-0.2) 10^3/uL D-Dimer 849 H (<500) ng/mlFEU VBG pH (7.31-7.41) VBG pCO2 (41-51) mmHg VBG pO2 mmHg VBG HCO3 (23-28) mmol/L VBG Total CO2 (24-29) mmol/L VBG O2 Saturation % VBG Base Excess (-2-3) mmol/L Sodium 143 (136-145) mmol/L Potassium 4.9 (3.5-5.1) mmol/L Chloride 104 (98-107) mmol/L Carbon Dioxide 36.6 H (21.0-32.0) mmol/L Anion Gap 2.4 L (3-11) mmol/L BUN 22 H (7-18) mg/dL Creatinine 1.0 (0.70-1.30) mg/dL Est GFR (CKD-EPI 2020) 74.21 (mL/min/1.73m2) Glucose 94 (74-106) mg/dL Calcium 8.8 (8.5-10.1) mg/dL Magnesium 2.2 (1.8-2.4) mg/dL Total Bilirubin 0.53 (0.2-1.0) mg/dL AST 23 (15-37) U/L ALT 34 (16-63) U/L Alkaline Phosphatase 153 H (46-116) U/L Troponin I 36 38 (<or=76) ng/L NT-Pro-B Natriuret Pep 717 H (<300) pg/mL Total Protein 7.2 (6.4-8.2) g/dL Albumin 3.1 L (3.4-5.0) g/dL TSH (0.36-3.74) uIU/mL Urine Color (Yellow) Urine Clarity (Clear) Urine pH (5-8) Ur Specific [place] (1.005-1.025) Urine Protein (Neg-Trace) mg/dL Urine Ketones (Negative) mg/dL Urine Blood (Negative) Urine Nitrite (Negative) Urine Bilirubin (Negative) Urine Urobilinogen (Up to 0.2) mg/dL Ur Leukocyte Esterase (Negative) Urine RBC (0-2) HPF Urine WBC (0-5) HPF Ur Epithelial Cells (Negative) HPF Urine Crystals (Negative) HPF Urine Bacteria (Negative) HPF Urine Casts (Negative) LPF Urine Mucus (Negative) Ur Culture Indicated? Urine Glucose (Negative) mg/dL COVID-19 Source Nasopharynx SARS-CoV-2 (PCR) Negative (Negative) Influenza Type A (PCR) Negative (Negative) Influenza Type B (PCR) Negative (Negative) RSV (PCR) Negative (Negative) Intake and Output - 24 Hour Total 10/04/24 12:14 thru 10/04/24 18:48 Output Total 1100 Balance -1100 Weight 86.183 kg Output: Urine 1100 Other: # Voids 4 Falls Risk Assessment History of Falls No History 10/04/24 13:24 Contributing Factors Impairments 10/04/24 13:24 Ambulatory Aids Uses ambulatory device + 10/04/24 13:24 Tubes/Lines With any additional score 10/04/24 13:24 Gait Evaluation No gait disturbance 10/04/24 13:24 Cognition No cognitive impairment 10/04/24 13:24 Fall Total Score 53 10/04/24 13:24 Level of Risk High Risk 10/04/24 13:24 Problems (Last Reviewed 10/04/24 @ 20:23 by Miko Birmingham) Acute on chronic respiratory failure with hypoxia and hypercapnia (Acute) Acute on chronic respiratory failure with hypoxia and hypercapnia (Acute) Presence of cardiac pacemaker (Chronic 05/22/17) Restrictive lung disease (Chronic) CAD (coronary artery disease) (Chronic) Notes 10/04/24 21:11 Respiratory by Payam Lewis Pt arrived to ED with SOB. Pulmonary history showed asbestos-induced pleural plaque, restrictive lung disease, and COPD. Per provider notes from Jose Apodaca at Pulmonary clinic, pt currently is to use 2L O2 for nocturnal hypoxia, and 4L with exertion. Pt states he has his [employer] portable concentrator with him - in his car. Pt states that he wears the 2L at night routinely, and only uses the portable O2 when he feels he needs it. VBG on RT arrival to ED @ 1530 revealed PH 7.30 / CO2 75 / HCO3 37 Pt placed on BiPAP 10/5, 28%. Repeat VBG showed 7.33 / 74/ 39. BiPAP settings adjusted to 12/5, 28%. Repeat VBG @ 2100 showed PH 7.43 / 59 / 39. Pt taken off BiPAP and placed on 2L NC with SpO2 89-90%. Pt states his DME for his home oxygen is [employer]. Initialized on 10/04/24 21:11 - END OF NOTE v v v v v v v v v Sending and/or Receiving Nurses: Please use comment section below to note any information pertinent to the patient hand-off not included above. Information / Comments: pt AxOx4 on arrival to floor, denies pain, BM once arrived, oriented to room and staff, on 3L weaned to 2L nc, steady on feet with walker in room. Report received from: Davida WILLARD in ED at 0955, pt brought up around 1005
--- NOTE | 2024-10-05 15:36 | W.PM.PROGNOT ---
Date of Service Date of service: 10/05/24 Time of Service: 15:37 Assessment and Plan Assessment and plan (1) Acute on chronic respiratory failure with hypoxia and hypercapnia: Status: Acute Assessment and plan: - still has increased O2 requirement compared to baseline - underlying treatment as noted below (2) Restrictive lung disease: Status: Chronic Assessment and plan: - acute exacerbation. has hx of asbestosis - currently on solumedrol 60mg q8h, will titrate down to q12h - has duonebs ordered q6h and prn albuterol. patient feels this is less effective but may benefit from having nebs at home. d/w him and daughter in room, will readdress prior to discharge - (3) CAD (coronary artery disease): Status: Chronic Assessment and plan: - continue current regimen as ordered (ASA/Plavix, Lipitor) Subjective Subjective Interval history since last seen: Seen and examined. Patient tells me he is feeling better today, notes that he feels the steroids have helped greatly and he usually desn't get these. In no distress. Vital stable, documented as 93% on 2L. Tells me he typically does not use O2 at rest but needs it qhs and with even mild activities. Exam Const General: cooperative, comfortable and no acute distress Orientation: alert, awake and oriented x3 Chest Chest: normal inspection of the chest Resp Other: very deminished with faint crackles, heard best at bases. no overt wheeze Cardio Rhythm: regular rhythm Heart Sounds: S1 normal and S2 normal GI Inspection: normal to inspection Palpation: firm Auscultation: normal bowel sounds Neuro Cranial Nerves: CN's II-XI intact bilaterally Objective Last Vital Signs Temp 37.0 C 10/05/24 14:58 Pulse 92 H 10/05/24 14:58 Resp 20 10/05/24 14:58 BP 136/97 H 10/05/24 14:58 Pulse Ox 93 10/05/24 14:58 Laboratory Results - last 24 hr 10/04/24 10/04/24 10/04/24 15:30 16:41 20:23 WBC RBC Hgb Hct MCV MCH MCHC RDW Plt Count MPV VBG pH 7.33 7.43 H VBG pCO2 74 H* 59 H VBG pO2 30 48 VBG HCO3 39 H 39 H VBG Total CO2 36 H 34 H VBG O2 Saturation 53 84 VBG Base Excess 13 H 14 H Sodium Potassium Chloride Carbon Dioxide Anion Gap BUN Creatinine Est GFR (CKD-EPI 2020) Glucose Calcium Magnesium Total Bilirubin AST ALT Alkaline Phosphatase Troponin I 36 Total Protein Albumin TSH 0.76 Urine Color Urine Clarity Urine pH Ur Specific [place] Urine Protein Urine Ketones Urine Blood Urine Nitrite Urine Bilirubin Urine Urobilinogen Ur Leukocyte Esterase Urine RBC Urine WBC Ur Epithelial Cells Urine Crystals Urine Bacteria Urine Casts Urine Mucus Ur Culture Indicated? Urine Glucose 10/04/24 10/05/24 21:39 05:30 WBC 3.60 L RBC 4.14 L Hgb 13.1 L Hct 41.3 MCV 100 H MCH 31.6 MCHC 31.7 L RDW 13.0 Plt Count 171 MPV 9.0 VBG pH 7.39 VBG pCO2 59 H VBG pO2 61 VBG HCO3 36 H VBG Total CO2 33 H VBG O2 Saturation 90 VBG Base Excess 11 H Sodium 141 Potassium 4.6 Chloride 102 Carbon Dioxide 35.5 H Anion Gap 3.5 BUN 28 H Creatinine 1.4 H Est GFR (CKD-EPI 2020) 49.56 Glucose 209 H Calcium 8.7 Magnesium 2.1 Total Bilirubin 0.48 AST 20 ALT 27 Alkaline Phosphatase 145 H Troponin I Total Protein 6.8 Albumin 2.9 L TSH Urine Color Yellow Urine Clarity Clear Urine pH 5.5 Ur Specific [place] 1.010 Urine Protein Negative Urine Ketones Negative Urine Blood Trace-intact H Urine Nitrite Negative Urine Bilirubin Negative Urine Urobilinogen 1.0 H Ur Leukocyte Esterase Negative Urine RBC Negative Urine WBC 0-2 Ur Epithelial Cells Negative Urine Crystals Negative Urine Bacteria Rare Urine Casts Negative Urine Mucus Negative Ur Culture Indicated? No Urine Glucose Negative Time Spent with Patient Time Spent with Patient: <25 minutes Time was spent: preparing to see the patient(eg.review tests), ordering medications,tests, procedures, counseling the patient and care coordination
--- NOTE | 2024-10-05 17:08 | PDOC.CMIN ---
Date of service: 10/05/24 Time of Service: 17:08 Care Management Initial Assmt Initial Assessment Reason for Hospitalization: Acute on chronic respiratory failure with hypoxia and hypercapnia Functional Status/Living Situation Patient Presentation: Ramón was sitting up on the edge of his bed eating dinner when CM met with him. He stated that he lives with his , Isabelle, and his daughter, Maddy in [place]. He reported that they moved here about five years ago, after their other daughter, Lisa, and their only grandchild moved to this area. He reported that Maddy helps with local driver, meals, and transportation. 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 He is independent with ADL's, and has good support from his daughter for IADLs. His daughter will transport him home upon discharge, and he did not identify any discharge needs. CM will continue to follow. Town of Residence: [facility] Resides with: Spouse (Isabelle) Significant Other/Family: Local Natural Supports: , Isabelle daughters, Lisa and Maddy Employment Status: Retired Instrumental Activities of Daily Living (ADLs): Independent Medications Medication Management: No Issues/Barriers identified Physical Functioning/Mobility Assistive Device: Uses O2 at night and as needed, 2L at baseline, through [employer]. Advance Directives Advance Directives: Do you have an Advance Directive: Y 10/03/17 12:49 AD On File at [facility]: N 10/03/17 12:49 Date Asked 10/04/24 10/04/24 12:26 AD Date Reviewed COLST On File at [facility] COLST Date Scanned Code Status Resuscitation Status Full Code Insurance Coverage/Financial Issues Insurance: [facility]/ Care Team Visit Care Team Role Provider Type Hakeem Kaur DO MD [facility] STAFF PHYSICIAN Wilber Luna Primary Care Provider NON-[facility] STAFF PHYSICIAN BERNADINE Carvajal Emergency Provider PHYSICIANS [employer] Miko Birmingham Admit Provider NON-[facility] STAFF PHYSICIAN Attending Provider Discharge Potential Discharge Needs: PCP F/U Appt Anticipated Barriers to Discharge: None Identified Patient/Family Education Needs: Review discharge instructions, discuss Ask Me Three Transportation: Private vehicle Plan: Anticipate Romaine will return home once medically cleared. He will transport home via private vehicle by family. He will follow up with his PCP and discharge plan of care. CM will continue to follow. Social Determinants of Health Screening Will the Patient Participate in the Screening?: Unable to obtain PFSH All Active Problems (Updated 10/04/24 @ 22:24 by Miko Birmingham) Acute on chronic respiratory failure with hypoxia and hypercapnia (Acute) Acute on chronic respiratory failure with hypoxia and hypercapnia (Acute) Chronic hypoxic respiratory failure (Chronic) Asbestos-induced pleural plaque (Acute) Lumbar stenosis (Acute) 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 COPD (chronic obstructive pulmonary disease) (Chronic) Pseudophakia (Acute) Chronic kidney disease (CKD) (Chronic) BMI 30.0-30.9,adult (Acute) Prediabetes (Acute) Mild memory disturbance (Acute) Dyspnea on exertion (Acute) Acute hypotension (Acute) Closed head injury (Acute) Medical History Vitamin D deficiency (05/22/17) Calculus of kidney (05/22/17) Asbestosis (05/22/17) Prostate cancer, primary, with metastasis from prostate to other site Anemia Peripheral neuropathy Sick sinus syndrome Renal mass Thrombocytopenia Abdominal aortic aneurysm Surgical History S/P coronary artery stent placement S/P arthroscopic knee surgery S/P prostatectomy S/P CABG x 4 S/P cervical discectomy S/P lumbar spine operation Hx of aortic valve replacement Family History Mother Essential hypertension Congestive heart failure Father Diabetes Stroke Social History Smoking/Tobacco Use Status: Former Tobacco Use Smoking risk assessment performed?: Yes Alcohol Intake: current Alcohol Intake frequency: a few times a month Drug use: Never Substance use type: does not use Household members: spouse 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
[2024-10-05] MEDS: diphenhydrAMINE 25 MG CAP PO (19:47)
[2024-10-05] MEDS: guaiFENesin 600 MG TABCR 1200 MG PO (19:47)
[2024-10-05] MEDS: Acetaminophen 325 MG TAB 650 MG PO (19:47)
[2024-10-05] MEDS: Atorvastatin 40 MG TAB PO (19:47)
[2024-10-05] MEDS: methylPREDNISolone SUCC 125 MG VIAL 60 MG IVP (21:58)
[2024-10-06] VITALS (8 sets, daily range): BP systolic 115; BP diastolic 57; PULSE 78–90; RESP 4–20; TEMP 35.8; O2SAT 77–100
[2024-10-06 07:03] LABS: Abs Immature Grans 0.04 10^3/uL (0.0-0.06); Absolute Basophil Count 0.01 10^3/uL (0.0-0.2); Absolute Lymphocyte Count 0.35 10^3/uL (1.2-3.4); Absolute Monocyte Count 0.17 10^3/uL (0.1-0.8); Absolute Neutrophil Count 13.32 10^3/uL (1.2-6.7); Basophils % 0.1 %; HCT 41.8 % (40.0-50.0); HGB 13.1 g/dL (13.5-17.5); Immature Grans % 0.3 %; Lymphocytes % 2.5 %; MCH 31.4 pg (27.0-33.0); MCHC 31.3 % (32.0-36.0); MCV 100 fL (80-95); MPV 9.2 fL (8.0-11.0); Monocytes % 1.2 %; Neutrophils % 95.9 %; Platelet Count 193 10^3/uL (130-400); RBC 4.17 10^6/uL (4.36-5.78); RDW 13.1 % (11.8-14.1); RDW-SD 48.2 fL; WBC 13.89 10^3/uL (4.4-10.8)
[2024-10-06 07:20] LABS: ALT 25 U/L (16-63); AST 16 U/L (15-37); Alkaline Phosphatase 135 U/L (46-116); Anion Gap 2.6 mmol/L (3-11); BUN 49 mg/dL (7-18); Bilirubin, Total 0.39 mg/dL (0.2-1.0); CO2 37.4 mmol/L (21.0-32.0); CREATININE 1.4 mg/dL (0.70-1.30); Calcium 8.9 mg/dL (8.5-10.1); Chloride 101 mmol/L (98-107); Estimated GFR 49.56 (mL/min/1.73m2); Glucose 181 mg/dL (74-106); Magnesium 2.6 mg/dL (1.8-2.4); Potassium 4.8 mmol/L (3.5-5.1); Sodium 141 mmol/L (136-145)
[2024-10-06] MEDS: Furosemide 20 MG TAB 10 MG PO (09:00)
[2024-10-06] MEDS: Clopidogrel 75 MG TAB PO (09:00)
[2024-10-06] MEDS: Aspirin E.C. 81 MG TABEC PO (09:00)
[2024-10-06] MEDS: guaiFENesin 600 MG TABCR 1200 MG PO (09:01)
[2024-10-06] MEDS: Normal Saline Flush 10 ML SYR IVP (09:01)
[2024-10-06] MEDS: methylPREDNISolone SUCC 125 MG VIAL 60 MG IVP (09:03)
--- NOTE | 2024-10-06 10:43 | PDOC.CMDIS ---
Date of service: 10/06/24 Time of Service: 10:43 LACE Index Scoring Tool Questions: Length of Stay (in days): 2 Was the patient admitted via the E.D.?: Yes Comorbidities: Chronic Pulmonary Disease and Liver or Renal Disease E.D. Visits: 1 Answers: Total Score: 11 Risk of Readmission: High Risk Care Management Discharge Plan Reason for Hospitalization: Acute on chronic respiratory failure with hypoxia and hypercapnia Discharge Plan: Discharge home via private vehicle with family. Follow up with PCP and discharge plan of care as directed. No new services are ordered prior to discharge. Patient/Family Education Needs: Review discharge instructions, limitations, medications and plan to follow up with community providers. Discuss ask me three. SDOH Health Related Social Needs: No Data to Display
--- NOTE | 2024-10-06 11:42 | W.PM.DS.N ---
Date of service: 10/06/24 Time of Service: 11:42 DS: Diagnosis Discharge Diagnosis (1) Acute on chronic respiratory failure with hypoxia and hypercapnia: Status: Acute (2) Restrictive lung disease: Status: Chronic (3) CAD (coronary artery disease): Status: Chronic Discharge Plan Disposition Patient Disposition: Home Condition: Stable Discharge Details Reason For Visit: Diff breathing/weak/palpatations Admit Date/Time: 10/04/24 20:50 Admit Provider: Miko Birmingham Attending Provider: Miko Birmingham Primary Care Provider: Wilber Luna Hospital Course Hospital Course: Per H+P: This is an 83-year-old male patient who 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 He does have COPD but mostly restrictive lung disease with asbestosis. He chronically is on oxygen at night and does wear during the day as needed. Recently he has had increased needs for oxygen during the day and this has been worsening over the last 2 weeks. He has had no fever or upper respiratory symptoms to indicate viral infection and that is influenza/COVID/RSV screening was negative. Chest x-ray also did not reveal any acute process. He did require BiPAP with CO2 retention though he was not necessarily confused and does not have CPAP or BiPAP at home. At the time I saw the patient he was off BiPAP on oxygen and speaking in short sentences but comfortable. He was not pursed-lip breathing. Patient lives with his and daughter who brought him to the ED for evaluation. He denies any chest pain with his shortness of breath and mostly had exertional dyspnea. He is disabled by his respiratory symptoms. He was given Solu-Medrol in the ED and did respond to nebulizers and BiPAP. His VBG did show improvement of possible overtreatment of his chronic hypercapnic respiratory failure. His oxygen will be adjusted and BP follow-up as needed. Will be admitted for treatment of his acute exacerbation of COPD and chronic restrictive lung disease with hypoxemia worsening requiring increased oxygen and support. He is a full code. Patient was treated with IV solumedrol along with albuterol nebs, which he felt was helpful. O2 was titrated down as able, and he was down to 1L on 10/06. He will typically be on RA at home at rest but requires 2L qhs and 4L with activity. He remained afebrile with normal labs, did not require abx. Using Acapella device with good results. On 10/06, patient requested to be discharged. He was improved and was changed over to a rapid prednisone taper. 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 I did rx albuterol for him to use prn. Can follow with PCP and follows with local pulmonology as outpatient. Home Meds and New Rx's Prescriptions: New albuterol sulfate 2.5 mg /3 mL (0.083 %) Solution For Nebulization 2.5 mg UPD Q4H PRN PRN (Reason: shortness of breath or wheezing) Qty: 90 0RF prednisone 10 mg tablet See Taper PO DIRECTED Qty: 21 0RF Taper: Prednisone 10mg taper 60 mg Daily for 1 Day and 0 Hour 50 mg Daily for 1 Day and 0 Hour 40 mg Daily for 1 Day and 0 Hour 30 mg Daily for 1 Day and 0 Hour 20 mg Daily for 1 Day and 0 Hour 10 mg Daily for 1 Day and 0 Hour Rx Instructions: see taper instructions Continued gabapentin 100 mg capsule 100 mg PO BID nitroglycerin 0.4 mg tablet, sublingual 0.4 mg sublingual Q5M PRN Rx Instructions: do not exceed 3 doses per episode clopidogrel 75 mg tablet 75 mg PO DAILY triamcinolone acetonide 0.1 % cream 1 applic topical BID PRN pregabalin 25 mg capsule 25 mg PO .COMPLEX Qty: 60 3RF Rx Instructions: 25 mg orally HS x 1week, then BID; furosemide 20 MG tablet 10 mg PO DAILY atorvastatin [Lipitor] 40 MG tablet 40 mg PO HS acetaminophen 325 MG tablet 650 mg PO Q6H PRN aspirin 81 mg Tablet,Delayed Release (Dr/Ec) 81 mg PO DAILY diphenhydramine-acetaminophen [Tylenol PM Extra Strength] 25-500 mg Tablet 1 tab PO QHS PRN Discharge Instructions Referrals: Wilber Luna [Primary Care Provider] - Activity:: use 4L O2 with activity Equipment/Supplies:: nebulizer with tubing Diet:: Normal Diet Discharge Orders Discharge Orders: Discharge Order (Routine); Ordered 10/06/24 Ordered By: Hakeem Kaur DS: Summary Time Spent with Patient providing and/or coordinating discharge services: Greater than 30 minutes Status at Discharge Functional status at discharge: independent ambulation Overall status at discharge: patient is back to baseline Mental Status: mental status grossly normal Speech and Movement: speech and movement normal Mood: congruent mood Affect: normal affect Quality:SDOH Health Related Social Needs: No Data to Display Exam Const General: cooperative, comfortable and no acute distress Orientation: alert, awake and oriented x3 Chest Chest: normal inspection of the chest Resp Other: diminished in all robles with faint crackle at bases (suspect this is baseline) Cardio Rate: regular rate Rhythm: regular rhythm Heart Sounds: S1 normal and S2 normal GI Inspection: normal to inspection Palpation: soft and nontender Percussion: normal to percussion Auscultation: normal bowel sounds Neuro Cranial Nerves: CN's II-XI intact bilaterally Extrem General: normal to inspection Psych Mental Status: mental status grossly normal Speech and Movement: speech and movement normal Mood: congruent mood Affect: normal affect DS: Data Vitals/I&O Vitals and I&O: Vital Signs Temperature 35.8 C L 10/06/24 03:44 Temperature Source Temporal Artery Scan 10/06/24 03:44 Pulse 78 10/06/24 03:44 Pulse 95 H 10/05/24 08:10 Respiratory Rate 16 10/06/24 03:44 Respiratory Effort Short of Breath 10/04/24 13:25 Respiratory Depth Normal 10/04/24 13:25 Respiratory Pattern Normal 10/04/24 13:25 Blood Pressure 115/57 L 10/06/24 03:44 Blood Pressure Mean 92 10/05/24 08:00 Blood Pressure Position Sitting 10/04/24 12:22 Pulse Oximetry 93 10/06/24 09:33 Oxygen Delivery Method Nasal Cannula 10/06/24 09:33 Oxygen Flow Rate 1 10/06/24 09:33 Fraction of Inspired Oxygen (FIO2) 28 10/06/24 09:26 Pain Level 0 10/06/24 03:44 Comment with ambulation 10/06/24 09:15 Comment 2LPM NC 10/05/24 06:20 Intake & Output 10/05/24 10/05/24 10/06/24 11:59 23:59 11:59 Intake Total 200 / 200 Output Total 500 / 500 615 / 615 Balance -300 / -300 -615 / -615 Intake: Oral 200 / 200 Output: Urine 500 / 500 615 / 615 Other: Urine Color Yellow Straw Yellow Urine Appearance Clear Clear Clear Urine Odor None None None Comment x1 in toilet Stool Size Moderate Stool Characteristics Formed Brown Data Completed and Pending Labs on day of discharge: Labs from last 24 hours 10/06/24 06:18 WBC 13.89 H RBC 4.17 L Hgb 13.1 L Hct 41.8 MCV 100 H MCH 31.4 MCHC 31.3 L RDW 13.1 Plt Count 193 MPV 9.2 Immature Gran % 0.3 Neutrophils % 95.9 Lymphocytes % 2.5 Monocytes % 1.2 Eosinophils % 0.0 Basophils % 0.1 Nucleated RBC % 0.0 Absolute Neutrophils 13.32 H Absolute Lymphocytes 0.35 L Absolute Monocytes 0.17 Absolute Eosinophils 0.00 Absolute Basophils 0.01 Sodium 141 Potassium 4.8 Chloride 101 Carbon Dioxide 37.4 H Anion Gap 2.6 L BUN 49 H Creatinine 1.4 H Est GFR (CKD-EPI 2020) 49.56 Glucose 181 H Calcium 8.9 Magnesium 2.6 H Total Bilirubin 0.39 AST 16 ALT 25 Alkaline Phosphatase 135 H Total Protein 7.0 Albumin 3.0 L PFSH All Active Problems (Updated 10/04/24 @ 22:24 by Miko Birmingham) Acute on chronic respiratory failure with hypoxia and hypercapnia (Acute) Acute on chronic respiratory failure with hypoxia and hypercapnia (Acute) Chronic hypoxic respiratory failure (Chronic) Asbestos-induced pleural plaque (Acute) Lumbar stenosis (Acute) 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 COPD (chronic obstructive pulmonary disease) (Chronic) Pseudophakia (Acute) Chronic kidney disease (CKD) (Chronic) BMI 30.0-30.9,adult (Acute) Prediabetes (Acute) Mild memory disturbance (Acute) Dyspnea on exertion (Acute) Acute hypotension (Acute) Closed head injury (Acute) Medical History Vitamin D deficiency (05/22/17) Calculus of kidney (05/22/17) Asbestosis (05/22/17) Prostate cancer, primary, with metastasis from prostate to other site Anemia Peripheral neuropathy Sick sinus syndrome Renal mass Thrombocytopenia Abdominal aortic aneurysm Surgical History S/P coronary artery stent placement S/P arthroscopic knee surgery S/P prostatectomy S/P CABG x 4 S/P cervical discectomy S/P lumbar spine operation Hx of aortic valve replacement Family History Mother Essential hypertension Congestive heart failure Father Diabetes Stroke Social History Smoking/Tobacco Use Status: Former Tobacco Use Smoking risk assessment performed?: Yes Alcohol Intake: current Alcohol Intake frequency: a few times a month Drug use: Never Substance use type: does not use Household members: spouse Housing: house 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
[2024-10-06] MEDS: Albuterol/Ipratropium 3 ML UPD VIAL UPD (11:47)
--- NOTE | 2024-10-06 12:43 | RESPIRATORY ---
Addendum entered by Nurys Luna 10/11/24 15:46: 10/11/24-Pt called to advised he hadn't received his nebulizer machine [facility]. I have reached out to [facility] to inquire on the status of the shipment as the order was accepted and processed on 10/06 through [facility]. Informed patient we would call him back to update him once we had more information for him. Original Note: Pt set up with new home neulizer machine today through [employer]. [facility] is also his current oxygen DME with RA @ rest / 2L @ night / 4L with exertion. Nebulized Albuterol prescription sent to patient's regular pharmacy by Dr. Kaur.
== END 2024-10-06 14:04 | disposition home or self-care (01) | DRG 190 ==
LOC: ER 18:12 → EDHOLD 21:12 → MS 10-06 03:47
PROVIDERS: Physician Assistant; Admitting Provider Family Medicine; Emergency Provider Physician Assistant; PCP Student in an Organized Health Care Education/Training Program; Responsible Provider Hospitalist; Visit Provider Family Medicine
DX: J44.1 Chronic obstructive pulmonary disease with (acute) exacerbation (principal); J96.21 Acute and chronic respiratory failure with hypoxia; J96.22 Acute and chronic respiratory failure with hypercapnia; J94.8 Other specified pleural conditions; C79.9 Secondary malignant neoplasm of unspecified site; J61 Pneumoconiosis due to asbestos and other mineral fibers; J98.4 Other disorders of lung; I25.10 Atherosclerotic heart disease of native coronary artery without angina pectoris; Z87.891 Personal history of nicotine dependence; Z99.81 Dependence on supplemental oxygen; E11.42 Type 2 diabetes mellitus with diabetic polyneuropathy; Z95.1 Presence of aortocoronary bypass graft; E78.5 Hyperlipidemia, unspecified; E11.22 Type 2 diabetes mellitus with diabetic chronic kidney disease; N18.9 Chronic kidney disease, unspecified; E55.9 Vitamin D deficiency, unspecified; D64.9 Anemia, unspecified; D69.6 Thrombocytopenia, unspecified; Z95.5 Presence of coronary angioplasty implant and graft; Z85.46 Personal history of malignant neoplasm of prostate; Z95.4 Presence of other heart-valve replacement; I71.40 Abdominal aortic aneurysm, without rupture, unspecified
CPT/HCPCS: 00123; 36415; 71275; 80053; 82805; 85027; 87637; 93005; 94761; 96374; 96375; 99285; J1650; 71046; 81003; 81015; 83735; 83880; 84443; 84484; 85025; 85379; 93010; 94640; 94660; 94667; 94668; 99223; 99231; 99239; J1940; J2919; J3490; J7620

== ENCOUNTER 2024-10-18 02:58 | Outpatient (CLI) | payer MEDICARE, BC, SELFPAY ==
--- NOTE | 2024-10-06 15:29 | CHAPLAIN ---
Romaine was up in the chair, dressed in his own clothes, when I visited. His daughter was with him. They were waiting for the final pieces of his discharge to be completed. I explained my role and offered support.
--- NOTE | 2024-10-18 09:30 | DI.US_ITS ---
APPROVED REPORT EXAM: Comprehensive 2D, Doppler, and color-flow Echocardiogram Patient Location: Out-Patient Grain Mixer: Bulmaro Khan RDCS (AE) Indications: MINOR, aortic valve replacement Other Information Study Quality: Fair Conclusion Normal left ventricular wall thickness and chamber size. Ejection fraction is 60%. Wall motion is n ormal Right ventricular size and function is normal Both atria are normal in size Device lead noted in the right heart There is a bioprosthetic aortic valve replacement. There is no aortic regurgitation. Mean gradient is 11 mmHg Mild tricuspid regurgitation with estimated right ventricular systolic pressure of 47 mmHg Wall motion Left Ventricle The left ventricle is normal size. Left ventricular systolic function is normal. The left ventricular ejection fraction is within the normal range. There is normal left ventricular wall thickness. There is normal LV segmental wall motion. There is no ventricular septal defect visualized. LVEF is 60%. Right Ventricle The right ventricle is normal size. The right ventricular systolic function is normal. Pacemaker lead is present in the right ventricle. Atria The left atrium size is normal. The right atrium size is normal. The interatrial septum is intact wit h no evidence for an atrial septal defect. Aortic Valve Bioprosthetic aortic valve is present. Mean gradient is 11 mmHg No aortic regurgitation is present. Mitral Valve The mitral valve is normal in structure. No evidence of mitral valve stenosis. There is no mitral madison ve regurgitation noted. Tricuspid Valve The tricuspid valve is normal in structure. There is no tricuspid valve stenosis. mild tricuspid reg urgitation. The RVSP is 47.3 mmHg. Pulmonic Valve The pulmonary valve is normal in structure. There is no pulmonic valvular stenosis. There is no pulmo cornell valvular regurgitation. Great Vessels The aortic root is normal in size. The ascending aorta is normal in size. Aortic arch is not well vis ualized. IVC is normal in size and collapses >50% with inspiration. Pericardium There is no pericardial effusion. 2D Dimensions IVSD d PLAX 1.08 cm M: 0.6-1.2 Ao Root d 1.77 cm M: 3.1 - 3.7 LVPW d PLAX 1.11 cm M: 0.6 - 1.2 Ao Asc Diam d 3.17 cm M: 2.6 - 3.4 LVID d PLAX 4.93 cm M: 4.2 - 5.8 LVDs 3.34 cm M: 2.5 - 4.0 LV EF Teichholz 60.2 % FS 32.21 % LV EDV (Teich) 114.4 mL LV ESV (Teich) 45.5 mL Stroke Vol Index (Teich) 34.79 M-Mode TAPSE 2.00 cm (M/F) >1.7 Auto EF LV EDV A4C 81.1 mL LV EDV A2C 111.6 mL LV EDV BP 95.9 mL LV ESV A4C 32.3 mL LV ESV A2C 44.4 mL LV ESV BP 37.1 mL LVEF(%) A4C 60.2 % LVEF(%) A2C 60.2 % LVEF(%) BP 61.3 % LV SV A4C 48.8 ml LV SV A2C 67.2 ml LV SV BP 58.8 ml LV CO A4C 3.7 L/min LV CO A2C 5.4 L/min LV CO BP 4.6 L/min HR A4C 76.57 BPM HR A2C 80.15 BPM LV EDV Index (BP) LA Volume LA Length A4C 4.2 cm LA Length A2C 5.2 cm LA Area A4C s 9.78 cm2 LA Area A2C s 17.60 cm2 LA Vol A4C A-L 19.42 mL LA Vol A2C A-L 50.93 mL LA Vol Biplane A-L 35.0 mL LA Vol/BSA A4C A-L LA Vol/BSA A2C A-L LA Vol/BSA BP A-L 17.7 mL/m2 LA Vol A4C MOD 19.7 mL LA Vol A2C MOD 48.4 mL LA Vol BP MOD 33.9 mL RA Volume RA Area A4C 10.6 cm2 RA ESV A4C (A-L) 24.8mL RA Vol/BSA A4C A-L RA Length A4C 3.8 cm RA ESV A4C (MOD) 23.1mL LV Diastology MV E' medial 0.061 (>0.07 m/s) MV E Vmax 0.85 (0.4-1.3 m/s) MV E/E' MED 13.89 (<14) MV A Vmax 1.25 (0.4-1.3 m/s) MV E' lateral 0.069 (>0.1 m/s) E/A Ratio 0.7 MV E/E' LAT 12.32 (<14) MV E' Average 0.065 m/s MV E/E'(average) 13.06 Aortic Valve AoV Vmax 2.25 m/s LVOT Vmax 1.10 m/s AoV Peak Grad 20.2 mmHg LVOT Peak Grad 4.8 mmHg AoV Area (Vmax) 1.01 cm2 LVOT VTI 0.220 m AoV VTI 0.461 m LVOT Mean Grad 2.9 mmHg AoV Mean Nj. 1.53 m/s LVOT SV 45.62 mL AoV Mean Grad 10.8 mmHg LVOT Diam s 1.60 cm AoV Area (VTI) 0.99 cm2 AV Regurg Peak Gr. 20.22 mmHg Velocity Ratio 0.49 Mitral Valve MV Vmax TIPS 1.17 m/s MV Mean Grad 2.2 (<2mmHg) MV VTI 0.284 m Pulmonary Valve PV Vmax 1.07 (0.5-1.5 m/s) RVOT Vmax 0.53 m/s PV Peak Grad 4.6 mmHg RVOT Peak Gr. 1.1 mmHg PV Mean Nj 0.69 m/s RVOT VTI 0.108 m PV Mean Grad 2.2 mmHg RVOT Mean Gr. 0.6 mmHg Tricuspid Valve RA Pressure 3.00 mmHg TR Vmax 3.33 m/s TR Peak Grad 44.2 mmHg RVSP (TR) 47.3 mmHg
== END 2024-10-18 03:18 ==
LOC: DI 02:58
PROVIDERS: PCP Student in an Organized Health Care Education/Training Program; Visit Provider Internal Medicine Cardiovascular Disease
DX: R06.09 Other forms of dyspnea (principal); I36.1 Nonrheumatic tricuspid (valve) insufficiency; Z95.5 Presence of coronary angioplasty implant and graft
CPT/HCPCS: 93306

== ENCOUNTER → 2024-11-09 11:03 | Outpatient (BNVA) | payer MEDICARE, BC, SELFPAY | PROVIDERS: PCP Student in an Organized Health Care Education/Training Program; Referring Provider Student in an Organized Health Care Education/Training Program; Visit Provider Physician Assistant Surgical | DX: J44.9 Chronic obstructive pulmonary disease, unspecified (principal); J96.11 Chronic respiratory failure with hypoxia; J98.4 Other disorders of lung; J92.0 Pleural plaque with presence of asbestos; I27.20 Pulmonary hypertension, unspecified; Z87.891 Personal history of nicotine dependence; Z99.81 Dependence on supplemental oxygen | CPT/HCPCS: 94618; 99214 ==

== ENCOUNTER 2024-11-16 02:37 | Outpatient (CLI) | payer MEDICARE, BC, SELFPAY ==
[2024-11-16] MEDS: Inhaler, Assist Device 1 EACH MC (11:58)
[2024-11-16] MEDS: Levalbuterol HFA 15 GM INH 4 PUFF IH (11:59)
--- NOTE | 2024-11-30 14:41 | W.PFT ---
Date of service: 11/16/24 Time of Service: 10:04 Pulmonary Function Test Result Indications: COPD Interpretation Spirometry: There is severe airflow obstructionand restriction present. No bronchodilator response. Lung Volumes: Moderate restrictive lung disease Diffusion Capacity: Decreased diffusion Airway Pressure: Normal airways resistance Impression Mixed obstructive and restrictive lung disease with a reduced diffusion Clinical Correlation therefore is recommended.
== END 2024-11-16 02:38 | disposition home or self-care (01) ==
LOC: RT 02:40
PROVIDERS: PCP Student in an Organized Health Care Education/Training Program; Visit Provider Student in an Organized Health Care Education/Training Program
DX: J44.89 Other specified chronic obstructive pulmonary disease (principal)
CPT/HCPCS: 94060; 94726; 94729

== ENCOUNTER 2025-01-31 15:21 | Inpatient (IN) | payer MEDICARE, BC, SELFPAY ==
[2025-01-31] VITALS (91 sets, daily range): BP systolic 72–190; BP diastolic 35–89; PULSE 53–128; RESP 16–38; TEMP 36.6–38.1; O2SAT 90–100
--- NOTE | 2025-01-31 15:00 | RT.EKG_ITS ---
APPROVED REPORT Exam: Resting ECG Reason for Exam: Weakness Patient Location: E HR:93 bpm ECG Measurements Heart Rate 93 AXIS ND 142 P 66 QRSd 147 QRS -53 QT 382 T 106 QTc 475 Conclusion Atrial-sensed ventricular-paced rhythm...ventricular pacing tracks p-waves I have reviewed and interpreted ECG and agree with software generated interpretation.
[2025-01-31 15:57] LABS: BE (Venous) 6 mmol/L (-2-3); HCO3 (Venous) 32 mmol/L (23-28); Lactate 0.9 mmol/L (<or=2.0); O2 Sat (Venous) 72 %; TCO2 (Venous) 30 mmol/L (24-29); pH (Venous) 7.32 (7.31-7.41); pO2 (Venous) 42 mmHg
[2025-01-31 15:59] LABS: Abs Immature Grans 0.03 10^3/uL (0.0-0.06); Absolute Basophil Count 0.02 10^3/uL (0.0-0.2); Absolute Eosinophil Count 0.01 10^3/uL (0.0-0.7); Absolute Lymphocyte Count 0.21 10^3/uL (1.2-3.4); Absolute Monocyte Count 0.18 10^3/uL (0.1-0.8); Absolute Neutrophil Count 3.35 10^3/uL (1.2-6.7); Basophils % 0.5 %; Eosinophils % 0.3 %; HCT 38.6 % (40.0-50.0); HGB 12.6 g/dL (13.5-17.5); Immature Grans % 0.8 %; Lymphocytes % 5.5 %; MCH 31.1 pg (27.0-33.0); MCHC 32.6 % (32.0-36.0); MCV 95 fL (80-95); MPV 9.3 fL (8.0-11.0); Monocytes % 4.7 %; Neutrophils % 88.2 %; RBC 4.05 10^6/uL (4.36-5.78); RDW 15.5 % (11.8-14.1); RDW-SD 55.1 fL
[2025-01-31 16:01] LABS: pCO2 (Venous) 63 mmHg (41-51)
[2025-01-31 16:13] LABS: INR 1.1 (0.9-1.1); PTT Activated 22.5 sec (20.6-30.2); Prothrombin Time 10.8 sec (9.1-11.1)
[2025-01-31 16:16] LABS: Platelet Count 80 10^3/uL (130-400)
[2025-01-31] MEDS: ACETAMINOPHEN 1,000 MG/100 ML BAG 1000 MG (16:19)
[2025-01-31] MEDS: PIPERACILLIN/TAZO 4.5 GM in Normal Saline 100 ML IVPB (16:21)
[2025-01-31 16:25] LABS: ALT 53 U/L (16-63); AST 54 U/L (15-37); Albumin 3.4 g/dL (3.4-5.0); Alkaline Phosphatase 179 U/L (46-116); Anion Gap 4.7 mmol/L (3-11); BUN 19 mg/dL (7-18); Bilirubin, Total 0.9 mg/dL (0.2-1.0); CO2 32.3 mmol/L (21.0-32.0); Calcium 8.4 mg/dL (8.5-10.1); Chloride 101 mmol/L (98-107); Estimated GFR 73.76 (mL/min/1.73m2); Glucose 129 mg/dL (74-106); Potassium 4.5 mmol/L (3.5-5.1); Sodium 138 mmol/L (136-145); TSH (W/Ref FT4) 0.46 uIU/mL (0.36-3.74); Total Protein 6.4 g/dL (6.4-8.2); Troponin I 12 ng/L (<or=76)
[2025-01-31] MEDS: DOXYCYCLINE 100 MG in Normal Saline 100 ML IVPB (16:43)
[2025-01-31 16:45] LABS: Bilirubin Negative (Negative); Blood Trace-intact (Negative); Clarity Clear (Clear); Glucose Negative (Negative); Ketones 15 mg/dL (Negative); Leukocyte Esterase Negative (Negative); Nitrite Negative (Negative)
[2025-01-31 16:53] LABS: Bacteria Negative HPF (Negative); C & S Indicated? No; Casts Negative LPF (Negative); Crystals Negative HPF (Negative); Epithelial Cells Rare HPF (Negative); Mucus Negative (Negative); Other Cells Rare Transitional (Negative); WBC 0-2 HPF (0-5)
--- NOTE | 2025-01-31 17:00 | DI.CT_ITS ---
Exam(s) CT HEAD WO EXAM: CT HEAD WO CLINICAL HISTORY: headache, eval for bleed vs mass. TECHNIQUE: Imaging Protocol: Axial computed tomography images with coronal and sagittal reformatted images were created and reviewed COMPARISON: CT CT HEAD CERVICAL SPINE WO from 01/24/2021 FINDINGS: Ventricles and Extra axial spaces: Normal in size and morphology for the patient's age. Hemorrhage: None. Cerebral parenchyma: There are areas of decreased attenuation in the white matter most consistent with chronic microvascular ischemic disease. There is no evidence of an acute territorial infarct or mass effect. Midline shift: None. Brainstem/Cerebellum: Normal. Calvarium: Normal. Visualized Paranasal sinuses/Mastoids: Clear. Soft Tissues: Unremarkable. IMPRESSION: No acute intracranial process. RADIATION DOSE DELIVERED: 854.15mGy.cm Total DLP DATA REPOSITORY: All CT scans at this facility are submitted to the National Radiology Data Registry (NRDR) Dose Index Registry (DIR) with the [employer] (ACR). RADIATION OPTIMIZATION: All CT scans at this facility use at least one of these dose optimization techniques: automated exposure control; mA and/or kV adjustment per patient size (includes targeted exams where dose is matched to clinical indication); or iterative reconstruction.
[2025-01-31 17:06] LABS: Troponin I 14 ng/L (<or=76)
--- NOTE | 2025-01-31 17:11 | DI.CT_ITS ---
Exam(s) CT CHEST/ABD/PEL WO EXAM: CT CHEST/ABD/PEL WO CLINICAL HISTORY: vomiting, fever, LLQ pain TECHNIQUE: Imaging Protocol: Axial computed tomography images with coronal and sagittal reformatted images were created and reviewed. Computer aided detection (CAD) was utilized. COMPARISON: CT CT CHEST PE ABD PELVIS W from 12/29/[address] ABDOMEN WO/W from 06/23/[address] CHEST PE CTA from 10/04/2024 FINDINGS: Lack of IV contrast limits the evaluation of the abdominal and pelvic organs. CHEST: Tracheobronchial tree: Patent where visualized. No bronchiectasis. Pulmonary parenchyma: There are stable areas of scarring in the lungs particularly the lower lobes. No new infiltrates are seen. No suspicious pulmonary nodules are present. Mediastinum and Katya: No dominant adenopathy or fluid collection. The esophagus is unremarkable. Thyroid gland: Unremarkable. Pleura: No effusion or pneumothorax. There are pleural calcifications again noted. This can be seen with prior exposure to asbestos. There is a stable small encapsulated fluid collection in the left lung base. Heart: Cardiomegaly. Coronary artery calcification and/or stents are present. There is an aortic valve replacement. No pericardial effusion. Aorta: Thoracic aorta non-dilated. Atherosclerotic calcification is present. Lymph nodes: Within normal limits. Bones:Within normal limits for the patient's age. Posterior spinal fusion is seen from L3 through L5. Age-appropriate degenerative changes are present throughout the thoracic and lumbar spine. Sternal wires are present. Tubes, Catheters, and Lines: There is a cardiac pacing device in place. The wires are in appropriate position. Soft tissues: Unremarkable. ABDOMEN: Liver: Normal density. No measurable mass. Gallbladder and Biliary Tract: No radiodense calculus or dilation. Pancreas: There is pancreatic atrophy. No evidence of a pancreatic mass or peripancreatic fluid collection. Spleen: Normal. Adrenals: There is a stable right adrenal nodule. It is probably an adenoma. No follow-up is recommended. The left adrenal gland is unremarkable. Kidneys: Normal size, contour and axis. No radiodense stones or obstructive uropathy. Stable cystic lesions on the kidneys. No follow-up is recommended. There is a stable peripherally calcified lesion in the inferior pole of the left kidney. There is a stable partially calcified cystic lesion in the superior pole of the right kidney. Abdominal Aorta: There is a 3.8 x 3.8 cm infrarenal abdominal aortic aneurysm noted again. Atherosclerotic calcification is present. Bowel: There is a 4 cm length of thickening of the wall in the of wall thickening in the rectosigmoid colon (series 2 images 256 through 266). There is a large amount of stool in the colon. There is a normal appendix present. Peritoneal Cavity: No ascites, collection or mesenteric inflammatory response. No free air. Lymph Nodes: Within normal limits. Bones: Within normal limits for the patient's age. Soft Tissues: Unremarkable. PELVIS: Bladder: Symmetric distention, no gross wall thickening. Reproductive Organs: The prostate gland is small or absent. Lymph Nodes: Within normal limits. Bones: Within normal limits for the patient's age. IMPRESSION: 1. There is no acute pulmonary process. 2. Short segment of concentric wall thickening at the rectosigmoid junction. Differential considerations include collapsed/nondistended bowel, inflammation/infection or neoplasm. Colonoscopy may be considered for further evaluation. 3. Large amount of stool in the colon consistent with constipation. RADIATION DOSE DELIVERED: 1,205.06mGy.cm Total DLP 1,205.06mGy.cm Total DLP DATA REPOSITORY: All CT scans at this facility are submitted to the National Radiology Data Registry (NRDR) Dose Index Registry (DIR) with the [employer] (ACR). RADIATION OPTIMIZATION: All CT scans at this facility use at least one of these dose optimization techniques: automated exposure control; mA and/or kV adjustment per patient size (includes targeted exams where dose is matched to clinical indication); or iterative reconstruction.
[2025-01-31] MEDS: VANCOMYCIN/WATER (PEG) 1.5 GM/300 ML BAG IVPB (17:28)
[2025-01-31 17:58] LABS: COVID-19 PCR Negative (Negative); Influenza A PCR Negative (Negative); Influenza B PCR Negative (Negative); RSV PCR Negative (Negative)
[2025-01-31 18:00] LABS: Source Nasopharynx
--- NOTE | 2025-01-31 18:56 | W.PM.HP.N ---
Date of service: 01/31/25 Time of Service: 18:56 Assessment and Plan Assessment and plan (1) Septic shock: Start date: 01/31/25 Status: Acute Assessment and plan: This is an 84-year-old gentleman presenting with generalized weakness for 3 days now having fever, leukopenia and thrombocytopenia along with tachypnea and slightly worsened respiratory status with chronic respiratory failure with hypoxia and hypercapnia. He does have slight increase in his pCO2 but is overall compensated. He does not have overt pneumonia and may have an abdominal process with possible colitis being covered with broad-spectrum antibiotics including tickborne disease coverage with pending cultures and evaluation. He was initiated on Zosyn, vancomycin and doxycycline IV. These will be continued with close monitoring for positive cultures or tickborne disease. Anaplasmosis is a possibility. He will be resuscitated with IV fluids have been preserved biventricular ejection fraction though he does have high PA pressures. Watch for fluid overload. He will remain in ICU with close monitoring with pressor agents as needed. He is a full code. (2) Colitis: Start date: 01/31/25 Status: Acute Assessment and plan: Mild findings on CT but also patient is having symptoms with some abdominal discomfort in the lower abdomen and presented with nausea and vomiting with generalized weakness. This should be covered with broad-spectrum antibiotic coverage for sepsis. (3) Acute on chronic respiratory failure with hypoxia and hypercapnia: Start date: 01/31/25 Status: Acute Assessment and plan: O2 supplementation increase as needed watching for worsening hypercarbia. ABG will repeated if needed. He does not appear to be exacerbated with pneumonia or increased wheezing and steroids will not be continued. More aggressive nebulizer treatments. (4) Thrombocytopenia: Assessment and plan: Monitor with serial lab. Tickborne disease may cause this problem and this appears to be acute with his acute presentation. 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 Steroids can be initiated if he has increasing respiratory symptoms. (6) Asbestosis: Assessment and plan: Lifelong exposure most likely because of his restrictive lung disease. (7) CAD (coronary artery disease): Assessment and plan: Patient had negative troponins and does not appear to have exacerbation of this problem. Recent echocardiogram does show preserved left ventricular ejection fraction. (8) Hyperlipidemia: Status: Chronic Assessment and plan: Continue outpatient medical therapy for (9) Prostate cancer: Status: Chronic Assessment and plan: Pitt catheter if needed while rehydrating with IV fluids. At least an external catheter will be placed for now. History of Present Illness History of Present Illness Chief Complaint: Extreme weakness not able to get out of bed. Narrative: This is an 84-year-old male patient who has a history of CKD, pulmonary hypertension chronically on home O2 at 2 L/min nasal cannula, COPD with restrictive lung disease status post asbestos exposure, CAD with CABG times 4 and Pacemaker after that surgery with valve replacement prompting prostatectomy for prostate cancer presenting with 3 days of feeling very weak with some abdominal discomfort and nausea and vomiting but no diarrhea or no blood in his emesis or stool. He was not diaphoretic or having chest pain with these episodes. He presented to the ED for evaluation and was having onset of fever and cough as he presented. In the ED he was found to be hypotensive with his fever, he had a low WBC and was tachypneic. He met sepsis criteria and was resuscitated with IV fluids having an echocardiogram recently showing pulmonary hypertension but preserved left ventricular ejection fraction. MD did not reveal pneumonia but possible colitis on abdominal CT. There were no abscesses. Patient was initiated on broad-spectrum antibiotic coverage including coverage of tickborne disease with the patient having new thrombocytopenia and a low WBC rather than elevation. Patient was feeling slightly better when transferred to the ICU on low-dose of norepinephrine which was discontinued as we proceeded with IV fluid resuscitation. He will be monitored closely for treatment of hypotension with reinitiation of norepinephrine with pressor agents if needed. The patient does live at home and plans on returning home. He is a full code. Review of Systems Narrative: 13 point review of systems otherwise unrevealing or stable. Patient denies any significant peripheral edema or weight gain. [facility] All Active Problems Thrombocytopenia (Chronic) Colitis (Acute) Septic shock (Acute) Colitis (Acute) Septic shock (Acute) Advanced care planning/counseling discussion (Acute) Palliative care encounter (Acute) CKD (chronic kidney disease) stage 3, GFR 30-59 ml/min (Acute) Ambulatory dysfunction (Acute) Mild cognitive impairment (Acute) Hx Head trauma Dependence on continuous supplemental oxygen (Acute) Chronic respiratory failure (Acute) Pulmonary hypertension (Acute) Acute on chronic respiratory failure with hypoxia and hypercapnia (Acute) Chronic hypoxic respiratory failure (Chronic) Asbestos-induced pleural plaque (Acute) Lumbar stenosis (Acute) 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 COPD (chronic obstructive pulmonary disease) (Chronic) Pseudophakia (Acute) Chronic kidney disease (CKD) (Chronic) BMI 30.0-30.9,adult (Acute) Prediabetes (Acute) Mild memory disturbance (Acute) Dyspnea on exertion (Acute) Acute hypotension (Acute) Closed head injury (Acute) Medical History Arteriosclerosis Polyneuropathy Pain in thoracic spine Obesity (BMI 30-39.9) Hearing loss Chronic hypoxic-ischemic brain injury Kidney lesion Lower urinary tract symptoms (LUTS) Vascular disorder CAD (coronary artery disease) Vitamin D deficiency (05/22/17) Calculus of kidney (05/22/17) Asbestosis (05/22/17) Prostate cancer, primary, with metastasis from prostate to other site Anemia Peripheral neuropathy Sick sinus syndrome Renal mass Thrombocytopenia Abdominal aortic aneurysm Surgical History H/O prosthetic heart valve Hx of artificial eye lens S/P coronary artery stent placement S/P arthroscopic knee surgery S/P prostatectomy S/P CABG x 4 S/P cervical discectomy S/P lumbar spine operation Hx of aortic valve replacement Family History Mother Essential hypertension Congestive heart failure Father Diabetes Stroke Social History Smoking/Tobacco Use Status: Former Tobacco Use Smoking risk assessment performed?: Yes Alcohol Intake: current Alcohol Intake frequency: a few times a month Drug use: Never Substance use type: does not use Household members: spouse Housing: house current occupation: [employer] - now retired Do you feel safe at home: Yes Do you feel safe in your relationship?: Yes Meds Allergies and Home Medications Allergies Allergy/AdvReac Type Severity Reaction Status Date / Time olodaterol (From Stiolto AdvReac Mild Nausea Verified 01/31/25 15:31 Respimat) tiotropium (From Stiolto AdvReac Mild Nausea Verified 01/31/25 15:31 Respimat) Home Medications ?Medication ?Instructions ?Recorded ?Confirmed ?Type atorvastatin 40 mg tablet (Lipitor) 40 mg PO HS 10/03/17 01/31/25 History aspirin 81 mg tablet,delayed 81 mg PO DAILY 01/24/21 01/31/25 History release clopidogrel 75 mg tablet 75 mg PO DAILY 08/28/22 01/31/25 History nitroglycerin 0.4 mg sublingual 0.4 mg sublingual Q5M PRN 08/28/22 01/31/25 History tablet triamcinolone acetonide 0.1 % 1 applic topical BID PRN 09/03/22 01/31/25 History topical cream gabapentin 100 mg capsule 100 mg PO BID 04/17/23 01/31/25 History albuterol sulfate 2.5 mg/3 mL 2.5 mg (3 mL) UPD Q4H PRN PRN 10/06/24 01/31/25 Rx (0.083 %) solution for nebulization shortness of breath or wheezing #90 mL acetaminophen 325 mg tablet 325 mg PO Q6H PRN 11/02/24 01/31/25 History furosemide 20 mg tablet 20 mg PO DAILY 11/02/24 01/31/25 History tamsulosin 0.4 mg capsule 0.4 mg PO DAILY 11/02/24 01/31/25 History umeclidinium 62.5 mcg-vilanterol 1 inh inhalation DAILY 11/02/24 01/31/25 History 25 mcg/actuation powdr for inhalation (Anoro Ellipta) Exam Narrative Exam Narrative: General: Patient appears appropriate for age, alert and oriented x 3 and in moderate respiratory distress especially with exertion. HEENT: Normocephalic, eyes with pupils equal and react to light symmetrically, extraocular movement intact and sclera anicteric. Oropharynx with dry mucosa and fair dentition. Neck: Supple without JVD. Back: Kyphotic without CVA tenderness. Lungs: Decreased aeration diffusely with fair air movement except over both bases with scant inspiratory coarse crackles, bronchovesicular breath sounds diffusely, no focalizing rales or rhonchi. Scant expiratory wheeze. No increased expiratory phase. Heart: Distant heart sounds with regular rate rhythm and no murmurs or gallops appreciated. Sternal scar. Palpable subcutaneous pacemaker left upper chest. Abdomen: Normal contour, soft and nontender to palpation with no palpable hepatosplenomegaly. Bowel sounds positive in all quadrants. Genitalia/rectal: Exam deferred. Extremities: Without clubbing, cyanosis or grossly pitting edema. Nonpitting edema over both lower extremities left more than right. Fair capillary refill. Skin: Normal color, warm and dry actinic changes over sun exposed areas with no suspicious lesions. Neuro: Cranial nerves II through XII gross intact, no focal deficits and no tremor. Psych: Normal affect and mood. No abnormal thought processes. Remote and recent memory grossly intact. Results Imaging Imaging Studies: EXAM: CT HEAD WO CLINICAL HISTORY: headache, eval for bleed vs mass. TECHNIQUE: Imaging Protocol: Axial computed tomography images with coronal and sagittal reformatted images were created and reviewed COMPARISON: CT CT HEAD CERVICAL SPINE WO from 01/24/2021 FINDINGS: Ventricles and Extra axial spaces: Normal in size and morphology for the patient's age. Hemorrhage: None. Cerebral parenchyma: There are areas of decreased attenuation in the white matter most consistent with chronic microvascular ischemic disease. There is no evidence of an acute territorial infarct or mass effect. Midline shift: None. Brainstem/Cerebellum: Normal. Calvarium: Normal. Visualized Paranasal sinuses/Mastoids: Clear. Soft Tissues: Unremarkable. IMPRESSION: No acute intracranial process. EXAM: CT CHEST/ABD/PEL WO CLINICAL HISTORY: vomiting, fever, LLQ pain TECHNIQUE: Imaging Protocol: Axial computed tomography images with coronal and sagittal reformatted images were created and reviewed. Computer aided detection (CAD) was utilized. COMPARISON: CT CT CHEST PE ABD PELVIS W from 12/29/[address] ABDOMEN WO/W from 06/23/[address] CHEST PE CTA from 10/04/2024 FINDINGS: Lack of IV contrast limits the evaluation of the abdominal and pelvic organs. CHEST: Tracheobronchial tree: Patent where visualized. No bronchiectasis. Pulmonary parenchyma: There are stable areas of scarring in the lungs particularly the lower lobes. No new infiltrates are seen. No suspicious pulmonary nodules are present. Mediastinum and Katya: No dominant adenopathy or fluid collection. The esophagus is unremarkable. Thyroid gland: Unremarkable. Pleura: No effusion or pneumothorax. There are pleural calcifications again noted. This can be seen with prior exposure to asbestos. There is a stable small encapsulated fluid collection in the left lung base. Heart: Cardiomegaly. Coronary artery calcification and/or stents are present. There is an aortic valve replacement. No pericardial effusion. Aorta: Thoracic aorta non-dilated. Atherosclerotic calcification is present. Lymph nodes: Within normal limits. Bones:Within normal limits for the patient's age. Posterior spinal fusion is seen from L3 through L5. Age-appropriate degenerative changes are present throughout the thoracic and lumbar spine. Sternal wires are present. Tubes, Catheters, and Lines: There is a cardiac pacing device in place. The wires are in appropriate position. Soft tissues: Unremarkable. ABDOMEN: Liver: Normal density. No measurable mass. Gallbladder and Biliary Tract: No radiodense calculus or dilation. Pancreas: There is pancreatic atrophy. No evidence of a pancreatic mass or peripancreatic fluid collection. Spleen: Normal. Adrenals: There is a stable right adrenal nodule. It is probably an adenoma. No follow-up is recommended. The left adrenal gland is unremarkable. Kidneys: Normal size, contour and axis. No radiodense stones or obstructive uropathy. Stable cystic lesions on the kidneys. No follow-up is recommended. There is a stable peripherally calcified lesion in the inferior pole of the left kidney. There is a stable partially calcified cystic lesion in the superior pole of the right kidney. Abdominal Aorta: There is a 3.8 x 3.8 cm infrarenal abdominal aortic aneurysm noted again. Atherosclerotic calcification is present. Bowel: There is a 4 cm length of thickening of the wall in the of wall thickening in the rectosigmoid colon (series 2 images 256 through 266). There is a large amount of stool in the colon. There is a normal appendix present. Peritoneal Cavity: No ascites, collection or mesenteric inflammatory response. No free air. Lymph Nodes: Within normal limits. Bones: Within normal limits for the patient's age. Soft Tissues: Unremarkable. PELVIS: Bladder: Symmetric distention, no gross wall thickening. Reproductive Organs: The prostate gland is small or absent. Lymph Nodes: Within normal limits. Bones: Within normal limits for the patient's age. IMPRESSION: 1. There is no acute pulmonary process. 2. Short segment of concentric wall thickening at the rectosigmoid junction. Differential considerations include collapsed/nondistended bowel, inflammation/infection or neoplasm. Colonoscopy may be considered for further evaluation. 3. Large amount of stool in the colon consistent with constipation. Date of Exam: 10/18/24 EXAM: Comprehensive 2D, Doppler, and color-flow Echocardiogram Indications: MINOR, aortic valve replacement Other Information Study Quality: Fair Conclusion Normal left ventricular wall thickness and chamber size. Ejection fraction is 60%. Wall motion is normal Right ventricular size and function is normal Both atria are normal in size Device lead noted in the right heart There is a bioprosthetic aortic valve replacement. There is no aortic regurgitation. Mean gradient is 11 mmHg Mild tricuspid regurgitation with estimated right ventricular systolic pressure of 47 mmHg Labs 01/31/25 15:51 01/31/25 15:51 Labs: Laboratory Results - last 24 hr 01/31/25 01/31/25 01/31/25 15:15 15:51 16:35 WBC 3.80 L RBC 4.05 L Hgb 12.6 L Hct 38.6 L MCV 95 MCH 31.1 MCHC 32.6 RDW 15.5 H Plt Count 80 L MPV 9.3 Immature Gran % 0.8 Neutrophils % 88.2 Lymphocytes % 5.5 Monocytes % 4.7 Eosinophils % 0.3 Basophils % 0.5 Nucleated RBC % 0.0 Absolute Neutrophils 3.35 Absolute Lymphocytes 0.21 L Absolute Monocytes 0.18 Absolute Eosinophils 0.01 Absolute Basophils 0.02 PT 10.8 INR 1.1 APTT 22.5 VBG pH 7.32 VBG pCO2 63 H* VBG pO2 42 VBG HCO3 32 H VBG Total CO2 30 H VBG O2 Saturation 72 VBG Base Excess 6 H VBG Lactate 0.9 Sodium 138 Potassium 4.5 Chloride 101 Carbon Dioxide 32.3 H Anion Gap 4.7 BUN 19 H Creatinine 1.0 Est GFR (CKD-EPI 2020) 73.76 Glucose 129 H Calcium 8.4 L Total Bilirubin 0.9 AST 54 H ALT 53 Alkaline Phosphatase 179 H Troponin I 12 Total Protein 6.4 Albumin 3.4 TSH 0.46 Urine Color Yellow Urine Clarity Clear Urine pH 7.0 Ur Specific [place] 1.020 Urine Protein 100 H Urine Ketones 15 H Urine Blood Trace-intact H Urine Nitrite Negative Urine Bilirubin Negative Urine Urobilinogen 2.0 H Ur Leukocyte Esterase Negative Urine RBC 3-5 H Urine WBC 0-2 Ur Epithelial Cells Rare Urine Crystals Negative Urine Bacteria Negative Urine Casts Negative Urine Mucus Negative Urine Other Rare Transitional Ur Culture Indicated? No Urine Glucose Negative COVID-19 Source SARS-CoV-2 (PCR) Influenza Type A (PCR) Influenza Type B (PCR) RSV (PCR) 01/31/25 01/31/25 16:40 17:16 WBC RBC Hgb Hct MCV MCH MCHC RDW Plt Count MPV Immature Gran % Neutrophils % Lymphocytes % Monocytes % Eosinophils % Basophils % Nucleated RBC % Absolute Neutrophils Absolute Lymphocytes Absolute Monocytes Absolute Eosinophils Absolute Basophils PT INR APTT VBG pH VBG pCO2 VBG pO2 VBG HCO3 VBG Total CO2 VBG O2 Saturation VBG Base Excess VBG Lactate Sodium Potassium Chloride Carbon Dioxide Anion Gap BUN Creatinine Est GFR (CKD-EPI 2020) Glucose Calcium Total Bilirubin AST ALT Alkaline Phosphatase Troponin I 14 Total Protein Albumin TSH Urine Color Urine Clarity Urine pH Ur Specific [place] Urine Protein Urine Ketones Urine Blood Urine Nitrite Urine Bilirubin Urine Urobilinogen Ur Leukocyte Esterase Urine RBC Urine WBC Ur Epithelial Cells Urine Crystals Urine Bacteria Urine Casts Urine Mucus Urine Other Ur Culture Indicated? Urine Glucose COVID-19 Source Nasopharynx SARS-CoV-2 (PCR) Negative Influenza Type A (PCR) Negative Influenza Type B (PCR) Negative RSV (PCR) Negative Last Vital Signs Temp 37.7 C H 01/31/25 17:39 Pulse 84 01/31/25 18:41 Resp 26 H 01/31/25 18:41 BP 95/49 L 01/31/25 18:40 Pulse Ox 96 01/31/25 18:41 Time Spent Time spent with Patient: >75 minutes Time was spent: preparing to see the patient(eg.review tests), obtaining and/or reviewing separately otained hiistory, ordering medications,tests, procedures, indepentently interpreting results, counseling the patient and care coordination
--- NOTE | 2025-01-31 19:15 | DI.RAD_ITS ---
Exam(s) XR PORTABLE CHEST AP POST LINE EXAM: XR PORTABLE CHEST AP POST LINE CLINICAL HISTORY: central line placement confirmation TECHNIQUE: 2D digital imaging was performed. COMPARISON: CR XR CHEST 2V PA LATERAL from 10/04/2024 FINDINGS: There is a right internal total jugular central venous catheter with the tip projecting at the junction of the SVC and right atrium. LUNGS: Low lung volumes. Calcified pleural plaques partially obscure visualization of the lung robles. No pleural abnormality seen. Increased densities at the left lung base could represent infiltrate versus atelectasis. HEART: Normal size. Pacemaker. TAVR. AORTA: Normal diameter. BONES: Sternal wires. Soft tissues: Unremarkable. IMPRESSION: Satisfactory placement of central line. DATA REPOSITORY: RADIATION DOSE DELIVERED:
[2025-01-31 19:19] LABS: Troponin I 16 ng/L (<or=76)
--- NOTE | 2025-01-31 20:01 | W.PC.ACHO ---
Registration Status: REG ER Primary Language: Preferred Language: Nepali ED Information & Data Chief Complaint GenMedical 01/31/25 16:23 Chief Complaint GenMedical 01/31/25 15:21 Triage Note Headache which started 01/31/25 15:21 yesterday at the top of his head this went away now is slightly there. He reported chronically left sided abdominal pain. Reported that he is feeling weak, nauseated, dry heaving. Enroute he received zofran 4mg Medical / Surgical History (Last Reviewed 01/31/25 @ 18:56 by Miko Birmingham) Arteriosclerosis Polyneuropathy Pain in thoracic spine Obesity (BMI 30-39.9) Hearing loss Chronic hypoxic-ischemic brain injury Kidney lesion Lower urinary tract symptoms (LUTS) Vascular disorder CAD (coronary artery disease) Vitamin D deficiency (05/22/17) Calculus of kidney (05/22/17) Asbestosis (05/22/17) Prostate cancer, primary, with metastasis from prostate to other site Anemia Peripheral neuropathy Sick sinus syndrome Renal mass Thrombocytopenia Abdominal aortic aneurysm (Last Reviewed 01/31/25 @ 18:56 by Miko Birmingham) H/O prosthetic heart valve Hx of artificial eye lens S/P coronary artery stent placement S/P arthroscopic knee surgery S/P prostatectomy S/P CABG x 4 S/P cervical discectomy S/P lumbar spine operation Hx of aortic valve replacement Most Recent Vital Signs Temperature 37.2 C 01/31/25 19:01 Temperature Source Oral 01/31/25 19:01 Pulse 128 H 01/31/25 19:32 Pulse 85 01/31/25 19:32 Respiratory Rate 24 01/31/25 19:32 Respiratory Effort Normal, Non-Labored 01/31/25 17:02 Respiratory Depth Normal 01/31/25 17:02 Respiratory Pattern Normal 01/31/25 17:02 Blood Pressure 96/53 L 01/31/25 19:32 Blood Pressure Mean 65 01/31/25 19:32 Blood Pressure Position Sitting 01/31/25 15:21 Pulse Oximetry 98 01/31/25 19:32 Oxygen Delivery Method Nasal Cannula 01/31/25 18:08 Oxygen Flow Rate 2 01/31/25 18:08 Pain Level 0 01/31/25 15:53 Allergies olodaterol (From Stiolto Respimat) Adverse Reaction (Mild, Verified 06/23/25 15:31) Nausea tiotropium (From Stiolto Respimat) Adverse Reaction (Mild, Verified 01/31/25 15:31) Nausea Precautions Isolation Standard precaution 01/31/25 16:23 Active Medications Generic Name Dose Route Start Last Admin Trade Name Taj PRN Reason Stop Dose Admin Vancomycin/PEG/NADA/Lysine/Water 1.5 gm in 300 mls @ 200 mls/hr 01/31/25 16:30 01/31/25 18:44 Vancocin Injection IVPB 200 mls/hr ONCE ALICIA Infusion IV IV Catheter Type [Right Saline Lock Antecubital] IV Catheter Type [Left Wrist] Saline Lock IV Catheter Gauge [Right 18 Antecubital] IV Catheter Gauge [Left Wrist] 18 Diagnostics 01/31/25 01/31/25 01/31/25 Range/Units 18:40 17:16 16:40 WBC (4.4-10.8) 10^3/uL RBC (4.36-5.78) 10^6/uL Hgb (13.5-17.5) g/dL Hct (40.0-50.0) % MCV (80-95) fL MCH (27.0-33.0) pg MCHC (32.0-36.0) % RDW (11.8-14.1) % Plt Count (130-400) 10^3/uL MPV (8.0-11.0) fL Immature Gran % % Neutrophils % % Lymphocytes % % Monocytes % % Eosinophils % % Basophils % % Nucleated RBC % (0.0-0.3) % Absolute Neutrophils (1.2-6.7) 10^3/uL Absolute Lymphocytes (1.2-3.4) 10^3/uL Absolute Monocytes (0.1-0.8) 10^3/uL Absolute Eosinophils (0.0-0.7) 10^3/uL Absolute Basophils (0.0-0.2) 10^3/uL PT (9.1-11.1) sec INR (0.9-1.1) APTT (20.6-30.2) sec VBG pH (7.31-7.41) VBG pCO2 (41-51) mmHg VBG pO2 mmHg VBG HCO3 (23-28) mmol/L VBG Total CO2 (24-29) mmol/L VBG O2 Saturation % VBG Base Excess (-2-3) mmol/L VBG Lactate (<or=2.0) mmol/L Sodium (136-145) mmol/L Potassium (3.5-5.1) mmol/L Chloride (98-107) mmol/L Carbon Dioxide (21.0-32.0) mmol/L Anion Gap (3-11) mmol/L BUN (7-18) mg/dL Creatinine (0.70-1.30) mg/dL Est GFR (CKD-EPI 2020) (mL/min/1.73m2) Glucose (74-106) mg/dL Calcium (8.5-10.1) mg/dL Total Bilirubin (0.2-1.0) mg/dL AST (15-37) U/L ALT (16-63) U/L Alkaline Phosphatase (46-116) U/L Troponin I 16 14 (<or=76) ng/L Total Protein (6.4-8.2) g/dL Albumin (3.4-5.0) g/dL TSH (0.36-3.74) uIU/mL Urine Color (Yellow) Urine Clarity (Clear) Urine pH (5-8) Ur Specific Jonancy (1.005-1.025) Urine Protein (Neg-Trace) mg/dL Urine Ketones (Negative) mg/dL Urine Blood (Negative) Urine Nitrite (Negative) Urine Bilirubin (Negative) Urine Urobilinogen (Up to 0.2) mg/dL Ur Leukocyte Esterase (Negative) Urine RBC (0-2) HPF Urine WBC (0-5) HPF Ur Epithelial Cells (Negative) HPF Urine Crystals (Negative) HPF Urine Bacteria (Negative) HPF Urine Casts (Negative) LPF Urine Mucus (Negative) Urine Other (Negative) Ur Culture Indicated? Urine Glucose (Negative) mg/dL B. divergens/MO-1 PCR Babesia duncani (PCR) Babesia microti DNA PCR Lyme Disease Antibody COVID-19 Source Nasopharynx SARS-CoV-2 (PCR) Negative (Negative) E.chaffeensis DNA (PCR) E.ewingii/canis DNA PCR E.muris eauclairensis (PCR) Influenza Type A (PCR) Negative (Negative) Influenza Type B (PCR) Negative (Negative) RSV (PCR) Negative (Negative) A. phagocytophilum (PCR) Blood B. miyamotoi (PCR) 01/31/25 01/31/25 01/31/25 Range/Units 16:35 16:00 15:51 WBC 3.80 L (4.4-10.8) 10^3/uL RBC 4.05 L (4.36-5.78) 10^6/uL Hgb 12.6 L (13.5-17.5) g/dL Hct 38.6 L (40.0-50.0) % MCV 95 (80-95) fL MCH 31.1 (27.0-33.0) pg MCHC 32.6 (32.0-36.0) % RDW 15.5 H (11.8-14.1) % Plt Count 80 L (130-400) 10^3/uL MPV 9.3 (8.0-11.0) fL Immature Gran % 0.8 % Neutrophils % 88.2 % Lymphocytes % 5.5 % Monocytes % 4.7 % Eosinophils % 0.3 % Basophils % 0.5 % Nucleated RBC % 0.0 (0.0-0.3) % Absolute Neutrophils 3.35 (1.2-6.7) 10^3/uL Absolute Lymphocytes 0.21 L (1.2-3.4) 10^3/uL Absolute Monocytes 0.18 (0.1-0.8) 10^3/uL Absolute Eosinophils 0.01 (0.0-0.7) 10^3/uL Absolute Basophils 0.02 (0.0-0.2) 10^3/uL PT 10.8 (9.1-11.1) sec INR 1.1 (0.9-1.1) APTT 22.5 (20.6-30.2) sec VBG pH (7.31-7.41) VBG pCO2 (41-51) mmHg VBG pO2 mmHg VBG HCO3 (23-28) mmol/L VBG Total CO2 (24-29) mmol/L VBG O2 Saturation % VBG Base Excess (-2-3) mmol/L VBG Lactate (<or=2.0) mmol/L Sodium 138 (136-145) mmol/L Potassium 4.5 (3.5-5.1) mmol/L Chloride 101 (98-107) mmol/L Carbon Dioxide 32.3 H (21.0-32.0) mmol/L Anion Gap 4.7 (3-11) mmol/L BUN 19 H (7-18) mg/dL Creatinine 1.0 (0.70-1.30) mg/dL Est GFR (CKD-EPI 2020) 73.76 (mL/min/1.73m2) Glucose 129 H (74-106) mg/dL Calcium 8.4 L (8.5-10.1) mg/dL Total Bilirubin 0.9 (0.2-1.0) mg/dL AST 54 H (15-37) U/L ALT 53 (16-63) U/L Alkaline Phosphatase 179 H (46-116) U/L Troponin I 12 (<or=76) ng/L Total Protein 6.4 (6.4-8.2) g/dL Albumin 3.4 (3.4-5.0) g/dL TSH 0.46 (0.36-3.74) uIU/mL Urine Color Yellow (Yellow) Urine Clarity Clear (Clear) Urine pH 7.0 (5-8) Ur Specific Jonancy 1.020 (1.005-1.025) Urine Protein 100 H (Neg-Trace) mg/dL Urine Ketones 15 H (Negative) mg/dL Urine Blood Trace-intact H (Negative) Urine Nitrite Negative (Negative) Urine Bilirubin Negative (Negative) Urine Urobilinogen 2.0 H (Up to 0.2) mg/dL Ur Leukocyte Esterase Negative (Negative) Urine RBC 3-5 H (0-2) HPF Urine WBC 0-2 (0-5) HPF Ur Epithelial Cells Rare (Negative) HPF Urine Crystals Negative (Negative) HPF Urine Bacteria Negative (Negative) HPF Urine Casts Negative (Negative) LPF Urine Mucus Negative (Negative) Urine Other Rare Transitional (Negative) Ur Culture Indicated? No Urine Glucose Negative (Negative) mg/dL B. divergens/MO-1 PCR Pending Babesia duncani (PCR) Pending Babesia microti DNA PCR Pending Lyme Disease Antibody Pending COVID-19 Source SARS-CoV-2 (PCR) (Negative) E.chaffeensis DNA (PCR) Pending E.ewingii/canis DNA PCR Pending E.muris eauclairensis (PCR) Pending Influenza Type A (PCR) (Negative) Influenza Type B (PCR) (Negative) RSV (PCR) (Negative) A. phagocytophilum (PCR) Pending Blood B. miyamotoi (PCR) Pending 01/31/25 Range/Units 15:15 WBC (4.4-10.8) 10^3/uL RBC (4.36-5.78) 10^6/uL Hgb (13.5-17.5) g/dL Hct (40.0-50.0) % MCV (80-95) fL MCH (27.0-33.0) pg MCHC (32.0-36.0) % RDW (11.8-14.1) % Plt Count (130-400) 10^3/uL MPV (8.0-11.0) fL Immature Gran % % Neutrophils % % Lymphocytes % % Monocytes % % Eosinophils % % Basophils % % Nucleated RBC % (0.0-0.3) % Absolute Neutrophils (1.2-6.7) 10^3/uL Absolute Lymphocytes (1.2-3.4) 10^3/uL Absolute Monocytes (0.1-0.8) 10^3/uL Absolute Eosinophils (0.0-0.7) 10^3/uL Absolute Basophils (0.0-0.2) 10^3/uL PT (9.1-11.1) sec INR (0.9-1.1) APTT (20.6-30.2) sec VBG pH 7.32 (7.31-7.41) VBG pCO2 63 H* (41-51) mmHg VBG pO2 42 mmHg VBG HCO3 32 H (23-28) mmol/L VBG Total CO2 30 H (24-29) mmol/L VBG O2 Saturation 72 % VBG Base Excess 6 H (-2-3) mmol/L VBG Lactate 0.9 (<or=2.0) mmol/L Sodium (136-145) mmol/L Potassium (3.5-5.1) mmol/L Chloride (98-107) mmol/L Carbon Dioxide (21.0-32.0) mmol/L Anion Gap (3-11) mmol/L BUN (7-18) mg/dL Creatinine (0.70-1.30) mg/dL Est GFR (CKD-EPI 2020) (mL/min/1.73m2) Glucose (74-106) mg/dL Calcium (8.5-10.1) mg/dL Total Bilirubin (0.2-1.0) mg/dL AST (15-37) U/L ALT (16-63) U/L Alkaline Phosphatase (46-116) U/L Troponin I (<or=76) ng/L Total Protein (6.4-8.2) g/dL Albumin (3.4-5.0) g/dL TSH (0.36-3.74) uIU/mL Urine Color (Yellow) Urine Clarity (Clear) Urine pH (5-8) Ur Specific Jonancy (1.005-1.025) Urine Protein (Neg-Trace) mg/dL Urine Ketones (Negative) mg/dL Urine Blood (Negative) Urine Nitrite (Negative) Urine Bilirubin (Negative) Urine Urobilinogen (Up to 0.2) mg/dL Ur Leukocyte Esterase (Negative) Urine RBC (0-2) HPF Urine WBC (0-5) HPF Ur Epithelial Cells (Negative) HPF Urine Crystals (Negative) HPF Urine Bacteria (Negative) HPF Urine Casts (Negative) LPF Urine Mucus (Negative) Urine Other (Negative) Ur Culture Indicated? Urine Glucose (Negative) mg/dL B. divergens/MO-1 PCR Babesia duncani (PCR) Babesia microti DNA PCR Lyme Disease Antibody COVID-19 Source SARS-CoV-2 (PCR) (Negative) E.chaffeensis DNA (PCR) E.ewingii/canis DNA PCR E.muris eauclairensis (PCR) Influenza Type A (PCR) (Negative) Influenza Type B (PCR) (Negative) RSV (PCR) (Negative) A. phagocytophilum (PCR) Blood B. miyamotoi (PCR) 01/31/25 15:29 Blood Culture - Pending Blood 01/31/25 15:29 Blood Culture - Pending Blood Intake and Output - 24 Hour Total 01/31/25 15:09 thru 01/31/25 18:44 Intake Total 333.333 Balance 333.333 Weight 81.647 kg Intake: IV 333.333 Falls Risk Assessment History of Falls Admit Due to Fall 01/31/25 15:54 Contributing Factors Unstable 01/31/25 15:54 Ambulatory Aids Uses ambulatory device + 01/31/25 15:54 Tubes/Lines With any additional score 01/31/25 15:54 Gait Evaluation No gait disturbance 01/31/25 15:54 Cognition No cognitive impairment 01/31/25 15:54 Fall Total Score 78 01/31/25 15:54 Level of Risk Maximum Risk 01/31/25 15:54 Problems (Last Reviewed 01/31/25 @ 18:56 by Miko Birmingham) Colitis (Acute) Septic shock (Acute) Acute on chronic respiratory failure with hypoxia and hypercapnia (Acute) 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 Information / Comments: Report received from: Mehnaz WILLARD
[2025-01-31] MEDS: Norepinephrine in D5W 8 MG/250 ML BAG 9.375 MG IV (20:02)
--- NOTE | 2025-01-31 20:41 | DI.VRAD_ITS ---
PROCEDURE INFORMATION: Exam: XR Chest Exam date and time: 01/31/2025 7:38 PM Age: 84 years old Clinical indication: Device placement; Prior surgery; Surgery date: 6+ months; Surgery type: Pacemaker, stent; Central line placement confirmation TECHNIQUE: Imaging protocol: Radiologic exam of the chest. Views: 1 view. COMPARISON: CT CHEST/ABD/PEL WO 01/31/2025 5:03 PM FINDINGS: Tubes, catheters and devices: Left subclavian pacemaker leads are identified with their tips in the right atrium and right ventricle respectively. Right jugular central venous catheter identified with its tip at the junction of the superior vena cava and right atrium. Lungs: No consolidating infiltrates. Left basilar subsegmental atelectatic changes. Pleural spaces: Bilateral pleural plaques [id number]. Heart/Mediastinum: Unremarkable. No cardiomegaly. Bones/joints: Unremarkable. IMPRESSION: 1. Left basilar subsegmental atelectatic changes with an early infiltrate not excluded. 2. Right jugular central venous catheter identified with its tip at the junction of the superior vena cava and right atrium. Dictated and Authenticated by: Aleks Thompson MD. Orderin Jayne Yanes MD
[2025-01-31] MEDS: Normal Saline Flush 10 ML SYR IVP (21:52)
[2025-01-31] MEDS: Atorvastatin 40 MG TAB PO (21:52)
[2025-01-31] MEDS: Lidocaine 2% Jelly 11 ML SYR (21:52)
[2025-01-31] MEDS: Gabapentin 100 MG CAP PO (21:52)
[2025-01-31] MEDS: Insulin Aspart 300 UNITS/3 ML PEN SC (21:52)
[2025-01-31] MEDS: Miconazole 2% Topical Powder 85 GM BTL (22:27)
--- NOTE | 2025-01-31 23:48 | ED.GENADUL_ITS ---
Discharge Plan Disposition Patient Disposition: Admit to [facility] Condition: Serious Discharge Details Clinical Impression: Septic shock, Colitis, Thrombocytopenia Admit Date/Time: 01/31/25 19:34 Admit Provider: Miko Birmingham Attending Provider: Miko Birmingham Primary Care Provider: Wilber Luna ED Provider: Joaquín Godoy HPI General Date/Time Provider Initiated Documentation: 01/31/25 15:28 . HPI Narrative: 84-year-old male with a past medical history of chronic kidney disease, pulmonary hypertension, pacemaker, coronary artery disease, CABG x 4, prostatectomy, presents today for evaluation of feeling unwell. Patient states that last night he had a mild headache, this morning when he woke up he took Advil and the headache went away, however throughout the rest of the day he felt notably weak, had episodes of vomiting and nausea, did not feel well. His house was warm, but not excessive. He also admits to left lower quadrant abdominal pain for the last 2 years but denies any other complaints. No other modifying factors. He denies any cough or fever or chills. He is on baseline oxygen at 2 to 3 L. Related Data Home Medications ?Medication ?Instructions ?Recorded ?Confirmed atorvastatin 40 mg tablet (Lipitor) 40 mg PO HS 01/31/25 aspirin 81 mg tablet,delayed 81 mg PO DAILY 01/24/21 0 01/31/25 release clopidogrel 75 mg tablet 75 mg PO DAILY 08/28/2201/10 nitroglycerin 0.4 mg sublingual 0.4 mg sublingual Q5M PRN 08/28/22 01/31/25 tablet triamcinolone acetonide 0.1 % 1 applic topical BID PRN 09/03/22 01/31/25 topical cream gabapentin 100 mg capsule 100 mg PO BID 04/17/2301/31 albuterol sulfate 2.5 mg/3 mL 2.5 mg (3 mL) UPD Q4H HI N PRN 10/06/24 01/31/25 (0.083 %) solution for nebulization shortness of breat h or wheezing #90 mL acetaminophen 325 mg tablet 325 mg PO Q6H PRN 11/02/24 01/31/25 furosemide 20 mg tablet 20 mg PO DAILY 11/02/2401/10 tamsulosin 0.4 mg capsule 0.4 mg PO DAILY 11/02/24 umeclidinium 62.5 mcg-vilanterol 1 inh inhalation BRISA Y 11/02/24 01/31/25 25 mcg/actuation powdr for inhalation (Anoro Ellipta) Previous Rx's ?Medication ?Instructions ?Recorded albuterol sulfate 2.5 mg/3 mL 2.5 mg (3 mL) UPD Q4H HI N PRN 10/06/24 (0.083 %) solution for nebulization shortness of breat h or wheezing #90 mL Allergies Allergy/AdvReac Type Severity Reaction Status Date / Time olodaterol (From Stiolto AdvReac Mild Nausea Verified 01/31/25 15:31 Respimat) tiotropium (From Stiolto AdvReac Mild Nausea Verified 01/31/25 15:31 Respimat) General Stated Complaint: GenMedical ОЛЬГА: 2 Exam Narrative Exam Narrative: 1.Const: Well-nourished, Well-developed, appearing stated age 2.Eyes: PERRL, no conjunctival injection, and symmetrical lids. 3.ENT: Atraumatic external nose and ears. Dry MM. Neck: Symmetric, trachea midline, No thyromegaly. 4.CVS: +S1/S2, Peripheral pulses 2+ and equal in all extremities. Brisk capillary refill in all extremities. 5.RESP: Unlabored respiratory effort. Clear to auscultation bilaterally. No wheezes rales or rhonchi 6.GI: Soft, nondistended, no guarding or rebound, mild achiness in the left abdomen. No pain to McBurney's point. 7.MSK: Normocephalic/Atraumatic, Extremities w/o deformity or ttp No cyanosis or clubbing, Normal movement of all extremities 8.Skin: Warm, Dry. No rashes or lesions. 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 Sensation grossly intact, no focal neurologic deficits. 10.Psych: (AAO) x3. Appropriate mood and affect Course Vital Signs Vital signs: Vital Signs Temperature 38.1 C H 01/31/25 15:21 Pulse 94 H 01/31/25 15:21 Respiratory Rate 35 H 01/31/25 15:21 Blood Pressure 190/89 H 01/31/25 15:21 Pulse Oximetry 97 01/31/25 15:21 Temperature 37.2 C 01/31/25 19:01 Temperature Source Oral 01/31/25 19:01 Pulse 128 H 01/31/25 19:32 Pulse 85 01/31/25 19:32 Respiratory Rate 24 01/31/25 19:32 Respiratory Effort Normal, Non-Labored 01/31/25 17:02 Respiratory Depth Normal 01/31/25 17:02 Respiratory Pattern Normal 01/31/25 17:02 Blood Pressure 96/53 L 01/31/25 19:32 Blood Pressure Mean 65 01/31/25 19:32 Blood Pressure Position Sitting 01/31/25 15:21 Pulse Oximetry 98 01/31/25 19:32 Oxygen Delivery Method Nasal Cannula 01/31/25 18:08 Oxygen Flow Rate 2 01/31/25 18:08 Pain Level 0 01/31/25 15:53 Lab/Test Results Lab/Test Results: 01/31/25 16:40 Blood Blood Culture - Pending 01/31/25 16:00 Blood Blood Culture - Pending Laboratory Tests Range/Units 01/31/25 01/31/25 01/31/25 15:15 15:51 16:35 WBC (4.4-10.8) 10^3/uL 3.80 L RBC (4.36-5.78) 10^6/uL 4.05 L Hgb (13.5-17.5) g/dL 12.6 L Hct (40.0-50.0) % 38.6 L MCV (80-95) fL 95 MCH (27.0-33.0) pg 31.1 MCHC (32.0-36.0) % 32.6 RDW (11.8-14.1) % 15.5 H Plt Count (130-400) 10^3/uL 80 L MPV (8.0-11.0) fL 9.3 Immature Gran % % 0.8 Neutrophils % % 88.2 Lymphocytes % % 5.5 Monocytes % % 4.7 Eosinophils % % 0.3 Basophils % % 0.5 Nucleated RBC % (0.0-0.3) % 0.0 Absolute Neutrophils (1.2-6.7) 10^3/uL 3.35 Absolute Lymphocytes (1.2-3.4) 10^3/uL 0.21 L Absolute Monocytes (0.1-0.8) 10^3/uL 0.18 Absolute Eosinophils (0.0-0.7) 10^3/uL 0.01 Absolute Basophils (0.0-0.2) 10^3/uL 0.02 PT (9.1-11.1) sec 10.8 INR (0.9-1.1) 1.1 APTT (20.6-30.2) sec 22.5 VBG pH (7.31-7.41) 7.32 VBG pCO2 (41-51) mmHg 63 H* VBG pO2 mmHg 42 VBG HCO3 (23-28) mmol/L 32 H VBG Total CO2 (24-29) mmol/L 30 H VBG O2 Saturation % 72 VBG Base Excess (-2-3) mmol/L 6 H VBG Lactate (<or=2.0) mmol/L 0.9 Sodium (136-145) mmol/L 138 Potassium (3.5-5.1) mmol/L 4.5 Chloride (98-107) mmol/L 101 Carbon Dioxide (21.0-32.0) mmol/L 32.3 H Anion Gap (3-11) mmol/L 4.7 BUN (7-18) mg/dL 19 H Creatinine (0.70-1.30) mg/dL 1.0 Est GFR (CKD-EPI 2020) (mL/min/1.73m2) 73.76 Glucose (74-106) mg/dL 129 H Calcium (8.5-10.1) mg/dL 8.4 L Total Bilirubin (0.2-1.0) mg/dL 0.9 AST (15-37) U/L 54 H ALT (16-63) U/L 53 Alkaline Phosphatase (46-116) U/L 179 H Troponin I (<or=76) ng/L 12 Total Protein (6.4-8.2) g/dL 6.4 Albumin (3.4-5.0) g/dL 3.4 TSH (0.36-3.74) uIU/mL 0.46 Urine Color (Yellow) Yellow Urine Clarity (Clear) Clear Urine pH (5-8) 7.0 Ur Specific [place] (1.005-1.025) 1.020 Urine Protein (Neg-Trace) mg/dL 100 H Urine Ketones (Negative) mg/dL 15 H Urine Blood (Negative) Trace-intact H Urine Nitrite (Negative) Negative Urine Bilirubin (Negative) Negative Urine Urobilinogen (Up to 0.2) mg/dL 2.0 H Ur Leukocyte Esterase (Negative) Negative Urine RBC (0-2) HPF 3-5 H Urine WBC (0-5) HPF 0-2 Ur Epithelial Cells (Negative) HPF Rare Urine Crystals (Negative) HPF Negative Urine Bacteria (Negative) HPF Negative Urine Casts (Negative) LPF Negative Urine Mucus (Negative) Negative Urine Other (Negative) Rare Transitional Ur Culture Indicated? No Urine Glucose (Negative) mg/dL Negative COVID-19 Source SARS-CoV-2 (PCR) (Negative) Influenza Type A (PCR) (Negative) Influenza Type B (PCR) (Negative) RSV (PCR) (Negative) Range/Units 01/31/25 01/31/25 01/31/25 16:40 17:16 18:40 WBC (4.4-10.8) 10^3/uL RBC (4.36-5.78) 10^6/uL Hgb (13.5-17.5) g/dL Hct (40.0-50.0) % MCV (80-95) fL MCH (27.0-33.0) pg MCHC (32.0-36.0) % RDW (11.8-14.1) % Plt Count (130-400) 10^3/uL MPV (8.0-11.0) fL Immature Gran % % Neutrophils % % Lymphocytes % % Monocytes % % Eosinophils % % Basophils % % Nucleated RBC % (0.0-0.3) % Absolute Neutrophils (1.2-6.7) 10^3/uL Absolute Lymphocytes (1.2-3.4) 10^3/uL Absolute Monocytes (0.1-0.8) 10^3/uL Absolute Eosinophils (0.0-0.7) 10^3/uL Absolute Basophils (0.0-0.2) 10^3/uL PT (9.1-11.1) sec INR (0.9-1.1) APTT (20.6-30.2) sec VBG pH (7.31-7.41) VBG pCO2 (41-51) mmHg VBG pO2 mmHg VBG HCO3 (23-28) mmol/L VBG Total CO2 (24-29) mmol/L VBG O2 Saturation % VBG Base Excess (-2-3) mmol/L VBG Lactate (<or=2.0) mmol/L Sodium (136-145) mmol/L Potassium (3.5-5.1) mmol/L Chloride (98-107) mmol/L Carbon Dioxide (21.0-32.0) mmol/L Anion Gap (3-11) mmol/L BUN (7-18) mg/dL Creatinine (0.70-1.30) mg/dL Est GFR (CKD-EPI 2020) (mL/min/1.73m2) Glucose (74-106) mg/dL Calcium (8.5-10.1) mg/dL Total Bilirubin (0.2-1.0) mg/dL AST (15-37) U/L ALT (16-63) U/L Alkaline Phosphatase (46-116) U/L Troponin I (<or=76) ng/L 14 16 Total Protein (6.4-8.2) g/dL Albumin (3.4-5.0) g/dL TSH (0.36-3.74) uIU/mL 0.30 L Urine Color (Yellow) Urine Clarity (Clear) Urine pH (5-8) Ur Specific [place] (1.005-1.025) Urine Protein (Neg-Trace) mg/dL Urine Ketones (Negative) mg/dL Urine Blood (Negative) Urine Nitrite (Negative) Urine Bilirubin (Negative) Urine Urobilinogen (Up to 0.2) mg/dL Ur Leukocyte Esterase (Negative) Urine RBC (0-2) HPF Urine WBC (0-5) HPF Ur Epithelial Cells (Negative) HPF Urine Crystals (Negative) HPF Urine Bacteria (Negative) HPF Urine Casts (Negative) LPF Urine Mucus (Negative) Urine Other (Negative) Ur Culture Indicated? Urine Glucose (Negative) mg/dL COVID-19 Source Nasopharynx SARS-CoV-2 (PCR) (Negative) Negative Influenza Type A (PCR) (Negative) Negative Influenza Type B (PCR) (Negative) Negative RSV (PCR) (Negative) Negative Procedure Central Line Placement Date of Procedure: 01/31/25 Time of Procedure: 23:57 Provider that performed the procedure: Joaquín Godoy Indication: Central venous access, Definitive access, Emergent access and Hypotension Patient Consented: Written Standard Time Out Performed: Yes Sterility: Sterile Local Anesthetic: Lidocaine 1% Amount of anesthetic used(mL): 5 Laterality: Right Insertion Site: Internal Jugular (IJ) Central Line Type: Triple Lumen Catheter Insertion Procedure: 1% Lidocaine to skin and subcutaneous tissue with 25g needle, Vessel accessed with needle, Vessel accessed with catheter over needle, catheter advanced, Guidewire placed with ease, Extension tubing fills with blood, then empties easily with gravity, Dermatotomy (skin marcelino) made with scalpel, Dilator placed with resistance, Introducer/Catheter placed without resistance, Guidewire removed and Claves placed, blood withdrawn, ports flushed and clamped Ultrasound: Used/Image Saved Number of Attempts(see previous attempts in note section): 1 Post Procedure: good blood return, all ports aspirated, flushed, capped and sutured in place with 2-0 silk Post Procedure X-Ray: tip of catheter in good position Dressing: Tegaderm applied and BioPatch applied Procedure Tolerated: No Complications and Patient tolerated well Procedure Outcome: Successful Medical Decision Making 84-year-old male with a past medical history of chronic kidney disease, pulmonary hypertension, pacemaker, coronary artery disease, CABG x 4, pr ostatectomy, presents today for evaluation of feeling unwell. Patient states that last night he had a mild headache, this morning when he woke up he took Advil and the headache went away, however throughout the rest of the day he felt notably weak, had episodes of vomiting and nausea, did not feel well. His house was warm, but not excessive. He also admits to left lower quadrant abdominal pain for the last 2 years but denies any other complaints. No other modifying factors. He denies any cough or fever or chills. He is on baseline oxygen at 2 to 3 L. Exam demonstrates dry mucous membranes, mild tenderness in the right abdomen. Patient is tachycardic and febrile here. He is also hypertensive. Differential includes sepsis from a viral or bacterial etiology, UTI pneumonia or potential abdominal pathology. Heatstroke less likely given the fact that his home was not excessively hot. Will evaluate for etiologies, monitor closely and reassess. Because of the patient meeting sepsis criteria, we will start broad- spectrum antibiotics of Vanco Zosyn and doxycycline. Especially considering potential tickborne etiology. Patient's labs returned, mildly low WBC count, platelet count low at 80, mild lymphopenia, these findings are concerning, may be reflective of viral or tickborne illness. In addition to this, VBG demonstrates chronic only elevated pCO2 with a normal pH, lactate is normal. Electrolytes are relatively unremarkable, with an elevated BUN concerning for dehydration. Serial troponins are normal, urinalysis shows no evidence of UTI. COVID flu and RSV testing is negative. Will send for tick panel. CT scan of the head shows no evidence of bleed or tumor. CT scan of the chest abdomen pelvis shows no evidence of pneumonia but there is evidence of concent leon wall thickening of the rectosigmoid junction, concerning for inflammation infection or neoplasm. I did discuss this with surgery Dr. Fonseca, and he recommends starting the patient on MiraLAX for colon cleanout for potential colonoscopy. With the patient meeting sepsis criteria, I do feel that admission for continued antibiotic management is indicated. During the patient's stay his heart rate increased even with a liter of IV fluids, his blood pressure decreased into the 70s. Decision was made to place central line and started on pressors. Hospitalist was contacted, Dr. Birmingham agrees with the assessment and plan. Patient will be admitted to the ICU. I have extensively reviewed the treatment plan with the patient. I have addressed all patient concerns at this time. I have also discussed the plan with the admitting physician and they agree with the current assessment and plan and have agreed to assume responsibility for the patient. All parties demonstrate verbal understanding and agreement with our assessment and plan at this time. The documentation in this chart was dictated using [employer] dictation software. Please excuse any dictation errors. FINDINGS: Tubes, catheters and devices: Left subclavian pacemaker leads are identified with their tips in the right atrium and right ventricle respectively. Right jugular central venous catheter identified with its tip at the junction of the superior vena cava and right atrium. Lungs: No consolidating infiltrates. Left basilar subsegmental atelectatic changes. Pleural spaces: Bilateral pleural plaques [id number]. Heart/Mediastinum: Unremarkable. No cardiomegaly. Bones/joints: Unremarkable. IMPRESSION: 1. Left basilar subsegmental atelectatic changes with an early infiltrate not excluded. 2. Right jugular central venous catheter identified with its tip at the junction of the superior vena cava and right atrium. Thank you for allowing us to participate in the care of your patient. FINDINGS: Ventricles and Extra axial spaces: Normal in size and morphology for the patient's age. Hemorrhage: None. Cerebral parenchyma: There are areas of decreased attenuation in the white matter most consistent with chronic microvascular ischemic disease. There is no evidence of an acute territorial infarct or mass effect. Midline shift: None. Brainstem/Cerebellum: Normal. Calvarium: Normal. Visualized Paranasal sinuses/Mastoids: Clear. Soft Tissues: Unremarkable. IMPRESSION: No acute intracranial process. FINDINGS: Lack of IV contrast limits the evaluation of the abdominal and pelvic organs. CHEST: Tracheobronchial tree: Patent where visualized. No bronchiectasis. Pulmonary parenchyma: There are stable areas of scarring in the lungs particularly the lower lobes. No new infiltrates are seen. No suspicious pulmonary nodules are present. Mediastinum and Katya: No dominant adenopathy or fluid collection. The esophagus is unremarkable. Thyroid gland: Unremarkable. Pleura: No effusion or pneumothorax. There are pleural calcifications again noted. This can be seen with prior exposure to asbestos. There is a stable small encapsulated fluid collection in the left lung base. Heart: Cardiomegaly. Coronary artery calcification and/or stents are present. There is an aortic valve replacement. No pericardial effusion. Aorta: Thoracic aorta non-dilated. Atherosclerotic calcification is present. Lymph nodes: Within normal limits. Bones:Within normal limits for the patient's age. Posterior spinal fusion is seen from L3 through L5. Age-appropriate degenerative changes are present throughout the thoracic and lumbar spine. Sternal wires are present. Tubes, Catheters, and Lines: There is a cardiac pacing device in place. The wires are in appropriate position. Soft tissues: Unremarkable. ABDOMEN: Liver: Normal density. No measurable mass. Gallbladder and Biliary Tract: No radiodense calculus or dilation. Pancreas: There is pancreatic atrophy. No evidence of a pancreatic mass or peripancreatic fluid collection. Spleen: Normal. Adrenals: There is a stable right adrenal nodule. It is probably an adenoma. No follow-up is recommended. The left adrenal gland is unremarkable. Kidneys: Normal size, contour and axis. No radiodense stones or obstructive uropathy. Stable cystic lesions on the kidneys. No follow-up is recommended. There is a stable peripherally calcified lesion in the inferior pole of the left kidney. There is a stable partially calcified cystic lesion in the superior pole of the right kidney. Abdominal Aorta: There is a 3.8 x 3.8 cm infrarenal abdominal aortic aneurysm noted again. Atherosclerotic calcification is present. Bowel: There is a 4 cm length of thickening of the wall in the of wall thickening in the rectosigmoid colon (series 2 images 256 through 266). There is a large amount of stool in the colon. There is a normal appendix present. Peritoneal Cavity: No ascites, collection or mesenteric inflammatory response. No free air. Lymph Nodes: Within normal limits. Bones: Within normal limits for the patient's age. Soft Tissues: Unremarkable. PELVIS: Bladder: Symmetric distention, no gross wall thickening. Reproductive Organs: The prostate gland is small or absent. Lymph Nodes: Within normal limits. Bones: Within normal limits for the patient's age. IMPRESSION: 1. There is no acute pulmonary process. 2. Short segment of concentric wall thickening at the rectosigmoid junction. Differential considerations include collapsed/nondistended bowel, inflammation/infection or neoplasm. Colonoscopy may be considered for further evaluation. 3. Large amount of stool in the colon consistent with constipation. Critical Care Time Critical Care Time Critical Care Time: Yes Total Critical Care Time: 45 Attestation: Upon my evaluation, this patient had a high probability of imminent or life- threatening deterioration, which required my direct attention, intervention, and personal management. I have personally provided 45 minutes of critical care time exclusive of time spent on separately billable procedures. Time includes review of laboratory data, radiology results, discussion with consultants, and monitoring for potential decompensation. Interventions were performed as documented. [facility] All Active Problems (Updated 02/01/25 @ 00:00 by Joaquín Godoy DO) Thrombocytopenia (Chronic) Colitis (Acute) Septic shock (Acute) Colitis (Acute) Septic shock (Acute) Advanced care planning/counseling discussion (Acute) Palliative care encounter (Acute) CKD (chronic kidney disease) stage 3, GFR 30-59 ml/min (Acute) Ambulatory dysfunction (Acute) Mild cognitive impairment (Acute) Hx Head trauma Dependence on continuous supplemental oxygen (Acute) Chronic respiratory failure (Acute) Pulmonary hypertension (Acute) Acute on chronic respiratory failure with hypoxia and hypercapnia (Acute) Chronic hypoxic respiratory failure (Chronic) Asbestos-induced pleural plaque (Acute) Lumbar stenosis (Acute) 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 COPD (chronic obstructive pulmonary disease) (Chronic) Pseudophakia (Acute) Chronic kidney disease (CKD) (Chronic) BMI 30.0-30.9,adult (Acute) Prediabetes (Acute) Mild memory disturbance (Acute) Dyspnea on exertion (Acute) Acute hypotension (Acute) Closed head injury (Acute) Medical History Arteriosclerosis Polyneuropathy Pain in thoracic spine Obesity (BMI 30-39.9) Hearing loss Chronic hypoxic-ischemic brain injury Kidney lesion Lower urinary tract symptoms (LUTS) Vascular disorder CAD (coronary artery disease) Vitamin D deficiency (05/22/17) Calculus of kidney (05/22/17) Asbestosis (05/22/17) Prostate cancer, primary, with metastasis from prostate to other site Anemia Peripheral neuropathy Sick sinus syndrome Renal mass Thrombocytopenia Abdominal aortic aneurysm Surgical History H/O prosthetic heart valve Hx of artificial eye lens S/P coronary artery stent placement S/P arthroscopic knee surgery S/P prostatectomy S/P CABG x 4 S/P cervical discectomy S/P lumbar spine operation Hx of aortic valve replacement Family History Mother Essential hypertension Congestive heart failure Father Diabetes Stroke Social History Smoking/Tobacco Use Status: Former Tobacco Use Smoking risk assessment performed?: Yes Alcohol Intake: current Alcohol Intake frequency: a few times a month Drug use: Never Substance use type: does not use Household members: spouse Housing: house 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
[2025-02-01] VITALS (107 sets, daily range): BP systolic 84–117; BP diastolic 46–96; PULSE 69–164; RESP 2–31; TEMP 36.4–37.2; O2SAT 84–100
[2025-02-01] MEDS: PIPERACILLIN/TAZO 3.375 GM in Normal Saline 50 ML IVPB ×5 (00:19→23:44)
[2025-02-01] MEDS: Normal Saline 1,000 ML 150 ML IV (03:22)
[2025-02-01] MEDS: DOXYCYCLINE 100 MG in Normal Saline 100 ML IVPB ×2 (05:03→16:58)
[2025-02-01] MEDS: Normal Saline Flush 10 ML SYR IVP ×3 (05:29→19:06)
[2025-02-01] MEDS: Albuterol/Ipratropium 3 ML UPD VIAL UPD ×4 (05:50→23:00)
[2025-02-01 06:19] LABS: HCT 33.3 % (40.0-50.0); HGB 10.5 g/dL (13.5-17.5); MCH 30.7 pg (27.0-33.0); MCHC 31.5 % (32.0-36.0); MCV 97 fL (80-95); MPV 9.6 fL (8.0-11.0); RBC 3.42 10^6/uL (4.36-5.78); RDW-SD 57.4 fL; WBC 2.58 10^3/uL (4.4-10.8)
[2025-02-01 06:31] LABS: INR 1.1 (0.9-1.1)
[2025-02-01 06:42] LABS: ALT 43 U/L (16-63); AST 39 U/L (15-37); Albumin 2.7 g/dL (3.4-5.0); Alkaline Phosphatase 145 U/L (46-116); Anion Gap 4.2 mmol/L (3-11); BUN 20 mg/dL (7-18); Bilirubin, Total 0.5 mg/dL (0.2-1.0); CO2 31.8 mmol/L (21.0-32.0); CREATININE 0.9 mg/dL (0.70-1.30); Calcium 7.9 mg/dL (8.5-10.1); Chloride 106 mmol/L (98-107); Glucose 89 mg/dL (74-106); Magnesium 1.9 mg/dL (1.8-2.4); Potassium 4.1 mmol/L (3.5-5.1); Sodium 142 mmol/L (136-145); Total Protein 5.3 g/dL (6.4-8.2)
[2025-02-01 06:52] LABS: Platelet Count 70 10^3/uL (130-400)
[2025-02-01] MEDS: Gabapentin 100 MG CAP PO ×2 (08:49→19:03)
[2025-02-01] MEDS: Aspirin E.C. 81 MG TABEC PO (08:49)
[2025-02-01] MEDS: Enoxaparin 40 MG/0.4 ML SYR SC (08:49)
[2025-02-01] MEDS: Clopidogrel 75 MG TAB PO (08:49)
--- NOTE | 2025-02-01 09:15 | PDOC.CMIN ---
Date of service: 02/01/25 Time of Service: 09:15 Care Management Initial Assmt Initial Assessment Reason for Hospitalization: sepsis, respiratory failure Functional Status/Living Situation Patient Presentation: Ramón presented to the ED yesterday evening with c/o generalized weakness for 3 days, along with worsened respiratory status. He was found to have fever, leukopenia, thrombocytopenia. He was tacchypneic with hypoxia and hypercapnia. He was admitted to ICU for close monitoring. Ramón was sitting up in the bed when CM met with him today. He was very pleasant with CM. He looked well, but stated that he was feeling a lot better, but very tired. Ramón is independent in the community. He lives with his and his daughter, Maddy. Daughter, Lisa, lives in [place]. Both girls are supportive. Ramón denied the need for any increased supports or services. 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 He now enjoys his woodshed making kindling and [employer] crafts. Medications Medication Management: No Issues/Barriers identified Physical Functioning/Mobility Assistive Device: Uses O2 at night and as needed, 2L at baseline, through [employer]. Advance Directives Advance Directives: Do you have an Advance Directive: Y 10/03/17, 12:49 AD On File at [facility]: N 10/03/17, 12:49 Date Asked 01/31/25 01/31/25, 15:52 AD Date Reviewed COLST On File at [facility] COLST Date Scanned Code Status Resuscitation Status Full Code Insurance Coverage/Financial Issues Insurance: [employer] [place] Care Team Visit Care Team Role Provider Type Jaylan Quintero MD [facility] STAFF PHYSICIAN Wilber Luna Primary Care Provider NON-[facility] STAFF PHYSICIAN Joaquín Godoy DO Emergency Provider [facility] STAFF PHYSICIAN Miko [place] Admit Provider NON-[facility] STAFF PHYSICIAN Attending Provider Discharge Potential Discharge Needs: PCP F/U Appt Anticipated Barriers to Discharge: None Identified Patient/Family Education Needs: Review discharge instructions, discuss Ask Me Three Transportation: Private vehicle Plan: Anticipate Romaine will return home once medically cleared with no new services. He will transport home via private vehicle by family. He will follow up with his PCP and discharge plan of care. CM will continue to follow. Social Determinants of Health Screening Social Determinants of health last assessed in clinic: 02/01/25 Will the Patient Participate in the Screening?: Yes Do you worry about having a steady place to live?: no Problems where you live: no known problems In the past 12 months, have you had to go without electric, gas, oil or water in your home?: no 1. Within the past 12 months, we worried whether our food would run out before we got money to buy more.: Never true 2. Within the past 12 months, the food we bought just didn't last and we didn't have money to get more.: Never true Has lack of transportation kept you from medical appointments or from doing things needed for daily living?: no Has anyone in your life made you feel unsafe or unsupported?: no How hard is it for you to pay for the very basics like food, housing, medical care, and heating? Would you say it is:: Not hard at all Do you want help finding or keeping work or a job?: I do not need or want help If for any reason you need help with day-to-day activities such as bathing, preparing meals, shopping, managing finances, etc., do you get the help you need?: I don?t need any help How often do you feel lonely or isolated from those around you?: Never Do you speak a language other than Belarusian at home?: No Does the patient want assistance with any of the above?: No PFSH All Active Problems (Updated 02/01/25 @ 11:01 by Jaylan Quintero) Discharge planning issues (Acute) DVT prophylaxis (Acute) Pancytopenia (Acute) Colitis (Acute) Septic shock (Acute) Colitis (Acute) Septic shock (Acute) Advanced care planning/counseling discussion (Acute) Palliative care encounter (Acute) CKD (chronic kidney disease) stage 3, GFR 30-59 ml/min (Acute) Ambulatory dysfunction (Acute) Mild cognitive impairment (Acute) Hx Head trauma Dependence on continuous supplemental oxygen (Acute) Chronic respiratory failure (Acute) Pulmonary hypertension (Acute) Acute on chronic respiratory failure with hypoxia and hypercapnia (Acute) Chronic hypoxic respiratory failure (Chronic) Asbestos-induced pleural plaque (Acute) Lumbar stenosis (Acute) 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 COPD (chronic obstructive pulmonary disease) (Chronic) Pseudophakia (Acute) Chronic kidney disease (CKD) (Chronic) BMI 30.0-30.9,adult (Acute) Prediabetes (Acute) Mild memory disturbance (Acute) Dyspnea on exertion (Acute) Closed head injury (Acute) Medical History Arteriosclerosis Polyneuropathy Pain in thoracic spine Obesity (BMI 30-39.9) Hearing loss Chronic hypoxic-ischemic brain injury Kidney lesion Lower urinary tract symptoms (LUTS) Vascular disorder CAD (coronary artery disease) Vitamin D deficiency (05/22/17) Calculus of kidney (05/22/17) Asbestosis (05/22/17) Prostate cancer, primary, with metastasis from prostate to other site Anemia Peripheral neuropathy Sick sinus syndrome Renal mass Thrombocytopenia Abdominal aortic aneurysm Surgical History H/O prosthetic heart valve Hx of artificial eye lens S/P coronary artery stent placement S/P arthroscopic knee surgery S/P prostatectomy S/P CABG x 4 S/P cervical discectomy S/P lumbar spine operation Hx of aortic valve replacement Family History Mother Essential hypertension Congestive heart failure Father Diabetes Stroke Social History Smoking/Tobacco Use Status: Former Tobacco Use Smoking risk assessment performed?: Yes Alcohol Intake: current Alcohol Intake frequency: a few times a month Drug use: Never Substance use type: does not use Household members: spouse Housing: house 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
--- NOTE | 2025-02-01 09:25 | W.PM.PROGNOT ---
Date of Service Date of service: 02/01/25 Time of Service: : Assessment and Plan Assessment and plan (1) Septic shock: Start date: 01/31/25 Status: Acute Assessment and plan: Stabilized overnight, hemodynamically stable off norepinephrine. Good urine output Taking po, cut NS rate from 150 to 75ml. Unclear source, but LFTs/WBC/plts c/w anaplasmosis Continue pip/tazo, vanco, doxycycline with cultures pending. (2) Colitis: Start date: 01/31/25 Status: Acute Assessment and plan: Mild findings on CT. No current abdominal pain/tenderness, no recent BM. I don't think this is cause of sepsis, but being covered with broad-spectrum antibiotic coverage for sepsis. (3) Acute on chronic respiratory failure with hypoxia and hypercapnia: Start date: 01/31/25 Status: Acute Assessment and plan: Stable from respiratory standpoint, no signs of hypercarbia. He is established with palliative. (4) Mixed restrictive and obstructive lung disease: Status: Chronic Assessment and plan: A/w asbestosis. Continued aggressive nebulizer treatment and chronic therapy. As above this appears stable. Steroids can be initiated if he has increasing respiratory symptoms. (5) Thrombocytopenia: Assessment and plan: Anaplasmosis may cause this problem and this appears to be acute with his acute presentation. (6) CAD (coronary artery disease): Assessment and plan: Patient had negative troponins, clincally stable Recent echocardiogram does show preserved left ventricular ejection fraction. (7) Pancytopenia: Status: Acute Assessment and plan: plts low as above, also WBC and h/h. could be acute illness vs evolution of hematopoetic disorder. Follow. Get B12. (8) DVT prophylaxis: Status: Acute Assessment and plan: on enoxaparin, but monitor plts (9) Discharge planning issues: Status: Acute Subjective Subjective Patient reports: voiding w/o difficulty; denies nausea, vomiting or fever Interval history since last seen: Events: Off norepinephrine drip He is feeling better. Has chronic MINOR, not bad now. He is drinking fluids, able to eat. Headache that started this illness 4 days ago has improved. Exam Narrative Exam Narrative: General: Alert and oriented x 3, no distress at rest. Lungs: Bilateral inspiratory coarse crackles at bases. No wheeze, normal effort on 2 liters NC. Heart: Distant heart sounds with regular rate rhythm, 1/6 systolic murmur. No rubs or gallops appreciated. Sternal scar. Palpable subcutaneous pacemaker left upper chest. Abdomen: Soft, NT/ND Extremities: Without clubbing, cyanosis, or pitting edema. warm Objective Last Vital Signs Temp 36.5 C 02/01/25 08:46 Pulse 76 02/01/25 08:46 Resp 25 H 02/01/25 08:46 BP 96/49 L 02/01/25 08:46 Pulse Ox 97 02/01/25 08:46 Laboratory Results - last 24 hr 01/31/25 01/31/25 01/31/25 15:15 15:51 16:35 WBC 3.80 L RBC 4.05 L Hgb 12.6 L Hct 38.6 L MCV 95 MCH 31.1 MCHC 32.6 RDW 15.5 H Plt Count 80 L MPV 9.3 Immature Gran % 0.8 Neutrophils % 88.2 Lymphocytes % 5.5 Monocytes % 4.7 Eosinophils % 0.3 Basophils % 0.5 Nucleated RBC % 0.0 Absolute Neutrophils 3.35 Absolute Lymphocytes 0.21 L Absolute Monocytes 0.18 Absolute Eosinophils 0.01 Absolute Basophils 0.02 PT 10.8 INR 1.1 APTT 22.5 VBG pH 7.32 VBG pCO2 63 H* VBG pO2 42 VBG HCO3 32 H VBG Total CO2 30 H VBG O2 Saturation 72 VBG Base Excess 6 H VBG Lactate 0.9 Sodium 138 Potassium 4.5 Chloride 101 Carbon Dioxide 32.3 H Anion Gap 4.7 BUN 19 H Creatinine 1.0 Est GFR (CKD-EPI 2020) 73.76 Glucose 129 H Calcium 8.4 L Magnesium Total Bilirubin 0.9 AST 54 H ALT 53 Alkaline Phosphatase 179 H Troponin I 12 Total Protein 6.4 Albumin 3.4 TSH 0.46 Urine Color Yellow Urine Clarity Clear Urine pH 7.0 Ur Specific [place] 1.020 Urine Protein 100 H Urine Ketones 15 H Urine Blood Trace-intact H Urine Nitrite Negative Urine Bilirubin Negative Urine Urobilinogen 2.0 H Ur Leukocyte Esterase Negative Urine RBC 3-5 H Urine WBC 0-2 Ur Epithelial Cells Rare Urine Crystals Negative Urine Bacteria Negative Urine Casts Negative Urine Mucus Negative Urine Other Rare Transitional Ur Culture Indicated? No Urine Glucose Negative COVID-19 Source SARS-CoV-2 (PCR) Influenza Type A (PCR) Influenza Type B (PCR) RSV (PCR) 01/31/25 01/31/25 01/31/25 16:40 17:16 18:40 WBC RBC Hgb Hct MCV MCH MCHC RDW Plt Count MPV Immature Gran % Neutrophils % Lymphocytes % Monocytes % Eosinophils % Basophils % Nucleated RBC % Absolute Neutrophils Absolute Lymphocytes Absolute Monocytes Absolute Eosinophils Absolute Basophils PT INR APTT VBG pH VBG pCO2 VBG pO2 VBG HCO3 VBG Total CO2 VBG O2 Saturation VBG Base Excess VBG Lactate Sodium Potassium Chloride Carbon Dioxide Anion Gap BUN Creatinine Est GFR (CKD-EPI 2020) Glucose Calcium Magnesium Total Bilirubin AST ALT Alkaline Phosphatase Troponin I 14 16 Total Protein Albumin TSH 0.30 L Urine Color Urine Clarity Urine pH Ur Specific [place] Urine Protein Urine Ketones Urine Blood Urine Nitrite Urine Bilirubin Urine Urobilinogen Ur Leukocyte Esterase Urine RBC Urine WBC Ur Epithelial Cells Urine Crystals Urine Bacteria Urine Casts Urine Mucus Urine Other Ur Culture Indicated? Urine Glucose COVID-19 Source Nasopharynx SARS-CoV-2 (PCR) Negative Influenza Type A (PCR) Negative Influenza Type B (PCR) Negative RSV (PCR) Negative 02/01/25 05:38 WBC 2.58 L RBC 3.42 L Hgb 10.5 L D Hct 33.3 L MCV 97 H MCH 30.7 MCHC 31.5 L RDW 16.0 H Plt Count 70 L MPV 9.6 Immature Gran % Neutrophils % Lymphocytes % Monocytes % Eosinophils % Basophils % Nucleated RBC % Absolute Neutrophils Absolute Lymphocytes Absolute Monocytes Absolute Eosinophils Absolute Basophils PT 11.0 INR 1.1 APTT VBG pH VBG pCO2 VBG pO2 VBG HCO3 VBG Total CO2 VBG O2 Saturation VBG Base Excess VBG Lactate Sodium 142 Potassium 4.1 Chloride 106 Carbon Dioxide 31.8 Anion Gap 4.2 BUN 20 H Creatinine 0.9 Est GFR (CKD-EPI 2020) 83.70 Glucose 89 Calcium 7.9 L Magnesium 1.9 Total Bilirubin 0.5 AST 39 H ALT 43 Alkaline Phosphatase 145 H Troponin I Total Protein 5.3 L Albumin 2.7 L TSH Urine Color Urine Clarity Urine pH Ur Specific [place] Urine Protein Urine Ketones Urine Blood Urine Nitrite Urine Bilirubin Urine Urobilinogen Ur Leukocyte Esterase Urine RBC Urine WBC Ur Epithelial Cells Urine Crystals Urine Bacteria Urine Casts Urine Mucus Urine Other Ur Culture Indicated? Urine Glucose COVID-19 Source SARS-CoV-2 (PCR) Influenza Type A (PCR) Influenza Type B (PCR) RSV (PCR) Time Spent with Patient Time Spent with Patient: >50 minutes Time was spent: preparing to see the patient(eg.review tests), obtaining and/or reviewing separately otained hiistory, ordering medications,tests, procedures, referring, communicating with other health rn acute care, indepentently interpreting results, counseling the patient and care coordination
[2025-02-01 10:54] LABS: Vancomycin, Random 7.5 ug/mL
[2025-02-01] MEDS: VANCOMYCIN/WATER (PEG) 1.5 GM/300 ML BAG IVPB (12:04)
[2025-02-01] MEDS: Polyethylene Glycol 3350 17 GM PACKET PO (12:17)
[2025-02-01] MEDS: Docusate Sodium 100 MG CAP PO (12:23)
[2025-02-01] MEDS: Normal Saline 1,000 ML 75 ML IV (13:46)
--- NOTE | 2025-02-01 14:18 | PHA.REVIEW2 ---
Pharmacy Admission Review Admission Clinical Review Admission Pharmacy Review: Discharge planning issues (Acute) DVT prophylaxis (Acute) Pancytopenia (Acute) Colitis (Acute) Septic shock (Acute) Acute on chronic respiratory failure with hypoxia and hypercapnia (Acute) olodaterol (From Stiolto Respimat) Adverse Reaction (Mild, Verified 01/31/25 15:31) Nausea tiotropium (From Stiolto Respimat) Adverse Reaction (Mild, Verified 01/31/25 15:31) Nausea Resuscitation Status Full Code Height 5 ft 6 in Weight 68.4 kg Pharmacy Admission Review Renal Dosing Renal Dosing: BUN 20 mg/dL (7-18) H 02/01/25 05:38 Creatinine 0.9 mg/dL (0.70-1.30) 02/01/25 05:38 Medications needing adjustments: Reviewed (CrCl 52.2 mL/min, BUN increased from 19) List of meds needing interventions: Current medications are okay Anticoagulation Anticoagulation: Hgb 10.5 g/dL (13.5-17.5) L D 02/01/25 05:38 Hct 33.3 % (40.0-50.0) L 02/01/25 05:38 Plt Count 70 10^3/uL (130-400) L 02/01/25 05:38 INR 1.1 (0.9-1.1) 02/01/25 05:38 Creatinine 0.9 mg/dL (0.70-1.30) 02/01/25 05:38 DVT Prophylaxis: Reviewed (Hgb decreased from 12.6, PLT count decreased from 80) Medications: Enoxaparin (40mg daily) Relevant Labs Relevant Labs: Sodium 142 mmol/L (136-145) 02/01/25 05:38 Potassium 4.1 mmol/L (3.5-5.1) 02/01/25 05:38 Chloride 106 mmol/L (98-107) 02/01/25 05:38 Magnesium 1.9 mg/dL (1.8-2.4) 02/01/25 05:38 Electrolytes, C-Reactive P, ESR: Reviewed DM Control DM Control: Glucose 89 mg/dL (74-106) 02/01/25 05:38 Finger Stick Blood Glucose 115 1153 Finger Stick Blood Glucose 115 1153 Finger Stick Blood Glucose 82 0716 Finger Stick Blood Glucose 82 0716 DM Control: Reviewed Insulin Dosing, Diabetic Medication: Has order for SS insulin Cardiac Review Cardiac Review: Troponin I 16 ng/L (<or=76) 01/31/25 18:40 Blood Pressure 103/67 1330 Blood Pressure 86/49 1232 Blood Pressure 96/49 0846 Blood Pressure 109/53 0601 Blood Pressure 103/54 0400 BP, HR, EF%: Reviewed (HR WNL, oxygen flow rate = 0.5) QTc Review QTc: Reviewed (475 from 01/31) IV to PO Switch IV Medications: Reviewed (doxycycline, Zosyn and vancomycin) Home Meds Home Med List reviewed: Intervened Relevent Home Meds Not ordered & why?: furosemide, triamcinolone cream (PRN) and Anoro Ellipta Spoke to provider regarding Anoro, provider looking into it Current Meds Current Medication Order Review: Intervened Comments: Changed IV ED access order Asked provider if norepi infusion order could be discontinued, provider discontinued. Pharmacy Antibiotic Review Relevant Labs: WBC 2.58 10^3/uL (4.4-10.8) L 02/01/25 05:38 Temperature 37.2 C Temperature 36.5 C Temperature 36.4 C Pharmacy Antibiotic Activity: C/S review and Reviewed, no change Comments: Patient is on doxycycline, Zosyn and vancomycin, day 1, for septic shock/colitis/possible tickborne illness. Ordered vancomycin level for this morning at 1000, level was 7.5. Current dose 1500mg q24h with predicted AUC of 520. Reorder level if there are any significant changes in renal function or prolonged treatment required. Blood cultures are pending.
[2025-02-01] MEDS: Acetaminophen 325 MG TAB PO (19:03)
[2025-02-01] MEDS: Atorvastatin 40 MG TAB PO (19:03)
[2025-02-01] MEDS: Melatonin 3 MG TAB 6 MG PO (19:04)
[2025-02-01] MEDS: Insulin Aspart 300 UNITS/3 ML PEN SC (23:03)
[2025-02-02] VITALS (20 sets, daily range): BP systolic 98–133; BP diastolic 45–72; PULSE 67–82; RESP 2–31; TEMP 35.9–36.5; O2SAT 85–98
[2025-02-02] MEDS: DOXYCYCLINE 100 MG in Normal Saline 100 ML IVPB ×2 (03:44→16:17)
[2025-02-02] MEDS: Normal Saline Flush 10 ML SYR IVP ×3 (05:20→21:05)
[2025-02-02] MEDS: PIPERACILLIN/TAZO 3.375 GM in Normal Saline 50 ML IVPB ×3 (05:53→17:45)
[2025-02-02 06:27] LABS: HCT 31.5 % (40.0-50.0); HGB 10.1 g/dL (13.5-17.5); MCH 31.6 pg (27.0-33.0); MCHC 32.1 % (32.0-36.0); MCV 98 fL (80-95); MPV 9.7 fL (8.0-11.0); RDW 15.9 % (11.8-14.1); RDW-SD 57.5 fL
[2025-02-02 06:58] LABS: Platelet Count 77 10^3/uL (130-400)
[2025-02-02 08:04] LABS: ALT 44 U/L (16-63); AST 38 U/L (15-37); Albumin 2.6 g/dL (3.4-5.0); Alkaline Phosphatase 136 U/L (46-116); Anion Gap 3.9 mmol/L (3-11); BUN 16 mg/dL (7-18); Bilirubin, Total 0.4 mg/dL (0.2-1.0); CO2 31.1 mmol/L (21.0-32.0); CREATININE 1.1 mg/dL (0.70-1.30); Calcium 8.2 mg/dL (8.5-10.1); Chloride 108 mmol/L (98-107); Estimated GFR 65.79 (mL/min/1.73m2); Glucose 98 mg/dL (74-106); Potassium 4.2 mmol/L (3.5-5.1); Sodium 143 mmol/L (136-145); Total Protein 5.3 g/dL (6.4-8.2)
[2025-02-02] MEDS: Tamsulosin 0.4 MG CAPCR PO (08:30)
[2025-02-02] MEDS: Aspirin E.C. 81 MG TABEC PO (08:30)
[2025-02-02] MEDS: Clopidogrel 75 MG TAB PO (08:31)
[2025-02-02] MEDS: Gabapentin 100 MG CAP PO ×2 (08:31→21:04)
[2025-02-02] MEDS: Enoxaparin 40 MG/0.4 ML SYR SC (08:31)
[2025-02-02] MEDS: Ondansetron 4 MG/2 ML VIAL IVP (08:57)
[2025-02-02 10:24] LABS: Vitamin B12 503 pg/mL (193-986)
--- NOTE | 2025-02-02 12:17 | PT.INIE ---
PT Notes Visit Reasons: Septic Shock Physical Therapy Day Surgery Initial Evaluation Date:02/02/2025 Referring Doctor: Dr Quintero PT Orders: PT CONSULT: Eval for Assistive device, Safety Consult for d/c Precautions: IV access, telemetry, bundy, monitor oxygen sat Patient Profile/Admitting Diagnosis: Pt is an 84yo male presented to the ED from home. He was diagnosed with Septic Shock, colitis, Acute on Chronic respiratory failure with Hypoxia and Hypercapnia, Thrombocytopenia. Pt admitted to ICU received continuous oxygen. PMHX: Thrombocytopenia (Chronic) Colitis (Acute) Septic shock (Acute) Colitis (Acute) Septic shock (Acute) Advanced care planning/counseling discussion (Acute) Palliative care encounter (Acute) CKD (chronic kidney disease) stage 3, GFR 30-59 ml/min (Acute) Ambulatory dysfunction (Acute) Mild cognitive impairment (Acute) Hx Head trauma Dependence on continuous supplemental oxygen (Acute) Chronic respiratory failure (Acute) Pulmonary hypertension (Acute) Acute on chronic respiratory failure with hypoxia and hypercapnia (Acute) Chronic hypoxic respiratory failure (Chronic) Asbestos-induced pleural plaque (Acute) Lumbar stenosis (Acute) 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 COPD (chronic obstructive pulmonary disease) (Chronic) Pseudophakia (Acute) Chronic kidney disease (CKD) (Chronic) BMI 30.0-30.9,adult (Acute) Prediabetes (Acute) Mild memory disturbance (Acute) Dyspnea on exertion (Acute) Acute hypotension (Acute) Closed head injury (Acute) Medical History Arteriosclerosis Polyneuropathy Pain in thoracic spine Obesity (BMI 30-39.9) Hearing loss Chronic hypoxic-ischemic brain injury Kidney lesion Lower urinary tract symptoms (LUTS) Vascular disorder CAD (coronary artery disease) Vitamin D deficiency (05/22/17) Calculus of kidney (05/22/17) Asbestosis (05/22/17) Prostate cancer, primary, with metastasis from prostate to other site Anemia Peripheral neuropathy Sick sinus syndrome Renal mass Thrombocytopenia Abdominal aortic aneurysm Surgical History H/O prosthetic heart valve Hx of artificial eye lens S/P coronary artery stent placement S/P arthroscopic knee surgery S/P prostatectomy S/P CABG x 4 S/P cervical discectomy S/P lumbar spine operation Hx of aortic valve replacement Social History/Home Situation: Resides at home with his and daughter. He has 2 BALDEMAR. Pt furniture walks indoor and uses cane or FWW outdoors independently. Equipment Owned/DME: SPC, FWW, tub seat, home oxygen 2 L/min at night. Subjective: Pt reports he has needed to use oxygen for 3/4 of the day recently. Pt reports he gets winded whenever he walks. Pt reports he has been getting lightheaded when he gets OOB. Objective: [] General Observation: male supine with HOB at 30degrees oxygen at 0.5 L/min via NC, bundy and telemetry in place. Pt's dtr. visiting. Mental Status: Alert and Ox4, cooperative, able to follow instructions, agreeable to participate in evaluation Pain: denies ROM: [] Right Upper Extremity: WNL Left Upper Extremity: WNL Right Lower Extremity: WNL except DF to neutral Left Lower Extremity: WNL except DF to neutral Strength: [] Right Upper Extremity: grossly 3/5 Left Upper Extremity: grossly 3/5 Right Lower Extremity: grossly hip 3-/5, knee 3/5 ankle 3/5 Left Lower Extremity: grossly hip 3-/5, knee 3/5 ankle 3/5 Sensation: impaired d/t neuropathy Bed Mobility/Transfers: [] Supine to sit mod A Sit to stand min A Stand to sit Min A Bed to chair min A with FWW Gait: amb with FWW min A 12 feet increased WB through UE, forward trunk, decreased step length. (+) MINOR Balance: [] Static Sitting: Normal Dynamic Sitting:Fair Static Standing: Good with BUE support Dynamic Standing: Fair- with BUE support Special Tests: [] Mobility Limitations Standardized Measure [] [facility] AM-PAC 6 clicks Basic Mobility Inpatient Short Form: [] Raw Score:15 CMS Score: 57.50 % Informed Consent/Education: Patient instructed in purpose of PT consult. Treatment: [id number]: sit to stand from various surfaces including bed, wheelchair with elevated height of >20 with CGA, commode and bed at 18 height min A; step turn transfer without AD Min A x 2 trials. Assessment: Patient is an 84 yo male who presents with clinical signs and symptoms consistent with current/admitting diagnoses that have resulted to mobility limitations, gait instability, generalized weakness, and impairment of motor control as demonstrated by the following impairment level findings: 1. Decreased strength to BUE/BLE major muscle groups 2. Impaired standing balance 3. Impaired functional activity tolerance 4. impaired breath control/pacing 5. need for supplemental oxygen Impairments are contributing to the following functional limitations: 1. Inability to safely ambulate without assistive device 2. Increase completion time for mobility ADL performance 3. Increased fall risk 4. decline in bed mobility skills 5. decline in transfer skills 6. Difficulty/Inability performing stairs safely Patient is assessed as a moderate complexity based on the following: History: 84-year-old male with impairment level findings, functional limitations, and past medical history as indicated above Examination: Demonstrable impairment in strength, balance, and mobility level with underlying impairments and functional limitations as documented above Presentation: evolving Decision Making: moderate Goals: 1. supervision bed mobility 2. supervision transfers with LRD 3. Supervision ambulation with LRD >150 feet maintaining saturations > 88% 4. supervision 2 steps with rail and cane to safely enter and exit home 5. demonstrate breath control techniques during functional tasks Independently Plan of Care/Treatment Plan: 1-2x/day, 7 days/week x 1 week. Plan of care has been reviewed with the PROCUREMENT INTERN providing the service under Physical Therapy direction. Initiate Physical Therapy intervention for strengthening, bed mobility, transfers, gait, stairs, balance training, use of assistive device. DISCHARGE RECOMMENDATIONS: [] TREATMENT CODE/TIME:[id number] mins for 1 unit, [id number] 13 mins for 1 unit/ [id number], [id number] Thank you for the opportunity to participate in the care of this patient. Pretty Chan PT [facility]
[2025-02-02] MEDS: Albuterol/Ipratropium 3 ML UPD VIAL UPD ×3 (12:38→23:37)
--- NOTE | 2025-02-02 12:54 | W.PC.ACHO ---
Registration Status: ADM IN Primary Language: Preferred Language: Maori ED Information & Data Chief Complaint GenMedical 01/31/25 23:59 Triage Note Headache which started 01/31/25 15:21 yesterday at the top of his head this went away now is slightly there. He reported chronically left sided abdominal pain. Reported that he is feeling weak, nauseated, dry heaving. Enroute he received zofran 4mg Medical / Surgical History (Last Reviewed 02/01/25 @ 06:07 by Miko Birmingham) Arteriosclerosis Polyneuropathy Pain in thoracic spine Obesity (BMI 30-39.9) Hearing loss Chronic hypoxic-ischemic brain injury Kidney lesion Lower urinary tract symptoms (LUTS) Vascular disorder CAD (coronary artery disease) Vitamin D deficiency (05/22/17) Calculus of kidney (05/22/17) Asbestosis (05/22/17) Prostate cancer, primary, with metastasis from prostate to other site Anemia Peripheral neuropathy Sick sinus syndrome Renal mass Thrombocytopenia Abdominal aortic aneurysm (Last Reviewed 02/01/25 @ 06:07 by Miko Birmingham) H/O prosthetic heart valve Hx of artificial eye lens S/P coronary artery stent placement S/P arthroscopic knee surgery S/P prostatectomy S/P CABG x 4 S/P cervical discectomy S/P lumbar spine operation Hx of aortic valve replacement Most Recent Vital Signs Temperature 36.5 C 02/02/25 11:46 Temperature Source Temporal Artery Scan 02/02/25 11:46 Pulse 75 02/02/25 12:38 Pulse 70 02/02/25 10:00 Respiratory Rate 16 02/02/25 12:38 Respiratory Effort Non-Labored, Incrsd Work of Breathing 01/31/25 21:07 Respiratory Depth Shallow 01/31/25 21:07 Respiratory Pattern Tachypnea 01/31/25 21:07 Blood Pressure 122/72 02/02/25 11:46 Blood Pressure Mean 88 02/02/25 11:46 Blood Pressure Position Supine 01/31/25 21:07 Pulse Oximetry 93 02/02/25 12:38 Oxygen Delivery Method Nasal Cannula 02/02/25 12:38 Oxygen Flow Rate 0.5 02/02/25 12:38 Pain Level 0 02/02/25 11:46 Allergies olodaterol (From Stiolto Respimat) Adverse Reaction (Mild, Verified 01/31/25 15:31) Nausea tiotropium (From Stiolto Respimat) Adverse Reaction (Mild, Verified 01/31/25 15:31) Nausea Precautions Isolation Standard precaution 01/31/25 16:23 Active Medications Generic Name Dose Route Start Last Admin Trade Name Freq PRN Reason Stop Dose Admin Acetaminophen 325 mg 01/31/25 20:39 02/01/25 19:03 Acetaminophen 325 Mg Tab PO 325 mg Q6H PRN PRN Administration Albuterol/Ipratropium 3 ml 02/01/25 00:00 02/02/25 12:38 Albuterol/Ipratropium 3 Ml Upd Vial UPD 3 ml Q6H ALICIA Administration Aspirin 81 mg 02/01/25 08:30 02/02/25 08:30 Aspirin E.C. 81 Mg Tabec PO 81 mg DAILY ALICIA Administration Atorvastatin Calcium 40 mg 01/31/25 20:39 02/01/25 19:03 Atorvastatin 40 Mg Tab PO 40 mg HS ALICIA Administration Clopidogrel Bisulfate 75 mg 02/01/25 08:30 02/02/25 08:31 Clopidogrel 75 Mg Tab PO 75 mg DAILY ALICIA Administration Docusate Sodium 100 mg 01/31/25 20:39 02/01/25 12:23 Docusate Sodium 100 Mg Cap PO 100 mg TID PRN PRN Administration Enoxaparin Sodium 40 mg 02/01/25 08:30 02/02/25 08:31 Enoxaparin 40 Mg/0.4 Ml Syr SC 40 mg DAILY ALICIA Administration Gabapentin 100 mg 01/31/25 20:39 02/02/25 08:31 Gabapentin 100 Mg Cap PO 100 mg BID ALICIA Administration Doxycycline Hyclate 100 mg/ 100 mls @ 100 mls/hr 02/01/25 04:00 02/02/25 05:13 Sodium Chloride IVPB Infused Q12H ALICIA Infusion Piperacillin Sod/Tazobactam 50 mls @ 100 mls/hr 02/01/25 00:00 02/02/25 06:43 Sod 3.375 gm/ Sodium Chloride IVPB Infused Q6H ALICIA Infusion Vancomycin/PEG/NADA/Lysine/Water 1.5 gm in 300 mls @ 200 mls/hr 02/01/25 12:00 02/01/25 13:40 Vancocin Injection IVPB Infused Q24H ALICIA Infusion Melatonin 6 mg 02/01/25 20:00 02/01/25 19:04 Melatonin 3 Mg Tab PO 6 mg HS ALICIA Administration Polyethylene Glycol 17 gm 01/31/25 20:39 02/01/25 12:17 Polyethylene Glycol 3350 17 Gm Packet PO 17 gm DAILY PRN PRN Administration Constipation Sodium Chloride 0 ml 01/31/25 15:28 02/02/25 05:20 Normal Saline Flush 10 Ml Syr IVP 40 ml PRN PRN Administration Sodium Chloride 0 ml 01/31/25 20:00 02/02/25 08:35 Normal Saline Flush 10 Ml Syr IVP 40 ml BID ALICIA Administration Tamsulosin HCl 0.4 mg 02/01/25 08:30 02/02/25 08:30 Tamsulosin 0.4 Mg Capcr PO 0.4 mg DAILY ALICIA Administration IV IV Catheter Type [Right Triple Lumen Subclavian Subclavian] IV Catheter Type [Right Saline Lock Antecubital] IV Catheter Type [Left Wrist] Saline Lock IV Catheter Gauge [Right 18 Antecubital] IV Catheter Gauge [Left Wrist] 18 Diagnostics 02/02/25 Range/Units 05:25 WBC 2.50 L (4.4-10.8) 10^3/uL RBC 3.20 L (4.36-5.78) 10^6/uL Hgb 10.1 L (13.5-17.5) g/dL Hct 31.5 L (40.0-50.0) % MCV 98 H (80-95) fL MCH 31.6 (27.0-33.0) pg MCHC 32.1 (32.0-36.0) % RDW 15.9 H (11.8-14.1) % Plt Count 77 L (130-400) 10^3/uL MPV 9.7 (8.0-11.0) fL Sodium 143 (136-145) mmol/L Potassium 4.2 (3.5-5.1) mmol/L Chloride 108 H (98-107) mmol/L Carbon Dioxide 31.1 (21.0-32.0) mmol/L Anion Gap 3.9 (3-11) mmol/L BUN 16 (7-18) mg/dL Creatinine 1.1 (0.70-1.30) mg/dL Est GFR (CKD-EPI 2020) 65.79 (mL/min/1.73m2) Glucose 98 (74-106) mg/dL Calcium 8.2 L (8.5-10.1) mg/dL Magnesium 2.0 (1.8-2.4) mg/dL Total Bilirubin 0.4 (0.2-1.0) mg/dL AST 38 H (15-37) U/L ALT 44 (16-63) U/L Alkaline Phosphatase 136 H (46-116) U/L Total Protein 5.3 L (6.4-8.2) g/dL Albumin 2.6 L (3.4-5.0) g/dL Vitamin B12 503 (193-986) pg/mL 01/31/25 16:00 Blood Culture - Preliminary Blood NO GROWTH 24 HOURS 01/31/25 16:40 Blood Culture - Preliminary Blood NO GROWTH 24 HOURS [id number] Documentation Fingerstick Glucose Start: 01/31/25 20:39 Freq: AC & HS Status: Complete Protocol: Activity Type Activity Date Activity User E-sign Co-sign Detail Recorded Client Recorded Date Recorded By Document 02/02/25 07:18 KATHY MERCER(10) [id number] 02/02/25 07:19 KATHY VEGAON(10) Intake and Output - 24 Hour Total 01/31/25 15:09 thru 02/02/25 09:11 Intake Total 5689.661 Output Total 4325 Balance 1364.661 Weight 62 kg Intake: IV 3249.661 Oral 2440 Output: Urine 4325 Other: Urine Color Yellow Urine Appearance Clear Urine Odor Strong Stool Size Large Stool Characteristics Formed Brown Urinary Catheter Urinary Catheter Date of 01/31/25 Insertion [Urethral (Pitt)] Time of insertion [Urethral ( 22:00 Pitt)] Falls Risk Assessment History of Falls Previous History 01/31/25 21:07 Contributing Factors Unstable 01/31/25 21:07 Ambulatory Aids Uses ambulatory device + 01/31/25 21:07 Tubes/Lines With any additional score 01/31/25 21:07 Gait Evaluation No gait disturbance 01/31/25 21:07 Cognition No cognitive impairment 01/31/25 21:07 Fall Total Score 68 01/31/25 21:07 Level of Risk High Risk 01/31/25 21:07 Problems (Last Reviewed 02/01/25 @ 06:07 by Miko Birmingham) Discharge planning issues (Acute) DVT prophylaxis (Acute) Pancytopenia (Acute) Colitis (Acute) Septic shock (Acute) Acute on chronic respiratory failure with hypoxia and hypercapnia (Acute) 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 Information / Comments: AOx3, VSS, c/o general weakness, SOB with exersion, denies pain. Report received from: Carlos
[2025-02-02] MEDS: VANCOMYCIN/WATER (PEG) 1.5 GM/300 ML BAG IVPB (13:25)
[2025-02-02 13:54] LABS: Lyme Ab w Rflx to Lyme Confirm Negative (Negative)
--- NOTE | 2025-02-02 14:09 | CMPROGNOTE_ITS ---
Date of service: 02/02/25 Time of Service: 09:00 Care Management Progress Note Progress Note Text Progress Note Text: Ramón was sitting up in the bedside chair when CM met with him this morning. He was holding his head in his hands, and was not looking well. He lifted his head to reply that he was feeling really nauseous. He looked like he did not feel well. CM did not stay long, as Ramón was obviously not feeling well. Ramón was moved to the [facility] floor after CM met with him. He was feeling a bit better when CM checked on him later in the day Discharge Potential Discharge Needs: PCP F/U Appt Anticipated Barriers to Discharge: None Identified Patient/Family Education Needs: Review discharge instructions, discuss Ask Me Three Transportation: Private vehicle Plan: Anticipate Romaine will return home once medically cleared with no new services. He will transport home via private vehicle by family. He will follow up with his PCP and discharge plan of care. CM will continue to follow. Social Determinants of Health Screening Social Determinants of health last assessed in clinic: 02/02/25 Will the Patient Participate in the Screening?: Yes Do you worry about having a steady place to live?: no Problems where you live: no known problems In the past 12 months, have you had to go without electric, gas, oil or water in your home?: no 1. Within the past 12 months, we worried whether our food would run out before we got money to buy more.: Don't know/refused 2. Within the past 12 months, the food we bought just didn't last and we didn't have money to get more.: Don't know/refused Has lack of transportation kept you from medical appointments or from doing things needed for daily living?: no Has anyone in your life made you feel unsafe or unsupported?: no How hard is it for you to pay for the very basics like food, housing, medical care, and heating? Would you say it is:: Not hard at all Do you want help finding or keeping work or a job?: I do not need or want help If for any reason you need help with day-to-day activities such as bathing, preparing meals, shopping, managing finances, etc., do you get the help you need?: I don?t need any help How often do you feel lonely or isolated from those around you?: Never Do you speak a language other than Russian at home?: No Does the patient want assistance with any of the above?: No
--- NOTE | 2025-02-02 15:31 | W.PM.PROGNOT ---
Date of Service Date of service: 02/02/25 Time of Service: 15:31 Assessment and Plan Assessment and plan (1) Septic shock: Start date: 01/31/25 Status: Acute Assessment and plan: Continues stable, without norepinephrine. Good urine output Taking po, can stop IV fluids Unclear source, but LFTs/WBC/plts c/w anaplasmosis On Pip/tazo, vanco, doxycycline with cultures pending negative at 24hr, almost 48hr (2) Colitis: Start date: 01/31/25 Status: Acute Assessment and plan: Mild findings on CT. No abdominal pain/tenderness. Normal BM. No colitis clinically, so I don't think this is significant radiologic finding. (3) Mixed restrictive and obstructive lung disease: Status: Chronic Assessment and plan: A/w asbestosis. Continued aggressive nebulizer treatment and chronic therapy. Stable from respiratory standpoint, no steroids. He is established with palliative, consult placed. (4) Thrombocytopenia: Assessment and plan: Anaplasmosis may cause this problem and this appears to be acute with his acute presentation. If this doesn't normalize, this should be worked up including liver and bone marrow assessment. (5) CAD (coronary artery disease): Assessment and plan: Patient had negative troponins, clincally stable Recent echocardiogram does show preserved left ventricular ejection fraction. (6) Pancytopenia: Status: Acute Assessment and plan: plts low as above, also WBC and h/h. could be acute illness vs evolution of hematopoetic disorder. B12 reassuring. (7) DVT prophylaxis: Status: Acute Assessment and plan: on enoxaparin, but monitor plts (8) Discharge planning issues: Status: Acute Assessment and plan: PT consulted to mobiliize, possibly home 02/03 if feeling better and cultures negative. Subjective Subjective Patient reports: no new complaints, feels better and tolerating a regular diet; denies diarrhea, nausea, vomiting, shortness of breath or fever Interval history since last seen: Got a good night sleep for the first time in a while. Took melatonin, but feels like bundy really helped. He felt good until he sat up in chair, got a wave of feeling lightheaded and nauseous, but this did improve. No abdominal pain. He did have BM yesterday. Exam Narrative Exam Narrative: General: Alert and oriented x 3, no distress at rest. Lungs: Bilateral inspiratory coarse crackles at bases. No wheeze, normal effort, initially on 2 liters, then off Heart: Distant heart sounds with regular rate rhythm, 1/6 systolic murmur. No rubs or gallops appreciated. Abdomen: Soft, NT/ND Extremities: Without clubbing, cyanosis, or pitting edema. warm Objective Last Vital Signs Temp 36.5 C 02/02/25 11:46 Pulse 79 02/02/25 12:54 Resp 16 02/02/25 12:38 BP 122/72 02/02/25 11:46 Pulse Ox 90 L 02/02/25 13:07 Laboratory Results - last 24 hr 02/02/25 05:25 WBC 2.50 L RBC 3.20 L Hgb 10.1 L Hct 31.5 L MCV 98 H MCH 31.6 MCHC 32.1 RDW 15.9 H Plt Count 77 L MPV 9.7 Sodium 143 Potassium 4.2 Chloride 108 H Carbon Dioxide 31.1 Anion Gap 3.9 BUN 16 Creatinine 1.1 Est GFR (CKD-EPI 2020) 65.79 Glucose 98 Calcium 8.2 L Magnesium 2.0 Total Bilirubin 0.4 AST 38 H ALT 44 Alkaline Phosphatase 136 H Total Protein 5.3 L Albumin 2.6 L Vitamin B12 503 Time Spent with Patient Time Spent with Patient: 35-49 minutes Time was spent: preparing to see the patient(eg.review tests), obtaining and/or reviewing separately otained hiistory, ordering medications,tests, procedures, referring, communicating with other health clinical care coordinator, indepentently interpreting results, counseling the patient and care coordination
[2025-02-02] MEDS: Melatonin 3 MG TAB 6 MG PO (21:04)
[2025-02-02] MEDS: Atorvastatin 40 MG TAB PO (21:04)
[2025-02-03] MEDS: PIPERACILLIN/TAZO 3.375 GM in Normal Saline 50 ML IVPB ×3 (00:23→12:00)
[2025-02-03 01:36] VITALS: BP 108/58; PULSE 87; RESP 15; TEMP 36.4; O2SAT 94
[2025-02-03] MEDS: DOXYCYCLINE 100 MG in Normal Saline 100 ML IVPB ×2 (04:24→16:00)
[2025-02-03 06:00] VITALS: PULSE 80; RESP 16; RESP 2; O2SAT 95
[2025-02-03] MEDS: Albuterol/Ipratropium 3 ML UPD VIAL UPD (06:00)
[2025-02-03 07:27] VITALS: BP 112/60; PULSE 82; RESP 16; TEMP 36.5; O2SAT 95
[2025-02-03 07:39] LABS: Vancomycin, Random 11.3 ug/mL
[2025-02-03] MEDS: Enoxaparin 40 MG/0.4 ML SYR SC (07:45)
[2025-02-03] MEDS: Tamsulosin 0.4 MG CAPCR PO (07:45)
[2025-02-03] MEDS: Clopidogrel 75 MG TAB PO (07:45)
[2025-02-03] MEDS: Gabapentin 100 MG CAP PO (07:45)
[2025-02-03] MEDS: Aspirin E.C. 81 MG TABEC PO (07:45)
[2025-02-03] MEDS: Normal Saline Flush 10 ML SYR IVP (08:41)
[2025-02-03 09:26] VITALS: O2SAT 95
--- NOTE | 2025-02-03 09:57 | PT.INTREAT ---
PT Notes Visit Reasons: Septic Shock Inpatient Physical Therapy Treatment Note [facility] Date:02/03/2025 PRECAUTIONS: Standard, telemetry, O2 via nasal cannula SUBJECTIVE: Patient reports he feels much better and stronger than he did yesterday hoping to go home today OBJECTIVE: []? PAIN: Denies VITALS: ? Pre-Treatment: 97% on 1L; on RA 94% ? during activity: 85% on 1 L recover to 91% with in 1 min; 94% in 5 Min 80% on RA recover in 3 mins to 91% on RA; 94% in 5 min ? Therapeutic Activities ([id number][]): Direct one-on-one instruction in dynamic activities to improve functional performance. ?? Provided skilled cues and instruction on performance and technique throughout. Patient education regarding pacing and breathing techniques to maximize activity tolerance? BED MOBILITY/TRANSFERS? Rolling L/R: Supervision with cues to bend knees to aid in rolling Supine-sit: min A with HOB elevated to 70 degrees, CGA with increased time and vc for breath control with HOB at 28 degrees ? Sit-supine: CGA with HOB at 28 degrees ? Sit-stand: SBA ?cues for hands ? Stand-sit: SBA cues for hands? Bed-Chair: SBA with FWW? Chair-bed: SBA FWW? Facilitated safe and correct performance of level surface ambulation covering a distance of 50 feet x 4 using use front wheeled walker with stand by assist and wheelchair follow for safety. Did not report of any increased pain. Denied headache, chest pain, and lightheadedness throughout activity. Minimal verbal cueing provided for pacing and breath control, directional changes, and posture to relax shoulders. STAIRS:2 steps with rail SBA and cues for breath control step to pattern ? Therapeutic Exercises ([id number][]): Direct one-on-one instruction in therapeutic exercises to develop strength, endurance, range of motion and flexibility. ? Exercises ?deep breathing PLB Provided skilled instruction in proper exercise performance ASSESSMENT: Patient with significant improvement in functional activity tolerance today tolerating progression with ambulation increased distance. MD present for part of session with patient requesting to ambulate without oxygen as he does at home MD in agreement therefore O2 removed. Patient demonstrated ability to recognize need for sit rest to recover when O2 sats dropped. Patient was recommended to keep oxygen on at end of session and at time of discharge to reduce episodes of low O2 saturation. Patient benefited from training on pursed lip breathing techniques to improve recovery and during functional tasks PLAN: 1-2x/day, 7 days/week x 1 week. Plan of care has been reviewed with the OPERATING SYSTEMS SPECIALIST providing the service under Physical Therapy direction. Initiate Physical Therapy intervention for strengthening, bed mobility, transfers, gait, stairs, balance training, use of assistive device. TREATMENT CODE/TIME: 35339y4, [id number] /[id number] DISCHARGE RECOMMENDATION: Home with HHPT and [facility] program
[2025-02-03] MEDS: Tiotropium/Olodaterol 10 PUFF INHALER 2 PUFF IH (10:10)
[2025-02-03 11:00] VITALS: BP 117/61; PULSE 80; RESP 16; TEMP 36.2; O2SAT 95
[2025-02-03 11:50] LABS: Procalcitonin < 0.10 ng/mL
[2025-02-03] MEDS: Nystatin POWDER 60 GM JAR TP (12:07)
[2025-02-03 15:34] VITALS: BP 136/73; PULSE 89; RESP 15; TEMP 36.5; O2SAT 97
--- NOTE | 2025-02-03 16:47 | CHAPLAIN ---
I visited with Ramón last night. 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 He moved to the [facility] to be closer to family, including his one grandchild. Ramón talked about his frustrations with his body slowing down, and how he's not able to do things he could do a few months ago. He seems well supported by family.
--- NOTE | 2025-02-03 16:50 | DSE_ITS ---
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 (4) Thrombocytopenia: (5) CAD (coronary artery disease): (6) Pancytopenia: Status: Acute (7) DVT prophylaxis: Status: Acute (8) Discharge planning issues: Status: Acute Discharge Plan Disposition Patient Disposition: Home W/Home Health Services Condition: Stable Discharge Details Reason For Visit: Septic Shock Admit Date/Time: 01/31/25 19:34 Admit Provider: Miko Birmingham Attending Provider: Miko Birmingham Primary Care Provider: Wilber Luna Hospital Course Hospital Course: This is an 84-year-old gentleman with ILD/asbestosis, COPD and pHTN on home oxygen, CKD who presented with generalized weakness and fever to 38.3. Infectious work up including CT chest/abd/pelvis, blood cultures, and urinalysis and cultures were unrevealing. His CT did show colon thickening, but he never had abdominal pain or tenderness or diarrhea. His WBC and platetets were low and AST elevated, which raised concern for anaplasmosis. He was admitted and treated with pip/tazo, vancomycin, and doxycycline for sepsis and possible anaplasmosis. He was initially hypotensive and required noriepinephrine breifly the first night. He had gradually improved strength and appetite over his 3-4 day stay. He was not febrile after the first night. His labs, hemodynamics, and respiratory status were stable. His oxygen requirement was at baseline at time of discharge. Of not his TSH was slightly low at 0.3. This should be repeated when he is not acutely ill. He was not overtly thyrotoxic. His hemoglobin did drop to the 10s, below his baseline. This should be followed along with the other cell counts and liver function. His procalcitonin was <.10 on the morning of discharge. He was sent home with 3 more days of cefdinir to cover an occult bacterial infection and 6 more day to complete 10 day course for presumed anaplasmosis. Lyme was negative but the rest of the tick panel was still pending at discharge. He was evaluated by PT and recommended home health PT along with RN for his medical condition. He also has palliative care follow up. PCP follow up 1 week Follow up results of tick panel Follow up pancytopenia, consider assessment of liver and bone marrow if not resolving Recommendations for Follow Up Recommended tests to be ordered by follow up provider: CBC/CMP and TSH/reflex 1 week Home Meds and New Rx's Prescriptions: New doxycycline hyclate 100 mg tablet 100 mg PO BID 6 Days Qty: 12 0RF cefdinir 300 mg capsule 300 mg PO BID 3 Days Qty: 6 0RF Continued gabapentin 100 mg capsule 100 mg PO BID nitroglycerin 0.4 mg tablet, sublingual 0.4 mg sublingual Q5M PRN Rx Instructions: do not exceed 3 doses per episode clopidogrel 75 mg tablet 75 mg PO DAILY triamcinolone acetonide 0.1 % cream 1 applic topical BID PRN acetaminophen 325 mg tablet 325 mg PO Q6H PRN furosemide 20 mg tablet 20 mg PO DAILY tamsulosin 0.4 mg capsule 0.4 mg PO DAILY umeclidinium-vilanterol [Anoro Ellipta] 62.5-25 mcg/actuation blister with device 1 inh inhalation DAILY albuterol sulfate 2.5 mg /3 mL (0.083 %) Solution For Nebulization 2.5 mg UPD Q4H PRN PRN (Reason: shortness of breath or wheezing) Qty: 90 0RF atorvastatin [Lipitor] 40 MG tablet 40 mg PO HS aspirin 81 mg Tablet,Delayed Release (Dr/Ec) 81 mg PO DAILY Discharge Instructions Instructions: Ehrlichia and Anaplasma Infections (DC) Additional Instructions: You had an infection in your blood. No bacteria grew in your blood, but your blood testing showed low levels of white blood cells and platlets and some liver inflammation, which is a pattern we see with the tick-bourne illness anaplasmosis. Doxycyline treats this. The other antibiotic is just in case we missed a more traditional infection. Stand Alone Forms: Nursing Discharge Form Referrals: Wilber Luna [Primary Care Provider, Medicine] - 02/07/25 1:00 pm Activity:: Activity as Tolerated Equipment/Supplies:: Walker Diet:: As Tolerated Discharge Orders Discharge Orders: Discharge Order (Routine); Ordered 02/03/25 Ordered By: Jaylan Quintero DS: Summary Time Spent with Patient providing and/or coordinating discharge services: Greater than 30 minutes Status at Discharge Functional status at discharge: uses cane/walker Overall status at discharge: patient is back to baseline Mental Status: mental status grossly normal Speech and Movement: speech and movement normal Mood: congruent mood Affect: normal affect Exam Narrative Exam Narrative: General: Alert and oriented x 3, no distress at rest. Lungs: Bilateral inspiratory coarse crackles at bases. No wheeze, normal effort, off oxygen at rest. Heart: Distant heart sounds with regular rate rhythm, 1/6 systolic murmur. No rubs or gallops appreciated. Abdomen: Soft, NT/ND Extremities: Without clubbing, cyanosis, or pitting edema. warm Psych Mental Status: mental status grossly normal Speech and Movement: speech and movement normal Mood: congruent mood Affect: normal affect DS: Data Vitals/I&O Vitals and I&O: Vital Signs Temperature 36.5 C 02/03/25 15:34 Temperature Source Temporal Artery Scan 02/03/25 15:34 Pulse 89 02/03/25 15:34 Pulse 70 02/02/25 10:00 Respiratory Rate 15 02/03/25 15:34 Respiratory Effort Non-Labored, Incrsd Work of Breathing 01/31/25 21:07 Respiratory Depth Shallow 01/31/25 21:07 Respiratory Pattern Tachypnea 01/31/25 21:07 Blood Pressure 136/73 02/03/25 15:34 Blood Pressure Mean 94 02/03/25 15:34 Blood Pressure Position Supine 01/31/25 21:07 Pulse Oximetry 97 02/03/25 15:34 Oxygen Delivery Method Nasal Cannula 02/03/25 15:34 Oxygen Flow Rate 1 02/03/25 15:34 Pain Level 0 02/03/25 11:00 Intake & Output 02/02/25 02/03/25 02/03/25 23:59 11:59 23:59 Intake Total 440 / 2390 260 / 310 50 / 310 Output Total 450 / 1775 1200 / 1200 Balance -10 / 5 -940 / -890 50 / -890 Weight 87.6 kg Intake: IV 200 / 1500 260 / 310 50 / 310 Oral 240 / 890 Output: Urine 450 / 1775 1200 / 1200 Other: Urine Color Straw Yellow Urine Appearance Clear Clear Data Completed and Pending Labs on day of discharge: Labs from last 24 hours 02/03/25 02/03/25 01/31/25 10:35 06:50 16:40 Procalcitonin < 0.10 Random Vancomycin 11.3 Lyme Disease Antibody Negative Preliminary micro results at discharge 01/31/25 16:40 Blood Blood Culture - Preliminary NO GROWTH 48 HOURS 01/31/25 16:00 Blood Blood Culture - Preliminary NO GROWTH 48 HOURS PFSH All Active Problems (Updated 02/01/25 @ 11:01 by Jaylan Quintero) Discharge planning issues (Acute) DVT prophylaxis (Acute) Pancytopenia (Acute) Colitis (Acute) Septic shock (Acute) Colitis (Acute) Septic shock (Acute) Advanced care planning/counseling discussion (Acute) Palliative care encounter (Acute) CKD (chronic kidney disease) stage 3, GFR 30-59 ml/min (Acute) Ambulatory dysfunction (Acute) Mild cognitive impairment (Acute) Hx Head trauma Dependence on continuous supplemental oxygen (Acute) Chronic respiratory failure (Acute) Pulmonary hypertension (Acute) Acute on chronic respiratory failure with hypoxia and hypercapnia (Acute) Chronic hypoxic respiratory failure (Chronic) Asbestos-induced pleural plaque (Acute) Lumbar stenosis (Acute) 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 COPD (chronic obstructive pulmonary disease) (Chronic) Pseudophakia (Acute) Chronic kidney disease (CKD) (Chronic) BMI 30.0-30.9,adult (Acute) Prediabetes (Acute) Mild memory disturbance (Acute) Dyspnea on exertion (Acute) Closed head injury (Acute) Medical History Arteriosclerosis Polyneuropathy Pain in thoracic spine Obesity (BMI 30-39.9) Hearing loss Chronic hypoxic-ischemic brain injury Kidney lesion Lower urinary tract symptoms (LUTS) Vascular disorder CAD (coronary artery disease) Vitamin D deficiency (05/22/17) Calculus of kidney (05/22/17) Asbestosis (05/22/17) Prostate cancer, primary, with metastasis from prostate to other site Anemia Peripheral neuropathy Sick sinus syndrome Renal mass Thrombocytopenia Abdominal aortic aneurysm Surgical History H/O prosthetic heart valve Hx of artificial eye lens S/P coronary artery stent placement S/P arthroscopic knee surgery S/P prostatectomy S/P CABG x 4 S/P cervical discectomy S/P lumbar spine operation Hx of aortic valve replacement Family History Mother Essential hypertension Congestive heart failure Father Diabetes Stroke Social History Smoking/Tobacco Use Status: Former Tobacco Use Smoking risk assessment performed?: Yes Alcohol Intake: current Alcohol Intake frequency: a few times a month Drug use: Never Substance use type: does not use Household members: spouse Housing: house 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
--- NOTE | 2025-02-03 16:52 | PDOC.HHF2F ---
Home Health Referral Home Health Orders Clinical synopsis of why skilled professionals are needed: This is an 84-year-old gentleman with ILD/asbestosis, COPD and pHTN on home oxygen, CKD who presented with generalized weakness and fever to 38.3. Infectious work up including CT chest/abd/pelvis, blood cultures, and urinalysis and cultures were unrevealing. His CT did show colon thickening, but he never had abdominal pain or tenderness or diarrhea. His WBC and platetets were low and AST elevated, which raised concern for anaplasmosis. He was admitted and treated with pip/tazo, vancomycin, and doxycycline for sepsis and possible anaplasmosis. He was initially hypotensive and required noriepinephrine breifly the first night. He had gradually improved strength and appetite over his 3-4 day stay. He was not febrile after the first night. His labs, hemodynamics, and respiratory status were stable. His oxygen requirement was at baseline at time of discharge. Of not his TSH was slightly low at 0.3. This should be repeated when he is not acutely ill. He was not overtly thyrotoxic. His hemoglobin did drop to the 10s, below his baseline. This should be followed along with the other cell counts and liver function. His procalcitonin was <.10 on the morning of discharge. He was sent home with 3 more days of cefdinir to cover an occult bacterial infection and 6 more day to complete 10 day course for presumed anaplasmosis. Lyme was negative but the rest of the tick panel was still pending at discharge. He was evaluated by PT and recommended home health PT along with RN for his medical condition. He also has palliative care follow up. PCP follow up 1 week Follow up results of tick panel Follow up pancytopenia, consider assessment of liver and bone marrow if not resolving Medical diagnosis necessitation home health referral: sepsis vs anaplasmosis, pancytopenia, weakness, chronic respiratory failure Registered Nurse: Check all that apply Instruct on new or changed medication(s)/assess compliance: Ordered Assess for exacerbation of medical condition, instruct patient/caregivers on signs and symptoms to report for early detection: Ordered Physical Therapist: Check all that apply Increase strength & endurance for safe mobility at home: Ordered To design/establish home maintenance program: Ordered Home safety evaluation and teaching/gait training including stair management (if applicable): Ordered Home Bound Status Requires the aid of supportive device (check all that apply): Cane and Walker Describe why leaving home would require a considerable and taxing effort: Requires frequent rest periods and Oxygen Encounter Date and Reason: I certify that a FTF encounter for this patient was performed on February 03, 2025 and that such encounter was related to the primary reason the patient requires home health services. The encounter was conducted in the following manner: By me as the certifying physician, LIBRARY SALES CONSULTANT, PA or By an inpatient physician, LIBRARY SALES CONSULTANT or PA during an inpatient stay who communicated findings to me, Certification And Authentication I certify that I composed the above information based on my clinical judgment relating to this patient's medical condition and, if applicable, clinical findings communicated to me by the NPP or inpatient physician who performed the FTF encounter. Name of Provider that will be monitoring home health services: Wilber Luna
--- NOTE | 2025-02-03 17:02 | PDOC.CMDIS ---
Date of service: 02/03/25 Time of Service: 17:03 LACE Index Scoring Tool Questions: Length of Stay (in days): 3 Was the patient admitted via the E.D.?: Yes Comorbidities: Chronic Pulmonary Disease, Liver or Renal Disease and Metastatic Solid Tumor E.D. Visits: 2 Answers: Total Score: 13 Risk of Readmission: High Risk Care Management Discharge Plan Reason for Hospitalization: sepsis Discharge Plan: Ramón was discharged home this afternoon with new HH services of RN and PT. He will f/u with his PCP on 02/07 and continue per his plan of care. He was transported home by his daughter. Patient/Family Education Needs: Review of discharge instructions, activity, limitations, and discuss Ask me 3. Services Needed at Discharge: Home Health Care Services (RN and PT)
[2025-02-04 09:22] LABS: B. miyamotoi PCR Negative (Negative); Babesia divergens/MO-1 Negative (Negative); Babesia duncani Negative (Negative); Babesia microti Negative (Negative); Ehrlichia chaffeensis Negative (Negative); Ehrlichia ewingii/canis Negative (Negative); Ehrlichia muris eauclairensis Negative (Negative)
[2025-02-04 10:09] LABS: Anaplasma phagocytophilum Positive (Negative)
== END 2025-02-03 17:43 | disposition home health service (06) | DRG 871 ==
LOC: ER 15:58 → ICU 20:23 → MS 02-02 11:29
PROVIDERS: Admitting Provider Family Medicine; Emergency Provider Student in an Organized Health Care Education/Training Program; PCP Student in an Organized Health Care Education/Training Program; Responsible Provider Family Medicine; Visit Provider Family Medicine
DX: A41.9 Sepsis, unspecified organism (principal); R65.21 Severe sepsis with septic shock; K52.9 Noninfective gastroenteritis and colitis, unspecified; J96.22 Acute and chronic respiratory failure with hypercapnia; J96.21 Acute and chronic respiratory failure with hypoxia; D69.6 Thrombocytopenia, unspecified; J98.4 Other disorders of lung; J61 Pneumoconiosis due to asbestos and other mineral fibers; I25.10 Atherosclerotic heart disease of native coronary artery without angina pectoris; E78.2 Mixed hyperlipidemia; C61 Malignant neoplasm of prostate; D61.818 Other pancytopenia; A79.82 Anaplasmosis [A. phagocytophilum]; C79.9 Secondary malignant neoplasm of unspecified site; R53.1 Weakness; I27.20 Pulmonary hypertension, unspecified; Z99.81 Dependence on supplemental oxygen; J44.9 Chronic obstructive pulmonary disease, unspecified; N18.30 Chronic kidney disease, stage 3 unspecified; Z95.0 Presence of cardiac pacemaker; Z95.1 Presence of aortocoronary bypass graft; Z95.4 Presence of other heart-valve replacement; M48.061 Spinal stenosis, lumbar region without neurogenic claudication; R73.03 Prediabetes; R41.3 Other amnesia; I49.5 Sick sinus syndrome; E55.9 Vitamin D deficiency, unspecified; G62.9 Polyneuropathy, unspecified; Z95.5 Presence of coronary angioplasty implant and graft
CPT/HCPCS: 00123; 36415; 36556; 36592; 71045; 71250; 76937; 80053; 82805; 84145; 85027; 87040; 87637; 87798; 93005; 96365; 96366; 96367; 96372; 96375; 97110; 97162; 97530; 99291; J1650; 70450; 74176; 80202; 81003; 81015; 82607; 83605; 83735; 84443; 84484; 85025; 85610; 85730; 86618; 93010; 94640; 94667; 94668; 94760; 99223; 99232; 99233; 99239; J0131; J1815; J2405; J2543; J3372; J7620